=== PATIENT | female | born 1970 | race Caucasian/White ===

== ENCOUNTER 2020-01-29 11:47 | Outpatient (CLI) | payer SELFPAY ==
[2020-01-29 12:02] LABS: Hematocrit 43.6 % (35.0-49.0); Mean Corpuscular HGB Conc 32.1 g/dL (32.0-36.0); Mean Corpuscular Hemoglobin 27.9 pg (27.0-31.0); Mean Platelet Volume 10.4 fl (9.2-11.8); Platelet Count Result 143 K/mm3 (150-420); Red Blood Count 5.01 M/mm3 (4.20-5.40)
[2020-01-29 13:07] LABS: Alanine Aminotransferase 33 U/L (14-59); Albumin Level 3.4 g/dL (3.4-5.0); Alkaline Phosphatase 100 U/L (46-116); Anion Gap 17.1 mmol/L (7-16); Aspartate Amino Transferase 24 U/L (15-37); Bilirubin,Total 0.2 mg/dL (0.00-1.00); Blood Urea Nitrogen 12 mg/dL (7-18); Calcium 8.5 mg/dL (8.5-10.1); Carbon Dioxide 25 mmol/L (21-32); Chloride 106 mmol/L (98-108); Estimated Glomerular Filt Rate 58; Glucose 94 mg/dL (70-99); Osmolality Calculated 297 mOsm/kg (285-295); Potassium 4.1 mmol/L (3.5-5.1); Sodium 144 mmol/L (136-145); Total Protein 6.6 g/dL (6.4-8.2)
[2020-01-29 13:18] LABS: White Blood Count 47.4 K/mm3 (4.8-10.8)
[2020-01-29 13:19] LABS: Band Neutrophils Percent 1 % (0-6); Basophils Percent Manual 0 % (0-1); Eosinophils Percent Manual 0 % (1-6); Lymphocytes Absolute Manual 39.81 K/mm3 (1.1-4.5); Lymphocytes Percent Manual 84 % (18-44); Monocytes Absolute Manual 1.42 K/mm3 (0.1-0.90); Monocytes Percent Manual 3 % (3-9); Neutrophils Absolute Manual 6.16 K/mm3 (1.7-7.2); Neutrophils Percent Manual 12 % (46-73); Total Cells Counted 100
[2020-01-29 13:20] LABS: Atypical Lymphocytes Present; Platelet Estimate Adequate (Adequate)
== END 2020-01-29 11:48 | disposition home or self-care (01) ==
PROVIDERS: PCP Nurse Practitioner Family; Visit Provider Internal Medicine Hematology & Oncology
DX: Z79.899 Other long term (current) drug therapy (principal); C91.10 Chronic lymphocytic leukemia of B-cell type not having achieved remission
CPT/HCPCS: 36415; 80053; 85025

== ENCOUNTER 2020-06-14 20:45 | Emergency (ER) | payer MEDICAID, SELFPAY ==
[2020-06-14] VITALS (9 sets, daily range): BP systolic 161–219; BP diastolic 89–126; PULSE 83–130; RESP 20; TEMP 37.5–38.2; O2SAT 98
--- NOTE | ~2020-06-14 | XR_ITS ---
EXAMINATION: XR chest 2V DATE: 06/14/2020 21:55 INDICATION: Fever TECHNIQUE: PA and lateral views of the chest are obtained. COMPARISON: 10/15/2019 FINDINGS: The lungs are free of acute opacities. There is no pleural effusion or pneumothorax. The ca rdiomediastinal silhouette is normal. There is moderate thoracic spondylosis. IMPRESSION: 1. No acute cardiopulmonary abnormality. Reviewed, dictated and finalized at location A.
--- NOTE | ~2020-06-14 | CT_ITS ---
EXAMINATION: CT abdomen pelvis wo con DATE: 06/14/2020 21:55 INDICATION: Hematuria, history of CLL TECHNIQUE: Computed tomography (CT) of the abdomen and pelvis was performed without intravenous contr ast. The dose-length product (DLP) was 1474.14 mGy-cm. Automated exposure control and iterative recon struction technique were employed. COMPARISON: None FINDINGS: The lung bases are clear. The heart size is normal. The liver is diffusely low in attenuati on when compared with the spleen, consistent with hepatic steatosis. The enlarged spleen measures 18. 8 cm in craniocaudal dimension. The pancreas, gallbladder, and right adrenal gland are normal. There is a 1.4 cm adenoma of the left adrenal gland. The right kidney is unremarkable. There is a 1.[address] of the left kidney lower pole. No stones are identified in the kidneys, ureters, or bladder. There is no hydronephrosis or hydroureter. Enlarged pelvic and bilateral inguinal lymph nodes measure up t o 1.7 cm in short axis. The appendix is normal. There is no free intraperitoneal gas or evidence of b owel obstruction. There is moderate lumbar spondylosis. IMPRESSION: 1. No CT correlate for the patient's symptoms. 2. Splenomegaly and pelvic lymphadenopathy, likely related to history of CLL. Reviewed, dictated and finalized at location A.
[2020-06-14 21:03] LABS: Add Urine Microscopic? YES; Appearance Urine Sl Cloudy (Clear); Bilirubin Urine Negative (Negative); Blood Urine 3+ (Negative); Color Urine Yellow (Yellow); Glucose Urine UA Negative (Negative); Ketones Urine Negative (Negative); Leukocyte Esterase Ur Negative LEU/UL (Negative); Nitrate Urine Positive (Negative); Protein Urine 3+ (Negative); Specific Grav Ur >= 1.030 (1.010-1.020); pH Urine 5.5 (5.0-8.0)
[2020-06-14 21:10] LABS: Bacteria Urine 4+ /hpf; Mucus Urine Moderate /lpf; Squamous Epithelial Cell Urine Few /hpf (Few); WBC Urine 0-3 /hpf (0-3)
[2020-06-14] MEDS: ACETAMINOPHEN 500 MG TABLET 1000 MG PO (21:11)
[2020-06-14] MEDS: cloNIDine HCL 0.2 MG TABLET PO (21:11)
[2020-06-14 21:34] LABS: Hematocrit 43.6 % (35.0-49.0); Hemoglobin 13.7 g/dL (12.0-15.0); Mean Corpuscular HGB Conc 31.4 g/dL (32.0-36.0); Mean Corpuscular Hemoglobin 28.6 pg (27.0-31.0); Mean Platelet Volume 10.2 fl (9.2-11.8); Platelet Count Result 173 K/mm3 (150-420); Red Blood Count 4.79 M/mm3 (4.20-5.40); Red Cell Distribution Width 16.1 % (11.6-14.4)
[2020-06-14 21:49] LABS: Partial Thromboplastin Time 24.6 SEC (22.3-31.6); Prothrombin Time 10.7 Seconds (9.64-11.0)
[2020-06-14 21:50] LABS: Alanine Aminotransferase 27 U/L (14-59); Albumin Level 3.5 g/dL (3.4-5.0); Alkaline Phosphatase 123 U/L (46-116); Anion Gap 12 mmol/L (8-16); Aspartate Amino Transferase 19 U/L (15-37); Bilirubin,Total 0.4 mg/dL (0.00-1.00); Blood Urea Nitrogen 16 mg/dL (7-18); Calcium 8.6 mg/dL (8.5-10.1); Carbon Dioxide 25 mmol/L (21-32); Chloride 103 mmol/L (98-108); Estimated CRCL calculation 53 ml/min; Estimated Glomerular Filt Rate 36; Glucose 109 mg/dL (70-99); Lipase 160 U/L (73-393); Osmolality Calculated 292 mOsm/kg (285-295); Potassium 3.5 mmol/L (3.5-5.1); Sodium 140 mmol/L (136-145); Total Protein 7.5 g/dL (6.4-8.2)
[2020-06-14 21:51] LABS: White Blood Count 87.2 K/mm3 (4.8-10.8)
[2020-06-14 21:55] LABS: Lactic Acid Reflex 1.6 mmol/L (0.4-2.0)
[2020-06-14 21:59] LABS: Band Neutrophils Percent 1 % (0-6); Eosinophils Absolute Manual 1.74 K/mm3 (0.02-0.5); Eosinophils Percent Manual 2 % (1-6); Lymphocytes Absolute Manual 68.88 K/mm3 (1.1-4.5); Lymphocytes Percent Manual 79 % (18-44); Neutrophils Absolute Manual 10.46 K/mm3 (1.7-7.2); Neutrophils Percent Manual 11 % (46-73); Total Cells Counted 100
[2020-06-14 22:00] LABS: Monocytes Percent Manual 7 % (3-9); Platelet Estimate Adequate (Adequate); Smudge Cells FEW
[2020-06-14 22:01] LABS: Atypical Lymphocytes Present
[2020-06-14] MEDS: amLODIPine BESYLATE 5 MG TABLET 10 MG PO (22:16)
[2020-06-14] MEDS: lisinopriL 20 MG TABLET 40 MG PO (22:21)
[2020-06-14] MEDS: METOPROLOL SUCCINATE EXT REL 25 MG TABCR PO (22:21)
--- NOTE | 2020-06-14 22:21 | ED.ABDPAIN ---
HPI - Abdominal Pain General Chief Complaint: Urogenital-Female Stated Complaint: 49YO morbidly obese female w/ known h/o CLL 9Currently under wait & Watch) here c/o 1 day h/o suprapubic pain associated w/ incomplete sensation of emptying. Patient admits she has not taken her meds for Bp today comes into ed for eval concerned about a possible kidney infection Related Data Home Medications Medication Instructions Recorded Confirmed lisinopril 40 mg PO BID 10/15/19 06/14/20 metoprolol succinate 25 mg PO DAILY 10/15/19 06/14/20 Allergies Allergy/AdvReac Type Severity Reaction Status Date / Time No Known Allergies Allergy Verified 05/11/20 07:28 Review of Systems Review of Systems: All systems reviewed & are unremarkable except as noted in HPI and below Constitutional: Constitutional: Reports as per HPI and Reports fever(s) Eyes: Eyes: Reports no additional eye complaints ENT: Reports system reviewed and no additional complaints, except as documented, Denies dysphagia, Denies vertigo, Denies dizziness, Denies epistaxis, Denies nasal congestion and Denies sore throat Cardiovascular: Cardiovascular: Reports no additional cardiovascular complaints and Reports rapid heart rate Respiratory: Respiratory: Reports no additional respiratory complaints, Denies chest congestion, Denies cough, Denies dyspnea and Denies wheezing Gastrointestinal: Gastrointestinal: Reports abdominal pain Genitourinary: Genitourinary: Reports as per HPI, Reports hematuria and Reports dysuria Musculoskeletal: Musculoskeletal: Reports no additional musculoskeletal complaints Integumentary/Breasts: Skin/Breast: Reports system reviewed and no additional complaints, except as docu Neurologic: Reports system reviewed and no additional complaints, except as documented, Denies vertigo, Denies dizziness, Denies syncope and Denies focal weakness Psychiatric: Psychiatric: Reports no additional psychiatric complaints Endocrine: Endocrine: Reports no additional endocrine complaints [facility] Past Medical History Medical History CLL (chronic lymphocytic leukemia) DVT (deep venous thrombosis) Hypertension Nicotine dependence, cigarettes, uncomplicated Superficial granulomatous pyoderma Vasculitis Surgical History Surgical History History of adenoidectomy Hx of tonsillectomy Family History Family History Father COPD (chronic obstructive pulmonary disease) Social History Social History Smoking status: Current every day smoker Additional occupation/education comments: [employer] Exam Const: General: alert and diaphoretic Nutritional Appearance: obese Orientation/consciousness: patient oriented x3 HENMT: Head: normal to inspection Eyes: Conjunctivae: conjunctivae normal Pupils: Equal, round and reactive pupils present Neck: Neck: normal visual inspection Chest: Chest palpation & inspection: normal inspection of the chest Resp: Effort & Inspection: normal respiratory effort Auscultation: clear to auscultation bilaterally Cardio: Rate: regular rate and tachycardic Rhythm: regular rhythm GI: GI Palp: Yes Soft to palpation, No Tenderness to palpation present (GI), No Guarding due to palpation present (GI), No Rigid due to palpation and No Rebound tenderness present Auscultation: normal bowel sounds : General: Yes no CVA tenderness Back/Spine/Pelvis: Back: no CVA tenderness Skin: General skin exam: normal color Neuro: General: patient oriented x3, moves all extremities, no focal motor deficits and CN's II-XI intact bilaterally Extrem: General: normal to inspection Psych: Appearance: grossly normal Mental Status: mental status grossly normal Affect: normal affect Attitude: cooperative Thought cont
--- NOTE | 2020-06-14 22:31 | PC.NURSE ---
ALL BLOOD PRESSURE MEDICATIONS GIVEN VERIFIED BY ERP - BLOOD PRESSURE 169/98 - PT REPORTS ALWAYS HAVING AN ELEVATED WBC COUNT R/T HER LEUKEMIA - PT ASKING WHY SHE CANNOT HAVE ANTIBIOTICS FOR SYMPTOMS - ERP AT BEDSIDE INFORMS PATIENT WE ARE CALLING [facility] TO SPEAK WITH SOMEONE ABOUT TRANSFER
--- NOTE | 2020-06-14 23:29 | PC.NURSE ---
VORB FOR NS WAS A SLOW RATE D/T HIGH BLOOD PRESSURE - ONLY 300 ML INFUSED AT DISCHARGE - PT SIGNS AMA FORM SHE DOES NOT WANT TO BE TAKEN TO [facility] BY AMBULANCE. PT STATES THAT SHE WANTS HER DAUGHTER TO TAKE HER SO THAT SHE CAN HAVE HER OWN BELONGINGS.
== END 2020-06-14 23:34 | disposition left against medical advice (07) ==
PROVIDERS: Emergency Provider Family Medicine; PCP Family Medicine
DX: C91.10 Chronic lymphocytic leukemia of B-cell type not having achieved remission (principal); N30.01 Acute cystitis with hematuria; N17.9 Acute kidney failure, unspecified
CPT/HCPCS: 36415; 71046; 74176; 80053; 81001; 83605; 83690; 85025; 85610; 85730; 87040; 87077; 87086; 87088; 87186; 96361; 96365; 96375; 99284; A9270; J2060; J2543; J7030

== ENCOUNTER 2020-06-15 18:31 | Emergency (ER) | payer MEDICAID, SELFPAY ==
--- NOTE | ~2020-06-15 | XR_ITS ---
XR heel LT min 2V DATE: 06/15/2020 19:05 INDICATION: Heel pain TECHNIQUE: Axial and lateral views COMPARISON: None FINDINGS: There is prominent plantar and posterior calcaneal enthesopathy. No fracture or dislocation or bone destruction of the calcaneus. There is osteoarthritic mild spurring at the tibiotalar joint. IMPRESSION: Plantar and posterior calcaneal enthesopathy Reviewed, dictated and finalized at location A.
[2020-06-15 18:40] VITALS: BP 154/79; PULSE 61; RESP 16; TEMP 36.7; O2SAT 96
--- NOTE | 2020-06-15 18:49 | ED.GENADULT ---
HPI - General Adult General Chief complaint: Extremity Problem,Nontraumatic Stated complaint: L Heal Pain Source: patient Mode of arrival: ambulatory Limitations: no limitations History of Present Illness HPI narrative: Nicole is a 49F with a PMH of HTN, pyoderma gangrenosum, tobacco abuse, vasculitis, urosepsis, and CLL that presented to the ED with concerns of a UTI and left heel pain. Yesterday she had some urinary retention, a fever, fatige, nausea and felt flushed. This is how she has felt with her UTIs that progressed to sepsis in the past. She came to the ED and was found to have a wildly elevated WBC count and a UA consistent UTI. She received Zosyn in the ED and was suppose to be transferred to [place] but signed out AMA and never went. Today she continues to have fatigue, is feeling flushed, some nausea and some trouble emptying her bladder but no hematuria or dysuria. She denies any more fevers, SOB, CP, syncope or confusion. She switched shoes recently and how has left heel swelling and pain. It is worse with activity and better with rest. She is having to walk on the ball of her foot because her heel is so painful. Related Data Home Medications Medication Instructions Recorded Confirmed lisinopril 40 mg PO BID 10/15/19 06/15/20 metoprolol succinate 25 mg PO DAILY 10/15/19 06/15/20 Allergies Allergy/AdvReac Type Severity Reaction Status Date / Time No Known Allergies Allergy Verified 05/11/20 07:28 Review of Systems Constitutional: Constitutional: Denies chills, Reports fatigue, Denies fever(s) and Reports weakness Eyes: Eyes: Reports no additional eye complaints ENT: Reports system reviewed and no additional complaints, except as documented Cardiovascular: Cardiovascular: Reports no additional cardiovascular complaints Respiratory: Respiratory: Reports no additional respiratory complaints Gastrointestinal: Gastrointestinal: Denies diarrhea, Reports nausea and Denies vomiting Genitourinary: Genitourinary: Reports as per HPI Musculoskeletal: Musculoskeletal: Reports as per HPI Integumentary/Breasts: Skin/Breast: Reports system reviewed and no additional complaints, except as docu Neurologic: Reports system reviewed and no additional complaints, except as documented Psychiatric: Psychiatric: Reports no additional psychiatric complaints Endocrine: Endocrine: Reports no additional endocrine complaints Hematologic/Lymphatic: Hematologic/Lymphatic: Reports no additional hematologic/lymphatic complaints Allergic/Immunologic: Allergic/Immunologic: Reports no additional allergic/immunologic complaints [facility] Past Medical History Medical History CLL (chronic lymphocytic leukemia) DVT (deep venous thrombosis) Hypertension Nicotine dependence, cigarettes, uncomplicated Superficial granulomatous pyoderma Vasculitis Surgical History Surgical History History of adenoidectomy Hx of tonsillectomy Family History Family History Father COPD (chronic obstructive pulmonary disease) Social History Social History Smoking status: Current every day smoker Additional occupation/education comments: [employer] Exam Const: General: no acute distress and alert Orientation/consciousness: patient oriented x3 Limitations: No altered mental status HENMT: Head: normal to inspection Eyes: Conjunctivae: conjunctivae normal Pupils: Equal, round and reactive pupils present Neck: Neck: normal visual inspection Resp: Effort & Inspection: normal respiratory effort and not labored Auscultation: clear to auscultation bilaterally Cardio: Rate: regular rate Rhythm: regular rhythm Heart sounds: no murmurs GI: GI Palp: Yes Soft to palpation, No Tenderness to palpation present (GI
[2020-06-15 19:12] LABS: Hematocrit 42.6 % (35.0-49.0); Hemoglobin 13.4 g/dL (12.0-15.0); Mean Corpuscular HGB Conc 31.5 g/dL (32.0-36.0); Mean Corpuscular Hemoglobin 28.8 pg (27.0-31.0); Mean Corpuscular Volume 91.6 fL (78.0-102.0); Mean Platelet Volume 9.9 fl (9.2-11.8); Platelet Count Result 146 K/mm3 (150-420); Red Blood Count 4.65 M/mm3 (4.20-5.40); Red Cell Distribution Width 16.1 % (11.6-14.4)
[2020-06-15 19:29] LABS: Alanine Aminotransferase 22 U/L (14-59); Albumin Level 3.1 g/dL (3.4-5.0); Alkaline Phosphatase 108 U/L (46-116); Anion Gap 12 mmol/L (8-16); Aspartate Amino Transferase 16 U/L (15-37); Bilirubin,Total 0.5 mg/dL (0.00-1.00); Blood Urea Nitrogen 15 mg/dL (7-18); Calcium 8.7 mg/dL (8.5-10.1); Carbon Dioxide 24 mmol/L (21-32); Chloride 105 mmol/L (98-108); Estimated Glomerular Filt Rate 40; Glucose 99 mg/dL (70-99); Osmolality Calculated 292 mOsm/kg (285-295); Potassium 3.7 mmol/L (3.5-5.1); Sodium 141 mmol/L (136-145)
[2020-06-15 19:37] LABS: Add Urine Microscopic? YES; Appearance Urine Clear (Clear); Bilirubin Urine 1+ (Negative); Blood Urine 3+ (Negative); Color Urine Yellow (Yellow); Glucose Urine UA Negative (Negative); Ketones Urine Negative (Negative); Leukocyte Esterase Ur Negative (Negative); Nitrate Urine Negative (Negative); Protein Urine 3+ (Negative); Specific Grav Ur >= 1.030 (1.010-1.020); pH Urine 5.5 (5.0-8.0)
[2020-06-15 19:42] LABS: White Blood Count 53.9 K/mm3 (4.8-10.8)
[2020-06-15 19:43] LABS: Platelet Estimate Adequate (Adequate)
[2020-06-15 19:44] LABS: Band Neutrophils Percent 0 % (0-6); Basophils Percent Manual 0 % (0-1); Eosinophils Absolute Manual 0.53 K/mm3 (0.02-0.5); Eosinophils Percent Manual 1 % (1-6); Lymphocytes Absolute Manual 43.12 K/mm3 (1.1-4.5); Lymphocytes Percent Manual 80 % (18-44); Monocytes Absolute Manual 1.07 K/mm3 (0.1-0.90); Monocytes Percent Manual 2 % (3-9); Neutrophils Absolute Manual 9.16 K/mm3 (1.7-7.2); Neutrophils Percent Manual 17 % (46-73); Smudge Cells FEW; Total Cells Counted 100
[2020-06-15 19:48] LABS: WBC Urine 0-3 /hpf (0-3)
[2020-06-15 19:49] LABS: Bacteria Urine Trace /hpf; Squamous Epithelial Cell Urine Moderate /hpf (Few)
[2020-06-15] MEDS: cefTRIAXone 1 GM VIAL 2 GM IM (20:00)
[2020-06-15 20:17] VITALS: RESP 17
== END 2020-06-15 20:18 | disposition home or self-care (01) ==
PROVIDERS: Emergency Provider Family Medicine; PCP Family Medicine
DX: N39.0 Urinary tract infection, site not specified (principal); M77.52 Other enthesopathy of left foot and ankle; I10 Essential (primary) hypertension; C91.10 Chronic lymphocytic leukemia of B-cell type not having achieved remission; L88 Pyoderma gangrenosum; I77.6 Arteritis, unspecified; F17.200 Nicotine dependence, unspecified, uncomplicated; Z86.718 Personal history of other venous thrombosis and embolism
CPT/HCPCS: 36415; 73650; 80053; 81001; 85025; 96372; 99283; J0696

== ENCOUNTER 2020-09-24 09:01 | Outpatient (CLI) | payer OTHER, SELFPAY ==
[2020-09-24 09:36] LABS: SARS-CoV-2 Ag Negative (Negative)
[2020-09-25 20:00] LABS: SARS-CoV-2 RNA PCR Negative
== END 2020-09-24 09:02 | disposition home or self-care (01) ==
PROVIDERS: PCP Nurse Practitioner Family; Visit Provider Nurse Practitioner Family
DX: R48.1 Agnosia (principal); R43.0 Anosmia; Z20.828 Contact with and (suspected) exposure to other viral communicable diseases
CPT/HCPCS: 87426; 87635; C9803; U0003

== ENCOUNTER 2020-10-07 09:59 | Outpatient (CLI) | payer OTHER, SELFPAY ==
[2020-10-07 10:51] LABS: SARS-CoV-2 Ag Positive (Negative)
== END 2020-10-07 10:00 | disposition home or self-care (01) ==
PROVIDERS: PCP Family Medicine; Visit Provider Nurse Practitioner Family
DX: U07.1 COVID-19 (principal)
CPT/HCPCS: 87426

== ENCOUNTER 2020-10-18 19:07 | Emergency (ER) | payer OTHER, SELFPAY ==
--- NOTE | ~2020-10-18 | XR_ITS ---
EXAMINATION: XR chest 2V DATE: 10/18/2020 20:05 INDICATION: Cough and weakness. TECHNIQUE: Frontal and lateral views of the chest were obtained. COMPARISON: Chest 2 views 06/14/2020, CT abdomen and pelvis 06/14/2020 FINDINGS: There are mild airspace opacities in the lower lung zones. No pleural effusion or pneumotho rax. The heart size is normal. IMPRESSION: 1. Mild airspace opacities in the lower lung zones, consistent with atelectasis versus pneumonia. Reviewed, dictated and finalized at location A. S OR [employer]
[2020-10-18 19:10] VITALS: BP 133/92; PULSE 91; RESP 20; TEMP 36.8; O2SAT 92
--- NOTE | 2020-10-18 19:27 | ED.WEAKNESS ---
HPI - Weakness General Chief complaint: Anxiety Stated complaint: weakness,tingling lips Time Seen by Provider: 10/18/20 19:27 Source: patient Mode of arrival: ambulatory Limitations: no limitations History of Present Illness HPI Narrative: 50-year-old woman with CLL and CKD comes in today complaining of 3 days of weakness, shakiness, nausea, diarrhea, and fatigue. Patient states that she has had similar symptoms in the past with the UTI only she does not have dysuria, hematuria or urinary frequency. She denies shortness of breath, chest pain, vomiting, abdominal pain, blood in her stools, blood in her vomitus. She states she has a persistent cough is modestly productive but that has been improving since her diagnosis of COVID-19 on October 07. Complaint: generalized weakness Onset (ago): day(s) (3) Duration: constant Location: generalized Migration: none Severity: moderate Quality: tingling Relieving factors: none Exacerbating factors: none Associated symptoms: denies other symptoms Related Data Home Medications Medication Instructions Recorded Confirmed amlodipine 10 mg PO DAILY 10/18/20 10/18/20 Allergies Allergy/AdvReac Type Severity Reaction Status Date / Time ginseng AdvReac Unknown Verified 10/18/20 19:37 Review of Systems Constitutional: Constitutional: Denies chills, Reports fatigue, Denies fever(s) and Reports weakness Eyes: Eyes: Denies change in vision and Denies photophobia ENT: Denies dysphagia, Denies nasal congestion and Denies sore throat Cardiovascular: Cardiovascular: Denies chest pain and Denies radiating jaw, neck or arm pain Respiratory: Respiratory: Reports cough, Denies dyspnea and Denies wheezing Gastrointestinal: Gastrointestinal: Denies abdominal pain, Reports diarrhea, Reports nausea and Denies vomiting Genitourinary: Genitourinary: Denies hematuria, Denies nocturia and Denies dysuria Musculoskeletal: Musculoskeletal: Denies arthralgias and Denies joint swelling Integumentary/Breasts: Skin/Breast: Denies pruritus, Denies erythema and Denies rash Neurologic: Denies vertigo, Denies dizziness and Denies syncope Hematologic/Lymphatic: Hematologic/Lymphatic: Denies easy bleeding and Denies easy bruising Allergic/Immunologic: Allergic/Immunologic: Denies lip swelling and Denies throat swelling PMFSH Past Medical History Medical History CLL (chronic lymphocytic leukemia) DVT (deep venous thrombosis) History of arterial occlusion Hypertension Nicotine dependence, cigarettes, uncomplicated Obesity Pyoderma gangrenosa Superficial granulomatous pyoderma Vasculitis Surgical History Surgical History History of adenoidectomy Hx of tonsillectomy Family History Family History Father COPD (chronic obstructive pulmonary disease) Social History Social History Smoking status: Current every day smoker Additional occupation/education comments: [employer] Exam Const: General: alert Nutritional Appearance: obese Orientation/consciousness: patient oriented x3 Limitations: no limitations Other: mild acute distress. HENMT: Head: normal to inspection Ears: external ears normal, TM's normal bilaterally and EAC's normal General nose exam: Normal nares present Face and sinus: normal facial exam Mouth: Yes moist mucous membranes Throat: posterior oropharynx normal Eyes: Conjunctivae: conjunctivae normal Pupils: Equal, round and reactive pupils present EOM: EOMs intact bilaterally Resp: Effort & Inspection: normal respiratory effort and not labored Auscultation: clear to auscultation bilaterally, no rales, no rhonchi and no wheezes Cardio: Rate: regular rate Rhythm: regular rhythm Heart sounds: no murmurs GI: GI Palp: Yes Soft to pa
--- NOTE | 2020-10-18 19:36 | ECG_ITS ---
Measurements Intervals [place] Rate: 80 P: 34 DC: 169 QRS: 15 QRSD: 104 T: 115 QT: 366 QTc: 424 Interpretive Statements SINUS RHYTHM POSSIBLE LEFT ATRIAL ENLARGEMENT INCOMPLETE RIGHT BUNDLE BRANCH BLOCK DELAYED PRECORDIAL R/S TRANSITION ST-T WAVE ABNORMALITY IN HIGH LATERAL LEADS- CONSIDER ISCHEMIA BASELINE ARTIFACT- I, II, III, AVR, AVL, AVF, V1-V2 ABNORMAL ECG Electronically Signed On 10-19-2020 7:15:05 PAINTER by Santy Gomez D.O.
[2020-10-18 19:58] LABS: Hematocrit 45.1 % (35.0-49.0); Hemoglobin 14.5 g/dL (12.0-15.0); Mean Corpuscular HGB Conc 32.2 g/dL (32.0-36.0); Mean Corpuscular Volume 87.2 fL (78.0-102.0); Mean Platelet Volume 10.4 fl (9.2-11.8); Platelet Count Result 174 K/mm3 (150-420); Red Blood Count 5.17 M/mm3 (4.20-5.40); Red Cell Distribution Width 15.9 % (11.6-14.4)
[2020-10-18 20:05] LABS: Add Urine Microscopic? YES; Bilirubin Urine Negative (Negative); Blood Urine 1+ (Negative); Color Urine Yellow (Yellow); Glucose Urine UA Negative (Negative); Ketones Urine Negative (Negative); Leukocyte Esterase Ur Trace (Negative); Nitrate Urine Negative (Negative); Protein Urine 2+ (Negative); Specific Grav Ur >= 1.030 (1.010-1.020); Urobilinogen Urine 0.2 mg/dL (0.2-1.0)
[2020-10-18 20:15] LABS: Alanine Aminotransferase 49 U/L (14-59); Albumin Level 3.5 g/dL (3.4-5.0); Alkaline Phosphatase 104 U/L (46-116); Anion Gap 11 mmol/L (8-16); Aspartate Amino Transferase 26 U/L (15-37); Bilirubin,Total 0.4 mg/dL (0.00-1.00); Blood Urea Nitrogen 42 mg/dL (7-18); Calcium 8.7 mg/dL (8.5-10.1); Carbon Dioxide 26 mmol/L (21-32); Chloride 101 mmol/L (98-108); Estimated CRCL calculation 38 ml/min; Estimated Glomerular Filt Rate 26; Glucose 121 mg/dL (70-99); Osmolality Calculated 297 mOsm/kg (285-295); Potassium 3.7 mmol/L (3.5-5.1); Sodium 138 mmol/L (136-145); Total Protein 7.5 g/dL (6.4-8.2)
[2020-10-18 20:18] LABS: Lactic Acid Reflex 1.8 mmol/L (0.4-2.0)
[2020-10-18 20:19] LABS: Appearance Urine Cloudy (Clear); Squamous Epithelial Cell Urine Many /hpf (Few)
[2020-10-18 20:20] LABS: Bacteria Urine 4+ /hpf; Mucus Urine Moderate /lpf
[2020-10-18 20:23] LABS: White Blood Count 58.4 K/mm3 (4.8-10.8)
[2020-10-18 20:24] LABS: Band Neutrophils Percent 0 % (0-6); Eosinophils Absolute Manual 0.58 K/mm3 (0.02-0.5); Eosinophils Percent Manual 1 % (1-6); Lymphocytes Absolute Manual 44.96 K/mm3 (1.1-4.5); Lymphocytes Percent Manual 77 % (18-44); Neutrophils Absolute Manual 12.84 K/mm3 (1.7-7.2); Neutrophils Percent Manual 22 % (46-73)
[2020-10-18 20:25] LABS: Atypical Lymphocytes Present
[2020-10-18 20:27] LABS: Monocytes Percent Manual 0 % (3-9); Total Cells Counted 100
[2020-10-18 20:28] LABS: Platelet Estimate Adequate (Adequate)
[2020-10-18] MEDS: SODIUM CHLORIDE 0.9% IV 1,000 ML 999 ML IV CONT (20:36)
[2020-10-18 21:24] VITALS: BP 144/82; PULSE 68; RESP 20; TEMP 36.6; O2SAT 97
== END 2020-10-18 21:34 | disposition home or self-care (01) ==
PROVIDERS: Emergency Provider Emergency Medicine; PCP Family Medicine
DX: E86.0 Dehydration (principal); N30.00 Acute cystitis without hematuria; N17.9 Acute kidney failure, unspecified; F17.200 Nicotine dependence, unspecified, uncomplicated
CPT/HCPCS: 36415; 71046; 80053; 81001; 83605; 84484; 85025; 86140; 87077; 87086; 87088; 87186; 93005; 96365; 99284; J0696; J7030

== ENCOUNTER 2020-12-07 13:04 | Outpatient (CLI) | payer OTHER, SELFPAY ==
[2020-12-07 14:42] LABS: Cholesterol 196 mg/dL (0-200); HDL Direct 32 mg/dL (40-60); LDL Cholesterol Calculated 108 mg/dL (<130); Triglycerides 280 mg/dL (0-150)
== END 2020-12-07 13:05 | disposition home or self-care (01) ==
LOC: CHSLAB 13:06
PROVIDERS: PCP Family Medicine; Visit Provider Family Medicine
DX: E66.9 Obesity, unspecified (principal); I10 Essential (primary) hypertension
CPT/HCPCS: 36415; 80061

== ENCOUNTER 2020-12-22 16:47 | Outpatient (CLI) | payer OTHER, SELFPAY ==
[2020-12-22 17:17] LABS: Creatinine Urine 100.64 mg/dL (40-278); Total Protein Urine Random 230.1 mg/dL (0.0-11.9); Ur Ttl Prot Creatinine Ratio 2.29 mg/mg (0-0.20)
[2020-12-22 17:36] LABS: Albumin Level 3.5 g/dL (3.4-5.0); Anion Gap 8 mmol/L (8-16); Blood Urea Nitrogen 23 mg/dL (7-18); Calcium 8.7 mg/dL (8.5-10.1); Carbon Dioxide 29 mmol/L (21-32); Chloride 103 mmol/L (98-108); Estimated Glomerular Filt Rate 48; Glucose 89 mg/dL (70-99); Osmolality Calculated 292 mOsm/kg (285-295); Phosphorus 4.8 mg/dL (2.6-4.7); Potassium 3.9 mmol/L (3.5-5.1); Sodium 140 mmol/L (136-145)
[2020-12-22 17:40] LABS: MALB Creatinine Ratio 397.4 mg/g (0-30); Microalbumin Urine Random > 400.0 mg/L
== END 2020-12-22 16:48 | disposition home or self-care (01) ==
LOC: CHSLAB 16:48
PROVIDERS: PCP Family Medicine
DX: N18.30 Chronic kidney disease, stage 3 unspecified (principal)
CPT/HCPCS: 36415; 80069; 82043; 82570; 84156

== ENCOUNTER 2021-01-11 16:04 | Outpatient (CLI) | payer OTHER, SELFPAY ==
[2021-01-11 17:12] LABS: SARS-CoV-2 RNA PCR Negative (Negative)
== END 2021-01-11 16:05 | disposition home or self-care (01) ==
LOC: CHSLAB 16:06
PROVIDERS: PCP Family Medicine; Visit Provider Family Medicine
DX: R43.9 Unspecified disturbances of smell and taste (principal); Z20.822 Contact with and (suspected) exposure to COVID-19
CPT/HCPCS: C9803; U0003; U0005

== ENCOUNTER 2021-04-27 18:33 | Emergency (ER) | payer OTHER, SELFPAY ==
[2021-04-27 18:45] VITALS: BP 176/87; PULSE 81; RESP 18; TEMP 36.4; O2SAT 97
[2021-04-27 19:20] LABS: Add Urine Microscopic? YES; Appearance Urine Clear (Clear); Bilirubin Urine Negative (Negative); Blood Urine 3+ (Negative); Color Urine Light Yellow (Yellow); Glucose Urine UA Negative (Negative); Ketones Urine Negative (Negative); Leukocyte Esterase Ur Negative LEU/UL (Negative); Nitrate Urine Negative (Negative); Protein Urine 3+ (Negative); Specific Grav Ur 1.025 (1.010-1.020); Urobilinogen Urine 0.2 mg/dL (0.2-1.0)
[2021-04-27 19:25] LABS: Bacteria Urine 4+ /hpf; Budding Yeast Urine Present /hpf; Squamous Epithelial Cell Urine Few /hpf (Few)
--- NOTE | 2021-04-27 19:40 | ED.ABDPAIN ---
HPI - Abdominal Pain General Chief Complaint: Urogenital-Female Stated Complaint: UTI Time Seen by Provider: 04/27/21 18:47 Source: patient and RN notes reviewed Mode of arrival: ambulatory Limitations: no limitations History of Present Illness HPI narrative: Urinary frequency and chills. MD elicited complaint: abdominal pain Pertinent past history: past UTI Onset (ago): day(s) (1) Pain Consistency: constant Location: suprapubic Severity: mild Pain scale (0-10): 2 Quality: cramping Exacerbating factors: nothing Relieving factors: nothing Associated symptoms: denies other symptoms Related Data Patient : No Allergies Allergy/AdvReac Type Severity Reaction Status Date / Time ginseng AdvReac Unknown Verified 12/07/20 07:24 Tetracyclines AdvReac Other Verified 04/27/21 19:03 Review of Systems Review of Systems: All systems reviewed & are unremarkable except as noted in HPI and below Constitutional: Constitutional: Reports as per HPI and Reports no additional constitutional complaints Eyes: Eyes: Reports as per HPI and Reports no additional eye complaints ENT: Reports system reviewed and no additional complaints, except as documented and Reports as per HPI Cardiovascular: Cardiovascular: Reports as per HPI and Reports no additional cardiovascular complaints Respiratory: Respiratory: Reports as per HPI and Reports no additional respiratory complaints Gastrointestinal: Gastrointestinal: Reports as per HPI and Reports no additional gastrointestinal complaints Genitourinary: Genitourinary: Reports no additional female genitourinary complaints and Reports as per HPI Musculoskeletal: Musculoskeletal: Reports no additional musculoskeletal complaints and Reports as per HPI Integumentary/Breasts: Skin/Breast: Reports system reviewed and no additional complaints, except as docu and Reports as per HPI Neurologic: Reports system reviewed and no additional complaints, except as documented and Reports as per HPI Psychiatric: Psychiatric: Reports no additional psychiatric complaints and Reports as per HPI Endocrine: Endocrine: Reports no additional endocrine complaints and Reports as per HPI Hematologic/Lymphatic: Hematologic/Lymphatic: Reports no additional hematologic/lymphatic complaints and Reports as per HPI Allergic/Immunologic: Allergic/Immunologic: Reports no additional allergic/immunologic complaints and Reports as per HPI PMFSH Past Medical History Medical History CLL (chronic lymphocytic leukemia) DVT (deep venous thrombosis) History of arterial occlusion Hypertension Nicotine dependence, cigarettes, uncomplicated Obesity Pyoderma gangrenosa Superficial granulomatous pyoderma Vasculitis Surgical History Surgical History History of adenoidectomy Hx of tonsillectomy Family History Family History Father COPD (chronic obstructive pulmonary disease) Social History Social History Smoking status: Current every day smoker Additional occupation/education comments: [employer] Exam Const: General: no acute distress and alert Orientation/consciousness: patient oriented x3 Limitations: no limitations HENMT: Head: normal to inspection Ears: external ears normal and TM's normal bilaterally General nose exam: Normal external nose present and Normal nares present Mouth: Yes lip normal and Yes moist mucous membranes Teeth and gingiva: dentition normal Eyes: Conjunctivae: conjunctivae normal Pupils: Equal, round and reactive pupils present EOM: EOMs intact bilaterally Neck: Neck: normal visual inspection and no lymphadenopathy Chest: Chest palpation & inspection: normal inspection of the chest and abnormal inspection of the chest Resp: Effort & Inspection: normal respi
[2021-04-27 19:49] VITALS: BP 176/87; PULSE 84; RESP 20; TEMP 36.4; O2SAT 97
[2021-04-27] MEDS: cefTRIAXone 1 GM VIAL IM (19:49)
== END 2021-04-27 20:00 | disposition home or self-care (01) ==
PROVIDERS: Emergency Provider Emergency Medicine; PCP Family Medicine
DX: N30.00 Acute cystitis without hematuria (principal)
CPT/HCPCS: 81001; 96372; 99283; J0696

== ENCOUNTER 2021-06-22 16:56 | Outpatient (CLI) | payer OTHER, SELFPAY ==
[2021-06-22 17:15] LABS: Hematocrit 41.4 % (35.0-49.0); Mean Corpuscular HGB Conc 31.4 g/dL (32.0-36.0); Mean Corpuscular Hemoglobin 28.5 pg (27.0-31.0); Mean Corpuscular Volume 90.8 fL (78.0-102.0); Mean Platelet Volume 10.2 fl (9.2-11.8); Platelet Count Result 161 K/mm3 (150-420); Red Blood Count 4.56 M/mm3 (4.20-5.40); Red Cell Distribution Width 17.2 % (11.6-14.4)
[2021-06-22 17:22] LABS: White Blood Count 87.3 K/mm3 (4.8-10.8)
[2021-06-22 17:30] LABS: Creatinine Urine 109.64 mg/dL (40-278)
[2021-06-22 17:34] LABS: Albumin Level 3.5 g/dL (3.4-5.0); Anion Gap 12 mmol/L (8-16); Blood Urea Nitrogen 22 mg/dL (7-18); Calcium 8.6 mg/dL (8.5-10.1); Carbon Dioxide 27 mmol/L (21-32); Chloride 106 mmol/L (98-108); Estimated Glomerular Filt Rate 49; Glucose 83 mg/dL (70-99); Osmolality Calculated 302 mOsm/kg (285-295); Phosphorus 4.5 mg/dL (2.6-4.7); Potassium 4.2 mmol/L (3.5-5.1); Sodium 145 mmol/L (136-145)
[2021-06-22 17:36] LABS: Band Neutrophils Percent 1 % (0-6); Basophils Percent Manual 0 % (0-1); Eosinophils Absolute Manual 1.74 K/mm3 (0.02-0.5); Eosinophils Percent Manual 2 % (1-6); Lymphocytes Absolute Manual 72.45 K/mm3 (1.1-4.5); Lymphocytes Percent Manual 83 % (18-44); Monocytes Absolute Manual 2.61 K/mm3 (0.1-0.90); Monocytes Percent Manual 3 % (3-9); Neutrophils Absolute Manual 10.47 K/mm3 (1.7-7.2); Neutrophils Percent Manual 11 % (46-73); Platelet Estimate Adequate (Adequate); Total Cells Counted 100
[2021-06-22 17:46] LABS: MALB Creatinine Ratio 364.8 mg/g (0-30); Microalbumin Urine Random > 400.0 mg/L
[2021-06-25 13:25] LABS: Vitamin D 25 Hydroxy 18 ng/mL (30-100)
[2021-06-26 11:10] LABS: Parathyroid Intact 73 pg/mL (14-64)
== END 2021-06-22 16:57 | disposition home or self-care (01) ==
LOC: CHSLAB 16:59
PROVIDERS: PCP Family Medicine
DX: N18.30 Chronic kidney disease, stage 3 unspecified (principal)
CPT/HCPCS: 36415; 80069; 82043; 82306; 83970; 85025

== ENCOUNTER 2021-08-22 14:19 | Emergency (ER) | payer OTHER, SELFPAY ==
--- NOTE | 2021-08-22 15:12 | ED.FEMALEGU ---
HPI - Female Genitourinary General Chief complaint: Urogenital-Female Stated complaint: chills, possible fever, nausea Time Seen by Provider: 08/22/21 15:13 Source: patient Mode of arrival: ambulatory Limitations: no limitations History of Present Illness HPI Narrative: 51-year-old woman with a history of recurrent UTIs, CLL, chronic renal failure, and vasculitis comes to the ED complaining of chills, fever, nausea and lethargy for 3 days. She states that she has a history of UTIs and has had similar symptoms. She denies dysuria, hematuria, abdominal pain, vomiting, cough or cold symptoms, and syncope. Two prior urine cultures here are positive for E coli resistant to quinolones. MD elicited complaint: UTI Pertinent past history: recurrent UTIs Onset (ago): day(s) (3) Severity: moderate Consistency: constant Vaginal discharge: none Vaginal bleeding: none Exacerbating factors: none Relieving factors: none Associated symptoms: loss of appetite, shortness of breath, fever, chills and nausea Treatment prior to arrival: none Patient : No Related Data Allergies Allergy/AdvReac Type Severity Reaction Status Date / Time ginseng AdvReac Unknown Verified 08/22/21 15:20 Tetracyclines AdvReac Other Verified 08/22/21 15:20 Review of Systems Review of Systems: All systems reviewed & are unremarkable except as noted in HPI and below Constitutional: Constitutional: Reports chills and Reports fatigue Eyes: Eyes: Denies change in vision and Denies photophobia ENT: Reports nasal congestion and Reports sore throat Cardiovascular: Cardiovascular: Denies chest pain and Denies radiating jaw, neck or arm pain Respiratory: Respiratory: Denies cough and Reports dyspnea Gastrointestinal: Gastrointestinal: Denies abdominal pain, Reports nausea and Denies vomiting Genitourinary: Genitourinary: Denies hematuria, Denies nocturia, Denies dysuria and Denies flank pain Musculoskeletal: Musculoskeletal: Denies arthralgias and Denies joint swelling Integumentary/Breasts: Skin/Breast: Denies pruritus, Denies erythema and Denies rash Neurologic: Denies vertigo, Denies dizziness, Denies syncope and Denies focal weakness Hematologic/Lymphatic: Hematologic/Lymphatic: Denies easy bleeding and Denies easy bruising Allergic/Immunologic: Allergic/Immunologic: Denies lip swelling and Denies throat swelling PMF Past Medical History Medical History CLL (chronic lymphocytic leukemia) DVT (deep venous thrombosis) History of arterial occlusion Hypertension Nicotine dependence, cigarettes, uncomplicated Obesity Pyoderma gangrenosa Superficial granulomatous pyoderma Vasculitis Surgical History Surgical History History of adenoidectomy Hx of tonsillectomy Family History Family History Father COPD (chronic obstructive pulmonary disease) Social History Social History Smoking status: Current every day smoker Additional occupation/education comments: [employer] Exam Const: General: healthy appearing and alert Orientation/consciousness: patient oriented x3 Limitations: no limitations Other: moderate acute distress. Resp: Effort & Inspection: normal respiratory effort and not labored Auscultation: clear to auscultation bilaterally, no rales, no rhonchi and no wheezes Cardio: Rate: regular rate Rhythm: regular rhythm Heart sounds: no murmurs GI: GI Palp: Yes Soft to palpation, No Tenderness to palpation present (GI) and No Guarding due to palpation present (GI) Auscultation: normal bowel sounds Skin: General skin exam: normal color, no jaundice and no pallor Rashes: no rashes Neuro: General: patient oriented x3, moves all extremities, no focal motor deficits and CN's II-XI intact bilaterally Spee
[2021-08-22 15:14] VITALS: BP 135/78; PULSE 94; RESP 20; TEMP 37; O2SAT 92
[2021-08-22] MEDS: ONDANSETRON INJ 4 MG/2 ML VIAL IV PUSH (15:37)
[2021-08-22] MEDS: SODIUM CHLORIDE 0.9% IV 1,000 ML 999 ML IV CONT (15:37)
[2021-08-22 15:58] LABS: Hematocrit 41.6 % (35.0-49.0); Hemoglobin 12.7 g/dL (12.0-15.0); Mean Corpuscular HGB Conc 30.5 g/dL (32.0-36.0); Mean Corpuscular Hemoglobin 27.9 pg (27.0-31.0); Mean Corpuscular Volume 91.2 fL (78.0-102.0); Mean Platelet Volume 9.6 fl (9.2-11.8); Platelet Count Result 140 K/mm3 (150-420); Red Blood Count 4.56 M/mm3 (4.20-5.40); Red Cell Distribution Width 16.3 % (11.6-14.4)
[2021-08-22 16:01] LABS: Add Urine Microscopic? YES; Appearance Urine Clear (Clear); Bilirubin Urine Negative (Negative); Blood Urine 3+ (Negative); Color Urine Light Yellow (Yellow); Glucose Urine UA Negative (Negative); Ketones Urine Negative (Negative); Leukocyte Esterase Ur Negative (Negative); Nitrate Urine Positive (Negative); Protein Urine 3+ (Negative); Specific Grav Ur >= 1.030 (1.010-1.020); Urobilinogen Urine 0.2 mg/dL (0.2-1.0)
[2021-08-22 16:06] LABS: Bacteria Urine 4+ /hpf; Squamous Epithelial Cell Urine Rare /hpf (Few); WBC Urine 0-3 /hpf (0-3)
[2021-08-22 16:08] LABS: White Blood Count 69.4 K/mm3 (4.8-10.8)
[2021-08-22 16:13] LABS: Alanine Aminotransferase 12 U/L (14-59); Albumin Level 3.1 g/dL (3.4-5.0); Alkaline Phosphatase 112 U/L (46-116); Anion Gap 14 mmol/L (8-16); Aspartate Amino Transferase 12 U/L (15-37); Bilirubin,Total 0.4 mg/dL (0.00-1.00); Blood Urea Nitrogen 17 mg/dL (7-18); Calcium 8.4 mg/dL (8.5-10.1); Carbon Dioxide 22 mmol/L (21-32); Chloride 104 mmol/L (98-108); Estimated CRCL calculation 69 ml/min; Estimated Glomerular Filt Rate 53; Glucose 89 mg/dL (70-99); Osmolality Calculated 290 mOsm/kg (285-295); Potassium 3.8 mmol/L (3.5-5.1); Sodium 140 mmol/L (136-145); Total Protein 6.8 g/dL (6.4-8.2)
[2021-08-22 16:17] LABS: Lactic Acid Reflex 0.5 mmol/L (0.4-2.0)
[2021-08-22 16:41] LABS: Band Neutrophils Percent 0 % (0-6); Basophils Percent Manual 0 % (0-1); Eosinophils Absolute Manual 0.69 K/mm3 (0.02-0.5); Eosinophils Percent Manual 1 % (1-6); Lymphocytes Absolute Manual 53.43 K/mm3 (1.1-4.5); Lymphocytes Percent Manual 77 % (18-44); Monocytes Absolute Manual 4.16 K/mm3 (0.1-0.90); Monocytes Percent Manual 6 % (3-9); Neutrophils Percent Manual 16 % (46-73); Platelet Estimate Adequate (Adequate)
[2021-08-22 16:46] LABS: Influenza A QL RT-PCR Negative (Negative); Influenza B QL RT-PCR Negative (Negative); SARS-CoV-2 RNA PCR Negative (Negative)
[2021-08-22] MEDS: SODIUM CHLORIDE 0.9% IV 500 ML 999 ML IV CONT (17:25)
[2021-08-22 18:31] VITALS: BP 136/79; PULSE 84; RESP 20; TEMP 36.9; O2SAT 98
== END 2021-08-22 18:34 | disposition home or self-care (01) ==
PROVIDERS: Emergency Provider Emergency Medicine; PCP Family Medicine
DX: N30.00 Acute cystitis without hematuria (principal); Z20.822 Contact with and (suspected) exposure to COVID-19
CPT/HCPCS: 36415; 80053; 81001; 83605; 85025; 87040; 87077; 87086; 87088; 87186; 87502; 96361; 96365; 96375; 99283; 99284; C9803; J0696; J2405; J7030; J7040; U0003; U0005

== ENCOUNTER 2021-11-17 18:40 | Outpatient (CLI) | payer MEDICARE, OTHER, SELFPAY ==
[2021-11-17 18:53] LABS: Add Urine Microscopic? YES; Appearance Urine Clear (Clear); Bilirubin Urine Negative (Negative); Blood Urine 3+ (Negative); Color Urine Yellow (Yellow); Glucose Urine UA Negative (Negative); Ketones Urine Trace (Negative); Leukocyte Esterase Ur Negative (Negative); Nitrate Urine Negative (Negative); Protein Urine 2+ (Negative); Specific Grav Ur >= 1.030 (1.010-1.020); Urobilinogen Urine 0.2 mg/dL (0.2-1.0); pH Urine 5.5 (5.0-8.0)
[2021-11-17 19:01] LABS: Amorphous Sediment Urine Moderate; Bacteria Urine 1+ /hpf; Squamous Epithelial Cell Urine Few /hpf (Few)
== END 2021-11-17 18:41 | disposition home or self-care (01) ==
LOC: CHSLAB 18:42
PROVIDERS: PCP Family Medicine
DX: N39.0 Urinary tract infection, site not specified (principal); R35.1 Nocturia
CPT/HCPCS: 81001; 87086

== ENCOUNTER 2021-11-30 16:42 | Outpatient (CLI) | payer MEDICARE, MEDICAID, SELFPAY ==
[2021-11-30 16:56] LABS: Add Urine Microscopic? YES; Appearance Urine Clear (Clear); Bilirubin Urine Negative (Negative); Blood Urine 2+ (Negative); Color Urine Light Yellow (Yellow); Glucose Urine UA Negative (Negative); Ketones Urine Negative (Negative); Leukocyte Esterase Ur Negative (Negative); Nitrate Urine Negative (Negative); Protein Urine 2+ (Negative); Specific Grav Ur >= 1.030 (1.010-1.020); Urobilinogen Urine 0.2 mg/dL (0.2-1.0)
[2021-11-30 17:03] LABS: Bacteria Urine 2+ /hpf; RBC Urine 0-2 /hpf (0-2); Squamous Epithelial Cell Urine Few /hpf (Few)
== END 2021-11-30 16:43 | disposition home or self-care (01) ==
LOC: CHSLAB 16:45
PROVIDERS: PCP Family Medicine
DX: R31.29 Other microscopic hematuria (principal)
CPT/HCPCS: 81001; 87077; 87086; 87088; 87186

== ENCOUNTER 2021-12-20 14:37 | Outpatient (CLI) | payer MEDICARE, MEDICAID, SELFPAY ==
--- NOTE | ~2021-12-20 | CT_ITS ---
EXAMINATION: CT abdomen pelvis wo/w con DATE: 12/20/2021 15:55 INDICATION: Hematuria. Difficulty urinating. History kidney disease.. Leukemia. TECHNIQUE: Computed tomography (CT) of the abdomen and pelvis was performed without and subsequently with 100 CC Omnipaque intravenous contrast. Automated exposure control and iterative reconstruction t echnique were employed. Exam dose: 1835.18 mGy-cm total exam DLP. COMPARISON: 12/20/2021 retroperitoneal ultrasound examination 06/14/2020 CT abdomen pelvis noncontrast examination FINDINGS: Small right and moderate left pleural effusion. There is associated mild dependent bilatera l lower lobe atelectasis. There is mild discoid atelectasis or scarring at the middle lobe and mild a telectasis or scarring at the base of the lingula. Normal heart size. No pericardial or pleural effusion. The liver, gallbladder, bile ducts, pancreas and pancreatic duct are unremarkable. There is splenomeg avi, the spleen measuring up to 22 cm vertical dimension. Normal morphology of the adrenal glands. Lobularity of the renal outlines suggest bilateral chronic pyelonephritis. No renal mass lesion is ev ident Prominent extrarenal pelves and normal ureteral caliber suggests mild bilateral ureteropelvic disprop ortion. No urinary tract calculus or urinary tract obstruction is noted otherwise. Normal caliber of the abdominal aorta. There is periaortic and aortocaval and bilateral iliac and inguinal lymphadenopathy. Left periaortic lymph nodes measure up to 10.4 x 14.8 mm and 10 x 13.4 mm. Up to 2.3 x 3.4 cm left external iliac lymphadenopathy, 1.6 x 2.9 cm right external iliac lymphadenop athy. Up to 1.8 x 3 cm right and 2 x 2.8 cm left obturator lymphadenopathy. There is bilateral inguinal lymphadenopathy as well, measuring up to 1.4 x 2 cm on the left, 1.75 x 2 .7 cm and 1.4 x 2.3 cm on the right. Mild sigmoid colon diverticulosis; no CT evidence of diverticulitis. There is no evidence of obstruct ion or intraperitoneal free air. Small fat-containing umbilical hernia. Degenerative changes of the lower thoracic and lumbar spine Bilateral osteitis condensans ilii. IMPRESSION: Bilateral pleural effusions, small on the right, moderate on the left Prominent splenomegaly Periaortic, aortocaval, bilateral iliac, obturator and inguinal lymphadenopathy; history of leukemia Diverticulosis of the sigmoid colon; no evidence of diverticulitis Normal bilateral chronic pyelonephritis Probable mild bilateral ureteropelvic disproportion, associated pelviectasis Reviewed, dictated and finalized at [facility]. Reviewed, dictated and finalized at [facility]. IMPRESSION: Bilateral pleural effusions, small on the right, moderate on the l eft Prominent splenomegaly Periaortic, aortocaval, bilateral iliac, obturator and inguinal lymphadenopathy ; history of leukemia Diverticulosis of the sigmoid colon; no evidence of diverticulitis Normal bilateral chronic pyelonephritis Probable mild bilateral ureteropelvic disproportion, associated pelviectasis
--- NOTE | ~2021-12-20 | US_ITS ---
US retroperitoneal comp 12/20/2021 14:56 Procedure: Realtime transabdominal ultrasound of the kidneys and bladder. Indication: Chronic kidney disease Comparison: Ultrasound dated 01/23/2019 Findings: Renal echotexture is normal bilaterally without contour deforming mass or renal calculus. T here is mild bilateral hydronephrosis. The right kidney measures 12 cm and left kidney measures 10.4 cm. Spleen is enlarged measuring 19.6 cm. The bladder is not distended for evaluation. Impression: 1: Mild bilateral hydronephrosis. 2: Splenomegaly. Reviewed, dictated and finalized at location [facility]. Impression: 1: Mild bilateral hydronephrosis. 2: Splenomegaly.
[2021-12-20 15:17] LABS: Estimated Glomerular Filt Rate 49
== END 2021-12-20 14:38 | disposition home or self-care (01) ==
PROVIDERS: PCP Family Medicine
DX: R31.29 Other microscopic hematuria (principal); N39.0 Urinary tract infection, site not specified; N18.30 Chronic kidney disease, stage 3 unspecified
CPT/HCPCS: 74178; 76770; Q9967

== ENCOUNTER 2022-01-21 11:19 | Outpatient (CLI) | payer MEDICARE, MEDICAID, SELFPAY ==
--- NOTE | ~2022-01-21 | US_ITS ---
EXAMINATION: US venous doppler LE RT DATE: 01/21/2022 11:48 INDICATION: Right lower limb swelling. Other specified soft tissue disorders. TECHNIQUE: Grayscale ultrasound images without and with compression and Doppler ultrasound images of the right lower extremity veins were obtained. COMPARISON: None. FINDINGS: The visualized portions of right common femoral vein, profunda (deep) femoral vein, and greater saphe nous vein outflow are patent. There is thrombus in right femoral, popliteal, and posterior tibial, pe roneal, and gastrocnemius veins. There is a 4.0 x 1.6 cm right inguinal lymph node. IMPRESSION: 1. Right-sided deep vein thrombosis. 2. Right inguinal lymphadenopathy, consistent with chronic lymphocytic leukemia. Reviewed, dictated and finalized at location [facility]. IMPRESSION: 1. Right-sided deep vein thrombosis. 2. Right inguinal lymphadenopathy, consistent with chronic lymphocytic leukemia .
== END 2022-01-21 11:20 | disposition home or self-care (01) ==
LOC: CHSIMG 11:25
PROVIDERS: PCP Family Medicine; Visit Provider Nurse Practitioner Family
DX: M79.89 Other specified soft tissue disorders (principal)
CPT/HCPCS: 93971

== ENCOUNTER 2022-01-21 14:38 | Inpatient (IN) | payer MEDICARE, MEDICAID, SELFPAY ==
[2022-01-21] VITALS (16 sets, daily range): BP systolic 100–143; BP diastolic 59–79; PULSE 62–71; RESP 12–29; TEMP 35.9–36.6; O2SAT 93–98; BMI 38.7
--- NOTE | 2022-01-21 15:09 | ED.EXTPRO ---
HPI - Extremity Problem General Chief complaint: Extremity Problem,Nontraumatic Stated complaint: dvt in right leg Time Seen by Provider: 01/21/22 14:44 Source: patient Mode of arrival: ambulatory Limitations: no limitations History of Present Illness HPI Narrative: Patient is 51 years old white female referred to the emergency room by her family physician with a new diagnosis of right lower extremity deep vein thrombosis today. Patient had the venous Doppler at [facility] prior to arrival to our emergency room. Patient reports pain at the right lower extremity started 2 weeks ago after long hours of car ride. And gradually getting worse. Patient denies shortness of breath or chest pain. History of lymphocytic leukemia on watching and weight protocol. Splenomegaly. Stage III kidney disease. And a hypercoagulable status, currently on aspirin and Plavix. History of hypertension and hyperlipidemia. Related Data Home Medications Medication Instructions Recorded Confirmed cholecalciferol (vitamin D3) 1,250 1,250 mcg PO WEEKLY 08/25/21 mcg (50,000 unit) capsule Allergies Allergy/AdvReac Type Severity Reaction Status Date / Time ginseng AdvReac Unknown Verified 01/21/22 07:39 Tetracyclines AdvReac Other Verified 01/21/22 07:39 Review of Systems Review of Systems: CONSTITUTIONAL: Denies fever, chills, or sweats. EYES: Denies visual changes, redness, or discharge. ENT: Denies rhinorrhea, congestion, sore throat, or otalgia. CARDIOVASCULAR: Denies chest pain, palpitations, or edema. RESPIRATORY: Denies cough or dyspnea. GASTROINTESTINAL: Denies abdominal pain, nausea, vomiting, or diarrhea. GENITOURINARY: Denies dysuria or hematuria. SKIN: Denies rash or itching. MUSCULOSKELETAL: Denies back pain, joint pain, or myalgia. NEUROLOGIC: Denies headache, numbness, or weakness. PSYCHIATRIC: Denies anxiety or depression. [facility] Past Medical History Medical History CLL (chronic lymphocytic leukemia) DVT (deep venous thrombosis) History of arterial occlusion Hypertension Nicotine dependence, cigarettes, uncomplicated Obesity Pyoderma gangrenosa Superficial granulomatous pyoderma Vasculitis Surgical History Surgical History History of adenoidectomy Hx of tonsillectomy Family History Family History Father COPD (chronic obstructive pulmonary disease) Social History Social History Smoking status: Current every day smoker Alcohol intake: never Substance use: never Substance use type: does not use Additional occupation/education comments: [employer] Exam Narrative: General appearance: Well-developed, well-nourished Skin: Normal color Head: Normocephalic, nontraumatic Eyes: Clear conjunctiva ENT: Oropharynx normal, ears normal, nose normal Neck: Supple, nontender Chest and respiratory: Airway patent, no respiratory distress, no accessory muscle use Heart: Regular rate/rhythm Abdomen: Soft, nontender, no organomegaly, quiet bowel sounds Vascular: Normal peripheral pulses, normal capillary refill. Musculoskeletal: Right lower extremity showed diffuse swelling, tightness, tenderness below the knee. Neurologic: Alert and oriented ?3, [employer] is normal as tested, no gross motor deficit Course Course Emergency Course: Stable Consultations Consultation #1: Dr. Horowitz Date: 01/21/22 Time: 15:35 Vital Signs Vital signs: Vital Signs Pulse Rate 68 01/21/22 14:52 Respiratory Rate 18 01/21/22 14:52 Blood Press
[2022-01-21 15:36] LABS: Hematocrit 35.4 % (37.0-47.0); Mean Corpuscular HGB Conc 31.1 g/dl (32-36); Mean Corpuscular Hemoglobin 28.7 pg (26-34); Mean Corpuscular Volume 92.4 fl (80-100); Mean Platelet Volume 9.6 fl (7.4-10.4); Platelet Count Result 114 k/mm3 (150-375); Red Blood Count 3.83 M/mm3 (4.2-5.4); Red Cell Distribution Width 19.6 % (11.5-14.5); White Blood Count 49.6 K/mm3 (4.5-10.0)
[2022-01-21 15:45] LABS: Anion Gap 6 mmol/L (8-16); Blood Urea Nitrogen 23 mg/dL (7-17); Calcium 8.5 mg/dL (8.4-10.2); Carbon Dioxide 24 mmol/L (22-30); Chloride 110 mmol/L (98-107); Estimated CRCL calculation 68 ml/min; Estimated Glomerular Filt Rate 53; Glucose 98 mg/dL (65-110); INR 1.1; Potassium 4.1 mmol/L (3.4-5.0); Prothrombin Time 13.4 Seconds (11.1-14.7); Sodium 140 mmol/L (137-145)
[2022-01-21 15:46] LABS: Partial Thromboplastin Time 24.5 SECONDS (22.3-36.8)
[2022-01-21 15:57] LABS: Band Neutrophils Percent 1 % (0-6); Lymphocytes Absolute Manual 34.72 K/mm3 (1.1-4.5); Monocytes Absolute Manual 0.99 K/mm3 (0.1-0.90); Monocytes Percent Manual 2 % (3-9); Neutrophils Absolute Manual 13.88 K/mm3 (1.7-7.2); Neutrophils Percent Manual 27 % (46-73); Platelet Estimate Decreased (Adequate); Total Cells Counted 100
[2022-01-21 15:58] LABS: Anisocytosis 2+ (NORMAL); Hypochromasia 1+ (NORMAL)
--- NOTE | 2022-01-21 16:04 | PDONCCN ---
HPI - Date of Consult Date/Time: 01/21/22 16:04 Requesting Physician: Lacie Bruce MD Primary Care Provider: Ari Elmore, - Consult Narrative Reason for consult: Right lower extremity DVT Narrative: Nicole Hamilton is a 51 year old female with obesity and history of left lower extremity peripheral vascular disease with plaque formation and purplish toe discoloration in 2017 for which she received short-term heparin therapy and then was subsequently discharged home on aspirin and Plavix was subsequently added. She also has a history of right lower extremity pyoderma gangrenosum. She just came back from her 10 hour trip from [facility] 2 weeks ago and started having right lower extremity pain and swelling with some redness. She denies any chest pain and shortness of breath. Right lower extremity Doppler studies were performed that showed right-sided DVT involving common femoral vein common profound the femoral vein and greater saphenous vein. There was a thrombus in right femoral, popliteal and posterior tibial, peroneal and gastrocnemius vein. There was a 4 x 1.6 cm right inguinal lymphadenopathy. Patient also has the history of CLL diagnosed in 2018 and so far has not received any treatment. She has an oncologist at [facility]. Review of Systems - Review of Systems All systems reviewed & are unremarkable except as noted in HPI and [facility] Medical History: Medical History (Last Reviewed 01/21/22 @ 15:31 by Hanna Arvizu MD) CLL (chronic lymphocytic leukemia) DVT (deep venous thrombosis) History of arterial occlusion Hypertension Nicotine dependence, cigarettes, uncomplicated Obesity Pyoderma gangrenosa Superficial granulomatous pyoderma Vasculitis Surgical History: Surgical History (Last Reviewed 01/21/22 @ 15:31 by Hanna Arvizu MD) History of adenoidectomy Hx of tonsillectomy Family History: Family History (Last Reviewed 01/21/22 @ 15:31 by Hanna Arvizu MD) Father COPD (chronic obstructive pulmonary disease) - Social History Social History: Social History (Last Reviewed 01/21/22 @ 15:31 by Hanna Arvizu MD) Alcohol Use: Alcohol intake: never Substance Use: Substance use: never Substance use type: does not use Smoking Status: Smoking status: Current every day smoker Meds Home Medications Medication Instructions Recorded Confirmed Type atorvastatin 20 mg tablet 20 mg PO DAILY #90 tablet 12/08/20 08/22/21 Rx amlodipine 10 mg tablet See Rx Instructions .ROUTE 04/28/21 08/22/21 Rx .COMPLEX #90 tablet lisinopril 40 mg tablet See Rx Instructions .ROUTE 04/28/21 08/22/21 Rx .COMPLEX #90 tablet metoprolol tartrate 25 mg tablet See Rx Instructions .ROUTE 04/28/21 08/22/21 Rx .COMPLEX #60 tablet clopidogrel 75 mg tablet See Rx Instructions .ROUTE 05/13/21 08/22/21 Rx .COMPLEX #30 tablet ondansetron 4 mg PO Q6H PRN #10 tablet 08/22/21 Rx cholecalciferol (vitamin D3) 1,250 1,250 mcg PO WEEKLY 08/25/21 History mcg (50,000 unit) capsule allopurinol 100 mg tablet See Rx Instructions .ROUTE 08/30/21 Rx .COMPLEX #90 tablet Allergies Allergy/AdvReac Type Severity Reaction Status Date / Time ginseng AdvReac Unknown Verified 01/21/22 07:39 Tetracyclines AdvReac Other Verified 01/21/22 07:39 Results - Labs CBC & Chem 7: 01/21/22 15:29 01/21/22 15:29 Labs: Short CBC 01/21/22 Range/Units 15:29 WBC 49.6 H (4.5-10.0) K/mm3 Hgb 11.0 L (12.0-15.0) g/dL Hct 35.4 L (37.0-47.0) % Plt Count 114 L (150-375) k/mm3 BMP 01/21/22 15:29 Sodium 140 Potassium 4.1 Chloride 110 H Carbon Dioxide 24 BUN 23 H Creatinine 1.10 H Glucose 98 Calcium 8.5 Assessment and Plan - Additional Plan Provoked right lower extremity DVT. Patient is a 51-year-old obese female with history of right lower extremity pyoderma gangrenosum as well as history of left sided p
[2022-01-21] MEDS: HEPARIN SODIUM 5,000 UNITS/ML VIAL 6000 UNITS IV PUSH (16:12)
[2022-01-21] MEDS: HEPARIN SOD/D5W 100 UNITS/ML 25,000 UNITS/250 ML BAG 14 UNITS IV CONT (16:12)
--- NOTE | 2022-01-21 17:05 | ADMGEN ---
This patient, Nicole Hamilton, was admitted to Medical Room 251-. Patient/family oriented to hospital policies and general routines including ID bracelet, bed and alarms, visiting hours, pain management, procedures, bathroom and other care routines, personal items, smoking policy, room service/diet, and visiting hours. Information on how to activate the Rapid Response Team has been discussed. Patient/Family are encouraged to report perceived risks to care and to ask questions if they do not understand what they are told or what they should do.
--- NOTE | 2022-01-21 19:15 | PM.IMHP ---
H&P: HPI History of Present Illness Date/Time: 01/21/22 19:15 Chief Complaint: Right lower extremity swelling Narrative: This is a 51-year-old female with past medical history significant for CLL, gout, dyslipidemia, hypertension, tobacco dependence, obesity, pyoderma gangrenosum. Patient presented to the emergency room due to right lower extremity swelling and pain for several days now after long car trip from [place]. Patient denies any fevers any rigors any chills any cough, shortness of breath, chest pain, dizziness, lightheadedness ,syncope or near syncope ,no palpitations. Patient was found to have acute DVT. Patient has been admitted for further evaluation, management and treatment. Review of Systems Review of Systems: Right lower extremity swelling and pain upon bearing weight and touching Constitutional: Constitutional: Denies chills, Denies fatigue, Denies fever(s), Denies malaise, Denies night sweats and Denies weakness Eyes: Eyes: Denies change in vision ENT: Denies dysphagia, Denies vertigo, Denies dizziness, Denies nasal congestion, Denies nasal discharge, Denies nasal obstruction and Denies odynophagia Cardiovascular: Cardiovascular: Denies chest pain, Denies syncope, Denies pedal edema, Denies irregular heart rhythm, Denies leg ulcers, Reports leg edema, Denies lightheadedness, Denies radiating jaw, neck or arm pain, Denies palpitations, Denies dyspnea, Denies dyspnea on exertion and Denies orthopnea Respiratory: Respiratory: Denies cough, Denies excessive phlegm production, Denies dyspnea and Denies wheezing Gastrointestinal: Gastrointestinal: Denies abdominal pain, Denies dyspepsia, Denies heartburn, Denies diarrhea, Denies nausea and Denies vomiting Genitourinary: Genitourinary: Denies dysuria Musculoskeletal: Musculoskeletal: Denies arthralgias and Denies joint swelling Integumentary/Breasts: Skin/Breast: Reports swelling and Reports skin swelling Comments: Right lower extremity Neurologic: Denies dizziness, Denies focal weakness and Denies Sensory deficit (Neuro) Psychiatric: Psychiatric: Reports no additional psychiatric complaints and Reports as per HPI Endocrine: Endocrine: Denies cold intolerance, Denies heat intolerance, Denies polyphagia, Denies polydipsia and Denies palpitations Hematologic/Lymphatic: Comments: Thrombophlebitis Allergic/Immunologic: Allergic/Immunologic: Reports no additional allergic/immunologic complaints and Reports as per [facility] Past Medical History Medical History CLL (chronic lymphocytic leukemia) DVT (deep venous thrombosis) History of arterial occlusion Hypertension Nicotine dependence, cigarettes, uncomplicated Obesity Pyoderma gangrenosa Superficial granulomatous pyoderma Vasculitis Surgical History Surgical History History of adenoidectomy Hx of tonsillectomy Family History Family History Father COPD (chronic obstructive pulmonary disease) Social History Social History Smoking packs per day: 0.5 Smoking cigarettes per day: 10.0 Years smoked: 35 Smoking pack-years: 17.50 Smoking status: Current every day smoker Alcohol intake: never Substance use: never Substance use type: does not use Additional occupation/education comments: [employer] Spiritual care concerns: No Meds Home Medications and Allergies Home Medications Medication Instructions Recorded Confirmed Type atorvastatin 20 mg tablet 20 mg PO DAILY #90 tablet 12/08/20 01/21/22 Rx allopurinol 100 mg PO DAILY 01/21/22 01/21/22 History amlodipine 10 mg PO DAILY 01/21/22 01/21/22 History cholecalciferol (vitamin D3) 50 mcg PO DAILY 01/21/22 01/21/22 History [Vitamin D3] clopidogrel 75 mg PO DAILY 01/21/22 01/21/22 History lisinopril 40 mg PO DAILY 01/07
[2022-01-21 22:05] LABS: Partial Thromboplastin Time 55.7 SECONDS (22.3-36.8)
[2022-01-21] MEDS: HEPARIN SODIUM 5,000 UNITS/ML VIAL 3000 UNITS IV PUSH (22:19)
[2022-01-22 03:17] VITALS: BP 111/47; PULSE 65; RESP 17; TEMP 35.9; O2SAT 96
[2022-01-22 04:37] LABS: Hematocrit 35.4 % (37.0-47.0); Hemoglobin 10.9 g/dL (12.0-15.0); Mean Corpuscular HGB Conc 30.8 g/dl (32-36); Mean Corpuscular Hemoglobin 28.3 pg (26-34); Mean Corpuscular Volume 91.9 fl (80-100); Mean Platelet Volume 9.6 fl (7.4-10.4); Platelet Count Result 102 k/mm3 (150-375); Red Blood Count 3.85 M/mm3 (4.2-5.4); Red Cell Distribution Width 19.3 % (11.5-14.5)
[2022-01-22 04:49] LABS: Partial Thromboplastin Time 64.1 SECONDS (22.3-36.8)
[2022-01-22 04:50] LABS: White Blood Count 57.1 K/mm3 (4.5-10.0)
[2022-01-22] MEDS: HEPARIN SODIUM 5,000 UNITS/ML VIAL 3000 UNITS IV PUSH (04:59)
[2022-01-22 05:01] LABS: Eosinophils Absolute Manual 0.57 K/mm3 (0.02-0.5); Eosinophils Percent Manual 1 % (0-4); Lymphocytes Absolute Manual 46.82 K/mm3 (1.1-4.5); Lymphocytes Percent Manual 82 % (18-44); Monocytes Absolute Manual 1.14 K/mm3 (0.1-0.90); Monocytes Percent Manual 2 % (3-9); Neutrophils Percent Manual 15 % (46-73); Total Cells Counted 100
[2022-01-22 05:02] LABS: Platelet Estimate Decreased (Adequate); Smudge Cells PRESENT
[2022-01-22 05:13] LABS: Anisocytosis 2+ (NORMAL)
[2022-01-22] MEDS: HEPARIN SOD/D5W 100 UNITS/ML 25,000 UNITS/250 ML BAG 18 UNITS IV CONT (07:59)
[2022-01-22] MEDS: CHOLECALCIFEROL 1,000 UNITS TABLET 2000 UNITS PO (08:04)
[2022-01-22] MEDS: ATORVASTATIN 20 MG TABLET PO (08:05)
[2022-01-22] MEDS: METOPROLOL TARTRATE 25 MG TABLET PO (08:05)
[2022-01-22] MEDS: CLOPIDOGREL BISULFATE 75 MG TABLET PO (08:05)
[2022-01-22] MEDS: amLODIPine BESYLATE 5 MG TABLET 10 MG PO (08:05)
[2022-01-22] MEDS: lisinopriL 20 MG TABLET 40 MG PO (08:05)
[2022-01-22] MEDS: allopurinoL 100 MG TABLET PO (08:05)
[2022-01-22 09:23] VITALS: O2SAT 96
--- NOTE | 2022-01-22 10:08 | PM.DS ---
DS: Admitting Diagnosis Discharge Date 01/22/2022 Admitting Diagnosis DVT, right LE DS: Discharge Diagnosis Discharge Diagnosis (1) Deep vein thrombosis: Qualifiers: Affected thrombotic vein of extremity: femoral Chronicity: acute DVT location: lower extremity Laterality: right Qualified Code(s): I82.411 - Acute embolism and thrombosis of right femoral vein Code(s): I82.409 - Acute embolism and thrombosis of unspecified deep veins of unspecified lower extremity Status: Acute Assessment and Plan: Patient reports a 2 week history of right lower extremity and posterior knee pain following a [address] from [place]. She is taking aspirin and Plavix daily for the past week. She initially went to her primary care office who sent her to the emergency room. Lower extremity venous duplex of the right leg showed right-sided DVT involving the femoral, popliteal, posterior tibial, peroneal, and gastrocnemius vein. Upon admission, the right calf was erythematous, swollen, tender to palpation, and patient reports her toes were purple and discolored. She was started on IV heparin upon admission, and upon exam this morning the right calf was no longer swollen, without erythema, warmth, tenderness, and with normal capillary refill. Patient also endorses resolution of pain, and she is now able to ambulate. She denies chest pain, shortness a breath, new cough, abdominal pain, nausea, fevers, chills, dizziness, or vomiting. She is hemodynamically stable, and has a good appetite and oral intake. Hematology, Dr. Horowitz, was consulted and agreed with inpatient IV heparin therapy. He further advised patient be discharged with Eliquis 10 mg b.i.d. for 1 week and then 5 mg b.i.d. for an additional 3 weeks. He requests follow-up in his office in 4 weeks, repeat Doppler studies in 3 months, and hypercoagulable workup after completion of Eliquis therapy. This patient at her Eliquis prescription were coordinated with Beatrice from the Care coordination Team. Initiate Eliquis 10 mg twice daily for 1 week, and then continue with 5 mg twice daily for an additional 3 weeks. Follow up with Dr. Horowitz in 4 weeks. Repeat lower extremity venous Dopplers in 3 months. Discontinue aspirin upon discharge, continue clopidogrel (Plavix). (2) CLL (chronic lymphocytic leukemia): Code(s): C91.10 - Chronic lymphocytic leukemia of B-cell type not having achieved remission Status: Acute Assessment and Plan: Patient has chronic lymphocytic leukemia stage 0, diagnosed in May 2018, and she follows with Dr. PORTER at [facility]. She is not undergoing any active treatment at this time. Her leukocytes were 57.1 at this admission which is normal for her. No other evidence of infection (fevers, chills, nausea, vomiting, dizziness). Advised patient to follow-up in outpatient setting with her stapler machine. (3) Hypertension: Qualifiers: Hypertension type: unspecified Qualified Code(s): I10 - Essential (primary) hypertension Code(s): I10 - Essential (primary) hypertension Status: Acute Assessment and Plan: Patient is on amlodipine 10 mg daily, lisinopril 40 mg daily, metoprolol tartrate 25 mg daily. We have continued these medications during her stay. She has been normotensive. Continue taking your blood pressure medicines as prescribed upon discharge. 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 Her creatinine is 1.1 during this admission, which is baseline for her. She denies any urinary changes, abdominal pain. Continue to follow-up with your high lift operator after discharge. DS: Summary Hospital Course Reason for hospitalization: Right-sided DVT.
[2022-01-22 11:25] LABS: Partial Thromboplastin Time > 200.0 SECONDS (22.3-36.8)
== END 2022-01-22 12:25 | disposition home or self-care (01) | DRG 300 ==
LOC: ANHED 15:35 → ANH2MED 15:58
PROVIDERS: Internal Medicine; Admitting Provider Family Medicine; Emergency Provider Emergency Medicine; PCP Family Medicine; Visit Provider Internal Medicine
DX: I82.411 Acute embolism and thrombosis of right femoral vein (principal); C91.10 Chronic lymphocytic leukemia of B-cell type not having achieved remission; Z86.718 Personal history of other venous thrombosis and embolism; E66.9 Obesity, unspecified; Z79.899 Other long term (current) drug therapy; I73.9 Peripheral vascular disease, unspecified; F17.210 Nicotine dependence, cigarettes, uncomplicated; M10.9 Gout, unspecified; I82.431 Acute embolism and thrombosis of right popliteal vein; I82.441 Acute embolism and thrombosis of right tibial vein; I82.461 Acute embolism and thrombosis of right calf muscular vein; N18.30 Chronic kidney disease, stage 3 unspecified; I12.9 Hypertensive chronic kidney disease with stage 1 through stage 4 chronic kidney disease, or unspecified chronic kidney disease
CPT/HCPCS: 36415; 80048; 85025; 85610; 85730; 99285; A9270; J1644

== ENCOUNTER 2022-02-07 12:39 | Outpatient (CLI) | payer MEDICARE, MEDICAID, SELFPAY ==
--- NOTE | ~2022-02-07 | NM_ITS ---
EXAMINATION: TR ritchie renal scan DATE: 02/07/2022 14:15 INDICATION: Extrusion stress incontinence presenting with frequent urinary tract infections TECHNIQUE: 8.2 mCi Tc-99m MAG3 was administered IV. 40 mg furosemide was administered IV immediately afterward. The patient was scanned in the supine position. A posterior abdominal radionuclide angiog roopa was obtained. A subsequent time course of static images of the kidneys, ureters, and bladder was obtained. COMPARISON: None FINDINGS: The posterior abdominal radionuclide angiogram and sequential static images show normal size, positio n, and morphology of the kidneys. Peak renal parenchymal uptake was 5.5 min in left kidney and 5.5 mi n in right kidney (normal peak 3-5 minutes). The relative early renal uptake was 34% on the left and 66% on the right (<40% is abnormal). No abnormalities of the ureters or bladder are seen. T1/2 for clearance of activity from the left kidney and proximal collecting system was 10 minutes. T1/2 for clearance of activity from the right kidney and proximal collecting system was 16 minutes. Notes on interpretation: T1/2 <10 minutes is normal, 10-15 minutes is low grade obstruction of questi onable clinical significance, 15-20 minutes is partial obstruction that is likely clinically signific ant, >20 minutes is high grade obstruction. Note that false positives may be seen with supine positio merissa, dehydration, severely dilated nonobstructed kidney, atonic collecting system, poor renal functi on, and chronic furosemide use. IMPRESSION: 1. Asymmetric kidney function with left kidney comprising 34% and the right kidney 66% of total reji l function 2. Mildly delayed activity clearance from the right kidney consistent with partial obstruction that may be clinically significant. Reviewed, dictated and finalized at location A. IMPRESSION: 1. Asymmetric kidney function with left kidney comprising 34% and the right ki dney 66% of total renal function 2. Mildly delayed activity clearance from the right kidney consistent with par tial obstruction that may be clinically significant.
== END 2022-02-07 12:40 | disposition home or self-care (01) ==
LOC: CHSIMG 12:41
PROVIDERS: PCP Family Medicine
DX: N39.0 Urinary tract infection, site not specified (principal); N39.46 Mixed incontinence
CPT/HCPCS: 78708; A9562; J1940

== ENCOUNTER 2022-04-01 10:55 | Outpatient (CLI) | payer MEDICARE, MEDICAID, SELFPAY ==
--- NOTE | ~2022-04-01 | US_ITS ---
EXAMINATION: US retroperitoneal comp DATE: 04/01/2022 11:49 INDICATION: Stage III chronic kidney disease TECHNIQUE: Multiple ultrasound grayscale images of the kidneys were obtained. COMPARISON: 12/20/2021 FINDINGS: The right kidney measures 11.8 x 4.9 x 5.8 cm. The left kidney measures 10.5 x 3.5 x 3.8 cm. The kidn eys demonstrate normal echogenicity. Mild bilateral hydronephrosis which remains unchanged post voidi ng. There is no hydronephrosis in either kidney. No stones identified. The bladder is normal with 29 mm post void cochlea bladder volume. Right-sided ureteral jet but no left-sided ureteral jets visual ized on color Doppler. Splenomegaly measuring 21.1 cm in length. IMPRESSION: 1. Persistent mild bilateral hydronephrosis. 2. Splenomegaly. Reviewed, dictated and finalized at location B.
== END 2022-04-01 10:56 | disposition home or self-care (01) ==
LOC: CHSIMG 10:56
PROVIDERS: PCP Family Medicine
DX: N18.30 Chronic kidney disease, stage 3 unspecified (principal)
CPT/HCPCS: 76770

== ENCOUNTER 2022-04-25 13:46 | Outpatient (CLI) | payer MEDICARE, MEDICAID, SELFPAY ==
--- NOTE | ~2022-04-25 | CT_ITS ---
EXAMINATION: CT chest abdomen pelvis w con DATE: 04/25/2022 14:35 INDICATION: Chronic lymphocytic leukemia TECHNIQUE: Computed tomography (CT) of the chest, abdomen, and pelvis was performed with 100 CC Omnip aque 350 intravenous contrast. Automated exposure control and iterative reconstruction technique were employed. Exam dose: 1892.50 mGy-cm total exam DLP. COMPARISON: 12/20/2021 CT abdomen pelvis 10/18/2020 2 view chest FINDINGS: CHEST CT: There are several focal areas of mild infiltrate, atelectasis or scarring, in the posterior left apic al area, left upper lobe, superior lateral aspect of the superior segment of the right lower lobe and posterolateral middle lobe. Slight dependent atelectasis at the lower lobes. Small left pleural effusion. No right pleural effusi on. There is bilateral axillary lymphadenopathy, superior mediastinal, prevascular, aortopulmonary window , right paratracheal, precarinal, subcarinal and lesser bilateral hilar lymphadenopathy. Normal heart size. Thoracic aortic calcification. No thoracic aortic aneurysm or dissection. Normal heart size. No pericardial effusion. ABDOMEN/PELVIS CT: There is splenomegaly, spleen measuring up to 23 cm vertical dimension. No hepatic, splenic, pancreatic or adrenal space-occupying mass lesion is detected. No renal mass lesion. Lobular renal outlines may be due to persistent lobation versus chronic p yelonephritis. No urinary tract calculus or hydroureteronephrosis. The urinary bladder, uterus and adnexal areas are unremarkable. Normal caliber of the abdominal aorta. There is gastrohepatic and portal lymphadenopathy. There are shotty periaortic and aortocaval lymph nodes, the largest periaortic node measuring 11 x 14 .7 mm, the largest aortocaval node approximately 8.2 x 12 mm. There is more prominent bilateral iliac and inguinal lymphadenopathy. There is atherosclerotic calcification but normal caliber of the abdominal aorta. No bowel obstruction or intraperitoneal free air. Small fat-containing umbilical hernia. Diffuse idiopathic skeletal hyperostosis of the thoracic spine. Moderately severe degenerative disc disease and posterior spurring at L5-S1, moderate degenerative di sc disease and prominent posterior spurring at L4-5. Bilateral osteitis condensans ilii. Bilateral hip osteoarthritis. No suspicious osteolytic or osteosclerotic lesions IMPRESSION: Bilateral axillary lymphadenopathy, superior mediastinal, prevascular, aortopulmonary wi ndow, right paratracheal, precarinal, subcarinal and lesser bilateral hilar lymphadenopathy Prominent splenomegaly Gastrohepatic and portal lymphadenopathy Shotty periaortic and aortocaval lymph nodes; more prominent bilateral iliac and inguinal lymphadenop athy There is increased splenomegaly, gastrohepatic and portal lymphadenopathy and increased periaortic, a ortocaval and increased prominence of bilateral iliac and inguinal lymphadenopathy since 06/14/2020 Reviewed, dictated and finalized at [facility]. Reviewed, dictated and finalized at [facility]. IMPRESSION: Bilateral axillary lymphadenopathy, superior mediastinal, prevascu lar, aortopulmonary window, right paratracheal, precarinal, subcarinal and less er bilateral hilar lymphadenopathy Prominent splenomegaly Gastrohepatic and portal lymphadenopathy Shotty periaortic and aortocaval lymph nodes; more prominent bilateral iliac an d inguinal lymphadenopathy There is increased splenomegaly, gastrohepatic and portal lymphadenopathy and i ncreased periaortic, aortocaval and increased prominence of bilateral iliac and inguinal lymphadenopathy since 06/14/2020
== END 2022-04-25 13:47 | disposition home or self-care (01) ==
PROVIDERS: PCP Family Medicine; Visit Provider Family Medicine
DX: C91.10 Chronic lymphocytic leukemia of B-cell type not having achieved remission (principal)
CPT/HCPCS: 71260; 74177; Q9967

== ENCOUNTER 2022-05-30 16:38 | Outpatient (CLI) | payer MEDICARE, SELFPAY ==
[2022-05-30 16:55] LABS: Add Urine Microscopic? YES; Appearance Urine Clear (Clear); Bilirubin Urine Negative (Negative); Blood Urine 2+ (Negative); Color Urine Light Yellow (Yellow); Glucose Urine UA Negative (Negative); Ketones Urine Negative (Negative); Leukocyte Esterase Ur Negative (Negative); Nitrate Urine Negative (Negative); Protein Urine 1+ (Negative); Specific Grav Ur 1.025 (1.010-1.020); Urobilinogen Urine 0.2 mg/dL (0.2-1.0)
[2022-05-30 17:08] LABS: Bacteria Urine 2+ /hpf; Squamous Epithelial Cell Urine Moderate /hpf (Few); WBC Urine None seen /hpf (0-3)
== END 2022-05-30 16:39 | disposition home or self-care (01) ==
LOC: CHSLAB 16:43
PROVIDERS: PCP Family Medicine
DX: N39.0 Urinary tract infection, site not specified (principal); R31.29 Other microscopic hematuria
CPT/HCPCS: 81001; 87086

== ENCOUNTER 2022-09-19 14:20 | Outpatient (CLI) | payer MEDICARE, SELFPAY ==
[2022-09-19 15:26] LABS: Albumin Level 3.5 g/dL (3.4-5.0); Anion Gap 8 mmol/L (8-16); Blood Urea Nitrogen 17 mg/dL (7-18); Calcium 8.7 mg/dL (8.5-10.1); Carbon Dioxide 28 mmol/L (21-32); Chloride 106 mmol/L (98-108); Estimated Glomerular Filt Rate 49; Glucose 88 mg/dL (70-99); Osmolality Calculated 294 mOsm/kg (285-295); Phosphorus 4.2 mg/dL (2.6-4.7); Potassium 4.3 mmol/L (3.5-5.1); Sodium 142 mmol/L (136-145)
[2022-09-19 15:51] LABS: Creatinine Urine 433.47 mg/dL (40-278); MALB Creatinine Ratio 15.3 mg/g (0-30); Microalbumin Urine Random 66.4 mg/L
== END 2022-09-19 14:21 | disposition home or self-care (01) ==
LOC: CHSLAB 14:23
PROVIDERS: PCP Family Medicine
DX: N18.30 Chronic kidney disease, stage 3 unspecified (principal)
CPT/HCPCS: 36415; 80069; 82043

== ENCOUNTER 2022-12-13 12:22 | Emergency (ER) | payer MEDICARE, MEDICAID, SELFPAY ==
[2022-12-13 12:21] VITALS: BP 148/85; PULSE 82; RESP 18; TEMP 36.6; O2SAT 98
--- NOTE | 2022-12-13 12:44 | ED.FEMALEGU ---
HPI - Female Genitourinary General Chief complaint: Vaginal Bleeding Stated complaint: UTI Time Seen by Provider: 12/13/22 12:32 History of Present Illness HPI Narrative: This is a 52-year-old female with past medical history of CLL, vaginal bleeding followed by gynecology, DVT on Eliquis, who presents to the emergency department feeling off and with concerns of vaginal bleeding. Patient states she had abnormal vaginal bleeding since beginning chemotherapy infusions for CLL (her final was approximately 3 weeks ago). She states she was seen by her bid analyst 1 week ago; and endometrial biopsy was reported as normal and she was started on prednisone. Despite this, she continued to pass clots. 3 days ago she stopped taking her Eliquis and notes her vaginal bleeding has significantly improved. Overall she complains of malaise and general fatigue. She states this feels similar to previous episodes of UTI. She has no other complaints. Related Data Home Medications Medication Instructions Recorded Confirmed ondansetron 8 mg disintegrating 8 mg PO Q8H PRN Nausea 12/13/22 12/13/22 tablet prochlorperazine maleate 10 mg 10 mg PO Q6H PRN Nausea 12/13/22 12/13/22 tablet (Compazine) progesterone micronized 200 mg 200 mg PO QHS 12/13/22 12/13/22 capsule Allergies Allergy/AdvReac Type Severity Reaction Status Date / Time gentian jake Allergy Rash Verified 12/13/22 12:40 Tetracyclines AdvReac Other Verified 12/13/22 12:40 Review of Systems Review of Systems: CONSTITUTIONAL: Fatigue denies fever, chills, or sweats. EYES: Denies visual changes, redness, or discharge. ENT: Denies rhinorrhea, congestion, sore throat, or otalgia. CARDIOVASCULAR: Denies chest pain, palpitations, or edema. RESPIRATORY: Denies cough or dyspnea. GASTROINTESTINAL: Denies abdominal pain, nausea, vomiting, or diarrhea. GENITOURINARY: Vaginal bleeding denies dysuria or hematuria. SKIN: Denies rash or itching. MUSCULOSKELETAL: Denies back pain, joint pain, or myalgia. NEUROLOGIC: Denies headache, numbness, dizziness, or weakness. PSYCHIATRIC: Denies anxiety or depression. [facility] Past Medical History Medical History (Updated 12/13/22 @ 14:21 by Peewee Regalado MD) CLL (chronic lymphocytic leukemia) DVT (deep venous thrombosis) History of arterial occlusion History of endometrial biopsy Hypertension Nicotine dependence, cigarettes, uncomplicated Obesity Pyoderma gangrenosa Superficial granulomatous pyoderma Vasculitis Surgical History Surgical History History of adenoidectomy Hx of tonsillectomy Family History Family History Father COPD (chronic obstructive pulmonary disease) Social History Social History Smoking packs per day: 0.5 Smoking cigarettes per day: 10.0 Years smoked: 35 Smoking pack-years: 17.50 Smoking status: Current every day smoker Alcohol intake: never Substance use: never Substance use type: does not use Occupation/Education: occupation Additional occupation/education comments: [employer] Spiritual care concerns: No Exam Narrative: GENERAL: Well-developed, well-nourished, and in no acute distress. HEAD: Normocephalic, atraumatic. EYES: PERRLA and EOMI. Pale conjunctiva bilaterally ENT: Nares clear, no rhinorrhea or epistaxis. Mucous membranes moist. Oropharynx without tonsillar hypertrophy exudate or other lesions. NECK: Supple. No adenopathy or masses. No carotid bruits or JVD CHEST: Clear to auscultation. No respiratory distress. No wheezes rales or rhonchi HEART: Regular rate and rhythm. No murmur heard. Normal peripheral pulses. ABDOMEN: Soft, nontender, nondistended, normal active bowel sounds. EXTREMITIES: Normal range of motion. No edema. SKIN: Warm, dry, no rash. NEURO: No focal deficits. Alert and or
[2022-12-13 13:00] LABS: Basophils Absolute Auto 0.04 K/mm3 (0.00-0.10); Basophils Percent Auto 0.3 % (0.0-1.0); Eosinophils Percent Auto 0.8 % (1.0-6.0); Hematocrit 24.2 % (35.0-49.0); Hemoglobin 7.4 g/dL (12.0-15.0); Immature Granulocyte Absolute 0.07 K/mm3 (0.00-0.00); Immature Granulocyte Percent A 0.6 % (0.0-0.0); Lymphocytes Absolute Auto 1.83 K/mm3 (1.10-4.50); Lymphocytes Percent Auto 14.8 % (18.0-42.0); Mean Corpuscular HGB Conc 30.6 g/dL (32.0-36.0); Mean Corpuscular Hemoglobin 26.1 pg (27.0-31.0); Mean Corpuscular Volume 85.2 fL (78.0-102.0); Mean Platelet Volume 8.8 fl (9.2-11.8); Monocytes Percent Auto 6.5 % (2.0-11.0); Neutrophils Absolute Auto 9.5 K/mm3 (1.7-7.2); Nucleated Red Blood Cells Absolute Auto 0.02 K/mm3 (0.00-0.00); Nucleated Red Blood Cells Perc 0.2 % (0-0.0); Platelet Count Result 262 K/mm3 (150-420); Red Blood Count 2.84 M/mm3 (4.20-5.40); Red Cell Distribution Width 16.4 % (11.6-14.4); White Blood Count 12.3 K/mm3 (4.8-10.8)
[2022-12-13 13:18] LABS: Alanine Aminotransferase 22 U/L (14-59); Albumin Level 3.3 g/dL (3.4-5.0); Alkaline Phosphatase 99 U/L (46-116); Anion Gap 10 mmol/L (8-16); Aspartate Amino Transferase 15 U/L (15-37); Bilirubin,Total 0.3 mg/dL (0.00-1.00); Blood Urea Nitrogen 20 mg/dL (7-18); Calcium 7.4 mg/dL (8.5-10.1); Carbon Dioxide 26 mmol/L (21-32); Chloride 106 mmol/L (98-108); Estimated CRCL calculation 73 ml/min; Estimated Glomerular Filt Rate 53; Glucose 98 mg/dL (70-99); Osmolality Calculated 296 mOsm/kg (285-295); Sodium 142 mmol/L (136-145)
[2022-12-13 13:20] LABS: Appearance Urine Clear (Clear); Bilirubin Urine Negative (Negative); Blood Urine 3+ (Negative); Color Urine Light Yellow (Yellow); Glucose Urine UA Negative (Negative); Ketones Urine Negative (Negative); Leukocyte Esterase Ur Negative LEU/UL (Negative); Nitrate Urine Negative (Negative); Protein Urine 1+ (Negative); Specific Grav Ur 1.025 (1.010-1.020); Urobilinogen Urine 0.2 mg/dL (0.2-1.0); pH Urine 5.5 (5.0-8.0)
[2022-12-13 13:26] LABS: Add Urine Microscopic? YES; Bacteria Urine 1+ /hpf; Squamous Epithelial Cell Urine Few /hpf (Few); WBC Urine None seen /hpf (0-3)
[2022-12-13 14:14] VITALS: BP 112/63; PULSE 67; RESP 18; O2SAT 98
== END 2022-12-13 14:25 | disposition home or self-care (01) ==
PROVIDERS: Emergency Provider Preventive Medicine Aerospace Medicine; PCP Family Medicine
DX: N93.9 Abnormal uterine and vaginal bleeding, unspecified (principal); D64.9 Anemia, unspecified; C91.10 Chronic lymphocytic leukemia of B-cell type not having achieved remission; I10 Essential (primary) hypertension; F17.210 Nicotine dependence, cigarettes, uncomplicated; Z86.718 Personal history of other venous thrombosis and embolism
CPT/HCPCS: 36415; 80053; 81001; 85025; 99283

== ENCOUNTER 2022-12-16 18:36 | Observation (INO) | payer MEDICARE, MEDICAID, SELFPAY ==
--- NOTE | 2022-12-16 18:37 | ADMGEN ---
This patient, Nicole Hamilton, was admitted to Medical Room 249-01. Patient/family oriented to hospital policies and general routines including ID bracelet, bed and alarms, visiting hours, pain management, procedures, bathroom and other care routines, personal items, smoking policy, room service/diet, and visiting hours. Information on how to activate the Rapid Response Team has been discussed. Patient/Family are encouraged to report perceived risks to care and to ask questions if they do not understand what they are told or what they should do.
[2022-12-16 18:53] VITALS: BP 119/67; PULSE 94; RESP 16; TEMP 36.4; O2SAT 100
[2022-12-16 18:54] VITALS: BP 119/67; PULSE 94; RESP 16; TEMP 36.4; O2SAT 100
[2022-12-16] MEDS: ESTROGENS, CONJUGATED 25 MG/5 ML VIAL IV PUSH (20:03)
[2022-12-16] MEDS: APIXABAN 5 MG TABLET PO (20:15)
[2022-12-16 20:41] LABS: Basophils Percent Auto 0.3 % (0.2-1.2); Eosinophils Absolute Auto 0.1 K/mm3 (0-0.3); Eosinophils Percent Auto 0.7 % (0-4.4); Immature Granulocyte Absolute 0.03 K/mm3 (0.00-0.031); Immature Granulocyte Percent A 0.3 % (0-0.5); Lymphocytes Absolute Auto 1.53 K/mm3 (0.9-3.2); Lymphocytes Percent Auto 14.7 % (18.3-44.2); Mean Corpuscular HGB Conc 29.7 g/dl (32-36); Mean Corpuscular Hemoglobin 25.4 pg (26-34); Mean Corpuscular Volume 85.6 fl (80-100); Monocytes Absolute Auto 0.6 K/mm3 (0.1-0.6); Monocytes Percent Auto 5.9 % (2.6-8.5); Neutrophils Absolute Auto 8.1 K/mm3 (1.3-6.7); Neutrophils Percent Auto 78.1 % (45.5-73.1); Platelet Count Result 254 k/mm3 (150-375); Red Blood Count 2.36 M/mm3 (4.2-5.4); Red Cell Distribution Width 16.4 % (11.5-14.5); White Blood Count 10.4 K/mm3 (4.5-10.0)
[2022-12-16 20:47] LABS: Hematocrit 20.2 % (37.0-47.0)
[2022-12-16 21:13] LABS: Platelet Estimate Adequate (Adequate); Schistocytes None Seen (NORMAL)
[2022-12-16 21:14] LABS: Anisocytosis 2+ (NORMAL); Hypochromasia 1+ (NORMAL)
[2022-12-16 22:00] VITALS: BP 109/53; PULSE 85; RESP 17; TEMP 36.6; O2SAT 100
[2022-12-16 22:56] VITALS: BP 119/63; PULSE 83; RESP 18; TEMP 37.2; O2SAT 100
[2022-12-16 23:16] VITALS: BP 100/63; PULSE 82; RESP 18; TEMP 37; O2SAT 99
[2022-12-17] VITALS (13 sets, daily range): BP systolic 111–135; BP diastolic 51–75; PULSE 74–83; RESP 16–18; TEMP 36–37.6; O2SAT 99–100
--- NOTE | 2022-12-17 02:11 | PC.NURSE ---
After first unit of blood transfused i attempted to end transfusion in computer. The system would not let me end the blood instead it looked as if I had not verified the blood and it had not been transfused. Charge nurse Connie was my verifying witness when I started the blood at 2300. I had her look at the error in the computer. We rescanned the pt and blood and did the verification process again. The transfusion started at 2300 and ended at 0200.
[2022-12-17 05:35] LABS: Hematocrit 27.1 % (37.0-47.0); Hemoglobin 8.4 g/dL (12.0-15.0); Mean Corpuscular Hemoglobin 26.8 pg (26-34); Mean Corpuscular Volume 86.3 fl (80-100); Mean Platelet Volume 9.3 fl (7.4-10.4); Platelet Count Result 205 k/mm3 (150-375); Red Blood Count 3.14 M/mm3 (4.2-5.4); Red Cell Distribution Width 16.1 % (11.5-14.5); White Blood Count 10.7 K/mm3 (4.5-10.0)
[2022-12-17] MEDS: APIXABAN 5 MG TABLET PO (09:05)
[2022-12-17] MEDS: allopurinoL 100 MG TABLET PO (10:16)
[2022-12-17] MEDS: ATORVASTATIN 20 MG TABLET PO (10:16)
[2022-12-17] MEDS: ESTROGENS, CONJUGATED 25 MG/5 ML VIAL IV PUSH (10:16)
[2022-12-17] MEDS: lisinopriL 20 MG TABLET 40 MG PO (10:17)
[2022-12-17] MEDS: WATER, STERILE FOR INJECTION 10 ML VIAL XX (10:59)
[2022-12-17] MEDS: SODIUM CHLORIDE 0.9% IV 250 ML 30 ML IV CONT (11:31)
--- NOTE | 2022-12-17 11:43 | PM.IMHP ---
H&P: HPI History of Present Illness Date/Time: 12/17/22 11:43 Chief Complaint: Vaginal bleeding Narrative: this patient is a 52-year-old female with acute heavy vaginal bleeding that has made her severely anemic, symptomatically anemic. She has no pain, no fever, no chills. She denies any chest pain shortness of breath. She has a vague /semi vague history of DVT. She had DVT in the right femoral artery after an 8 [address] ride. There is no documented inherited thrombophilia. There has been no comprehensive evaluation of inherited thrombophilia. We met in the office yesterday. We returned to treat her regular dose progesterone. She continued to bleed heavily. She was on Eliquis was previously. We agreed to restart his Eliquis and treat with IV estrogen. And now we will send her home with progesterone and high dose progestins. After 12 hours and 2 doses of estrogen she has not stopped bleeding. Review of Systems Review of Systems: All systems reviewed & are unremarkable except as noted in HPI and below Constitutional: Constitutional: Denies chills, Denies fatigue, Denies fever(s) and Denies weakness Eyes: Eyes: Denies blurry vision, Denies change in vision, Denies loss of peripheral vision, Denies loss of vision, Denies other visual disturbances and Denies eye pain ENT: Denies vertigo, Denies dizziness, Denies hearing loss, Denies mouth pain, Denies nasal obstruction, Denies neck mass and Denies neck pain Cardiovascular: Cardiovascular: Denies chest pain, Denies diaphoresis, Denies syncope, Denies leg edema and Denies dyspnea Respiratory: Respiratory: Denies chest congestion, Denies cough, Denies hemoptysis, Denies dyspnea and Denies wheezing Gastrointestinal: Gastrointestinal: Denies abdominal pain, Denies constipation, Denies diarrhea, Denies nausea and Denies vomiting Genitourinary: Genitourinary: Denies hematuria, Denies change in libido, Denies nocturia, Denies genital lesions, Denies flank pain and Denies urinary urgency Musculoskeletal: Musculoskeletal: Denies abnormal gait, Denies back pain, Denies myalgias, Denies arthralgias, Denies joint swelling, Denies muscle weakness and Denies neck pain Integumentary/Breasts: Skin/Breast: Denies swelling, Denies breast pain, Denies breast mass, Denies dry skin, Denies nipple discharge, Denies unusual bruising and Denies jaundice Neurologic: Denies Neuro-related abnormal movements, Denies Abnormal speech present, Denies abnormal gait, Denies behavioral changes, Denies confusion, Denies vertigo, Denies dizziness, Denies syncope, Denies loss of vision, Denies memory loss, Denies convulsions and Denies weakness Psychiatric: Psychiatric: Denies abnormal sleep pattern, Denies behavioral changes, Denies change in libido, Denies confusion, Denies depression, Denies anhedonia and Denies memory loss Endocrine: Endocrine: Reports no additional endocrine complaints, Denies change in libido and Denies fatigue Hematologic/Lymphatic: Hematologic/Lymphatic: Reports no additional hematologic/lymphatic complaints Allergic/Immunologic: Allergic/Immunologic: Reports no additional allergic/immunologic complaints and Denies wheezing PMFSH Past Medical History Medical History (Updated 12/17/22 @ 11:47 by Migdalia Wilson MD) CLL (chronic lymphocytic leukemia) DVT (deep venous thrombosis) History of arterial occlusion History of endometrial biopsy Hypertension Nicotine dependence, cigarettes, uncomplicated Obesity Pyoderma gangrenosa Superficial granulomatous pyoderma Vasculitis Surgical History Surgical History History of adenoidectomy Hx of tonsillectomy Family History Family History (Updated 12/16/22 @ 18:39 by Paul Thoams RN) Father COPD (chronic obstructive pulmonary disease) Grandparent Colon cancer Sibling Pancreatic cancer Social History Social History Smo
[2022-12-17 12:25] LABS: Hemoglobin A1C 5.4 % (<5.7)
[2022-12-17] MEDS: TUBING, BLOOD PLUM PUMP TUBING 1 EACH XX (12:38)
--- NOTE | 2022-12-17 13:35 | PC.NURSE ---
In the TAR the 1146 vitals are incorrectly documented. Correct documentation is BP: 130/63 100% O2 RR 16 HR:77 97.9 F
[2022-12-17 15:20] LABS: Hematocrit 28.8 % (37.0-47.0); Hemoglobin 9.3 g/dL (12.0-15.0)
--- NOTE | 2023-01-13 13:43 | P.PNOB_ITS ---
OB - Triage/Final Diagnosis Visit Information Comments/Additional reasons for admission: I have assessed the risk for this patient, Nicole Hamilton, and determined that she would benefit from observation care. Evaluation Laboratory results: Laboratory Tests 12/16/22 12/16/22 12/17/22 18:10 19:10 05:22 WBC 10.4 H RBC 2.36 L Hgb 6.0 L* D Hct 20.2 L* MCV 85.6 MCH 25.4 L MCHC 29.7 L RDW 16.4 H Plt Count 254 D MPV 10.0 Immature Gran % (Auto) 0.3 Neut % (Auto) 78.1 H Lymph % (Auto) 14.7 L [place] % (Auto) 5.9 Eos % (Auto) 0.7 Baso % (Auto) 0.3 Lymph # (Auto) 1.53 [place] # (Auto) 0.6 Eos # (Auto) 0.1 Baso # (Auto) 0.0 Abs Immat Gran (auto) 0.03 Absolute Neuts (auto) 8.1 H Absolute Nucleated RBC 0.0 Nucleated RBC % 0.0 Platelet Estimate Adequate Hypochromasia 1+ Anisocytosis 2+ Schistocytes None seen Hemoglobin A1c 5.4 Blood Type A Positive Antibody Screen Negative Crossmatch See Detail 12/17/22 12/17/22 05:24 15:15 WBC 10.7 H RBC 3.14 L Hgb 8.4 L 9.3 L Hct 27.1 L 28.8 L MCV 86.3 MCH 26.8 D MCHC 31.0 L RDW 16.1 H Plt Count 205 MPV 9.3 Immature Gran % (Auto) Neut % (Auto) Lymph % (Auto) [place] % (Auto) Eos % (Auto) Baso % (Auto) Lymph # (Auto) [place] # (Auto) Eos # (Auto) Baso # (Auto) Abs Immat Gran (auto) Absolute Neuts (auto) Absolute Nucleated RBC Nucleated RBC % Platelet Estimate Hypochromasia Anisocytosis Schistocytes Hemoglobin A1c Blood Type Antibody Screen Crossmatch Final Diagnosis (1) DVT (deep venous thrombosis): Code(s): I82.409 - Acute embolism and thrombosis of unspecified deep veins of unspecified lower extremity Status: Acute
== END 2022-12-17 16:30 | disposition home or self-care (01) ==
PROVIDERS: Admitting Provider Obstetrics & Gynecology; PCP Family Medicine; Visit Provider Obstetrics & Gynecology
DX: I82.409 Acute embolism and thrombosis of unspecified deep veins of unspecified lower extremity (principal); N93.9 Abnormal uterine and vaginal bleeding, unspecified; D64.9 Anemia, unspecified; Z86.718 Personal history of other venous thrombosis and embolism; I10 Essential (primary) hypertension; E66.9 Obesity, unspecified; F17.210 Nicotine dependence, cigarettes, uncomplicated; Z79.01 Long term (current) use of anticoagulants; Z79.02 Long term (current) use of antithrombotics/antiplatelets; Z79.899 Other long term (current) drug therapy
CPT/HCPCS: 36415; 36430; 83036; 85014; 85018; 85025; 85027; 86850; 86900; 86901; 86923; 96374; 96375; A9270; G0378; G0379; J1410; J7050; P9016

== ENCOUNTER 2022-12-21 00:43 | Day surgery (SDC) | payer MEDICARE, MEDICAID, SELFPAY ==
[2022-12-20 09:56] VITALS: BMI 44.1
--- NOTE | 2022-12-20 10:00 | PC.NURSE ---
Report to the Outpatient Waiting Room, entrance under the green pavilion located off [facility], at time 1215 on date 12/20/22. Planned Procedure Time: 1415. Time changes happen often and if your time is changed the preop area will call you the afternoon before. - You and your visitor will be asked to self-screen and do not enter if you have any COVID symptoms. - Only one visitor is requested with a max of two and NO children visitors are allowed at this time. - The patient visitor may be requested to leave or wait in car when not with patient due to distancing restrictions. - A mask is optional within the hospital at this time. Patients may have clear liquids (water, carbonated beverages, clear teas, apple juice) until 3 hours prior to surgery with a maximum of 20 ounces. 1115 - No food from midnight until time of surgery - Infants may have breast milk until 4 hours before surgery, formula 6 hours prior to surgery. - Children will be allowed to drink immediately following surgery. If applicable, please bring a bottle or sippy cup to assist with drinking. Juice, water, soda, and popsicles are readily available. For infants on formula, please bring formula the day of surgery. Pacifiers are allowed. Take the following medications with a SIP of water the morning of surgery: allopurinol, atorvastatin, estradiol, metoprolol, norethindrone, progesterone, venclexta DO NOT STOP ANY OF YOUR OTHER PRESCRIPTION MEDICATIONS PRIOR TO SURGERY ?EXCEPT THE FOLLOWING Medications to discontinue per physician lisinopril, (instructed patient to check with Dr. Wilson about holding eliquis & plavix) Date to take last dose 12/20/22 Please no make-up, nail pitcairn islander, hairspray, perfume, deodorant, or body powder the day of surgery. No jewelry (including any body piercings) or valuables the day of surgery, leave them at home. Please take a shower or bath the night before, or the morning of, surgery with an antibacterial soap. Wear comfortable, loose fitting clothing. Children are encouraged to wear pajamas. - Jewelry must be removed prior to entering the operating room. Rings and piercings that are not removed may be cut off. - The hospital will not accept responsibility for valuables. - Please leave all valuables, including medications, at home the day of surgery. If you are going home after surgery, a licensed show horse driver must drive you home. - NO public transportation without another adult if you receive anesthesia. - We recommend that an adult stay with you for 24 hours following discharge. - We also recommend that you do not drive, make important decision, drink alcoholic beverages, or take any drugs that were not prescribed by your health care provider for at least 24 hours after your discharge time. For Pediatric surgeries, we recommend two adults accompany the child home. Follow any additional instructions given to you from your surgeon. If you or anyone in your household have experienced Covid symptoms in the past week, please notify your surgeon or the nurse liaison at the phone number below for possible testing. Telephone instructions given to Nicole Hamilton and asked if any additional questions and then verbalized understanding. Patient advised to call surgeon office or pre surgery nurse liaison [phone] if any additional questions.
[2022-12-21] MEDS: ACETAMINOPHEN 500 MG TABLET 1000 MG PO (13:12)
[2022-12-21] MEDS: LACTATED RINGERS 1,000 ML 30 ML IV CONT (13:13)
[2022-12-21 13:15] VITALS: BP 121/55; PULSE 66; RESP 16; TEMP 37.3; O2SAT 100
--- NOTE | 2022-12-21 13:48 | WPDANESEPPF ---
Anes - Initial Pre Proc Eval Procedure: Operation Date: 12/21/22 14:15 Proposed Procedures p Hysteroscopy with Keren Endometrial Ablation - Migdalia Wilson MD Date/Time: 12/21/22 13:48 Surgeon: Migdalia Wilson MD Pre Op Diagnosis: Menorrhagia Patient Data Age: 52 Gender: F Height: 1.68 m Weight: 125 kg Last Vital Signs Temp 37.3 C 12/21/22 13:15 Pulse 66 12/21/22 13:15 Resp 16 12/21/22 13:15 BP 121/55 L 12/21/22 13:15 Pulse Ox 100 12/21/22 13:15 O2 Del Method Room Air 12/21/22 13:15 Allergies Allergy/AdvReac Type Severity Reaction Status Date / Time gentian jake Allergy Rash Verified 12/21/22 13:23 Tetracyclines AdvReac Other Verified 12/21/22 13:23 Home Medications Medication Instructions Recorded Confirmed Type allopurinol 100 mg tablet 100 mg PO DAILY #90 tabs 08/25/22 12/20/22 Rx progesterone micronized 200 mg 200 mg PO TID 12/13/22 12/20/22 History capsule apixaban 5 mg (74 tabs) tablets in 5 mg PO BID 12/16/22 12/20/22 History a dose pack (Eliquis DVT-PE Treat 30D Start) atorvastatin 20 mg tablet 20 mg PO DAILY 12/16/22 12/20/22 History clopidogrel 75 mg tablet 75 mg PO DAILY 12/16/22 12/20/22 History lisinopril 40 mg tablet 40 mg PO DAILY 12/16/22 12/20/22 History metoprolol tartrate 25 mg tablet 25 mg PO DAILY 12/16/22 12/20/22 History venetoclax 100 mg tablet 400 mg PO QAM 12/16/22 12/20/22 History (Venclexta) estradiol 1 mg tablet 1 mg PO DAILY #7 tabs 12/17/22 12/21/22 Rx norethindrone acetate 5 mg tablet 5 mg PO BID #14 tabs 12/17/22 12/20/22 Rx Patient hx anesthesia problems: none Family hx anesthesia problems: none Results Review: All pre-operative results and documents have been reviewed as part of the pre-operative evaluation. [facility] Past Medical History Medical History CLL (chronic lymphocytic leukemia) DVT (deep venous thrombosis) History of arterial occlusion History of endometrial biopsy Hypertension Nicotine dependence, cigarettes, uncomplicated Obesity Pyoderma gangrenosa Superficial granulomatous pyoderma Vasculitis Surgical History Surgical History History of adenoidectomy Hx of tonsillectomy Family History Family History Father COPD (chronic obstructive pulmonary disease) Grandparent Colon cancer Sibling Pancreatic cancer Social History Social History Smoking packs per day: 0.5 Smoking cigarettes per day: 10.0 Years smoked: 30 Smoking pack-years: 15.00 Smoking status: Current every day smoker Tobacco type: cigarettes Alcohol intake: never Substance use: never Substance use type: does not use Lack of Transportation: No Lack of Food: Never True Current Housing: I Have Housing Concerned About Future Housing: No Difficulty Paying Gas/Electric Bills: No Difficulty Paying for Meds: No Currently Unemployed: No Education: Decline to Answer Difficulty w/ Childcare or Family Care: No Living arrangements: with family Occupation/Education: occupation Additional occupation/education comments: [employer] Spiritual care concerns: No Anes - Eval Final PreProcedure Day of Procedure 12/21/22 13:48 Patient weight: morbidly obese Heart: regular rate and rhythm Lungs: clear to auscultation Airway: Mallampati scale class III Neurological: alert and oriented Last oral intake: >/= 8 hours ASA classification: IV Emergent: no Anesthetic plan: proceed Anesthesia type and monitoring: general GIVS and standard monitoring Results Review: All pre-operative results and documents have been reviewed as part of the pre-operative evaluation. Informed Consent: The patient's anesthetic plan and its attendant risks and benefits were discussed with the patient/family/POA
--- NOTE | 2022-12-21 14:19 | PM.IMHP ---
H&P: HPI History of Present Illness Date/Time: 12/21/22 14:19 Chief Complaint: Vaginal bleeding Narrative: this patient is a 52-year-old female with profound vaginal bleeding, she had bled down to a hemoglobin of 7. Passing large clots and unresponsive to hormones, history of DVT, failed treatment of progesterone. We agreed to perform endometrial ablation hysteroscopy. She understands the risk. She understands that injuries may occur that result in hospitalization, more surgery, severe illness. She denies any nausea, vomiting, fever, chills. She denies any chest pain or shortness of breath. Review of Systems Review of Systems: All systems reviewed & are unremarkable except as noted in HPI and below Constitutional: Constitutional: Denies chills, Denies fatigue, Denies fever(s) and Denies weakness Eyes: Eyes: Denies blurry vision, Denies change in vision, Denies loss of peripheral vision, Denies loss of vision, Denies other visual disturbances and Denies eye pain ENT: Denies vertigo, Denies dizziness, Denies hearing loss, Denies mouth pain, Denies nasal obstruction, Denies neck mass and Denies neck pain Cardiovascular: Cardiovascular: Denies chest pain, Denies diaphoresis, Denies syncope, Denies leg edema and Denies dyspnea Respiratory: Respiratory: Denies chest congestion, Denies cough, Denies hemoptysis, Denies dyspnea and Denies wheezing Gastrointestinal: Gastrointestinal: Denies abdominal pain, Denies constipation, Denies diarrhea, Denies nausea and Denies vomiting Genitourinary: Genitourinary: Denies hematuria, Denies change in libido, Denies nocturia, Denies genital lesions, Denies flank pain and Denies urinary urgency Musculoskeletal: Musculoskeletal: Denies abnormal gait, Denies back pain, Denies myalgias, Denies arthralgias, Denies joint swelling, Denies muscle weakness and Denies neck pain Integumentary/Breasts: Skin/Breast: Denies swelling, Denies breast pain, Denies breast mass, Denies dry skin, Denies nipple discharge, Denies unusual bruising and Denies jaundice Neurologic: Denies Neuro-related abnormal movements, Denies Abnormal speech present, Denies abnormal gait, Denies behavioral changes, Denies confusion, Denies vertigo, Denies dizziness, Denies syncope, Denies loss of vision, Denies memory loss, Denies convulsions and Denies weakness Psychiatric: Psychiatric: Denies abnormal sleep pattern, Denies behavioral changes, Denies change in libido, Denies confusion, Denies depression, Denies anhedonia and Denies memory loss Endocrine: Endocrine: Reports no additional endocrine complaints, Denies change in libido and Denies fatigue Hematologic/Lymphatic: Hematologic/Lymphatic: Reports no additional hematologic/lymphatic complaints Allergic/Immunologic: Allergic/Immunologic: Reports no additional allergic/immunologic complaints and Denies wheezing PMFSH Past Medical History Medical History CLL (chronic lymphocytic leukemia) DVT (deep venous thrombosis) History of arterial occlusion History of endometrial biopsy Hypertension Nicotine dependence, cigarettes, uncomplicated Obesity Pyoderma gangrenosa Superficial granulomatous pyoderma Vasculitis Surgical History Surgical History History of adenoidectomy Hx of tonsillectomy Family History Family History Father COPD (chronic obstructive pulmonary disease) Grandparent Colon cancer Sibling Pancreatic cancer Social History Social History Smoking packs per day: 0.5 Smoking cigarettes per day: 10.0 Years smoked: 30 Smoking pack-years: 15.00 Smoking status: Current every day smoker Tobacco type: cigarettes Alcohol intake: never Substance use: never Substance use type: does not use Lack of Transportation: No Lack of Food: Never
--- NOTE | 2022-12-21 14:22 | WPDHPUPDATE1 ---
History and Physical Update Update Date/Time: 12/21/22 14:22 History and Physical has been reviewed, including an updated exam of the patient. There are NO changes in the patient's condition. Risks, benefits, and alternatives have been discussed and questions answered. Patient agrees to proceed with procedure.
[2022-12-21] MEDS: LIDOCAINE HCL 1% LOCAL INJ 20 ML VIAL 10 ML INFILTRATE (14:35)
[2022-12-21 15:08] VITALS: BP 106/46; PULSE 62; RESP 12; O2SAT 100
--- NOTE | 2022-12-21 15:11 | W.PM.PROC2 ---
Procedure Note - Detailed Date of Procedure 12/21/22 Pre-op Diagnosis Menorrhagia Post-op Diagnosis Same Procedure Performed Hysteroscopy D&C Surgeon Migdalia Wilson MD Anesthesia MAC Indications abnormal uterine bleeding Description of Procedure the patient was taken the operating room. She was prepped and draped in the dorsal lithotomy position after induction of mac anesthesia. A speculum was placed in the vagina. The cervix was grasped with a tenaculum. The cervix was dilated about 1 cm. The hysteroscope was inserted. The intrauterine cavity and endocervix were evaluated. Hysteroscope was withdrawn. A medium-size curette was used to curettage all the surfaces were within the endometrial cavity. the sample was collected on Telfa and sent to pathology. The hysteroscope was reinserted and the above findings were noted. Patient tolerated the procedure well. The speculum and tenaculum were removed. She was taken recovery room in stable condition. Sponge lap and needle counts were correct x2. Estimated Blood Loss 40 Drains No Packing No Pathology Yes Complications No immediate complications Condition Stable Disposition PACU
[2022-12-21 15:35] VITALS: BP 136/73; PULSE 71; RESP 20
[2022-12-21 16:00] VITALS: BP 136/73; PULSE 71; RESP 20
--- NOTE | 2022-12-21 22:22 | W.PM.PROC2 ---
Procedure Note - Detailed Date of Procedure 12/21/22 Pre-op Diagnosis Menorrhagia Post-op Diagnosis Same ( With vulvar lesions) Procedure Performed endometrial ablation with hysteroscopy d&c , excision of vulvar lesions. Surgeon Migdalia Wilson MD Anesthesia MAC Indications Severe menorrhagia Findings Normal vulva vagina and cervix. Normal endometrium. Description of Procedure The patient was taken to the operating room. She was prepped and draped in the dorsal lithotomy position after induction of mac anesthesia. A speculum was placed in the vagina. Cervix grasped with a tenaculum. The cervix was dilated to about 1 cm. The hysteroscope was inserted. The above findings were noted. Endometrial curettage was performed with a medium-size curette. All surfaces of the endometrium were affected by the curettage. The specimens were collected and sent to pathology. Measurements were taken of the uterus and cervix. The uterine length was then entered into the hand piece of the Keren device. The device was inserted into the intrauterine cavity. The array of the device was expanded. The balloon cuff was inflated. A good seal was achieved. The energy and safety cycles were initiated and completed. The array was collapsed and the instrument was withdrawn after deflating the balloon cuff. Hysteroscope was reinserted. Above findings were noted. The hysteroscope was removed. 3 simple excision and closures of the skin of the vulva were performed. Skin was injected with lidocaine. Elliptical incisions were made around 3 lesions. Total length of the 3 lesions was proximally 4 cm. There were 2 on the left vulva and perineal skin, there was 1 on the right side. The closures resample with interrupted 2 0 Vicryl sutures. They were hemostatic when finished. The patient tolerated the procedure well. The speculum and tenaculum were removed. She was taken to recovery in stable condition. Sponge lap and needle counts were correct x2. Estimated Blood Loss 40 Pathology Yes Complications No immediate complications Condition Stable Disposition Same day
== END 2022-12-21 16:02 | disposition home or self-care (01) ==
PROVIDERS: PCP Family Medicine; Visit Provider Obstetrics & Gynecology
PROC: 0U5B8ZZ Destruction of Endometrium, Via Natural or Artificial Opening Endoscopic (ICD-10-PCS; CPT 58563; principal; 2022-12-21 14:15)
DX: N92.0 Excessive and frequent menstruation with regular cycle (principal); D64.9 Anemia, unspecified; L82.1 Other seborrheic keratosis; N90.89 Other specified noninflammatory disorders of vulva and perineum; C91.10 Chronic lymphocytic leukemia of B-cell type not having achieved remission; I10 Essential (primary) hypertension; Z86.718 Personal history of other venous thrombosis and embolism; Z79.02 Long term (current) use of antithrombotics/antiplatelets; Z79.01 Long term (current) use of anticoagulants; F17.210 Nicotine dependence, cigarettes, uncomplicated; E66.01 Morbid (severe) obesity due to excess calories; Z68.41 Body mass index [BMI] 40.0-44.9, adult
CPT/HCPCS: 11424; 11200; 58563; 88305; A9270; J2250; J2704; J3010; J7120

== ENCOUNTER 2023-01-11 16:05 | Emergency (ER) | payer MEDICARE, MEDICAID, SELFPAY ==
--- NOTE | ~2023-01-11 | XR_ITS ---
EXAMINATION: XR foot LT min 3V DATE: 01/11/2023 16:43 INDICATION: Left foot pain TECHNIQUE: Dorsoplantar, lateral, and 2 oblique views of the left foot were obtained. COMPARISON: 06/15/2020 FINDINGS: Posterior and plantar calcaneal enthesophytes are again noted. Bone alignment is normal. Th ere is no fracture. The soft tissues are unremarkable. IMPRESSION: 1. No acute osseous abnormality. Reviewed, dictated and finalized at location B.
[2023-01-11 16:19] VITALS: BP 163/72; PULSE 77; RESP 18; TEMP 37; O2SAT 100
--- NOTE | 2023-01-11 16:19 | ED.LOWEXIN ---
HPI - Extremity Injury (Lower) General Chief Complaint: Extremity Problem,Nontraumatic Stated Complaint: left leg pain Time Seen by Provider: 01/11/23 16:05 Source: patient Mode of arrival: ambulatory Limitations: no limitations History of Present Illness HPI Narrative: 52-year-old female with a history of hypertension, CAD, Raynaud's, CKD stage 3, gout, vasculitis, CLL , Recurrent DVT on Eliquis , Menorrhagia status post uterine ablation 3 weeks ago with negative biopsies, presents to the ER with a 2 day history of -- left 1st metatarsophalangeal joint pain with swelling and erythema. No trauma. the patient has a history of recurrent DVTs. She was started on Eliquis which was discontinued a 3 weeks ago secondary to menorrhagia. Onset (ago): day(s) ( Started 2 days ago) Severity: severe Relieving factors: nothing Exacerbating factors: weight bearing and movement Other symptoms: none Related Data Home Medications Medication Instructions Recorded Confirmed progesterone micronized 200 mg 200 mg PO TID 12/13/22 01/11/23 capsule apixaban 5 mg (74 tabs) tablets in 5 mg PO BID 12/16/22 01/11/23 a dose pack (Eliquis DVT-PE Treat 30D Start) atorvastatin 20 mg tablet 20 mg PO DAILY 12/16/22 01/11/23 clopidogrel 75 mg tablet 75 mg PO DAILY 12/16/22 01/11/23 lisinopril 40 mg tablet 40 mg PO DAILY 12/16/22 01/11/23 metoprolol tartrate 25 mg tablet 25 mg PO DAILY 12/16/22 01/11/23 venetoclax 100 mg tablet 400 mg PO QAM 12/16/22 01/11/23 (Venclexta) Allergies Allergy/AdvReac Type Severity Reaction Status Date / Time gentian jake Allergy Rash Verified 01/11/23 18:23 Tetracyclines AdvReac Other Verified 01/11/23 18:23 Review of Systems Review of Systems: All systems reviewed & are unremarkable except as noted in HPI and below Constitutional: Constitutional: Reports as per HPI and Reports no additional constitutional complaints Eyes: Eyes: Reports as per HPI and Reports no additional eye complaints ENT: Reports system reviewed and no additional complaints, except as documented and Reports as per HPI Cardiovascular: Cardiovascular: Reports as per HPI and Reports no additional cardiovascular complaints Respiratory: Respiratory: Reports as per HPI and Reports no additional respiratory complaints Gastrointestinal: Gastrointestinal: Reports as per HPI and Reports no additional gastrointestinal complaints Genitourinary: Genitourinary: Reports no additional female genitourinary complaints and Reports as per HPI Musculoskeletal: Musculoskeletal: Reports no additional musculoskeletal complaints and Reports as per HPI Comments: left 1st metatarsophalangeal joint pain / swelling / erythema left foot swelling Integumentary/Breasts: Skin/Breast: Reports system reviewed and no additional complaints, except as docu and Reports as per HPI Comments: healed scar on right cough Neurologic: Reports system reviewed and no additional complaints, except as documented and Reports as per HPI Psychiatric: Psychiatric: Reports no additional psychiatric complaints and Reports as per HPI Endocrine: Endocrine: Reports no additional endocrine complaints and Reports as per HPI Hematologic/Lymphatic: Hematologic/Lymphatic: Reports no additional hematologic/lymphatic complaints and Reports as per HPI Allergic/Immunologic: Allergic/Immunologic: Reports no additional allergic/immunologic complaints and Reports as per HPI PMFSH Past Medical History Medical History CLL (chronic lymphocytic leukemia) DVT (deep venous thrombosis) History of arterial occlusion History of endometrial biopsy Hypertension Nicotine dependence, cigarettes, uncomplicated Obesity Pyoderma gangrenosa Superficial granulomatous pyoderma Vasculitis Surgical History Surgical History History of adenoidectomy Hx of tonsillectomy Family History
[2023-01-11 16:40] LABS: Basophils Absolute Auto 0.04 K/mm3 (0.00-0.10); Basophils Percent Auto 0.4 % (0.0-1.0); Eosinophils Absolute Auto 0.06 K/mm3 (0.02-0.50); Eosinophils Percent Auto 0.6 % (1.0-6.0); Hematocrit 32.8 % (35.0-49.0); Hemoglobin 10.1 g/dL (12.0-15.0); Immature Granulocyte Absolute 0.04 K/mm3 (0.00-0.00); Immature Granulocyte Percent A 0.4 % (0.0-0.0); Lymphocytes Absolute Auto 1.45 K/mm3 (1.10-4.50); Lymphocytes Percent Auto 14.6 % (18.0-42.0); Mean Corpuscular HGB Conc 30.8 g/dL (32.0-36.0); Mean Corpuscular Hemoglobin 25.5 pg (27.0-31.0); Mean Corpuscular Volume 82.8 fL (78.0-102.0); Mean Platelet Volume 9.7 fl (9.2-11.8); Monocytes Absolute Auto 0.74 K/mm3 (0.10-0.90); Monocytes Percent Auto 7.5 % (2.0-11.0); Neutrophils Absolute Auto 7.6 K/mm3 (1.7-7.2); Neutrophils Percent Auto 76.5 % (50.0-70.0); Platelet Count Result 207 K/mm3 (150-420); Red Blood Count 3.96 M/mm3 (4.20-5.40); Red Cell Distribution Width 16.3 % (11.6-14.4); White Blood Count 9.9 K/mm3 (4.8-10.8)
[2023-01-11 17:00] LABS: Alanine Aminotransferase 24 U/L (14-59); Albumin Level 3.3 g/dL (3.4-5.0); Alkaline Phosphatase 111 U/L (46-116); Anion Gap 9 mmol/L (8-16); Aspartate Amino Transferase 15 U/L (15-37); Bilirubin,Total 0.3 mg/dL (0.00-1.00); Blood Urea Nitrogen 25 mg/dL (7-18); Calcium 8.5 mg/dL (8.5-10.1); Carbon Dioxide 27 mmol/L (21-32); Chloride 105 mmol/L (98-108); Estimated CRCL calculation 61 ml/min; Estimated Glomerular Filt Rate 45; Glucose 90 mg/dL (70-99); Osmolality Calculated 296 mOsm/kg (285-295); Potassium 3.8 mmol/L (3.5-5.1); Sodium 141 mmol/L (136-145); Total Protein 7.2 g/dL (6.4-8.2); Uric Acid 6.5 mg/dL (2.6-6.0)
[2023-01-11 17:05] LABS: Lactic Acid Reflex 1.2 mmol/L (0.4-2.0)
[2023-01-11 17:10] LABS: D Dimer 0.55 mg/L (0.19-0.50); INR 0.9; Partial Thromboplastin Time 24.6 SEC (23.90-30.70); Prothrombin Time 9.9 Seconds (9.64-11.0)
[2023-01-11] MEDS: ENOXAPARIN 120 MG/0.8 ML SYRINGE SUB-Q (17:32)
[2023-01-11] MEDS: predniSONE 20 MG TABLET 40 MG PO (17:32)
[2023-01-11] MEDS: SODIUM CHLORIDE 0.9% IV 1,000 ML 999 ML IV CONT (17:33)
[2023-01-11 18:45] VITALS: BP 156/88; PULSE 72; RESP 18; TEMP 36.6; O2SAT 100
--- NOTE | 2023-01-11 18:52 | PC.NURSE ---
On 01/11/23, the student, [rosette altamirano ], provided care and completed [facility] documentation on this patient. I have reviewed the student's documentation and agree with the findings.
== END 2023-01-11 18:58 | disposition home or self-care (01) ==
PROVIDERS: Emergency Provider Internal Medicine Critical Care Medicine; PCP Family Medicine
DX: M10.9 Gout, unspecified (principal); C91.10 Chronic lymphocytic leukemia of B-cell type not having achieved remission; E88.3 Tumor lysis syndrome; D64.9 Anemia, unspecified; I12.9 Hypertensive chronic kidney disease with stage 1 through stage 4 chronic kidney disease, or unspecified chronic kidney disease; N18.30 Chronic kidney disease, stage 3 unspecified; I25.10 Atherosclerotic heart disease of native coronary artery without angina pectoris; F17.210 Nicotine dependence, cigarettes, uncomplicated; Z86.718 Personal history of other venous thrombosis and embolism; Z79.01 Long term (current) use of anticoagulants
CPT/HCPCS: 36415; 73630; 80053; 83605; 84550; 85025; 85380; 85610; 85730; 96360; 96372; 99283; J1650; J7030; J7512

== ENCOUNTER 2023-06-27 10:03 | Emergency (ER) | payer MEDICARE, MEDICAID, SELFPAY ==
[2023-06-27 10:14] VITALS: BP 168/115; PULSE 92; RESP 19; TEMP 36.8; O2SAT 100
--- NOTE | 2023-06-27 10:18 | ED.ABDPAIN ---
HPI - Abdominal Pain General Chief Complaint: Abdominal Pain Stated Complaint: unspecified Time Seen by Provider: 06/27/23 10:11 History of Present Illness HPI narrative: Pt presents with numerous concerns. Pt has been passing blood in urine and has urinary frequency. Pt has leukemia and had bone marrow biopsy yesterday to see if she's in remission. Pt has uterine bleeding and had CT of her abdomen last week showing and enlarged uterus which she is following up with her OB. Pt felt nauseated this morning so did not take her morning meds(including BP meds). Pt also feels warm. Related Data Home Medications Medication Instructions Recorded Confirmed progesterone micronized 200 mg 200 mg PO TID 12/13/22 06/27/23 capsule venetoclax 100 mg tablet 400 mg PO QAM 12/16/22 06/27/23 (Venclexta) Allergies Allergy/AdvReac Type Severity Reaction Status Date / Time gentian jake Allergy Rash Verified 06/27/23 10:27 Tetracyclines AdvReac Other Verified 06/27/23 10:27 Review of Systems Review of Systems: All systems reviewed & are unremarkable except as noted in HPI and below PMFSH Past Medical History Medical History CLL (chronic lymphocytic leukemia) DVT (deep venous thrombosis) History of arterial occlusion History of endometrial biopsy Hypertension Nicotine dependence, cigarettes, uncomplicated Obesity Pyoderma gangrenosa Superficial granulomatous pyoderma Vasculitis Surgical History Surgical History History of adenoidectomy Hx of tonsillectomy Family History Family History Father COPD (chronic obstructive pulmonary disease) Grandparent Colon cancer Sibling Pancreatic cancer Social History Social History Smoking packs per day: 0.5 Smoking cigarettes per day: 10.0 Years smoked: 30 Smoking pack-years: 15.00 Smoking status: Current every day smoker Tobacco type: cigarettes Alcohol intake: never Substance use: never Substance use type: does not use Lack of Transportation: No Lack of Food: Never True Current Housing: I Have Housing Concerned About Future Housing: No Difficulty Paying Gas/Electric Bills: No Difficulty Paying for Meds: No Currently Unemployed: No Education: Decline to Answer Difficulty w/ Childcare or Family Care: No Living arrangements: with family Occupation/Education: occupation Additional occupation/education comments: [employer] Spiritual care concerns: No Exam Const: General: no acute distress Nutritional Appearance: obese Orientation/consciousness: patient oriented x3 Limitations: no limitations Eyes: EOM: EOMs intact bilaterally Neck: Neck: normal visual inspection and no meningeal signs Chest: Chest palpation & inspection: normal inspection of the chest Resp: Effort & Inspection: normal respiratory effort Auscultation: clear to auscultation bilaterally Cardio: Rate: regular rate Rhythm: regular rhythm GI: GI Palp: Yes Soft to palpation and Yes Tenderness to palpation present (GI) (low abdomen) Auscultation: normal bowel sounds Skin: General skin exam: normal color Rashes: no rashes Wounds: no wounds Neuro: General: patient oriented x3, moves all extremities, no meningeal signs and no focal motor deficits Speech: normal speech Extrem: General: normal to inspection and no clubbing, cyanosis or edema Psych: Mental Status: mental status grossly normal Affect: normal affect Attitude: cooperative Course Vital Signs Vital signs: Vital Signs Temperature 98.3 F 06/27/23 10:14 Pulse Rate 92 06/27/23 10:14 Respiratory Rate 19 06/27/23 10:14 Blood Pressure 168/115 H 06/27/23 10:14 Pulse Oximetry 100 06/27/23 10:14 Oxygen Delivery Room Air 06/27/23 10:14 Bimal
[2023-06-27 10:35] LABS: Basophils Percent Auto 0.9 % (0.0-1.0); Eosinophils Absolute Auto 0.09 K/mm3 (0.02-0.50); Eosinophils Percent Auto 0.8 % (1.0-6.0); Hematocrit 38.3 % (35.0-49.0); Hemoglobin 11.3 g/dL (12.0-15.0); Immature Granulocyte Absolute 0.09 K/mm3 (0.00-0.00); Immature Granulocyte Percent A 0.8 % (0.0-0.0); Lymphocytes Absolute Auto 1.33 K/mm3 (1.10-4.50); Lymphocytes Percent Auto 11.7 % (18.0-42.0); Mean Corpuscular HGB Conc 29.5 g/dL (32.0-36.0); Mean Corpuscular Hemoglobin 23.3 pg (27.0-31.0); Mean Platelet Volume 10.4 fl (9.2-11.8); Monocytes Absolute Auto 0.86 K/mm3 (0.10-0.90); Monocytes Percent Auto 7.6 % (2.0-11.0); Neutrophils Absolute Auto 8.9 K/mm3 (1.7-7.2); Neutrophils Percent Auto 78.2 % (50.0-70.0); Platelet Count Result 452 K/mm3 (150-420); Red Blood Count 4.85 M/mm3 (4.20-5.40); Red Cell Distribution Width 17.6 % (11.6-14.4); White Blood Count 11.3 K/mm3 (4.8-10.8)
[2023-06-27 10:49] LABS: Alanine Aminotransferase 31 U/L (14-59); Albumin Level 2.2 g/dL (3.4-5.0); Alkaline Phosphatase 67 U/L (46-116); Anion Gap 15 mmol/L (8-16); Aspartate Amino Transferase 18 U/L (15-37); Bilirubin,Total 0.2 mg/dL (0.00-1.00); Blood Urea Nitrogen 13 mg/dL (7-18); Calcium 8.6 mg/dL (8.5-10.1); Carbon Dioxide 18 mmol/L (21-32); Chloride 105 mmol/L (98-108); Estimated CRCL calculation 56 ml/min; Estimated Glomerular Filt Rate 39; Glucose 133 mg/dL (70-99); Osmolality Calculated 288 mOsm/kg (285-295); Potassium 3.6 mmol/L (3.5-5.1); Sodium 138 mmol/L (136-145); Total Protein 6.8 g/dL (6.4-8.2)
[2023-06-27] MEDS: SODIUM CHLORIDE 0.9% IV 1,000 ML 999 ML IV CONT (10:54)
[2023-06-27] MEDS: KETOROLAC 30 MG/ML VIAL (*BKC) IV PUSH (10:55)
[2023-06-27] MEDS: ONDANSETRON INJ 4 MG/2 ML VIAL IV PUSH (10:55)
[2023-06-27 11:48] VITALS: BP 161/89; PULSE 66; RESP 19; O2SAT 98
[2023-06-27 12:12] LABS: Appearance Urine Slightly Cloudy (Clear); Bilirubin Urine 2+ (Negative); Blood Urine 3+ (Negative); Color Urine Yellow (Yellow); Glucose Urine UA Negative (Negative); Ketones Urine Trace (Negative); Leukocyte Esterase Ur Negative LEU/UL (Negative); Nitrate Urine Negative (Negative); Protein Urine 3+ (Negative); Specific Grav Ur >= 1.030 (1.010-1.020)
[2023-06-27 12:20] LABS: Add Urine Microscopic? YES; Squamous Epithelial Cell Urine Few /hpf (Few)
[2023-06-27 12:21] LABS: Bacteria Urine 1+ /hpf
[2023-06-27 13:08] VITALS: BP 194/98; PULSE 86; RESP 18; TEMP 36.3; O2SAT 98
== END 2023-06-27 13:11 | disposition home or self-care (01) ==
PROVIDERS: Emergency Provider Emergency Medicine; PCP Family Medicine
DX: N39.0 Urinary tract infection, site not specified (principal); C91.10 Chronic lymphocytic leukemia of B-cell type not having achieved remission; I10 Essential (primary) hypertension; F17.210 Nicotine dependence, cigarettes, uncomplicated; Z86.718 Personal history of other venous thrombosis and embolism
CPT/HCPCS: 36415; 80053; 81001; 85025; 87077; 87086; 87088; 96361; 96374; 96375; 99284; J1885; J2405; J7030

== ENCOUNTER 2023-07-03 15:44 | Inpatient (IN) | payer MEDICARE, MEDICAID, SELFPAY ==
[2023-06-29 14:48] VITALS: BMI 42.7
--- NOTE | 2023-06-29 14:55 | PC.NURSE ---
Report to the Outpatient Waiting Room, entrance under the green pavilion located off [facility], at time 1230_ on date _07/05/23_. Planned Procedure Time: _1430 _. Time changes happen often and if your time is changed the preop area will call you the afternoon before. - You and your visitor will be asked to self-screen and do not enter if you have any COVID symptoms. - A mask is optional within the hospital at this time. Patients may have clear liquids (water, carbonated beverages, clear teas, apple juice) until 3 hours prior to surgery with a maximum of 20 ounces. - No food from midnight until time of surgery - Infants may have breast milk until 4 hours before surgery, infant formula 6 hours prior to surgery. - Children will be allowed to drink immediately following surgery. If applicable, please bring a bottle or sippy cup to assist with drinking. Juice, water, soda, and popsicles are readily available. For infants on formula, please bring formula the day of surgery. Pacifiers are allowed. Take the following medications with a SIP of water the morning of surgery: __METOPROLOL DO NOT STOP ANY OF YOUR OTHER PRESCRIPTION MEDICATIONS PRIOR TO SURGERY ?EXCEPT THE FOLLOWING Medications to discontinue per physician __PT TO CHECK WITH DR MILLER ABOUT STOPPING PLAVIX Date to take last dose Please no make-up, nail kinyarwanda, hairspray, perfume, deodorant, or body powder the day of surgery. No jewelry (including any body piercings) or valuables the day of surgery, leave them at home. Please take a shower or bath the night before, or the morning of, surgery with an antibacterial soap. Wear comfortable, loose fitting clothing. Children are encouraged to wear pajamas. - Jewelry must be removed prior to entering the operating room. Rings and piercings that are not removed may be cut off. - The hospital will not accept responsibility for valuables. - Please leave all valuables, including medications, at home the day of surgery. If you are going home after surgery, a licensed [facility] driver must drive you home. - NO public transportation without another adult if you receive anesthesia. - We recommend that an adult stay with you for 24 hours following discharge. - We also recommend that you do not drive, make important decision, drink alcoholic beverages, or take any drugs that were not prescribed by your health care provider for at least 24 hours after your discharge time. For Pediatric surgeries, we recommend two adults accompany the child home. Follow any additional instructions given to you from your surgeon. If you or anyone in your household have experienced Covid symptoms in the past week, please notify your surgeon or the nurse liaison at the phone number below for possible testing. Telephone instructions given to _PATIENT__and asked if any additional questions and then verbalized understanding. Patient advised to call surgeon office or pre surgery nurse liaison [phone] if any additional questions.
[2023-07-03 12:50] VITALS: BP 155/66; PULSE 74; RESP 20; TEMP 37.1; O2SAT 99
[2023-07-03 12:54] VITALS: BP 155/66; PULSE 74; RESP 20; TEMP 37.1; O2SAT 99
[2023-07-03 13:01] VITALS: BMI 42.0
[2023-07-03 14:00] VITALS: BP 151/62; PULSE 69; RESP 16; TEMP 37.3; O2SAT 98
[2023-07-03] MEDS: fentaNYL CITRATE INJ (*CRX) 100 MCG/2 ML VIAL 50 MCG IV PUSH (15:54)
[2023-07-03 16:23] LABS: Basophils Percent Auto 0.5 % (0.2-1.2); Eosinophils Percent Auto 0.2 % (0-4.4); Hematocrit 30.2 % (37.0-47.0); Hemoglobin 8.9 g/dL (12.0-15.0); Immature Granulocyte Absolute 0.05 K/mm3 (0.00-0.031); Immature Granulocyte Percent A 0.6 % (0-0.5); Lymphocytes Absolute Auto 1.43 K/mm3 (0.9-3.2); Lymphocytes Percent Auto 16.3 % (18.3-44.2); Mean Corpuscular HGB Conc 29.5 g/dl (32-36); Mean Corpuscular Hemoglobin 22.9 pg (26-34); Mean Corpuscular Volume 77.6 fl (80-100); Mean Platelet Volume 10.2 fl (7.4-10.4); Monocytes Absolute Auto 1.3 K/mm3 (0.1-0.6); Monocytes Percent Auto 14.3 % (2.6-8.5); Neutrophils Percent Auto 68.1 % (45.5-73.1); Nucleated Red Blood Cells Perc 0.3 % (0.0-0.2); Platelet Count Result 282 k/mm3 (150-375); Red Blood Count 3.89 M/mm3 (4.2-5.4); Red Cell Distribution Width 17.7 % (11.5-14.5); White Blood Count 8.8 K/mm3 (4.5-10.0)
[2023-07-03 16:35] LABS: Alanine Aminotransferase 23 U/L (6-35); Albumin Level 3.4 g/dL (3.5-5.1); Alkaline Phosphatase 80 U/L (38-126); Anion Gap 12 mmol/L (8-16); Aspartate Amino Transferase 24 U/L (14-36); Bilirubin,Total 0.4 mg/dL (0.2-1.3); Blood Urea Nitrogen 13 mg/dL (7-17); Carbon Dioxide 19 mmol/L (22-30); Chloride 106 mmol/L (98-107); Estimated CRCL calculation 61 ml/min; Estimated Glomerular Filt Rate 43; Glucose 96 mg/dL (65-110); Potassium 3.5 mmol/L (3.4-5.0); Sodium 137 mmol/L (137-145)
[2023-07-03 16:41] LABS: Hypochromasia 1+ (NORMAL); Ovalocytes 1+ (NORMAL); Platelet Estimate Adequate (Adequate); Schistocytes None Seen (NORMAL)
[2023-07-03] MEDS: LACTATED RINGERS 1,000 ML 125 ML IV CONT (17:14)
[2023-07-03 20:12] VITALS: BP 178/78; PULSE 69; RESP 20; TEMP 36.6; O2SAT 100
[2023-07-04] VITALS (10 sets, daily range): BP systolic 148–170; BP diastolic 51–85; PULSE 60–84; RESP 18–20; TEMP 36.2–36.8; O2SAT 96–100
[2023-07-04] MEDS: fentaNYL CITRATE INJ (*CRX) 100 MCG/2 ML VIAL 50 MCG IV PUSH ×2 (01:03→11:53)
[2023-07-04] MEDS: ONDANSETRON INJ 4 MG/2 ML VIAL IV PUSH ×2 (01:03→17:27)
[2023-07-04] MEDS: LACTATED RINGERS 1,000 ML 125 ML IV CONT ×3 (01:09→23:27)
[2023-07-04] MEDS: allopurinoL 100 MG TABLET PO (08:12)
[2023-07-04] MEDS: METOPROLOL TARTRATE 25 MG TABLET PO (08:12)
[2023-07-04] MEDS: ATORVASTATIN 20 MG TABLET PO (08:12)
[2023-07-04] MEDS: lisinopriL 20 MG TABLET 40 MG PO (08:12)
--- NOTE | 2023-07-04 08:28 | PM.IMHP ---
H&P: HPI History of Present Illness Date/Time: 07/04/23 08:28 Chief Complaint: Vaginal Narrative: this patient is a 52-year-old female who presented the office with heavy vaginal bleeding and symptoms of anemia. She has fatigue, shortness of breath. She has persistent heavy vaginal bleeding. She also has some nausea and vomiting. She denies any chest pain or shortness of breath. She denies any fevers or chills. Patient is scheduled for endometrial ablation tomorrow. She has a long history of heavy vaginal bleeding. Review of Systems Review of Systems: All systems reviewed & are unremarkable except as noted in HPI and below Constitutional: Constitutional: Denies chills, Denies fatigue, Denies fever(s) and Denies weakness Eyes: Eyes: Denies blurry vision, Denies change in vision, Denies loss of peripheral vision, Denies loss of vision, Denies other visual disturbances and Denies eye pain ENT: Denies vertigo, Denies dizziness, Denies hearing loss, Denies mouth pain, Denies nasal obstruction, Denies neck mass and Denies neck pain Cardiovascular: Cardiovascular: Denies chest pain, Denies diaphoresis, Denies syncope, Denies leg edema and Denies dyspnea Respiratory: Respiratory: Denies chest congestion, Denies cough, Denies hemoptysis, Denies dyspnea and Denies wheezing Gastrointestinal: Gastrointestinal: Denies abdominal pain, Denies constipation, Denies diarrhea, Denies nausea and Denies vomiting Genitourinary: Genitourinary: Denies hematuria, Denies change in libido, Denies nocturia, Denies genital lesions, Denies flank pain and Denies urinary urgency Musculoskeletal: Musculoskeletal: Denies abnormal gait, Denies back pain, Denies myalgias, Denies arthralgias, Denies joint swelling, Denies muscle weakness and Denies neck pain Integumentary/Breasts: Skin/Breast: Denies swelling, Denies breast pain, Denies breast mass, Denies dry skin, Denies nipple discharge, Denies unusual bruising and Denies jaundice Neurologic: Denies Neuro-related abnormal movements, Denies Abnormal speech present, Denies abnormal gait, Denies behavioral changes, Denies confusion, Denies vertigo, Denies dizziness, Denies syncope, Denies loss of vision, Denies memory loss, Denies convulsions and Denies weakness Psychiatric: Psychiatric: Denies abnormal sleep pattern, Denies behavioral changes, Denies change in libido, Denies confusion, Denies depression, Denies anhedonia and Denies memory loss Endocrine: Endocrine: Reports no additional endocrine complaints, Denies change in libido and Denies fatigue Hematologic/Lymphatic: Hematologic/Lymphatic: Reports no additional hematologic/lymphatic complaints Allergic/Immunologic: Allergic/Immunologic: Reports no additional allergic/immunologic complaints and Denies wheezing PMFSH Past Medical History Medical History CLL (chronic lymphocytic leukemia) DVT (deep venous thrombosis) History of arterial occlusion History of endometrial biopsy Hypertension Nicotine dependence, cigarettes, uncomplicated Obesity Pyoderma gangrenosa Superficial granulomatous pyoderma Vasculitis Surgical History Surgical History History of adenoidectomy Hx of tonsillectomy Family History Family History Father COPD (chronic obstructive pulmonary disease) Grandparent Colon cancer Sibling Pancreatic cancer Social History Social History Smoking packs per day: 0.5 Smoking cigarettes per day: 10.0 Years smoked: 35 Smoking pack-years: 17.50 Smoking status: Current every day smoker Tobacco type: cigarettes Alcohol intake: former Substance use: never Substance use type: marijuana Other substance usage details: IN HER 20'S Lack of Transportation: No Lack of Food: Never True Current Housing: I
[2023-07-04] MEDS: ESTROGENS, CONJUGATED 25 MG/5 ML VIAL IM ×2 (09:26→15:25)
[2023-07-04] MEDS: fentaNYL CITRATE INJ (*CRX) 100 MCG/2 ML VIAL IV PUSH ×4 (13:42→23:27)
--- NOTE | 2023-07-04 14:57 | PM.IMCN ---
Assessment and Plan Assessment and plan (1) Menorrhagia: Code(s): N92.0 - Excessive and frequent menstruation with regular cycle Status: Acute (2) Symptomatic anemia: Code(s): D64.9 - Anemia, unspecified Status: Acute (3) DVT (deep venous thrombosis): Code(s): I82.409 - Acute embolism and thrombosis of unspecified deep veins of unspecified lower extremity Status: Acute (4) CKD (chronic kidney disease) stage 3, GFR 30-59 ml/min: Code(s): N18.30 - Chronic kidney disease, stage 3 unspecified Status: Acute (5) CLL (chronic lymphocytic leukemia): Code(s): C91.10 - Chronic lymphocytic leukemia of B-cell type not having achieved remission Status: Acute (6) PAD (peripheral artery disease): Code(s): I73.9 - Peripheral vascular disease, unspecified Status: Acute (7) History of arterial occlusion: Code(s): Z86.79 - Personal history of other diseases of the circulatory system Status: Acute (8) Hypertension: Qualifiers: Hypertension type: unspecified Qualified Code(s): I10 - Essential (primary) hypertension Code(s): I10 - Essential (primary) hypertension Status: Acute Plan # symptomatic anemia plan for transfusion 1 unit of PRBC today. # history of chronic lymphocytic leukemia follows with Oncology and in remission bone marrow biopsy done recently which was negative # acute on chronic blood-loss anemia due to menorrhagia # menorrhagia gynecology managing. Plan for endometrial ablation in a.m.. If not resolving plan for hysterectomy CT abdomen with enlarged uterus. # CKD stage 3 stable # hypertension resume home medication # hyperlipidemia on atorvastatin # gout on allopurinol # history of DVT in the past was on Eliquis now off since anemia and menorrhagia. Follow-up with Hematology-Oncology # history of peripheral vascular disease used to be on aspirin Plavix now off since anemia and menorrhagia. Follow up with his Hematology-Oncology HPI Data of Consult Consult date: 07/04/23 Requesting Physician: Migdalia Wilson MD Primary Care Provider: Ari Elmore DO Consult Narrative Narrative: Nicole Hamilton is a 52 year old female who presented with ongoing anemia and heavy vaginal bleeding. Associated shortness of breath and fatigue. Was seen in the office yesterday and was sent for admission for further workup. She is scheduled for endometrial ablation tomorrow. She does have history of endometrial ablation done few months ago. She has a history of chronic lymphocytic leukemia for which she had been treated and in remission. She follows up with oncologist regularly. 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 Ultrasound pelvis and CT abdomen has revealed large uterus. Her hemoglobin on admission was 8.9 is planned to get transfusion. She is also getting started on estrogen therapy and is planned to do endometrial ablation tomorrow. She is planned to discharge after the transfusion later today. Review of Systems Review of Systems: - CONSTITUTIONAL: Denies weight loss, fever and chills. - HEENT: Denies changes in vision and hearing - RESPIRATORY: Denies SOB and cough. - CV: Denies palpitations and CP. - GI: Denies abdominal pain, nausea, vomiting and diarrhea. - : Denies dysuria and urinary frequency. - MSK: Denies myalgia and joint pain. Complains of back pain - SKIN: Denies rash and pruritus. - NEUROLOGICAL: Denies headache and syncope. - PSYCHIATRIC: Denies recent changes in mood. Denies anxiety and depression. [facility] Past Medical History Medical History CLL (chronic lymphocytic leukemia) DVT (deep venous thrombosis) History of arterial occlusion History of endometrial biopsy Hypertension Nicotine dependence, cigarettes, uncomplicated Obesity Pyo
[2023-07-04 20:34] LABS: Hematocrit 28.8 % (37.0-47.0); Hemoglobin 8.7 g/dL (12.0-15.0)
[2023-07-05] VITALS (16 sets, daily range): BP systolic 117–171; BP diastolic 53–88; PULSE 64–77; RESP 12–20; TEMP 36.3–37.1; O2SAT 90–99
[2023-07-05] MEDS: fentaNYL CITRATE INJ (*CRX) 100 MCG/2 ML VIAL IV PUSH ×4 (02:18→23:10)
[2023-07-05] MEDS: allopurinoL 100 MG TABLET PO (08:24)
[2023-07-05] MEDS: lisinopriL 20 MG TABLET 40 MG PO (08:24)
[2023-07-05] MEDS: ATORVASTATIN 20 MG TABLET PO (08:24)
--- NOTE | 2023-07-05 10:31 | PN_ITS ---
This report was moved to the correct visit on 07/06/2023. Original report was signed by Chuck Perales II, MD on 07/05/23 1031. Anes - Initial Pre Proc Eval Procedure: Operation Date: 07/05/23 12:30 Proposed Procedures p Hysteroscopy with Keren Endometrial Ablation - Migdalia Wilson MD Date/Time: 07/05/23 10:30 Surgeon: Migdalia Wilson MD Pre Op Diagnosis: menorrhagia Patient Data Age: 52 Gender: F Height: 1.68 m Weight: 120 kg Allergies Allergy/AdvReac Type Severity Reaction Status Date / Time gentian jake Allergy Rash Verified 06/29/23 14:42 Tetracyclines AdvReac Other Verified 06/29/23 14:42 Home Medications Medication Instructions Recorded Confirmed Type allopurinol 100 mg tablet 100 mg PO DAILY #90 tabs 01/26/23 07/03/23 Rx atorvastatin 20 mg tablet 20 mg PO DAILY #90 tabs 01/26/23 07/03/23 Rx lisinopril 40 mg tablet 40 mg PO DAILY #90 tabs 03/24/23 07/03/23 Rx cefdinir 300 mg capsule 300 mg PO Q12H #10 caps 06/27/23 07/03/23 Rx leuprolide 3.75 mg intramuscular 3.75 mg IM MONTHLY 06/29/23 07/03/23 History syringe kit (Lupron Depot) metoprolol tartrate 25 mg tablet 25 mg PO DAILY 06/29/23 07/03/23 History norethindrone acetate 5 mg tablet 5 mg PO DAILY 06/29/23 07/03/23 History Patient hx anesthesia problems: none Family hx anesthesia problems: none Results Review: All pre-operative results and documents have been reviewed as part of the pre- operative evaluation. FORMERLY [facility] Past Medical History Medical History CLL (chronic lymphocytic leukemia) DVT (deep venous thrombosis) History of arterial occlusion History of endometrial biopsy Hypertension Nicotine dependence, cigarettes, uncomplicated Obesity Pyoderma gangrenosa Superficial granulomatous pyoderma Vasculitis Surgical History Surgical History History of adenoidectomy Hx of tonsillectomy Family History Family History Father COPD (chronic obstructive pulmonary disease) Grandparent Colon cancer Sibling Pancreatic cancer Social History Social History Smoking packs per day: 0.5 Smoking cigarettes per day: 10.0 Years smoked: 35 Smoking pack-years: 17.50 Smoking status: Current every day smoker Tobacco type: cigarettes Alcohol intake: former Substance use: never Substance use type: marijuana Other substance usage details: IN HER 20'S Lack of Transportation: No Lack of Food: Never True Current Housing: I Have Housing Concerned About Future Housing: No Difficulty Paying Gas/Electric Bills: No Difficulty Paying for Meds: No Currently Unemployed: No Education: Associate Degree Difficulty w/ Childcare or Family Care: No Living arrangements: with family Occupation/Education: occupation Additional occupation/education comments: [employer] Spiritual care concerns: No Anes - Eval Final PreProcedure Day of Procedure 07/05/23 10:30 Patient weight: morbidly obese Heart: regular rate and rhythm Lungs: clear to auscultation Airway: Mallampati scale class III Neurological: alert and oriented Last oral intake: >/= 8 hours ASA classification: IV Emergent: no Anesthetic plan: proceed Anesthesia type and monitoring: general GIVS and standard monitoring Results Review: All pre-operative results and documents have been reviewed as part of the pre- operative evaluation.
--- NOTE | 2023-07-05 11:32 | WPDHPUPDATE1 ---
History and Physical Update Update Date/Time: 07/05/23 11:32 52 year old female with severe menorrhagia. She had been admitted for anemia, nausea vomiting, pain. She remained in the hospital longer than expected and is here now. We will proceed with scheduled endometrial ablation with hysteroscopy there is an H and P regarding this in the chart. History and Physical has been reviewed, including an updated exam of the patient. There are NO changes in the patient's condition. Risks, benefits, and alternatives have been discussed and questions answered. Patient agrees to proceed with procedure.
--- NOTE | 2023-07-05 11:33 | PM.GYNPNOP ---
EMAIL MARKETER - A/P Postoperative Procedures: Procedures Operation Date: 07/05/23 12:30 <No data on this case meets the specified criteria> Time Spent With Patient Time: Total time spent is greater than 50% in coordination of care (as documented) at patient's floor/unit and/or counseling patient: Time with patient: less than 15 minutes EMAIL MARKETER- PN:Subj Post-Op Subjective Date/time seen: 07/05/23 11:33 updated paper H&P placed in the chart. 52-year-old with severe menorrhagia. Are going to proceed endometrial ablation that was schedule. She was admitted 2 days ago for anemia, nausea vomiting, and pain. She has been transfused 1 unit packed red blood cells. EMAIL MARKETER - PN: Obj Data Vital Signs Vital Signs: Vital Signs - 24 hr 07/04/23 11:34 07/04/23 11:49 07/04/23 12:49 Temperature 98.1 F 97.1 F L 98.2 F Pulse Rate 65 64 64 Respiratory Rate 20 18 18 Blood Pressure 158/68 H 151/72 H 148/65 H Pulse Oximetry 99 100 98 Oxygen Delivery 07/04/23 13:49 07/04/23 14:00 07/04/23 14:49 Temperature 98.1 F 98.1 F 97.1 F L Pulse Rate 60 60 73 Respiratory Rate 18 18 18 Blood Pressure 155/73 H 155/73 H 170/81 H Pulse Oximetry 97 97 97 Oxygen Delivery 07/04/23 15:49 07/04/23 20:18 07/05/23 04:01 Temperature 98.3 F 97.6 F 97.9 F Pulse Rate 73 75 72 Respiratory Rate 18 20 20 Blood Pressure 168/60 H 161/51 H 136/64 Pulse Oximetry 98 96 96 Oxygen Delivery 07/05/23 08:00 Temperature Pulse Rate 72 Respiratory Rate 20 Blood Pressure Pulse Oximetry 96 Oxygen Delivery Room Air Intake/Output Intake/Output: Intake & Output 07/02/23 07/03/23 07/04/23 07/05/23 23:59 23:59 23:59 23:59 Intake Total 350 4830 390 Balance 350 4830 390 Meds/Results Medications: Active Medications Generic Name Dose Route Start Last Admin Trade Name Freq PRN Reason Stop Dose Admin Allopurinol 100 mg 07/04/23 09:00 07/05/23 08:24 Allopurinol 100 Mg Tablet PO 100 mg DAILY ANA Administration Atorvastatin Calcium 20 mg 07/04/23 09:00 07/05/23 08:24 Atorvastatin 20 Mg Tablet PO 20 mg DAILY ANA Administration Fentanyl Citrate 100 mcg 07/04/23 13:32 07/05/23 11:00 Fentanyl Citrate Inj (*Crx) 100 Mcg/2 Ml Vial IV PUSH 100 mcg Q2HR PRN Administration Pain Rated 7-10 Lactated Ringer's 1,000 mls @ 125 mls/hr 07/03/23 15:40 07/04/23 23:27 Lr - Lactated Ringers Iv IV CONT 125 mls/hr .Q8H ANA Administration Lisinopril 40 mg 07/04/23 09:00 07/05/23 08:24 Lisinopril 20 Mg Tablet PO 40 mg DAILY ANA Administration Metoprolol Tartrate 25 mg 07/04/23 09:00 07/05/23 08:25 Metoprolol Tartrate 25 Mg Tablet PO Not Given DAILY ANA Ondansetron HCl 4 mg 07/04/23 00:50 07/04/23 17:27 Ondansetron Inj 4 Mg/2 Ml Vial IV PUSH 4 mg Q6H PRN Administration Nausea And Vomiting Labs 07/04/23 20:24 07/03/23 16:11 Labs: Laboratory Results - last 24 hr 07/04/23 07/04/23 08:40 20:24 Hgb 8.7 L Hct 28.8 L Blood Type A Positive Antibody Screen Negative Crossmatch See Detail
[2023-07-05] MEDS: LACTATED RINGERS 1,000 ML 30 ML IV CONT (11:45)
[2023-07-05] MEDS: LIDOCAINE HCL 1% LOCAL INJ 20 ML VIAL 10 ML INFILTRATE (12:27)
--- NOTE | 2023-07-05 13:03 | W.PM.PROC2 ---
Procedure Note - Detailed Date of Procedure 07/05/23 Pre-op Diagnosis Anemia/Abdominal Pain Post-op Diagnosis Same Procedure Performed endometrial ablation with hysteroscopy d&c Surgeon Migdalia Wilson MD Anesthesia MAC Indications Severe menorrhagia Findings Normal vulva vagina and cervix. Normal endometrium. Description of Procedure The patient was taken to the operating room. She was prepped and draped in the dorsal lithotomy position after induction of mac anesthesia. A speculum was placed in the vagina. Cervix grasped with a tenaculum. The cervix was dilated to about 1 cm. The hysteroscope was inserted. The above findings were noted. Endometrial curettage was performed with a medium-size curette. All surfaces of the endometrium were affected by the curettage. The specimens were collected and sent to pathology. Measurements were taken of the uterus and cervix. The uterine length was then entered into the hand piece of the Keren device. The device was inserted into the intrauterine cavity. The array of the device was expanded. The balloon cuff was inflated. A good seal was achieved. The energy and safety cycles were initiated and completed. The array was collapsed and the instrument was withdrawn after deflating the balloon cuff. Hysteroscope was reinserted. Above findings were noted. The hysteroscope was removed. The patient tolerated the procedure well. The speculum and tenaculum were removed. She was taken to recovery in stable condition. Sponge lap and needle counts were correct x2. Estimated Blood Loss -25.0 Pathology Yes Complications No immediate complications Condition Stable Disposition Same day
--- NOTE | 2023-07-05 13:11 | SUR.PHASEI ---
1310 - dr. merritt at bedside talking with pt
[2023-07-05] MEDS: fentaNYL CITRATE INJ (*CRX) 100 MCG/2 ML VIAL 25 MCG IV PUSH ×4 (14:00→14:14)
[2023-07-05 14:04] LABS: Basophils Absolute Auto 0.1 K/mm3 (0.0-0.1); Eosinophils Absolute Auto 0.1 K/mm3 (0-0.3); Eosinophils Percent Auto 0.9 % (0-4.4); Hematocrit 30.7 % (37.0-47.0); Hemoglobin 9.2 g/dL (12.0-15.0); Immature Granulocyte Absolute 0.08 K/mm3 (0.00-0.031); Immature Granulocyte Percent A 1.2 % (0-0.5); Lymphocytes Absolute Auto 1.26 K/mm3 (0.9-3.2); Lymphocytes Percent Auto 18.2 % (18.3-44.2); Mean Corpuscular Hemoglobin 23.5 pg (26-34); Mean Corpuscular Volume 78.3 fl (80-100); Mean Platelet Volume 9.9 fl (7.4-10.4); Monocytes Absolute Auto 0.8 K/mm3 (0.1-0.6); Monocytes Percent Auto 11.8 % (2.6-8.5); Neutrophils Absolute Auto 4.6 K/mm3 (1.3-6.7); Neutrophils Percent Auto 66.9 % (45.5-73.1); Nucleated Red Blood Cells Perc 0.6 % (0.0-0.2); Platelet Count Result 281 k/mm3 (150-375); Red Blood Count 3.92 M/mm3 (4.2-5.4); Red Cell Distribution Width 17.7 % (11.5-14.5); White Blood Count 6.9 K/mm3 (4.5-10.0)
--- NOTE | 2023-07-05 14:18 | SUR.PHASEI ---
1415 - H&H 9.2-30.7. Dr. Wilson aware. discontinued previous blood transfusion order
--- NOTE | 2023-07-05 14:58 | PC.NURSE ---
report received from PACU - pt does not need additional PRBC transfusion H&H stable at 9.2/30.7.
[2023-07-05 15:39] LABS: Anion Gap 6 mmol/L (8-16); Blood Urea Nitrogen 8 mg/dL (7-17); Calcium 7.8 mg/dL (8.4-10.2); Carbon Dioxide 28 mmol/L (22-30); Chloride 103 mmol/L (98-107); Estimated CRCL calculation 71 ml/min; Estimated Glomerular Filt Rate 53; Glucose 91 mg/dL (65-110); Potassium 2.9 mmol/L (3.4-5.0); Sodium 137 mmol/L (137-145)
[2023-07-05 15:42] LABS: INR 1.1; Prothrombin Time 14.7 Seconds (11.1-14.7)
[2023-07-05 15:43] LABS: Partial Thromboplastin Time 30.6 SECONDS (22.3-36.8)
--- NOTE | 2023-07-05 16:24 | PN_ITS ---
This report was moved to the correct visit on 07/06/2023. Original report was signed by Israel Pina on 07/05/23 1849. Progress Note: A&P Assessment and Plan (1) Menorrhagia: Code(s): N92.0 - Excessive and frequent menstruation with regular cycle Status: Acute (2) Anemia: Code(s): D64.9 - Anemia, unspecified Status: Acute (3) DVT (deep venous thrombosis): Code(s): I82.409 - Acute embolism and thrombosis of unspecified deep veins of unspecified lower extremity Status: Acute (4) CLL (chronic lymphocytic leukemia): Code(s): C91.10 - Chronic lymphocytic leukemia of B-cell type not having achieved remission Status: Acute (5) PAD (peripheral artery disease): Code(s): I73.9 - Peripheral vascular disease, unspecified Status: Acute (6) Hypertension: Qualifiers: Hypertension type: unspecified Qualified Code(s): I10 - Essential (primary) hypertension Code(s): I10 - Essential (primary) hypertension Status: Acute (7) CLL (chronic lymphocytic leukemia): Code(s): C91.10 - Chronic lymphocytic leukemia of B-cell type not having achieved remission Status: Acute Plan # symptomatic anemia plan for transfusion 1 unit of PRBC Hemoglobin is 9.2 July 05 # history of chronic lymphocytic leukemia follows with Oncology and in remission bone marrow biopsy done recently which was negative # acute on chronic blood-loss anemia due to menorrhagia # menorrhagia gynecology managing.? Patient underwent endometrial ablation today. If not resolving plan for hysterectomy CT abdomen with enlarged uterus.? # CKD stage 3 stable # hypertension resume home medication. Uncontrolled hypertension, optimize pain management. Monitor blood pressure closely # hyperlipidemia on atorvastatin # gout on allopurinol # history of DVT in the past was on Eliquis now off since anemia and menorrhagia.? Follow-up with Hematology-Oncology # history of peripheral vascular disease used to be on aspirin Plavix now off since anemia and menorrhagia.? Follow up with his Hematology-Oncology Subjective Date/time seen: 07/05/23 16:19 Interval history: I saw and examined patient today. Patient underwent endometrial ablation under general anesthesia. Patient denies chest pain, shortness of breath. Abdomen pain, nausea vomiting Exam Narrative: GENERAL: Pleasant, in no acute distress. Well-nourished. - EYES: EOMI. Anicteric. - HENT: Moist mucous membranes. - LUNGS: Clear to auscultation bilateral ly, no wheezing, rhonchi, or rales. - CARDIOVASCULAR: Regular rate and rhyth m. No murmur. No JVD. - ABDOMEN: Soft, non-tender and non-dist ended. No palpable masses. - EXTREMITIES: No edema. Peripheral puls es 2+. Non-tender. - NEUROLOGIC: No focal neurological defi cits. CN II-XII grossly intact. - PSYCHIATRIC: Awake, Alert and oriented x 3. Appropriate mood and affect. - SKIN: No rashes or lesions. Warm. - LYMPH: No cervical lymphadenopathy. Objective Data Meds/Results Medications: Active Medications Generic Name Dose Route Start Last Admin Trade Name Freq PRN Reason Stop Dose Admin Fentanyl Citrate 25 mcg 07/05/23 10:29 Fentanyl Citrate Inj (*Crx) 100 Mcg/2 Ml Vial IV PUSH Q2M PRN Pain L
[2023-07-05] MEDS: POTASSIUM CHLORIDE INJ 40 MEQ in SODIUM CHLORIDE 0.9% IV 500 ML 130 MEQ IVPB (23:05)
[2023-07-06] MEDS: fentaNYL CITRATE INJ (*CRX) 100 MCG/2 ML VIAL IV PUSH ×2 (03:30→08:17)
[2023-07-06 06:00] VITALS: BP 151/86; PULSE 85; RESP 18; TEMP 36.7; O2SAT 97
--- NOTE | 2023-07-06 07:51 | PM.GYNPNOP ---
CLINICAL TRIALS MANAGER - A/P Assessment and plan (1) Menorrhagia: Code(s): N92.0 - Excessive and frequent menstruation with regular cycle Status: Acute (2) Anemia: Code(s): D64.9 - Anemia, unspecified Status: Acute Plan Patient continues to bleed, casing soaker bleeding, has back pain and left-sided lower abdominal pain, crampy, likely uterine, nausea associated with the pain, patient desires discharge, she is stable, we agreed to move forward with hysterectomy. She has significant pain and she will need pain medication for outpatient Postoperative Procedures: Procedures Operation Date: 07/05/23 12:30 Actual Procedure Side Surgeon p Hysteroscopy with Keren Endometrial Ablation Not Applicable Migdalia Wilson MD Time Spent With Patient Time: Total time spent is greater than 50% in coordination of care (as documented) at patient's floor/unit and/or counseling patient: Time with patient: 15 - 25 minutes CLINICAL TRIALS MANAGER- PN:Subj Post-Op Subjective Date/time seen: 07/06/23 07:51 Patient continues to bleed, casing soaker bleeding, has back pain and left-sided lower abdominal pain, crampy, likely uterine, nausea associated with the pain, patient desires discharge, she is stable, we agreed to move forward with hysterectomy. She has significant pain and she will need pain medication for outpatient. Exam Const: General: cooperative, healthy appearing, comfortable and no acute distress Orientation/consciousness: oriented to person, oriented to place and oriented to time HENMT: Head: normal to inspection Ears: external ears normal Face/Nose/Sinus: Normal external nose present and normal facial exam Face and sinus: normal facial exam Eyes: General: appearance normal, both eyes and all related structures Neck: Neck: normal visual inspection, trachea midline and supple Resp: Auscultation: clear to auscultation bilaterally, no crackles, no rales, no rhonchi and no wheezes Cardio: Rate: regular rate Rhythm: regular rhythm Heart sounds: no click, no murmurs and no rubs GI: GI Palp: No abdominal tenderness, No Soft to palpation, No Tenderness to palpation present (GI) and No Palpable mass present Auscultation: normal bowel sounds Skin: General skin exam: normal color and no rashes or lesions noted Neuro: General: oriented to person, oriented to place and oriented to time Extrem: General: normal to inspection, no joint enlargement, no clubbing, cyanosis or edema, no pedal edema and no calf tenderness Psych: Appearance: grossly normal Mental Status: mental status grossly normal Speech and movement: Normal speech and movement present CLINICAL TRIALS MANAGER - PN: Obj Data Vital Signs Vital Signs: Vital Signs - 24 hr 07/05/23 08:00 07/05/23 12:00 07/05/23 12:56 Temperature 98.8 F 98.2 F Pulse Rate 72 70 71 Respiratory Rate 20 20 20 Blood Pressure 132/74 117/71 Pulse Oximetry 96 95 99 Oxygen Delivery Room Air Room Air Room Air 07/05/23 13:10 07/05/23 13:25 07/05/23 13:40 Temperature Pulse Rate 69 68 67 Respiratory Rate 20 20 20 Blood Pressure 137/74 154/88 H 167/78 H Pulse Oximetry 94 94 94 Oxygen Delivery Room Air Room Air Room Air 07/05/23 13:55 07/05/23 14:10 07/05/23 14:25 Temperature Pulse Rate 68 69 64 Respiratory Rate 14 20 12 Blood Pressure 164/80 H 160/80 H 165/79 H Pulse Oximetry 90 92 94 Oxygen Delivery Room Air Room Air Room Air 07/05/23 14:40 07/05/23 15:09 07/05/23 15:25 Temperature 98.4 F 98.1 F Pulse Rate 70 64 74 Respiratory Rate 12 16 18 Blood Pressure 171/81 H 155/79 H 159/76 H Pulse Oximetry 96 97 95 Oxygen Delivery Room Air 07/05/23 15:55 07/05/23 17:04 07/05/23 20:00 Temperature 98.3 F 97.3 F L Pulse Rate 76 76 Respiratory Rate 18 14 Blood Pressure 150/82 H 148/84 H Pulse Oximetry 97 94 Oxygen Delivery Room Air 07/05/23 23:13 07/06/23 06:00 Temperature 98.1 F 98.1 F Pulse Rate 77 85 Respiratory Rate 16 18 Blood Pressure 122/53 L 151/86 H Pulse Oximetry 93 97 Oxygen Deliv
--- NOTE | 2023-07-06 08:01 | PM.DS ---
DS: Admitting Diagnosis Discharge Date July 06 2023 Admitting Diagnosis vaginal bleeding, anemia DS: Discharge Diagnosis Discharge Diagnosis (1) Menorrhagia: Code(s): N92.0 - Excessive and frequent menstruation with regular cycle Status: Acute (2) Anemia: Code(s): D64.9 - Anemia, unspecified Status: Acute DS: Summary Hospital Course Hospital Course: 52-year-old female who was admitted for vaginal bleeding and anemia. She was admitted for transfusion, she stayed additional days and had endometrial ablation that was scheduled prior to the admission. She continues to have some bleeding and the ablation. She has some pain. She has been stable throughout her stay but has had nausea associated with the pain. She has been seen by the medicine team. They have addressed and monitor some of her medical issues Time Spent with Patient Time attestation: Total time spent providing and/or coordinating discharge services: DS: Data Data Completed and Pending Pending studies at discharge: Pending at discharge 07/05/23 11:59 Surgical [PTH] Routine Labs on day of discharge: Labs from last 24 hours 07/05/23 07/05/23 07/04/23 15:08 13:57 08:40 WBC 6.9 RBC 3.92 L Hgb 9.2 L Hct 30.7 L MCV 78.3 L MCH 23.5 L MCHC 30.0 L RDW 17.7 H Plt Count 281 MPV 9.9 Immature Gran % (Auto) 1.2 H Neut % (Auto) 66.9 Lymph % (Auto) 18.2 L [place] % (Auto) 11.8 H Eos % (Auto) 0.9 Baso % (Auto) 1.0 Lymph # (Auto) 1.26 [place] # (Auto) 0.8 H Eos # (Auto) 0.1 Baso # (Auto) 0.1 Abs Immat Gran (auto) 0.08 H Absolute Neuts (auto) 4.6 Absolute Nucleated RBC 0.0 Nucleated RBC % 0.6 H PT 14.7 INR 1.1 APTT 30.6 Sodium 137 Potassium 2.9 L Chloride 103 Carbon Dioxide 28 Anion Gap 6 L BUN 8 D Creatinine 1.10 H Estim Creat Clear Calc 71 Estimated GFR 53 L Glucose 91 Calcium 7.8 L Blood Type A Positive Antibody Screen Negative Crossmatch See Detail Discharge Plan Discharge Consulting providers: Mor Doe Discharging Clinician: Migdalia Wilson Patient Disposition: Home, Self-Care Activity: pelvic rest Diet: regular Patient Instructions: Antibiotic Form, How to Stop Smoking (DC), Cigarette Smoking and Your Health (GEN) Stand Alone Forms: General Discharge Information Follow-up/Referrals: Migdalia Wilson MD [Physician] - Discharge Medications: New hydrocodone-acetaminophen 5-325 mg tablet 1 tablet PO Q4H PRN (Reason: pain) Qty: 25 0RF Continued cefdinir 300 mg capsule 300 mg PO Q12H Qty: 10 0RF metoprolol tartrate 25 mg Tablet 25 mg PO DAILY Lupron Depot 3.75 mg syringe kit 3.75 mg IM MONTHLY norethindrone acetate 5 mg tablet 5 mg PO DAILY atorvastatin 20 mg tablet 20 mg PO DAILY Qty: 90 1RF allopurinol 100 mg tablet 100 mg PO DAILY Qty: 90 1RF lisinopril 40 mg tablet 40 mg PO DAILY Qty: 90 2RF Date of admission: 07/05/23 12:06 Primary Care Provider: Ari Elmore Admitting Provider: Migdalia Wilson Attending physician on admission: Migdalia Wilson Condition: Stable
--- NOTE | 2023-07-06 08:01 | PM.IMPN ---
Progress Note: A&P Assessment and Plan (1) Menorrhagia: Code(s): N92.0 - Excessive and frequent menstruation with regular cycle Status: Acute (2) Symptomatic anemia: Code(s): D64.9 - Anemia, unspecified Status: Acute (3) DVT (deep venous thrombosis): Code(s): I82.409 - Acute embolism and thrombosis of unspecified deep veins of unspecified lower extremity Status: Acute (4) CKD (chronic kidney disease) stage 3, GFR 30-59 ml/min: Code(s): N18.30 - Chronic kidney disease, stage 3 unspecified Status: Acute (5) CLL (chronic lymphocytic leukemia): Code(s): C91.10 - Chronic lymphocytic leukemia of B-cell type not having achieved remission Status: Acute (6) PAD (peripheral artery disease): Code(s): I73.9 - Peripheral vascular disease, unspecified Status: Acute (7) History of arterial occlusion: Code(s): Z86.79 - Personal history of other diseases of the circulatory system Status: Acute (8) Hypertension: Qualifiers: Hypertension type: unspecified Qualified Code(s): I10 - Essential (primary) hypertension Code(s): I10 - Essential (primary) hypertension Status: Acute Plan # symptomatic anemia plan for transfusion 1 unit of PRBC today. # history of chronic lymphocytic leukemia follows with Oncology and in remission bone marrow biopsy done recently which was negative # acute on chronic blood-loss anemia due to menorrhagia Follow iron marginally low, saturations normal ferritin level within normal limits. Hemoglobin is trending up, hemoglobin 10.4 today # menorrhagia gynecology managing. Status post endometrial ablation d1 . If not resolving plan for hysterectomy CT abdomen with enlarged uterus. # CKD stage 3 stable Hypokalemia, improving, 2.9 yesterday, 3.3 today. Provide potassium chloride 40 mg once p.o. # hypertension resume home medication # hyperlipidemia on atorvastatin # gout on allopurinol # history of DVT in the past was on Eliquis now off since anemia and menorrhagia. Follow-up with Hematology-Oncology # history of peripheral vascular disease used to be on aspirin Plavix now off since anemia and menorrhagia. Follow up with his Hematology-Oncology Patient is afebrile, hemodynamically stable. Patient is okay for discharge Subjective Date/time seen: 07/06/23 08:01 Interval history: I saw and examined patient today, patient is feeling better, still has some abdominal pain. Denies nausea vomiting diarrhea chest pain, palpitation, focal weakness Exam Narrative: GENERAL: The patient is well developed, not in acute distress HEENT: Nonicteric sclerae, PERRLA, EOMI. Oropharynx clear. Moist mucous membranes. Conjunctivae appear well perfused. CHEST: Chest wall is nontender. HEART: Regular rate and rhythm without murmur, rubs, or gallops LUNGS: Clear to auscultation bilaterally. no respiratory distress ABDOMEN: Soft, positive bowel sounds, non-tender, no organomegaly. SKIN: No rash, no excessive bruising, petechiae, or purpura. NEUROLOGIC: Cranial nerves II-XII intact, alert and oriented x 3, no gross motor deficits EXTREMITIES: no edema, cyanosis or clubbing Objective Data Vital Signs Vital Signs: Vital Signs - 24 hr 07/05/23 12:00 07/05/23 12:56 07/05/23 13:10 Temperature 98.8 F 98.2 F Pulse Rate 70 71 69 Respiratory Rate 20 20 20 Blood Pressure 132/74 117/71 137/74 Pulse Oximetry 95 99 94 Oxygen Delivery Room Air Room Air Room Air 07/05/23 13:25 07/05/23 13:40 07/05/23 13:55 Temperature Pulse Rate 68 67 68 Respiratory Rate 20 20 14 Blood Pressure 154/88 H 167/78 H 164/80 H Pulse Oximetry 94 94 90 Oxygen Delivery Room Air Room Air Room Air 07/05/23 14:10 07/05/23 14:25 07/05/23 14:40 Temperature Pulse Rate 69 64 70 Respiratory Rate 20 12 12 Blood Pressure 160/80 H 165/79 H 171/81 H Pulse Oximetry 92 94 96 Oxygen Delivery Room Air Room Air Room Air 07/05/23 15:09
[2023-07-06 08:06] LABS: Hematocrit 34.8 % (37.0-47.0); Hemoglobin 10.4 g/dL (12.0-15.0); Mean Corpuscular HGB Conc 29.9 g/dl (32-36); Mean Corpuscular Hemoglobin 23.3 pg (26-34); Mean Platelet Volume 10.4 fl (7.4-10.4); Platelet Count Result 385 k/mm3 (150-375); Red Blood Count 4.46 M/mm3 (4.2-5.4); Red Cell Distribution Width 18.1 % (11.5-14.5); White Blood Count 11.9 K/mm3 (4.5-10.0)
[2023-07-06] MEDS: lisinopriL 20 MG TABLET 40 MG PO (08:15)
[2023-07-06 08:16] VITALS: PULSE 88
[2023-07-06] MEDS: ATORVASTATIN 20 MG TABLET PO (08:16)
[2023-07-06] MEDS: METOPROLOL TARTRATE 25 MG TABLET PO (08:16)
[2023-07-06] MEDS: allopurinoL 100 MG TABLET PO (08:16)
[2023-07-06 08:17] VITALS: RESP 18; O2SAT 97
[2023-07-06 08:17] LABS: Anion Gap 7 mmol/L (8-16); Blood Urea Nitrogen 8 mg/dL (7-17); Calcium 7.7 mg/dL (8.4-10.2); Carbon Dioxide 26 mmol/L (22-30); Chloride 102 mmol/L (98-107); Estimated CRCL calculation 65 ml/min; Estimated Glomerular Filt Rate 48; Glucose 104 mg/dL (65-110); Magnesium 1.6 mg/dL (1.6-2.3); Phosphorus 3.1 mg/dL (2.5-4.5); Potassium 3.3 mmol/L (3.4-5.0); Sodium 135 mmol/L (137-145)
[2023-07-06 09:28] LABS: Iron 35 ug/dL (37-170)
[2023-07-06 09:53] LABS: Percent Iron Saturation 12 % (20-50)
--- NOTE | 2023-07-06 10:05 | WPDANESPN ---
Anes - Prog Note Post-Op Date/Time: 07/06/23 10:05 Cardiovascular status: normal Respiratory status: normal Airway patency: baseline Mental status: baseline Post-Op hydration status: normal Vital Signs: Last Vital Signs Temp 36.7 C 07/06/23 06:00 Pulse 88 07/06/23 08:16 Resp 18 07/06/23 08:17 BP 151/86 H 07/06/23 06:00 Pulse Ox 97 07/06/23 08:17 O2 Del Method Room Air 07/06/23 08:17 Pain Score (VAS): Patient asleep, no nonverbal signs of pain present at this time. I/O: Intake & Output 07/05/23 07/06/23 07/06/23 23:59 07:59 15:59 Intake Total 770 1000 Output Total 800 Balance 770 200 Laboratory Tests 07/06/23 07:46 07/06/23 07:46 07/04/23 07/05/23 07/05/23 08:40 13:57 15:08 WBC 6.9 RBC 3.92 L Hgb 9.2 L Hct 30.7 L MCV 78.3 L MCH 23.5 L MCHC 30.0 L RDW 17.7 H Plt Count 281 MPV 9.9 Immature Gran % (Auto) 1.2 H Neut % (Auto) 66.9 Lymph % (Auto) 18.2 L Beauregard % (Auto) 11.8 H Eos % (Auto) 0.9 Baso % (Auto) 1.0 Lymph # (Auto) 1.26 Beauregard # (Auto) 0.8 H Eos # (Auto) 0.1 Baso # (Auto) 0.1 Abs Immat Gran (auto) 0.08 H Absolute Neuts (auto) 4.6 Absolute Nucleated RBC 0.0 Nucleated RBC % 0.6 H PT 14.7 INR 1.1 APTT 30.6 Sodium 137 Potassium 2.9 L Chloride 103 Carbon Dioxide 28 Anion Gap 6 L BUN 8 D Creatinine 1.10 H Estim Creat Clear Calc 71 Estimated GFR 53 L Glucose 91 Calcium 7.8 L Phosphorus Magnesium Iron TIBC % Saturation Ferritin Blood Type A Positive Antibody Screen Negative Crossmatch See Detail 07/06/23 07:46 WBC 11.9 H RBC 4.46 Hgb 10.4 L Hct 34.8 L MCV 78.0 L MCH 23.3 L MCHC 29.9 L RDW 18.1 H Plt Count 385 H MPV 10.4 Immature Gran % (Auto) Neut % (Auto) Lymph % (Auto) Beauregard % (Auto) Eos % (Auto) Baso % (Auto) Lymph # (Auto) Beauregard # (Auto) Eos # (Auto) Baso # (Auto) Abs Immat Gran (auto) Absolute Neuts (auto) Absolute Nucleated RBC Nucleated RBC % PT INR APTT Sodium 135 L Potassium 3.3 L Chloride 102 Carbon Dioxide 26 Anion Gap 7 L BUN 8 Creatinine 1.20 H Estim Creat Clear Calc 65 Estimated GFR 48 L Glucose 104 Calcium 7.7 L Phosphorus 3.1 Magnesium 1.6 Iron 35 L TIBC 296 % Saturation 12 L Ferritin 77.30 Blood Type Antibody Screen Crossmatch Post-procedural complaints: none Patient Feedback: Patient satisfied with anesthetic care.
[2023-07-06] MEDS: HYDROcodone/acetaminophen (*CRX) 5-325 MG TABLET 1 TAB PO (11:16)
== END 2023-07-06 12:35 | disposition home or self-care (01) | DRG 742 ==
PROVIDERS: Anesthesiology; Hospitalist; Internal Medicine; Admitting Provider Obstetrics & Gynecology; PCP Family Medicine; Visit Provider Obstetrics & Gynecology
PROC: 0U5B8ZZ Destruction of Endometrium, Via Natural or Artificial Opening Endoscopic (ICD-10-PCS; CPT 58563; principal; 2023-07-05 12:30)
DX: N92.0 Excessive and frequent menstruation with regular cycle (principal); C91.11 Chronic lymphocytic leukemia of B-cell type in remission; D62 Acute posthemorrhagic anemia; Z68.41 Body mass index [BMI] 40.0-44.9, adult; I12.9 Hypertensive chronic kidney disease with stage 1 through stage 4 chronic kidney disease, or unspecified chronic kidney disease; N18.30 Chronic kidney disease, stage 3 unspecified; E78.5 Hyperlipidemia, unspecified; M10.9 Gout, unspecified; I73.9 Peripheral vascular disease, unspecified; F17.210 Nicotine dependence, cigarettes, uncomplicated; E66.01 Morbid (severe) obesity due to excess calories; Z86.718 Personal history of other venous thrombosis and embolism
CPT/HCPCS: 36415; 36430; 80048; 80053; 82728; 83540; 83550; 83735; 84100; 85014; 85018; 85025; 85027; 85610; 85730; 86850; 86900; 86901; 86923; 96372; 96374; 96375; 96376; A9270; G0378; G0379; J1410; J2250; J2405; J2704; J3010; J3480; J7040; J7050; J7120; P9016

== ENCOUNTER 2023-07-18 07:25 | Emergency (ER) | payer MEDICARE, MEDICAID, SELFPAY ==
[2023-07-18 07:25] VITALS: BP 168/112; PULSE 116; PULSE 118; RESP 17; RESP 18; TEMP 37; O2SAT 98; O2SAT 99
--- NOTE | 2023-07-18 07:34 | ED.URI ---
HPI - URI/Sore Throat General Chief Complaint: Upper Respiratory Infection Stated Complaint: covid symptoms Time Seen by Provider: 07/18/23 07:34 Source: patient and RN notes reviewed Mode of arrival: ambulatory Limitations: no limitations History of Present Illness HPI Narrative: patient states that ever since her bone marrow biopsy 3 weeks ago she has been having dry heaves and nausea. She was seen here 2 days after her biopsy and diagnosed with the UTI at that time she was treated with cefdinir. She says she feels like when she gets sepsis. She says she has no symptom UTIs that cause her to have the dry heaves. She is also having some left flank pain. She denies any cough. She has been having hot and cold chills. She is having regular bowel movements. No really having any abdominal pain. MD elicited complaint: other (dry heaves, nausea) Onset (ago): week(s) (3) Consistency: intermittent Severity: moderate Able to tolerate fluids by mouth: Yes Exacerbating factors: other (eating) Relieving factors: nothing Context: recent hospitalization Associated symptoms: chills, nausea and vomiting Treatments prior to arrival: none Related Data Home Medications Medication Instructions Recorded Confirmed leuprolide 3.75 mg intramuscular 3.75 mg IM MONTHLY 06/29/23 06/29/23 syringe kit (Lupron Depot) norethindrone acetate 5 mg tablet 5 mg PO DAILY 06/29/23 06/29/23 metoprolol tartrate 25 mg tablet 25 mg PO DAILY 07/11/23 07/18/23 Allergies Allergy/AdvReac Type Severity Reaction Status Date / Time gentian jake Allergy Rash Verified 07/18/23 07:33 Tetracyclines AdvReac Other Verified 07/18/23 07:33 Review of Systems Review of Systems: All systems reviewed & are unremarkable except as noted in HPI and below PMFSH Past Medical History Medical History CLL (chronic lymphocytic leukemia) DVT (deep venous thrombosis) History of arterial occlusion History of endometrial biopsy Hypertension Nicotine dependence, cigarettes, uncomplicated Obesity Pyoderma gangrenosa Superficial granulomatous pyoderma Vasculitis Surgical History Surgical History History of adenoidectomy Hx of tonsillectomy Family History Family History Father COPD (chronic obstructive pulmonary disease) Grandparent Colon cancer Sibling Pancreatic cancer Social History Social History Smoking packs per day: 0.5 Smoking cigarettes per day: 10.0 Years smoked: 35 Smoking pack-years: 17.50 Smoking status: Current every day smoker Tobacco type: cigarettes Alcohol intake: former Substance use: never Substance use type: marijuana Other substance usage details: IN HER 20'S Lack of Transportation: No Lack of Food: Never True Current Housing: I Have Housing Concerned About Future Housing: No Difficulty Paying Gas/Electric Bills: No Difficulty Paying for Meds: No Currently Unemployed: No Education: Associate Degree Difficulty w/ Childcare or Family Care: No Living arrangements: with family Occupation/Education: occupation Additional occupation/education comments: [employer] Spiritual care concerns: No Exam Const: General: healthy appearing, no acute distress and alert Nutritional Appearance: well nourished and obese morbidly obese Orientation/consciousness: patient oriented x3 Limitations: no limitations HENMT: Head: normal to inspection Ears: external ears normal Face/Nose/Sinus: Normal external nose present Face and sinus: normal facial exam Mouth: Yes moist mucous membranes Eyes: Conjunctivae: conjunctivae normal Pupils: Equal, round and reactive pupils present EOM: EOMs intact bilaterally Neck: Neck: normal visual inspection Resp: Effort & Inspection: normal respiratory ef
[2023-07-18 07:43] VITALS: BP 168/112; PULSE 100; RESP 18; O2SAT 99
[2023-07-18 07:51] VITALS: BP 158/95; PULSE 95; RESP 16; O2SAT 99
[2023-07-18 08:05] LABS: Basophils Percent Auto 0.5 % (0.0-1.0); Eosinophils Absolute Auto 0.03 K/mm3 (0.02-0.50); Eosinophils Percent Auto 0.2 % (1.0-6.0); Hematocrit 35.6 % (35.0-49.0); Hemoglobin 10.4 g/dL (12.0-15.0); Immature Granulocyte Percent A 0.5 % (0.0-0.0); Lymphocytes Percent Auto 6.7 % (18.0-42.0); Mean Corpuscular HGB Conc 29.2 g/dL (32.0-36.0); Mean Corpuscular Hemoglobin 23.3 pg (27.0-31.0); Mean Corpuscular Volume 79.8 fL (78.0-102.0); Mean Platelet Volume 9.9 fl (9.2-11.8); Monocytes Absolute Auto 0.83 K/mm3 (0.10-0.90); Monocytes Percent Auto 4.3 % (2.0-11.0); Neutrophils Percent Auto 87.8 % (50.0-70.0); Platelet Count Result 380 K/mm3 (150-420); Red Blood Count 4.46 M/mm3 (4.20-5.40); Red Cell Distribution Width 19.3 % (11.6-14.4); White Blood Count 19.3 K/mm3 (4.8-10.8)
[2023-07-18 08:20] LABS: Alanine Aminotransferase 327 U/L (14-59); Albumin Level 2.3 g/dL (3.4-5.0); Alkaline Phosphatase 112 U/L (46-116); Anion Gap 15 mmol/L (8-16); Aspartate Amino Transferase 115 U/L (15-37); Bilirubin,Total 0.4 mg/dL (0.00-1.00); Blood Urea Nitrogen 11 mg/dL (7-18); Carbon Dioxide 22 mmol/L (21-32); Chloride 100 mmol/L (98-108); Estimated CRCL calculation 59 ml/min; Estimated Glomerular Filt Rate 45; Glucose 141 mg/dL (70-99); Magnesium 1.9 mg/dL (1.8-2.4); Osmolality Calculated 285 mOsm/kg (285-295); Potassium 3.3 mmol/L (3.5-5.1); Sodium 137 mmol/L (136-145); Total Protein 7.1 g/dL (6.4-8.2)
[2023-07-18 08:22] LABS: CRP 16.6 mg/dL (0.0-0.9)
[2023-07-18 08:23] VITALS: BP 141/84; PULSE 89; RESP 16; O2SAT 99
[2023-07-18 08:27] LABS: Lactic Acid Reflex 1.2 mmol/L (0.4-2.0)
[2023-07-18 08:31] LABS: Appearance Urine Slightly Cloudy (Clear); Bilirubin Urine 2+ (Negative); Blood Urine 3+ (Negative); Color Urine Yellow (Yellow); Glucose Urine UA Negative (Negative); Ketones Urine Negative (Negative); Leukocyte Esterase Ur Trace LEU/UL (Negative); Nitrate Urine Negative (Negative); Protein Urine 3+ (Negative); Specific Grav Ur 1.025 (1.010-1.020); Urobilinogen Urine 0.2 mg/dL (0.2-1.0)
[2023-07-18 08:32] LABS: Influenza A QL RT-PCR Negative (Negative); Influenza B QL RT-PCR Negative (Negative); SARS-CoV-2 RNA PCR Negative (Negative)
[2023-07-18 08:38] LABS: Add Urine Microscopic? YES; Squamous Epithelial Cell Urine Moderate /hpf (Few); WBC Urine 16-20 /hpf (0-3)
[2023-07-18 08:39] LABS: Bacteria Urine 3+ /hpf
[2023-07-18 09:06] VITALS: BP 141/84; PULSE 87; RESP 16; TEMP 37.1; O2SAT 99
--- NOTE | 2023-07-20 13:38 | PC.NURSE ---
final urine culture reviewed. mixed genital mikayla isolated. these superficial bacteria are not indicative of a UTI. no change in plan of care.
== END 2023-07-18 09:06 | disposition home or self-care (01) ==
PROVIDERS: Emergency Provider Emergency Medicine; PCP Family Medicine
DX: N39.0 Urinary tract infection, site not specified (principal); C91.10 Chronic lymphocytic leukemia of B-cell type not having achieved remission; I10 Essential (primary) hypertension; E66.9 Obesity, unspecified; Z68.39 Body mass index [BMI] 39.0-39.9, adult; F17.210 Nicotine dependence, cigarettes, uncomplicated; F12.90 Cannabis use, unspecified, uncomplicated; Z79.818 Long term (current) use of other agents affecting estrogen receptors and estrogen levels; Z20.822 Contact with and (suspected) exposure to COVID-19
CPT/HCPCS: 36415; 80053; 81001; 83605; 83735; 85025; 86140; 87086; 87088; 87636; 99283

== ENCOUNTER 2023-07-25 13:29 | Outpatient (CLI) | payer MEDICARE, MEDICAID, SELFPAY ==
[2023-07-25 13:43] LABS: Basophils Absolute Auto 0.13 K/mm3 (0.00-0.10); Basophils Percent Auto 0.7 % (0.0-1.0); Eosinophils Absolute Auto 0.06 K/mm3 (0.02-0.50); Eosinophils Percent Auto 0.3 % (1.0-6.0); Hematocrit 35.9 % (35.0-49.0); Hemoglobin 10.5 g/dL (12.0-15.0); Immature Granulocyte Absolute 0.08 K/mm3 (0.00-0.00); Immature Granulocyte Percent A 0.4 % (0.0-0.0); Immature Platelet Fraction Pct 2.7 % (1.0-7.0); Lymphocytes Absolute Auto 1.76 K/mm3 (1.10-4.50); Lymphocytes Percent Auto 9.9 % (18.0-42.0); Mean Corpuscular HGB Conc 29.2 g/dL (32.0-36.0); Mean Corpuscular Hemoglobin 22.9 pg (27.0-31.0); Mean Corpuscular Volume 78.4 fL (78.0-102.0); Mean Platelet Volume 9.2 fl (9.2-11.8); Monocytes Absolute Auto 1.01 K/mm3 (0.10-0.90); Monocytes Percent Auto 5.7 % (2.0-11.0); Neutrophils Absolute Auto 14.8 K/mm3 (1.7-7.2); Platelet Count Result 664 K/mm3 (150-420); Red Blood Count 4.58 M/mm3 (4.20-5.40); Red Cell Distribution Width 18.9 % (11.6-14.4); White Blood Count 17.8 K/mm3 (4.8-10.8)
[2023-07-25 13:49] LABS: Appearance Urine Clear (Clear); Bilirubin Urine 1+ (Negative); Blood Urine 2+ (Negative); Color Urine Yellow (Yellow); Glucose Urine UA Negative (Negative); Ketones Urine Negative (Negative); Leukocyte Esterase Ur Negative (Negative); Nitrate Urine Negative (Negative); Protein Urine 3+ (Negative); Urobilinogen Urine 0.2 mg/dL (0.2-1.0)
[2023-07-25 13:55] LABS: Add Urine Microscopic? YES
[2023-07-25 13:56] LABS: Bacteria Urine 1+ /hpf; Squamous Epithelial Cell Urine Few /hpf (Few)
[2023-07-25 14:19] LABS: Alanine Aminotransferase 783 U/L (14-59); Albumin Level 2.6 g/dL (3.4-5.0); Alkaline Phosphatase 107 U/L (46-116); Anion Gap 15 mmol/L (8-16); Aspartate Amino Transferase 341 U/L (15-37); Bilirubin,Total 0.4 mg/dL (0.00-1.00); Blood Urea Nitrogen 13 mg/dL (7-18); Calcium 9.1 mg/dL (8.5-10.1); Carbon Dioxide 24 mmol/L (21-32); Chloride 97 mmol/L (98-108); Estimated Glomerular Filt Rate 50; Glucose 131 mg/dL (70-99); Osmolality Calculated 284 mOsm/kg (285-295); Sodium 136 mmol/L (136-145); Total Protein 6.6 g/dL (6.4-8.2)
[2023-07-28 12:45] LABS: Hepatitis A Antibody IgM Nonreactive; Hepatitis B Core Antibody Nonreactive (Nonreactive); Hepatitis B Surface Antigen Nonreactive (Nonreactive); Hepatitis C Virus Antibody Nonreactive
== END 2023-07-25 13:30 | disposition home or self-care (01) ==
LOC: CHSLAB 13:30
PROVIDERS: PCP Family Medicine; Visit Provider Family Medicine
DX: D64.9 Anemia, unspecified (principal); N39.0 Urinary tract infection, site not specified; K21.9 Gastro-esophageal reflux disease without esophagitis; R74.01 Elevation of levels of liver transaminase levels; R82.90 Unspecified abnormal findings in urine
CPT/HCPCS: 36415; 80053; 80074; 81001; 85025; 85055; 87086

== ENCOUNTER 2023-07-27 16:24 | Observation (INO) | payer MEDICARE, MEDICAID, SELFPAY ==
--- NOTE | ~2023-07-27 | CT_ITS ---
EXAMINATION: CT abdomen pelvis w con DATE: 07/27/2023 17:57 INDICATION: Epigastric pain TECHNIQUE: Computed tomography (CT) of the abdomen and pelvis was performed with 100 mL Omnipaque-350 intravenous contrast. Automated exposure control and iterative reconstruction technique were employe d. The dose-length product was 1480.35 mGy-cm. COMPARISON: 04/25/2022 FINDINGS: Mild discoid atelectasis in the right middle lobe. Small region of scarring at the posterior sulcus o f the left lower lobe. Heart size is normal. Atherosclerotic coronary artery calcific a. No pericardi al or pleural effusion. Small sliding-type hiatal hernia. Liver and pancreas are normal. Multiple balaji cified gallstones in the otherwise normal-appearing gallbladder. Splenomegaly measuring 13.8 cm crani ocaudal length but significantly decreased since the prior study at which time the length measured 23 .6 cm consistent with response to treatment of reported prior leukemia. There were large geographic r egions of the spleen which demonstrate minimal if any enhancement, coronal of this is related to the region of treated leukemia, phase of contrast or potentially splenic infarct. No significant interval change since 06/14/2020 and bilateral adrenal adenomas which demonstrated characteristic low-attenuati on on the earlier noncontrast CT . Or retained lobulations at the bilateral kidneys. 1.5 cm exc ept cyst at the lower pole of the left kidney. Bowels including the appendix are normal. There is mas slike enlargement with heterogeneous enhancement of the fundus of the uterus which appears to exert m ass effect upon the endometrial canal suggesting the presence of a poorly defined uterine fibroid. Th e compressed bladder is unremarkable. No free intraperitoneal gas or fluid. No pathologically enlarge d abdominal or pelvic lymphadenopathy. Moderate thoracic and lumbar spondylosis. Chronic mild likely physiologic anterior wedging at T11-L1. IMPRESSION: 1. Large geographic regions of minimal if any enhancement in the spleen. It is unclear this is due to splenic infarct, phase of contrast or response to treatment of reported prior leukemia with signific ant decrease in size of the patient markedly enlarged, now mildly enlarged spleen. 2. Cholelithiasis. 3. Small sliding-type hiatal hernia. 4. Significant interval enlargement of the fundus of the uterus suggesting a possible occult uterine fibroid. Recommend follow-up pelvic ultrasound for further evaluation. Reviewed, dictated and finalized at location A. IMPRESSION: 1. Large geographic regions of minimal if any enhancement in the spleen. It is unclear this is due to splenic infarct, phase of contrast or response to treatm ent of reported prior leukemia with significant decrease in size of the patient markedly enlarged, now mildly enlarged spleen. 2. Cholelithiasis. 3. Small sliding-type hiatal hernia. 4. Significant interval enlargement of the fundus of the uterus suggesting a po ssible occult uterine fibroid. Recommend follow-up pelvic ultrasound for furthe r evaluation.
--- NOTE | ~2023-07-27 | XR_ITS ---
EXAMINATION: XR chest 1V portable 07/28/2023 08:14 INDICATION: Leukocytosis PROCEDURE: AP portable chest COMPARISON: Comparison to multiple prior studies sequentially, with oldest reviewed study dated 05/21. FINDINGS: The lungs are clear. The cardiomediastinal silhouette is within normal limits. There are no pleural effusions. There is no pneumothorax suspected. IMPRESSION: 1: NO ACUTE CARDIOPULMONARY DISEASE. Reviewed, dictated and finalized at location A.
[2023-07-27 16:34] VITALS: BP 163/113; PULSE 95; RESP 20; TEMP 36.1; O2SAT 100
--- NOTE | 2023-07-27 16:46 | ECG_ITS ---
Measurements Intervals [place] Rate: 88 P: 55 MT: 165 QRS: 68 QRSD: 84 T: 15 QT: 352 QTc: 426 Interpretive Statements SINUS RHYTHM NONSPECIFIC ST SEGMENT ABNORMALITY BORDERLINE ECG COMPARED TO ECG 10/18/2020 19:49:57 NO SIGNIFICANT CHANGES Electronically Signed On 07-29-2023 8:54:53 CDT by Mor Bryant M.D.
[2023-07-27 17:09] LABS: Basophils Absolute Auto 0.11 K/mm3 (0.00-0.10); Basophils Percent Auto 0.6 % (0.0-1.0); Eosinophils Absolute Auto 0.02 K/mm3 (0.02-0.50); Eosinophils Percent Auto 0.1 % (1.0-6.0); Hematocrit 35.7 % (35.0-49.0); Hemoglobin 10.7 g/dL (12.0-15.0); Immature Granulocyte Absolute 0.09 K/mm3 (0.00-0.00); Immature Granulocyte Percent A 0.5 % (0.0-0.0); Lymphocytes Absolute Auto 1.74 K/mm3 (1.10-4.50); Lymphocytes Percent Auto 9.9 % (18.0-42.0); Mean Corpuscular Hemoglobin 23.3 pg (27.0-31.0); Mean Corpuscular Volume 77.8 fL (78.0-102.0); Mean Platelet Volume 9.6 fl (9.2-11.8); Monocytes Absolute Auto 0.94 K/mm3 (0.10-0.90); Monocytes Percent Auto 5.4 % (2.0-11.0); Neutrophils Absolute Auto 14.6 K/mm3 (1.7-7.2); Neutrophils Percent Auto 83.5 % (50.0-70.0); Platelet Count Result 707 K/mm3 (150-420); Red Blood Count 4.59 M/mm3 (4.20-5.40); White Blood Count 17.5 K/mm3 (4.8-10.8)
[2023-07-27] MEDS: SODIUM CHLORIDE 0.9% IV 1,000 ML 999 ML IV CONT (17:22)
[2023-07-27] MEDS: PANTOPRAZOLE SODIUM IV 40 MG VIAL IV PUSH (17:23)
[2023-07-27] MEDS: ONDANSETRON INJ 4 MG/2 ML VIAL IV PUSH (17:23)
[2023-07-27 17:30] LABS: Partial Thromboplastin Time 25.2 SEC (23.90-30.70); Prothrombin Time 10.6 Seconds (9.50-12.10)
[2023-07-27 17:32] LABS: Appearance Urine Clear (Clear); Bilirubin Urine 2+ (Negative); Blood Urine 3+ (Negative); Glucose Urine UA Negative (Negative); Ketones Urine 1+ (Negative); Leukocyte Esterase Ur Trace LEU/UL (Negative); Nitrate Urine Negative (Negative); Protein Urine 3+ (Negative); pH Urine 7.5 (5.0-8.0)
[2023-07-27 17:34] LABS: Pregnancy On Board Control Positive; Urine Pregnancy Test Negative
--- NOTE | 2023-07-27 17:35 | PC.NURSE ---
On 07/27/23, the student, [JOSE CLEMENTS ], provided care and completed [facility] documentation on this patient. I have reviewed the student's documentation and agree with the findings.
[2023-07-27 17:36] LABS: Alanine Aminotransferase 394 U/L (14-59); Albumin Level 2.5 g/dL (3.4-5.0); Alkaline Phosphatase 119 U/L (46-116); Anion Gap 20 mmol/L (8-16); Aspartate Amino Transferase 153 U/L (15-37); Bilirubin,Total 0.5 mg/dL (0.00-1.00); Blood Urea Nitrogen 15 mg/dL (7-18); Calcium 9.3 mg/dL (8.5-10.1); Carbon Dioxide 20 mmol/L (21-32); Chloride 101 mmol/L (98-108); Estimated CRCL calculation 50 ml/min; Estimated Glomerular Filt Rate 36; Glucose 142 mg/dL (70-99); Lipase 52 U/L (16-77); Osmolality Calculated 294 mOsm/kg (285-295); Potassium 3.7 mmol/L (3.5-5.1); Sodium 141 mmol/L (136-145); Total Protein 7.6 g/dL (6.4-8.2); Troponin I 24.1 ng/L (0.00-60.4)
[2023-07-27 17:54] LABS: Add Urine Microscopic? YES; Bacteria Urine 2+ /hpf; Color Urine Dark Yellow (Yellow); RBC Urine 21-50 /hpf (0-2); Squamous Epithelial Cell Urine Moderate /hpf (Few); Triple Phosphate Crystal Urine Present /hpf
[2023-07-27 18:27] VITALS: PULSE 93
[2023-07-27] MEDS: METOPROLOL TARTRATE INJ 5 MG/5 ML VIAL IV PUSH (18:27)
--- NOTE | 2023-07-27 18:58 | ED.NAVMDI ---
HPI - Nausea/Vomiting/Diarrhea General Chief complaint: Nausea/Vomiting/Diarrhea Stated complaint: vomiting; dizziness Time Seen by Provider: 07/27/23 16:30 Source: patient Mode of arrival: ambulatory Limitations: no limitations History of Present Illness HPI Narrative: this is 52-year-old female with history of hypertension presents with some abdominal pain with nausea vomiting no diarrhea constipation no fever chills the patient has been having abdominal discomfort for the last 2 to 3 days has seen her primary care physician. Currently there is no fever chills no chest pain no shortness of breath patient denies dysuria or hematuria. Patient also has a history of CLL. MD elicited complaint: nausea, vomiting and abdominal pain Pertinent past history: anorexia Onset (ago): day(s) Description of vomiting: watery Associated nausea: Yes Associated abdominal pain: Yes Location of pain: diffuse Pain consistency: constant Severity: moderate Pain scale (0-10): 8 Quality: aching Related Data Home Medications Medication Instructions Recorded Confirmed leuprolide 3.75 mg intramuscular 3.75 mg IM MONTHLY 06/29/23 07/27/23 syringe kit (Lupron Depot) norethindrone acetate 5 mg tablet 5 mg PO DAILY 06/29/23 07/27/23 metoprolol tartrate 25 mg tablet 25 mg PO DAILY 07/11/23 07/27/23 Allergies Allergy/AdvReac Type Severity Reaction Status Date / Time gentian jake Allergy Rash Verified 07/27/23 18:41 Tetracyclines AdvReac Other Verified 07/27/23 18:41 Review of Systems Review of Systems: All systems reviewed & are unremarkable except as noted in HPI and below PMFSH Past Medical History Medical History CLL (chronic lymphocytic leukemia) DVT (deep venous thrombosis) History of arterial occlusion History of endometrial biopsy Hypertension Nicotine dependence, cigarettes, uncomplicated Obesity Pyoderma gangrenosa Superficial granulomatous pyoderma Vasculitis Surgical History Surgical History History of adenoidectomy Hx of tonsillectomy Family History Family History Father COPD (chronic obstructive pulmonary disease) Grandparent Colon cancer Sibling Pancreatic cancer Social History Social History Smoking packs per day: 0.5 Smoking cigarettes per day: 10.0 Years smoked: 35 Smoking pack-years: 17.50 Smoking status: Current every day smoker Tobacco type: cigarettes Alcohol intake: former Substance use: never Substance use type: marijuana Other substance usage details: IN HER 20'S Lack of Transportation: No Lack of Food: Never True Current Housing: I Have Housing Concerned About Future Housing: No Difficulty Paying Gas/Electric Bills: No Difficulty Paying for Meds: No Currently Unemployed: No Education: Associate Degree Difficulty w/ Childcare or Family Care: No Living arrangements: with family Occupation/Education: occupation Additional occupation/education comments: [employer] Spiritual care concerns: No Exam Const: General: no acute distress Nutritional Appearance: obese Orientation/consciousness: patient oriented x3 Limitations: no limitations HENMT: Head: normal to inspection Neck: Neck: normal visual inspection, no lymphadenopathy and no meningeal signs Chest: Chest palpation & inspection: normal inspection of the chest Resp: Effort & Inspection: normal respiratory effort Auscultation: clear to auscultation bilaterally Cardio: Rate: regular rate Rhythm: regular rhythm GI: GI Palp: Yes Soft to palpation and Yes Tenderness to palpation present (GI) Auscultation: normal bowel sounds : General: Yes bladder normal to palpation Back/Spine/Pelvis: Back: no CVA tenderness Skin: General skin exam: normal color Rashe
[2023-07-27 19:16] VITALS: BP 180/100; PULSE 80; RESP 20; O2SAT 97
[2023-07-27 19:24] VITALS: PULSE 83; RESP 16; O2SAT 97
[2023-07-27 19:43] LABS: Reflex Lactic Acid Yes or No Add Lactic
[2023-07-27] MEDS: ENALAPRILAT 2.5 MG/2 ML VIAL 1.25 MG IV PUSH (19:49)
[2023-07-27 20:10] VITALS: BP 171/84
--- NOTE | 2023-07-27 21:05 | ADMGEN ---
This patient, Nicole Hamilton, was admitted to 2nd Floor Room 203-1. Patient/family oriented to hospital policies and general routines including ID bracelet, bed and alarms, visiting hours, pain management, procedures, bathroom and other care routines, personal items, smoking policy, room service/diet, and visiting hours. Information on how to activate the Rapid Response Team has been discussed. Patient/Family are encouraged to report perceived risks to care and to ask questions if they do not understand what they are told or what they should do.
[2023-07-27 21:14] VITALS: BMI 38.1
[2023-07-27] MEDS: DEXTROSE 5%/0.9% SOD CHL 1,000 ML 100 ML IV CONT (21:45)
[2023-07-28] VITALS: BP 190/68; PULSE 83; RESP 16; TEMP 36.1; O2SAT 97
[2023-07-28] MEDS: ONDANSETRON INJ 4 MG/2 ML VIAL IV PUSH ×2 (00:09→06:49)
[2023-07-28 05:39] LABS: Basophils Absolute Auto 0.11 K/mm3 (0.00-0.10); Basophils Percent Auto 0.7 % (0.0-1.0); Eosinophils Absolute Auto 0.14 K/mm3 (0.02-0.50); Eosinophils Percent Auto 0.8 % (1.0-6.0); Hemoglobin 9.1 g/dL (12.0-15.0); Immature Granulocyte Absolute 0.11 K/mm3 (0.00-0.00); Immature Granulocyte Percent A 0.7 % (0.0-0.0); Immature Platelet Fraction Pct 2.7 % (1.0-7.0); Lymphocytes Percent Auto 9.5 % (18.0-42.0); Mean Corpuscular HGB Conc 29.4 g/dL (32.0-36.0); Mean Corpuscular Volume 78.3 fL (78.0-102.0); Mean Platelet Volume 10.1 fl (9.2-11.8); Monocytes Absolute Auto 1.23 K/mm3 (0.10-0.90); Monocytes Percent Auto 7.3 % (2.0-11.0); Neutrophils Absolute Auto 13.7 K/mm3 (1.7-7.2); Platelet Count Result 581 K/mm3 (150-420); Red Blood Count 3.96 M/mm3 (4.20-5.40); Red Cell Distribution Width 18.7 % (11.6-14.4); White Blood Count 16.9 K/mm3 (4.8-10.8)
[2023-07-28 05:53] LABS: Alanine Aminotransferase 315 U/L (14-59); Alkaline Phosphatase 89 U/L (46-116); Anion Gap 11 mmol/L (8-16); Aspartate Amino Transferase 143 U/L (15-37); Bilirubin,Total 0.2 mg/dL (0.00-1.00); Blood Urea Nitrogen 11 mg/dL (7-18); Calcium 8.3 mg/dL (8.5-10.1); Carbon Dioxide 27 mmol/L (21-32); Chloride 105 mmol/L (98-108); Estimated CRCL calculation 65 ml/min; Estimated Glomerular Filt Rate 50; Glucose 118 mg/dL (70-99); Osmolality Calculated 296 mOsm/kg (285-295); Potassium 3.2 mmol/L (3.5-5.1); Sodium 143 mmol/L (136-145); Total Protein 6.1 g/dL (6.4-8.2)
[2023-07-28 05:57] LABS: Lactic Acid 0.7 mmol/L (0.4-2.0)
--- NOTE | 2023-07-28 07:14 | PM.IMHP ---
H&P: HPI History of Present Illness Date/Time: 07/28/23 07:14 Chief Complaint: Abdominal pain, nausea, vomiting PMFSH Past Medical History Medical History CLL (chronic lymphocytic leukemia) DVT (deep venous thrombosis) History of arterial occlusion History of endometrial biopsy Hypertension Nicotine dependence, cigarettes, uncomplicated Obesity Pyoderma gangrenosa Superficial granulomatous pyoderma Vasculitis Surgical History Surgical History History of adenoidectomy Hx of tonsillectomy Family History Family History Father COPD (chronic obstructive pulmonary disease) Grandparent Colon cancer Sibling Pancreatic cancer Social History Social History Smoking packs per day: 0.5 Smoking cigarettes per day: 10.0 Years smoked: 30 Smoking pack-years: 15.00 Smoking status: Current every day smoker Tobacco type: cigarettes Second hand tobacco smoke exposure: Yes Alcohol intake: former Substance use: former Substance use type: marijuana Other substance usage details: IN HER 20'S Lack of Transportation: No Lack of Food: Never True Current Housing: I Do Not Have Housing Concerned About Future Housing: No Difficulty Paying Gas/Electric Bills: YES Difficulty Paying for Meds: No Currently Unemployed: No Education: Associate Degree Difficulty w/ Childcare or Family Care: No Living arrangements: with family Occupation/Education: occupation Additional occupation/education comments: [employer] Spiritual care concerns: No Meds Home Medications and Allergies Home Medications Medication Instructions Recorded Confirmed Type lisinopril 40 mg tablet 40 mg PO DAILY #90 tabs 03/24/23 07/27/23 Rx leuprolide 3.75 mg intramuscular 3.75 mg IM MONTHLY 06/29/23 07/27/23 History syringe kit (Lupron Depot) norethindrone acetate 5 mg tablet 5 mg PO DAILY 06/29/23 07/27/23 History allopurinol 100 mg tablet 100 mg PO DAILY #90 tabs 07/11/23 07/27/23 Rx atorvastatin 20 mg tablet 20 mg PO DAILY #90 tabs 07/11/23 07/27/23 Rx metoprolol tartrate 25 mg tablet 25 mg PO DAILY 07/11/23 07/27/23 History alprazolam 0.5 mg tablet 0.5 mg PO QHS PRN Anxiety or 07/25/23 07/27/23 Rx insomnia #20 tabs pantoprazole 40 mg tablet,delayed 40 mg PO QAM 6 weeks #42 tabs 07/25/23 07/27/23 Rx release sucralfate 1 gram tablet (Carafate) 1 g PO TID #90 tabs 07/25/23 07/27/23 Rx Allergies Allergy/AdvReac Type Severity Reaction Status Date / Time gentian jake Allergy Rash Verified 07/27/23 18:41 Tetracyclines AdvReac Other Verified 07/27/23 18:41 Vital Signs Vital Signs - 24 hr 07/27/23 16:34 07/27/23 18:27 07/27/23 19:16 Temperature 97.0 F L Pulse Rate 95 93 80 Respiratory Rate 20 20 Blood Pressure 163/113 H 180/100 H Pulse Oximetry 100 97 Oxygen Delivery Room Air Room Air 07/27/23 20:10 07/27/23 19:24 07/28/23 00:00 Temperature 97.0 F L Pulse Rate 83 83 Respiratory Rate 16 16 Blood Pressure 171/84 H 190/68 H Pulse Oximetry 97 97 Oxygen Delivery Room Air Room Air H&P: Results Labs Labs: Short CBC 07/27/23 07/28/23 Range/Units 17:05 05:07 WBC 17.5 H 16.9 H (4.8-10.8) K/mm3 Hgb 10.7 L 9.1 L (12.0-15.0) g/dL Hct 35.7 31.0 L (35.0-49.0) % Plt Count 707 H 581 H (150-420) K/mm3 BMP 07/27/23 07/28/23 17:05 05:07 Sodium 141 143 Potassium 3.7 3.2 L Chloride 101 105 Carbon Dioxide 20 L 27 BUN 15 11 Creatinine 1.52 H 1.14 H Glucose 142 H 118 H Calcium 9.3 8.3 L Cardiac Enzymes 07/27/23 Range/Units 17:05 Troponin I 24.1 (0.00-60.4) ng/L Liver Function 07/27/23 07/28/23 Range/Units 17:05 05:07 Total Bilirubin 0.5 0.2 (0.00-1.00) mg/dL AST 153 H 143 H (
[2023-07-28 07:25] VITALS: BP 194/72; PULSE 69; RESP 16; TEMP 35.5; O2SAT 96
[2023-07-28] MEDS: MORPHINE SULFATE (*CRX) 2 MG/ML INJ IV PUSH (07:45)
[2023-07-28] MEDS: DEXTROSE 5%/0.9% SOD CHL 1,000 ML 100 ML IV CONT (07:51)
[2023-07-28] MEDS: SUCRALFATE 1 GM TABLET PO (07:52)
--- NOTE | 2023-07-28 08:14 | PM.TDS ---
Transfer Discharge Sum: Prov Provider Date of admission: 07/27/23 19:23 Primary care physician: Ari Elmore DO Admitting clinician: Parag Jones MD Receiving physician/facility: Dr Ba Morris DS: Admitting Diagnosis Discharge Date 07/28 Admitting Diagnosis abdominal pain DS: Discharge Diagnosis Discharge Diagnosis (1) Abdominal pain: Code(s): R10.9 - Unspecified abdominal pain Status: Acute Assessment and Plan: Patient reports intermittent, severe mid-epigastric abdominal pain that radiates to upper left and right quadrants and through to her back, accompanied by nausea and vomiting. Pain has been going on for the last 3 weeks but has worsened this last week She was seen in the ED at [facility] on 07/18 and dx with UTI. She was sent home with a rx for Augmentin. Represents to ED at [facility] on 07/27 with a continued abdominal pain leukocytosis of 17, anemia hgb 10.4, CR 1.5, transaminitis U/a was concerning for infection but the sample had moderate squamous cells Concerns for possible splenic abscess vs cholecystics however t bili not elevated CT abdomen shows, IMPRESSION: 1. Large geographic regions of minimal if any enhancement in the spleen. It is unclear this is due to splenic infarct, phase of contrast or response to treatment of reported prior leukemia with significant decrease in size of the patient markedly enlarged, now mildly enlarged spleen. 2. Cholelithiasis. 3. Small sliding-type hiatal hernia. 4. Significant interval enlargement of the fundus of the uterus suggesting a possible occult uterine fibroid. Recommend follow-up pelvic ultrasound for further evaluation (2) Transaminitis: Code(s): R74.01 - Elevation of levels of liver transaminase levels Status: Acute (3) UTI (urinary tract infection): Qualifiers: Hematuria presence: without hematuria Urinary tract infection type: acute cystitis Qualified Code(s): N30.00 - Acute cystitis without hematuria Code(s): N39.0 - Urinary tract infection, site not specified Status: Acute (4) Hypertension: Qualifiers: Hypertension type: unspecified Qualified Code(s): I10 - Essential (primary) hypertension Code(s): I10 - Essential (primary) hypertension Status: Acute (5) Nausea & vomiting: Qualifiers: Vomiting type: unspecified Qualified Code(s): R11.2 - Nausea with vomiting, unspecified Code(s): R11.2 - Nausea with vomiting, unspecified Status: Acute (6) CKD (chronic kidney disease) stage 3, GFR 30-59 ml/min: Code(s): N18.30 - Chronic kidney disease, stage 3 unspecified Status: Acute (7) CLL (chronic lymphocytic leukemia): Code(s): C91.10 - Chronic lymphocytic leukemia of B-cell type not having achieved remission Status: Acute Plan Transfer to [facility] for closer observation and plan to consult heme/oncology given recent CLL and concerns for splenic infarct vs abscess. May need GI consult as well and likely will need MRCP. Transfer Discharge Sum: Med Medications Active and Home Medications: Home Medications lisinopril 40 mg tablet 40 mg PO DAILY #90 tabs 03/24/23 [Rx Confirmed 07/27/23] leuprolide 3.75 mg intramuscular syringe kit (Lupron Depot) 3.75 mg IM MONTHLY 06/29/23 [History Confirmed 07/27/23] norethindrone acetate 5 mg tablet 5 mg PO DAILY 06/29/23 [History Confirmed 07/27/23] allopurinol 100 mg tablet 100 mg PO DAILY #90 tabs 07/11/23 [Rx Confirmed 07/27/23] atorvastatin 20 mg tablet 20 mg PO DAILY #90 tabs 07/11/23 [Rx Confirmed 07/27/23] metoprolol tartrate 25 mg tablet 25 mg PO DAILY 07/11/23 [History Confirmed 07/27/23] alprazolam 0.5 mg tablet 0.5 mg PO QHS PRN Anxiety or insomnia #20 tabs 07/25/23 [Rx Confirmed 07/27/23] pantoprazole 40 mg tablet,delayed release 40 mg PO QAM 6 weeks #42 tabs 07/25/23 [Rx Confirmed 07/27/23] sucralfate 1 gram tablet (Carafate) 1 g PO TID #90 tabs
[2023-07-28 08:51] LABS: Acetaminophen < 2 ug/mL (10-30)
--- NOTE | 2023-07-28 08:51 | PC.NURSE ---
room assignment obtained from supervisor tank house at [facility], to go to 306-2, number for report obtained
[2023-07-28 09:00] LABS: Magnesium 1.8 mg/dL (1.8-2.4)
[2023-07-28] MEDS: KCL 20 MEQ/SW 100 ML 100 ML 50 MEQ IVPB (09:06)
[2023-07-28 09:11] VITALS: PULSE 69
[2023-07-28] MEDS: METOPROLOL TARTRATE 25 MG TABLET PO (09:11)
[2023-07-28] MEDS: allopurinoL 100 MG TABLET PO (09:11)
[2023-07-28] MEDS: lisinopriL 20 MG TABLET 40 MG PO (09:11)
[2023-07-28] MEDS: PANTOPRAZOLE SODIUM IV 40 MG VIAL IV PUSH (09:11)
[2023-07-28] MEDS: ENOXAPARIN 30 MG/0.3 ML SYRINGE SUB-Q (09:13)
[2023-07-28] MEDS: CEFEPIME 1 GM/NS 50 ML 1 GM/50 ML BAG IVPB (09:41)
[2023-07-28] MEDS: metroNIDAZOLE 500 MG/ISO 100ML 500 MG/100 ML BAG 100 MG IVPB (09:41)
--- NOTE | 2023-07-28 09:55 | PC.NURSE ---
Report called to [facility]. Patient going to room 306-2. # [phone]
--- NOTE | 2023-07-28 10:30 | PC.NURSE ---
Patient transferred with D5 NS running at 100ml/hr, Potassium 20 Meq running at time of discharge as well. Both fluids are primary lines the potassium is piggybacks to D5 NS solution line.
--- NOTE | 2023-07-28 10:30 | PC.NURSE ---
EMS here to transport patient. IV sites left in placed, patient transferring to high level of care. D5NS with 20 MEQ of KCL cont. to infuse. Order provided to EMS for transport. Report given to EMS, all patient belongings sent with patient. Patient transferred to stretcher with sba assist. Left floor via stretcher accompanied by EMS.
== END 2023-07-28 10:30 | disposition short-term general hospital (02) ==
LOC: CHSED 19:16 → CHS2ND 19:26
PROVIDERS: Nurse Practitioner Acute Care; Admitting Provider Internal Medicine; Emergency Provider Emergency Medicine; PCP Family Medicine; Visit Provider Internal Medicine
DX: R10.10 Upper abdominal pain, unspecified (principal); N39.0 Urinary tract infection, site not specified; I10 Essential (primary) hypertension; L88 Pyoderma gangrenosum; D25.9 Leiomyoma of uterus, unspecified; R74.01 Elevation of levels of liver transaminase levels; F17.210 Nicotine dependence, cigarettes, uncomplicated; Z86.718 Personal history of other venous thrombosis and embolism; C91.11 Chronic lymphocytic leukemia of B-cell type in remission; Z79.899 Other long term (current) drug therapy
CPT/HCPCS: 36415; 71045; 74177; 80053; 80307; 81001; 81025; 83605; 83690; 83735; 84484; 85025; 85055; 85610; 85730; 87040; 87086; 87088; 93005; 96361; 96365; 96367; 96372; 96375; 96376; 99285; A9270; C9113; G0378; J0692; J0696; J1650; J1836; J2270; J2405; J3480; J7030; J7042; Q9967

== ENCOUNTER 2023-07-28 15:17 | Observation (INO) | payer MEDICARE, MEDICAID, SELFPAY ==
--- NOTE | ~2023-07-28 | US_ITS ---
EXAMINATION: US pelvic complete DATE: 07/29/2023 11:11 INDICATION: Uterine mass Comparison:CT dated 07/27/2023 TECHNIQUE: Multiple transabdominal and endovaginal sonographic images of the pelvis performed. FINDINGS: The uterus measures 10.9 x 7.1 x 9.5 cm. Uterus is diffusely heterogeneous with multiple pr obable uterine fibroids, largest discrete mass measuring 2.9 cm.. The endometrial complex measures 3 mm. The right ovary is not visualized. Left ovary measures 2.7 x 1.8 x 1.9 cm with normal flow. No discre te ovarian mass or adnexal mass. There is no free fluid in the pelvis. There are no abnormal masses seen on either side. IMPRESSION: 1. Enlarged fibroid uterus, largest discrete fibroid measuring 2.9 cm. Reviewed, dictated and finalized at location A.
--- NOTE | 2023-07-28 11:10 | PC.NURSE ---
This patient, Nicole Hamilton, was admitted to [facility] S[facility] Room 306-02. Patient/family oriented to hospital policies and general routines including ID bracelet, bed and alarms, visiting hours, pain management, procedures, bathroom and other care routines, personal items, smoking policy, room service/diet, and visiting hours. Information on how to activate the Rapid Response Team has been discussed. Patient/Family are encouraged to report perceived risks to care and to ask questions if they do not understand what they are told or what they should do.
[2023-07-28 11:52] VITALS: BP 173/70; PULSE 55; RESP 16; TEMP 36.4; O2SAT 99
[2023-07-28 13:31] VITALS: BMI 38.7
[2023-07-28] MEDS: DEXTROSE 5%/0.9% SOD CHL 1,000 ML 100 ML IV CONT (14:09)
[2023-07-28] MEDS: CEFEPIME 2 GM/NS 50 ML 2 GM/50 ML BAG IVPB ×2 (14:09→20:27)
--- NOTE | 2023-07-28 14:10 | PM.IMHP ---
H&P: HPI History of Present Illness Date/Time: 07/28/23 14:10 Chief Complaint: abdominal pain, nausea, vomiting Narrative: Nicole Hamilton is a 52 year old female with a PMH of CKD stage III, HTN, cystitis, uterine ablation x 2, and CLL. She was diagnosed with CLL in 2018 and follows with oncology at [facility]. She completed chemotherapy treatments in April of this year with gazyva and venclexta. She recently had a bone marrow biopsy on 06/26 which showed that she is in remission. Since her bone marrow biopsy she has been having difficulty with oral intake. She reports feeling generally unwell, having nausea and vomiting where she is unable to keep anything down and has lost approximately 30 pounds in the last 3-4 weeks. She also reports epigastric abdominal pain that radiates through the left and right quadrants and through to her back. She has not had a fever but reports flushing and sweating. She says that food doesn't taste good and when she does eat or drink she vomits the contents. She is able to keep water down. She denies diarrhea or constipation. She was seen in [place] ED on 07/18 with similar complaints and was discharge home with a diagnosis of? UTI and started on Augmentin. She presented again to [place] ED on 07/27 with abdominal pain, nausea, and vomiting. In the ED she had a leukocytosis of 17.8, hemoglobin 10.7, platelets 707, Cr 1.52, lactic 3.0, and transaminitis. She received 1 L of IVF bolus for her lactic. No blood cultures drawn. Repeat lactic was normal. Her U/A was concerning for infection so she was given a dose of Rocephin and IV fluids. Her CT abdomen and pelvis with contrast showed the following, IMPRESSION: 1. Large geographic regions of minimal if any enhancement in the spleen. It is unclear this is due to splenic infarct, phase of contrast or response to treatment of reported prior leukemia with significant decrease in size of the patient markedly enlarged, now mildly enlarged spleen. 2. Cholelithiasis. 3. Small sliding-type hiatal hernia. 4. Significant interval enlargement of the fundus of the uterus suggesting a possible occult uterine fibroid. Recommend follow-up pelvic ultrasound for further evaluation. She was admitted to [facility]-surg floor for further monitoring, IV hydration, IV antibiotics, and further work up of abdominal pain. Given her CLL history and unclear infectious etiology I plan to transfer to [facility] for further assistance with consulting services as well as need for MRI imaging. She has been accepted by Dr Cosme and the patient is agreeable to transfer. Review of Systems Review of Systems: All systems reviewed & are unremarkable except as noted in HPI and below PMFSH Past Medical History Medical History CLL (chronic lymphocytic leukemia) DVT (deep venous thrombosis) History of arterial occlusion History of endometrial biopsy Hypertension Nicotine dependence, cigarettes, uncomplicated Obesity Pyoderma gangrenosa Superficial granulomatous pyoderma Vasculitis Surgical History Surgical History History of adenoidectomy Hx of tonsillectomy Family History Family History Father CHF (congestive heart failure) Grandparent Colon cancer Sibling Pancreatic cancer Sibling Pancreatic cancer Social History Social History Smoking packs per day: 0.5 Smoking cigarettes per day: 10.0 Years smoked: 30 Smoking pack-years: 15.00 Smoking status: Current every day smoker Tobacco type: cigarettes Second hand tobacco smoke exposure: Yes Alcohol intake: former Substance use: never Substance use type: marijuana Other substance usage details: IN HER 20'S Lack of Transportation: No Lack of Food: Never True Current Housing: I Have Housing Concerned Abou
[2023-07-28] MEDS: metroNIDAZOLE 500 MG/ISO 100ML 500 MG/100 ML BAG 100 MG IVPB ×2 (15:04→21:20)
[2023-07-28 16:00] VITALS: BP 156/70; PULSE 98; RESP 16; TEMP 37.5; O2SAT 99
[2023-07-28] MEDS: VANCOMYCIN 1,250 MG/NS 250 ML 1,250 MG/250 ML BAG 166.67 MG IVPB ×2 (16:08→17:40)
[2023-07-28] MEDS: MORPHINE SULFATE (*CRX) 4 MG/ML INJ IV PUSH (16:35)
[2023-07-28] MEDS: SUCRALFATE 1 GM TABLET PO (16:35)
--- NOTE | 2023-07-28 16:54 | PDONCCN ---
HPI - Date of Consult Date/Time: 07/28/23 16:54 Requesting Physician: Hans Cosme MD Primary Care Provider: Ari Elmore, - Consult Narrative Reason for consult: CLL with possible splenic infarction Narrative: Nicole Hamilton is a 52 year old female with history of CLL diagnosed in 2018. She has been followed by oncologist at [facility]. Patient completed treatment with gets I have I in October of 2022 and venetoclax in April 2023. She had bone marrow biopsy done on June 26 that showed remission. Patient also has a history of chronic kidney stage 3 disease hypertension cystitis and you tried ablation done about 3 weeks ago for heavy menstrual bleeding. Patient was on Eliquis until April for history of right lower extremity DVT diagnosed 2 years ago and previous history of left lower extremity DVT diagnosed in 2016. Eliquis was discontinued due to heavy menstrual bleeding. She denies any further menstrual bleeding after the uterine ablation. She came into the hospital with abdominal discomfort nausea and vomiting and almost 30 lb weight loss for recently. Imaging studies was performed that showed large geographic region of minimal enhancement in the spleen unclear this could be due to splenic infarction or reported affects of leukemia treatment with mildly enlarged spleen. There was significant interval enlargement of fundus of the uterus suggesting possible occult uterine fibroid. Other labs showed WBC count of 16.9 with hemoglobin of 9.1 and platelets were of 581,000. Review of Systems - Review of Systems All systems reviewed & are unremarkable except as noted in HPI and [facility] Medical History: Medical History (Last Reviewed 07/28/23 @ 14:11 by Che Navarro APRN) CLL (chronic lymphocytic leukemia) DVT (deep venous thrombosis) History of arterial occlusion History of endometrial biopsy Hypertension Nicotine dependence, cigarettes, uncomplicated Obesity Pyoderma gangrenosa Superficial granulomatous pyoderma Vasculitis Surgical History: Surgical History (Last Reviewed 07/28/23 @ 14:12 by Che Navarro APRN) History of adenoidectomy Hx of tonsillectomy Family History: Family History (Last Reviewed 07/28/23 @ 14:12 by Che Navarro APRN) Father CHF (congestive heart failure) Grandparent Colon cancer Sibling Pancreatic cancer Sibling Pancreatic cancer - Social History Social History: Social History (Last Reviewed 07/28/23 @ 14:12 by Che Navarro APRN) Alcohol Use: Alcohol intake: former Substance Use: Substance use: never Substance use type: marijuana Other substance usage details: IN HER 20'S Others: Spiritual care concerns: No Living Arrangements: Living arrangements: with family Oppucation/Education: Occupation/Education: occupation Smoking Status: Smoking status: Current every day smoker Tobacco type: cigarettes Second hand tobacco smoke exposure: Yes Smoking Pack-years: Smoking packs per day: 0.5 Smoking cigarettes per day: 10.0 Years smoked: 30 Smoking pack-years: 15.00 Social Determinants of Health: Has the Lack of Transportation Kept You From Medical Appointments or From Getting Medications?: No Within the Past 12 Months, Were You Worried Whether Your Food Would Run Out Before You Got Money to Buy More?: Never True What is Your Housing Situation Today?: I Have Housing Are You Worried That in the Next 2 Months, You May Not Have Your Own Housing to Live In?: No Do You Have Trouble Paying Your Heating Or Electricity Bill?: No Do You Have Trouble Paying For Medicines?: No Are You Currently Unemployed and Looking for Work?: No Highest Level of Education Completed: Associate Degree Do You Have Trouble With Childcare or the Care of a Family Member?: No Exam - Vital Signs Vital Signs - 24 hr 07/28/23 11:15 07/28/23 11:52 07/10
[2023-07-28 20:00] VITALS: BP 125/58; PULSE 74; RESP 17; TEMP 36.5; O2SAT 100
[2023-07-28] MEDS: APIXABAN 5 MG TABLET PO (20:27)
[2023-07-29] VITALS (7 sets, daily range): BP systolic 134–162; BP diastolic 71–85; PULSE 54–64; RESP 12–20; TEMP 36.4–38.2; O2SAT 97–100
[2023-07-29] MEDS: CEFEPIME 2 GM/NS 50 ML 2 GM/50 ML BAG IVPB ×3 (05:06→21:00)
[2023-07-29] MEDS: DEXTROSE 5%/0.9% SOD CHL 1,000 ML 100 ML IV CONT ×2 (05:06→12:17)
[2023-07-29] MEDS: metroNIDAZOLE 500 MG/ISO 100ML 500 MG/100 ML BAG 100 MG IVPB ×3 (05:48→21:44)
[2023-07-29 06:51] LABS: Basophils Absolute Auto 0.1 K/mm3 (0.0-0.1); Eosinophils Absolute Auto 0.3 K/mm3 (0-0.3); Eosinophils Percent Auto 2.5 % (0-4.4); Hematocrit 30.1 % (37.0-47.0); Hemoglobin 8.5 g/dL (12.0-15.0); Immature Granulocyte Absolute 0.05 K/mm3 (0.00-0.031); Immature Granulocyte Percent A 0.4 % (0-0.5); Lymphocytes Percent Auto 9.1 % (18.3-44.2); Mean Corpuscular HGB Conc 28.2 g/dl (32-36); Mean Corpuscular Hemoglobin 22.7 pg (26-34); Mean Corpuscular Volume 80.3 fl (80-100); Mean Platelet Volume 9.1 fl (7.4-10.4); Monocytes Absolute Auto 0.9 K/mm3 (0.1-0.6); Monocytes Percent Auto 7.3 % (2.6-8.5); Neutrophils Absolute Auto 9.7 K/mm3 (1.3-6.7); Neutrophils Percent Auto 79.7 % (45.5-73.1); Platelet Count Result 508 k/mm3 (150-375); Red Blood Count 3.75 M/mm3 (4.2-5.4); Red Cell Distribution Width 18.9 % (11.5-14.5); White Blood Count 12.1 K/mm3 (4.5-10.0)
[2023-07-29 07:02] LABS: Alanine Aminotransferase 288 U/L (6-35); Albumin Level 2.9 g/dL (3.5-5.1); Alkaline Phosphatase 77 U/L (38-126); Anion Gap 1 mmol/L (8-16); Aspartate Amino Transferase 169 U/L (14-36); Bilirubin,Total 0.4 mg/dL (0.2-1.3); Blood Urea Nitrogen 10 mg/dL (7-17); Carbon Dioxide 25 mmol/L (22-30); Chloride 110 mmol/L (98-107); Estimated CRCL calculation 68 ml/min; Estimated Glomerular Filt Rate 53; Glucose 89 mg/dL (65-110); Magnesium 1.6 mg/dL (1.6-2.3); Potassium 3.4 mmol/L (3.4-5.0); Sodium 136 mmol/L (137-145)
[2023-07-29 07:03] LABS: Iron 18 ug/dL (37-170)
[2023-07-29 07:12] LABS: Percent Iron Saturation 6 % (20-50)
[2023-07-29 08:06] LABS: Folic Acid 6.9 ng/mL (2.76->20)
--- NOTE | 2023-07-29 08:45 | P.PNIM_ITS ---
Progress Note: A&P Assessment and Plan (1) Splenic infarct: Code(s): D73.5 - Infarction of spleen Status: Acute Assessment and Plan: Heme-Onc following for concerns of splenic infarct versus abscess * Platelets [id number] * Recommend starting on Eliquis 5 mg b.i.d. * Will monitor for bleeding as patient has a history of uterine bleeding requiring 2 ablations * She had previously been on Eliquis for bilateral lower extremity DVT's (2) Abdominal pain: Code(s): R10.9 - Unspecified abdominal pain Status: Acute Assessment and Plan: Patient reports intermittent, severe mid-epigastric abdominal pain that radiates to upper left and right quadrants and through to her back, accompanied by nausea and vomiting. * Pain has been going on for the last 3 weeks but has worsened this last week * She was seen in the ED at [place] on 07/18 and dx with UTI. She was sent home with a rx for Augmentin. * Represents to ED at [place] on 07/27 with a continued abdominal pain * leukocytosis of 17, anemia hgb 10.4, CR 1.5, transaminitis * IV cefepime, flagyl, and vancomycin for unknown infectious etiology. Added vanco given recent hospitalization in June and recent abx with cefdinir and Augmentin. * U/a was concerning for infection but the sample had moderate squamous cells * Concerns for possible splenic abscess/infarct vs cholecystics however t bili not elevated?verses UTI * Awaiting MRSA swab to deescalate vanco * Blood in urine cultures pending * Tylenol level is normal * Hepatic panel pending * Morphine for pain * Zofran for nausea * CT abdomen shows, IMPRESSION: 1. Large geographic regions of minimal if any enhancement in the spleen. It is unclear this is due to splenic infarct, phase of contrast or response to treatment of reported prior leukemia with significant decrease in size of the patient markedly enlarged, now mildly enlarged spleen. 2. Cholelithiasis. 3. Small sliding-type hiatal hernia. 4. Significant interval enlargement of the fundus of the uterus suggesting a possible occult uterine fibroid. Recommend follow-up pelvic ultrasound for further evaluation (3) Transaminitis: Code(s): R74.01 - Elevation of levels of liver transaminase levels Status: Acute Assessment and Plan: AST 153-->143 ALT 394-->315 T bili normal 0.2 07/28 liver enzymes are starting to decrease (4) UTI (urinary tract infection): Qualifiers: Hematuria presence: without hematuria Urinary tract infection type: ac [place] cystitis Qualified Code(s): N30.00 - Acute cystitis without hematuria Code(s): N39.0 - Urinary tract infection, site not specified Status: Acute Assessment and Plan: Seen in [place] ED on 07/18 with UTI and was d/c home with Augmentin * U/A on admission to ED 07/27 was concerning for infection but also had moderate squamous cells. * She was given a dose of Rocephin. Then antibiotic spectrum was broadened due to concerns for splenic abscess * Urine cultures and blood cultures pending (5) Hypertension: Qualifiers: Hypertension type: unspecified Qualified Code(s): I10 - Essential (primary) hypertension Code(s): I10 - Essential (primary) hypertension Status: Acute Assessment and Plan: HTN this admission. SBP are ranging 150-190/70-100 * continue lisinopril and metoprolol * prn hydralazine for SBP > 180 mm hg * Blood pressures are improved SBP ranging 120-160 on 07/29 (6) Nausea & vomiting: Qualifiers: Vomiting type: unspecified Qualified Code(s): R11.2 - Nausea with
--- NOTE | 2023-07-29 08:45 | PM.IMPN ---
Progress Note: A&P Assessment and Plan (1) Splenic infarct: Code(s): D73.5 - Infarction of spleen Status: Acute Assessment and Plan: Heme-Onc following for concerns of splenic infarct versus abscess Platelets [id number] Recommend starting on Eliquis 5 mg b.i.d. Will monitor for bleeding as patient has a history of uterine bleeding requiring 2 ablations She had previously been on Eliquis for bilateral lower extremity DVT's (2) Abdominal pain: Code(s): R10.9 - Unspecified abdominal pain Status: Acute Assessment and Plan: Patient reports intermittent, severe mid-epigastric abdominal pain that radiates to upper left and right quadrants and through to her back, accompanied by nausea and vomiting. Pain has been going on for the last 3 weeks but has worsened this last week She was seen in the ED at [place] on 07/18 and dx with UTI. She was sent home with a rx for Augmentin. Represents to ED at [facility] on 07/27 with a continued abdominal pain leukocytosis of 17, anemia hgb 10.4, CR 1.5, transaminitis IV cefepime, flagyl, and vancomycin for unknown infectious etiology. Added vanco given recent hospitalization in June and recent abx with cefdinir and Augmentin. U/a was concerning for infection but the sample had moderate squamous cells Concerns for possible splenic abscess/infarct vs cholecystics however t bili not elevated?verses UTI Awaiting MRSA swab to deescalate vanco Blood in urine cultures pending Tylenol level is normal Hepatic panel pending Morphine for pain Zofran for nausea CT abdomen shows, IMPRESSION: 1. Large geographic regions of minimal if any enhancement in the spleen. It is unclear this is due to splenic infarct, phase of contrast or response to treatment of reported prior leukemia with significant decrease in size of the patient markedly enlarged, now mildly enlarged spleen. 2. Cholelithiasis. 3. Small sliding-type hiatal hernia. 4. Significant interval enlargement of the fundus of the uterus suggesting a possible occult uterine fibroid. Recommend follow-up pelvic ultrasound for further evaluation (3) Transaminitis: Code(s): R74.01 - Elevation of levels of liver transaminase levels Status: Acute Assessment and Plan: AST 153-->143 ALT 394-->315 T bili normal 0.2 07/28 liver enzymes are starting to decrease (4) UTI (urinary tract infection): Qualifiers: Hematuria presence: without hematuria Urinary tract infection type: acute cystitis Qualified Code(s): N30.00 - Acute cystitis without hematuria Code(s): N39.0 - Urinary tract infection, site not specified Status: Acute Assessment and Plan: Seen in [place] [facility] ED on 07/18 with UTI and was d/c home with Augmentin U/A on admission to ED 07/27 was concerning for infection but also had moderate squamous cells. She was given a dose of Rocephin. Then antibiotic spectrum was broadened due to concerns for splenic abscess Urine cultures and blood cultures pending (5) Hypertension: Qualifiers: Hypertension type: unspecified Qualified Code(s): I10 - Essential (primary) hypertension Code(s): I10 - Essential (primary) hypertension Status: Acute Assessment and Plan: HTN this admission. SBP are ranging 150-190/70-100 continue lisinopril and metoprolol prn hydralazine for SBP > 180 mm hg Blood pressures are improved SBP ranging 120-160 on 07/29 (6) Nausea & vomiting: Qualifiers: Vomiting type: unspecified Qualified Code(s): R11.2 - Nausea with vomiting, unspecified Code(s): R11.2 - Nausea with vomiting, unspecified Status: Acute Assessment and Plan: This has been persistent over the last 3 weeks per patient. she is unable to keep food down. She is able to drink water though. Zofran for nausea as needed She reports 30 lb weight loss in the last 3-4 weeks. Consult with dietitian Currently on D
[2023-07-29] MEDS: APIXABAN 5 MG TABLET PO ×2 (09:02→20:54)
[2023-07-29] MEDS: PANTOPRAZOLE 40 MG TABLET PO (09:02)
[2023-07-29] MEDS: METOPROLOL TARTRATE 25 MG TABLET PO (09:02)
[2023-07-29] MEDS: SUCRALFATE 1 GM TABLET PO ×3 (09:02→17:35)
[2023-07-29] MEDS: allopurinoL 100 MG TABLET PO (09:03)
[2023-07-29] MEDS: lisinopriL 20 MG TABLET 40 MG PO (09:03)
[2023-07-29] MEDS: ACETAMINOPHEN 325 MG TABLET 650 MG PO (15:42)
[2023-07-29] MEDS: MORPHINE SULFATE (*CRX) 4 MG/ML INJ IV PUSH (23:35)
[2023-07-30] VITALS: BP 149/79; PULSE 60; RESP 16; TEMP 37.1; O2SAT 98
[2023-07-30 04:00] VITALS: BP 153/78; PULSE 53; RESP 16; TEMP 36.9; O2SAT 99
[2023-07-30 06:08] LABS: Basophils Absolute Auto 0.2 K/mm3 (0.0-0.1); Basophils Percent Auto 1.3 % (0.2-1.2); Eosinophils Absolute Auto 0.5 K/mm3 (0-0.3); Eosinophils Percent Auto 3.9 % (0-4.4); Hematocrit 28.9 % (37.0-47.0); Hemoglobin 8.2 g/dL (12.0-15.0); Immature Granulocyte Absolute 0.05 K/mm3 (0.00-0.031); Immature Granulocyte Percent A 0.4 % (0-0.5); Mean Corpuscular HGB Conc 28.4 g/dl (32-36); Mean Corpuscular Hemoglobin 22.5 pg (26-34); Mean Corpuscular Volume 79.4 fl (80-100); Mean Platelet Volume 9.7 fl (7.4-10.4); Monocytes Absolute Auto 0.7 K/mm3 (0.1-0.6); Monocytes Percent Auto 6.2 % (2.6-8.5); Neutrophils Absolute Auto 8.4 K/mm3 (1.3-6.7); Neutrophils Percent Auto 71.2 % (45.5-73.1); Platelet Count Result 511 k/mm3 (150-375); Red Blood Count 3.64 M/mm3 (4.2-5.4); Red Cell Distribution Width 18.8 % (11.5-14.5); White Blood Count 11.8 K/mm3 (4.5-10.0)
[2023-07-30 06:27] LABS: Alanine Aminotransferase 190 U/L (6-35); Albumin Level 2.8 g/dL (3.5-5.1); Alkaline Phosphatase 77 U/L (38-126); Anion Gap 7 mmol/L (8-16); Aspartate Amino Transferase 91 U/L (14-36); Bilirubin,Total 0.3 mg/dL (0.2-1.3); Blood Urea Nitrogen 12 mg/dL (7-17); Calcium 7.9 mg/dL (8.4-10.2); Carbon Dioxide 22 mmol/L (22-30); Chloride 109 mmol/L (98-107); Estimated CRCL calculation 62 ml/min; Estimated Glomerular Filt Rate 48; Glucose 136 mg/dL (65-110); Potassium 3.2 mmol/L (3.4-5.0); Sodium 138 mmol/L (137-145)
[2023-07-30] MEDS: CEFEPIME 2 GM/NS 50 ML 2 GM/50 ML BAG IVPB (06:28)
[2023-07-30 06:34] LABS: Platelet Estimate Increased (Adequate)
[2023-07-30 06:35] LABS: Anisocytosis 1+ (NORMAL); Hypochromasia 1+ (NORMAL)
[2023-07-30 06:36] LABS: Schistocytes None Seen (NORMAL)
[2023-07-30] MEDS: metroNIDAZOLE 500 MG/ISO 100ML 500 MG/100 ML BAG 100 MG IVPB (07:04)
[2023-07-30 07:52] VITALS: BP 172/72; PULSE 54; RESP 18; TEMP 37.1; O2SAT 98
[2023-07-30 08:00] VITALS: PULSE 54; RESP 18; O2SAT 98
[2023-07-30 08:06] LABS: CRP 4.5 mg/dL (<1.0)
[2023-07-30] MEDS: SUCRALFATE 1 GM TABLET PO (08:10)
[2023-07-30] MEDS: PANTOPRAZOLE 40 MG TABLET PO (08:11)
[2023-07-30] MEDS: METOPROLOL TARTRATE 25 MG TABLET PO (08:11)
[2023-07-30] MEDS: lisinopriL 20 MG TABLET 40 MG PO (08:11)
[2023-07-30] MEDS: allopurinoL 100 MG TABLET PO (08:11)
[2023-07-30] MEDS: APIXABAN 5 MG TABLET PO (08:11)
--- NOTE | 2023-07-30 10:20 | P.DS_ITS ---
DS: Admitting Diagnosis Discharge Date 07-30 Admitting Diagnosis Nausea, vomiting, abdominal pain DS: Discharge Diagnosis Discharge Diagnosis (1) Splenic infarct: Code(s): D73.5 - Infarction of spleen Status: Acute Assessment and Plan: Heme-Onc following for concerns of splenic infarct versus abscess * Platelets [id number] * Recommend starting on Eliquis 5 mg b.i.d. * Will monitor for bleeding as patient has a history of uterine bleeding requiring 2 ablations * She had previously been on Eliquis for bilateral lower extremity DVT's (2) Abdominal pain: Code(s): R10.9 - Unspecified abdominal pain Status: Acute Assessment and Plan: Patient reports intermittent, severe mid-epigastric abdominal pain that radiates to upper left and right quadrants and through to her back, accompanied by nausea and vomiting. * Pain has been going on for the last 3 weeks but has worsened this last week * She was seen in the ED at [place] on 07/18 and dx with UTI. She was sent home with a rx for Augmentin. * Represents to ED at [place] on 07/27 with a continued abdominal pain * leukocytosis of 17, anemia hgb 10.4, CR 1.5, transaminitis * IV cefepime, flagyl, and vancomycin for unknown infectious etiology. Added vanco given recent hospitalization in June and recent abx with cefdinir and Augmentin. * U/a was concerning for infection but the sample had moderate squamous cells * Concerns for possible splenic abscess/infarct vs cholecystics however t bili not elevated?verses UTI * Awaiting MRSA swab to deescalate vanco * Blood in urine cultures pending * Tylenol level is normal * Hepatic panel pending * Morphine for pain * Zofran for nausea * CT abdomen shows, IMPRESSION: 1. Large geographic regions of minimal if any enhancement in the spleen. It is unclear this is due to splenic infarct, phase of contrast or response to treatment of reported prior leukemia with significant decrease in size of the patient markedly enlarged, now mildly enlarged spleen. 2. Cholelithiasis. 3. Small sliding-type hiatal hernia. 4. Significant interval enlargement of the fundus of the uterus suggesting a possible occult uterine fibroid. Recommend follow-up pelvic ultrasound for furth er evaluation (3) Transaminitis: Code(s): R74.01 - Elevation of levels of liver transaminase levels Status: Acute Assessment and Plan: AST 153-->143 ALT 394-->315 T bili normal 0.2 07/28 liver enzymes are starting to decrease (4) UTI (urinary tract infection): Qualifiers: Hematuria presence: without hematuria Urinary tract infection type: acute cystitis Qualified Code(s): N30.00 - Acute cystitis without hematuria Code(s): N39.0 - Urinary tract infection, site not specified Status: Acute Assessment and Plan: Seen in [place] ED on 07/18 with UTI and was d/c home with Augmentin * U/A on admission to ED 07/27 was concerning for infection but also had moderate squamous cells. * She was given a dose of Rocephin. Then antibiotic spectrum was broadened due to concerns for splenic abscess * Urine cultures and blood cultures pending (5) Hypertension: Qualifiers: Hypertension type: unspecified Qualified Code(s): I10 - Essential (primary) hypertension Code(s): I10 - Essential (primary) hypertension Status: Acute Assessment and Plan: HTN this admission. SBP are ranging 150-190/70-100 * continue lisinopril and metoprolol * prn hydralazine for SBP > 180 mm hg * Blood pressures are improved SBP ranging 120-160 on 07/10
--- NOTE | 2023-07-30 10:20 | PM.DS ---
DS: Admitting Diagnosis Discharge Date 07-30 Admitting Diagnosis Nausea, vomiting, abdominal pain DS: Discharge Diagnosis Discharge Diagnosis (1) Splenic infarct: Code(s): D73.5 - Infarction of spleen Status: Acute Assessment and Plan: Heme-Onc following for concerns of splenic infarct versus abscess Platelets [id number] Recommend starting on Eliquis 5 mg b.i.d. Will monitor for bleeding as patient has a history of uterine bleeding requiring 2 ablations She had previously been on Eliquis for bilateral lower extremity DVT's (2) Abdominal pain: Code(s): R10.9 - Unspecified abdominal pain Status: Acute Assessment and Plan: Patient reports intermittent, severe mid-epigastric abdominal pain that radiates to upper left and right quadrants and through to her back, accompanied by nausea and vomiting. Pain has been going on for the last 3 weeks but has worsened this last week She was seen in the ED at [place] on 07/18 and dx with UTI. She was sent home with a rx for Augmentin. Represents to ED at [place] on 07/27 with a continued abdominal pain leukocytosis of 17, anemia hgb 10.4, CR 1.5, transaminitis IV cefepime, flagyl, and vancomycin for unknown infectious etiology. Added vanco given recent hospitalization in June and recent abx with cefdinir and Augmentin. U/a was concerning for infection but the sample had moderate squamous cells Concerns for possible splenic abscess/infarct vs cholecystics however t bili not elevated?verses UTI Awaiting MRSA swab to deescalate vanco Blood in urine cultures pending Tylenol level is normal Hepatic panel pending Morphine for pain Zofran for nausea CT abdomen shows, IMPRESSION: 1. Large geographic regions of minimal if any enhancement in the spleen. It is unclear this is due to splenic infarct, phase of contrast or response to treatment of reported prior leukemia with significant decrease in size of the patient markedly enlarged, now mildly enlarged spleen. 2. Cholelithiasis. 3. Small sliding-type hiatal hernia. 4. Significant interval enlargement of the fundus of the uterus suggesting a possible occult uterine fibroid. Recommend follow-up pelvic ultrasound for further evaluation (3) Transaminitis: Code(s): R74.01 - Elevation of levels of liver transaminase levels Status: Acute Assessment and Plan: AST 153-->143 ALT 394-->315 T bili normal 0.2 07/28 liver enzymes are starting to decrease (4) UTI (urinary tract infection): Qualifiers: Hematuria presence: without hematuria Urinary tract infection type: acute cystitis Qualified Code(s): N30.00 - Acute cystitis without hematuria Code(s): N39.0 - Urinary tract infection, site not specified Status: Acute Assessment and Plan: Seen in [place] ED on 07/18 with UTI and was d/c home with Augmentin U/A on admission to ED 07/27 was concerning for infection but also had moderate squamous cells. She was given a dose of Rocephin. Then antibiotic spectrum was broadened due to concerns for splenic abscess Urine cultures and blood cultures pending (5) Hypertension: Qualifiers: Hypertension type: unspecified Qualified Code(s): I10 - Essential (primary) hypertension Code(s): I10 - Essential (primary) hypertension Status: Acute Assessment and Plan: HTN this admission. SBP are ranging 150-190/70-100 continue lisinopril and metoprolol prn hydralazine for SBP > 180 mm hg Blood pressures are improved SBP ranging 120-160 on 07/29 (6) Nausea & vomiting: Qualifiers: Vomiting type: unspecified Qualified Code(s): R11.2 - Nausea with vomiting, unspecified Code(s): R11.2 - Nausea with vomiting, unspecified Status: Acute Assessment and Plan: This has been persistent over the last 3 weeks per patient. she is unable to keep food down. She is able to drink water though. Zofran for nausea
[2023-07-30 11:43] VITALS: BP 154/71; PULSE 61; RESP 18; TEMP 36.3; O2SAT 98
== END 2023-07-30 11:55 | disposition home or self-care (01) ==
PROVIDERS: Nurse Practitioner Acute Care; Admitting Provider Internal Medicine; PCP Family Medicine; Visit Provider Internal Medicine
DX: D73.5 Infarction of spleen (principal); D25.9 Leiomyoma of uterus, unspecified; K80.20 Calculus of gallbladder without cholecystitis without obstruction; C91.11 Chronic lymphocytic leukemia of B-cell type in remission; K44.9 Diaphragmatic hernia without obstruction or gangrene; N30.00 Acute cystitis without hematuria; N92.0 Excessive and frequent menstruation with regular cycle; N85.2 Hypertrophy of uterus; R63.4 Abnormal weight loss; Z68.38 Body mass index [BMI] 38.0-38.9, adult; R74.01 Elevation of levels of liver transaminase levels; I12.9 Hypertensive chronic kidney disease with stage 1 through stage 4 chronic kidney disease, or unspecified chronic kidney disease; D63.1 Anemia in chronic kidney disease; N18.30 Chronic kidney disease, stage 3 unspecified; F41.9 Anxiety disorder, unspecified; F17.210 Nicotine dependence, cigarettes, uncomplicated; Z98.890 Other specified postprocedural states; F12.90 Cannabis use, unspecified, uncomplicated; Z79.01 Long term (current) use of anticoagulants; Z86.718 Personal history of other venous thrombosis and embolism; Z92.21 Personal history of antineoplastic chemotherapy; Z80.0 Family history of malignant neoplasm of digestive organs
CPT/HCPCS: 36415; 76856; 80053; 80202; 82607; 82746; 83540; 83550; 83735; 85025; 86140; 87081; 96365; 96366; 96367; 96375; 96376; A9270; G0378; G0379; J0692; J1756; J1836; J2270; J3370; J7042

== ENCOUNTER 2023-08-01 11:43 | Emergency (ER) | payer MEDICARE, MEDICAID, SELFPAY ==
--- NOTE | ~2023-08-01 | CT_ITS ---
EXAMINATION: CT abdomen pelvis w con DATE: 08/01/2023 13:41 INDICATION: Epigastric pain. TECHNIQUE: Computed tomography (CT) of the abdomen and pelvis was performed with 100 cc Omnipaque 350 intravenous contrast. The dose-length product was 1551.42 mGy-cm. Automated exposure control and ite rative reconstruction technique were employed. COMPARISON: CT dated 07/27/2023. FINDINGS: Lung bases are unremarkable. Heart size normal. No significant pleural or pericardial effus ion. Gallstones. Stable geographic areas of hypoperfusion of the spleen which is enlarged. Bilateral renal atrophy. Left renal cysts. The pancreas, adrenal glands and right kidney are unremarkable. Nono bstructive bowel gas pattern. Colonic diverticulosis without evidence for diverticulitis. Nonobstruct jaime bowel pattern. Enlarged fibroid uterus. No significant vascular abnormality. No lymphadenopathy. No evidence for diverticulitis. IMPRESSION: 1. Stable geographic hypoperfusion of the spleen which is enlarged. Differential diagnosis includes s plenic infarctions versus treatment response of known leukemia. 2: Cholelithiasis. Reviewed, dictated and finalized at location L. IMPRESSION: 1. Stable geographic hypoperfusion of the spleen which is enlarged. Differentia l diagnosis includes splenic infarctions versus treatment response of known chuyita kemia. 2: Cholelithiasis.
[2023-08-01 11:44] VITALS: BP 117/63; PULSE 70; RESP 20; TEMP 36.3; O2SAT 100
[2023-08-01 12:03] LABS: Basophils Absolute Auto 0.2 K/mm3 (0.0-0.1); Basophils Percent Auto 0.8 % (0.2-1.2); Eosinophils Absolute Auto 0.2 K/mm3 (0-0.3); Eosinophils Percent Auto 0.9 % (0-4.4); Hematocrit 35.1 % (37.0-47.0); Hemoglobin 9.9 g/dL (12.0-15.0); Immature Granulocyte Absolute 0.09 K/mm3 (0.00-0.031); Immature Granulocyte Percent A 0.5 % (0-0.5); Lymphocytes Absolute Auto 2.09 K/mm3 (0.9-3.2); Lymphocytes Percent Auto 11.6 % (18.3-44.2); Mean Corpuscular HGB Conc 28.2 g/dl (32-36); Mean Corpuscular Hemoglobin 22.6 pg (26-34); Mean Corpuscular Volume 80.1 fl (80-100); Mean Platelet Volume 9.7 fl (7.4-10.4); Monocytes Absolute Auto 0.9 K/mm3 (0.1-0.6); Monocytes Percent Auto 4.7 % (2.6-8.5); Neutrophils Absolute Auto 14.6 K/mm3 (1.3-6.7); Neutrophils Percent Auto 81.5 % (45.5-73.1); Platelet Count Result 642 k/mm3 (150-375); Red Blood Count 4.38 M/mm3 (4.2-5.4); Red Cell Distribution Width 20.1 % (11.5-14.5)
[2023-08-01 12:14] LABS: Alanine Aminotransferase 141 U/L (6-35); Albumin Level 3.6 g/dL (3.5-5.1); Alkaline Phosphatase 82 U/L (38-126); Anion Gap 5 mmol/L (8-16); Aspartate Amino Transferase 81 U/L (14-36); Bilirubin,Total 0.4 mg/dL (0.2-1.3); Blood Urea Nitrogen 13 mg/dL (7-17); Calcium 8.7 mg/dL (8.4-10.2); Carbon Dioxide 24 mmol/L (22-30); Chloride 110 mmol/L (98-107); Estimated CRCL calculation 75 ml/min; Estimated Glomerular Filt Rate 59; Glucose 130 mg/dL (65-110); Lipase 138 U/L (23-300); Platelet Estimate Increased (Adequate); Potassium 3.3 mmol/L (3.4-5.0); Sodium 139 mmol/L (137-145)
[2023-08-01 12:15] LABS: Hypochromasia 1+ (NORMAL); Ovalocytes 1+ (NORMAL); Schistocytes None Seen (NORMAL)
--- NOTE | 2023-08-01 13:07 | ED.ABDPAIN ---
HPI - Abdominal Pain General Chief Complaint: Abdominal Pain <Vandana Plaza PA-C - Last Filed: 08/01/23 18:17> Stated Complaint: abdominal and back pain <Vandana Plaza PA-C - Last Filed: 08/01/23 18:17> Time Seen by Provider: 08/01/23 13:43 <Vandana Plaza PA-C - Last Filed: 08/01/23 18:17> Source: patient <Vandana Plaza PA-C - Last Filed: 08/01/23 18:17> Mode of arrival: ambulatory <ALIN Goldman Last Filed: 08/01/23 18:17> Limitations: no limitations <Vandana Plaza PA-C - Last Filed: 08/01/23 18:17> History of Present Illness HPI narrative: This is a 52-year-old female that presents to the emergency department for epigastric pain. Ongoing since last night. Report recently being hospitalized for splenic infarct. Started on Eliquis for this. Today she started to have worsening epigastric pain and nausea which prompted her to be seen again. Denies fevers, vomiting, diarrhea, or dysuria. <Vandana Plaza PA-C - Last Filed: 08/01/23 18:17> This is a 52-year-old female that presents to the emergency department for epigastric pain. Ongoing since last night. Report recently being hospitalized for splenic infarct. Started on Eliquis for this. Today she started to have worsening epigastric pain and nausea which prompted her to be seen again. Denies fevers, diarrhea, or dysuria. States she has been taking her ciprofloxacin as prescribed. States that she was diagnosed with pyelonephritis while she was hospitalized. States that she had an episode of emesis a short while ago now her nausea does feel improved. <Zulay Holguin MD - Last Filed: 08/03/23 15:38> Related Data Home Medications: Home Medications Medication Instructions Recorded Confirmed norethindrone acetate 5 mg tablet 5 mg PO BID 06/29/23 07/28/23 metoprolol tartrate 25 mg tablet 25 mg PO DAILY 07/11/23 07/28/23 <Vandana Plaza PA-C - Last Filed: 08/01/23 18:17> Allergies/Adverse Reactions: Allergies Allergy/AdvReac Type Severity Reaction Status Date / Time gentian jake Allergy Rash Verified 07/28/23 12:06 Tetracyclines AdvReac Other Verified 07/28/23 12:06 <Vandana Plaza PA-C - Last Filed: 08/01/23 18:17> Review of Systems Review of Systems: CONSTITUTIONAL: Denies fever GASTROINTESTINAL: Reports abdominal pain, nausea. Denies vomiting, or diarrhea. GENITOURINARY: Denies dysuria or hematuria. <Vandana Plaza PA-C - Last Filed: 08/01/23 18:17> All systems reviewed & are unremarkable except as noted in HPI and below <Vandana Plaza PA-C - Last Filed: 08/01/23 18:17> [facility] Past Medical History Medical History: Medical History CLL (chronic lymphocytic leukemia) DVT (deep venous thrombosis) History of arterial occlusion History of endometrial biopsy Hypertension Nicotine dependence, cigarettes, uncomplicated Obesity Pyoderma gangrenosa Superficial granulomatous pyoderma Vasculitis <Vandana Plaza PA-C - Last Filed: 08/01/23 18:17> Surgical History Surgical History: Surgical History History of adenoidectomy Hx of tonsillectomy <Vandana Plaza PA-C - Last Filed: 08/01/23 18:17> Family History Family History: Family History Father CHF (congestive heart failure) Grandparent Colon cancer Sibling Pancreatic cancer Sibling Pancreatic cancer <ALIN Goldman Last Filed: 08/01/23 18:17> Social History Social History: Social History Smoking packs per day: 0.5 Smoking cigarettes per day: 10.0 Years smoked: 30 Smoking pack-years: 15.00 Smoking status: Current every day smoker Tobacco type: cigarettes Second hand tobacco smoke exposure: Yes Alcohol intake: former
[2023-08-01 13:31] LABS: Appearance Urine Cloudy (Clear); Bacteria Urine None Seen /hpf; Bilirubin Urine Negative (Negative); Blood Urine 3+ (Negative); Color Urine Dark Yellow (Yellow); Glucose Urine UA Negative (Negative); Granular Casts Urine Present /lpf; Hyaline Casts Urine Present /lpf; Ketones Urine Negative (Negative); Leukocyte Esterase Ur 1+ LEU/UL (Negative); Nitrate Urine Negative (Negative); Protein Urine 4+ mg/dL (Negative); RBC Urine >100 /hpf (0-2); Specific Grav Ur 1.025 (1.001-1.035); Squamous Epithelial Cell Urine Few /hpf (Few); WBC Urine >100 /hpf
[2023-08-01 13:37] LABS: Add Urine Microscopic? YES
[2023-08-01] MEDS: ONDANSETRON INJ 4 MG/2 ML VIAL IV PUSH (14:35)
[2023-08-01] MEDS: FAMOTIDINE 20 MG/2 ML VIAL IV PUSH (14:35)
[2023-08-01] MEDS: SODIUM CHLORIDE 0.9% IV 1,000 ML 999 ML IV CONT (14:35)
[2023-08-01] MEDS: HYDROmorphone HCL INJ (*CRX) 1 MG/ML SYR IV PUSH (14:35)
[2023-08-01] MEDS: cefTRIAXone 2 GM/NS 100 ML 2 GM/100 ML BAG IVPB (14:35)
[2023-08-01 14:47] VITALS: BP 190/79; PULSE 53; RESP 12; O2SAT 98
[2023-08-01 15:02] VITALS: BP 210/79; PULSE 50; RESP 17; O2SAT 98
[2023-08-01 15:32] VITALS: BP 197/92; PULSE 57; RESP 20; O2SAT 98
[2023-08-01 16:02] VITALS: BP 187/81; PULSE 51; RESP 18; O2SAT 98
[2023-08-01 17:38] VITALS: BP 144/88; PULSE 80; RESP 16; O2SAT 98
== END 2023-08-01 17:39 | disposition home or self-care (01) ==
PROVIDERS: Emergency Medicine; Emergency Provider Emergency Medicine; PCP Family Medicine
DX: N30.00 Acute cystitis without hematuria (principal); R11.2 Nausea with vomiting, unspecified; R10.13 Epigastric pain; F17.210 Nicotine dependence, cigarettes, uncomplicated; I10 Essential (primary) hypertension
CPT/HCPCS: 36415; 74177; 80053; 81001; 81025; 83690; 85025; 87086; 96365; 96375; 99284; J0696; J1170; J2405; J7030; Q9967

== ENCOUNTER 2023-08-07 13:20 | Emergency (ER) | payer MEDICARE, MEDICAID, SELFPAY ==
[2023-08-07] VITALS (11 sets, daily range): BP systolic 158–184; BP diastolic 77–101; PULSE 53–88; RESP 13–19; TEMP 36.6–36.9; O2SAT 94–98
--- NOTE | ~2023-08-07 | US_ITS ---
EXAMINATION: US arterial duplex LE RT DATE: 08/07/2023 14:40 INDICATION: Acute right lower limb ischemia with sudden onset right leg pain and discoloration TECHNIQUE: Multiple grayscale and Doppler ultrasound images of the arteries of the right lower limb w ere obtained. COMPARISON: None FINDINGS: There is complete thrombosis of the right common femoral and superficial femoral arteries. The right profunda femoral artery is patent with monophasic waveform with brisk systolic upstroke and peak syst olic velocity 52 cm/s. Right popliteal, posterior tibial arteries and anterior tibial arteries are pa tent with biphasic borderline parvus et tardus waveform with mildly delayed systolic upstroke and pea k systolic velocity of 13 cm/s, 15 cm/s and 22 cm/s respectively. The right peroneal artery and more distal dorsalis pedis artery are both occluded. IMPRESSION: 1. Occlusion of the right common femoral and superficial femoral arteries as well as more distally at the right peroneal and dorsalis pedis arteries. 2. Monophasic waveforms with borderline delayed upstrokes at the right popliteal, posterior tibial an d anterior tibial arteries. Reviewed, dictated and finalized at location A. IMPRESSION: 1. Occlusion of the right common femoral and superficial femoral arteries as we ll as more distally at the right peroneal and dorsalis pedis arteries. 2. Monophasic waveforms with borderline delayed upstrokes at the right poplitea l, posterior tibial and anterior tibial arteries.
--- NOTE | ~2023-08-07 | US_ITS ---
EXAMINATION: US venous doppler LE RT DATE: 08/07/2023 14:40 INDICATION: Right lower limb pain and discoloration. Prior deep venous thrombosis. TECHNIQUE: Grayscale ultrasound images without and with compression and Doppler ultrasound images of the right lower extremity veins were obtained. COMPARISON: 01/21/2022 FINDINGS: Noncompressible nonocclusive deep venous thrombosis again seen in one of the paired right popliteal v eins, in one of the paired right posterior tibial veins and in the gastrocnemius vein. The visualized portions of right common femoral vein, profunda (deep) femoral vein, femoral vein, the second poplit eal vein, peroneal veins and greater saphenous vein outflow are patent. IMPRESSION: 1. Deep venous thrombosis at and below the right knee in the gastrocnemius vein and one of the paire d popliteal and posterior tibial veins. These vessels were also thrombosed on the prior study without other intervening imaging to demonstrate interval resolution and it remains unclear whether this rep resents persistent chronic thrombus or recurrent thrombus. Reviewed, dictated and finalized at location A. IMPRESSION: 1. Deep venous thrombosis at and below the right knee in the gastrocnemius vei n and one of the paired popliteal and posterior tibial veins. These vessels wer e also thrombosed on the prior study without other intervening imaging to demon strate interval resolution and it remains unclear whether this represents persi stent chronic thrombus or recurrent thrombus.
--- NOTE | 2023-08-07 13:54 | ED.GENADULT ---
HPI - General Adult General Chief complaint: Extremity Injury, Lower Stated complaint: right leg pain Time Seen by Provider: 08/07/23 13:36 History of Present Illness HPI narrative: 52yo woman with history of CLL and of DVT, presents with new onset numbness, coldness, and purple discoloration to the right foot, with pain to the right medial thigh, this morning after leaving her oncology appointment. Tried to elevate the extremity and it made the pain worse. She had to stop her Apixaban and Clopigodrel 2 months ago due to heavy vaginal bleeding. She is planning a hysterectomy so she can resume the blood thinners. Related Data Home Medications Medication Instructions Recorded Confirmed norethindrone acetate 5 mg tablet 5 mg PO BID 06/29/23 08/07/23 metoprolol tartrate 25 mg tablet 25 mg PO DAILY 07/11/23 08/07/23 Allergies Allergy/AdvReac Type Severity Reaction Status Date / Time gentian jake Allergy Rash Verified 08/07/23 13:31 Tetracyclines AdvReac Other Verified 08/07/23 13:31 Review of Systems Review of Systems: All systems reviewed & are unremarkable except as noted in HPI and below Constitutional: Constitutional: Denies chills and Denies fever(s) Eyes: Eyes: Denies change in vision ENT: Denies dysphagia Cardiovascular: Cardiovascular: Denies chest pain Respiratory: Respiratory: Denies dyspnea Gastrointestinal: Gastrointestinal: Denies abdominal pain PMFSH Past Medical History Medical History CLL (chronic lymphocytic leukemia) DVT (deep venous thrombosis) History of arterial occlusion History of endometrial biopsy Hypertension Nicotine dependence, cigarettes, uncomplicated Obesity Pyoderma gangrenosa Superficial granulomatous pyoderma Vasculitis Surgical History Surgical History History of adenoidectomy Hx of tonsillectomy Family History Family History Father CHF (congestive heart failure) Grandparent Colon cancer Sibling Pancreatic cancer Sibling Pancreatic cancer Social History Social History Smoking packs per day: 0.5 Smoking cigarettes per day: 10.0 Years smoked: 30 Smoking pack-years: 15.00 Smoking status: Current every day smoker Tobacco type: cigarettes Second hand tobacco smoke exposure: Yes Alcohol intake: former Substance use: never Substance use type: marijuana Other substance usage details: IN HER 20'S Lack of Transportation: No Lack of Food: Never True Current Housing: I Have Housing Concerned About Future Housing: No Difficulty Paying Gas/Electric Bills: No Difficulty Paying for Meds: No Currently Unemployed: No Education: Associate Degree Difficulty w/ Childcare or Family Care: No Living arrangements: with family Occupation/Education: occupation Additional occupation/education comments: Replaced By [employer] Spiritual care concerns: No Exam Const: General: healthy appearing and alert Nutritional Appearance: well nourished Eyes: Conjunctivae: conjunctivae normal Resp: Effort & Inspection: normal respiratory effort Auscultation: clear to auscultation bilaterally Cardio: Rate: regular rate Rhythm: regular rhythm Heart sounds: no murmurs GI: Inspection: non-distended Skin: Other: see extremity Neuro: General: patient oriented x3, moves all extremities and no focal motor deficits Speech: normal speech Extrem: Other: right leg and foot are cold to touch while the left is only cool. right toes are purple color. cap refill on the right foot is 7 seconds compared to 3 seconds on left foot. Popliteal, DP, and PT pulses cannot be palpated on either extremity. Course Course Emergency Course: US positive for arterial and venous occlusions. Heparin bolus and gtt sta
[2023-08-07 14:04] LABS: Basophils Absolute Auto 0.12 K/mm3 (0.00-0.10); Basophils Percent Auto 0.8 % (0.0-1.0); Eosinophils Absolute Auto 0.12 K/mm3 (0.02-0.50); Eosinophils Percent Auto 0.8 % (1.0-6.0); Hematocrit 35.7 % (35.0-49.0); Hemoglobin 10.5 g/dL (12.0-15.0); Immature Granulocyte Absolute 0.06 K/mm3 (0.00-0.00); Immature Granulocyte Percent A 0.4 % (0.0-0.0); Lymphocytes Absolute Auto 1.98 K/mm3 (1.10-4.50); Mean Corpuscular HGB Conc 29.4 g/dL (32.0-36.0); Mean Corpuscular Hemoglobin 23.7 pg (27.0-31.0); Mean Corpuscular Volume 80.6 fL (78.0-102.0); Mean Platelet Volume 9.7 fl (9.2-11.8); Monocytes Absolute Auto 0.86 K/mm3 (0.10-0.90); Monocytes Percent Auto 5.6 % (2.0-11.0); Neutrophils Absolute Auto 12.1 K/mm3 (1.7-7.2); Neutrophils Percent Auto 79.4 % (50.0-70.0); Platelet Count Result 441 K/mm3 (150-420); Red Blood Count 4.43 M/mm3 (4.20-5.40); Red Cell Distribution Width 21.4 % (11.6-14.4); White Blood Count 15.3 K/mm3 (4.8-10.8)
[2023-08-07 14:21] LABS: INR 0.9; Prothrombin Time 9.9 Seconds (9.50-12.10)
[2023-08-07 14:23] LABS: Partial Thromboplastin Time 23.6 SEC (23.90-30.70)
[2023-08-07 14:26] LABS: Alanine Aminotransferase 325 U/L (14-59); Albumin Level 2.4 g/dL (3.4-5.0); Alkaline Phosphatase 92 U/L (46-116); Anion Gap 12 mmol/L (8-16); Aspartate Amino Transferase 166 U/L (15-37); Bilirubin,Total 0.2 mg/dL (0.00-1.00); Blood Urea Nitrogen 13 mg/dL (7-18); Calcium 8.6 mg/dL (8.5-10.1); Carbon Dioxide 27 mmol/L (21-32); Chloride 103 mmol/L (98-108); Estimated CRCL calculation 68 ml/min; Estimated Glomerular Filt Rate 53; Glucose 118 mg/dL (70-99); Osmolality Calculated 295 mOsm/kg (285-295); Potassium 3.4 mmol/L (3.5-5.1); Sodium 142 mmol/L (136-145); Total Protein 6.5 g/dL (6.4-8.2)
[2023-08-07] MEDS: HEPARIN SOD/D5W 100 UNITS/ML 25,000 UNITS/250 ML BAG 14 UNITS IV CONT (15:32)
[2023-08-07] MEDS: HEPARIN SODIUM 5,000 UNITS/ML VIAL 6500 UNITS IV PUSH (15:37)
== END 2023-08-07 16:20 | disposition short-term general hospital (02) ==
PROVIDERS: Emergency Provider Emergency Medicine; PCP Family Medicine
DX: I99.8 Other disorder of circulatory system (principal); I77.1 Stricture of artery; F17.210 Nicotine dependence, cigarettes, uncomplicated; Z86.718 Personal history of other venous thrombosis and embolism; Z85.6 Personal history of leukemia; Z79.899 Other long term (current) drug therapy; Z79.01 Long term (current) use of anticoagulants
CPT/HCPCS: 36415; 80053; 85025; 85610; 85730; 93926; 93971; 96365; 99285; J1644

== ENCOUNTER 2023-09-28 17:37 | Emergency (ER) | payer MEDICARE, SELFPAY ==
--- NOTE | ~2023-09-28 | CT_ITS ---
EXAMINATION: CT abdomen pelvis w con DATE: 09/28/2023 21:08 INDICATION: ALL OVER abdominal pain TECHNIQUE: Computed tomography (CT) of the abdomen and pelvis was performed with 100 mL Omnipaque-350 intravenous contrast. Automated exposure control and iterative reconstruction technique were employe d. The dose-length product was 1399.35 mGy-cm. COMPARISON: 08/01/2023; pelvic ultrasound 07/29/2023. FINDINGS: Lower thorax: Unremarkable Liver: No intrahepatic duct dilation. Subcentimeter left lobe hypodensity, too small to characterize but likely represents a cyst or hemangioma. Biliary/Gallbladder: Gallbladder is distended. Multiple dependent gallstones. No wall thickening or p ericholecystic fluid. No inflammatory change. Increased extrahepatic duct dilation, the common bile d uct measures up to 11 mm in the pancreatic head. No obstructing stone or mass detected. Pancreas: No mass or duct dilation. Spleen: Resolving splenic infarcts. Adrenals: Right adrenal adenoma. Kidneys: Bilateral cortical thinning and scarring. Exophytic left lower pole cyst. GI tract: No small or large bowel dilation. Normal appendix. Diverticulosis without diverticulitis. Mesentery/Peritoneum: No ascites, mass, or free air. Retroperitoneum: No mass. Pelvis: Enlarged uterus, fibroids noted in the prior ultrasound. Tampons in place. Soft Tissues: Soft tissues and body wall unremarkable. Bones: No acute osseous finding. IMPRESSION: Gallbladder hydrops with cholelithiasis and dilation of the extrahepatic ducts. No obstructing stone or mass detected. No significant gallbladder inflammatory change. Correlate with biliary labs and con surfboard maker MRCP or ERCP. Tampons are noted in a patient that is reportedly postmenopausal according to the prior pelvic ultras ound. If there is postmenopausal vaginal bleeding, consider gynecology referral. Reviewed, dictated and finalized at location [facility] [employer] IMPRESSION: Gallbladder hydrops with cholelithiasis and dilation of the extrahepatic ducts. No obstructing stone or mass detected. No significant gallbladder inflammatory change. Correlate with biliary labs and consider MRCP or ERCP. Tampons are noted in a patient that is reportedly postmenopausal according to t he prior pelvic ultrasound. If there is postmenopausal vaginal bleeding, consid er gynecology referral.
--- NOTE | 2023-09-28 17:44 | ECG_ITS ---
Measurements Intervals [place] Rate: 66 P: 42 FL: 172 QRS: 45 QRSD: 95 T: 13 QT: 407 QTc: 429 Interpretive Statements SINUS RHYTHM NORMAL ELECTROCARDIOGRAM COMPARED TO ECG 07/27/2023 17:10:[address] SEGMENT ABNORMALITY IS RESOLVED Electronically Signed On 09-28-2023 18:20:12 CANDY ROLLER by Mor Bryant M.D.
[2023-09-28 17:45] VITALS: BP 143/91; PULSE 73; RESP 20; TEMP 37; O2SAT 100
[2023-09-28 18:29] LABS: Basophils Absolute Auto 0.09 K/mm3 (0.00-0.10); Basophils Percent Auto 0.5 % (0.0-1.0); Eosinophils Absolute Auto 0.03 K/mm3 (0.02-0.50); Eosinophils Percent Auto 0.2 % (1.0-6.0); Hematocrit 36.4 % (35.0-49.0); Hemoglobin 10.8 g/dL (12.0-15.0); Immature Granulocyte Absolute 0.06 K/mm3 (0.00-0.00); Immature Granulocyte Percent A 0.4 % (0.0-0.0); Lymphocytes Absolute Auto 0.71 K/mm3 (1.10-4.50); Lymphocytes Percent Auto 4.1 % (18.0-42.0); Mean Corpuscular HGB Conc 29.7 g/dL (32.0-36.0); Mean Corpuscular Hemoglobin 23.2 pg (27.0-31.0); Mean Corpuscular Volume 78.1 fL (78.0-102.0); Mean Platelet Volume 10.3 fl (9.2-11.8); Monocytes Absolute Auto 0.91 K/mm3 (0.10-0.90); Monocytes Percent Auto 5.3 % (2.0-11.0); Neutrophils Absolute Auto 15.3 K/mm3 (1.7-7.2); Neutrophils Percent Auto 89.5 % (50.0-70.0); Platelet Count Result 408 K/mm3 (150-420); Red Blood Count 4.66 M/mm3 (4.20-5.40); Red Cell Distribution Width 18.7 % (11.6-14.4); White Blood Count 17.1 K/mm3 (4.8-10.8)
[2023-09-28] MEDS: ONDANSETRON INJ 4 MG/2 ML VIAL IV PUSH (18:29)
[2023-09-28] MEDS: KETOROLAC 30 MG/ML VIAL (*BKC) IV PUSH (18:29)
[2023-09-28] MEDS: SODIUM CHLORIDE 0.9% IV 500 ML 999 ML IV CONT (18:29)
[2023-09-28 18:48] LABS: Alanine Aminotransferase 19 U/L (14-59); Albumin Level 2.9 g/dL (3.4-5.0); Alkaline Phosphatase 87 U/L (46-116); Anion Gap 13 mmol/L (8-16); Aspartate Amino Transferase 25 U/L (15-37); Bilirubin,Total 0.5 mg/dL (0.00-1.00); Blood Urea Nitrogen 12 mg/dL (7-18); Carbon Dioxide 24 mmol/L (21-32); Chloride 100 mmol/L (98-108); Estimated Glomerular Filt Rate 41; Glucose 123 mg/dL (70-99); Lipase 36 U/L (16-77); Osmolality Calculated 284 mOsm/kg (285-295); Potassium 4.1 mmol/L (3.5-5.1); Sodium 137 mmol/L (136-145); Total Protein 7.1 g/dL (6.4-8.2)
[2023-09-28 18:53] LABS: Lactic Acid Reflex 1.6 mmol/L (0.4-2.0)
[2023-09-28] MEDS: MORPHINE SULFATE (*CRX) 4 MG/ML INJ IV PUSH (19:19)
--- NOTE | 2023-09-28 19:29 | PC.NURSE ---
1900 report to franky franco. all questions ordered.
--- NOTE | 2023-09-28 19:37 | ED.ABDPAIN ---
HPI - Abdominal Pain General Chief Complaint: Abdominal Pain <Mor Blancas MD - Last Filed: 09/28/23 21:29> Stated Complaint: abdominal pain <Mor Blancas MD - Last Filed: 09/28/23 21:29> Time Seen by Provider: 09/28/23 17:39 <Mor Blancas MD - Last Filed: 09/28/23 21:29> Source: patient <Mor Blancas MD - Last Filed: 09/28/23 21:29> Mode of arrival: ambulatory <Mor Blancas MD - Last Filed: 09/28/23 21:29> Limitations: no limitations <Mor Blancas MD - Last Filed: 09/28/23 21:29> History of Present Illness HPI narrative: this is 53-year-old female with a history of gallstones and is scheduled to have a cholecystectomy in early October presents with severe abdominal pain she rates about a 10/10 and has some nausea with some with no chest pain no shortness of breath no fever chills no diarrhea constipation. <Mor Blancas MD - Last Filed: 09/28/23 21:29> MD elicited complaint: abdominal pain <Mor Blancas MD - Last Filed: 09/28/23 21:29> Pertinent past history: other <Mor Blancas MD - Last Filed: 09/28/23 21:29> Onset (ago): week(s) <Mor Blancas MD - Last Filed: 09/28/23 21:29> Pain Consistency: constant <Mor Blancas MD - Last Filed: 09/28/23 21:29> Location: RUQ <Mor Blancas MD - Last Filed: 09/28/23 21:29> Severity: severe <Mor Blancas MD - Last Filed: 09/28/23 21:29> Pain scale (0-10): 10 <Mor Blancas MD - Last Filed: 09/28/23 21:29> Quality: aching <Mor Blancas MD - Last Filed: 09/28/23 21:29> Related Data Home Medications: Home Medications Medication Instructions Recorded Confirmed norethindrone acetate 5 mg tablet 5 mg PO BID 06/29/23 09/28/23 <Mor Blancas MD - Last Filed: 09/28/23 21:29> Allergies/Adverse Reactions: Allergies Allergy/AdvReac Type Severity Reaction Status Date / Time gentian jake Allergy Rash Verified 09/28/23 20:41 Tetracyclines AdvReac Other Verified 09/28/23 20:41 <Mor Blancas MD - Last Filed: 09/28/23 21:29> Review of Systems Review of Systems: All systems reviewed & are unremarkable except as noted in HPI and below <Mor Blancas MD - Last Filed: 09/28/23 21:29> PMFSH Past Medical History Medical History: Medical History CLL (chronic lymphocytic leukemia) DVT (deep venous thrombosis) History of arterial occlusion History of blood transfusion History of endometrial biopsy Hx of blood clots Hypertension Nicotine dependence, cigarettes, uncomplicated Obesity Pyoderma gangrenosa Superficial granulomatous pyoderma Vasculitis <Mor Blancas MD - Last Filed: 09/28/23 21:29> Surgical History Surgical History: Surgical History History of adenoidectomy Hx of tonsillectomy <Mor Blancas MD - Last Filed: 09/28/23 21:29> Family History Family History: Family History Father CHF (congestive heart failure) Grandparent Colon cancer Sibling Pancreatic cancer Sibling Pancreatic cancer Other Cerebrovascular accident Heart disease Hypertension Kidney disease <Mor Blancas MD - Last Filed: 09/28/23 21:29> Social History Social History: Social History Smoking packs per day: 0.5 Smoking cigarettes per day: 10.0 Years smoked: 30 Smoking pack-years: 15.00 Smoking status: Current every day smoker Tobacco type: cigarettes Second hand tobacco smoke exposure: Yes Alcohol intake: former Substance use: never Substance use type: marijuana Other substance usage details: IN HER 20'S Lack of Transportation: No Lack of Food: Never True Current Housing: I Have Housing Conc
[2023-09-28 19:57] LABS: Appearance Urine Clear (Clear); Bilirubin Urine 2+ (Negative); Blood Urine 1+ (Negative); Color Urine Yellow (Yellow); Glucose Urine UA Negative (Negative); Ketones Urine 1+ (Negative); Leukocyte Esterase Ur Negative LEU/UL (Negative); Nitrate Urine Negative (Negative); Protein Urine 3+ (Negative); Specific Grav Ur >= 1.030 (1.010-1.020); Urobilinogen Urine 0.2 mg/dL (0.2-1.0)
[2023-09-28] MEDS: PIPERACILLN/TAZ 3.375GM/NS50ML 3.375 GM/50 ML BAG IVPB (19:58)
[2023-09-28 20:03] LABS: Add Urine Microscopic? YES; Bacteria Urine 2+ /hpf; Mucus Urine Rare /lpf; Squamous Epithelial Cell Urine Rare /hpf (Few); WBC Urine 0-3 /hpf (0-3)
[2023-09-28 20:43] LABS: Pregnancy On Board Control Positive; Urine Pregnancy Test Negative
[2023-09-28 21:44] VITALS: BP 182/84; PULSE 72; RESP 16; TEMP 36.8; O2SAT 97
[2023-09-28] MEDS: HYDROmorphone HCL INJ (*CRX) 2 MG/ML VIAL 0.5 MG IV PUSH (22:28)
[2023-09-28 23:02] VITALS: BP 165/90; PULSE 70; RESP 17; O2SAT 96
[2023-09-28 23:15] VITALS: O2SAT 96
[2023-09-28 23:30] VITALS: O2SAT 96
[2023-09-28 23:45] VITALS: O2SAT 95
[2023-09-29] VITALS (30 sets, daily range): BP systolic 149–181; BP diastolic 92–112; PULSE 103–105; RESP 16; O2SAT 93–100
[2023-09-29] MEDS: HYDROmorphone HCL INJ (*CRX) 2 MG/ML VIAL 0.5 MG IV PUSH ×3 (02:18→09:42)
[2023-09-29] MEDS: ONDANSETRON INJ 4 MG/2 ML VIAL IV PUSH (03:15)
--- NOTE | 2023-09-29 08:28 | PC.NURSE ---
Per Arturo, potential room openings around 12:00 today. Pt updated about transfer status. Pt ambulated to restroom independently.
--- NOTE | 2023-09-29 09:49 | PC.NURSE ---
Pt requesting pain medication. ERP aware and states ok to give next dose a little early. Pt also given ice chips with ERP permission.
[2023-09-29] MEDS: fentaNYL CITRATE INJ (*CRX) 100 MCG/2 ML VIAL 50 MCG IV PUSH (11:49)
== END 2023-09-29 12:07 | disposition short-term general hospital (02) ==
PROVIDERS: Emergency Medicine; Emergency Provider Emergency Medicine; PCP Family Medicine
DX: K81.9 Cholecystitis, unspecified (principal); I10 Essential (primary) hypertension; F17.210 Nicotine dependence, cigarettes, uncomplicated; Z85.6 Personal history of leukemia
CPT/HCPCS: 36415; 74177; 80053; 81001; 81025; 83605; 83690; 85025; 93005; 96361; 96365; 96375; 96376; 99285; J1170; J1885; J2270; J2405; J2543; J3010; J7040; Q9967

== ENCOUNTER 2023-09-29 13:01 | Inpatient (IN) | payer MEDICARE, SELFPAY ==
--- NOTE | ~2023-09-29 | NM_ITS ---
EXAMINATION: NM hepatobiliary wo pharm DATE: 09/30/2023 15:06 EXTRACT WRINGER INDICATION: Cholecystitis. COMPARISON: None. TECHNIQUE: 5.3 mCi Tc-99m mebrofenin (Choletec) was administered intravenously. Scintigraphic images of the abdomen were obtained for one hour. FINDINGS: There is normal clearance of radiotracer from the blood pool. There is homogeneous tracer u ptake by the liver. Activity progresses to the gallbladder and bowel. IMPRESSION: 1. Unremarkable hepatobiliary scan. Ejection fraction not performed. Reviewed, dictated and finalized at location A. ACT WRINGER
--- NOTE | 2023-09-29 12:55 | ADMGEN ---
This patient, Nicole Hamilton, was admitted to [facility] Surg Room 323-01. Patient/family oriented to hospital policies and general routines including ID bracelet, bed and alarms, visiting hours, pain management, procedures, bathroom and other care routines, personal items, smoking policy, room service/diet, and visiting hours. Information on how to activate the Rapid Response Team has been discussed. Patient/Family are encouraged to report perceived risks to care and to ask questions if they do not understand what they are told or what they should do.
[2023-09-29] MEDS: LACTATED RINGERS 1,000 ML 100 ML IV CONT ×2 (13:59→23:55)
[2023-09-29] MEDS: MORPHINE SULFATE (*CRX) 2 MG/ML INJ IV PUSH (14:07)
--- NOTE | 2023-09-29 14:22 | PM.IMHP ---
H&P: HPI History of Present Illness Date/Time: 09/29/23 14:22 Chief Complaint: Abdominal Pain, N/V Narrative: 53 y/o F presents here with N/V, reduced p.o. intake/poor appetite, and weight loss with past medical history of a adenomyosis with excessive bleeding requiring transfusions, CLL, DVT (RLE), HTN, and smoker. Patient presents here from [place] ED with persistent/worsening nausea vomiting and upper abdominal pain. States that she has had these symptoms intermittently for months and was originally evaluated for a cholecystectomy in August. However surgery was postponed due to patient currently undergoing treatment for a DVT of the right lower extremity and severe PAD. Per patient report she was treated and released by [facility] (MD Pierre) this week. States there was talk of coordinating with [facility] surgical team to have cholecystectomy and hysterectomy on the same day. Currently has adenomyosis with excessive bleeding requiring transfusions with plan to treat surgically. No specific planned date at this time. However, patient reports the abdominal pain and nausea/vomiting became too intense, thus sought care because she could not tolerate the symptoms until these surgeries were scheduled. Reports unintentional weight loss - 56 lbs since July due to reduced appetite and poor p.o. intake. States she is currently able to tolerate water primarily. Also experiencing increased constipation with last bowel movement 4 days ago. ED workup revealed elevated white count at 17.1, stable anemia with hgb of 10.8, bump in creatinine at 1.36 (previously 1.1), and imaging showed gallbladder hydrops with cholelithiasis and dilation of the extrahepatic ducts without obstructing stone or mass detected. Currently experiencing right upper quadrant pain described as sharp/agonizing and 10/10 with some radiation to her back and epigastric region. No current active vomiting. Continuing to endorse fatigue. No associated chills, body aches, changes in stool color, or diarrhea. Review of Systems Review of Systems: All systems reviewed & are unremarkable except as noted in HPI and below PMFSH Past Medical History Medical History Adenomyosis of the uterus CLL (chronic lymphocytic leukemia) DVT (deep venous thrombosis) RLE - resolved as on 09/29/23 JOANN (generalized anxiety disorder) GERD (gastroesophageal reflux disease) History of arterial occlusion History of blood transfusion Hypertension Nicotine dependence, cigarettes, uncomplicated Obesity Pyoderma gangrenosa Raynauds syndrome (06/05/18) Superficial granulomatous pyoderma Vasculitis Surgical History Surgical History History of adenoidectomy Hx of tonsillectomy Family History Family History Father CHF (congestive heart failure) Grandparent Colon cancer Sibling Pancreatic cancer Sibling Pancreatic cancer Other Cerebrovascular accident Heart disease Hypertension Kidney disease Social History Social History Smoking packs per day: 0.5 Smoking cigarettes per day: 10.0 Years smoked: 30 Smoking pack-years: 15.00 Smoking status: Current every day smoker Tobacco type: cigarettes Second hand tobacco smoke exposure: Yes Alcohol intake: never Substance use: never Substance use type: does not use Other substance usage details: IN HER 20'S Do You Feel Safe in your Home?: No Lack of Transportation: No Lack of Food: Never True Current Housing: I Have Housing Concerned About Future Housing: No Difficulty Paying Gas/Electric Bills: No Difficulty Paying for Meds: No Currently Unemployed: No Education: Don't Know Difficulty w/ Childcare or Family Care: No Living arrangements: with family Occupation/Education: o
[2023-09-29 15:00] VITALS: BP 183/103; PULSE 114; RESP 19; TEMP 37.1; O2SAT 96
[2023-09-29 15:30] VITALS: BMI 34.7
[2023-09-29] MEDS: PIPERACILLN/TAZ 3.375GM/NS50ML 3.375 GM/50 ML BAG IVPB ×2 (15:35→21:21)
[2023-09-29] MEDS: HYDROmorphone HCL INJ (*CRX) 1 MG/ML SYR IV PUSH ×2 (15:36→20:47)
--- NOTE | 2023-09-29 16:12 | ECG_ITS ---
Measurements Intervals [place] Rate: 93 P: 23 NV: 152 QRS: -16 QRSD: 99 T: 46 QT: 356 QTc: 443 Interpretive Statements SINUS RHYTHM NONSPECIFIC ST-T CHANGES IN THE HIGH LATERAL LEADS COMPARED TO ECG 09/28/2023 17:51:[address] T-WAVE CHANGES ARE NEW Electronically Signed On 09-30-2023 8:54:18 MECHANICAL TECHNICIAN by Rosaura Hernandez M.D.
[2023-09-29 16:29] LABS: Basophils Absolute Auto 0.1 K/mm3 (0.0-0.1); Basophils Percent Auto 0.2 % (0.2-1.2); Hemoglobin 10.6 g/dL (12.0-15.0); Immature Granulocyte Absolute 1.47 K/mm3 (0.00-0.031); Immature Granulocyte Percent A 3.4 % (0-0.5); Lymphocytes Absolute Auto 0.93 K/mm3 (0.9-3.2); Lymphocytes Percent Auto 2.2 % (18.3-44.2); Mean Corpuscular HGB Conc 29.4 g/dl (32-36); Mean Corpuscular Hemoglobin 23.6 pg (26-34); Mean Corpuscular Volume 80.2 fl (80-100); Mean Platelet Volume 10.9 fl (7.4-10.4); Monocytes Absolute Auto 2.3 K/mm3 (0.1-0.6); Monocytes Percent Auto 5.5 % (2.6-8.5); Neutrophils Absolute Auto 37.9 K/mm3 (1.3-6.7); Neutrophils Percent Auto 88.7 % (45.5-73.1); Nucleated Red Blood Cells Absolute Auto 0.1 K/mm3 (0.0-0.012); Nucleated Red Blood Cells Perc 0.1 % (0.0-0.2); Platelet Count Result 430 k/mm3 (150-375); Red Blood Count 4.49 M/mm3 (4.2-5.4); Red Cell Distribution Width 19.3 % (11.5-14.5); White Blood Count 42.7 K/mm3 (4.5-10.0)
[2023-09-29 16:39] LABS: Alanine Aminotransferase 48 U/L (6-35); Albumin Level 3.6 g/dL (3.5-5.1); Alkaline Phosphatase 105 U/L (38-126); Anion Gap 10 mmol/L (8-16); Aspartate Amino Transferase 95 U/L (14-36); Bilirubin,Total 0.7 mg/dL (0.2-1.3); Blood Urea Nitrogen 11 mg/dL (7-17); Calcium 8.9 mg/dL (8.4-10.2); Carbon Dioxide 20 mmol/L (22-30); Chloride 106 mmol/L (98-107); Estimated CRCL calculation 63 ml/min; Estimated Glomerular Filt Rate 52; Glucose 127 mg/dL (65-110); Lipase 57 U/L (23-300); Potassium 3.5 mmol/L (3.4-5.0); Sodium 136 mmol/L (137-145)
[2023-09-29 16:51] LABS: Troponin I < 0.012 ng/mL (0.000-0.034)
[2023-09-29] MEDS: lisinopriL 20 MG TABLET 40 MG PO (17:23)
[2023-09-29 17:24] VITALS: PULSE 115
[2023-09-29] MEDS: METOPROLOL SUCCINATE EXT REL 50 MG TABCR PO (17:24)
--- NOTE | 2023-09-29 17:48 | WPDCN ---
Assessment and Plan Assessment and plan (1) Symptomatic cholelithiasis: Code(s): K80.20 - Calculus of gallbladder without cholecystitis without obstruction Status: Acute Assessment and Plan: Patient is having at least symptomatic cholelithiasis if not possible acute cholecystitis and a CT scan is lagging behind clinical picture. We will give her some Dilaudid instead of morphine for pain. She has been started on Zosyn for IV antibiotics. To keep her NPO tonight. We will get a HIDA scan tomorrow to see if she has a patent cystic duct. White blood cell count did elevate the 42,000 but she has had chronic elevation of her white blood cell count due to her CLL. Willl repeat white blood count the morning. Depending on her clinical course in laboratory findings it may be indicated to proceed with an urgent cholecystectomy during this admission. (2) Antiplatelet or antithrombotic long-term use: Code(s): Z79.02 - detention (current) use of antithrombotics/antiplatelets Status: Acute Assessment and Plan: she is normally on Plavix and Eliquis for her peripheral vascular disease. However she has not taken over the past 2 days due to her pain and nausea. By her history she is cleared to proceed with cholecystectomy and hysterectomy and she can hold her antiplatelet and anticoagulation medications for the procedure (3) Adenomyosis of the uterus: Code(s): N80.03 - Adenomyosis of the uterus Status: Acute Assessment and Plan: She has been having abnormal uterine bleeding. If she to proceed with a laparoscopic cholecystectomy then she may end up having to have her hysterectomy performed during a 2nd surgery with her ticket chopper assembler. HPI Data of Consult Date/Time: 09/29/23 17:48 Requesting Physician: Michelle Luna MD Primary Care Provider: Ari Elmore DO Consult Narrative Reason for consult: Severe right upper quadrant abdominal pain associated with nausea. Narrative: Nicole Hamilton is a 53 year old female Who was transferred from [facility] this morning after going to the emergency room there last evening complaining of severe right upper quadrant abdominal pain which radiated into her upper back. She has been having gallbladder problems since at least July and she was seen by Dr. Austin in our outpatient surgery office. At that time her symptoms were consistent with symptomatic cholelithiasis and biliary colic however the patient had acute vascular problems and she was sent to [facility] and started on heparin drip. She was managed by the [facility] vascular surgery and eventually discharged from the hospital. Most recently she has received clearance to proceed with gallbladder surgery and a hysterectomy if needed. She was told she can stop her antiplatelet therapy long enough to have her surgeries performed. There were no interventions to revascularize anything by the vascular surgeons. The patient states that the written surgical clearance is were obtained by Dr. Pratik Wilson who is her train control technician. The plan was to coordinate gallbladder surgery as well as a hysterectomy. We had not been contacted by Dr. Wang office yet to try to coordinate a elective outpatient surgery. Her workup a [facility] include blood work showed normal liver enzymes and normal lipase. CT scan showed a dilated gallbladder with no gallbladder wall thickening or pericholecystic fluid. Gallstones were noted in the gallbladder. There was obvious common bile duct stone although the common bile duct was mildly dilated. 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 When I interviewed her she stated she has lost about 50lb since July which is been over the course about 2 months. She states that she ca
[2023-09-29] MEDS: ONDANSETRON INJ 4 MG/2 ML VIAL IV PUSH (20:47)
[2023-09-29] MEDS: SENNA/DOCUSATE SODIUM TABLET 1 TAB PO (20:47)
[2023-09-29 21:52] VITALS: BP 157/85; PULSE 92; RESP 19; TEMP 36.2; O2SAT 96
[2023-09-30] MEDS: HYDROmorphone HCL INJ (*CRX) 1 MG/ML SYR IV PUSH ×6 (01:38→23:39)
[2023-09-30] MEDS: PIPERACILLN/TAZ 3.375GM/NS50ML 3.375 GM/50 ML BAG IVPB ×4 (03:02→21:00)
[2023-09-30 06:00] VITALS: BP 162/71; PULSE 71; RESP 19; TEMP 36.2; O2SAT 94
[2023-09-30 06:38] LABS: Basophils Absolute Auto 0.1 K/mm3 (0.0-0.1); Basophils Percent Auto 0.3 % (0.2-1.2); Eosinophils Absolute Auto 0.1 K/mm3 (0-0.3); Eosinophils Percent Auto 0.2 % (0-4.4); Hematocrit 31.7 % (37.0-47.0); Hemoglobin 9.8 g/dL (12.0-15.0); Immature Granulocyte Percent A 1.7 % (0-0.5); Lymphocytes Absolute Auto 1.05 K/mm3 (0.9-3.2); Lymphocytes Percent Auto 2.9 % (18.3-44.2); Mean Corpuscular HGB Conc 30.9 g/dl (32-36); Mean Corpuscular Hemoglobin 23.5 pg (26-34); Mean Platelet Volume 10.4 fl (7.4-10.4); Monocytes Absolute Auto 1.5 K/mm3 (0.1-0.6); Monocytes Percent Auto 4.2 % (2.6-8.5); Neutrophils Absolute Auto 32.5 K/mm3 (1.3-6.7); Neutrophils Percent Auto 90.7 % (45.5-73.1); Platelet Count Result 369 k/mm3 (150-375); Red Blood Count 4.17 M/mm3 (4.2-5.4); Red Cell Distribution Width 18.4 % (11.5-14.5); White Blood Count 35.8 K/mm3 (4.5-10.0)
[2023-09-30 06:52] LABS: INR 1.2; Prothrombin Time 15.5 Seconds (11.1-14.7)
[2023-09-30 07:39] LABS: Alanine Aminotransferase 88 U/L (6-35); Albumin Level 3.1 g/dL (3.5-5.1); Alkaline Phosphatase 120 U/L (38-126); Anion Gap 9 mmol/L (8-16); Aspartate Amino Transferase 161 U/L (14-36); Bilirubin,Total 0.6 mg/dL (0.2-1.3); Blood Urea Nitrogen 12 mg/dL (7-17); Calcium 8.5 mg/dL (8.4-10.2); Carbon Dioxide 24 mmol/L (22-30); Chloride 104 mmol/L (98-107); Estimated CRCL calculation 69 ml/min; Estimated Glomerular Filt Rate 58; Glucose 115 mg/dL (65-110); Lipase 42 U/L (23-300); Potassium 3.2 mmol/L (3.4-5.0); Sodium 137 mmol/L (137-145)
--- NOTE | 2023-09-30 09:13 | WPDCN ---
HPI Data of Consult Date/Time: 09/30/23 09:13 Requesting Physician: Michelle Luna MD Primary Care Provider: Ari Elmore, Consult Narrative Narrative: I was asked to see the patient for consultation regarding possible hysterectomy should the need for cholecystectomy arise during this hospitalization. At the time of rounding, the patient had just left for a HIDA scan and was not on the floor. The chart was reviewed and unless the hysterectomy would become emergent, I would not plan to do the hysterectomy during this hospitalization. I would prefer for the patient to refer back to her frame maker after stabilizing due to her very complex medical history. Will attempt to see the patient tomorrow during rounds unless called to see her emergently for vaginal bleeding. [facility] Past Medical History Medical History Adenomyosis of the uterus CLL (chronic lymphocytic leukemia) DVT (deep venous thrombosis) RLE - resolved as on 09/29/23 JOANN (generalized anxiety disorder) GERD (gastroesophageal reflux disease) History of arterial occlusion History of blood transfusion Hypertension Nicotine dependence, cigarettes, uncomplicated Obesity Pyoderma gangrenosa Raynauds syndrome (06/05/18) Superficial granulomatous pyoderma Vasculitis Surgical History Surgical History History of adenoidectomy Hx of tonsillectomy Family History Family History Father CHF (congestive heart failure) Grandparent Colon cancer Sibling Pancreatic cancer Sibling Pancreatic cancer Other Cerebrovascular accident Heart disease Hypertension Kidney disease Social History Social History Smoking packs per day: 0.5 Smoking cigarettes per day: 10.0 Years smoked: 30 Smoking pack-years: 15.00 Smoking status: Current every day smoker Tobacco type: cigarettes Second hand tobacco smoke exposure: Yes Alcohol intake: never Substance use: never Substance use type: does not use Other substance usage details: IN HER 20'S Do You Feel Safe in your Home?: No Lack of Transportation: No Lack of Food: Never True Current Housing: I Have Housing Concerned About Future Housing: No Difficulty Paying Gas/Electric Bills: No Difficulty Paying for Meds: No Currently Unemployed: No Education: Don't Know Difficulty w/ Childcare or Family Care: No Living arrangements: with family Occupation/Education: occupation Additional occupation/education comments: [employer] Spiritual care concerns: No Meds Home Medications and Allergies Home Medications Medication Instructions Recorded Confirmed Type lisinopril 40 mg tablet 40 mg PO DAILY #90 tabs 03/24/23 09/29/23 Rx norethindrone acetate 5 mg tablet 5 mg PO BID 06/29/23 09/29/23 History atorvastatin 20 mg tablet 20 mg PO DAILY #90 tabs 07/11/23 09/29/23 Rx ondansetron 4 mg disintegrating 4 mg PO Q8H PRN nausea and 08/01/23 09/29/23 Rx tablet vomiting 5 days #20 tabs clopidogrel 75 mg tablet See Rx Instructions .Route 08/23/23 09/29/23 Rx .COMPLEX #90 tabs allopurinol 100 mg tablet 100 mg PO BID #180 tabs 09/13/23 09/29/23 Rx metoprolol succinate 50 mg 50 mg PO DAILY #90 tabs 09/13/23 09/29/23 Rx tablet,extended release 24 hr apixaban 5 mg tablet (Eliquis) 5 mg PO BID 09/29/23 09/29/23 History Allergies Allergy/AdvReac Type Severity Reaction Status Date / Time gentian jake Allergy Rash Verified 09/29/23 12:56 Tetracyclines AdvReac Other Verified 09/29/23 12:56 Vital Signs Vital Signs - 24 hr 09/29/23 17:24 09/29/23 15:00 09/29/23 19:50 Temperature 98.7 F Pulse Rate 115 H 114 H Respiratory Rate 19 Blood Pressure 183/103 H Pulse Oximetry 96 Oxygen Delivery Room Air 09/29/23 21:52 09/30/23 06:00 Temp
[2023-09-30] MEDS: PANTOPRAZOLE SODIUM IV 40 MG VIAL IV PUSH (10:37)
[2023-09-30 10:52] VITALS: PULSE 66
[2023-09-30] MEDS: lisinopriL 20 MG TABLET 40 MG PO (10:52)
[2023-09-30] MEDS: METOPROLOL SUCCINATE EXT REL 50 MG TABCR PO (10:52)
[2023-09-30 11:34] VITALS: BMI 34.7
--- NOTE | 2023-09-30 11:52 | WPDPN ---
Progress Note: A&P Assessment and Plan (1) Symptomatic cholelithiasis: Code(s): K80.20 - Calculus of gallbladder without cholecystitis without obstruction Status: Acute Assessment and Plan: Patient still having right abdominal pain. Her HIDA scan has been done but official reading is not available yet. No fever. She has CLL and her white blood cell count is elevated but has decreasing 44,000 down to 37,000 today. Continue on IV antibiotics. She can have some clear liquids today but will likely proceed with a laparoscopic cholecystectomy possible open cholecystectomy tomorrow. We will wait for the HIDA scan results and make a decision later today. Subjective Date/time seen: 09/30/23 11:52 Interval history: Patient just got back from HIDA scan. Quite a bit of pain from ambulating Radiology to get the HIDA scan performed. She had the HIDA scan done without of provocative injection of CCK or drinking Ensure. Images are available but the formal radiology reading is not available yet. She is not having any nausea right now I just got some IV pain medications. Clear liquids have been ordered for her but she has not tried yet. White blood cell count is down to 34,000 today. She does have CLL. Remains afebrile. She has gotten better pain control with Dilaudid instead of morphine and was able to sleep this morning. Exam GI: Other: Abdomen is mildly obese and soft. Nondistended. Patient has moderate to severe tenderness with palpation the right upper quadrant. Gallbladder is not palpable. No diffuse peritoneal signs. Objective Data Vital Signs Vital Signs: Vital Signs - 24 hr 09/29/23 17:24 09/29/23 15:00 09/29/23 19:50 Temperature 37.1 C Pulse Rate 115 H 114 H Respiratory Rate 19 Blood Pressure 183/103 H Pulse Oximetry 96 Oxygen Delivery Room Air 09/29/23 21:52 09/30/23 06:00 09/30/23 10:52 Temperature 36.2 C L 36.2 C L Pulse Rate 92 71 66 Respiratory Rate 19 19 Blood Pressure 157/85 H 162/71 H Pulse Oximetry 96 94 Oxygen Delivery Intake/Output Intake/Output: Intake & Output 09/27/23 09/28/23 09/29/23 09/30/23 23:59 23:59 23:59 23:59 Intake Total 1600 450 Output Total 0 Balance 1600 450 Meds/Results Medications: Active Medications Generic Name Dose Route Start Last Admin Trade Name Cristin PRN Reason Stop Dose Admin Acetaminophen 650 mg 09/29/23 13:02 Acetaminophen 325 Mg Tablet PO Q4H PRN Mild Pain (1-3) or Fever Hydrocodone Bitart/Acetaminophen 1 tab 09/29/23 13:02 Hydrocodone/Acetaminophen (*Crx) 5-325 Mg Tablet PO Q4H PRN Moderate Pain (4-6) Hydromorphone HCl 1 mg 09/29/23 15:23 09/30/23 10:35 Hydromorphone Hcl Inj (*Crx) 1 Mg/Ml Syr IV PUSH 1 mg Q3H PRN Administration Pain Rated 7-10 Lactated Ringer's 1,000 mls @ 100 mls/hr 09/29/23 13:05 09/29/23 23:55 Lr - Lactated Ringers Iv IV CONT 100 mls/hr .Q10H ANA Administration Piperacillin/Tazobactam/Dextrose 3.375 gm in 50 mls @ 100 mls/hr 09/29/23 16:00 09/30/23 10:52 Zosyn 3.375 Gm/Ns 50 Ml IVPB 100 mls/hr Q6H ANA Administration Lisinopril 40 mg 09/29/23 16:16 09/30/23 10:52 Lisinopril 20 Mg Tablet PO 40 mg DAILY ANA Administration Metoprolol Succinate 50 mg 09/29/23 16:20 09/30/23 10:52 Metoprolol Succinate Ext Rel 50 Mg Tabcr PO 50 mg DAILY ANA Administration Miscellaneous Information 0 each 09/29/23 00:01 Norethindrone Is Non-Formulary. Use Pt Own Supply? XX 10/29/23 00:00 CLARIFY ANA Morphine Sulfate 2 mg 09/29/23 13:02 09/29/23 14:07 Morphine Sulfate (*Crx) 2 Mg/Ml Inj IV PUSH 2 mg Q4H PRN Administration Pain Rated 7-10 Non-Formulary Medication 5 mg 09/29/23 17:00 Norethindrone Acetate PO 10/29/23 16:59 BID ANA Ondansetron HCl 4 mg 09/29/23 15:24 09/29/23 20:47 Ondansetron Inj 4 Mg/2 Ml Vial IV PUSH 4 mg Q4HR PRN Administration Nause
[2023-09-30 14:00] VITALS: BP 171/89; PULSE 66; RESP 18; TEMP 36.4; O2SAT 97
--- NOTE | 2023-09-30 14:58 | PM.IMPN ---
Progress Note: A&P Assessment and Plan (1) Acute cholecystitis: Code(s): K81.0 - Acute cholecystitis Status: Inactive Assessment and Plan: CT Abd/Pelvis:Gallbladder hydrops with cholelithiasis and dilation of the extrahepatic ducts. No obstructing stone or mass detected. No significant gallbladder inflammatory change. Correlate with biliary labs and consider MRCP or ERCP. Tampons are noted in a patient that is reportedly postmenopausal according to the prior pelvic ultrasound. General surgery following - HIDA this am, pending report. Plan for surgical intervention tomorrow pending HIDA results. Continue antiemetics, IV fluids, and pain management. PPI. Continue to monitor renal function, LFTs, lipase daily. Requesting records from [facility] for confirmation of clearance. Hold Eliquis and Plavix. (2) Adenomyosis of the uterus: Code(s): N80.03 - Adenomyosis of the uterus Status: Acute Assessment and Plan: Land Manager consulted - plan for surgical intervention with her primary sanitary napkin machine tender unless bleeding becomes uncontrolled while here. Continue norethindrone acetate - 5?mg?PO?BID. (3) Hypertension: Qualifiers: Hypertension type: unspecified Qualified Code(s): I10 - Essential (primary) hypertension Code(s): I10 - Essential (primary) hypertension Status: Acute Assessment and Plan: Reportedly has not taken blood pressure medications for the past 2 days. BP medications restarted EKG ordered - new ST wave changes troponin negative x1 Plan Home Meds/Chronic Conditions - Gout: hold allopurinol - DVT: holding Plavix and Eliquis, obtaining records from [facility] Diet: NPO GI Prophylaxis: Pantoprazole DVT Prophylaxis: Holding Plavix and Eliquis, unclear if DVT has resolved so will hold SCDs Lines: pIV Code Status: Full Code Subjective Date/time seen: 09/30/23 14:58 Interval history: Patient appears quite uncomfortable this morning. She is feeling pressure and pain in her mid epigastric and right upper quadrant. She had a HIDA scan shortly after my exam, report still unavailable. General surgery following. Will plan for surgery tomorrow, pending HIDA results. Pain control and prn antiemetics available. Will keep NPO. Tribal Delegate consulted but will not intervene during this hospitalization unless bleeding becomes uncontrolled. Will continue zosyn empiric for now. Continue to closely monitor labs and clinical presentation. Review of Systems Review of Systems: All systems reviewed & are unremarkable except as noted in HPI and below Exam Const: General: uncomfortable HENMT: Face/Nose/Sinus: Normal nares present Mouth: Yes dry mucous membranes Eyes: General: appearance normal, both eyes and all related structures Pupils: Equal, round and reactive pupils present EOM: EOMs intact bilaterally Resp: Effort & Inspection: normal respiratory effort Auscultation: clear to auscultation bilaterally Cardio: Rhythm: regular rhythm Other: S1-S2 present without murmur, rub, ectopy GI: Other: Hypoactive bowel sounds throughout, tenderness to right upper quadrant primarily with extension to epigastric region with guarding. Nondistended, non-firm. Skin: General skin exam: normal color and no rashes or lesions noted Wounds: no wounds Neuro: Cranial nerves: Yes Equal, round and reactive pupils present Speech: normal speech Sensory Exam: normal sensation Other: A/Ox4 Extrem: General: normal to inspection Psych: Mental Status: mental status grossly normal Other: Good insight and judgment. Objective Data Vital Signs Vital Signs: Vital Signs - 24 hr 09/29/23 17:24 09/29/23 15:00 09/29/23 19:50 Temperature 98.7 F Pulse Rate 115 H 114 H Respiratory Rate 19 Blood Pressure 183/103 H Pulse Oximetry 96 Oxygen Delivery Room Air 09/29/23 21:52 09/30/23 06:00 09/30/23 10:52 Temperature 97.2 F L 97.1 F L Pulse
[2023-09-30] MEDS: POTASSIUM CHLORIDE 20 MEQ PACKET (FOR LIQUID) 40 MEQ PO (17:15)
[2023-09-30 20:10] VITALS: PULSE 66; RESP 18; O2SAT 97
[2023-09-30] MEDS: SENNA/DOCUSATE SODIUM TABLET 1 TAB PO (20:24)
[2023-09-30] MEDS: LACTATED RINGERS 1,000 ML 100 ML IV CONT (20:24)
[2023-09-30 21:32] VITALS: BP 152/78; PULSE 71; RESP 21; TEMP 36.1; O2SAT 95
[2023-10-01] VITALS (12 sets, daily range): BP systolic 118–152; BP diastolic 69–83; PULSE 61–72; RESP 12–21; TEMP 29.4–37.9; O2SAT 92–100
[2023-10-01] MEDS: PIPERACILLN/TAZ 3.375GM/NS50ML 3.375 GM/50 ML BAG IVPB ×3 (03:31→21:00)
[2023-10-01] MEDS: HYDROmorphone HCL INJ (*CRX) 1 MG/ML SYR IV PUSH ×4 (03:32→20:23)
[2023-10-01 06:19] LABS: Basophils Absolute Auto 0.1 K/mm3 (0.0-0.1); Basophils Percent Auto 0.2 % (0.2-1.2); Eosinophils Percent Auto 0.1 % (0-4.4); Hematocrit 28.8 % (37.0-47.0); Hemoglobin 8.8 g/dL (12.0-15.0); Immature Granulocyte Absolute 0.33 K/mm3 (0.00-0.031); Immature Granulocyte Percent A 1.2 % (0-0.5); Lymphocytes Percent Auto 4.1 % (18.3-44.2); Mean Corpuscular HGB Conc 30.6 g/dl (32-36); Mean Corpuscular Hemoglobin 23.5 pg (26-34); Mean Platelet Volume 10.8 fl (7.4-10.4); Monocytes Absolute Auto 1.1 K/mm3 (0.1-0.6); Monocytes Percent Auto 3.9 % (2.6-8.5); Neutrophils Absolute Auto 24.1 K/mm3 (1.3-6.7); Neutrophils Percent Auto 90.5 % (45.5-73.1); Platelet Count Result 359 k/mm3 (150-375); Red Blood Count 3.74 M/mm3 (4.2-5.4); Red Cell Distribution Width 18.4 % (11.5-14.5); White Blood Count 26.7 K/mm3 (4.5-10.0)
[2023-10-01] MEDS: LACTATED RINGERS 1,000 ML 100 ML IV CONT (06:21)
[2023-10-01 06:53] LABS: Alanine Aminotransferase 68 U/L (6-35); Albumin Level 2.8 g/dL (3.5-5.1); Alkaline Phosphatase 120 U/L (38-126); Anion Gap 4 mmol/L (8-16); Aspartate Amino Transferase 116 U/L (14-36); Bilirubin,Total 0.6 mg/dL (0.2-1.3); Blood Urea Nitrogen 12 mg/dL (7-17); Calcium 8.2 mg/dL (8.4-10.2); Carbon Dioxide 27 mmol/L (22-30); Chloride 103 mmol/L (98-107); Estimated CRCL calculation 69 ml/min; Estimated Glomerular Filt Rate 58; Glucose 102 mg/dL (65-110); Lipase 28 U/L (23-300); Sodium 134 mmol/L (137-145)
--- NOTE | 2023-10-01 07:38 | WPDANESEPPF ---
Anes - Initial Pre Proc Eval Procedure: Operation Date: 10/01/23 07:30 Proposed Procedures p Laparoscopic Cholecystectomy - Pratik Ruby MD Date/Time: 10/01/23 07:38 Surgeon: Michelle Luna MD Pre Op Diagnosis: Acute Cholecystitis Patient Data Age: 53 Gender: F Height: 1.68 m Weight: 97.5 kg Last Vital Signs Temp 36.1 C L 09/30/23 21:32 Pulse 71 09/30/23 21:32 Resp 21 H 09/30/23 21:32 BP 152/78 H 09/30/23 21:32 Pulse Ox 95 09/30/23 21:32 O2 Del Method Room Air 09/30/23 20:10 Allergies Allergy/AdvReac Type Severity Reaction Status Date / Time gentian jake Allergy Rash Verified 09/29/23 12:56 Tetracyclines AdvReac Other Verified 09/29/23 12:56 Home Medications Medication Instructions Recorded Confirmed Type lisinopril 40 mg tablet 40 mg PO DAILY #90 tabs 03/24/23 09/29/23 Rx norethindrone acetate 5 mg tablet 5 mg PO BID 06/29/23 09/29/23 History atorvastatin 20 mg tablet 20 mg PO DAILY #90 tabs 07/11/23 09/29/23 Rx ondansetron 4 mg disintegrating 4 mg PO Q8H PRN nausea and 08/01/23 09/29/23 Rx tablet vomiting 5 days #20 tabs clopidogrel 75 mg tablet See Rx Instructions .Route 08/23/23 09/29/23 Rx .COMPLEX #90 tabs allopurinol 100 mg tablet 100 mg PO BID #180 tabs 09/13/23 09/29/23 Rx metoprolol succinate 50 mg 50 mg PO DAILY #90 tabs 09/13/23 09/29/23 Rx tablet,extended release 24 hr apixaban 5 mg tablet (Eliquis) 5 mg PO BID 09/29/23 09/29/23 History Laboratory Tests 09/30/23 10/01/23 06:26 05:53 WBC 35.8 H K/mm3 Pending (4.5-10.0) RBC 4.17 L M/mm3 Pending (4.2-5.4) Hgb 9.8 L g/dL Pending (12.0-15.0) Hct 31.7 L % Pending (37.0-47.0) MCV 76.0 L D fl Pending (80-100) MCH 23.5 L pg Pending (26-34) MCHC 30.9 L g/dl Pending (32-36) RDW 18.4 H % Pending (11.5-14.5) Plt Count 369 k/mm3 Pending (150-375) MPV 10.4 fl Pending (7.4-10.4) Immature Gran % (Auto) 1.7 H % Pending (0-0.5) Neut % (Auto) 90.7 H % Pending (45.5-73.1) Lymph % (Auto) 2.9 L % Pending (18.3-44.2) Meeker % (Auto) 4.2 % Pending (2.6-8.5) Eos % (Auto) 0.2 % Pending (0-4.4) Baso % (Auto) 0.3 % Pending (0.2-1.2) Lymph # (Auto) 1.05 K/mm3 Pending (0.9-3.2) Meeker # (Auto) 1.5 H K/mm3 Pending (0.1-0.6) Eos # (Auto) 0.1 K/mm3 Pending (0-0.3) Baso # (Auto) 0.1 K/mm3 Pending (0.0-0.1) Abs Immat Gran (auto) 0.60 H K/mm3 Pending (0.00-0.031) Absolute Neuts (auto) 32.5 H K/mm3 Pending (1.3-6.7) Absolute Nucleated RBC 0.0 K/mm3 Pending (0.0-0.012) Nucleated RBC % 0.0 % Pending (0.0-0.2) Sodium 137 mmol/L 134 L mmol/L (137-145) (137-145) Potassium 3.2 L mmol/L 3.0 L mmol/L (3.4-5.0) (3.4-5.0) Chloride 104 mmol/L 103 mmol/L (98-107) (98-107) Carbon Dioxide 24 mmol/L 27 mmol/L (22-30) (22-30) Anion Gap 9 mmol/L 4 L mmol/L (8-16) (8-16) BUN 12 mg/dL 12 mg/dL (7-17) (7-17) Creatinine 1.00 mg/dL 1.00 mg/dL (0.7-1.0) (0.7-1.0) Estim Creat Clear Calc 69 ml/min 69 ml/min Estimated GFR 58 L 58 L (59 - ) (59 - ) Glucose 115 H mg/dL 102 mg/dL (65-110) (65-110) Lactic Acid 1.0 mmol/L (0.7-2.0) Calcium 8.5 mg/dL 8.2 L mg/dL (8.4-10.2) (8.4-10.2) Total Bilirubin 0.6 mg/dL 0.6 mg/dL (0.2-1.3) (0.2-1.3) Direct Bilirubin 0.0 mg/dL (0-0.3) AST 161 H U/L 116 H U/L (14-36) (14-36) ALT 88 H U/L 68 H U/L (6-35) (6-35) Alkaline Phosphatase 120 U/L 120 U/L (38-126) (38-126) Total Protein 6.0 L g/dL 6.0 L g/dL (6.3-8.2) (6.3-8.2) Albumin 3.1 L g/dL 2.8 L g/dL (3.5-5.1) (3.5-5.1) Lipase 42 U/L 28 U/L (23-300) (23-300) Blood Type A Positive Antibody Screen Negative Patient hx anesthesia problems: none Family hx anesthesia problems: none
--- NOTE | 2023-10-01 07:39 | WPDHPUPDATE1 ---
History and Physical Update Update Date/Time: 10/01/23 07:39 History and Physical has been reviewed, including an updated exam of the patient. There are NO changes in the patient's condition. Risks, benefits, and alternatives have been discussed and questions answered. Patient agrees to proceed with procedure.
--- NOTE | 2023-10-01 07:40 | WPDPN ---
Progress Note: A&P Assessment and Plan (1) Symptomatic cholelithiasis: Code(s): K80.20 - Calculus of gallbladder without cholecystitis without obstruction Status: Acute Assessment and Plan: Patient has no evidence of acute cholecystitis by imaging. She does have intractable right upper quadrant abdominal pain and poor p.o. intake due to this pain. HIDA scan was normal for uptake of the gallbladder. We will go and proceed with urgent laparoscopic cholecystectomy possible open cholecystectomy today. Risks, benefits, indications, and expected outcomes were discussed with the patient and/or family members. Specific risks to include bleeding and possible need for blood transfusion, infection, bile leak, injury to other organs, common bile duct injury, and conversion to open cholecystectomy has been discussed. I have answered all their questions and they agreed to proceed with surgery as outlined above. Subjective Date/time seen: 10/01/23 07:40 Interval history: Patient to have chronic abdominal pain. The tolerate a small amount of clear liquids yesterday. HIDA scan today showed filling of the gallbladder with preop tracer. Cystic duct was not occluded. Small bowel filled with tracer so there was no obstructing the common bile duct. Exam GI: Other: Soft nondistended. Gallbladder not palpable. Moderate tenderness right upper quadrant. Objective Data Vital Signs Vital Signs: Vital Signs - 24 hr 09/30/23 10:52 09/30/23 08:05 09/30/23 14:00 Temperature 36.4 C Pulse Rate 66 66 Respiratory Rate 18 Blood Pressure 171/89 H Pulse Oximetry 97 Oxygen Delivery Room Air 09/30/23 20:10 09/30/23 21:32 Temperature 36.1 C L Pulse Rate 66 71 Respiratory Rate 18 21 H Blood Pressure 152/78 H Pulse Oximetry 97 95 Oxygen Delivery Room Air Intake/Output Intake/Output: Intake & Output 09/28/23 09/29/23 09/30/23 10/01/23 23:59 23:59 23:59 23:59 Intake Total 1600 1720 1350 Output Total 0 Balance 1600 1720 1350 Meds/Results Medications: Active Medications Generic Name Dose Route Start Last Admin Trade Name Freq PRN Reason Stop Dose Admin Acetaminophen 650 mg 09/29/23 13:02 Acetaminophen 325 Mg Tablet PO Q4H PRN Mild Pain (1-3) or Fever Hydrocodone Bitart/Acetaminophen 1 tab 09/29/23 13:02 Hydrocodone/Acetaminophen (*Crx) 5-325 Mg Tablet PO Q4H PRN Moderate Pain (4-6) Hydromorphone HCl 1 mg 09/29/23 15:23 10/01/23 06:32 Hydromorphone Hcl Inj (*Crx) 1 Mg/Ml Syr IV PUSH 1 mg Q3H PRN Administration Pain Rated 7-10 Lactated Ringer's 1,000 mls @ 100 mls/hr 09/29/23 13:05 10/01/23 06:21 Lr - Lactated Ringers Iv IV CONT 100 mls/hr .Q10H ANA Administration Piperacillin/Tazobactam/Dextrose 3.375 gm in 50 mls @ 100 mls/hr 09/29/23 16:00 10/01/23 03:31 Zosyn 3.375 Gm/Ns 50 Ml IVPB 100 mls/hr Q6H ANA Administration Lisinopril 40 mg 09/29/23 16:16 09/30/23 10:52 Lisinopril 20 Mg Tablet PO 40 mg DAILY ANA Administration Metoprolol Succinate 50 mg 09/29/23 16:20 09/30/23 10:52 Metoprolol Succinate Ext Rel 50 Mg Tabcr PO 50 mg DAILY ANA Administration Miscellaneous Information 0 each 09/29/23 00:01 10/01/23 07:04 Norethindrone Is Non-Formulary. Use Pt Own Supply? XX 10/29/23 00:00 Not Given CLARIFY ANA Morphine Sulfate 2 mg 09/29/23 13:02 09/29/23 14:07 Morphine Sulfate (*Crx) 2 Mg/Ml Inj IV PUSH 2 mg Q4H PRN Administration Pain Rated 7-10 Ondansetron HCl 4 mg 09/29/23 15:24 09/29/23 20:47 Ondansetron Inj 4 Mg/2 Ml Vial IV PUSH 4 mg Q4HR PRN Administration Nausea And Vomiting Pantoprazole Sodium 40 mg 09/30/23 09:00 09/30/23 10:37 Pantoprazole Sodium Iv 40 Mg Vial IV PUSH 40 mg QAM ANA Administration Polyethylene Glycol 17 gm 09/30/23 09:00 09/30/23 16:56 Polyethylene Glycol 3350 17 Gm Powd.Pack PO Not Given QAM ANA Psy
[2023-10-01] MEDS: LACTATED RINGERS 1,000 ML 30 ML IV CONT ×2 (07:45→09:57)
--- NOTE | 2023-10-01 10:07 | W.PM.PROC2 ---
Procedure Note - Detailed Date of Procedure 10/01/23 Pre-op Diagnosis Acute Cholecystitis Post-op Diagnosis Other (Gangrenous cholecystitis secondary to cholelithiasis) Procedure Performed Laparoscopic cholecystectomy. Surgeon Pratik Ruby MD Rn Gyn ANAY Flynn Anesthesia General Indications Patient is a 53 year white female who was transferred [facility] after she presents and there was severe right upper quadrant abdominal pain that radiated to her back. CT scan at [facility] revealed only a dilated gallbladder with no gallbladder wall thickening and no pericholecystic inflammatory changes or fluid. Multiple gallstones were seen. After transfer her [facility] white blood count elevated to over 30,000. Remain afebrile. HIDA scan was performed actually showing normal uptake into the gallbladder suggestive of patent cystic duct. Given her intractable right for abdominal pain slight elevation in liver enzymes today she is being brought to the operating room for a urgent laparoscopic cholecystectomy. Findings Gallbladder was actually gangrenous but without perforation. There were some fibropurulent adhesions of the omentum to the gallbladder wall which were easily stripped down bluntly. Multiple gallstones were noted within the gallbladder. The degree of inflammation and gangrene the gallbladder was definitely worse and imaging suggested. Description of Procedure After informed consent was obtained patient brought to the operating room she was placed supine position and general endotracheal anesthesia was administered. The abdomen is then prepped and draped in usual sterile fashion. A time-out was then performed correctly identifying the patient as well as procedure to be performed. She was already on scheduled IV antibiotics. Enter the abdomen left upper quadrant utilizing a 5mm Optiview port. Once inside and insufflated to adequate pneumoperitoneum a 20mmHg of CO2. The omentum was draped over the gallbladder and I then placed additional laparoscopic trocar ports to include a 10mm epigastric trocar port and 2 right lateral subcostal 5mm trocar ports and a 5mm periumbilical trocar port. I then was able to bluntly remove the omentum off of the gallbladder. Were some adhesions of the omentum to the edge of the lateral portion the right lobe of liver which were divided utilizing electrocautery. This then allowed me to see the gallbladder and it was completely gangrenous with 3 discoloration of the whole wall the gallbladder. The gallbladder was not perforated however. Due to the distention of the gallbladder I then proceeded to decompress the gallbladder with laparoscopic decompressing needle. I then was able to hold the gallbladder at the dome and elevated the gallbladder over the right half fluid for the right shoulder. Second grasper was then used to hold the gallbladder in the at the infundibulum. I then stripped on the visceral peritoneum around the infundibulum gallbladder to identify what appeared to be the cystic duct. Cystic duct was then dissected out circumferentially. I then dissected medial to the cystic duct and really did not find a cystic artery as it likely had thrombosed causing the gangrenous gallbladder. Once I felt that I had the critical view I then placed 2 clips proximally cystic duct and 2 clips distally high on infundibular gallbladder. The cystic duct was then divided Endo Edward. I then very carefully dissected the gallbladder off the liver bed. In the upper 1/3 of the posterior wall the gallbladder it was completely necrotic and prety much fell apart upon retraction of the gallbladder and some gallstones fell out of the gallbladder which were quickly retrieved with the the stone grasper. One acutely resected the gallbladder off the liver the posterior wall the upper 1/3 of the gallbladder was left in place. The patient was on Plavix and I did not want to cause any further bleeding fro
[2023-10-01] MEDS: METOPROLOL SUCCINATE EXT REL 50 MG TABCR PO (11:21)
[2023-10-01] MEDS: PANTOPRAZOLE SODIUM IV 40 MG VIAL IV PUSH (11:22)
[2023-10-01] MEDS: polyethylene glycoL 3350 17 GM POWD.PACK PO (11:23)
[2023-10-01] MEDS: lisinopriL 20 MG TABLET 40 MG PO (11:23)
[2023-10-01] MEDS: PSYLLIUM POWDER PACKET 1 PACKET PO (11:23)
[2023-10-01] MEDS: POTASSIUM CHLORIDE INJ 40 MEQ in SODIUM CHLORIDE 0.9% IV 500 ML 130 MEQ IVPB (11:28)
--- NOTE | 2023-10-01 15:01 | PC.NURSE ---
Dr Ruby and hospitalist Vibha Lucero both entered orders for PO potassium and IV potassium. I confirmed with hospitalist to only administer one dose of each today. The duplicate dose will be non-admined.
--- NOTE | 2023-10-01 15:01 | PM.IMPN ---
Progress Note: A&P Assessment and Plan (1) Acute cholecystitis: Code(s): K81.0 - Acute cholecystitis Status: Inactive Assessment and Plan: CT Abd/Pelvis:Gallbladder hydrops with cholelithiasis and dilation of the extrahepatic ducts. No obstructing stone or mass detected. No significant gallbladder inflammatory change. Correlate with biliary labs and consider MRCP or ERCP. Tampons are noted in a patient that is reportedly postmenopausal according to the prior pelvic ultrasound. General surgery following - HIDA unremarkable. Urgent lap dhara this morning, with necrotic aspects of gallbladder. Will continue Zosyn. tolerating clear liquids Continue antiemetics, IV fluids, and pain management. PPI. Continue to monitor renal function, LFTs, lipase daily. Requesting records from [facility] for confirmation of clearance. resume anticoagulation when appropriate (2) Adenomyosis of the uterus: Code(s): N80.03 - Adenomyosis of the uterus Status: Acute Assessment and Plan: Evaluation Manager consulted - plan for surgical intervention with her primary director of education unless bleeding becomes uncontrolled while here. Continue norethindrone acetate - 5?mg?PO?BID. (3) Hypertension: Qualifiers: Hypertension type: unspecified Qualified Code(s): I10 - Essential (primary) hypertension Code(s): I10 - Essential (primary) hypertension Status: Acute Assessment and Plan: Reportedly has not taken blood pressure medications for the past 2 days. BP medications restarted EKG ordered - new ST wave changes troponin negative x1 Plan Home Meds/Chronic Conditions - Gout: hold allopurinol - DVT: Eliquis, obtaining records from [facility] Diet: clears GI Prophylaxis: Pantoprazole DVT Prophylaxis: Eliquis, unclear if DVT has resolved so will hold SCDs Lines: pIV Code Status: Full Code Subjective Date/time seen: 10/01/23 15:01 Interval history: Patientis status post lap dhara this morning. She is still in discomfort but her pain is improved from admission. HIDA scan was unremarkable but upon surgical intervention, it was found part of her gallbladder was gangrenous with stones. General surgery following. Pain control and prn antiemetics available. Tolerating clear liquids now. Quality Manager consulted but will not intervene during this hospitalization unless bleeding becomes uncontrolled. Will continue zosyn empiric for now. She is receiving potassium repletion and will recheck this evening after infusion. Review of Systems Review of Systems: All systems reviewed & are unremarkable except as noted in HPI and below Exam Const: General: no acute distress and uncomfortable HENMT: Face/Nose/Sinus: Normal nares present Eyes: General: appearance normal, both eyes and all related structures Pupils: Equal, round and reactive pupils present EOM: EOMs intact bilaterally Resp: Effort & Inspection: normal respiratory effort Auscultation: clear to auscultation bilaterally Cardio: Rate: regular rate Rhythm: regular rhythm Other: S1-S2 present without murmur, rub, ectopy GI: GI Palp: Yes Soft to palpation and Yes Tenderness to palpation present (GI) Auscultation: normal bowel sounds Skin: General skin exam: normal color and no rashes or lesions noted Other: William drain in place in RUQ, draining serosanguineous fluid. Dressing clean, dry and intact. Neuro: Cranial nerves: Yes Equal, round and reactive pupils present Speech: normal speech Sensory Exam: normal sensation Other: A/Ox4 Extrem: General: normal to inspection Psych: Mental Status: mental status grossly normal Other: Good insight and judgment. Objective Data Vital Signs Vital Signs: Vital Signs - 24 hr 09/30/23 20:10 09/30/23 21:32 10/01/23 06:00 Temperature 97 F L 96.8 F L Pulse Rate 66 71 66 Respiratory Rate 18 21 H 21 H Blood Pressure 152/78 H 133/74 Pulse Oximetry 97 95 92 Oxygen D
[2023-10-01] MEDS: allopurinoL 100 MG TABLET PO (16:29)
[2023-10-01] MEDS: APIXABAN 5 MG TABLET PO (16:29)
[2023-10-01 17:22] LABS: Potassium 3.8 mmol/L (3.4-5.0)
[2023-10-01] MEDS: oxyCODONE HCL (*CRX) 5 MG TAB IR PO ×2 (19:32→23:48)
[2023-10-01] MEDS: SENNA/DOCUSATE SODIUM TABLET 1 TAB PO (19:34)
[2023-10-02] MEDS: LACTATED RINGERS 1,000 ML 100 ML IV CONT (02:06)
[2023-10-02] MEDS: PIPERACILLN/TAZ 3.375GM/NS50ML 3.375 GM/50 ML BAG IVPB ×4 (04:27→21:04)
[2023-10-02] MEDS: oxyCODONE HCL (*CRX) 5 MG TAB IR PO ×4 (04:36→19:53)
--- NOTE | 2023-10-02 04:45 | PC.NURSE ---
100 ml out of BRIDGET drain this shift, 30 ml at shift change and 70 ml now
[2023-10-02 06:00] VITALS: BP 181/97; PULSE 58; RESP 20; TEMP 36; O2SAT 96
[2023-10-02 06:40] LABS: Basophils Percent Auto 0.1 % (0.2-1.2); Hematocrit 30.1 % (37.0-47.0); Hemoglobin 8.6 g/dL (12.0-15.0); Immature Granulocyte Absolute 0.16 K/mm3 (0.00-0.031); Immature Granulocyte Percent A 0.8 % (0-0.5); Lymphocytes Absolute Auto 0.66 K/mm3 (0.9-3.2); Lymphocytes Percent Auto 3.4 % (18.3-44.2); Mean Corpuscular HGB Conc 28.6 g/dl (32-36); Mean Corpuscular Hemoglobin 22.8 pg (26-34); Mean Corpuscular Volume 79.8 fl (80-100); Monocytes Absolute Auto 0.7 K/mm3 (0.1-0.6); Monocytes Percent Auto 3.6 % (2.6-8.5); Neutrophils Absolute Auto 18.1 K/mm3 (1.3-6.7); Neutrophils Percent Auto 92.1 % (45.5-73.1); Platelet Count Result 365 k/mm3 (150-375); Red Blood Count 3.77 M/mm3 (4.2-5.4); Red Cell Distribution Width 18.3 % (11.5-14.5); White Blood Count 19.6 K/mm3 (4.5-10.0)
[2023-10-02 06:58] LABS: Alanine Aminotransferase 84 U/L (6-35); Albumin Level 2.8 g/dL (3.5-5.1); Alkaline Phosphatase 104 U/L (38-126); Anion Gap 8 mmol/L (8-16); Aspartate Amino Transferase 135 U/L (14-36); Bilirubin,Total 0.4 mg/dL (0.2-1.3); Blood Urea Nitrogen 13 mg/dL (7-17); Calcium 8.1 mg/dL (8.4-10.2); Carbon Dioxide 22 mmol/L (22-30); Chloride 107 mmol/L (98-107); Estimated CRCL calculation 63 ml/min; Estimated Glomerular Filt Rate 52; Glucose 156 mg/dL (65-110); Potassium 3.4 mmol/L (3.4-5.0); Sodium 137 mmol/L (137-145)
[2023-10-02 08:00] VITALS: BP 144/86
[2023-10-02 08:46] LABS: Anisocytosis 1+ (NORMAL); Hypochromasia 1+ (NORMAL); Platelet Estimate Adequate (Adequate); Schistocytes None Seen (NORMAL); Target Cells 1+ (NORMAL)
[2023-10-02] MEDS: allopurinoL 100 MG TABLET PO ×2 (10:19→18:20)
[2023-10-02] MEDS: PANTOPRAZOLE SODIUM IV 40 MG VIAL IV PUSH (10:20)
[2023-10-02] MEDS: lisinopriL 20 MG TABLET 40 MG PO (10:20)
[2023-10-02] MEDS: ATORVASTATIN 20 MG TABLET PO (10:21)
[2023-10-02] MEDS: APIXABAN 5 MG TABLET PO ×2 (10:21→18:20)
[2023-10-02] MEDS: CLOPIDOGREL BISULFATE 75 MG TABLET BY MOUTH (10:21)
[2023-10-02 10:22] VITALS: PULSE 68
[2023-10-02] MEDS: METOPROLOL SUCCINATE EXT REL 50 MG TABCR PO (10:22)
[2023-10-02] MEDS: polyethylene glycoL 3350 17 GM POWD.PACK PO (10:23)
--- NOTE | 2023-10-02 11:01 | WPDPN ---
Progress Note: A&P Assessment and Plan (1) Gangrenous cholecystitis: Code(s): K81.0 - Acute cholecystitis Status: Acute Assessment and Plan: Postop day 1 status post laparoscopic cholecystectomy for gangrenous acute cholecystitis due to gallstones. She is much improved today. Severe right upper quadrant abdominal pain is improved. She is able tolerate liquids and advance to full liquid diet already. Will go ahead and advance her to a a regular diet today. Potassium is just a little bit lower go ahead and give her 40mg p.o. potassium today. Hep-Lock IV fluids she seems to be drinking very well. [place] [id number] [place] [id number] today. She will need to continue IV antibiotics for right now. We will trend her white blood cell count if it continues to decrease then can likely switch over to oral antibiotics in next 24 to 48 hours hopefully home after that on some oral antibiotics. Plan will be to remove the BRIDGET drain prior to going home as long as there is no bile coming out. Continue supportive management. All of her blood thinners have been restarted today. Subjective Date/time seen: 10/02/23 11:01 Interval history: Patient feels better today. He is postop day 1 after laparoscopic cholecystectomy for a gangrenous cholecystitis secondary to gallstones. She has been able to clear liquids and advanced to a full liquid diet without difficulty. No nausea or vomiting. He only has pain when she gets to the bathroom. White blood cell count is down to 19,000 today. Enzymes are all decreasing. No bile in her BRIDGET drain today. Exam GI: Other: Abdomen is soft and nondistended. Mild tenderness just at the port site incisions. BRIDGET drain serosanguineous output minimal. No bile in the BRIDGET drain. Objective Data Vital Signs Vital Signs: Vital Signs - 24 hr 10/01/23 11:16 10/01/23 11:21 10/01/23 11:56 Temperature 29.4 C L 37.1 C Pulse Rate 62 61 61 Respiratory Rate 16 16 Blood Pressure 147/79 H 144/83 H Pulse Oximetry 92 92 Oxygen Delivery 10/01/23 16:34 10/01/23 15:00 10/01/23 20:00 Temperature 35.7 C L 34.8 C L Pulse Rate 64 63 64 Respiratory Rate 16 16 16 Blood Pressure 152/83 H 146/81 H Pulse Oximetry 92 92 92 Oxygen Delivery Room Air 10/01/23 22:00 10/02/23 06:00 10/02/23 08:00 Temperature 36.0 C L 36.0 C L Pulse Rate 63 58 L Respiratory Rate 19 20 Blood Pressure 151/81 H 181/97 H 144/86 H Pulse Oximetry 96 96 Oxygen Delivery 10/02/23 10:22 Temperature Pulse Rate 68 Respiratory Rate Blood Pressure Pulse Oximetry Oxygen Delivery Intake/Output Intake/Output: Intake & Output 09/29/23 09/30/23 10/01/23 10/02/23 23:59 23:59 23:59 23:59 Intake Total 1600 1720 3585 1890 Output Total 0 10 100 Balance 1600 1720 3575 1790 Meds/Results Medications: Active Medications Generic Name Dose Route Start Last Admin Trade Name Freq PRN Reason Stop Dose Admin Acetaminophen 650 mg 09/29/23 13:02 Acetaminophen 325 Mg Tablet PO Q4H PRN Mild Pain (1-3) or Fever Hydrocodone Bitart/Acetaminophen 1 tab 09/29/23 13:02 Hydrocodone/Acetaminophen (*Crx) 5-325 Mg Tablet PO Q4H PRN Moderate Pain (4-6) Allopurinol 100 mg 10/01/23 17:00 10/02/23 10:19 Allopurinol 100 Mg Tablet PO 100 mg BID ANA Administration Apixaban 5 mg 10/01/23 17:00 10/02/23 10:21 Apixaban 5 Mg Tablet PO 5 mg BID ANA Administration Atorvastatin Calcium 20 mg 10/02/23 09:00 10/02/23 10:21 Atorvastatin 20 Mg Tablet PO 20 mg DAILY ANA Administration Clopidogrel Bisulfate 75 mg 10/02/23 09:00 10/02/23 10:21 Clopidogrel Bisulfate 75 Mg Tablet BY MOUTH 75 mg DAILY ANA Administration Hydromorphone HCl 1 mg 09/29/23 15:23 10/01/23 20:23 Hydromorphone Hcl Inj (*Crx) 1 Mg/Ml Syr IV PUSH 1 mg Q3H PRN Administration Pain Rated 7-10 Piperacillin/Tazobactam/Dextrose 3.375 gm in 50 mls @ 100 mls/hr
--- NOTE | 2023-10-02 12:04 | PM.IMPN ---
Progress Note: A&P Assessment and Plan (1) Acute cholecystitis: Code(s): K81.0 - Acute cholecystitis Status: Inactive Assessment and Plan: CT Abd/Pelvis:Gallbladder hydrops with cholelithiasis and dilation of the extrahepatic ducts. No obstructing stone or mass detected. No significant gallbladder inflammatory change. Correlate with biliary labs and consider MRCP or ERCP. Tampons are noted in a patient that is reportedly postmenopausal according to the prior pelvic ultrasound. General surgery following - HIDA unremarkable. Urgent lap dhara 10/01, with necrotic aspects of gallbladder. Will continue Zosyn and plan to transition to PO in next 1-2 days. tolerating full liquids, ready to advance to regular diet. Continue antiemetics and pain management PRN. PPI. Continue to monitor renal function, LFTs, lipase daily. Requesting records from [facility] for confirmation of clearance. home anticoagulation resumed (2) Adenomyosis of the uterus: Code(s): N80.03 - Adenomyosis of the uterus Status: Acute Assessment and Plan: Jewel Grinder consulted - plan for surgical intervention with her primary boss dyer unless bleeding becomes uncontrolled while here. Continue norethindrone acetate - 5?mg?PO?BID. (3) Hypertension: Qualifiers: Hypertension type: unspecified Qualified Code(s): I10 - Essential (primary) hypertension Code(s): I10 - Essential (primary) hypertension Status: Acute Assessment and Plan: Reportedly has not taken blood pressure medications for the past 2 days. BP medications restarted EKG ordered - new ST wave changes troponin negative x1 Plan Home Meds/Chronic Conditions - Gout: hold allopurinol - DVT: Jenniequmaría, obtaining records from [facility] Diet: regular GI Prophylaxis: Pantoprazole DVT Prophylaxis: Eliquis, unclear if DVT has resolved so will hold SCDs Lines: pIV Code Status: Full Code Subjective Date/time seen: 10/02/23 12:04 Interval history: Patient is status post lap dhara day 1. She is still in discomfort but her pain is improved from admission. General surgery following. Pain control and prn antiemetics available. Tolerating full liquids, and feels ready to advance. Enrichment Teacher consulted but will not intervene during this hospitalization unless bleeding becomes uncontrolled. Will continue Zosyn empirically for now. WBC trending down, will continue to monitor. Potassium has improved. Plan to continue IV AB and transition to PO within the next few days. Review of Systems Review of Systems: All systems reviewed & are unremarkable except as noted in HPI and below Exam Const: General: no acute distress and uncomfortable HENMT: Face/Nose/Sinus: Normal nares present Eyes: General: appearance normal, both eyes and all related structures Pupils: Equal, round and reactive pupils present EOM: EOMs intact bilaterally Resp: Effort & Inspection: normal respiratory effort Auscultation: clear to auscultation bilaterally Cardio: Rate: regular rate Rhythm: regular rhythm Other: S1-S2 present without murmur, rub, ectopy GI: GI Palp: Yes Soft to palpation and Yes Tenderness to palpation present (GI) Auscultation: abnormal bowel sounds Other: Hypoactive bowel sounds throughout. RUQ tenderness without guarding or refractory pain. Skin: General skin exam: normal color and no rashes or lesions noted Other: William drain in place in RUQ, draining serosanguineous fluid. Dressing clean, dry and intact. Neuro: Cranial nerves: Yes Equal, round and reactive pupils present Speech: normal speech Sensory Exam: normal sensation Other: A/Ox4 Extrem: General: normal to inspection Psych: Mental Status: mental status grossly normal Other: Good insight and judgment. Objective Data Vital Signs Vital Signs: Vital Signs - 24 hr 10/01/23 16:34 10/01/23 15:00 10/01/23 20:00 Temperature 96.2 F L 94.6 F L Pul
[2023-10-02 12:07] LABS: Alanine Aminotransferase 92 U/L (6-35); Alkaline Phosphatase 102 U/L (38-126); Anion Gap 8 mmol/L (8-16); Aspartate Amino Transferase 115 U/L (14-36); Bilirubin,Total 0.4 mg/dL (0.2-1.3); Blood Urea Nitrogen 14 mg/dL (7-17); Calcium 8.5 mg/dL (8.4-10.2); Carbon Dioxide 23 mmol/L (22-30); Chloride 106 mmol/L (98-107); Estimated CRCL calculation 69 ml/min; Estimated Glomerular Filt Rate 58; Glucose 111 mg/dL (65-110); Potassium 3.4 mmol/L (3.4-5.0); Sodium 137 mmol/L (137-145)
[2023-10-02 14:00] VITALS: BP 186/91; PULSE 55; RESP 16; TEMP 36.2; O2SAT 96
[2023-10-02 17:33] VITALS: BP 170/90
[2023-10-02] MEDS: POTASSIUM CHLORIDE 20 MEQ ER TABLET 40 MEQ PO (18:19)
[2023-10-02] MEDS: amLODIPine BESYLATE 2.5 MG TABLET PO (18:21)
[2023-10-02] MEDS: SENNA/DOCUSATE SODIUM TABLET 1 TAB PO (19:54)
[2023-10-02 20:44] VITALS: BP 161/92; PULSE 54; RESP 17; TEMP 36.6; O2SAT 95
[2023-10-02] MEDS: HYDROmorphone HCL INJ (*CRX) 1 MG/ML SYR IV PUSH (22:44)
[2023-10-03] MEDS: oxyCODONE HCL (*CRX) 5 MG TAB IR PO ×5 (00:04→20:57)
[2023-10-03] MEDS: PIPERACILLN/TAZ 3.375GM/NS50ML 3.375 GM/50 ML BAG IVPB ×4 (04:04→20:59)
[2023-10-03 06:00] VITALS: BP 162/68; PULSE 69; RESP 18; TEMP 36.2; O2SAT 96
[2023-10-03] MEDS: CLOPIDOGREL BISULFATE 75 MG TABLET BY MOUTH (08:25)
[2023-10-03] MEDS: APIXABAN 5 MG TABLET PO ×2 (08:25→17:21)
[2023-10-03] MEDS: PANTOPRAZOLE 40 MG TABLET PO (08:25)
[2023-10-03] MEDS: allopurinoL 100 MG TABLET PO ×2 (08:25→17:21)
[2023-10-03] MEDS: lisinopriL 20 MG TABLET 40 MG PO (08:25)
[2023-10-03] MEDS: ATORVASTATIN 20 MG TABLET PO (08:25)
[2023-10-03] MEDS: HYDROmorphone HCL INJ (*CRX) 1 MG/ML SYR IV PUSH (08:32)
[2023-10-03 09:35] LABS: Basophils Percent Auto 0.2 % (0.2-1.2); Eosinophils Absolute Auto 0.1 K/mm3 (0-0.3); Eosinophils Percent Auto 0.7 % (0-4.4); Hematocrit 32.2 % (37.0-47.0); Hemoglobin 9.4 g/dL (12.0-15.0); Immature Granulocyte Absolute 0.07 K/mm3 (0.00-0.031); Immature Granulocyte Percent A 0.5 % (0-0.5); Lymphocytes Absolute Auto 1.79 K/mm3 (0.9-3.2); Lymphocytes Percent Auto 11.9 % (18.3-44.2); Mean Corpuscular HGB Conc 29.2 g/dl (32-36); Mean Corpuscular Hemoglobin 23.2 pg (26-34); Mean Corpuscular Volume 79.3 fl (80-100); Mean Platelet Volume 10.5 fl (7.4-10.4); Monocytes Absolute Auto 1.4 K/mm3 (0.1-0.6); Monocytes Percent Auto 9.3 % (2.6-8.5); Neutrophils Absolute Auto 11.7 K/mm3 (1.3-6.7); Neutrophils Percent Auto 77.4 % (45.5-73.1); Platelet Count Result 423 k/mm3 (150-375); Red Blood Count 4.06 M/mm3 (4.2-5.4); Red Cell Distribution Width 18.4 % (11.5-14.5); White Blood Count 15.1 K/mm3 (4.5-10.0)
[2023-10-03 09:51] LABS: Alanine Aminotransferase 91 U/L (6-35); Albumin Level 2.9 g/dL (3.5-5.1); Alkaline Phosphatase 103 U/L (38-126); Anion Gap 7 mmol/L (8-16); Aspartate Amino Transferase 119 U/L (14-36); Bilirubin,Total 0.3 mg/dL (0.2-1.3); Blood Urea Nitrogen 14 mg/dL (7-17); Calcium 8.2 mg/dL (8.4-10.2); Carbon Dioxide 25 mmol/L (22-30); Chloride 107 mmol/L (98-107); Estimated CRCL calculation 63 ml/min; Estimated Glomerular Filt Rate 52; Glucose 85 mg/dL (65-110); Lipase 150 U/L (23-300); Potassium 3.4 mmol/L (3.4-5.0); Sodium 139 mmol/L (137-145)
[2023-10-03 10:43] LABS: Hypochromasia 2+ (NORMAL); Schistocytes None Seen (NORMAL); Target Cells 1+ (NORMAL)
--- NOTE | 2023-10-03 10:53 | PCNFU ---
Nutrition Follow-Up Complete: Unintended weight loss as related to acute dhara as evidenced by weight loss of 26 ibs in 2 months or 11%, significant. Goal:Meet estimated nutritional needs. Pt is meeting goal. continue with same goal. Pt current nutrition is Regular, ensure compact BID in place. Nutrition recommendation: continue with current plan of care. Last recorded weight is 97.5 kg. Bowel Motility: +BM 09/30 Labs Reviewed: Hgb:9.4, HCT:32.2, alb:2.9, GFR:52, Cr:1.1 Meds Noted:eliquis Skin: no skin issues noted Additional Notes: Pt diet advanced to regular, intake good at 50-100% of meals. Pt drinking Ensure compact as well. Encourage good po intake. Will monitor weight, labs, skin, diet orders,meds every 7 days.
--- NOTE | 2023-10-03 10:57 | WPDPN ---
Progress Note: A&P Assessment and Plan (1) Gangrenous cholecystitis: Code(s): K81.0 - Acute cholecystitis Status: Acute Assessment and Plan: Doing well now after laparoscopic cholecystectomy for gangrenous cholecystitis. Her white blood cell count has steadily decreased from 30,000 down to 15,000. We will continue with IV antibiotics today. Plan on switching over to oral antibiotics for least 10 days after discharge. Continue low-fat diet. She did get a dose of IV narcotic pain medicine today. I have asked her to try and use oxycodone or hydrocodone for pain medications rather than IV pain medications see we can discharge tomorrow. (2) Antiplatelet or antithrombotic long-term use: Code(s): Z79.02 - manager terminal (current) use of antithrombotics/antiplatelets Status: Acute Assessment and Plan: Plavix and Eliquis have been restarted. Subjective Date/time seen: 10/03/23 10:57 Interval history: Patient continues to do better every day. Tolerating a low-fat diet and states she is eating better than she has in several weeks. She does have pain right upper quadrant around her incisions and her drain site. The drain still has no bile within it. She did get some doses of IV narcotic pain medication today. White blood cell count is down to 15,000. No fever. Exam GI: Other: Abdomen is soft and nondistended. BRIDGET drain is in place with only minimal serous drainage. No bile drainage. Laparoscopic incisions are healing well without redness or drainage. Objective Data Vital Signs Vital Signs: Vital Signs - 24 hr 10/02/23 14:00 10/02/23 17:33 10/02/23 20:44 Temperature 36.2 C L 36.6 C Pulse Rate 55 L 54 L Respiratory Rate 16 17 Blood Pressure 186/91 H 170/90 H 161/92 H Pulse Oximetry 96 95 10/03/23 06:00 10/03/23 10:46 Temperature 36.2 C L Pulse Rate 69 48 L Respiratory Rate 18 Blood Pressure 162/68 H Pulse Oximetry 96 Intake/Output Intake/Output: Intake & Output 09/30/23 10/01/23 10/02/23 10/03/23 23:59 23:59 23:59 23:59 Intake Total 1720 3585 3070 50 Output Total 0 10 165 0 Balance 1720 3575 2905 50 Meds/Results Medications: Active Medications Generic Name Dose Route Start Last Admin Trade Name Freq PRN Reason Stop Dose Admin Acetaminophen 650 mg 09/29/23 13:02 Acetaminophen 325 Mg Tablet PO Q4H PRN Mild Pain (1-3) or Fever Hydrocodone Bitart/Acetaminophen 1 tab 09/29/23 13:02 Hydrocodone/Acetaminophen (*Crx) 5-325 Mg Tablet PO Q4H PRN Moderate Pain (4-6) Allopurinol 100 mg 10/01/23 17:00 10/03/23 08:25 Allopurinol 100 Mg Tablet PO 100 mg BID ANA Administration Apixaban 5 mg 10/01/23 17:00 10/03/23 08:25 Apixaban 5 Mg Tablet PO 5 mg BID ANA Administration Atorvastatin Calcium 20 mg 10/02/23 09:00 10/03/23 08:25 Atorvastatin 20 Mg Tablet PO 20 mg DAILY ANA Administration Clopidogrel Bisulfate 75 mg 10/02/23 09:00 10/03/23 08:25 Clopidogrel Bisulfate 75 Mg Tablet BY MOUTH 75 mg DAILY ANA Administration Hydromorphone HCl 1 mg 09/29/23 15:23 10/03/23 08:32 Hydromorphone Hcl Inj (*Crx) 1 Mg/Ml Syr IV PUSH 1 mg Q3H PRN Administration Pain Rated 7-10 Piperacillin/Tazobactam/Dextrose 3.375 gm in 50 mls @ 100 mls/hr 09/29/23 16:00 10/03/23 10:43 Zosyn 3.375 Gm/Ns 50 Ml IVPB 100 mls/hr Q6H ANA Administration Lisinopril 40 mg 09/29/23 16:16 10/03/23 08:25 Lisinopril 20 Mg Tablet PO 40 mg DAILY [facility] Administration Metoprolol Succinate 50 mg 09/29/23 16:20 10/03/23 10:46 Metoprolol Succinate Ext Rel 50 Mg Tabcr PO Not Given DAILY [facility] Ondansetron HCl 4 mg 09/29/23 15:24 09/29/23 20:47 Ondansetron Inj 4 Mg/2 Ml Vial IV PUSH 4 mg Q4HR PRN Administration Nausea And Vomiting Oxycodone HCl 5 mg 10/01/23 10:00 10/03/23 04:05 Oxycodone Hcl (*Crx) 5 Mg Tab Ir PO 5 mg Q4H PRN Administration Pain Rated 7-1
[2023-10-03 14:00] VITALS: BP 185/86; PULSE 53; RESP 16; TEMP 36.5; O2SAT 98
--- NOTE | 2023-10-03 15:03 | PM.IMPN ---
Progress Note: A&P Assessment and Plan (1) Acute cholecystitis: Code(s): K81.0 - Acute cholecystitis Status: Inactive Assessment and Plan: CT Abd/Pelvis:Gallbladder hydrops with cholelithiasis and dilation of the extrahepatic ducts. No obstructing stone or mass detected. No significant gallbladder inflammatory change. Correlate with biliary labs and consider MRCP or ERCP. Tampons are noted in a patient that is reportedly postmenopausal according to the prior pelvic ultrasound. General surgery following - HIDA unremarkable. Urgent lap dhara 10/01, with necrotic aspects of gallbladder. Will continue Zosyn and plan to transition to PO in next 1-2 days. Decreased activity tolerated. Tolerating liquids. (2) Adenomyosis of the uterus: Code(s): N80.03 - Adenomyosis of the uterus Status: Acute Assessment and Plan: Youth Worker consulted - plan for surgical intervention with her primary greenhouse instructor unless bleeding becomes uncontrolled while here. Continue norethindrone acetate - 5?mg?PO?BID. (3) Hypertension: Qualifiers: Hypertension type: unspecified Qualified Code(s): I10 - Essential (primary) hypertension Code(s): I10 - Essential (primary) hypertension Status: Acute Assessment and Plan: Stable on current medication, will continue current treatment. Plan Plan is to continue current treatment, increase activity as tolerated. Tolerating po liquids. Code Status: Full Code Subjective Date/time seen: 10/03/23 15:03 Interval history: Patient is feeling slightly better today. Pain under control. No shortness of breath or chest pain. No nausea or vomiting. Review of Systems Review of Systems: All systems reviewed & are unremarkable except as noted in HPI and below Exam Const: General: no acute distress and uncomfortable HENMT: Face/Nose/Sinus: Normal nares present Mouth: Yes dry mucous membranes Eyes: General: appearance normal, both eyes and all related structures Sclera: sclerae normal Pupils: Equal, round and reactive pupils present EOM: EOMs intact bilaterally Resp: Effort & Inspection: normal respiratory effort Auscultation: clear to auscultation bilaterally Cardio: Rate: regular rate and tachycardic Rhythm: regular rhythm Other: S1-S2 present without murmur, rub, ectopy GI: Auscultation: normal bowel sounds and abnormal bowel sounds Other: Hypoactive bowel sounds throughout. RUQ tenderness without guarding or refractory pain. Drain working Skin: General skin exam: normal color and no rashes or lesions noted Wounds: no wounds Other: William drain in place in RUQ, draining serosanguineous fluid. Dressing clean, dry and intact. Neuro: Cranial nerves: Yes Equal, round and reactive pupils present Speech: normal speech Motor exam (neuro): 5/5 motor strength present throughout Sensory Exam: normal sensation Other: A/Ox4 Extrem: General: normal to inspection Psych: Mental Status: mental status grossly normal Affect: Sad affect present Other: Good insight and judgment. Objective Data Vital Signs Vital Signs: Vital Signs - 24 hr 10/02/23 17:33 10/02/23 20:44 10/03/23 06:00 Temperature 36.6 C 36.2 C L Pulse Rate 54 L 69 Respiratory Rate 17 18 Blood Pressure 170/90 H 161/92 H 162/68 H Pulse Oximetry 95 96 Oxygen Delivery 10/03/23 10:46 10/03/23 08:25 Temperature Pulse Rate 48 L Respiratory Rate Blood Pressure Pulse Oximetry Oxygen Delivery Room Air Intake/Output Intake/Output: Intake & Output 09/30/23 10/01/23 10/02/23 10/03/23 23:59 23:59 23:59 23:59 Intake Total 1720 3585 3070 170 Output Total 0 10 165 30 Balance 1720 3575 2905 140 Meds/Results Medications: Active Medications Generic Name Dose Route Start Last Admin Trade Name Freq PRN Reason Stop Dose Admin Acetaminophen 650 mg 09/29/23 13:02 Acetaminophen 325 Mg Tablet PO Q4H PRN
[2023-10-03 15:24] VITALS: PULSE 53
[2023-10-03] MEDS: METOPROLOL SUCCINATE EXT REL 50 MG TABCR PO (15:24)
[2023-10-03 20:00] VITALS: PULSE 53; RESP 16; O2SAT 98
[2023-10-03 20:52] VITALS: BP 186/85; PULSE 55; RESP 18; TEMP 36.5; O2SAT 96
[2023-10-03] MEDS: SENNA/DOCUSATE SODIUM TABLET 1 TAB PO (20:57)
[2023-10-04] VITALS (8 sets, daily range): BP systolic 167–205; BP diastolic 88–118; PULSE 56–60; RESP 16–18; TEMP 36.5–36.6; O2SAT 97–98
[2023-10-04] MEDS: oxyCODONE HCL (*CRX) 5 MG TAB IR PO ×3 (01:38→09:13)
[2023-10-04] MEDS: PIPERACILLN/TAZ 3.375GM/NS50ML 3.375 GM/50 ML BAG IVPB ×2 (04:34→09:19)
[2023-10-04] MEDS: lisinopriL 20 MG TABLET 40 MG PO (06:20)
[2023-10-04] MEDS: METOPROLOL SUCCINATE EXT REL 50 MG TABCR PO (06:20)
--- NOTE | 2023-10-04 06:28 | PC.NURSE ---
called dr marques and notified of HT. orders to give pain med early. recheck bp and give morning bp meds early if still elevated.
[2023-10-04 06:33] LABS: Basophils Absolute Auto 0.1 K/mm3 (0.0-0.1); Basophils Percent Auto 0.4 % (0.2-1.2); Eosinophils Absolute Auto 0.2 K/mm3 (0-0.3); Eosinophils Percent Auto 1.4 % (0-4.4); Hematocrit 31.4 % (37.0-47.0); Hemoglobin 9.2 g/dL (12.0-15.0); Immature Granulocyte Absolute 0.07 K/mm3 (0.00-0.031); Immature Granulocyte Percent A 0.6 % (0-0.5); Lymphocytes Percent Auto 16.7 % (18.3-44.2); Mean Corpuscular HGB Conc 29.3 g/dl (32-36); Mean Corpuscular Hemoglobin 22.9 pg (26-34); Mean Corpuscular Volume 78.3 fl (80-100); Mean Platelet Volume 10.3 fl (7.4-10.4); Monocytes Absolute Auto 1.1 K/mm3 (0.1-0.6); Monocytes Percent Auto 9.9 % (2.6-8.5); Neutrophils Absolute Auto 8.1 K/mm3 (1.3-6.7); Platelet Count Result 422 k/mm3 (150-375); Red Blood Count 4.01 M/mm3 (4.2-5.4); Red Cell Distribution Width 18.2 % (11.5-14.5); White Blood Count 11.4 K/mm3 (4.5-10.0)
[2023-10-04] MEDS: hydrALAZINE HCL 20 MG/ML VIAL 10 MG IV PUSH ×2 (07:40→11:14)
[2023-10-04 08:15] LABS: Anisocytosis 1+ (NORMAL); Hypochromasia 1+ (NORMAL); Platelet Estimate Increased (Adequate)
[2023-10-04 08:16] LABS: Microcytosis 1+ (NORMAL); Ovalocytes 1+ (NORMAL); Schistocytes None Seen (NORMAL); Target Cells 1+ (NORMAL)
[2023-10-04] MEDS: amLODIPine BESYLATE 5 MG TABLET 10 MG PO (09:16)
[2023-10-04] MEDS: allopurinoL 100 MG TABLET PO (09:17)
[2023-10-04] MEDS: APIXABAN 5 MG TABLET PO (09:17)
[2023-10-04] MEDS: CLOPIDOGREL BISULFATE 75 MG TABLET BY MOUTH (09:17)
[2023-10-04] MEDS: ATORVASTATIN 20 MG TABLET PO (09:17)
[2023-10-04] MEDS: PANTOPRAZOLE 40 MG TABLET PO (09:17)
--- NOTE | 2023-10-04 09:43 | PM.PNGS ---
Progress Note: A&P Assessment and Plan (1) Gangrenous cholecystitis: Code(s): K81.0 - Acute cholecystitis Status: Acute Assessment and Plan: Postop day 3 following laparoscopic cholecystectomy for gangrenous cholecystitis. White blood cell count continues to trend down to 11,400 today. BRIDGET drain removed yesterday. She is tolerating a low-fat diet. Pain is well controlled on oral analgesics. Okay from our standpoint to discharge the patient on oral antibiotics when medically stable. Follow-up with Dr. Ruby in 2 weeks. Continue low-fat diet. (2) Antiplatelet or antithrombotic long-term use: Code(s): Z79.02 - senior living (current) use of antithrombotics/antiplatelets Status: Acute Assessment and Plan: Plavix and Eliquis have been restarted. Plan I have discussed the patient's case and plan of care with Dr. Haque. Subjective Subjective Date/Time Seen: 10/04/23 09:43 Post Op day: 3 (Laparoscopic cholecystectomy) Patient reports: no new complaints, feels better, tolerating a regular diet (Low-fat), voiding w/o difficulty, flatus, bowel movement and afebrile Interval history: This is a 53-year-old female who presented with suspected symptomatic cholelithiasis and possible acute cholecystitis. She was taken to the OR on 10/01/2023 and found to have gangrenous cholecystitis and underwent laparoscopic cholecystectomy. Chart reviewed. She has been on IV antibiotics and steadily improving. She is tolerating a low-fat diet. She is ambulating without any difficulties. She has transitioned to oral analgesics with pain well controlled. Her white blood cell count continues to trend down to 11,000 this morning. Her BP is high today even following her home medications. This is being managed by the Hospitalist. BRIDGET drain was removed yesterday. Review of Systems Review of Systems: All systems reviewed & are unremarkable except as noted in HPI and below Exam Const: General: comfortable and no acute distress GI: Inspection: non-distended, incision (incisions dry and intact, gauze dressing dry and intact over BRIDGET drain site) and other (No erythema at incisions) GI Palp: Yes Soft to palpation, Yes Tenderness to palpation present (GI) (in the RUQ, reportedly unchanged), No Guarding due to palpation present (GI) and No Hernia present Auscultation: normal bowel sounds Neuro: General: moves all extremities and no focal motor deficits Extrem: General: no calf tenderness and no edema Psych: Mental Status: mental status grossly normal Insight: Good insight present (Psych) Objective Data Vital Signs Vital Signs: Vital Signs - 24 hr 10/03/23 15:24 10/03/23 14:00 10/03/23 20:00 Temperature 97.7 F Pulse Rate 53 L 53 L 53 L Respiratory Rate 16 16 Blood Pressure 185/86 H Pulse Oximetry 98 98 Oxygen Delivery Room Air 10/03/23 20:52 10/04/23 04:25 10/04/23 04:27 Temperature 97.7 F 97.8 F Pulse Rate 55 L 56 L Respiratory Rate 18 16 Blood Pressure 186/85 H 194/118 H 196/112 H Pulse Oximetry 96 97 Oxygen Delivery Intake/Output Intake/Output: Intake & Output 10/01/23 10/02/23 10/03/23 10/04/23 23:59 23:59 23:59 23:59 Intake Total 3585 3070 800 540 Output Total 10 165 30 Balance 3575 2905 770 540 Meds/Results Medications: Active Medications Generic Name Dose Route Start Last Admin Trade Name Freq PRN Reason Stop Dose Admin Acetaminophen 650 mg 09/29/23 13:02 Acetaminophen 325 Mg Tablet PO Q4H PRN Mild Pain (1-3) or Fever Hydrocodone Bitart/Acetaminophen 1 tab 09/29/23 13:02 Hydrocodone/Acetaminophen (*Crx) 5-325 Mg Tablet PO Q4H PRN Moderate Pain (4-6) Allopurinol 100 mg 10/01/23 17:00 10/04/23 09:17 Allopurinol 100 Mg Tablet PO 100 mg BID AAN Administration Amlodipine Besylate 5 mg 10/04/23 17:00 Amlodipine Besylate 5 Mg Tablet PO BID ANA Apixaban 5 mg 10/01/23 17:00 10/04/23 09:17 Apixaban 5 Mg
--- NOTE | 2023-10-04 11:50 | PM.DS ---
DS: Admitting Diagnosis Discharge Date 10/04/2023 Admitting Diagnosis Acute cholecystitis DS: Discharge Diagnosis Discharge Diagnosis (1) Acute cholecystitis: Code(s): K81.0 - Acute cholecystitis Status: Inactive Assessment and Plan: CT Abd/Pelvis:Gallbladder hydrops with cholelithiasis and dilation of the extrahepatic ducts. No obstructing stone or mass detected. No significant gallbladder inflammatory change. Correlate with biliary labs and consider MRCP or ERCP. Tampons are noted in a patient that is reportedly postmenopausal according to the prior pelvic ultrasound. General surgery following - HIDA unremarkable. Urgent lap dhara 10/01, with necrotic aspects of gallbladder. Will continue Zosyn and plan to transition to PO in next 1-2 days. Decreased activity tolerated. Tolerating liquids. (2) Adenomyosis of the uterus: Code(s): N80.03 - Adenomyosis of the uterus Status: Acute Assessment and Plan: Bellperson consulted - plan for surgical intervention with her primary cardiovascular physician assistant unless bleeding becomes uncontrolled while here. Continue norethindrone acetate - 5?mg?PO?BID. (3) Hypertension: Qualifiers: Hypertension type: unspecified Qualified Code(s): I10 - Essential (primary) hypertension Code(s): I10 - Essential (primary) hypertension Status: Acute Assessment and Plan: Stable on current medication, will continue current treatment. (4) S/P laparoscopic cholecystectomy: Code(s): Z90.49 - Acquired absence of other specified parts of digestive tract Status: Acute Plan Plan is to continue current treatment, increase activity as tolerated. Tolerating po liquids. Code Status: Full Code DS: Summary Hospital Course Reason for hospitalization: Acute cholecystitis Hospital Course: 53 years old female was admitted with complaint of having abdominal pain. Patient was found acute cholecystitis. Surgery was consulted to perform laparoscopic cholecystectomy. Patient did not have any complication during the stay in the hospital. Today patient is feeling better and was discharged home stable condition. Patient blood pressure is slightly high. Patient was started on amlodipine. Patient will come back as an outpatient for blood pressure check next week. Time Spent with Patient Time attestation: Total time spent providing and/or coordinating discharge services: Exam Const: General: no acute distress and uncomfortable HENMT: Face/Nose/Sinus: Normal nares present Mouth: Yes dry mucous membranes Eyes: General: appearance normal, both eyes and all related structures Sclera: sclerae normal Pupils: Equal, round and reactive pupils present EOM: EOMs intact bilaterally Resp: Effort & Inspection: normal respiratory effort Auscultation: clear to auscultation bilaterally Cardio: Rate: regular rate and tachycardic Rhythm: regular rhythm Other: S1-S2 present without murmur, rub, ectopy GI: Auscultation: normal bowel sounds and abnormal bowel sounds Other: Hypoactive bowel sounds throughout. RUQ tenderness without guarding or refractory pain. Drain working Skin: General skin exam: normal color and no rashes or lesions noted Wounds: no wounds Other: William drain in place in RUQ, draining serosanguineous fluid. Dressing clean, dry and intact. Neuro: Cranial nerves: Yes Equal, round and reactive pupils present Speech: normal speech Motor exam (neuro): 5/5 motor strength present throughout Sensory Exam: normal sensation Other: A/Ox4 Extrem: General: normal to inspection Psych: Mental Status: mental status grossly normal Affect: Sad affect present Other: Good insight and judgment. DS: Data Data Completed and Pending Completed studies during hospitalization: Pending at discharge 10/01/23 08:13 Surgical [PTH] Routine Labs on day of discharge: Labs from last 24 hours 10/04/23 06:11 WBC 1
[2023-10-04] MEDS: HYDROcodone/acetaminophen (*CRX) 5-325 MG TABLET 1 TAB PO (14:20)
--- NOTE | 2023-10-04 14:45 | PC.NURSE ---
Pt BP's elevated overnight and continued through start of shift. Multiple calls made to ED with follow up vitals. All MDs/lever miller aware of BP issues. Asked MD if he wanted to send PRN hydralazine with parameters home as pt seems very compliant and knowledgeable. MD only willing to send with amlodipine added. Pt advised to take BP at least twice a day at home, keep a log to take to her primary cared, and educated on stroke symptoms. Advised pt to call 911 if any stroke symptoms developed and to call her MD is pressure remains elevated. Discharge instructions discussed thoroughly.
== END 2023-10-04 14:20 | disposition home or self-care (01) | DRG 418 ==
PROVIDERS: Nurse Practitioner; Student in an Organized Health Care Education/Training Program; Surgery; Admitting Provider General Practice; PCP Family Medicine; Visit Provider Internal Medicine
PROC: 0FT44ZZ Resection of Gallbladder, Percutaneous Endoscopic Approach (ICD-10-PCS; CPT 47562; principal; 2023-10-01 07:30)
DX: K80.00 Calculus of gallbladder with acute cholecystitis without obstruction (principal); K82.1 Hydrops of gallbladder; C91.10 Chronic lymphocytic leukemia of B-cell type not having achieved remission; K82.A1 Gangrene of gallbladder in cholecystitis; I73.9 Peripheral vascular disease, unspecified; N80.03 Adenomyosis of the uterus; I10 Essential (primary) hypertension; E66.9 Obesity, unspecified; Z68.34 Body mass index [BMI] 34.0-34.9, adult; I73.00 Raynaud's syndrome without gangrene; K21.9 Gastro-esophageal reflux disease without esophagitis; M10.9 Gout, unspecified; F17.210 Nicotine dependence, cigarettes, uncomplicated; Z86.718 Personal history of other venous thrombosis and embolism; Z79.01 Long term (current) use of anticoagulants; Z79.02 Long term (current) use of antithrombotics/antiplatelets
CPT/HCPCS: 36415; 78226; 80048; 80053; 80076; 83605; 83690; 84132; 84484; 85025; 85610; 86850; 86900; 86901; 88304; 93005; A9270; A9537; C1713; C9113; G0378; J0360; J1100; J1170; J2250; J2270; J2405; J2543; J2704; J3010; J3480; J7040; J7120

== ENCOUNTER 2024-01-23 11:26 | Outpatient (CLI) | payer MEDICARE, SELFPAY ==
[2024-01-23 12:00] LABS: Alanine Aminotransferase 17 U/L (6-35); Albumin Level 4.1 g/dL (3.5-5.1); Alkaline Phosphatase 88 U/L (38-126); Anion Gap 6 mmol/L (4-12); Aspartate Amino Transferase 21 U/L (14-36); Bilirubin,Total 0.4 mg/dL (0.2-1.3); Blood Urea Nitrogen 16 mg/dL (7-17); Carbon Dioxide 26 mmol/L (22-30); Chloride 107 mmol/L (98-107); Estimated Glomerular Filt Rate 52; Glucose 104 mg/dL (65-110); Potassium 3.7 mmol/L (3.4-5.0); Sodium 139 mmol/L (137-145)
[2024-01-23 12:03] LABS: Prothrombin Time 13.3 Seconds (11.1-14.7)
[2024-01-23 12:04] LABS: Partial Thromboplastin Time 29.7 Seconds (22.3-36.8)
== END 2024-01-23 11:27 | disposition home or self-care (01) ==
LOC: ANHSURGERY 11:30
PROVIDERS: Anesthesiology; PCP Family Medicine; Visit Provider Obstetrics & Gynecology
DX: N92.0 Excessive and frequent menstruation with regular cycle (principal); N18.30 Chronic kidney disease, stage 3 unspecified; Z01.818 Encounter for other preprocedural examination
CPT/HCPCS: 36415; 80053; 85610; 85730; 86850; 86900; 86901

== ENCOUNTER 2024-01-24 00:12 | Day surgery (SDC) | payer MEDICARE, SELFPAY ==
[2024-01-22 09:10] VITALS: BMI 36.6
--- NOTE | 2024-01-22 09:17 | PC.NURSE ---
Report to the Outpatient Waiting Room, entrance under the green pavilion located off [facility], at time 6:00 on date 01/24/24. Planned Procedure Time: 7:30. Time changes happen often and if your time is changed the preop area will call you the afternoon before. - You and your visitor will be asked to self-screen and do not enter if you have any COVID symptoms. - A mask is optional within the hospital at this time. Patients may have clear liquids (water, carbonated beverages, clear teas, apple juice) until 3 hours prior to surgery with a maximum of 20 ounces. - No food from midnight until time of surgery Take the following medications with a SIP of water the morning of surgery: AMLODIPINE, METOPROLOL DO NOT STOP ANY OF YOUR OTHER PRESCRIPTION MEDICATIONS PRIOR TO SURGERY ?EXCEPT THE FOLLOWING Medications to discontinue per physician: PLAVIX, ELIQUIS Date to take last dose: HAS ALREADY STOPPED Please no make-up, nail german, hairspray, perfume, deodorant, or body powder the day of surgery. No jewelry (including any body piercings) or valuables the day of surgery, leave them at home. Please take a shower or bath the night before, or the morning of, surgery with an antibacterial soap. Wear comfortable, loose fitting clothing. - Jewelry must be removed prior to entering the operating room. Rings and piercings that are not removed may be cut off. - The hospital will not accept responsibility for valuables. - Please leave all valuables, including medications, at home the day of surgery. If you are going home after surgery, a licensed charter driver must drive you home. - NO public transportation without another adult if you receive anesthesia. - We recommend that an adult stay with you for 24 hours following discharge. - We also recommend that you do not drive, make important decision, drink alcoholic beverages, or take any drugs that were not prescribed by your health care provider for at least 24 hours after your discharge time. Follow any additional instructions given to you from your surgeon. If you or anyone in your household have experienced Covid symptoms in the past week, please notify your surgeon or the nurse liaison at the phone number below for possible testing. Telephone instructions given to PT Marco GIL and asked if any additional questions and then verbalized understanding. Patient advised to call surgeon office or pre surgery nurse liaison [phone] if any additional questions.
[2024-01-24] VITALS (9 sets, daily range): BP systolic 131–178; BP diastolic 66–85; PULSE 48–59; RESP 14–18; TEMP 36.1–36.8; O2SAT 94–100
[2024-01-24] MEDS: ACETAMINOPHEN 500 MG TABLET 1000 MG PO (06:42)
--- NOTE | 2024-01-24 06:43 | WPDANESEPPF ---
Anes - Initial Pre Proc Eval Procedure: Operation Date: 01/24/24 07:30 Proposed Procedures p Total Laparoscopic Hysterectomy with Bilateral Salpingo-oophorectomy - Migdalia Wilson MD Date/Time: 01/24/24 06:43 Surgeon: Migdalia Wilson MD Pre Op Diagnosis: Menorrhagia Patient Data Age: 53 Gender: F Height: 1.65 m Weight: 99.8 kg Allergies Allergy/AdvReac Type Severity Reaction Status Date / Time gentian jake Allergy Rash Verified 01/22/24 09:09 Tetracyclines AdvReac Other Verified 01/22/24 09:09 Home Medications Medication Instructions Recorded Confirmed Type lisinopril 40 mg tablet 40 mg PO DAILY #90 tabs 03/24/23 01/22/24 Rx ondansetron 4 mg disintegrating 4 mg PO Q8H PRN nausea and 08/01/23 01/22/24 Rx tablet vomiting 5 days #20 tabs clopidogrel 75 mg tablet See Rx Instructions .Route 08/23/23 01/22/24 Rx .COMPLEX #90 tabs allopurinol 100 mg tablet 100 mg PO BID #180 tabs 09/13/23 01/22/24 Rx apixaban 5 mg tablet (Eliquis) 5 mg PO BID 09/29/23 01/22/24 History acetaminophen 325 mg tablet 650 mg PO Q4H PRN Mild Pain (1-3) 10/04/23 01/22/24 Rx Or Fever 7 days #30 tabs amlodipine 5 mg tablet (Norvasc) 5 mg PO BID 30 days #60 tabs 10/04/23 01/22/24 Rx metoprolol succinate 50 mg 25 mg PO DAILY #90 tabs 10/05/23 01/22/24 Rx tablet,extended release 24 hr atorvastatin 20 mg tablet See Rx Instructions .Route 01/02/24 01/22/24 Rx .COMPLEX #90 tabs Patient hx anesthesia problems: none Family hx anesthesia problems: none Results Review: All pre-operative results and documents have been reviewed as part of the pre-operative evaluation. [facility] Past Medical History Medical History (Updated 10/18/23 @ 14:48 by Cecily Felder) Adenomyosis of the uterus CLL (chronic lymphocytic leukemia) DVT (deep venous thrombosis) RLE - resolved as on 09/29/23 JOANN (generalized anxiety disorder) GERD (gastroesophageal reflux disease) History of arterial occlusion History of blood transfusion Hypertension Nicotine dependence, cigarettes, uncomplicated Obesity Pyoderma gangrenosa Raynauds syndrome (06/05/18) Superficial granulomatous pyoderma Vasculitis Surgical History Surgical History (Updated 10/18/23 @ 13:51 by Trang Gutierrez MA) History of adenoidectomy History of laparoscopic cholecystectomy 10/01/23 SAW Hx of tonsillectomy Family History Family History Father CHF (congestive heart failure) Grandparent Colon cancer Sibling Pancreatic cancer Sibling Pancreatic cancer Other Cerebrovascular accident Heart disease Hypertension Kidney disease Social History Social History Smoking packs per day: 0.5 Smoking cigarettes per day: 10.0 Years smoked: 38 Smoking pack-years: 19.00 Smoking status: Current every day smoker Tobacco type: cigarettes Second hand tobacco smoke exposure: Yes Alcohol intake: never Substance use: never Substance use type: does not use Other substance usage details: IN HER 20'S Do You Feel Safe in your Home?: No Lack of Transportation: No Lack of Food: Never True Current Housing: I Have Housing Concerned About Future Housing: No Difficulty Paying Gas/Electric Bills: No Difficulty Paying for Meds: No Currently Unemployed: No Education: Don't Know Difficulty w/ Childcare or Family Care: No Living arrangements: with family Additional living arrangements comments: DAUGHTER Occupation/Education: occupation Additional occupation/education comments: [employer] Spiritual care concerns: No Anes - Eval Final PreProcedure Day of Procedure 01/24/24 06:43 Patient weight: obese Heart: regular rate and rhythm Lungs: clear to auscultation Airway: Mallampati scale and special considerations (Lower perm retainer. ) Neurological: alert and oriented Last oral intake: >/= 8 hours
[2024-01-24] MEDS: KETOROLAC 15 MG/ML VIAL (*BKC) IV PUSH (06:53)
--- NOTE | 2024-01-24 07:16 | WPDHPUPDATE1 ---
History and Physical Update Update Date/Time: 01/24/24 07:16 History and Physical has been reviewed, including an updated exam of the patient. There are NO changes in the patient's condition. Risks, benefits, and alternatives have been discussed and questions answered. Patient agrees to proceed with procedure.
[2024-01-24 07:23] LABS: Alanine Aminotransferase 15 U/L (6-35); Albumin Level 4.2 g/dL (3.5-5.1); Alkaline Phosphatase 93 U/L (38-126); Anion Gap 8 mmol/L (4-12); Aspartate Amino Transferase 21 U/L (14-36); Bilirubin,Total 0.6 mg/dL (0.2-1.3); Blood Urea Nitrogen 19 mg/dL (7-17); Calcium 9.1 mg/dL (8.4-10.2); Carbon Dioxide 24 mmol/L (22-30); Chloride 109 mmol/L (98-107); Estimated CRCL calculation 63 ml/min; Estimated Glomerular Filt Rate 52; Glucose 120 mg/dL (65-110); Potassium 3.4 mmol/L (3.4-5.0); Sodium 141 mmol/L (137-145)
[2024-01-24 07:23] LABS: INR 0.9
[2024-01-24 07:24] LABS: Partial Thromboplastin Time 29.8 Seconds (22.3-36.8)
[2024-01-24] MEDS: ceFAZolin 2 GM/D5W 50 ML 2 GM/50 ML BAG IVPB (07:34)
[2024-01-24] MEDS: ceFAZolin SODIUM 1 GM VIAL (08:08)
[2024-01-24] MEDS: METHYLENE BLUE 0.5% INJ 10 ML AMPULE XX (09:00)
[2024-01-24] MEDS: LACTATED RINGERS 1,000 ML 30 ML IV CONT ×2 (09:31)
[2024-01-24 09:39] LABS: Glucose Point of Care 109 mg/dl (65-105)
[2024-01-24] MEDS: fentaNYL CITRATE INJ (*CRX) 100 MCG/2 ML VIAL 25 MCG IV PUSH ×4 (09:40→10:16)
--- NOTE | 2024-01-24 09:44 | W.PM.PROC2 ---
Procedure Note - Detailed Date of Procedure 01/24/24 Pre-op Diagnosis Menorrhagia Post-op Diagnosis Same Procedure Performed Total laparoscopic hysterectomy and bilateral salpingo-oophorectomy. Surgeon Migdalia Wilson MD Anesthesia General Findings Enlarged fibroid uterus, normal-appearing tubes and ovaries, normal-appearing vulva, vagina, cervix. Description of Procedure This patient was taken to the operating room. She was prepped and draped in the dorsal lithotomy position after induction of general anesthesia. The uterine manipulator and Liliya cup were placed. This was done with a speculum and tenaculum. The speculum was placed. The cervix was grasped with a tenaculum. The stay sutures were placed at 3 and 9:00 a.m.. The stay sutures of 0 Vicryl were brought through the appropriately sized Liliya cup. The tip of the ALIN manipulator was placed in the intrauterine cavity. The cup was slid into place around the cervix and into the fornices. It was locked into place. The sutures were then wrapped around the handle and tied under tension. A 5 mm skin incision was made in the left upper quadrant the abdomen. A 5 mm trocar was inserted into the intrauterine cavity under direct visualization of the scope. Pneumoperitoneum was achieved. A left lower quadrant 11 mm incision was made with scalpel. An 11 mm trocar was inserted into the anterior abdominal cavity under direct visualization the scope. A 5 mm infraumbilical incision was made with a scalpel and a 5 mm trocar was inserted the intra-abdominal cavity under direct visualization of the scope. Bilateral ureteral lysis was performed. This was done from the pelvic brim down to the uterine artery. This was done with careful dissection using sharp and blunt dissection. The infundibulopelvic ligaments were isolated after identification of the ureters bilaterally. These infundibulopelvic ligaments were cauterized and transected with LigaSure cautery. The para ovarian tissue was cauterized and transected with LigaSure cautery bilaterally. Moving around the ovary into the broad ligament the tissue was cauterized transected with LigaSure cautery. The round ligaments were cauterized transected with LigaSure cautery this was all done in a bilateral fashion. In a stepwise fashion along the lateral aspects of the uterus the round ligament and broad ligaments were cauterized transected down to the level of the uterine arteries. A bladder flap was created in the bladder was moved distally to the end of the cervix and over the Liliya cup. The bilateral uterine arteries were cauterized and transected. Colpotomy was then performed. In a circumferential fashion the vagina was transected using unipolar cautery. The incision was made down on the Liliya cup. The uterus, cervix, fallopian tubes and ovaries were taken out through the vagina. A pneumo occluder was placed in the vagina. The vaginal cuff was closed with a 0 V lock suture in a running fashion. The pelvis was irrigated with copious amounts antibiotic irrigation. The ureters were again examined and found to be intact and flowing freely under the uterine arteries into the bladder. Cystoscopy was performed. The cystoscope was inserted in the ureteral orifices were examined. methylene blue had been previously given was seen to egress from both ureteral orifices. The bladder was intact . The cystoscope was withdrawn. The vagina was irrigated with Betadine solution after removal of the Pneumo occluder. The patient was taken to recovery room. She was stable condition. Sponge lap and needle counts were correct x2. Drains Yes Packing No Pathology Yes Complications No immediate complications Condition Stable Disposition Floor
[2024-01-24] MEDS: DEXTROSE 5%/0.45% SOD CHL 1,000 ML 125 ML IV CONT ×2 (10:53→19:33)
[2024-01-24] MEDS: HYDROcodone/acetaminophen (*CRX) 10-325 MG TABLET 1 TAB PO ×2 (10:57→20:56)
[2024-01-24] MEDS: SIMETHICONE 80 MG TAB.CHEW PO ×2 (13:29→17:47)
[2024-01-24] MEDS: IBUPROFEN 600 MG TABLET PO (13:29)
[2024-01-24] MEDS: CLOPIDOGREL BISULFATE 75 MG TABLET BY MOUTH (17:47)
[2024-01-24] MEDS: APIXABAN 5 MG TABLET PO (17:47)
[2024-01-24] MEDS: KETOROLAC 30 MG/ML VIAL (*BKC) IV PUSH (20:56)
[2024-01-24] MEDS: amLODIPine BESYLATE 5 MG TABLET PO (20:57)
[2024-01-24] MEDS: allopurinoL 100 MG TABLET PO (20:57)
[2024-01-25 00:56] VITALS: BP 115/52; PULSE 49; RESP 16; TEMP 36.6; O2SAT 95
[2024-01-25 04:38] VITALS: BP 98/47; PULSE 47; RESP 18; TEMP 36.7; O2SAT 95
[2024-01-25 08:25] VITALS: BP 141/74; PULSE 49; RESP 16; TEMP 37.2; O2SAT 98
--- NOTE | 2024-01-25 08:28 | PM.GYNPNOP ---
CRIB ATTENDANT - A/P Postoperative Procedures: Procedures Operation Date: 01/24/24 07:30 Actual Procedure Side Surgeon p Total Laparoscopic Hysterectomy with Bilateral Salpingo-oophorectomy Bilateral Migdalia Wilson MD Postoperative day: 1 Postoperative status: doing well Postoperative plan: see orders Time Spent With Patient Time: Total time spent is greater than 50% in coordination of care (as documented) at patient's floor/unit and/or counseling patient: Time with patient: less than 15 minutes CRIB ATTENDANT- PN:Subj Post-Op Subjective Date/time seen: 01/25/24 08:28 Subjective: patient reports feeling better, patient has no complaints and pain is well controlled Exam Const: General: healthy appearing, comfortable and no acute distress Resp: Auscultation: clear to auscultation bilaterally, no rales, no rhonchi and no wheezes Cardio: Rate: regular rate Heart sounds: no click, no murmurs and no rubs GI: Inspection: non-distended Auscultation: normal bowel sounds Extrem: General: normal to inspection, no pedal edema and no calf tenderness CRIB ATTENDANT - PN: Obj Data Vital Signs Vital Signs: Vital Signs - 24 hr 01/24/24 09:31 01/24/24 09:41 01/24/24 09:45 Temperature 97.0 F L Pulse Rate 55 L 57 L Respiratory Rate 17 17 Blood Pressure 156/76 H 150/74 H Pulse Oximetry 100 98 94 Oxygen Delivery Simple Face Mask Room Air Room Air Oxygen Flow Rate 8 01/24/24 10:00 01/24/24 10:12 01/24/24 10:40 Temperature 97.9 F Pulse Rate 58 L 57 L 59 L Respiratory Rate 16 14 16 Blood Pressure 152/78 H 164/81 H 155/85 H Pulse Oximetry 94 95 94 Oxygen Delivery Room Air Room Air Oxygen Flow Rate 01/24/24 10:40 01/24/24 16:34 01/24/24 16:34 Temperature 98.3 F Pulse Rate 50 L Respiratory Rate 18 Blood Pressure 131/66 Pulse Oximetry 97 Oxygen Delivery Room Air Room Air Oxygen Flow Rate 01/24/24 18:15 01/25/24 00:56 01/25/24 04:38 Temperature 98.2 F 97.9 F 98.0 F Pulse Rate 48 L 49 L 47 L Respiratory Rate 18 16 18 Blood Pressure 178/70 H 115/52 L 98/47 L Pulse Oximetry 96 95 95 Oxygen Delivery Oxygen Flow Rate Intake/Output Intake/Output: Intake & Output 01/22/24 01/23/24 01/24/24 01/25/24 23:59 23:59 23:59 23:59 Intake Total 1350 Output Total 390 950 Balance 960 -950 Meds/Results Medications: Active Medications Generic Name Dose Route Start Last Admin Trade Name Freq PRN Reason Stop Dose Admin Acetaminophen 650 mg 01/24/24 10:17 Acetaminophen 325 Mg Tablet PO Q4H PRN Mild Pain (1-3) Or Fever Hydrocodone Bitart/Acetaminophen 1 tab 01/24/24 10:17 Hydrocodone/Acetaminophen (*Crx) 5-325 Mg Tablet PO Q3H PRN Pain Rated 5 or Less Hydrocodone Bitart/Acetaminophen 1 tab 01/24/24 10:17 01/24/24 20:56 Hydrocodone/Acetaminophen (*Crx) 10-325 Mg Tablet PO 1 tab Q3H PRN Administration Pain Rated 6 or Greater Allopurinol 100 mg 01/24/24 21:00 01/24/24 20:57 Allopurinol 100 Mg Tablet PO 100 mg Q12HR ANA Administration Amlodipine Besylate 5 mg 01/24/24 21:00 01/24/24 20:57 Amlodipine Besylate 5 Mg Tablet PO 5 mg Q12HR ANA Administration Apixaban 5 mg 01/24/24 17:00 01/24/24 17:47 Apixaban 5 Mg Tablet PO 5 mg BID ANA Administration Atorvastatin Calcium 20 mg 01/25/24 09:00 Atorvastatin 20 Mg Tablet BY MOUTH QAM ANA Clopidogrel Bisulfate 75 mg 01/24/24 17:00 01/24/24 17:47 Clopidogrel Bisulfate 75 Mg Tablet BY MOUTH 75 mg QAM ANA Administration Dextrose/Sodium Chloride 1,000 mls @ 125 mls/hr 01/24/24 10:17 01/25/24 04:41 Dextrose 5% Sodium Chloride 0.45% IV CONT Not Given .Q8H ANA Ibuprofen 600 mg 01/24/24 10:17 01/24/24 13:29 Ibuprofen 600 Mg Tablet PO 600 mg Q6H PRN Administration Cramping Ketorolac Tromethamine 30 mg 01/24/24 10:17 01/24/24 20:56 Ketorolac 30 Mg/Ml Vial (*Bkc) IV PUSH 01/29/24 10:16 30 mg Q6H PRN Administration
--- NOTE | 2024-01-25 08:40 | WPDANESPN ---
Anes - Prog Note Post-Op Date/Time: 01/25/24 08:40 Cardiovascular status: normal Respiratory status: normal Airway patency: baseline Mental status: baseline Post-Op hydration status: normal Vital Signs: Last Vital Signs Temp 36.7 C 01/25/24 04:38 Pulse 47 L 01/25/24 04:38 Resp 18 01/25/24 04:38 BP 98/47 L 01/25/24 04:38 Pulse Ox 95 01/25/24 04:38 O2 Del Method Room Air 01/24/24 16:34 O2 Flow Rate 8 01/24/24 09:31 Pain Score (VAS): 3/10 I/O: Intake & Output 01/24/24 01/25/24 01/25/24 23:59 07:59 15:59 Intake Total 1100 Output Total 350 950 Balance 750 -950 Laboratory Tests 01/24/24 06:46 01/24/24 09:36 POC Capillary Glucose 109 H Post-procedural complaints: none Patient Feedback: Patient satisfied with anesthetic care.
== END 2024-01-25 09:48 | disposition home or self-care (01) ==
LOC: ANHSURGERY 06:05 → ANHOB2 10:20
PROVIDERS: Anesthesiology; PCP Family Medicine; Visit Provider Obstetrics & Gynecology
PROC: 0UT9FZZ Resection of Uterus, Via Natural or Artificial Opening With Percutaneous Endoscopic Assistance (ICD-10-PCS; CPT 58572; principal; 2024-01-24 07:30)
DX: N92.0 Excessive and frequent menstruation with regular cycle (principal); D39.10 Neoplasm of uncertain behavior of unspecified ovary; N80.03 Adenomyosis of the uterus; D25.1 Intramural leiomyoma of uterus; N80.00 Endometriosis of the uterus, unspecified; N80.103 Endometriosis of bilateral ovaries, unspecified depth; I10 Essential (primary) hypertension; E78.00 Pure hypercholesterolemia, unspecified; D64.9 Anemia, unspecified; F41.9 Anxiety disorder, unspecified; K21.9 Gastro-esophageal reflux disease without esophagitis; L88 Pyoderma gangrenosum; I73.00 Raynaud's syndrome without gangrene; F17.210 Nicotine dependence, cigarettes, uncomplicated; E66.9 Obesity, unspecified; Z68.35 Body mass index [BMI] 35.0-35.9, adult; Z79.02 Long term (current) use of antithrombotics/antiplatelets; Z79.01 Long term (current) use of anticoagulants; Z98.890 Other specified postprocedural states; Z85.6 Personal history of leukemia; Z86.718 Personal history of other venous thrombosis and embolism; Z80.0 Family history of malignant neoplasm of digestive organs; Z82.49 Family history of ischemic heart disease and other diseases of the circulatory system
CPT/HCPCS: 58572; 36415; 80053; 82948; 85610; 85730; 86850; 86900; 86901; 88307; 88342; 99199; A9270; J0690; J1100; J1170; J1885; J2250; J2405; J2704; J3010; J7030; J7120; Q9968

== ENCOUNTER 2024-05-21 16:41 | Emergency (ER) | payer MEDICARE, SELFPAY ==
[2024-05-21 16:41] VITALS: BP 181/95; PULSE 72; RESP 16; TEMP 36.3; O2SAT 98
--- NOTE | 2024-05-21 17:15 | ED.FEMALEGU ---
HPI - Female Genitourinary General Chief complaint: Urogenital-Female Stated complaint: possible UTI Time Seen by Provider: 05/21/24 16:48 History of Present Illness HPI Narrative: Pt presents with urinary frequency and smal voids today. Pt has a history of UTI's and getting septic from them so wanted to get evaluated early. Pt has some low abdominal and low back discomfort but no flank pain. Pt denies fever or vomiting. Pt has chronic kidney issues as well with a GFR that is monitored and steady. Related Data Home Medications Medication Instructions Recorded Confirmed apixaban 5 mg tablet (Eliquis) 5 mg PO BID 09/29/23 05/21/24 norethindrone acetate 5 mg tablet 5 mg PO BID 05/21/24 05/21/24 Allergies Allergy/AdvReac Type Severity Reaction Status Date / Time gentian jake Allergy Rash Verified 05/21/24 16:46 Tetracyclines AdvReac Other Verified 05/21/24 16:46 Review of Systems Review of Systems: All systems reviewed & are unremarkable except as noted in HPI and below PMFSH Past Medical History Medical History (Updated 05/21/24 @ 18:27 by Rohan Stokes III, DO) Adenomyosis of the uterus Cholelithiasis CLL (chronic lymphocytic leukemia) DVT (deep venous thrombosis) RLE - resolved as on 09/29/23 Dysuria JOANN (generalized anxiety disorder) GERD (gastroesophageal reflux disease) Gout History of arterial occlusion History of blood transfusion Hypertension Nicotine dependence, cigarettes, uncomplicated Obesity Post-op pain Pyoderma gangrenosa Raynauds syndrome (06/05/18) Superficial granulomatous pyoderma UTI (urinary tract infection) UTI (urinary tract infection) Vaginal bleeding Vasculitis Surgical History Surgical History (Updated 05/02/24 @ 12:24 by Neisha Newton MA) History of adenoidectomy History of laparoscopic cholecystectomy 10/01/23 SAW Hx of tonsillectomy S/P laparoscopic cholecystectomy Family History Family History Father CHF (congestive heart failure) Grandparent Colon cancer Sibling Pancreatic cancer Sibling Pancreatic cancer Other Cerebrovascular accident Heart disease Hypertension Kidney disease Social History Social History Smoking packs per day: 0.5 Smoking cigarettes per day: 10.0 Years smoked: 38 Smoking pack-years: 19.00 Smoking status: Current every day smoker Tobacco type: cigarettes Second hand tobacco smoke exposure: Yes Alcohol intake: never Substance use: never Substance use type: does not use Other substance usage details: IN HER 20'S Do You Feel Safe in your Home?: Yes Lack of Transportation: No Lack of Food: Never True Current Housing: I Have Housing Concerned About Future Housing: No Difficulty Paying Gas/Electric Bills: No Difficulty Paying for Meds: No Currently Unemployed: No Education: Associate Degree Difficulty w/ Childcare or Family Care: No Living arrangements: with family Additional living arrangements comments: DAUGHTER Occupation/Education: occupation Additional occupation/education comments: [employer] Spiritual care concerns: No Exam Const: General: healthy appearing and no acute distress Nutritional Appearance: well nourished Orientation/consciousness: patient oriented x3 Limitations: no limitations Resp: Effort & Inspection: normal respiratory effort Auscultation: clear to auscultation bilaterally Cardio: Rate: regular rate Rhythm: regular rhythm GI: GI Palp: Yes Soft to palpation and Yes Tenderness to palpation present (GI) (suprapubic mild) Auscultation: normal bowel sounds : General: Yes Bladder palpation abnormal tender and Yes no CVA tenderness Back/Spine/Pelvis: Back: no CVA tenderness Skin: General skin exam: normal color Rashes: no rashes Wounds: no wounds Neuro: General: patient oriented x3, moves all extr
[2024-05-21 17:47] LABS: Basophils Absolute Auto 0.09 K/mm3 (0.00-0.10); Basophils Percent Auto 0.7 % (0.0-1.0); Eosinophils Absolute Auto 0.16 K/mm3 (0.02-0.50); Eosinophils Percent Auto 1.3 % (1.0-6.0); Hemoglobin 11.8 g/dL (12.0-15.0); Immature Granulocyte Absolute 0.04 K/mm3 (0.00-0.00); Immature Granulocyte Percent A 0.3 % (0.0-0.0); Lymphocytes Absolute Auto 4.15 K/mm3 (1.10-4.50); Lymphocytes Percent Auto 33.3 % (18.0-42.0); Mean Corpuscular HGB Conc 30.3 g/dL (32-36); Mean Corpuscular Hemoglobin 23.8 pg (27.0-31.0); Mean Corpuscular Volume 78.6 fL (78.0-102.0); Monocytes Absolute Auto 0.84 K/mm3 (0.10-0.90); Monocytes Percent Auto 6.7 % (2.0-11.0); Neutrophils Absolute Auto 7.18 K/mm3 (1.70-7.20); Neutrophils Percent Auto 57.7 % (50.0-70.0); Platelet Count Result 376 K/mm3 (150-420); Red Blood Count 4.96 M/mm3 (4.20-5.40); Red Cell Distribution Width 21.2 % (11.6-14.4); White Blood Count 12.5 K/mm3 (4.8-10.8)
[2024-05-21 18:00] VITALS: BP 147/83; PULSE 60; RESP 16; O2SAT 97
[2024-05-21 18:06] LABS: Add Urine Microscopic? YES; Appearance Urine Clear (Clear); Bilirubin Urine Negative (Negative); Blood Urine 1+ (Negative); Color Urine Light Yellow (Yellow); Glucose Urine UA Negative (Negative); Ketones Urine Negative (Negative); Leukocyte Esterase Ur Trace LEU/UL (Negative); Nitrate Urine Negative (Negative); Protein Urine 3+ (Negative); Specific Grav Ur 1.025 (1.010-1.020); Urobilinogen Urine 0.2 mg/dL (0.2-1.0); pH Urine 7.5 (5.0-8.0)
[2024-05-21 18:08] LABS: Lactic Acid Reflex 1.2 mmol/L (0.4-2.0)
[2024-05-21 18:14] LABS: Alanine Aminotransferase 16 U/L (14-59); Albumin Level 3.1 g/dL (3.4-5.0); Alkaline Phosphatase 101 U/L (46-116); Anion Gap 10 mmol/L (4-12); Aspartate Amino Transferase 14 U/L (15-37); Bilirubin,Total 0.2 mg/dL (0.00-1.00); Blood Urea Nitrogen 29 mg/dL (7-18); Calcium 9.1 mg/dL (8.5-10.1); Carbon Dioxide 24 mmol/L (21-32); Chloride 105 mmol/L (98-108); Estimated CRCL calculation 49 ml/min; Estimated Glomerular Filt Rate 38; Glucose 94 mg/dL (70-99); Osmolality Calculated 293 mOsm/kg (285-295); Potassium 3.5 mmol/L (3.5-5.1); Sodium 139 mmol/L (136-145); Total Protein 7.2 g/dL (6.4-8.2)
[2024-05-21 18:18] LABS: RBC Urine None seen /hpf (0-2); Squamous Epithelial Cell Urine Few /hpf (Few)
[2024-05-21 18:19] LABS: Bacteria Urine Trace /hpf
[2024-05-21 18:32] VITALS: BP 150/83; PULSE 57; RESP 17; TEMP 36.3; O2SAT 97
--- NOTE | 2024-05-24 12:39 | PC.NURSE ---
FINAL URINE CULTURE RESULTS: NO GROWTH
--- NOTE | 2024-05-28 12:21 | PC.NURSE ---
final blood culture results x2: no growth after 5 days.
--- NOTE | 2024-06-02 18:12 | PC.NURSE ---
final blood cultures x2 reviewed. no growth after 5 days. no change in plan of care.
== END 2024-05-21 18:32 | disposition home or self-care (01) ==
PROVIDERS: Emergency Provider Emergency Medicine; PCP Emergency Medicine
DX: N39.0 Urinary tract infection, site not specified (principal); N28.9 Disorder of kidney and ureter, unspecified; I10 Essential (primary) hypertension; Z85.6 Personal history of leukemia; Z86.718 Personal history of other venous thrombosis and embolism; F17.210 Nicotine dependence, cigarettes, uncomplicated
CPT/HCPCS: 36415; 80053; 81001; 83605; 85025; 87040; 87086; 99283

== ENCOUNTER 2024-08-06 13:14 | Outpatient (NON) | payer MEDICARE, SELFPAY ==
[2024-08-06 14:20] LABS: Basophils Absolute Auto 0.1 K/mm3 (0.0-0.1); Basophils Percent Auto 0.6 % (0.2-1.2); Eosinophils Absolute Auto 0.2 K/mm3 (0-0.3); Eosinophils Percent Auto 1.5 % (0-4.4); Hematocrit 29.7 % (37.0-47.0); Hemoglobin 8.9 g/dL (12.0-15.0); Immature Granulocyte Absolute 0.06 K/mm3 (0.00-0.031); Immature Granulocyte Percent A 0.4 % (0-0.5); Lymphocytes Percent Auto 23.1 % (18.3-44.2); Mean Corpuscular Hemoglobin 25.6 pg (26-34); Mean Corpuscular Volume 85.6 fl (80-100); Mean Platelet Volume 10.3 fl (7.4-10.4); Monocytes Absolute Auto 0.9 K/mm3 (0.1-0.6); Monocytes Percent Auto 5.8 % (2.6-8.5); Neutrophils Absolute Auto 10.7 K/mm3 (1.3-6.7); Neutrophils Percent Auto 68.6 % (45.5-73.1); Platelet Count Result 494 k/mm3 (150-375); Red Blood Count 3.47 M/mm3 (4.2-5.4); Red Cell Distribution Width 18.2 % (11.5-14.5); White Blood Count 15.6 K/mm3 (4.5-10.0)
[2024-08-06 14:33] LABS: Alanine Aminotransferase 13 U/L (6-35); Albumin Level 3.9 g/dL (3.5-5.1); Alkaline Phosphatase 94 U/L (38-126); Anion Gap 9 mmol/L (4-12); Aspartate Amino Transferase 20 U/L (14-36); Bilirubin,Total 0.2 mg/dL (0.2-1.3); Blood Urea Nitrogen 19 mg/dL (7-17); Calcium 8.8 mg/dL (8.4-10.2); Carbon Dioxide 34 mmol/L (22-30); Chloride 97 mmol/L (98-107); Estimated Glomerular Filt Rate 43; Glucose 66 mg/dL (65-110); Potassium 3.8 mmol/L (3.4-5.0); Sodium 140 mmol/L (137-145)
== END 2024-08-06 13:15 | disposition home or self-care (01) ==
PROVIDERS: PCP Emergency Medicine; Visit Provider Emergency Medicine
DX: S71.101D Unspecified open wound, right thigh, subsequent encounter (principal); S81.801D Unspecified open wound, right lower leg, subsequent encounter; I73.9 Peripheral vascular disease, unspecified; I12.9 Hypertensive chronic kidney disease with stage 1 through stage 4 chronic kidney disease, or unspecified chronic kidney disease; N18.9 Chronic kidney disease, unspecified; X58.XXXD Exposure to other specified factors, subsequent encounter
CPT/HCPCS: 80053; 85025

== ENCOUNTER 2024-09-12 17:53 | Emergency (ER) | payer MEDICARE, SELFPAY ==
[2024-09-12 17:57] VITALS: BP 165/104; PULSE 118; RESP 18; TEMP 36.4; O2SAT 99
--- NOTE | 2024-09-12 18:28 | ED_ITS ---
HPI - Skin/Abscess/Foreign Bdy General Chief complaint: Skin/Abscess/Foreign Body Stated complaint: face swelling, fever Source: patient Mode of arrival: ambulatory Limitations: no limitations History of Present Illness HPI narrative: this is a 54-year-old female with a crusty external ear canals that presents with some redness and warmth and tenderness bilateral facial area that is warm to touch and has felt chilly and with low-grade fevers. Was seen at wound care and recommend the patient be seen in the emergency department. Otherwise no chest pain no shortness of breath no abdominal pain no nausea vomiting. complaint: rash and abscess/boil Onset (ago): day(s) Location: face Severity: mild Related Data Home Medications Medication Instructions Recorded Confirmed apixaban 5 mg tablet (Eliquis) 5 mg PO BID 09/29/23 08/20/24 aspirin 81 mg tablet,delayed 81 mg PO DAILY 08/20/24 08/20/24 release doxycycline monohydrate 100 mg 100 mg PO BID 08/20/24 08/20/24 tablet Allergies Allergy/AdvReac Type Severity Reaction Status Date / Time gentian jake Allergy Rash Verified 08/20/24 15:47 Review of Systems Review of Systems: All systems reviewed & are unremarkable except as noted in HPI and below PMFSH Past Medical History Medical History Adenomyosis of the uterus Cholelithiasis CLL (chronic lymphocytic leukemia) DVT (deep venous thrombosis) RLE - resolved as on 09/29/23 Dysuria JOANN (generalized anxiety disorder) GERD (gastroesophageal reflux disease) Gout History of arterial occlusion History of blood transfusion Hypertension Nicotine dependence, cigarettes, uncomplicated Obesity Post-op pain Pyoderma gangrenosa Raynauds syndrome (06/05/18) Superficial granulomatous pyoderma UTI (urinary tract infection) UTI (urinary tract infection) Vaginal bleeding Vasculitis Surgical History Surgical History History of adenoidectomy History of laparoscopic cholecystectomy 10/01/23 SAW Hx of tonsillectomy S/P laparoscopic cholecystectomy Family History Family History Father CHF (congestive heart failure) Grandparent Colon cancer Sibling Pancreatic cancer Sibling Pancreatic cancer Other Cerebrovascular accident Heart disease Hypertension Kidney disease Social History Social History Smoking packs per day: 0.5 Smoking cigarettes per day: 10.0 Years smoked: 38 Smoking pack-years: 19.00 Smoking status: Current every day smoker Tobacco type: cigarettes Second hand tobacco smoke exposure: Yes Alcohol intake: never Substance use: never Substance use type: does not use Other substance usage details: IN HER 20'S Do You Feel Safe in your Home?: Yes Lack of Transportation: No Lack of Food: Never True Current Housing: I Have Housing Concerned About Future Housing: No Difficulty Paying Gas/Electric Bills: No Difficulty Paying for Meds: No Currently Unemployed: No Education: Associate Degree Difficulty w/ Childcare or Family Care: No Living arrangements: with family Additional living arrangements comments: DAUGHTER Occupation/Education: occupation Additional occupation/education comments: [employer] Spiritual care concerns: No Exam Const: General: healthy appearing and no acute distress Nutritional Appearance: well nourished Orientation/consciousness: patient oriented x3 Limitations: no limitations HENMT: Head: normal to inspection Eyes: Conjunctivae: conjunctivae normal Pupils: Equal, round and reactive pupils present Neck: Neck: normal visual inspection, no lymphadenopathy and no meningeal signs Chest: Chest palpation & inspection: normal inspection of the chest Resp: Effort & Inspection: normal respiratory effort Auscultation: clear to auscultation bilaterally Cardio: Rate: regular rate Rhythm: regular rhythm GI: GI Palp: Yes Soft to palpation Auscultation: normal bowel sounds Skin: Wounds: wounds noted Other: Bilateral erythema warmth and tenderness bilateral facial cheeks with no extension into the eyes are conjunctiva. Course Course Emergency Course: Patient received a L of IV fluids and a dose of 1g IV ceftriaxone. Patient advised to take antibiotics as prescribed and follow with her primary within the next 4 to 5 days. Vital Signs Vital signs: Vital Signs Temperature 36.4 C L 09/12/24 17:57 Pulse Rate 118 H 09/12/24 17:57 Respiratory Rate 18 09/12/24 17:57 Blood Pressure 165/104 H 09/12/24 17:57 Pulse Oximetry 99 09/12/24 17:57 Oxygen Delivery Room Air 09/12/24 17:57 Temperature 36.4 C L 09/12/24 17:57 Pulse Rate 118 H 09/12/24 17:57 Respiratory Rate 18 12/05/24 17:57 Blood Pressure 165/104 H 09/12/24 17:57 Pulse Oximetry 99 09/12/24 17:57 Oxygen Delivery Room Air 09/12/24 17:57 Critical Care Time Critical Care Time Critical Care Time: No Discharge Plan Discharge Clinical Impression: Cellulitis and abscess of face Patient Disposition: Home, Self-Care Condition: Stable Instructions: Antibiotic Form, Cellulitis (ED) Additional Instructions: advised patient to take medication as prescribed and to follow up with primary within the next 4 to 5 days for further evaluation and treatment. Prescriptions: New amoxicillin-pot clavulanate [Augmentin] 500-125 mg tablet 1 tablet PO TID Qty: 30 0RF No Action temazepam 15 mg capsule 15 mg PO QHS PRN (Reason: sleep) Qty: 30 2RF atorvastatin 20 mg tablet See Rx Instructions .ROUTE .COMPLEX Qty: 90 2RF Hold Instructions: Resume on 08/01/23. Dose Instruction: TAKE ONE TABLET (20mg) BY MOUTH DAILY Rx Instructions: TAKE ONE TABLET (20mg) BY MOUTH DAILY fluticasone propionate [Flonase Allergy Relief] 50 mcg/actuation spray,suspension 1 spray intranasal BID Qty: 48 2RF Rx Instructions: administer into each nostril aspirin 81 mg tablet,delayed release (DR/EC) 81 mg PO DAILY doxycycline monohydrate 100 mg tablet 100 mg PO BID alprazolam [Xanax] 0.5 mg tablet 0.5 mg PO BID PRN (Reason: anxiety) Qty: 30 0RF metoprolol succinate 50 mg tablet extended release 24 hr 50 mg PO DAILY Qty: 90 2RF Eliquis 5 mg tablet 5 mg PO BID ondansetron 4 mg tablet,disintegrating See Rx Instructions .ROUTE .COMPLEX Qty: 20 0RF Dose Instruction: DISSOLVE ONE TABLET ON THE TONGUE EVERY EIGHT HOURS NEEDED FOR NAUSEA AND VOMITING FOR FIVE DAYS Rx Instructions: DISSOLVE ONE TABLET ON THE TONGUE EVERY EIGHT HOURS NEEDED FOR NAUSEA AND VOMITING FOR FIVE DAYS varenicline [Chantix Starting Month Box] 0.5 mg (11)- 1 mg (42) tablets,dose pack See Rx Instructions PO PER PKG DIR Qty: 53 0RF Rx Instructions: PO PER PKG DIR allopurinol 100 mg tablet See Rx Instructions .ROUTE .COMPLEX Qty: 180 11RF Dose Instruction: TAKE ONE TABLET (100 MG) BY MOUTH TWICE DAILY Rx Instructions: TAKE ONE TABLET (100 MG) BY MOUTH TWICE DAILY Follow-up/Referrals: UNKNOWN,DOCTOR [Primary Care Provider] -
[2024-09-12] MEDS: SODIUM CHLORIDE 0.9% IV 1,000 ML 999 ML IV CONT (18:36)
--- NOTE | 2024-09-12 18:54 | PC.NURSE ---
ASSUMED CARE. REPORT RECEIVED FROM MUNA LDAD
--- NOTE | 2024-09-12 18:55 | PC.NURSE ---
Report given to WILBERTO Kline
[2024-09-12 19:51] VITALS: BP 169/89; PULSE 87; RESP 18; O2SAT 98
== END 2024-09-12 19:51 | disposition home or self-care (01) ==
LOC: CHSED 18:33
PROVIDERS: Emergency Provider Emergency Medicine; PCP Emergency Medicine
DX: L03.211 Cellulitis of face (principal); L02.01 Cutaneous abscess of face; I10 Essential (primary) hypertension; F41.1 Generalized anxiety disorder; M10.9 Gout, unspecified; C91.10 Chronic lymphocytic leukemia of B-cell type not having achieved remission; Z79.01 Long term (current) use of anticoagulants; Z79.82 Long term (current) use of aspirin; F17.210 Nicotine dependence, cigarettes, uncomplicated
CPT/HCPCS: 96361; 96365; 99284; J0696; J7030

== ENCOUNTER 2024-12-12 15:47 | Emergency (ER) | payer MEDICARE, SELFPAY ==
[2024-12-12 15:49] VITALS: BP 202/121; PULSE 85; RESP 18; TEMP 36.9; O2SAT 100
--- NOTE | 2024-12-12 16:00 | PC.NURSE ---
ERP is aware of initial blood pressure, States we are not addressing here, patient will go home and take medications as prescribed.
--- NOTE | 2024-12-12 16:00 | ED.EXTPRO ---
HPI - Extremity Problem General Chief complaint: Extremity Problem,Nontraumatic Stated complaint: numbness, swelling in left leg Time Seen by Provider: 12/12/24 15:51 Source: patient Mode of arrival: ambulatory Limitations: no limitations History of Present Illness HPI Narrative: this is a 54-year-old female with history of peripheral vascular disease recently saw for a vascular surgeon at [facility] and the patient presents to the emergency department after she called her vascular surgeon and was concerned that she had a knot in near the incision site of her right thigh area but calf is nontender there is no significant swelling no erythema no calf tenderness with palpation negative Susi sign. There is no shortness of breath no fever chills. Complaint: extremity swelling Onset (ago): day(s) Pain Consistency: intermittent Location: right Related Data Home Medications ?Medication ?Instructions ?Recorded ?Confirmed ?Last Taken ?Type apixaban 5 mg tablet (Eliquis) 5 mg PO BID 09/29/23 11/29/24 12/25/23 History aspirin 81 mg tablet,delayed 81 mg PO DAILY 08/20/24 11/29/24 Unknown History release amlodipine 10 mg tablet (Norvasc) 10 mg PO DAILY 11/29/24 11/29/24 Unknown History lisinopril 10 mg tablet 10 mg PO DAILY 11/29/24 Unknown History silver sulfadiazine 1 % topical 1 applic topical BID 11/29/24 Unknown History cream (Silvadene) Allergies Allergy/AdvReac Type Severity Reaction Status Date / Time gentian jake Allergy Rash Verified 12/12/24 15:49 Review of Systems Review of Systems: All systems reviewed & are unremarkable except as noted in HPI and below PMFSH Past Medical History Medical History Cholelithiasis Adenomyosis of the uterus History of blood transfusion UTI (urinary tract infection) JOANN (generalized anxiety disorder) GERD (gastroesophageal reflux disease) Dysuria Post-op pain Vaginal bleeding Raynauds syndrome (06/05/18) UTI (urinary tract infection) Gout Pyoderma gangrenosa History of arterial occlusion Obesity Nicotine dependence, cigarettes, uncomplicated Superficial granulomatous pyoderma DVT (deep venous thrombosis) RLE - resolved as on 09/29/23 Hypertension Vasculitis CLL (chronic lymphocytic leukemia) Surgical History Surgical History H/O angioplasty History of laparoscopic cholecystectomy 10/01/23 SAW S/P laparoscopic cholecystectomy History of adenoidectomy Hx of tonsillectomy Family History Family History Father CHF (congestive heart failure) Grandparent Colon cancer Sibling Pancreatic cancer Sibling Pancreatic cancer Other Cerebrovascular accident Heart disease Hypertension Kidney disease Social History Social History Smoking packs per day: 0.5 Smoking cigarettes per day: 10.0 Years smoked: 38 Smoking pack-years: 19.00 Smoking status: Current every day smoker Tobacco type: cigarettes Second hand tobacco smoke exposure: Yes Alcohol intake: never Substance use: never Substance use type: does not use Other substance usage details: IN HER 20'S Do You Feel Safe in your Home?: Yes Lack of Transportation: No Lack of Food: Never True Current Housing: I Have Housing Concerned About Future Housing: No Difficulty Paying Gas/Electric Bills: No Difficulty Paying for Meds: No Currently Unemployed: No Education: Associate Degree Difficulty w/ Childcare or Family Care: No Living arrangements: with family Additional living arrangements comments: DAUGHTER Occupation/Education: occupation Additional occupation/education comments: [employer] Spiritual care concerns: No Exam Const: General: healthy appearing and no acute distress Nutritional Appearance: well nourished Orientation/consciousness: patient oriented x3 Limitations: no limitations Neck: Neck: normal visual inspection, no lymphadenopathy and no meningeal signs Chest: Chest palpation & inspection: normal inspection of the chest Resp: Effort & Inspection: normal respiratory effort Auscultation: clear to auscultation bilaterally Cardio: Rate: regular rate Rhythm: regular rhythm GI: GI Palp: Yes Soft to palpation Auscultation: normal bowel sounds Back/Spine/Pelvis: Back: no CVA tenderness Skin: Wounds: wounds noted Neuro: General: patient oriented x3 and moves all extremities Extrem: Other: Negative Homans sign on the right with no erythema no calf tenderness with palpation. Course Course Emergency Course: Patient concerned with some knot that is at the incision site of her right lower thigh but it is superficial and reassured patient that she does not have any significant swelling in the right lower extremity with no calf tenderness negative Homans sign and currently on Eliquis. Will order an outpatient CT with contrast of her right lower extremity along with venous Doppler ultrasound of the right lower extremity. Blood pressure elevated but patient did not take her medication yet and advised discharge and when she gets home to take her medicine. Vital Signs Vital signs: Vital Signs Temperature 36.9 C 12/12/24 15:49 Pulse Rate 85 12/12/24 15:49 Respiratory Rate 18 12/12/24 15:49 Blood Pressure 202/121 H 12/12/24 15:49 Pulse Oximetry 100 12/12/24 15:49 Oxygen Delivery Room Air 12/12/24 15:49 Temperature 36.9 C 12/12/24 15:49 Pulse Rate 85 12/12/24 15:49 Respiratory Rate 18 12/12/24 15:49 Blood Pressure 202/121 H 12/12/24 15:49 Pulse Oximetry 100 12/12/24 15:49 Oxygen Delivery Room Air 12/12/24 15:49 Critical Care Time Critical Care Time Critical Care Time: No Discharge Plan Discharge Clinical Impression: Peripheral vascular disease Patient Disposition: Home, Self-Care Condition: Stable Instructions: Antibiotic Form, Peripheral Vascular Disease (ED) Additional Instructions: advised follow-up with primary care physician and to perform outpatient scans as scheduled. Patient Language: Faroese Prescriptions: No Action atorvastatin 20 mg tablet See Rx Instructions .ROUTE .COMPLEX Qty: 90 2RF Dose Instruction: TAKE ONE TABLET (20mg) BY MOUTH DAILY Rx Instructions: TAKE ONE TABLET (20mg) BY MOUTH DAILY aspirin 81 mg tablet,delayed release (DR/EC) 81 mg PO DAILY alprazolam [Xanax] 0.5 mg tablet 0.5 mg PO BID PRN (Reason: anxiety) Qty: 30 0RF metoprolol succinate 50 mg tablet extended release 24 hr 50 mg PO DAILY Qty: 90 2RF silver sulfadiazine [Silvadene] 1 % cream 1 applic topical BID Rx Instructions: apply a 1.5 mm thickness lisinopril 10 mg tablet 10 mg PO DAILY amlodipine [Norvasc] 10 mg tablet 10 mg PO DAILY Eliquis 5 mg tablet 5 mg PO BID ondansetron 4 mg tablet,disintegrating See Rx Instructions .ROUTE .COMPLEX Qty: 20 0RF Dose Instruction: DISSOLVE ONE TABLET ON THE TONGUE EVERY EIGHT HOURS NEEDED FOR NAUSEA AND VOMITING FOR FIVE DAYS Rx Instructions: DISSOLVE ONE TABLET ON THE TONGUE EVERY EIGHT HOURS NEEDED FOR NAUSEA AND VOMITING FOR FIVE DAYS allopurinol 100 mg tablet See Rx Instructions .ROUTE .COMPLEX Qty: 180 11RF Dose Instruction: TAKE ONE TABLET (100 MG) BY MOUTH TWICE DAILY Rx Instructions: TAKE ONE TABLET (100 MG) BY MOUTH TWICE DAILY fluticasone propionate [Flonase Allergy Relief] 50 mcg/actuation spray,suspension 1 spray intranasal BID Qty: 48 2RF Rx Instructions: administer into each nostril zolpidem 10 mg tablet 10 mg PO QHS Qty: 30 0RF Follow-up/Referrals: Mor Blancas MD [Primary Care Provider] - Time of Disposition: 16:10
[2024-12-12 16:01] VITALS: BP 197/108
[2024-12-12 16:15] VITALS: BP 196/112; PULSE 82; RESP 17; TEMP 36.8; O2SAT 100
--- OUTSIDE RECORDS SUMMARY | 2024-12-12 16:47 | XMS_ITS | Encounter Summary ---
Author Organization [facility] Address [address] [place] [address] Phone Care Team Providers Care Manager Garden Name Role Phone Flynn Ma MD Unavailable [phone] Colleen Diaz MD Unavailable Derek Wilson MD Unavailable [phone] Mar Jay MD Unavailable [phone] Mitch Austin DO Unavailable [phone] Mor Blancas MD Primary Care Provide r Madelyn Vicente MD PhD Unavailable [phone] Eric Washington MD Unavailable [phone] Reason for Visit * Reason Onset Date Comments Medical Question/Miscellaneous 11/21/2024 Encounter Details Date Type Department Care Team (Late st Contact Info) Description 11/21/2024 Telephone [place] [facility] Minimally Invasive Surgery [address] [facility] [address]th Floor, [place] [address] Mor Jain MD PhD [address] [place] [address] Medical Question/Miscellaneous Social History Tobacco Use Types Packs/Day Years Used Date Smoking Tobacco: Former Cigarettes 1 37.5 1 987 - 04/08/2024 Passive Smoke Exposure: Past Smokeless Tobacco: Never Comments:cutting down 4-6 a day Alcohol Use Standard Drinks/Week Comments No 0 (1 standard drink = 0.6 oz pur e alcohol) [facility] Utilities Answer Date Recorded In the past 12 months has e electric, gas, oil, or water company threatened to shut off services in your home? No 07/24/2024 Social Connection and Isolat ion Panel [NHANES] Answer Date Recorded In a typical week, how many times do you talk on the phone with family, friends, or neighbors? More than three times a week 07/24/2024 How often do you get togethe r with friends or relatives? More than three times a week 07/24/2024 How often do you attend chur ch or denominational services? Never 07/24/2024 Do you belong to any clubs o r organizations such as episcopal groups, unions, fraternal or athletic groups, or school groups? No 07/24/2024 How often do you attend meet ings of the clubs or organizations you belong to? Never 07/24/2024 Are you , , di vorced, , never , or living with a partner? 07/24/2024 AUDIT-C Answer Date Recorded Q1: How often do you have a drink containing alcohol? Never 10/16/2024 Q2: How many drinks containi ng alcohol do you have on a typical day when you are drinking? Patient does not drink Q3: How often do you have si x or more drinks on one occasion? Never 10/16/2024 Overall Financial Resource Strain (CARDIA) Answe r Date Recorded How hard is it for you to pa y for the very basics like food, housing, medical care, and heating? Not very hard 07/24/2024 PHQ-2 Answer Date Recorded PHQ-2 Total Score 2 07/24/2024 Hunger Vital Sign Answer Date Recorded Within the past 12 months, y ou worried that your food would run out before you got the money to buy more. Never true 07/24/20 24 Within the past 12 months, t he food you bought just didn't last and you didn't have money to get more. Never true 07/24/2024 PRAPARE - Transportation Answer Date Re corded In the past 12 months, has l ack of transportation kept you from medical appointments or from getting medications? No 07/09 In the past 12 months, has l ack of transportation kept you from meetings, work, or from getting things needed for daily living? No 07/24/2024 Housing Stability Vital Sign Answer Jaskaran e Recorded In the last 12 months, was t here a time when you were not able to pay the mortgage or rent on time? No 07/24/2024 In the past 12 months, how m any times have you moved where you were living? 0 07/24/2024 At any time in the past 12 m [facility], were you homeless or living in a penitentiary (including now)? No 07/24/2024 Personal Safety Answer Date Recorded Have you ever been in or are you currently in a harmful physical or emotional relationship or is someone making you feel afraid or unsafe? Denies 10/16/2024 Comments No Sex and Gender Information Value Date Recorded Sex Assigned at Not on file 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 DOCUMENT REVIEW ATTORNEY Gender Identity Female 03/14/2022 6:19 PM CDT Sexual Orientation Not on file documented as of this encounter Miscellaneous Notes * Telephone Encounter - Willy Hebert - 11/21/2024 11:59 AM CST Patient Query: Was an attempt to transfer to the assigned clinical staff or backline? No Reason for call?: Patient calling to see if she can schedule the Dupplex Ultrasound procedure for her MALS (Read message back to caller and ask them if there is anything else they'd like to add to the message) Who is the caller: Nicole What is the best number for them to contact for a call back: [phone] MENT REVIEW ATTORNEY documented in this encounter Plan of Treatment Not on file documented as of this encounter Visit Diagnoses Not on filedocumented in this encounter Additional Health Concerns Infection Onset Date Last Indicated Resolved Time MDR gram neg/ESBL 07/23/2024 08/01/2024 documented as of this encounter Care Teams Manager Garden Relationship Specialty Start Date End Date Mor Blancas MD [address] [place] [address] PCP - General Emergency Medicine 03/25/24 Flynn Ma MD [address] [facility] [address] [place] [address] Medical Oncologist/Life Enrichment Director Medical Oncology 09/28/18 Colleen Diaz MD [address] [place] [address] Referring Physician Nephrology 03/24/22 Derek Wilson MD [address] [place] [address] Referring Physician Obstetrics and Gynecology 06/26/23 Mar Jay MD [address] [place] [address] Surgeon Vascular Surgery 08/24/23 Mitch Austin DO [address] [place] [address] Surgeon Surgery 09/26/23 Madelyn Vicente MD PhD [address] [facility] [address] [place] [address] Registered Nurse Vascular Surgery 07/05/24 Eric Washington MD [address] [place] [address] Consulting Physician Plastic Surgery 07/29/24 documented as of this encounter
--- OUTSIDE RECORDS SUMMARY | 2024-12-12 16:47 | XMS_ITS | Encounter Summary ---
Author Organization [facility] Address [address] [place] [address] Phone Care Team Providers Care Service Officer Name Role Phone Flynn Ma MD Unavailable [phone] Ari Elmore DO Primary Care Provider Colleen Diaz MD Unavailable Derek Wilson MD Unavailable [phone] Mar Jay MD Unavailable Mitch Austin DO Unavailable [phone] Mor Blancas MD Primary Care Provide r Madelyn Vicente MD PhD Unavailable [phone] Eric Washington MD Unavailable [phone] Encounter Details Date Type Department Care Team (Latest Contact Info) Description 04/01/2022 Orders Only [facility] Scanning, Provider Social History Tobacco Use Types Packs/Day Years Used Date Smoking Tobacco: Every Day Cigarettes 0.5 30 Smokeless Tobacco: Never Comments:cutting down 4-6 a day Alcohol Use Standard Drinks/Week Comments No 0 (1 standard drink = 0.6 oz pur e alcohol) Comments Unknown Sex and Gender Information Value Date Recorded Sex Assigned at Not on file 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 Gender Identity Female 03/14/2022 6:19 PM CDT Sexual Orientation Not on file documented as of this encounter Plan of Treatment Not on file documented as of this encounter Procedures Procedure Name Priority Date/Time Associated Diagnosis Comments SCAN - RADIOLOGY/IMAGING 04/01/2022 documented in this encounter Results * SCAN - RADIOLOGY/IMAGING (04/01/2022) Anatomical Region Laterality Modality Other us Provider Scanning Final Result documented in this encounter Visit Diagnoses Not on filedocumented in this encounter Additional Health Concerns Infection Onset Date Last Indicated Resolved Time MDR gram neg/ESBL 07/23/2024 08/01/2024 documented as of this encounter Care Teams Service Officer Relationship Specialty Start Date End Date Ari Elmore DO [address] [place] [address] PCP - General Family Medicine 12/16/20 03/24/24 Mor Blancas MD [address] [place] [address] PCP - General Emergency Medicine 03/25/24 Flynn Ma MD [address] [facility] [address] [place] [address] Medical Oncologist/Public Works Director Medical Oncology 09/28/18 Colleen Diaz MD [address] [place] [address] Referring Physician Nephrology 03/24/22 Derek Wilson MD [address] [place] [address] Referring Physician Obstetrics and Gynecology 06/26/23 Mar Jay MD [address] [place] [address] Surgeon Vascular Surgery 08/24/23 Mitch Austin DO [address] [address] Surgeon Surgery 09/26/23 Madelyn Vicente MD PhD [address] [facility] [address] [place] [address] Registered Nurse Vascular Surgery 07/05/24 Eric Washington MD [address] [place] [address] Consulting Physician Plastic Surgery 07/29/24 documented as of this encounter
--- OUTSIDE RECORDS SUMMARY | 2024-12-12 16:47 | XMS_ITS | Encounter Summary ---
Author Organization [facility] Address [address] [place] [address] Phone Care Team Providers Care Biodiesel Product Development Manager Name Role Phone Flynn Ma MD Unavailable [phone] Ari Elmore DO Primary Care Provider Colleen Diaz MD Unavailable Derek Wilson MD Unavailable [phone] Mar Jay MD Unavailable Mitch Austin DO Unavailable [phone] Mor Blancas MD Primary Care Provide r Madelyn Vicente MD PhD Unavailable [phone] Eric Washington MD Unavailable [phone] Encounter Details Date Type Department Care Team (Latest Contact Info) Description 05/10/2022 Orders Only [facility] Scanning, Provider [...] on file 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 Gender Identity Female 03/14/2022 6:19 PM CDT Sexual Orientation Not on file documented as of this encounter Plan of Treatment Not on file documented as of this encounter Procedures Procedure Name Priority Date/Time Associated Diagnosis Comments SCAN - RADIOLOGY/IMAGING 05/10/2022 documented in this encounter Results * SCAN - RADIOLOGY/IMAGING (05/10/2022) Anatomical Region Laterality Modality Other us Provider Scanning Final Result documented in this encounter Visit Diagnoses Not on filedocumented in this encounter Additional Health Concerns Infection Onset Date Last Indicated Resolved Time MDR gram neg/ESBL 07/23/2024 08/01/2024 documented as of this encounter Care Teams Biodiesel Product Development Manager Relationship Specialty Start Date End Date Ari Elmore DO [address] [place] [address] PCP - General Family Medicine 12/16/20 03/24/24 Mor Blancas MD [address] [place] [address] PCP - General Emergency Medicine 03/25/24 Flynn Ma MD [address] [facility] [address] [place] [address] Medical Oncologist/Embedded Software Engineer Medical Oncology 09/28/18 Colleen Diaz MD [address] [place] [address] Referring Physician Nephrology 03/24/22 Derek Wilson MD [address] [place] [address] Referring Physician Obstetrics and Gynecology 06/26/23 Mar Jay MD [address] [place] [address] Surgeon Vascular Surgery 08/24/23 Mitch Austin DO [address] [address] Surgeon Surgery 09/26/23 Madelyn Vicente MD PhD [address] [facility] [address] [place] [address] Registered Nurse Vascular Surgery 07/05/24 Eric Washington MD [address] [place] [address] Consulting Physician Plastic Surgery 07/29/24 documented as of this encounter
--- OUTSIDE RECORDS SUMMARY | 2024-12-12 16:48 | XMS_ITS | Clinical Summary ---
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 Gender Identity Not on file Sexual Orientation Not on file Last Filed Vital Signs Vital Sign Reading Time Taken Comments Blood Pressure 136/63 08/10/2018 9:12 PM CDT Pulse 60 08/10/2018 9:12 PM CDT Temperature 36.5 C (97.7 F) 08/10/2018 7:26 PM CDT Respiratory Rate 18 08/10/2018 9:12 PM CDT Oxygen Saturation 98% 08/10/2018 9:12 PM CDT Inhaled Oxygen Concentration - - Weight 127.3 kg (280 lb 10.3 oz) 08/10/2018 7:26 PM CDT Height 167.6 cm (5' 6 ) 08/10/2018 7:26 PM CDT Body Mass Index 45.3 08/10/2018 7:26 PM CDT Plan of Treatment Health Maintenance Due Date Last Done Comments Cervical Cancer Screening Pa p Smear (Age 30 to 64) Every 3 Years 1972 Colorectal Cancer Screening Colonoscopy (10 Years) 1972 Annual Physical 1975 Hepatitis C 1990 DTaP, Tdap and Td Vaccines ( 1 - Tdap) 1991 Hepatitis B Vaccines (1 of 3 - 19+ 3-dose series) 1991 Cervical Cancer Screening Pa p with HPV Testing (Age 30 to 64) Every 5 Years 2002 Cervical Cancer Screening with HPV 2002 Mammogram Screening 2012 Zoster Vaccines (1 of 2) 2022 COVID-19 Vaccine (2023-2 5 season) 2024 Influenza Adult (#1) 2024 Meningococcal B Vaccine Aged Out No l onger eligible based on patient's age to complete this topic Meningococcal Vaccine Aged Out No semaj john eligible based on patient's age to complete this topic Pneumococcal Vaccine: Pediat rics (0 to 5 Years) and At-Risk Patients (6 to 64 Years) Aged Out No longer eligible b ased on patient's age to complete this topic RSV Immunizations Under 20 Months Aged Out No longer eligible based on patient's age to complete this topic Care Teams Corporate Tax Preparer Relationship Specialty Start Date End Date Chester Banks MD PCP - General SURGERY 08/10/18
--- OUTSIDE RECORDS SUMMARY | 2024-12-12 16:48 | XMS_ITS ---
Author Organization [facility] Address [address] [place] [address] Care Team Providers Care Seam Rubber Name Role Phone Flynn Ma MD Unavailable [phone] Colleen Diaz MD Unavailable Derek Wilson MD Unavailable [phone] Mar Jay MD Unavailable Mitch Austin DO Unavailable [phone] Mor Blancas MD Primary Care Provide r Madelyn Vicente MD PhD Unavailable [phone] Eric Washington MD Unavailable [phone] Active Problems Problem Noted Date Diagnosed Date Iron deficiency anemia 10/29/2024 Encounter for surgical after care following surgery of circulatory system 08/29/2024 Infected surgical wound 07/26/2024 Assessment & Plan (08/09/2024 2:06 PM CDT): Patient is clinically doing well and wound is healing nicely. Due to repeat debridement, hematoma evacuation and washout performed on 08/01/24, however, will extend duration of IV Ertapenem additional week (07/26/24 - tentative stop date 08/14/24). Patient will send pictures of wound with next wound vac exchange this week. I will call patient on 08/14/24 to confirm plan on antibiotic duration pending post-op eval 08/13/24 with Vascular. Assessment & Plan (08/01/2024 7:53 AM CDT): - OR cultures growing ESBL klebsiella - ID following: No PO options. Switched to ertapenem 1g q day 07/25- with ID follow up for discontinuation. HH arranged for home IV abx. PCP will need to follow for abx and lab monitoring. - Yokasta placed - Derm consulted per patient request to evaluate for pyoderma gangrenosum (hx of PG to prior calf surgical site). No findings concerning for pyoderma gangrenosum. Will reevalute again after she has had washout. 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 Previous CT showed chronic occlusion of the celiac artery with reconstitution via collateral flow from superior mesenteric artery branches. GI was consulted during admission. EGD showed patchy mucosal changes characterized by discoloration, erosion, and friability (with spontaneous bleeding) c/f gastric ischemia. Biopsies were negative. She was started on BID PPI. Plan was for repeat EGD in 203 months -cont PPI -no NSAIDs -follow up abdominal exam after able to eat again Non-healing wound of right lower extremity 07/15 Assessment & Plan (07/18/2024 12:17 PM CDT): s/p right lower extremity femoral to popliteal artery bypass using in situ vein. Patient reported significant RLE edema and a lot of bloody drainage from R thigh incision. She endorsed pain and drainage especially during ambulation. Said she was having no issues from groin incision but during clinic follow up noticed breakdown with fibrinous tissue present. -started cefazolin on admission -OR on 07/16 for wound debridement. Incisions closed. Covered with prevenas. Plan to remove on POD 5 -OR cultures growing staph aureus -Consult ID -Start Vanc/ flagyl per ID -normalize today/ OOB/ ambulate -DC zhang - Plan for discharge home with home health once antibiotic plan is finalized CKD (chronic kidney disease) stage 3, GFR 30-59 ml/min 07/04/2024 Assessment & Plan (07/18/2024 12:17 PM CDT): Chronic kidney disease with cr ~1.2-1.3. -daily BMP - encourage fluids Assessment & Plan (07/04/2024 8:37 AM CDT): Cr baseline appears 1-1.25. -Cr at baseline. -Monitor BMP -Avoid nephrotoxins Renal lesion 07/04/2024 Assessment & Plan (07/04/2024 8:44 AM CDT): CT 07/03 showed possible 12 mm enhancing right renal lesion in the lower pole. If clinically indicated, MRI may be considered for further evaluation. -Can follow up outpt Abdominal pain 07/02/2024 Assessment & Plan (10/16/2024 2:41 PM COMMUNITY SUPPORT WORKER): Has chronic abdominal pain due to likely celiac artery compression. - Diet as tolerated. Assessment & Plan (07/04/2024 8:28 AM CDT): Patient reports on and off again abdominal pain, N/V associated with food intake. Has really only been able to eat a few bits of toast as of recently. CT scan reviewed by Dr. Vicente and SMA is open, requests GI consult for evaluation. - GI recommended EGD, performed 07/03 and showed c/f ischemia, biopsy taken. Follow up path - Start protonix BID - Diet as tolerated - 07/03: CTA abd and pelvis triple phase for eval of mesenteric ischemia. 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 No significant change in CT appearance of the stomach, there is diffuse wall thickening though this may in part be due to lack of gastric distention. Mucosal hyperenhancement diffusely is noted. No pneumatosis or portal venous gas. The stomach is supplied by small arterial branches of the left inferior phrenic artery, and small collaterals from the superior mesenteric artery. 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 - Possible OR for revasc this admission. OR plan pending DVT (deep venous thrombosis) 07/01/2024 Assessment & Plan (10/16/2024 2:42 PM COMMUNITY SUPPORT WORKER): Hx RLE arterial occlusion/DVT 07/2023; h/o splenic infarcts; Pt reports 4-5 blood clots in past . On Eliquis 5mg BID at home. Assessment & Plan (08/02/2024 1:53 PM CDT): Hx RLE arterial occlusion/DVT 07/2023; h/o splenic infarcts; Pt reports 4-5 blood clots in past . On Eliquis 5mg BID at home. - holding Eliquis - heparin drip resumed following OR, continue Assessment & Plan (07/16/2024 7:33 AM CDT): Hx RLE arterial occlusion/DVT 07/2023; h/o splenic infarcts; Pt reports 4-5 blood clots in past . On Eliquis 5mg BID at home. -hold eliquis, started heparin gtt Assessment & Plan (07/04/2024 8:30 AM CDT): RLE arterial occlusion/DVT 07/2023; h/o splenic infarcts; Pt reports 4-5 blood clots in past . On Eliquis 5mg BID at home. -Holding home Eliquis -Continue heparin gtt. PTT subtherapeutic. Boluses added back PAD (peripheral artery disease) 07/01/2024 Assessment & Plan (10/16/2024 2:40 PM COMMUNITY SUPPORT WORKER): Patient with previous right lower extremity bypass with KAROLYN showing decrease to 0.55 and CTA showed severe stenosis distally. - OR 10/16 for - Bedrest overnight, then activity as tolerated. - Pain control. - NV monitoring. - F/u when to restart home Eliquis. Plavix. Arterial occlusion 07/01/2024 Acute lower limb ischemia 08/07/2023 Assessment & Plan (08/05/2024 2:50 AM CDT): S/p RLE fem-pop bypass 07/01/24 c/b breakdown of right thigh distal incision. On 07/16 she underwent drainage of a thigh hematoma as well as right groin superficial debridement. OR cx grew MSSA and mixed micro. She was discharged on Augmentin on 07/19. She represented to ED with complaints of RLE numbness with absent signals in RLL. - CTA showed occluded RLE bypass, some distal reconstitution of popliteal via collaterals, right distal thigh fluid collection present. - started broad spectrum abx and heparin drip - 07/22: emergent OR s/p thrombectomy of R HOSE TENDER, bypass graft, below knee popliteal. R groin flap by (PRS). Right groin with foul-smelling discharge and fibrinous material, same at distal thigh incision. See surgical wound infection for other plans - therapeutic heparin gtt - POPM - Q4 NV/VS - continue asa/statin - OR 08/01 for debridement and decompression of hematoma from right medial thigh wound. Vein bypass covered by sartorius muscle and wound vac applied (PRS) - Activity OOB, reclined when sitting [ ] Dressing: - R groin; alternating beatriz/prolene mattress. Prevena - removed. - R lateral thigh PRS: Prolene sutures. Daily vaseline, PLASMA PROCESSING TECHNICIAN. Wound vac to thigh replaced Assessment & Plan (08/07/2023 9:32 PM CDT): Presents with acute RLE ischemia. Sensorimotor intact. R AT/PT mono. CTA AIF with SFA occlusion bilaterally (chronic), one-vessel runoff at the level of the right ankle with a patent right posterior tibial artery, one-vessel runoff at the level of the left ankle with a patent left posterior tibial artery. - Admit to OU - Q2H NVCs - Heparin gtt - TTE - assess for afib, r/o PFO Abnormal uterine bleeding 08/07/2023 Assessment & Plan (08/07/2023 11:00 PM CDT): Hx of AUB beginning 2022. Required transfusion x1 in December 2022 for Hgb 6.0. Underwent ablation 06/26/2023. Held Plavix/Eliquis due to bleeding. - Kitchen Food Server consult on 08/08 - Hold home medication norethindrone 5 mg daily, restart when able. Hypercoagulable state 08/07/2023 Assessment & Plan (08/07/2023 9:31 PM CDT): Prior documentation of possible hypercoagulable disease. Patient was treated with aspirin, Plavix, and Eliquis. Hx of right fem DVT in January 2022. - Hematology consult on 08/08 - Heparin gtt Hypertension 08/07/2023 Assessment & Plan (07/26/2024 6:38 AM CDT): Has previously been on amlodipine, metop and lisinopril. At recent discharge, she was instructed to resume lisinopril 40 once SBP >130. - hold lisinopril for now. Can resume if BP becomes elevated - Q4 VS Assessment & Plan (07/17/2024 7:55 AM CDT): Chronic, takes amlodipine 10mg daily, lisinopril 40mg, metop XL 25mg. However, all medications were held after recent discharge 2/2 softer pressures. Plan was to follow up with PCP to restart. Does not appear she follow with her PCP -cont metop and lisinopril -hold amlodipine for now for normotension Assessment & Plan (07/04/2024 8:49 AM CDT): Chronic, takes amlodipine 10mg daily, lisinopril 40mg, metop XL 25mg -Goal normotension. -Held metoprolol 07/02 for HR 38-40's this AM. Baseline HR 40's. -HR 60's 07/03, restarted at 12.5 BID, consolidate if tolerates. -Amlodipine and lisinopril restarted as well -BP stable Assessment & Plan (08/07/2023 10:53 PM CDT): Takes metoprolol and lisinopril. - Hold home medications, restart when able. PVD (peripheral vascular disease) 08/07/2023 Assessment & Plan (07/16/2024 3:55 PM CDT): Patient is now s/p right lower extremity femoral to above knee popliteal artery bypass with ipsilateral greater saphenous vein in an in situ fashion. Right femoral artery endarterectomy and patch angioplasty on 07/01 -Q4 NV checks -cont ASA, statin -hold eliquis, cont hep gtt for now Assessment & Plan (07/04/2024 8:35 AM CDT): Patient with chronic RLE pain. Recent CTA demonstrated occluded celiac artery and bilateral SFA with reconstitution of the popliteal arteries. -OR on 07/01 for Right lower extremity femoral to above knee popliteal artery bypass with ipsilateral greater saphenous vein in an in situ fashion. Right femoral artery endarterectomy and patch angioplasty. -Activity as tolerated. -Pain control -Holding home Plavix, appears to be started by vascular surgeon in 2020 and then continued for unclear clotting disorder (DVTs, PAD). Holding eliquis -Restart home aspirin 81 mg daily. Plan for asa and Eliquis at discharge. -Heparin gtt for now, subtherapeutic PTTs. Add boluses -Q4NV checks. -Prevena management. - Blister to distal thigh incision. Blister opened at bedside this AM. Bloody drainage. No active bleeding. Covered with dry dressing. Acute gout 10/05/2022 Assessment & Plan (07/16/2024 7:40 AM CDT): Hx of gout -cont home allopurinol -hold if creatinine worsens Chronic lymphoid leukemia, w ithout mention of having achieved remission(204.10) 09/26/2018 Assessment & Plan (07/16/2024 7:36 AM CDT): Diagnosed in 2016. S/p chemo, now in remission -cont OP monitoring Assessment & Plan (07/04/2024 8:29 AM CDT): Diagnosed in 2016. S/p chemo, now in remission -F/U outpatient Assessment & Plan (08/07/2023 9:22 PM CDT): Diagnosed in 2016, in remission April 2023. Follows with [facility]. Current Treatment and Therapy Plans No current plan information found. Other Current Plans Ferumoxytol (FERAHEME) Infusion* Plan Start Date:11/04/2024 Plan Provider:Flynn Ma MD Linked Problems Iron deficiency anemia, unsp ecified iron deficiency anemia type Treatment Medications No medications scheduled. Past Treatment and Therapy Plans Oncology Chemotherapy Treatment Plan Name Start Date Discontinue Date Treatment Medications Discontinue Reason Plan Provider Cycles oBINutuzumab / Venetoclax - CLL 2 06/14/2023 oBINUtuzumab (GAVYZA)oBINutuz umab (GAZYVA) IVPB 1,000 mg in 290 mLoBINutuzumab (GAZYVA) IVPB 100 mg in 100 mLoBINutuzumab (GAZYVA) IVPB 900 mg in 250 mLvenetoclax (VENCLEXTA) Therapy Complete Flynn Ma MD 9 of 12 cycles started Oncology Supportive Care Plan Name Start Date Discontinue Date Treatment Medications Discontinue Reason Plan Provider Hydration Therapy Plan 06/27/2022 06/14/2023 No medications scheduled. Therapy Complete Flynn Ma MD Lifetime Dose Tracking * Chemical Lifetime Dose Automatic Entry Manual Entr y Fluoro Time 8.36 minutes 8.36 minutes 0 minutes Air kerma at the reference point (Ka,r) 125.72 mGy 1 25.72 mGy 0 mGy DLP 15,859 mGycm 15,859 mGycm 0 mGycm Resolved Problems Problem Noted Date Diagnosed Date Resolved Date Urinary tract infection 08/07/2023 06/0 12/2023 Overview (08/07/2023): Recently hospitalized at [place] for pyelonephritis. Discharged on Keflex (08/01-08/10). - Continue cephalexin 500 mg BID. Assessment & Plan (08/07/2023 10:53 PM CDT): Recently hospitalized at [place] for pyelonephritis. Discharged on Keflex (08/01-08/10). - Continue cephalexin 500 mg BID. Flu vaccine need 09/07/2022 08/07/2023 Dehydration 06/27/2022 08/07/2023 Immunocompromised 05/18/2022 08/07/2023
--- OUTSIDE RECORDS SUMMARY | 2024-12-12 16:48 | XMS_ITS | Encounter Summary ---
Author Organization [facility] Address [address] [place] [address] Phone Care Team Providers Care Manager Small Business Name Role Phone Flynn Ma MD Unavailable [phone] Ari Elmore DO Primary Care Provider Colleen Diaz MD Unavailable Derek Wilson MD Unavailable [phone] Mar Jay MD Unavailable [phone] Mitch Austin DO Unavailable [phone] Mor Blancas MD Primary Care Provide r Madelyn Vicente MD PhD Unavailable [phone] Eric Washington MD Unavailable [phone] Encounter Details Date Type Department Care Team (Latest Contact Info) Description 02/07/2022 Orders Only [facility] Scanning, Provider [...] on file 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 Gender Identity Female 03/14/2022 6:19 PM CDT Sexual Orientation Not on file documented as of this encounter Plan of Treatment Not on file documented as of this encounter Procedures Procedure Name Priority Date/Time Associated Diagnosis Comments SCAN - RADIOLOGY/IMAGING 02/07/2022 documented in this encounter Results * SCAN - RADIOLOGY/IMAGING (02/07/2022) Anatomical Region Laterality Modality Other us Provider Scanning Edited Result - Final documented in this encounter Visit Diagnoses Not on filedocumented in this encounter Additional Health Concerns Infection Onset Date Last Indicated Resolved Time MDR gram neg/ESBL 07/23/2024 08/01/2024 documented as of this encounter Care Teams Manager Small Business Relationship Specialty Start Date End Date Ari Elmore DO [address] [place] [address] PCP - General Family Medicine 12/16/20 03/24/24 Mor Blancas MD [address] [place] [address] PCP - General Emergency Medicine 03/25/24 Flynn Ma MD [address] [facility] [address] [place] [address] Medical Oncologist/Head Of Digital Advertising & Integration Medical Oncology 09/28/18 Colleen Diaz MD [address] [place] [address] Referring Physician Nephrology 03/24/22 Derek Wilson MD [address] [place] [address] Referring Physician Obstetrics and Gynecology 06/26/23 Mar Jay MD [address] [place] [address] Surgeon Vascular Surgery 08/24/23 Mitch Austin DO [address] [facility] [address] [place] [address] Surgeon Surgery 09/26/23 Madelyn Vicente MD PhD [address] [facility] [id number] [place] [address] Registered Nurse Vascular Surgery 07/05/24 Eric Washington MD [address] [place] [address] Consulting Physician Plastic Surgery 07/29/24 documented as of this encounter
--- OUTSIDE RECORDS SUMMARY | 2024-12-12 16:48 | XMS_ITS | Encounter Summary ---
Author Organization [facility] Address [address] [place] [address] Phone Care Team Providers Care Hull Drafter Name Role Phone Flynn Ma MD Unavailable [phone] Colleen Diaz MD Unavailable Derek Wilson MD Unavailable [phone] Mar Jay MD Unavailable [phone] Mitch Austin DO Unavailable [phone] Mor Blancas MD Primary Care Provide r Madelyn Vicente MD PhD Unavailable [phone] Eric Washington MD Unavailable [phone] Encounter Details Date Type Department Care Team (Late st Contact Info) Description 12/12/2024 Telephone [facility] Vascular Surgery [address] [facility] [address] [facility] [place] [address] Franco Robertson, A Social History Tobacco Use Types Packs/Day Years Used Date Smoking Tobacco: Former Cigarettes 1 37.5 1 987 - 04/08/2024 Passive Smoke Exposure: Past Smokeless Tobacco: Never Comments:cutting down 4-6 a day Alcohol Use Standard Drinks/Week Comments No 0 (1 standard drink = 0.6 oz pur e alcohol) [facility] Utilities Answer Date Recorded In the past 12 months has th e electric, gas, oil, or water [employer] threatened to shut off services in your [...] often do you attend chur ch or temple services? Never 07/24/2024 Do you belong to any clubs o r organizations such as faith groups, unions, fraternal or athletic groups, or [...] any time in the past 12 m [facility], were you homeless or living in a intermediate (including now)? No 07/24/2024 Personal Safety Answer Date Recorded Have you ever been in or are you currently in a harmful physical or emotional relationship or is someone making you feel afraid or unsafe? 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 She is worried about it. She would like a phone call back at [phone]. S/P RLE angio 10/16/24 DING INSPECTOR documented in this encounter Plan of Treatment Not on file documented as of this encounter Visit Diagnoses Not on filedocumented in this encounter Additional Health Concerns Infection Onset Date Last Indicated Resolved Time MDR gram neg/ESBL 07/23/2024 08/01/2024 documented as of this encounter Care Teams Hull Drafter Relationship Specialty Start Date End Date Mor Blancas MD [address] [place] [address] PCP - General Emergency Medicine 03/25/24 Flynn Ma MD [address] [facility] [address] [place] [address] Medical Oncologist/Compatibility Test Engineer Medical Oncology 09/28/18 Colleen Diaz MD [address] [place] [address] Referring Physician Nephrology 03/24/22 Derek Wilson MD [address] [place] [address] Referring Physician Obstetrics and Gynecology 06/26/23 Mar Jay MD [address] [place] [address] Surgeon Vascular Surgery 08/24/23 Mitch Austin DO [address] [facility] [address] [place] [address] Surgeon Surgery 09/26/23 Madelyn Vicente MD PhD [address] [facility] [id number] [place] [address] Registered Nurse Vascular Surgery 07/05/24 Eric Wasihngton MD [address] [place] [address] Consulting Physician Plastic Surgery 07/29/24 documented as of this encounter
--- OUTSIDE RECORDS SUMMARY | 2024-12-12 16:48 | XMS_ITS | Clinical Summary ---
Author Organization [facility] Address [address] [place] [address] Care Team Providers Care Senior Telecommunications Engineer Name Role Phone Flynn Ma MD Unavailable [phone] Colleen Diaz MD Unavailable Derek Wilson MD Unavailable [phone] Mar Jay MD Unavailable [phone] Mitch Austin DO Unavailable [phone] Mor Blancas MD Primary Care Provide r Madelyn Vicente MD PhD Unavailable [phone] Eric Washington MD Unavailable [phone] Allergies Active Allergy Reactions Criticality Noted Date Comments Gentian Patricia Blisters High 09/22/2021 Medications allopurinoL (ZYLOPRIM) 100 mg tabletIndications :prevention of acute gout attack Take 1 tablet (100 mg total) by mouth 2 (two) times a day 021 Active atorvastatin (LIPITOR) 20 mg tabletIndications :hyperlipidemia Take 1 tablet (20 mg total) by mouth every morning 021 Active ondansetron ODT (ZOFRAN-ODT) 4 mg disintegrating tablet Take 1 tablet (4 mg total) by mouth every 8 (eight) hours as needed for nausea or vomiting Active aspirin 81 mg chewable tablet Take 1 tablet (81 mg total) by mouth daily 2024 Active Additional Information Patient taking differently:81 mg oralEvery morning, Indications: prevention of thrombosis, Informant: Self, Reported on 10/28/[address] (PROTONIX) 40 mg EC tabletIndications :Treatment of Non-Bleeding Gastric Disorder Take 1 tablet (40 mg total) by mouth 2 (two) times a day 60 tablet 3 024 2024 Active metoprolol XL (TOPROL-XL) 50 mg extended release tabletIndications :hypertension Take 1 tablet (50 mg total) by mouth every morning Active ALPRAZolam (XANAX) 0.5 mg tabletIndications :anxiety Take 1 tablet (0.5 mg total) by mouth 3 (three) times a day as needed for anxiety Active silver sulfadiazine (SILVADENE, SSD) 1 % cream Apply topically daily 50 g Active amLODIPine (NORVASC) 5 mg tabletIndications :hypertension Take 1 tablet (5 mg total) by mouth every morning Active lisinopriL (PRINIVIL,ZESTRIL ) 40 mg tabletIndications :hypertension Take 1 tablet (40 mg total) by mouth 2 (two) times a day Active Eliquis 5 mg tablet TAKE ONE TABLET (5MG TOTAL) BY MOUTH TWICE DAILY 60 tablet 5 025 Active Eliquis 5 mg tabletIndications :VTE Prophylaxis Take 1 tablet (5 mg total) by mouth 2 (two) times a day 60 tablet 3 024 2024 Discontinued Active Problems Problem Noted Date Diagnosed Date [...] 07/02/2024 Assessment & Plan (10/16/2024 2:41 PM COLD TYPE COMPOSING MACHINE OPERATOR): Has chronic abdominal pain due to likely [...] protonix BID - Diet as tolerated - 9/25: CTA abd and pelvis triple phase for [...] 07/01/2024 Assessment & Plan (10/16/2024 2:42 PM COLD TYPE COMPOSING MACHINE OPERATOR): Hx RLE arterial occlusion/DVT 07/2023; h/o splenic [...] 07/01/2024 Assessment & Plan (10/16/2024 2:40 PM COLD TYPE COMPOSING MACHINE OPERATOR): Patient with previous right lower extremity bypass [...] 07/22: emergent OR s/p thrombectomy of R SEPTIC TANK CLEANER, bypass graft, below knee popliteal. R groin [...] lateral thigh PRS: Prolene sutures. Daily vaseline, IRRIGATING PUMP OPERATOR. Wound vac to thigh replaced Assessment & [...] 06/26/2023. Held Plavix/Eliquis due to bleeding. - Poolroom/Poolhall Manager consult on 08/08 - Hold home medication [...] 2016, in remission April 2023. Follows with [facility]. Resolved Problems Problem Noted Date Diagnosed Date Resolved Date Urinary tract infection 08/07/2023 06/0 12/2023 Overview (08/07/2023): Recently hospitalized at [place] for pyelonephritis. Discharged on Keflex (08/01-08/10). - Continue cephalexin 500 mg BID. Assessment & Plan (08/07/2023 10:53 PM CDT): Recently hospitalized at [place] for pyelonephritis. Discharged on Keflex (08/01-08/10). - Continue cephalexin 500 mg BID. Flu vaccine need 09/07/2022 08/07/2023 Dehydration 06/27/2022 08/07/2023 Immunocompromised 05/18/2022 08/07/2023 Encounters Date Type Department Care Team Description 12/12/2024 Telephone [facility] Vascular Surgery [address] [place] [address] Medical Office Building [address] [place] [address] Franco Robertson, JOSE 12/04/2024 Telephone [facility] ([facility]) - [facility] Minimally Invasive Surgery [address] [facility] 12th Floor, [place] [address] Mor Jain MD PhD Medical Question/Miscellane ous 11/27/2024 11:00 AM COLD TYPE COMPOSING MACHINE OPERATOR Office Visit [facility] Surgery [address] [facility] 8th [place] [address] [place] [address] Madelyn Vicente MD PhD Encounter for surgical aftercare following surgery on the circulatory system (Primary Dx) 11/27/2024 10:15 AM COLD TYPE COMPOSING MACHINE OPERATOR Ancillary Procedure [facility] Vascular Lab at the [facility] [address] [facility] 8th [place] [address] [place] [address] Encounter for surgical aftercare following surgery on the circulatory system; PAD (peripheral artery disease); Presence of other vascular implants and grafts 11/25/2024 Orders Only [facility] Surgery [address] [facility] Floor 1 [place] [address] Madelyn Vicente MD PhD Encounter for surgical aftercare following surgery on the circulatory system (Primary Dx); Presence of other vascular implants and grafts 11/21/2024 Telephone [facility] ([facility]) [facility] Minimally Invasive Surgery [address] [facility] 12th Floor, [place] [address] Mro Jain MD PhD Medical Question/Miscellane ous 11/11/2024 1:00 PM COLD TYPE COMPOSING MACHINE OPERATOR Infusion [address] [address] Iron deficiency anemia, unspecified iron deficiency anemia type (Primary Dx); Anemia, unspecified type 11/04/2024 1:00 PM COLD TYPE COMPOSING MACHINE OPERATOR Infusion [address] [address] Iron deficiency anemia, unspecified iron deficiency anemia type (Primary Dx); Anemia, unspecified type 11/04/2024 Telephone [facility] ([facility]) [facility] Minimally Invasive Surgery [address] [place] [address] 12th Floor, [place] [address] Mor Jain MD PhD Scheduling Appointments 10/30/2024 Orders Only [facility] Oncology [address] [facility] Floor 6 [place] [address] Mireya Briceno RN 10/30/2024 Orders Only [facility] Oncology [address] [facility] [address] 6 [place] [address] Mireya Briceno, WILBERTO 10/29/2024 Orders Only [facility] Oncology [address] [facility] [address] 6 [place] [address] Kirsten Roa NP Anemia, unspecified type (Primary Dx) 10/28/2024 3:15 PM COLD TYPE COMPOSING MACHINE OPERATOR Office Visit [facility] Oncology [address] [place] [address] Kirsten Roa NP Chronic lymphoid leukemia, without mention of having achieved remission(204.10) (HCC) (Primary Dx); Anemia, unspecified type 10/28/2024 2:30 PM COLD TYPE COMPOSING MACHINE OPERATOR Lab [facility] [address] [place] [address] Chronic lymphoid leukemia, without mention of having achieved remission(204.10) (HCC) 10/23/2024 Telephone [facility] Surgery [address] [facility] 6th [place] [address] [place] [address] Aracelis Purcell NP 10/18/2024 Orders Only [facility] Surgery [address] [facility] 2nd Floor [address] [place] [address] Madelyn Vicente MD PhD Encounter for surgical aftercare following surgery on the circulatory system (Primary Dx); PAD (peripheral artery disease) 10/16/2024 12:34 PM COLD TYPE COMPOSING MACHINE OPERATOR Anesthesia Event [facility] Operating Room 1 [place] [address] Valentino Menezes MD 10/16/2024 12:20 PM COLD TYPE COMPOSING MACHINE OPERATOR - 10/16/2024 4:15 PM COLD TYPE COMPOSING MACHINE OPERATOR Surgery [facility] Operating Room [address] [place] [address] Madelyn Vicente MD PhD Angiogram 10/16/2024 9:18 AM COLD TYPE COMPOSING MACHINE OPERATOR - 10/16/2024 6:50 PM COLD TYPE COMPOSING MACHINE OPERATOR Hospital Encounter [facility] Operating Room [address] [place] [address] Madelyn Vicente MD PhD PAD (peripheral artery disease) Discharge Disposition: Discharge to home or self care 10/14/2024 Telephone [facility] Surgery [address] [facility] Floor 1 [place] [address] Madelyn Vicente MD PhD 10/11/2024 11:59 PM COLD TYPE COMPOSING MACHINE OPERATOR Anesthesia Event [facility] Operating Room [address] [place] [address] Mustapha George MD 10/11/2024 2:00 PM COLD TYPE COMPOSING MACHINE OPERATOR Pre-Admission Testing [facility] for Preoperative Assessment and Planning [facility] ([facility]) [address] [place] [address] Preoperative testing (Primary Dx) 10/07/2024 12:44 PM COLD TYPE COMPOSING MACHINE OPERATOR - 10/07/2024 11:59 PM COLD TYPE COMPOSING MACHINE OPERATOR Hospital Encounter [facility] [address] [place] [address] PAD (peripheral artery disease) Discharge Disposition: Discharge to home or self care 10/07/2024 10:15 AM COLD TYPE COMPOSING MACHINE OPERATOR Office Visit [facility] Vascular Surgery [address] [place] [address] Medical Office Building [address] [place] [address] Madelyn Vicente MD PhD PAD (peripheral artery disease) (Primary Dx) 10/07/2024 Documentation [facility] Vascular Surgery [address] [place] [address] Medical Office Building [address] [place] [address] Madelyn Vicente MD PhD 09/26/2024 11:00 AM COLD TYPE COMPOSING MACHINE OPERATOR Ancillary Procedure [facility] Vascular Lab at the [facility] [address] [place] [address] [facility] 8th [place] [address] [place] [address] Encounter for surgical aftercare following surgery on the circulatory system; Atherosclerosis of [place] arteries of extremities with intermittent claudication, right leg 09/23/2024 10:45 AM COLD TYPE COMPOSING MACHINE OPERATOR Office Visit [facility] Surgery [facility] 6th [place] [address] [place] [address] Aracelis Purcell NP Acute lower limb ischemia (Primary Dx) from Last 3 Months Immunizations Immunization Administration Dates Next Due Influenza, Quadrivalent, Karissa l Culture-based MDCK, Preservative Free, Antibiotic Free, Intramuscular 09/07/2022 Surgical History Surgery Date Site/Laterality Comments TONSILLECTOMY DILATION AND CURETTAGE OF UTERUS January HYSTERECTOMY CHOLECYSTECTOMY RESECTION LIVER PARTIAL / TO MONO W/ RADIOFREQUENCY ABLATION VASCULAR SURGERY 07/01/2024 Right femoral to popliteal artery bypass ESOPHAGOGASTRODUODENOSCOPY 07/03/2024 CENTRAL LINE PLACEMENT > 5 YEARS 07/26/2024 N/A Medical History Medical History Date Comments HTN (hypertension) Tobacco use Chronic kidney disease Chronic lymphocytic leukemia (HCC) Family History Medical History Relation Name Comments No Known Problems Brother Bladder Cancer Cousin CHF Father Pancreatic cancer Half-Brother Pancreatic cancer Half-Sister 1 No Known Problems Half-Sister 2 No Known Problems Half-Sister 3 No Known Problems Half-Sister 4 No Known Problems Mother Throat cancer Paternal Grandfather Colon cancer Paternal Grandmother Anesthesia problems Neg Hx Relation Name Status Comments Brother Alive Cousin Alive Father Half-Brother Half-Sister 1 Half-Sister 2 Alive Half-Sister 3 Alive Half-Sister 4 Alive Mother Alive Other cousin with denisse ast cancer Paternal Grandfather Paternal Grandmother Social History Tobacco Use Types Packs/Day Years Used Date Smoking Tobacco: Former Cigarettes 1 37.5 1 987 - 04/08/2024 Passive Smoke Exposure: Past Smokeless Tobacco: Never Tobacco Cessation:Counseling Given: Not Answered Comments:cutting down 4-6 a day Alcohol Use Standard Drinks/Week Comments No 0 (1 standard drink = 0.6 oz pur e alcohol) [employer] Answer Date Recorded In the past 12 months has [employer], [employer], oil, or water [employer] threatened to shut off services in your [...] 07/24/2024 How often do you attend chur or faith services? Never 07/24/2024 Do you belong to any clubs o r organizations such as islam groups, unions, fraternal or athletic groups, or [...] any time in the past 12 m [facility], were you homeless or living in a long term (including now)? No 07/24/2024 Personal Safety Answer Date Recorded Have you ever been in or are you currently in a harmful physical or emotional relationship or is someone making you feel afraid or unsafe? Denies 10/16/2024 Comments No Sex and Gender Information Value Date Recorded Sex Assigned at Not on file 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 COLD TYPE COMPOSING MACHINE OPERATOR Gender Identity Female 03/14/2022 6:19 PM CDT Sexual Orientation Not on file Obstetrics History Last Filed Vital Signs Vital Sign Reading Time Taken Comments Blood Pressure 136/73 11/27/2024 10:59 AM COLD TYPE COMPOSING MACHINE OPERATOR Pulse 54 11/27/2024 10:59 AM COLD TYPE COMPOSING MACHINE OPERATOR Temperature 36.6 C (97.9 F) 11/11/2024 1:41 PM COLD TYPE COMPOSING MACHINE OPERATOR Respiratory Rate 16 11/11/2024 1:51 PM COLD TYPE COMPOSING MACHINE OPERATOR Oxygen Saturation 97% 11/27/2024 10:59 AM COLD TYPE COMPOSING MACHINE OPERATOR Inhaled Oxygen Concentration - - Weight 97.1 kg (214 lb) 11/27/2024 10:59 AM COLD TYPE COMPOSING MACHINE OPERATOR Height 162.6 cm (5' 4 ) 11/27/2024 10:59 AM COLD TYPE COMPOSING MACHINE OPERATOR Body Mass Index 36.73 11/27/2024 10:59 AM COLD TYPE COMPOSING MACHINE OPERATOR Plan of Treatment Health Maintenance Due Date Last Done Comments Breast Cancer Screening-Mammogram 1972 Colon Cancer Screening-Colonoscopy 1972 Hepatitis C Screening 1972 DTaP/Tdap/Td Vaccine (1 - Tdap) 1983 Hepatitis B Screening 1990 Regular Well Visit/Exam 18-64 1990 Pneumococcal vaccine <65 (1 of 2 - PCV) 1991 Zoster Vaccine (1 of 2) 1991 Lung Cancer Screening 2022 Influenza Vaccine (#1) 2024 09/07/2022 Depression Screening 07/22/2025 07/22/2024, 07/15/20 24 Medical Devices Implanted Type Area Foundation Stage Teacher Device Identifier Shelf Expiration Date Model / Serial / Lot [employer] Patch Vascuguard 0.88cm [id number] - [id number] Implanted:Qty : 1 on 07/01/2024 by Madelyn Vicente MD PhD at [facility] Other - see comments Right: Common Femoral Artery [employer] [id number] 10/02/2025 [id number] / / [id number] [employer] Restrata Mini Matrix 100mg Micronized Powder Rmini-100 - [id number] Implanted:Qty : 1 on 07/16/2024 by Madelyn Vicente MD PhD at [facility] Right: Groin [employer] 07/11/2025 RMINI-10 0 [employer] Patch Vascuguard 0.88cm [id number] - [id number] - [id number] Implanted:Qty : 1 on 07/22/2024 by Madelyn Vicente MD PhD at [facility] Right: Knee [employer] [id number] 02/19/2026 [id number] / [id number] / [id number] Procedures Procedure Name Priority Date/Time Associated Diagnosis Comments US ARTERIAL DUPLEX LOWER EXTREMITY RIGHT LIMITED Routine 11/27/2024 11:09 AM COLD TYPE COMPOSING MACHINE OPERATOR Encounter for surgical aftercare following surgery on the circulatory system Presence of other vascular implants and grafts US ARTERIAL DOPPLER LOWER EXTREMITY BILATERAL Routine 11/27/2024 11:09 AM COLD TYPE COMPOSING MACHINE OPERATOR Encounter for surgical aftercare following surgery on the circulatory system PAD (peripheral artery disease) IRON PROFILE W/ IBC Routine 10/28/2024 2 :02 PM COLD TYPE COMPOSING MACHINE OPERATOR Chronic lymphoid leukemia, without mention of having achieved remission(204.10) (HCC) FERRITIN Routine 10/28/2024 2:02 PM COLD TYPE COMPOSING MACHINE OPERATOR Chronic lymphoid leukemia, without mention of having achieved remission(204.10) (HCC) EGFR Routine 10/28/2024 2:02 PM COLD TYPE COMPOSING MACHINE OPERATOR Chronic lymphoid leukemia, without mention of having achieved remission(204.10) (HCC) DIFFERENTIAL AUTO Routine 10/28/2024 2:0 2 PM COLD TYPE COMPOSING MACHINE OPERATOR Chronic lymphoid leukemia, without mention of having achieved remission(204.10) (HCC) BETA 2 MICROGLOBULIN SERUM Routine 10/28/2024 2:02 PM COLD TYPE COMPOSING MACHINE OPERATOR Chronic lymphoid leukemia, without mention of having achieved remission(204.10) (HCC) CBC WITH AUTO DIFFERENTIAL Routine 10/28/2024 2:02 PM COLD TYPE COMPOSING MACHINE OPERATOR Chronic lymphoid leukemia, without mention of having achieved remission(204.10) (HCC) COMPREHENSIVE METABOLIC PANEL Routine 10/28/2024 2:02 PM COLD TYPE COMPOSING MACHINE OPERATOR Chronic lymphoid leukemia, without mention of having achieved remission(204.10) (HCC) LACTATE DEHYDROGENASE Routine 10/28/2024 2:02 PM COLD TYPE COMPOSING MACHINE OPERATOR Chronic lymphoid leukemia, without mention of having achieved remission(204.10) (HCC) CV HYBRID ROOM (DEFAULT ORDERABLE) Routine 10/16/2024 3:19 PM COLD TYPE COMPOSING MACHINE OPERATOR PAD (peripheral artery disease) VASCULAR SURGERY PROCEDURE Routine 10/16/2024 3:19 PM COLD TYPE COMPOSING MACHINE OPERATOR PAD (peripheral artery disease) FL FLUOROSCOPY < 1 HOUR IP Routine 10/16/2024 2:45 PM COLD TYPE COMPOSING MACHINE OPERATOR POCT ACTIVATED CLOTTING TIME, LOW RANGE Routine 10/16/2024 2:40 PM COLD TYPE COMPOSING MACHINE OPERATOR POCT ACTIVATED CLOTTING TIME, LOW RANGE Routine 10/16/2024 2:19 PM COLD TYPE COMPOSING MACHINE OPERATOR TYPE AND SCREEN STAT 10/16/2024 12:21 PM COLD TYPE COMPOSING MACHINE OPERATOR EGFR Routine 10/11/2024 4:29 PM COLD TYPE COMPOSING MACHINE OPERATOR Preoperative testing CBC WITHOUT DIFFERENTIAL Routine 10/11/2024 4:29 PM COLD TYPE COMPOSING MACHINE OPERATOR Preoperative testing BASIC METABOLIC PANEL Routine 10/11/2024 4:29 PM COLD TYPE COMPOSING MACHINE OPERATOR Preoperative testing TYPE AND SCREEN Routine 10/11/2024 4:29 PM COLD TYPE COMPOSING MACHINE OPERATOR Preoperative testing CTA ABDOMINAL AORTA AND BILATERAL ILIOFEMORAL RUNOFF Schedule Routine, Read Routine (OP Routine) 10/07/2024 1:09 PM COLD TYPE COMPOSING MACHINE OPERATOR PAD (peripheral artery disease) US ARTERIAL DUPLEX LOWER EXTREMITY RIGHT LIMITED Schedule Routine, Read Routine (OP Routine) 09/26/2024 11:38 AM COLD TYPE COMPOSING MACHINE OPERATOR Atherosclerosis of [place] arteries of extremities with intermittent claudication, right leg Encounter for surgical aftercare following surgery on the circulatory system US ARTERIAL DOPPLER LOWER EXTREMITY BILATERAL Schedule Routine, Read Routine (OP Routine) 09/26/2024 11:38 AM COLD TYPE COMPOSING MACHINE OPERATOR Encounter for surgical aftercare following surgery on the circulatory system from Last 3 Months Results * US Arterial Duplex Lower Extremity Right Limited (11/27/2024 11:09 AM COLD TYPE COMPOSING MACHINE OPERATOR) Anatomical Region Laterality Modality Vascular Right Ultrasound 11/27/2024 10:0 6 AM COLD TYPE COMPOSING MACHINE OPERATOR Narrative 11/27/2024 6:44 PM COLD TYPE COMPOSING MACHINE OPERATOR [facility] - Department of Vascular Surgery, Vascular Laboratory [address] [place] [address] Lower Extremity Arterial Duplex - Bypass Graft Report Patient Name: JEFFERY HAMILTON : 1970 Study Date: 11/27/2024 10:06:16 AM Gender: F Tech: [place] Location: [facility] Ref Provider: MADELYN VICENTE Quality: Adequate Order Provider: MADELYN VICENTE PROCEDURES: Arterial Report: Femoral - AK Popliteal Bypass Graft. INDICATIONS: Z48.812 Encounter for surgical aftercare following surgery on the circulatory system and Z95.828 Presence of other vascular implants and grafts. MEASUREMENTS: Right Value Units Rt Inflow Artery 72 cm/s Rt Proximal Anastomosis 44 cm/s Rt Proximal Graft 53 cm/s Rt Mid Graft 78 cm/s Rt Distal Graft 428 cm/s Rt Distal Anastomosis 91 cm/s Rt Outflow Artery 47 cm/s Right Value Units FINDINGS: Performing Sweatband Maker: Dolores Pablo RVT. Right Leg: The inflow waveform is multiphasic. The proximal anastomosis waveform is multiphasic. The proximal graft waveform is multiphasic. The mid graft waveform is multiphasic. Systolic velocity ratio at the distal graft is 4.6 which is consistent with a >75% stenosis. PSV pre stenosis 98 cm/s PSV at stenosis 428 cm/s. The distal anastomosis waveform is turbulent. The outflow waveform is monophasic. Provider Notification: Results called on the above date to Madelyn Vicente MD. Time called 11:00 am. CONCLUSIONS: 1. Patent right lower extremity bypass graft with a >75% stenosis at the distal graft level. HISTORY: Angioplasty of the right lower extremity bypass graft s/p on 07/22/2024 right BPG thrombectomyp s/p on 07/01/24 Right lower extremity femoral to above knee popliteal artery bypass with ipsilateral greater saphenous vein in an in situ fashion - PREVIOUS STUDIES: Previous study on 09-26-24, patent BPG. DISCLAIMER: The study images and the final report will be retained in the patient chart by the Vascular Laboratory for the legally required time period. This chart constitutes the legal record of any testing performed. ATTESTATION: I have reviewed and interpreted the pertinent images and measurements of this study. I attest to the conclusions in the final report that is provided above. Electronically Signed By: Bharath Cortez MD FACS 11/27/2024 5:45:35 PM COLD TYPE COMPOSING MACHINE OPERATOR Procedure Note Bharath Cortez MD - 11/27/2024 [facility] - Department of Vascular Surgery,Vascular Laboratory [address] [place] [id number] Lower Extremity Arterial Duplex - Bypass Graft Report Patient Name: JEFFERY HAMILTON : 1970 Study Date: 11/27/2024 10:06:16 AM Gender: F Tech: IA Location: [facility] Provider: MADELYN VICENTE Quality: Adequate Order Provider: MADELYN VICENTE PROCEDURES: Arterial Report: Femoral - AK Popliteal Bypass Graft. INDICATIONS: Z48.812 Encounter for surgical aftercare following surgery on the[employer] system and Z95.828 Presence of other vascular implants and grafts. MEASUREMENTS: Right Value Units Rt Inflow Artery 72 cm/s Rt Proximal Anastomosis 44 cm/s Rt Proximal Graft 53 cm/s Rt Mid Graft 78 cm/s Rt Distal Graft 428 cm/s Rt Distal Anastomosis 91 cm/s Rt Outflow Artery 47 cm/s Right Value Units FINDINGS: Performing Sweatband Maker: Dolores Pablo RVT. Right Leg: The inflow waveform is multiphasic. The proximal anastomosis waveform ismultiphasic. The proximal graft waveform is multiphasic. The mid graft waveform ismultiphasic. Systolic velocity ratio at the distal graft is 4.6 which is consistent with a >75%stenosis. PSV pre stenosis 98 cm/s PSV at stenosis 428 cm/s. The distal anastomosis waveform is turbulent.The outflow waveform is monophasic. Provider Notification: Results called on the above date to Madelyn Vicente MD. Time called 11:00am. CONCLUSIONS: 1. Patent right lower extremity bypass graft with a >75% stenosis at thedistal graft level. HISTORY: Angioplasty of the right lower extremity bypass graft s/p on 07/22/2024 right BPG thrombectomyp s/p on 07/01/24 Right lower extremity femoral to above knee poplitealartery bypass with ipsilateral greater saphenous vein in an in situ fashion - PREVIOUS STUDIES: Previous study on 09-26-24, patent BPG. DISCLAIMER: The study images and the final report will be retained in the patientchart by the Vascular Laboratory for the legally required time period. This chartconstitutes the legal record of any testing performed. ATTESTATION: I have reviewed and interpreted the pertinent images and measurements ofthis study. I attest to the conclusions in the final report that is provided above. Electronically Signed By: Bharath Cortez MD [facility] 11/27/2024 5:45:35 PM COLD TYPE COMPOSING MACHINE OPERATOR us Madelyn Vicente MD PhD IMG US PROCEDURES Kelsea l Result * US Arterial Doppler Lower Extremity Bilateral (11/27/2024 11:09 AM COLD TYPE COMPOSING MACHINE OPERATOR) Anatomical Region Laterality Modality Vascular Bilateral Ultrasound 11/27/2024 10:2 5 AM COLD TYPE COMPOSING MACHINE OPERATOR Narrative 11/27/2024 6:44 PM COLD TYPE COMPOSING MACHINE OPERATOR [facility] - Department of Vascular Surgery, Vascular Laboratory [address] [place] [address] Lower Extremity Arterial Doppler Report Patient Name: JEFFERY HAMILTON : 1970 Study Date: 11/27/2024 10:25:00 AM Gender: F Tech: Dolores Pablo T Location: [facility] Ref Provider: MADELYN VICENTE Quality: Adequate Order Provider: MADELYN VICENTE PROCEDURES: Arterial Report: Bilateral lower extremity arterial Doppler exam at rest. INDICATIONS: Z48.812 Encounter for surgical aftercare following surgery on the circulatory system and I73.9 Peripheral vascular disease, unspecified. MEASUREMENTS: Right Value Units Left Value Units Rt Brachial Pressure 144 mmHg Lt Brachial Pressure 153 mmHg Rt MANAGER OF MAINTENANCE Pressure 131 mmHg Lt MANAGER OF MAINTENANCE Pressure 131 mmHg Rt DPA Pressure 127 mmHg Lt DPA Pressure 125 mmHg Rt 1st Digit Pressure 90 mmHg Lt 1st Digit Pressure 75 mmHg Rt PT KAROLYN Resting 0.86 Lt PT KAROLYN Resting 0.86 Rt AT KAROLYN Resting 0.83 Lt AT KAROLYN Resting 0.82 Rt Digit/Arm Index 0.59 Lt Digit/Arm Index 0.49 Right Value Units Left Value Units FINDINGS: Performing Sweatband Maker: Dolores Pablo RVT. Right Common Femoral Artery Analysis: The common femoral artery waveform is multiphasic. (waveform dampened due to scar tissue). Right Popliteal Artery Analysis: The popliteal waveform is monophasic. Right Posterior Tibial Artery Analysis: The posterior tibial waveform is monophasic. Right Anterior Tibial Artery Analysis: The anterior tibial waveform is monophasic. Right Digits: The right digit waveform is dampened. Left Common Femoral Artery Analysis: The common femoral artery waveform is multiphasic. Left Popliteal Artery Analysis: The popliteal waveform is monophasic. Left Posterior Tibial Artery Analysis: The posterior tibial waveform is monophasic. Left Anterior Tibial Artery Analysis: The anterior tibial waveform is monophasic. Left Digits: The left digit waveform is dampened. CONCLUSIONS: 1. The above listed Ankle/Brachial Indicies at rest are consistent with moderate peripheral arterial disease - claudication, bilaterally (for reference, claudication range is 0.50 -0.89). 2. Bilateral Digit/Arm Indices are abnormal (for reference, abnormal CORINA is <0.6). 3. There is evidence of arterial insufficiency bilaterally at the level of femoral-popliteal arteries. HISTORY: Angioplasty of the right lower extremity bypass graft 10-16-24 s/p on 07/22/2024 right BPG thrombectomyp s/p on 07/01/24 Right lower extremity femoral to above knee popliteal artery bypass with ipsilateral greater saphenous vein in an in situ fashion. PREVIOUS STUDIES: Previous study on 09-26-24 RT: 0.50 LT: 0.76. DISCLAIMER: The study images and the final report will be retained in the patient chart by the Vascular Laboratory for the legally required time period. This chart constitutes the legal record of any testing performed. ATTESTATION: I have reviewed and interpreted the pertinent images and measurements of this study. I attest to the conclusions in the final report that is provided above. Electronically Signed By: Bharath Cortez MD FACS 11/27/2024 5:46:29 PM COLD TYPE COMPOSING MACHINE OPERATOR Procedure Note Bharath Cortez MD - 11/27/2024 [facility] - Department of Vascular Surgery,Vascular Laboratory [address] [place] [address] Lower Extremity Arterial Doppler Report Patient Name: JEFFERY HAMILTON : 1970 Study Date: 11/27/2024 10:25:00 AM Gender: F Tech: [facility] Location: [facility] Ref Provider: MADELYN VICENTE Quality: Adequate Order Provider: MADELYN VICENTE PROCEDURES: Arterial Report: Bilateral lower extremity arterial Doppler exam at rest. INDICATIONS: Z48.812 Encounter for surgical aftercare following surgery on thecirculatory system and I73.9 Peripheral vascular disease, unspecified. MEASUREMENTS: Right Value Units Left Value Units Rt Brachial Pressure 144 mmHg Lt Brachial Pressure 153 mmHg Rt MANAGER OF MAINTENANCE Pressure 131 mmHg Lt MANAGER OF MAINTENANCE Pressure 131 mmHg Rt DPA Pressure 127 mmHg Lt DPA Pressure 125 mmHg Rt 1st Digit Pressure 90 mmHg Lt 1st Digit Pressure 75 mmHg Rt PT KAROLYN Resting 0.86 Lt PT KAROLYN Resting 0.86 Rt AT KAROLYN Resting 0.83 Lt AT KAROLYN Resting 0.82 Rt Digit/Arm Index 0.59 Lt Digit/Arm Index 0.49 Right Value Units Left Value Units FINDINGS: Performing Sweatband Maker: Dolores Pablo RVT. Right Common Femoral Artery Analysis: The common femoral artery waveform is multiphasic. (waveform dampened dueto scar tissue). Right Popliteal Artery Analysis: The popliteal waveform is monophasic. Right Posterior Tibial Artery Analysis: The posterior tibial waveform is monophasic. Right Anterior Tibial Artery Analysis: The anterior tibial waveform is monophasic. Right Digits: The right digit waveform is dampened. Left Common Femoral Artery Analysis: The common femoral artery waveform is multiphasic. Left Popliteal Artery Analysis: The popliteal waveform is monophasic. Left Posterior Tibial Artery Analysis: The posterior tibial waveform is monophasic. Left Anterior Tibial Artery Analysis: The anterior tibial waveform is monophasic. Left Digits: The left digit waveform is dampened. CONCLUSIONS: 1. The above listed Ankle/Brachial Indicies at rest are consistent withmoderate peripheral arterial disease - claudication, bilaterally (for reference,claudication range is 0.50 -0.89). 2. Bilateral Digit/Arm Indices are abnormal (for reference, abnormal DAIis <0.6). 3. There is evidence of arterial insufficiency bilaterally at the level of femoral-popliteal arteries. HISTORY: Angioplasty of the right lower extremity bypass graft 10-16-24 s/p on 07/22/2024 right BPG thrombectomyp s/p on 07/01/24 Right lower extremity femoral to above knee poplitealartery bypass with ipsilateral greater saphenous vein in an in situ fashion. PREVIOUS STUDIES: Previous study on 09-26-24 RT: 0.50 LT: 0.76. DISCLAIMER: The study images and the final report will be retained in the patientchart by the Vascular Laboratory for the legally required time period. This chartconstitutes the legal record of any testing performed. ATTESTATION: I have reviewed and interpreted the pertinent images and measurements ofthis study. I attest to the conclusions in the final report that is provided above. Electronically Signed By: Bharath Cortez MD FACS 11/27/2024 5:46:29 PM COLD TYPE COMPOSING MACHINE OPERATOR us Madelyn Vicente MD PhD IMG US PROCEDURES Kelsea l Result * eGFR (10/28/2024 2:02 PM COLD TYPE COMPOSING MACHINE OPERATOR) eGFR 69 >=60 mL/min/1. 73 m2 Comment: Interpretive Data Reference Interval Normal >/= 90 mL/min/1.73m2 Mildly decreased* 60 - 89 mL/min/1.73m2 Mildly to moderately decreased 45 - 59 mL/min/1.73m2 Moderately to severely decreased 30 - 44 mL/min/1.73m2 Severely decreased 15 - 29 mL/min/1.73m2 Kidney Failure < 15 mL/min/1.73m2 *Relative to young adult level Estimated glomerular filtration rate is determined by the 2020 CKD-EPI equation recommended by the National Kidney Foundation (A Unifying Approach to GFR Estimation: Recommendations of the NKF-ASK Task Force on Reassessing the Inclusion of Race in Diagnosing Kidney Disease, JASN 202). The CKD-EPI equation should not be used for patients with unstable renal function and has not been validated in children and those over 70. Current interpretive data was last reviewed 2021. Blood 10/28/2024 2:02 PM COLD TYPE COMPOSING MACHINE OPERATOR 10/28/2024 2:02 PM COLD TYPE COMPOSING MACHINE OPERATOR us Kirsten Roa NP LAB BLOOD ORDDorie TUTTLE Final Result [facility] Department [place] [address] * (ABNORMAL) Differential, auto (10/28/2024 2:02 PM COLD TYPE COMPOSING MACHINE OPERATOR) Neutrophil abs 11.4(H) 1.5 - 6.5 K/cumm Comment:Testing performed by : [facility], [address] [place] [id number] Imm gran abs 0.1 0.0 - 0.1 K/cumm [facility] Lymphocyte abs 4.6(H) 0.8 - 3.3 K/cumm [facility] Monocyte abs 0.9(H) 0.2 - 0.8 K/cumm [facility] Eosinophil abs 0.3 0.0 - 0.5 K/cumm [facility] Basophil abs 0.1 0.0 - 0.1 K/cumm [facility] Neutrophil pct 65.8 % [facility] Comment: Interpretive Data Percent cell count reference ranges are not reported, since discordance with absolute values may lead to misinterpretation of CBC data. Current Interpretive Data was last revised on 2018. Imm gran pct 0.5 % [facility] Comment: Interpretive Data Percent cell count reference ranges are not reported, since discordance with absolute values may lead to misinterpretation of CBC data. Current Interpretive Data was last revised on 2018. Lymphocyte pct 26.3 % [facility] Comment: Interpretive Data Percent cell count reference ranges are not reported, since discordance with absolute values may lead to misinterpretation of CBC data. Current Interpretive Data was last revised on 2018. Monocyte pct 5.3 % [facility] Comment: Interpretive Data Percent cell count reference ranges are not reported, since discordance with absolute values may lead to misinterpretation of CBC data. Current Interpretive Data was last revised on 2018. Eosinophil pct 1.6 % [facility] Comment: Interpretive Data Percent cell count reference ranges are not reported, since discordance with absolute values may lead to misinterpretation of CBC data. Current Interpretive Data was last revised on 2018. Basophil pct 0.5 % [facility] Comment: Interpretive Data Percent cell count reference ranges are not reported, since discordance with absolute values may lead to misinterpretation of CBC data. Current Interpretive Data was last revised on 2018. Blood 10/28/2024 2:02 PM COLD TYPE COMPOSING MACHINE OPERATOR 10/28/2024 2:02 PM COLD TYPE COMPOSING MACHINE OPERATOR Kirsten Roa NP LAB BLOOD ORDE PARAG Final Result Performing Organization Address City/[facility]/ZIP Co de Phone Number [facility] [place] [address] * (ABNORMAL) Iron profile w/ IBC (10/28/2024 2:02 PM COLD TYPE COMPOSING MACHINE OPERATOR) Pathologist [facility] Iron 14(L) 35 - 145 mcg/dL TIBC 274 250 - 400 mcg/dL [facility] Transferrin saturation 5(L) 20 - 50 % [facility] Blood 10/28/2024 2:02 PM COLD TYPE COMPOSING MACHINE OPERATOR 10/28/2024 3:30 PM COLD TYPE COMPOSING MACHINE OPERATOR Flynn Ma MD LAB BLOOD ORDERABLES Final R esult Performing Organization Address [facility] Co de Phone Number [facility] [place] [address] * (ABNORMAL) CBC with auto differential (10/28/2024 2:02 PM COLD TYPE COMPOSING MACHINE OPERATOR) WBC 17.3(H) 3.8 - 9.9 K/cumm Comment:Testing performed by : [address] [address] Hgb 8.8(L) 11.9 - 15.5 g/dL [facility] Comment:Testing performed by : [address] [address] Hct 31.2(L) 35.6 - 45.5 % [facility] Comment:Testing performed by : [address] [address] Plt 430(H) 150 - 400 K/cumm [facility] Comment:Testing performed by : [address] [place], [place] [address] MPV 9.0(L) 9.1 - 12.3 fL [facility] RBC 4.33 3.90 - 5.20 M/cumm [facility] MCV 72.1(L) 81.3 - 96.4 fL [facility] MCH 20.3(L) 27.1 - 33.3 pg [facility] MCHC 28.2(L) 32.3 - 35.7 g/dL [facility] RDW CV 19.4(H) 11.1 - 14.9 % [facility] RDW SD 49.3(H) 35.7 - 48.1 fL [facility] NRBC abs 0.02(H) 0.00 - 0.01 K/cumm [facility] Blood 10/28/2024 2:02 PM COLD TYPE COMPOSING MACHINE OPERATOR 10/28/2024 2:02 PM COLD TYPE COMPOSING MACHINE OPERATOR Kirsten Negrita Roa [facility] Final Result [facility] Department [place] [address] * Lactate dehydrogenase (LD) (10/28/2024 2:02 PM COLD TYPE COMPOSING MACHINE OPERATOR) [facility] Lactate dehydrogenase (LDH) 160 100 - 250 Units/L Comment:Testing performed by : [facility], [address] [place] [address] Blood 10/28/2024 2:02 PM COLD TYPE COMPOSING MACHINE OPERATOR 10/28/2024 2:02 PM COLD TYPE COMPOSING MACHINE OPERATOR [facility] Callawaybethany [facility] Final Result [facility] [place] [address] * Ferritin (10/28/2024 2:02 PM COLD TYPE COMPOSING MACHINE OPERATOR) [facility] Ferritin 13 13 - 150 ng/mL Blood 10/28/2024 2:02 PM COLD TYPE COMPOSING MACHINE OPERATOR 10/28/2024 3:30 PM COLD TYPE COMPOSING MACHINE OPERATOR Flynn Ma MD LAB BLOOD ORDERABLES Final R esult [facility] [place] [address] * (ABNORMAL) Beta 2 microglobulin, serum (10/28/2024 2:02 PM COLD TYPE COMPOSING MACHINE OPERATOR) Beta 2 Microglobulin, Serum 3.20(H) 1.00 - 2.50 mg/L Comment: Interpretive Data The Jose Beta-2 microglobulin assay procedure was used. Results from different manufacturers or methods may not be comparable. Serial testing should be performed using the same method. Blood 10/28/2024 2:02 PM COLD TYPE COMPOSING MACHINE OPERATOR 10/28/2024 3:24 PM COLD TYPE COMPOSING MACHINE OPERATOR Kirsten Roa NP LAB BLOOD ORDE RABLES Final Result Performing Organization Address [facility]/ZIP Co de Phone Number [facility] [place] [address] * (ABNORMAL) Comprehensive metabolic panel (10/28/2024 2:02 PM COLD TYPE COMPOSING MACHINE OPERATOR) Pathologist [facility] Sodium 144 135 - 145 mmol/L Comment:Testing performed by : [facility], [address] [place] [address] Potassium, pl 3.9 3.3 - 4.9 mmol/L [facility] Chloride 108 97 - 110 mmol/L [facility] CO2 26 22 - 32 mmol/L [facility] Anion gap 10 2 - 15 mmol/L [facility] BUN 29(H) 6 - 25 mg/dL [facility] Creatinine 0.99 0.60 - 1.10 mg/dL [facility] Glucose 106 70 - 199 mg/dL [facility] Comment: Interpretive Data Fasting glucose >/= 126 mg/dl is diagnostic for diabetes. Fasting is defined as no caloric intake for at least 8 hours. Fasting glucose between 100 mg/dl to 125 mg/dl is diagnostic of prediabetes. In a patient with classic symptoms of hyperglycemia or hyperglycemic crisis, a random glucose >/= 200 mg/dl is diagnostic for diabetes. In the absence of unequivocal hyperglycemia, results should be confirmed by repeat testing. The classification and Diagnosis of Diabetes Diabetes Care 2021; 46: S19-S40. Current interpretive data was last revised 2022. Calcium 9.1 8.5 - 10.3 mg/dL [facility] Bilirubin, total 0.2 0.1 - 1.2 mg/dL [facility] Comment:Repeated and verifie d. Protein, pl 6.7 6.5 - 8.5 g/dL [facility] Albumin 4.0 3.5 - 5.0 g/dL [facility] Alk phos 102 40 - 130 Units/L [facility] ALT 8 7 - 45 Units/L [facility] AST 12 10 - 45 Units/L [facility] Blood 10/28/2024 2:02 PM COLD TYPE COMPOSING MACHINE OPERATOR 10/28/2024 2:02 PM COLD TYPE COMPOSING MACHINE OPERATOR Kirsten Roa SAS PROGRAMMER LAB BLOOD ORDDorie TUTTLE Final Result [facility] Department [place] [address] * ANGIOGRAM (10/16/2024 3:19 PM COLD TYPE COMPOSING MACHINE OPERATOR) Anatomical Region Laterality Modality X-Ray Angiograph y Narrative 10/16/2024 7:48 PM COLD TYPE COMPOSING MACHINE OPERATOR Please see OpNote for result. Madelyn Vicente MD PhD SURGICAL CASE ORDERS F inal Result * ANGIOPLASTY BALLOON PERCUTANEOUS (10/16/2024 3:19 PM COLD TYPE COMPOSING MACHINE OPERATOR) Anatomical Region Laterality Modality X-Ray Angiograph y Narrative 10/16/2024 7:48 PM COLD TYPE COMPOSING MACHINE OPERATOR Please see OpNote for result. Madelyn Vicente MD PhD CV CARDIAC CATH PROCED URES Final Result * FL Fluoroscopy < 1 Hour (10/16/2024 2:45 PM COLD TYPE COMPOSING MACHINE OPERATOR) Narrative [facility] - 10/16/2024 2:48 PM COLD TYPE COMPOSING MACHINE OPERATOR The images from this study are not interpreted by Radiology. Please refer to the physician's procedure / OR operative note. Madelyn Vicente MD PhD IMG FLUOROSCOPY PROCED URES Final Result Performing Organization Address [facility] Co de Phone Number [email or web address] * POCT Activated clotting time, low range (10/16/2024 2:40 PM COLD TYPE COMPOSING MACHINE OPERATOR) ACT 128 123 - 168 sec POC Performer [id number] [facility] POC Device Number [id number] [facility] Blood 10/16/2024 2:40 PM COLD TYPE COMPOSING MACHINE OPERATOR 10/16/2024 2:40 PM COLD TYPE COMPOSING MACHINE OPERATOR Madelyn Vicente MD PhD LAB POCT ORDERABLES - DEVICE Final Result Performing Organization Address [facility] de Phone Number [facility] Department [place] [address] * (ABNORMAL) POCT Activated clotting time, low range (10/16/2024 2:19 PM COLD TYPE COMPOSING MACHINE OPERATOR) ACT 227(H) 123 - 168 sec POC Performer [id number] [facility] POC Device Number [id number] [facility] Blood 10/16/2024 2:19 PM COLD TYPE COMPOSING MACHINE OPERATOR 10/16/2024 2:19 PM COLD TYPE COMPOSING MACHINE OPERATOR Madelyn Vicente MD PhD LAB POCT ORDERABLES - DEVICE Final Result Performing Organization Address [facility] Co de Phone Number [facility] Department [place] [address] * Type and screen (10/16/2024 12:21 PM COLD TYPE COMPOSING MACHINE OPERATOR) Ella, indirect Negative ABO Rh A Positive [facility] Blood 10/16/2024 12:2 1 PM COLD TYPE COMPOSING MACHINE OPERATOR 10/16/2024 1:03 PM COLD TYPE COMPOSING MACHINE OPERATOR Narrative [facility] - 10/16/2024 1:50 PM COLD TYPE COMPOSING MACHINE OPERATOR Has the patient had Daratumumab or Isatuximab in the past 6 months?->Unknown Valentino Menezes MD LAB BLOOD BANK TEST ORDERABLES F inal Result Performing Organization Address [facility] Co de Phone Number [facility] Department [place] [address] * eGFR (10/11/2024 4:29 PM COLD TYPE COMPOSING MACHINE OPERATOR) Pathologist [facility] eGFR 65 >=60 mL/min/1. 73 m2 Comment: Interpretive Data Reference Interval Normal >/= 90 mL/min/1.73m2 Mildly decreased* 60 - 89 mL/min/1.73m2 Mildly to moderately decreased 45 - 59 mL/min/1.73m2 Moderately to severely decreased 30 - 44 mL/min/1.73m2 Severely decreased 15 - 29 mL/min/1.73m2 Kidney Failure < 15 mL/min/1.73m2 *Relative to young adult level Estimated glomerular filtration rate is determined by the 2020 CKD-EPI equation recommended by the National Kidney Foundation (A Unifying Approach to GFR Estimation: Recommendations of the NKF-ASK Task Force on Reassessing the Inclusion of Race in Diagnosing Kidney Disease, JASN 2020). The CKD-EPI equation should not be used for patients with unstable renal function and has not been validated in children and those over 70. Current interpretive data was last reviewed 2021. Blood 10/11/2024 4:29 PM COLD TYPE COMPOSING MACHINE OPERATOR 10/11/2024 5:01 PM COLD TYPE COMPOSING MACHINE OPERATOR Mustapha George MD LAB BLOOD ORDERABLES Final R esult Performing Organization Address [facility]/ZIP Co de Phone Number [facility] Department [place] [address] * (ABNORMAL) CBC without differential (10/11/2024 4:29 PM COLD TYPE COMPOSING MACHINE OPERATOR) WBC 14.2(H) 3.8 - 9.9 K/cumm Hgb 9.5(L) 11.9 - 15.5 g/dL [facility] Hct 33.7(L) 35.6 - 45.5 % [facility] Plt 580(H) 150 - 400 K/cumm [facility] MPV 9.8 9.1 - 12.3 fL [facility] RBC 4.64 3.90 - 5.20 M/cumm [facility] MCV 72.6(L) 81.3 - 96.4 fL [facility] MCH 20.5(L) 27.1 - 33.3 pg [facility] MCHC 28.2(L) 32.3 - 35.7 g/dL [facility] RDW CV 18.7(H) 11.1 - 14.9 % [facility] RDW SD 48.2(H) 35.7 - 48.1 fL [facility] NRBC abs 0.00 0.00 - 0.01 K/cumm [facility] Blood 10/11/2024 4:29 PM COLD TYPE COMPOSING MACHINE OPERATOR 10/11/2024 5:01 PM COLD TYPE COMPOSING MACHINE OPERATOR us Mustapha George MD LAB BLOOD ORDERABLES Final R esult [facility] Department [place] [address] * Type and screen (10/11/2024 4:29 PM COLD TYPE COMPOSING MACHINE OPERATOR) ABO Rh A Positive Ella, indirect Negative [facility] Blood 10/11/2024 4:29 PM COLD TYPE COMPOSING MACHINE OPERATOR 10/11/2024 5:30 PM COLD TYPE COMPOSING MACHINE OPERATOR Narrative [facility] - 10/11/2024 6:38 PM COLD TYPE COMPOSING MACHINE OPERATOR Has the patient had Daratumumab or Isatuximab in the past 6 months?->Unknown us Mustapha George MD LAB BLOOD BANK TEST ORDERABL ES Final Result Performing Organization Address [facility]/ZIP Co de Phone Number [facility] [place] [address] * (ABNORMAL) Basic metabolic panel (10/11/2024 4:29 PM COLD TYPE COMPOSING MACHINE OPERATOR) Sodium 146(H) 135 - 145 mmol/L Potassium, pl 3.9 3.3 - 4.9 mmol/L [facility] Chloride 108 97 - 110 mmol/L [facility] CO2 24 22 - 32 mmol/L [facility] Anion gap 14 2 - 15 mmol/L [facility] BUN 12 6 - 25 mg/dL [facility] Creatinine 1.04 0.60 - 1.10 mg/dL [facility] Glucose 82 70 - 199 mg/dL [facility] Comment: Interpretive Data Fasting glucose >/= 126 mg/dl is diagnostic for diabetes. Fasting is defined as no caloric intake for at least 8 hours. Fasting glucose between 100 mg/dl to 125 mg/dl is diagnostic of prediabetes. In a patient with classic symptoms of hyperglycemia or hyperglycemic crisis, a random glucose >/= 200 mg/dl is diagnostic for diabetes. In the absence of unequivocal hyperglycemia, results should be confirmed by repeat testing. The classification and Diagnosis of Diabetes Diabetes Care 2021; 46: S19-S40. Current interpretive data was last revised 2022. Calcium 9.3 8.5 - 10.3 mg/dL [facility] Blood 10/11/2024 4:29 PM COLD TYPE COMPOSING MACHINE OPERATOR 10/11/2024 5:01 PM COLD TYPE COMPOSING MACHINE OPERATOR us Mustapha George MD LAB BLOOD ORDERABLES Final R esult Performing Organization Address [facility]/ZIP Co de Phone Number [facility] Department [place] [address] * CTA Abdominal Aorta And Bilateral Iliofemoral Runoff (10/07/2024 1:09 PM COLD TYPE COMPOSING MACHINE OPERATOR) Anatomical Region Laterality Modality Body Bilateral Computed Tomogra phy 10/07/2024 2:47 PM COLD TYPE COMPOSING MACHINE OPERATOR Impressions 10/07/2024 2:53 PM COLD TYPE COMPOSING MACHINE OPERATOR 1. Right lower extremity: Revision of the right common femoral-popliteal artery bypass graft, with severe stenosis distally. There is single vessel arterial inflow into the right foot supplied by the posterior tibial artery, unchanged from prior. 2. 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 There is unchanged two-vessel arterial inflow into the left foot. Dictated by: Romeo Nugent MD, PHD The radiology attending physician has personally reviewed this study, and had reviewed and/or edited this written report and agrees with it. Electronically signed by: Mor Pugh M.D. Narrative 10/07/2024 2:53 PM COLD TYPE COMPOSING MACHINE OPERATOR EXAMINATION: CT ANGIOGRAPHY OF THE ABDOMEN, PELVIS, AND LOWER EXTREMITIES WITH CONTRAST HISTORY: Claudication, history of occluded right femoral-popliteal artery bypass status post thrombectomy TECHNIQUE: CT angiography of the abdomen, pelvis, and lower extremities was performed following the uneventful intravenous administration of 100 ml Optiray-350. Vascular 3D images were generated on a dedicated workstation and also reviewed. COMPARISON: CTA AIF 07/22/2024 FINDINGS: VASCULAR FINDINGS: Abdominal Aorta and Branches: Celiac axis: Unchanged occlusion with reconstitution via collateral vessels from the superior mesenteric artery SMA: no significant stenosis TY: no significant stenosis Right renal vessels: no significant stenosis Left renal vessels: no significant stenosis Infrarenal aorta: no significant stenosis. No aneurysm. Pelvic Vessels: R. Common iliac artery: no significant stenosis R. External iliac artery: no significant stenosis R. Internal iliac artery: no significant stenosis L. Common iliac artery: no significant stenosis L. External iliac artery: no significant stenosis L. Internal iliac artery: no significant stenosis Right Lower Extremity: R. Common femoral artery: Mild stenosis of the origin of the right common femoral-popliteal artery bypass graft is patent. There is an additional site of severe stenosis in the distal aspect of the graft (series 4 image 761). R. Profunda femoris artery: no significant stenosis R. Superficial femoral artery: no significant stenosis R. Popliteal artery: no significant stenosis R. Anterior tibial artery: Diminutive size, nonopacified distally R. Tibioperoneal trunk: no significant stenosis R. Posterior tibial artery: no significant stenosis R. Peroneal artery: Diminutive size, nonopacified distally R. Dorsalis pedis artery: no significant stenosis, supplied via collaterals from the posterior tibial artery R. Plantar artery: no significant stenosis Left Lower Extremity: L. Common femoral artery: no significant stenosis L. Profunda femoris artery: no significant stenosis L. Superficial femoral artery: Occluded at the origin with reconstitution distally via collaterals from the profunda femoris. L. Popliteal artery: no significant stenosis L. Anterior tibial artery: Diminutive size, nonopacified distally L. Tibioperoneal trunk: no significant stenosis L. Posterior tibial artery: no significant stenosis L. Peroneal artery: no significant stenosis L. Dorsalis pedis artery: no significant stenosis L. Plantar artery: no significant stenosis NON-VASCULAR FINDINGS: Unchanged scarring right middle lobe. The visualized bases are clear. Normal heart size with no pericardial effusion. No focal liver lesion with periportal widening and left hemiliver atrophy that may represent fibrosis/cirrhosis. Gallbladder is absent. Pancreas is normal. Unchanged bilateral adrenal adenomas. Unchanged sequela prior splenic infarcts. Kidneys enhance symmetrically with no hydronephrosis. Urinary bladder is incompletely distended. Uterus is surgically absent. No adnexal mass. There is a stool ball in the rectum with stool throughout the entirety of the colon. Scattered diverticula without evidence of diverticulitis. Small bowel and stomach are normal. No mesenteric, retroperitoneal, pelvic, or inguinal lymphadenopathy. No intra-abdominal free fluid. There is soft tissue stranding in the right groin related to prior surgery. Soft tissues and lower extremities are normal no suspicious osseous lesion. Procedure Note Mor Pugh MD PhD - 10/07/2024 EXAMINATION: CT ANGIOGRAPHY OF THE ABDOMEN, PELVIS, AND LOWER EXTREMITIES WITH CONTRAST HISTORY: Claudication, history of occluded right femoral-popliteal artery bypass status post thrombectomy TECHNIQUE: CT angiography of the abdomen, pelvis, and lower extremities was performed following the uneventful intravenous administration of 100 ml Optiray-350. Vascular 3D images were generated on a dedicated workstation and also reviewed. COMPARISON: CTA AIF 07/22/2024 FINDINGS: VASCULAR FINDINGS: Abdominal Aorta and Branches: Celiac axis: Unchanged occlusion with reconstitution via collateral vessels from the superior mesenteric artery SMA: no significant stenosis TY: no significant stenosis Right renal vessels: no significant stenosis Left renal vessels: no significant stenosis Infrarenal aorta: no significant stenosis. No aneurysm. Pelvic Vessels: R. Common iliac artery: no significant stenosis R. External iliac artery: no significant stenosis R. Internal iliac artery: no significant stenosis L. Common iliac artery: no significant stenosis L. External iliac artery: no significant stenosis L. Internal iliac artery: no significant stenosis Right Lower Extremity: R. Common femoral artery: Mild stenosis of the origin of the right common femoral-popliteal artery bypass graft is patent. There is an additional site of severe stenosis in the distal aspect of the graft (series 4 image 761). R. Profunda femoris artery: no significant stenosis R. Superficial femoral artery: no significant stenosis R. Popliteal artery: no significant stenosis R. Anterior tibial artery: Diminutive size, nonopacified distally R. Tibioperoneal trunk: no significant stenosis R. Posterior tibial artery: no significant stenosis R. Peroneal artery: Diminutive size, nonopacified distally R. Dorsalis pedis artery: no significant stenosis, supplied via collaterals from the posterior tibial artery R. Plantar artery: no significant stenosis Left Lower Extremity: L. Common femoral artery: no significant stenosis L. Profunda femoris artery: no significant stenosis L. Superficial femoral artery: Occluded at the origin with reconstitution distally via collaterals from the profunda femoris. L. Popliteal artery: no significant stenosis L. Anterior tibial artery: Diminutive size, nonopacified distally L. Tibioperoneal trunk: no significant stenosis L. Posterior tibial artery: no significant stenosis L. Peroneal artery: no significant stenosis L. Dorsalis pedis artery: no significant stenosis L. Plantar artery: no significant stenosis NON-VASCULAR FINDINGS: Unchanged scarring right middle lobe. The visualized bases are clear. Normal heart size with no pericardial effusion. No focal liver lesion with periportal widening and left hemiliver atrophy that may represent fibrosis/cirrhosis. Gallbladder is absent. Pancreas is normal. Unchanged bilateral adrenal adenomas. Unchanged sequela prior splenic infarcts. Kidneys enhance symmetrically with no hydronephrosis. Urinary bladder is incompletely distended. Uterus is surgically absent. No adnexal mass. There is a stool ball in the rectum with stool throughout the entirety of the colon. Scattered diverticula without evidence of diverticulitis. Small bowel and stomach are normal. No mesenteric, retroperitoneal, pelvic, or inguinal lymphadenopathy. No intra-abdominal free fluid. There is soft tissue stranding in the right groin related to prior surgery. Soft tissues and lower extremities are normal no suspicious osseous lesion. IMPRESSION: 1. Right lower extremity: Revision of the right common femoral-popliteal artery bypass graft, with severe stenosis distally. There is single vessel arterial inflow into the right foot supplied by the posterior tibial artery, unchanged from prior. 2. 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 There is unchanged two-vessel arterial inflow into the left foot. Dictated by: Romeo Nugent MD, PHD The radiology attending physician has personally reviewed this study, and had reviewed and/or edited this written report and agrees with it. Electronically signed by: Mor Pugh M.D. us Madelyn Vicente MD PhD IMG CT PROCEDURES Kelsea l Result * US Arterial Duplex Lower Extremity Right Limited (09/26/2024 11:38 AM COLD TYPE COMPOSING MACHINE OPERATOR) Anatomical Region Laterality Modality Vascular Right Ultrasound 09/26/2024 11:0 0 AM COLD TYPE COMPOSING MACHINE OPERATOR Narrative 09/28/2024 12:40 PM COLD TYPE COMPOSING MACHINE OPERATOR [facility] - Department of Vascular Surgery, Vascular Laboratory [address] [place] [address] Lower Extremity Arterial Duplex - Bypass Graft Report Patient Name: JEFFERY HAMILTON : 1970 Study Date: 09/26/2024 11:00:54 AM Gender: F Tech: [place] Location: [facility] Provider: MADELYN VICENTE Quality: Adequate Order Provider: MADELYN VICENTE PROCEDURES: Arterial Report: Right Femoral - [place] Popliteal Bypass Graft. INDICATIONS: I70.211 Atherosclerosis of [place] arteries of extremities with intermittent claudication, right leg and Z48.812 Encounter for surgical aftercare following surgery on the circulatory system. MEASUREMENTS: Right Value Units Rt Inflow Artery 34 cm/s Rt Proximal Anastomosis 25 cm/s Rt Proximal Graft 48 cm/s Rt Mid Graft 61 cm/s Rt Distal Graft 52 cm/s Rt Outflow Artery 18 cm/s Right Value Units - FINDINGS: Performing Sweatband Maker: Magdalene Mack RVT. Right Leg: The inflow waveform is monophasic. The proximal anastomosis waveform is monophasic. The proximal graft waveform is monophasic. The mid graft waveform is monophasic. The distal graft waveform is monophasic. Unable to assess due to dressings with open wound. The outflow waveform is monophasic. CONCLUSIONS: 1. Duplex imaging of the right lower extremity bypass graft reveals a patent graft with no flow limiting lesions identified. Flow velocities as measured above. See Ankle/Brachial Index report. HISTORY: s/p on 07/22/2024 right BPG thrombecctomy s/p on 07/01/24 Right lower extremity femoral to above knee popliteal artery bypass with ipsilateral greater saphenous vein in an in situ fashion - PREVIOUS STUDIES: Previous study on 07/15/2024. DISCLAIMER: The study images and the final report will be retained in the patient chart by the Vascular Laboratory for the legally required time period. This chart constitutes the legal record of any testing performed. ATTESTATION: I have reviewed and interpreted the pertinent images and measurements of this study. I attest to the conclusions in the final report that is provided above. Electronically Signed By: Willy Medellin MD FACS 09/28/2024 12:39:24 PM COLD TYPE COMPOSING MACHINE OPERATOR Procedure Note Willy Medellin MD - 09/28/2024 [facility] - Department of Vascular Surgery,Vascular Laboratory [address] [place] [address] Lower Extremity Arterial Duplex - Bypass Graft Report Patient Name: JEFFERY HAMILTON : 1970 Study Date: 09/26/2024 11:00:54 AM Gender: F Tech: [place] Location: [facility] Provider: MADELYN VICENTE Quality: Adequate Order Provider: MADELYN VICENTE PROCEDURES: Arterial Report: Right Femoral - [place] Popliteal Bypass Graft. INDICATIONS: I70.211 Atherosclerosis of [place] arteries of extremities withintermittent claudication, right leg and Z48.812 Encounter for surgical aftercare following surgeryon the circulatory system. MEASUREMENTS: Right Value Units Rt Inflow Artery 34 cm/s Rt Proximal Anastomosis 25 cm/s Rt Proximal Graft 48 cm/s Rt Mid Graft 61 cm/s Rt Distal Graft 52 cm/s Rt Outflow Artery 18 cm/s Right Value Units - FINDINGS: Performing Sweatband Maker: Magdalene Mack RVT. Right Leg: The inflow waveform is monophasic. The proximal anastomosis waveform ismonophasic. The proximal graft waveform is monophasic. The mid graft waveform ismonophasic. The distal graft waveform is monophasic. Unable to assess due to dressings with openwound. The outflow waveform is monophasic. CONCLUSIONS: 1. Duplex imaging of the right lower extremity bypass graft reveals apatent graft with no flow limiting lesions identified. Flow velocities as measured above.See Ankle/Brachial Index report. HISTORY: s/p on 07/22/2024 right BPG thrombecctomy s/p on 07/01/24 Right lower extremity femoral to above knee poplitealartery bypass with ipsilateral greater saphenous vein in an in situ fashion - PREVIOUS STUDIES: Previous study on 07/15/2024. DISCLAIMER: The study images and the final report will be retained in the patientchart by the Vascular Laboratory for the legally required time period. This chartconstitutes the legal record of any testing performed. ATTESTATION: I have reviewed and interpreted the pertinent images and measurements ofthis study. I attest to the conclusions in the final report that is provided above. Electronically Signed By: Willy Medellin MD [facility] 09/28/2024 12:39:24 PM COLD TYPE COMPOSING MACHINE OPERATOR Result [facility] Cindy Vicente MD PhD IMG US PROCEDURES Kelsea l Result * US Arterial Doppler Lower Extremity Bilateral (09/26/2024 11:38 AM COLD TYPE COMPOSING MACHINE OPERATOR) Anatomical Region Laterality Modality Vascular Bilateral Ultrasound 09/26/2024 11:0 3 AM COLD TYPE COMPOSING MACHINE OPERATOR Narrative 09/28/2024 12:36 PM COLD TYPE COMPOSING MACHINE OPERATOR [facility] - Department of Vascular Surgery, Vascular Laboratory [address] [place] [address] Lower Extremity Arterial Doppler Report Patient Name: JEFFERY HAMILTON : 1970 Study Date: 09/26/2024 11:03:00 AM Gender: F Tech: Magdalene Mack [place] Location: [facility] Provider: MADELYN VICENTE Quality: Adequate Order Provider: MADELYN VICENTE PROCEDURES: Arterial Report: Bilateral lower extremity arterial Doppler exam at rest. INDICATIONS: Z48.812 Encounter for surgical aftercare following surgery on the circulatory system. MEASUREMENTS: Right Value Units Left Value Units Rt Brachial Pressure 133 mmHg Lt Brachial Pressure 129 mmHg Rt MANAGER OF MAINTENANCE Pressure 66 mmHg Lt MANAGER OF MAINTENANCE Pressure 99 mmHg Rt DPA Pressure 64 mmHg Lt DPA Pressure 101 mmHg Rt 1st Digit Pressure 66 mmHg Lt 1st Digit Pressure 45 mmHg Rt PT KAROLYN Resting 0.5 Lt PT KAROLYN Resting 0.74 Rt AT KAROLYN Resting 0.48 Lt AT KAROLYN Resting 0.76 Rt Digit/Arm Index 0.5 Lt Digit/Arm Index 0.34 Right Value Units Left Value Units - FINDINGS: Performing Sweatband Maker: Magdalene Mack RVT. Right All Levels: The right common femoral, popliteal, posterior tibial and anterior tibial artery waveforms are monophasic. Right Digits: The right digit waveform is dampened. Left Common Femoral Artery Analysis: The common femoral artery waveform is multiphasic. Left Popliteal Artery Analysis: The popliteal waveform is monophasic. Left Posterior Tibial Artery Analysis: The posterior tibial waveform is monophasic. Left Anterior Tibial Artery Analysis: The anterior tibial waveform is monophasic. Left Digits: The left digit waveform is dampened. CONCLUSIONS: 1. The above listed Ankle/Brachial Indicies at rest are consistent with moderate peripheral arterial disease - claudication, bilaterally (for reference, claudication range is 0.50 -0.89). 2. Bilateral Digit/Arm Indices are abnormal (for reference, abnormal CORINA is <0.6). HISTORY: s/p on 07/22/2024 right BPG thrombectomyp s/p on 07/01/24 Right lower extremity femoral to above knee popliteal artery bypass with ipsilateral greater saphenous vein in an in situ fashion - PREVIOUS STUDIES: Previous study on 07/15/2024 (Rt 0.98, Lt 0.83). DISCLAIMER: The study images and the final report will be retained in the patient chart by the Vascular Laboratory for the legally required time period. This chart constitutes the legal record of any testing performed. ATTESTATION: I have reviewed and interpreted the pertinent images and measurements of this study. I attest to the conclusions in the final report that is provided above. Electronically Signed By: Willy Medellin MD FACS 09/28/2024 12:35:48 PM COLD TYPE COMPOSING MACHINE OPERATOR Procedure Note Willy Medellin MD - 09/28/2024 [facility] - Department of Vascular Surgery,Vascular Laboratory [address] [place] [id number] Lower Extremity Arterial Doppler Report Patient Name: JEFFERY HAMILTON : 1970 Study Date: 09/26/2024 11:03:00 AM Gender: F Tech: Magdalene Mack [facility] Location: [facility] Provider: MADELYN VICENTE Quality: Adequate Order Provider: MADELYN VICENTE PROCEDURES: Arterial Report: Bilateral lower extremity arterial Doppler exam at rest. INDICATIONS: Z48.812 Encounter for surgical aftercare following surgery on thecirculatory system. MEASUREMENTS: Right Value Units Left ValueUnits Rt Brachial Pressure 133 mmHg Lt Brachial Pressure 129mmHg Rt MANAGER OF MAINTENANCE Pressure 66 mmHg Lt MANAGER OF MAINTENANCE Pressure 99mmHg Rt DPA Pressure 64 mmHg Lt DPA Pressure 101mmHg Rt 1st Digit Pressure 66 mmHg Lt 1st Digit Pressure 45mmHg Rt PT KAROLYN Resting 0.5 Lt PT KAROLYN Resting 0.74 Rt AT KAROLYN Resting 0.48 Lt AT KAROLYN Resting 0.76 Rt Digit/Arm Index 0.5 Lt Digit/Arm Index 0.34 Right Value Units Left ValueUnits - FINDINGS: Performing Sweatband Maker: Magdalene Mack RVT. Right All Levels: The right common femoral, popliteal, posterior tibial and anterior tibialartery waveforms are monophasic. Right Digits: The right digit waveform is dampened. Left Common Femoral Artery Analysis: The common femoral artery waveform is multiphasic. Left Popliteal Artery Analysis: The popliteal waveform is monophasic. Left Posterior Tibial Artery Analysis: The posterior tibial waveform is monophasic. Left Anterior Tibial Artery Analysis: The anterior tibial waveform is monophasic. Left Digits: The left digit waveform is dampened. CONCLUSIONS: 1. The above listed Ankle/Brachial Indicies at rest are consistent withmoderate peripheral arterial disease - claudication, bilaterally (for reference,claudication range is 0.50 -0.89). 2. Bilateral Digit/Arm Indices are abnormal (for reference, abnormal DAIis <0.6). HISTORY: s/p on 07/22/2024 right BPG thrombectomyp s/p on 07/01/24 Right lower extremity femoral to above knee poplitealartery bypass with ipsilateral greater saphenous vein in an in situ fashion - PREVIOUS STUDIES: Previous study on 07/15/2024 (Rt 0.98, Lt 0.83). DISCLAIMER: The study images and the final report will be retained in the patientchart by the Vascular Laboratory for the legally required time period. This chartconstitutes the legal record of any testing performed. ATTESTATION: I have reviewed and interpreted the pertinent images and measurements ofthis study. I attest to the conclusions in the final report that is provided above. Electronically Signed By: Willy Medellin MD [facility] 09/28/2024 12:35:48 PM COLD TYPE COMPOSING MACHINE OPERATOR Madelyn Vicente MD PhD IMG US PROCEDURES Kelsea l Result from Last 3 Months Additional Health Concerns Infection Onset Date Last Indicated MDR gram neg/ESBL 07/23/2024 08/01/2024 Insurance MEDICARE SOLUTIONS [facility] MEDICARE MEDICARE SOLUTIONS Advance Directives For more information, please contact: [phone] * Full Code (Latest Code Status on File) Date Activated Date Inactivated Comments 07/23/2024 2:28 AM 08/05/2024 6:34 PM * Full Code Date Activated Date Inactivated Comments 07/15/2024 7:09 PM 07/19/2024 6:46 PM * Full Code Date Activated Date Inactivated Comments 07/03/2024 11:02 AM 07/05/2024 3:47 PM * Full Code Date Activated Date Inactivated Comments 07/03/2024 11:02 AM 07/03/2024 11:02 AM * Full Code Date Activated Date Inactivated Comments 07/03/2024 10:15 AM 07/03/2024 11:02 AM Care Teams Senior Telecommunications Engineer Relationship Specialty Start Date End Date Mor Blancas MD [address] [place] [address] PCP - General Emergency Medicine 03/25/24 Flynn Ma MD [address] [facility] [address] [place] [address] Medical Oncologist/Continuous Process Machine Operator Medical Oncology 09/28/18 Colleen Diaz MD [address] [place] [address] Referring Physician Nephrology 03/24/22 Derek Wilson MD [address] [place] [address] Referring Physician Obstetrics and Gynecology 06/26/23 Mar Jay MD [address] [place] [address] Surgeon Vascular Surgery 08/24/23 Mitch Austin DO [address] [facility] [address] [place] [address] Surgeon Surgery 09/26/23 Madelyn Vicente MD PhD [address] [facility] [id number] [place] [address] Registered Nurse Vascular Surgery 07/05/24 Eric Washington MD [address] [place] [address] Consulting Physician Plastic Surgery 07/29/24
--- OUTSIDE RECORDS SUMMARY | 2024-12-12 16:48 | XMS_ITS | Encounter Summary ---
Author Organization [facility] Address [address] [place] [address] Phone Care Team Providers Care Horticultural Worker Name Role Phone Flynn Ma MD Unavailable [phone] Colleen Diaz MD Unavailable Derek Wilson MD Unavailable [phone] Mar Jay MD Unavailable [phone] Mitch Austin DO Unavailable [phone] Mor Blancas MD Primary Care Provide r Madelyn Vicente MD PhD Unavailable [phone] Eric Washington MD Unavailable [phone] Reason for Visit * Reason Onset Date Comments Medical Question/Miscellaneous 12/04/2024 Encounter Details Date Type Department Care Team (Late st Contact Info) Description 12/04/2024 Telephone [facility] - [facility] Minimally Invasive Surgery [address] [facility] [address]th Floor, [place] [address] Mor Jain MD PhD [address] [place] [address] Medical Question/Miscellaneous Social History Tobacco Use Types Packs/Day Years Used Date Smoking Tobacco: Former Cigarettes 1 37.5 1 987 - 04/08/2024 Passive Smoke Exposure: Past Smokeless Tobacco: Never Comments:cutting down 4-6 a day Alcohol Use Standard Drinks/Week Comments No 0 (1 standard drink = 0.6 oz pur e alcohol) [facility] Utilities Answer Date Recorded In the [...] often do you attend chur ch or scientology services? Never 07/24/2024 Do you belong to any clubs o r organizations such as jewish groups, unions, fraternal or athletic groups, or [...] any time in the past 12 m [facility], were you homeless or living in a senior care (including now)? No 07/24/2024 Personal Safety Answer Date Recorded Have you ever been in or are you currently in a harmful physical or emotional relationship or is someone making you feel afraid or unsafe? Denies 10/16/2024 Comments No Sex and Gender Information Value Date Recorded Sex Assigned at Not on file 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 LABORATORY DEVELOPMENT TECHNICIAN Gender Identity Female 03/14/2022 6:19 PM CDT Sexual Orientation Not on file documented as of this encounter Miscellaneous Notes * Telephone Encounter - Airam Wills - 12/04/2024 9:33 AM CST Patient Query: Was an attempt to transfer to the assigned clinical staff or backline? Yes, no answer. Reason for call?: Jerri from [facility] ultrasound department called for a clarification on an order. This order is for MALS and to check celiac artery. Patients celiac artery is included and is colateral. Jerri is inquiring if to cancel the appointment or look at something else. Who is the caller: Jerri What is the best number for them to contact for a call back: [phone] ask for jerri RATORY DEVELOPMENT TECHNICIAN documented in this encounter Plan of Treatment Not on file documented as of this encounter Visit Diagnoses Not on filedocumented in this encounter Additional Health Concerns Infection Onset Date Last Indicated Resolved Time MDR gram neg/ESBL 07/23/2024 08/01/2024 documented as of this encounter Care Teams Horticultural Worker Relationship Specialty Start Date End Date Mro Blancas MD [address] [place] [address] PCP - General Emergency Medicine 03/25/24 Flynn Ma MD [address] [facility] [address] [place] [address] Medical Oncologist/Interventional Radiology Rn Medical Oncology 09/28/18 Colleen Diaz MD [address] [place] [address] Referring Physician Nephrology 03/24/22 Derek Wilson MD [address] [facility] [place] [address] Referring Physician Obstetrics and Gynecology 06/26/23 Mar Jay MD [address] [place] [address] Surgeon Vascular Surgery 08/24/23 Mitch Austin DO [address] [place] [address] Surgeon Surgery 09/26/23 Madelyn Vicente MD PhD [id number] [place] [address] Registered Nurse Vascular Surgery 07/05/24 Eric Washington MD [address] [place] [address] Consulting Physician Plastic Surgery 07/29/24 documented as of this encounter
--- OUTSIDE RECORDS SUMMARY | 2024-12-12 16:48 | XMS_ITS | Data Portability ---
Author Organization [facility] [place] Address [address] [place] [address] Care Team Providers Care Thread Spinner Name Role Phone MONIKA MOSS Primary Care Provider [phone] Assessment No assessment recorded. Plan of Treatment Reminders Order Date Submit Date Provider Last Modified By Organization Details Last Modified Time Details Appointments None recorded. Lab None recorded. Referral None recorded. Procedures None recorded. Surgeries total hysterecto my, laparoscop ic, with bilateral salpingo-o ophorectom y (SURG) 2022 04/17/ [address] Surgery [facility], [facility] [address], [place], [address], 15:52:32 Imaging None recorded. Medication Orders None recorded. Patient TargetsNo targets recorded. Patient InstructionsNo instructions recorded. Reason for Referral None Reported. Results Created Date Observation Date Name Description Value Unit Range Abnormal Flag Note LastModifiedBy Organization Detail LastModifiedTime Result Notes None recorded. Procedures Surgical History Date Name Laterality Status Provider Name and Address Organization Details Recorded Time 07/05/20 23 HYSTEROSCOPY, WITH ENDOMETRIAL ABLATION (SURG) completed Ofelia Marquez [facility] 07/06/2023 10:31:53 06/26/20 23 bone marrow sampling completed Naomi Perry [facility] 07/03/2023 12:43:24 12/22/19 23 HYSTEROSCOPY, WITH ENDOMETRIAL ABLATION (SURG) completed Ofelia Marquez [facility] 12/22/2022 10:38:59 12/05/19 23 Endometrial Biopsy completed Derek Wilson MD [address], [place], [address], [facility] 12/05/2022 12:02:42 11/14/19 23 Date of Last Pap Smear completed [facility] 07/03/2023 11:21:33 10/09/19 23 Transfusion bld/bld compnt completed [facility] 07/03/2023 12:48:56 07/09/20 22 bone marrow sampling completed [facility] 07/03/2023 12:43:19 10/09/19 21 kidney biopsy completed [facility] 07/03/2023 12:42:31 10/09/18 99 tonsilectomy/ad enoids completed [facility] 07/03/2023 12:42:14 Imaging Results None recorded. Procedure Notes None recorded. Medical Equipment None Reported. Allergies Allergen ID Allergen Name Allergen Category Reaction Reaction Severity Criticality Documentation Date Start Date Code Code System Note Provider Name and Address Organization Details Recorded Time tetracycl ine medicatio n other moderate Not available 11/14/2022 03307 RxNorm Yasmine toscano, [facility] 14:50:26 Medications Name Sig Start Date Stop Date Status Note LastModified by Organization Details LastModified Time atorvastati n 20 mg tablet TAKE ONE TABLET (20mg) BY MOUTH DAILY active Not Available Not Available No t Available hydrocodone 5 mg-acetamin ophen 325 mg tablet 01/18 completed Not Available Not Available Not Available sucralfate 1 gram tablet 01/31 completed Not Available Not Available Not Available clopidogrel 75 mg tablet TAKE ONE TABLET BY MOUTH DAILY AT 9AM active Not Available Not Available No t Available prochlorper azine maleate 10 mg tablet 07/03 completed Not Available Not Available Not Available allopurinol 100 mg tablet TAKE ONE TABLET (100mg) BY MOUTH TWICE DAILY active Not Available Not Available No t Available ondansetron 8 mg disintegrat ing tablet Place 1 tablet twice a day by transling ual route. 01/18 completed Not Available Not Available Not Available oxycodone-a cetaminophe n 5 mg-325 mg tablet active Not Available Not Available No t Available alprazolam 0.5 mg tablet 01/31 completed Not Available Not Available Not Available estradiol 1 mg tablet 01/31 completed Not Available Not Available Not Available cephalexin 500 mg capsule 01/18 completed Not Available Not Available Not Available pantoprazol e 40 mg tablet,adán yed release 01/31 completed Not Available Not Available Not Available progesteron e micronized 200 mg capsule Take 1 capsule every day by oral route. 07/03 completed Not Available Not Available Not Available Lupron Depot 3.75 mg intramuscul ar syringe kit Inject 3.75 mg by intramusc ular route. 01/31 completed Not Available Not Available Not Available norethindro ne acetate 5 mg tablet TAKE ONE TABLET BY MOUTH TWICE DAILY active Not Available Not Available No t Available lisinopril 40 mg tablet TAKE ONE TABLET (40mg) BY MOUTH DAILY active Not Available Not Available No t Available ondansetron 4 mg disintegrat ing tablet 01/18 completed Not Available Not Available Not Available cefdinir 300 mg capsule 01/31 completed Not Available Not Available Not Available amoxicillin 875 mg-potassiu m clavulanate 125 mg tablet 01/18 completed Not Available Not Available Not Available metoprolol tartrate 25 mg tablet TAKE ONE TABLET BY MOUTH DAILY AT 9AM active Not Available Not Available No t Available Plavix 07/03 completed Not Available Not Available Not Available allopurinol 11/14 completed Not Available Not Available Not Available metoprolol succinate 11/14 completed Not Available Not Available Not Available Eliquis 5 mg tablet TAKE ONE TABLET (FIVE MG) BY MOUTH TWICE DAILY active Not Available Not Available No t Available Gazyva 1,000 mg/40 mL intravenous solution 07/03 completed Not Available Not Available Not Available Venclexta Starting Pack 10 mg-50 mg-100 mg tablets in a dose pack 11/14 completed Not Available Not Available Not Available Venclexta 100 mg tablet 07/03 completed Not Available Not Available Not Available Vitals Date Recorded Body height Body mass index (BMI) Body weight Systolic blood pressure Diastolic blood pressure Provider Name and Address Organization Details Last Updated DateTime 07/03/2023 167.64 cm 42 kg/m2 474883.0 2 g 133 mm[Hg] 80 mm[Hg] Naomi Perry [facility] 3 12:37:39 Date Recorded Body height Body mass index (BMI) Body weight Systolic blood pressure Diastolic blood pressure Provider Name and Address Organization Details Last Updated DateTime 07/13/2023 167.64 cm 40.7 kg/m2 444995.2 8 g 136 mm[Hg] 78 mm[Hg] Sheryl Michael [facility] 3 14:07:23 Date Recorded Body height Body mass index (BMI) Body weight Systolic blood pressure Diastolic blood pressure Provider Name and Address Organization Details Last Updated DateTime 01/19/2024 167.64 cm 35.6 kg/m2 72027.76 g 162 mm[Hg] 98 mm[Hg] Caterina Ennis [facility] 4 15:49:22 Date Recorded Body height Body mass index (BMI) Body weight Systolic blood pressure Diastolic blood pressure Provider Name and Address Organization Details Last Updated DateTime 02/01/2024 167.64 cm 34.9 kg/m2 98621.95 g 127 mm[Hg] 81 mm[Hg] Angelika Matos [facility] 4 12:50:20 Social History Question Answer Notes LastModified by Organizat ion Details LastModified Time Do You Have An Advance Directive? No Information not available 11/14/2022 What Is Your Level Of Alcohol Consumption? None Information not available 11/14/2022 How Many Years Have You Consumed Alcohol? 0 Information not available 11/14/2022 Are You Blind Or Do You Have Difficulty Seeing? No Information not available 11/14/2022 What Is Your Level Of Caffeine Consumption? Moderate Information not available 11/14/2022 In The 14 Days Before Symptom Onset, Have You Had Close Contact With A Laboratory-confir med COVID-19 While That Case Was Ill? No Information not available 11/14/2022 In The 14 Days Before Symptom Onset, Have You Had Close Contact With A Person Who Is Under Investigation For COVID-19 While That Person Was Ill? No Information not available 11/14/2022 Have You Been To An Area Known To Be High Risk For COVID-19? No Information not available 11/14/2022 Are You Deaf Or Do You Have Serious Difficulty Hearing? No Information not available 11/14/2022 What Type Of Diet Are You Following? REGULAR Information not available 11/14/2022 What Is The Highest Grade Or Level Of School You Have Completed Or The Highest Degree You Have Received? 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 No Information not available 11/14/2022 Do You Use Protection During Sex? No Information not available 11/14/2022 Do You Use Your Seat Belt Or Car Seat Routinely? Yes Information not available 11/14/2022 Do You Have Smoke And Carbon Monoxide Detectors In Your Home? Yes Information not available 11/14/2022 At What Age Did You Start Smoking Tobacco? 16 Information not available 11/14/2022 How Much Tobacco Do You Smoke? 0.5 PPD Information not available 11/14/2022 Do You Feel Stressed (tense, Restless, Nervous, Or Anxious, Or Unable To Sleep At Night)? [id number] Information not available 11/14/2022 Do You Use Any Illicit Or Recreational Drugs? No Information not available 11/14/2022 Do You Use Sunscreen Routinely? No Information not available 11/14/2022 How Many Years Have You Smoked Tobacco? 30 Information not available 11/14/2022 Have You Used IV Drugs? No Information not available 11/14/2022 Sex: Unknown Functional Status Question Answer Note LastModified by Organizat ion Details LastModified Time Do you have difficulty walking or climbing stairs? No [email or web address] Information not available 07/13/2023 Are you able to walk? YESWOREST Information not available 11/14/2022 Are you able to care for yourself? Yes [email or web address] Information not available 07/13/2023 Do you have difficulty dressing or bathing? No [email or web address] Information not available 07/13/2023 What is your exercise level? None Information not available 11/14/2022 Mental Status None recorded. Family History Relationship Description Onset Age of this Age Resolved Age Notes LastModified by Organization Details LastModified Time Maternal Uncle Diabetes mellitus [email or web address] Not available 07/03 12:37:51 Unspecified Relation Diabetes mellitus [email or web address] Not available 07/03 12:37:51 Paternal Aunt Diabetes mellitus [email or web address] Not available 07/03 12:37:51 Paternal Grandmother Malignant tumor of colon [email or web address] Not available 07/03 12:37:51 Medical History Condition Response Allergies (Food, seasonal, environmental ) N Other Y Drug/Latex Allergies/Reactions Y Breast Cancer N Blood Transfusion Y Lung Disease N Dermatologic Disorders Y Defects or Inherited Disease N Breast Problem N Gestational Diabetes N Hematologic disorders Y Anesthesia Complications N History of STI N Deep Vein Thrombosis Y Polycystic ovary syndrome N Anxiety Disorder N Autoimmune disease Y Arthritis N Polyps N Infertility N History of abnormal pap N Acid Reflux (GERD) N Cancer Y Varicosities N Stroke N Neurologic/Epilepsy N Endometriosis N High Cholesterol Y Headaches N Fibromyalgia N Kidney Disease Y Heart Problems N Thyroid Problems N Kidney or Bladder Problems Y GI Problems N Eating Disorder N Anemia Y Art (IVF or FET) N Psychiatric Illness N Ovarian Cancer N Diabetes N Pulmonary (TB, Asthma) N Hepatitis/Liver Disease N No Past Medical History N Eczema N Urinary Tract Infection N Abuse/Domestic Violence N Asthma N Trauma/Violence N Depression/ depression N Heart Disease N Pre-Eclampsia N Hypertension Y Osteoporosis N Thrombophilias N Gynecological History Statement/Question Response Flow Heavy Date of LMP 10/09/2022 Y On BCP's at Conception? N STIs/STDs N Was last menstrual period normal N HPV Vaccine N Duration of Flow (days) 4 Current Control Method Partner Vas ectomy Age at First Child 29 If Post Menopausal, Age at Menopause 51 Are cycles usually normal N Frequency of Cycle (Q days) 28 Sexually Active? Y None Menses Monthly N Age of first menstrual cycle 16 Date of Last Pap Smear 11/14/2022 Sexual Problems? N LMP Approximate Desired Control Method Ablation N Obstetrics History GPAL:G 2 P 1 0 1 1 Type Value Full Term 1 Induced 1 Living 1 Total 2 Past Encounters Encounter ID Performer Location Encounter Start Date Encounter Closed Date Diagnosis/Indication Diagnosis SNOMED-CT Code Diagnosis ICD10 Code Diagnosis Note [id number] JAZMYN Prado [place] [address] [address] 11/14/2022 14:26:11 11/14/2022 17:50:32 Abnormal uterine bleeding [id number] 9100 N93.9 Today we reviewed a detailed hx, and discussed the various causes of abnormal uterine bleedingPe lvic u/s ordered, labs declined. Recently had labs one week ago with normal hgb and hct levelsShe needs to call her provider who is prescribin g her eliquis and venclexta to notify them that she has stopped these medication on her own. We discussed risk of blood clots given her missed doses - needs to notify provider KASI and come up with a plan on restarting these. She will call them after this visit.Katrin butcher pap sentSTI testing added to papUPT declinedED precaution s discussed (worsening symptoms, heavy vaginal bleeding, chest pain, SOB, leg pain, etc)u/s f/u scheduled with MD for consultDis cussed need for EMB/furthe r testing pending u/s result BP elevated. No symptoms. She will f/u with PCP for BP check. Time spent in visit is a total of 30 mins with at least 50% of visit consisting of counseling and review of plan of care. Venereal d isease screening 941838122 Z11.3 Screening for malignant neoplasm of cervix 548992250 Z12.4 [id number] Christina [facility] [address],[place] [address] 11/24/2022 16:21:13 11/24/2022 17:03:29 Abnormal uterine bleeding 0658230898 9100 N93.9 [id number] Derek Wilson MD [place] [address],[place] [address] 12/05/2022 11:00:58 12/05/2022 12:10:21 Menorrhagia 186360704 N92.0 Lesion of endometrium 92 73421425 9101 N85.9 informed patient of vulvar lesions on exam need to be removed. We talked about the ultrasound results in some detail. There is some thickening and vascularit y the endometriu m. It is markedly thickened actually for a postmenopa usal woman We agreed to perform endometria l biopsy today. We spent 20 minutes face-to-fa ce. More than 50% was counseling . We discussed the biopsy risks, benefits, and alternativ es. She tolerated the endometria l biopsy well. Was performed without complicati ons. [id number] Vibha Rocha [facility] [address],[place] [address] 12/16/2022 14:18:51 12/16/2022 15:17:41 Menorrhagia 571767447 N92.[address] Wilson today prior to patient leaving as this situation is out of my scope of practice in acuity. He has agreed to see her & continue to manage her care today.Deborah ent sent upstairs and appropriat e staff was alerted to her situation & change in provider she is seeing today. [id number] [place] [address],[place] [address] 12/16/2022 15:21:22 12/16/2022 17:46:01 Abnormal uterine bleeding 8212342312 9100 N93.9 Menorrhagia 372313469 N9 2.0 This patient is a 52-year-ol d female presents for vaginal bleeding. 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 she has been on Eliquis per recently discontinu ed it. We talked about treatment options. She has symptomati c from anemia. We agreed to admit her to the hospital. We agreed to treat with Eliquis, IV estrogen, and baby aspirin. She will get blood transfusio n. We did the developed this plan over about a 35 minute discussion . 50% was counseling . We intend to get a pelvic ultrasound while she is at the hospital. Patient has been treated with progestero ne. That has not been helpful those far. We would plan to continue the progestero ne and add the estrogen for about 10 days. We also intent plan endometria l ablation. We talked about the procedure in detail. Talked about risk benefits and alternativ es to the procedure. We agreed to move forward Anemia 323023525 D64.9 [id number] Sheryl [facility] [address],[place] [address] 12/16/2022 17:21:41 12/19/2022 15:25:58 Abnormal uterine bleeding [id number] 9100 N93.9 [id number] Derek Wilson MD [place] [address] [address] 12/29/2022 11:36:42 12/29/2022 12:27:49 Menorrhagia 814344065 N92.0 This patient is a 52-year-ol d female who presents for follow-up on menorrhagi a. We performed endometria l ablation. She has watery vaginal discharge. She is recovering normally. She is still on Eliquis. She will see her hematologi st in a few weeks. [id number] Derek Wilson MD [place] [address] [address] 04/28/2023 14:18:00 04/28/2023 15:14:24 Menorrhagia 854145606 N92.0 This patient is a 52-year-ol d female with abnormal uterine bleeding. She has been treated for menorrhagi a with endometria l ablation. We had a lengthy discussion regarding her menorrhagi a. talked about various treatment options. She came in with hysterecto my in mind. We talked about alternativ es to. We ultimately agreed to Lupron treatment. We can try norethindr one 1st and then if she fails norethindr one, then she is going to treat with Lupron. Both medication s have been sent to her pharmacy. She will follow-up in 3 months. We spent more than 20 minutes face-to-fa ce. More than 50% was counseling [id number] Derek Wilson MD [place] [address],[place] [address] 06/15/2023 16:14:22 06/16/2023 12:28:34 Menorrhagia [id number] N92.0 52-year-ol d female with severe menorrhagi a. She has a previous endometria l ablation. She would like to repeat ablation. I discussed the risk. She understand s that it is off-label. We agreed to move forward with endometria l ablation. She does not tolerate medical therapy and was not ready to have hysterecto my. She is hoping to use this to get to menopause and not have any bleeding in the more. [id number] Derek Wilson MD [place] [address],[place] [address] 07/03/2023 12:24:04 07/03/2023 14:53:16 Menorrhagia 616474138 N92.0 this patient is a 52-year-ol d female with menorrhagi a. We have agreed to perform endometria l ablation. She understand s the risks, benefits, and alternativ es. She has completed the informed consent process is ready to proceed. [id number] Linda Acevedo [place] [address],[place] [address] 07/06/2023 09:59:17 07/06/2023 10:00:03 [id number] Derek Wilson MD [place] [address],[place] [address] 07/13/2023 13:45:09 07/13/2023 14:34:11 Abnormal uterine bleeding 4422241438 9100 N93.9 Menorrhagia 634346951 N9 2.0 this patient is a 52-year-ol d female with severe menorrhagi a. She has failed medical treatments . It has been difficult to control her bleeding at all. She bleeds very heavy at a dangerous rate. She became severely anemic. She was admitted the hospital for transfusio n. While in the hospital endometria l ablation was performed. She has continued to bleed since the ablation. The patient would like to proceed with hysterecto my. Talked about hysterecto my in detail. We spent 40 minutes face-to-fa ce discussing the details of hysterecto my, her bleeding, treatment options. We made a decision to perform surgery. We will perform total laparoscop ic hysterecto my bilateral salpingo-o ophorectom y. [id number] Derek Wilson MD [place] [address] [address] 01/19/2024 15:42:39 01/20/2024 10:38:12 Menorrhagia [id number] N92.0 this patient is a 52-year-ol d female with severe menorrhagi a. We will perform total laparoscop ic hysterecto my bilateral salpingo-o ophorectom y. she understand s the risks, benefits, and alternativ es. She is completed the informed consent process and is ready to proceed. [id number] Derek Wilson MD [place] [address] [address] 02/01/2024 12:42:03 02/01/2024 16:24:50 Postoperative care 440557579 Z48.89 female Patient presents for postop follow-up. She is 1 week postop from a total laparoscop ic hysterecto my bilateral salpingo oophorecto my. She has no complaints . Her incisions are clean dry and intact. She is recovering normally. She will follow-up as needed. Health Concerns Section Related Observation LastModified by Organization Detai ls LastModified Time None Recorded Concern Status LastModified by Organization Details LastModified Time None Recorded Advance Directives Directive N: Payers Encounter Date Sequence Insurance Name Policy Number Policy Blanco Covered Member ID Blanco Member ID Guarantor Name 07/03/2023 1 [facility] (MEDICARE REPLACEMENT/A DVANTAGE - PPO) [id number] Nicole Hamilton [id number] Nicole Hamilton 07/03/2023 2 [place] Nicole Hamilton [id number] Nicole Hamilton 07/05/2023 1 [facility] (MEDICARE REPLACEMENT/A DVANTAGE - PPO) [id number] Nicole A Soens [id number] Nicole Soens 07/05/2023 2 [place] [facility] Nicole A Soens [id number] Nicole Soens 07/13/2023 1 [facility] (MEDICARE REPLACEMENT/A DVANTAGE - PPO) [id number] Nicole A Soens [id number] Nicole Soens 07/13/2023 2 [place] [facility] Nicole A Soens [id number] Nicole Soens 01/19/2024 1 [facility] (MEDICARE REPLACEMENT/A DVANTAGE - PPO) [id number] Nicole A Soens [id number] Nicole Soens 02/01/2024 1 [facility] (MEDICARE REPLACEMENT/A DVANTAGE - PPO) [id number] Nicole A Soens [id number] Nicole Soens Notes Date Note Type Note Provider Name and Address Organization Details Recorded Time 07/03/2023 text/html this patient is a 52-year-old female who presents for follow-up on abnormal uterine bleeding. The patient has continued to bleed despite the use of Depo Lupron and endometrial ablation. She has some fibroids within her uterus. we have agreed repeat endometrial ablation. She knows that it is off-label. She understands the procedure It has been described to her in detail. she understands there is risks. She understands injury make her the result of hospitalization, more surgery and severe illness. She understands the risk of hemorrhage infection Derek Wilson MD [address], [place], [address], [facility] 07/03/2023 14:48:46 07/13/2023 text/html this patient is a 52-year-old female with severe menorrhagia. She has failed medical treatments. It has been difficult to control her bleeding at all. She bleeds very heavy at a dangerous rate. She became severely anemic. She was admitted the hospital for transfusion. While in the hospital endometrial ablation was performed. She has continued to bleed since the ablation. The patient would like to proceed with hysterectomy. Talked about hysterectomy in detail. We spent 40 minutes [id number] discussing the details of hysterectomy, her bleeding, treatment options. We made a decision to perform surgery. We will perform total laparoscopic hysterectomy bilateral salpingo-oophorect daisy. Derek Wilson MD [address], [place], [address], [facility] 07/13/2023 14:34:01 01/19/2024 text/html 53-year-old fema le with severe menorrhagia. We agreed to perform laparoscopic total hysterectomy with bilateral salpingo-oophorect daisy. The patient understands the procedure. The procedure was described to the patient in great detail. the patient also understands the risks. The risks were also explained in detail. She understands that injuries May occur during surgery. She understands these injuries can result in hospitalization, more surgery, and severe illness. She understands there is risk of hemorrhage and infection. Derek Wilson MD [address], [place], [address], [facility] 01/19/2024 16:47:26 02/01/2024 text/html female Patient presents for postop follow-up. She is 1 week postop from a total laparoscopic hysterectomy bilateral salpingo oophorectomy. She has no complaints. Her incisions are clean dry and intact. She is recovering normally. She will follow-up as needed. Derek Wilson MD [address], [place], [address], [facility] 02/01/2024 16:05:40 OBGyn Episode Ob Episode Information Episode Created Date Number of Fetuses Patient Bloodtype Patient rh Status Prepregnancy Weight lbs Domestic Partner Domestic Partner Phone 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 11/14/19 23 1 CLOSED Fetus Data First Name Last Name Admitted to NICU Weight (g) Sex Living Outcome Pediatric Complications Fetus ID Race Codes Race Delivery Type 3231.84 3 F Prematur e [id number] Vaginal Delivery Vijay Calculation Initial Vijay Date Initial Exam Date Initial Exam Provider Initial Ultrasound Date Last Menstrual Period Date Ultra Sound Weeks Gestation 0 Eighteen To Twenty Week Vijay Update Ultra Sound Date Fundal Height At Umbil Quickening Date Ultra Sound Latest Weeks Gestation Final Vijay Confirmed By Final Vijay Confirmed Date Final Vijay Date Ultra Sound Latest Days Gestation 0 0 Menstrual History Last Menstrual Date Menses Monthly On Bcp Conception Prior Menses Frequency Hcg Plus Date Menarche Onset Age Delivery Information Delivery Date Delivery Type Labor Anesthesia Weeks Gestation Incision Type Labor Labor Length Hrs Delivered By Post Complications Tubal Sterilization Discharge Date Comments 9 36 Discharge Information Feeding Method Contraceptive Method Maternal HG B and HCT Levels Ob Episode Information Episode Created Date Number of Fetuses Patient Bloodtype Patient rh Status Prepregnancy Weight lbs Domestic Partner Domestic Partner Phone 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 07/03/20 23 1 CLOSED Fetus Data First Name Last Name Admitted to NICU Weight (g) Sex Living Outcome Pediatric Complications Fetus ID Race Codes Race Delivery Type , Induced [id number] Vijay Calculation Initial Vijay Date Initial Exam Date Initial Exam Provider Initial Ultrasound Date Last Menstrual Period Date Ultra Sound Weeks Gestation 0 Eighteen To Twenty Week Vijay Update Ultra Sound Date Fundal Height At Umbil Quickening Date Ultra Sound Latest Weeks Gestation Final Vijay Confirmed By Final Vijay Confirmed Date Final Vijay Date Ultra Sound Latest Days Gestation 0 0 Menstrual History Last Menstrual Date Menses Monthly On Bcp Conception Prior Menses Frequency Hcg Plus Date Menarche Onset Age Delivery Information Delivery Date Delivery Type Labor Anesthesia Weeks Gestation Incision Type Labor Labor Length Hrs Delivered By Post Complications Tubal Sterilization Discharge Date Comments 0 Discharge Information Feeding Method Contraceptive Method Maternal HG B and HCT Levels
--- OUTSIDE RECORDS SUMMARY | 2024-12-12 16:48 | XMS_ITS | Referral Summary ---
Author Organization [facility] Address [address] [place] [address] Care Team Providers Care Cryptographic Technician Name Role Phone Flynn Ma MD Unavailable Colleen Diaz MD Unavailable Derek Wilson MD Unavailable [phone] Mar Jay MD Unavailable Mitch Austin DO Unavailable [phone] Mor Blancas MD Primary Care Provide r Madelyn Vicente MD PhD Unavailable [phone] Eric Washington MD Unavailable [phone] Encounters Date Type Department Care Team Description 12/12/2024 Telephone [facility] Vascular Surgery [address] [facility] Medical Office Building 3 [address] [place] [address] Franco Robertson, Artemio 12/04/2024 Telephone [facility]) - [facility] Minimally Invasive Surgery [facility] 12th Floor, [place] [address] Mor Jain MD PhD Medical Question/Miscellane ous 11/27/2024 10:15 AM CRYOGENIC TRANSPORT DRIVER Ancillary Procedure [facility] Vascular Lab at the [place] [address] [facility] 8th [place] [address] [place] [address] Encounter for surgical aftercare following surgery on the circulatory system; PAD (peripheral artery disease); Presence of other vascular implants and grafts 11/27/2024 11:00 AM CRYOGENIC TRANSPORT DRIVER Office Visit [facility] Surgery [address] [facility] 8th [place] [address] [place] [address] Madelyn Vicente MD PhD Encounter for surgical aftercare following surgery on the circulatory system (Primary Dx) 11/25/2024 Orders Only [facility] Surgery [address] [facility] Floor 1 [place] [address] Madelyn Vicente MD PhD Encounter for surgical aftercare following surgery on the circulatory system (Primary Dx); Presence of other vascular implants and grafts 11/21/2024 Telephone [facility] ([facility]) [facility] Minimally Invasive Surgery [address] [facility] 12th Floor, [place] [address] Mor Jain MD PhD Medical Question/Miscellane ous 11/11/2024 1:00 PM CRYOGENIC TRANSPORT DRIVER Infusion [address] [address] Iron deficiency anemia, unspecified iron deficiency anemia type (Primary Dx); Anemia, unspecified type 11/04/2024 Telephone [facility]) [facility] Minimally Invasive Surgery [address] [facility] 12th Floor, [place] [address] Mor Jain MD PhD Scheduling Appointments 11/04/2024 1:00 PM CRYOGENIC TRANSPORT DRIVER Infusion [address] [address] Iron deficiency anemia, unspecified iron deficiency anemia type (Primary Dx); Anemia, unspecified type 10/30/2024 Orders Only [facility] Oncology [facility] Floor 6 [place] [address] Mireya Briceno RN 10/30/2024 Orders Only [facility] Oncology [address] [facility] Floor 6 [place] [address] Mireya Briceno RN 10/29/2024 Orders Only [facility] Oncology [address] [facility] Floor 6 [place] [address] Kirsten Roa NP Anemia, unspecified type (Primary Dx) 10/28/2024 2:30 PM CRYOGENIC TRANSPORT DRIVER Lab [facility] [address] [place] [address] Chronic lymphoid leukemia, without mention of having achieved remission(204.10) (HCC) 10/28/2024 3:15 PM CRYOGENIC TRANSPORT DRIVER Office Visit [facility] Oncology [address] [place] [address] Kirsten Roa NP Chronic lymphoid leukemia, without mention of having achieved remission(204.10) (HCC) (Primary Dx); Anemia, unspecified type 10/23/2024 Telephone [facility] Surgery [address] [facility] 6th [place] [address] [place] [address] Aracelis Purcell NP 10/18/2024 Orders Only [facility] Surgery [address] [facility] 2nd Floor [address] [place] [address] Madelyn Vicente MD PhD Encounter for surgical aftercare following surgery on the circulatory system (Primary Dx); PAD (peripheral artery disease) 10/16/2024 12:20 PM CRYOGENIC TRANSPORT DRIVER - 10/16/2024 4:15 PM CRYOGENIC TRANSPORT DRIVER Surgery [facility] Operating Room 1 [place] [address] Madelyn Vicente MD PhD Angiogram 10/16/2024 12:34 PM CRYOGENIC TRANSPORT DRIVER Anesthesia Event [facility] Operating Room 1 [place] [address] Valentino Menezes MD 10/16/2024 9:18 AM CRYOGENIC TRANSPORT DRIVER - 10/16/2024 6:50 PM CRYOGENIC TRANSPORT DRIVER Hospital Encounter [facility] Operating Room 1 [place] [address] Madelyn Vicente MD PhD PAD (peripheral artery disease) Discharge Disposition: Discharge to home or self care 10/14/2024 Telephone [facility] Surgery [address] [facility] Floor 1 [place] [address] Madelyn Vicente MD PhD 10/11/2024 11:59 PM CRYOGENIC TRANSPORT DRIVER Anesthesia Event [facility] Operating Room 1 [place] [address] Mustapha George MD 10/11/2024 2:00 PM CRYOGENIC TRANSPORT DRIVER Pre-Admission Testing [facility] for Preoperative Assessment and Planning [facility] ([facility]) [address] [place] [address] Preoperative testing (Primary Dx) 10/07/2024 Documentation [facility] Vascular Surgery [address] [place] [address] Medical Office Building 3 [address] [facility] [place] [address] Madelyn Vicente MD PhD 10/07/2024 12:44 PM CRYOGENIC TRANSPORT DRIVER - 10/07/2024 11:59 PM CRYOGENIC TRANSPORT DRIVER Hospital Encounter [facility] [address] [place] [address] PAD (peripheral artery disease) Discharge Disposition: Discharge to home or self care 10/07/2024 10:15 AM CRYOGENIC TRANSPORT DRIVER Office Visit [facility] Vascular Surgery [address] [place] [address] Medical Office Building 3 [address] [place] [address] Madelyn Vicente MD PhD PAD (peripheral artery disease) (Primary Dx) 09/26/2024 11:00 AM CRYOGENIC TRANSPORT DRIVER Ancillary Procedure [facility] Vascular Lab at the [facility] [address] [place] [address] 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, right leg 09/23/2024 10:45 AM CRYOGENIC TRANSPORT DRIVER Office Visit [facility] Surgery [address] [place] [address] 6th [place] [address] [place] [address] Aracelis Purcell NP Acute lower limb ischemia (Primary Dx) from Last 3 Months Allergies Active Allergy Reactions Criticality Noted Date Comments Gentian Patricia Blisters High 09/22/2021 Medications allopurinoL (ZYLOPRIM) 100 mg tabletIndications :prevention of acute gout attack Take 1 tablet (100 mg total) by mouth 2 (two) times a day Active atorvastatin (LIPITOR) 20 mg tabletIndications :hyperlipidemia Take 1 tablet (20 mg total) by mouth every morning Active ondansetron ODT (ZOFRAN-ODT) 4 mg disintegrating [...] (two) times a day 60 tablet 3 2024 Active metoprolol XL (TOPROL-XL) 50 mg [...] by mouth 2 (two) times a day 12/09/2 024 Active Eliquis 5 mg tablet TAKE ONE [...] 07/02/2024 Assessment & Plan (10/16/2024 2:41 PM CRYOGENIC TRANSPORT DRIVER): Has chronic abdominal pain due to likely [...] 07/01/2024 Assessment & Plan (10/16/2024 2:42 PM CRYOGENIC TRANSPORT DRIVER): Hx RLE arterial occlusion/DVT 07/2023; h/o splenic [...] 07/01/2024 Assessment & Plan (10/16/2024 2:40 PM CRYOGENIC TRANSPORT DRIVER): Patient with previous right lower extremity bypass [...] 07/22: emergent OR s/p thrombectomy of R SHIP UNLOADER, bypass graft, below knee popliteal. R groin [...] lateral thigh PRS: Prolene sutures. Daily vaseline, JAI. Wound vac to thigh replaced Assessment & [...] 06/26/2023. Held Plavix/Eliquis due to bleeding. - World Designer consult on 08/08 - Hold home medication [...] 2016, in remission April 2023. Follows with [facility]. Resolved Problems Problem Noted Date Diagnosed Date Resolved Date Urinary tract infection 08/07/2023 06/0 12/2023 Overview (08/07/2023): Recently hospitalized at [facility] for pyelonephritis. Discharged on Keflex (08/01-08/10). - Continue cephalexin 500 mg BID. Assessment & Plan (08/07/2023 10:53 PM CDT): Recently hospitalized at [facility] for pyelonephritis. Discharged on Keflex (08/01-08/10). - Continue cephalexin 500 mg BID. Flu vaccine need 09/07/2022 08/07/2023 Dehydration 06/27/2022 08/07/2023 Immunocompromised 05/18/2022 08/07/2023 Immunizations Immunization Administration Dates Next Due Influenza, Quadrivalent, Karissa l Culture-based MDCK, Preservative Free, Antibiotic Free, Intramuscular 09/07/2022 Social History Tobacco Use Types Packs/Day Years Used Date Smoking Tobacco: Former Cigarettes 1 37.5 1 987 - 04/08/2024 Passive Smoke Exposure: Past Smokeless Tobacco: Never Tobacco Cessation:Counseling Given: Not Answered Comments:cutting down 4-6 a day Alcohol Use Standard Drinks/Week Comments No 0 (1 standard drink = 0.6 oz pur e alcohol) [facility] Utilities Answer Date Recorded In the past 12 months has th e Global Weather, gas, oil, or water [employer] threatened to shut off services in your [...] week 07/24/2024 How often do you attend [facility] or jehovah's witness services? Never 07/24/2024 Do you belong to any clubs o r organizations such as religious groups, unions, fraternal or athletic groups, or [...] any time in the past 12 [facility], were you homeless or living in a fpc (including now)? No 07/24/2024 Personal Safety Answer Date Recorded Have you ever been in or are you currently in a harmful physical or emotional relationship or is someone making you feel afraid or unsafe? Denies 10/16/2024 Comments No Sex and Gender Information Value Date Recorded Sex Assigned at Not on file 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 CRYOGENIC TRANSPORT DRIVER Gender Identity Female 03/14/2022 6:19 PM CDT Sexual Orientation Not on file Last Filed Vital Signs Vital Sign Reading Time Taken Comments Blood Pressure 136/73 11/27/2024 10:59 AM CRYOGENIC TRANSPORT DRIVER Pulse 54 11/27/2024 10:59 AM CRYOGENIC TRANSPORT DRIVER Temperature 36.6 C (97.9 F) 11/11/2024 1:41 PM CRYOGENIC TRANSPORT DRIVER Respiratory Rate 16 11/11/2024 1:51 PM CRYOGENIC TRANSPORT DRIVER Oxygen Saturation 97% 11/27/2024 10:59 AM CRYOGENIC TRANSPORT DRIVER Inhaled Oxygen Concentration - - Weight 97.1 kg (214 lb) 11/27/2024 10:59 AM CRYOGENIC TRANSPORT DRIVER Height 162.6 cm (5' 4 ) 11/27/2024 10:59 AM CRYOGENIC TRANSPORT DRIVER Body Mass Index 36.73 11/27/2024 10:59 AM CRYOGENIC TRANSPORT DRIVER Plan of Treatment Not on file Medical Devices Implanted Type Area Plant Reliability Engineer Device Identifier Shelf Expiration Date Model / Serial / Lot Simple Car Wash Riki Patch Vascuguard 0.88cm [id number] - [id number] Implanted:Qty : 1 on 07/01/2024 by Madelyn Vicente MD PhD at [facility] Other - see comments Right: Common Femoral Artery Aguayo SAFCell [id number] 10/02/2025 [id number] / / [id number] [employer] Restrata Mini Matrix 100mg Micronized Powder Rmini-100 - [id number] Implanted:Qty : 1 on 07/16/2024 by Madelyn Vicente MD PhD at [facility] Right: Groin [employer] 07/11/2025 [id number]-10 0 / / [id number] Aguayo SAFCell Patch Vascuguard 0.88cm [id number] - [id number] - [id number] Implanted:Qty : 1 on 07/22/2024 by Madelyn Vicente MD PhD at [facility] Right: Knee Aguayo SAFCell [id number] 02/19/2026 [id number] / [id number] / [id number] Procedures Procedure Name Priority Date/Time Associated Diagnosis Comments US ARTERIAL DUPLEX LOWER EXTREMITY RIGHT LIMITED Routine 11/27/2024 11:09 AM CRYOGENIC TRANSPORT DRIVER Encounter for surgical aftercare following surgery on the circulatory system Presence of other vascular implants and grafts US ARTERIAL DOPPLER LOWER EXTREMITY BILATERAL Routine 11/27/2024 11:09 AM CRYOGENIC TRANSPORT DRIVER Encounter for surgical aftercare following surgery on the circulatory system PAD (peripheral artery disease) IRON PROFILE W/ IBC Routine 10/28/2024 2 :02 PM CRYOGENIC TRANSPORT DRIVER Chronic lymphoid leukemia, without mention of having achieved remission(204.10) (HCC) FERRITIN Routine 10/28/2024 2:02 PM CRYOGENIC TRANSPORT DRIVER Chronic lymphoid leukemia, without mention of having achieved remission(204.10) (HCC) EGFR Routine 10/28/2024 2:02 PM CRYOGENIC TRANSPORT DRIVER Chronic lymphoid leukemia, without mention of having achieved remission(204.10) (HCC) DIFFERENTIAL AUTO Routine 10/28/2024 2:0 2 PM CRYOGENIC TRANSPORT DRIVER Chronic lymphoid leukemia, without mention of having achieved remission(204.10) (HCC) BETA 2 MICROGLOBULIN SERUM Routine 10/28/2024 2:02 PM CRYOGENIC TRANSPORT DRIVER Chronic lymphoid leukemia, without mention of having achieved remission(204.10) (HCC) CBC WITH AUTO DIFFERENTIAL Routine 10/28/2024 2:02 PM CRYOGENIC TRANSPORT DRIVER Chronic lymphoid leukemia, without mention of having achieved remission(204.10) (HCC) COMPREHENSIVE METABOLIC PANEL Routine 10/28/2024 2:02 PM CRYOGENIC TRANSPORT DRIVER Chronic lymphoid leukemia, without mention of having achieved remission(204.10) (HCC) LACTATE DEHYDROGENASE Routine 10/28/2024 2:02 PM CRYOGENIC TRANSPORT DRIVER Chronic lymphoid leukemia, without mention of having achieved remission(204.10) (HCC) CV HYBRID ROOM (DEFAULT ORDERABLE) Routine 10/16/2024 3:19 PM CRYOGENIC TRANSPORT DRIVER PAD (peripheral artery disease) VASCULAR SURGERY PROCEDURE Routine 10/16/2024 3:19 PM CRYOGENIC TRANSPORT DRIVER PAD (peripheral artery disease) FL FLUOROSCOPY < 1 HOUR IP Routine 10/16/2024 2:45 PM CRYOGENIC TRANSPORT DRIVER POCT ACTIVATED CLOTTING TIME, LOW RANGE Routine 10/16/2024 2:40 PM CRYOGENIC TRANSPORT DRIVER POCT ACTIVATED CLOTTING TIME, LOW RANGE Routine 10/16/2024 2:19 PM CRYOGENIC TRANSPORT DRIVER TYPE AND SCREEN STAT 10/16/2024 12:21 PM CRYOGENIC TRANSPORT DRIVER EGFR Routine 10/11/2024 4:29 PM CRYOGENIC TRANSPORT DRIVER Preoperative testing CBC WITHOUT DIFFERENTIAL Routine 10/11/2024 4:29 PM CRYOGENIC TRANSPORT DRIVER Preoperative testing BASIC METABOLIC PANEL Routine 10/11/2024 4:29 PM CRYOGENIC TRANSPORT DRIVER Preoperative testing TYPE AND SCREEN Routine 10/11/2024 4:29 PM CRYOGENIC TRANSPORT DRIVER Preoperative testing CTA ABDOMINAL AORTA AND BILATERAL ILIOFEMORAL RUNOFF Schedule Routine, Read Routine (OP Routine) 10/07/2024 1:09 PM CRYOGENIC TRANSPORT DRIVER PAD (peripheral artery disease) US ARTERIAL DUPLEX LOWER EXTREMITY RIGHT LIMITED Schedule Routine, Read Routine (OP Routine) 09/26/2024 11:38 AM CRYOGENIC TRANSPORT DRIVER Atherosclerosis of eklutna arteries of extremities with intermittent claudication, right leg Encounter for surgical aftercare following surgery on the circulatory system US ARTERIAL DOPPLER LOWER EXTREMITY BILATERAL Schedule Routine, Read Routine (OP Routine) 09/26/2024 11:38 AM CRYOGENIC TRANSPORT DRIVER Encounter for surgical aftercare following surgery on the circulatory system from Last 3 Months Results * US Arterial Duplex Lower Extremity Right Limited (11/27/2024 11:09 AM CRYOGENIC TRANSPORT DRIVER) Anatomical Region Laterality Modality Vascular Right Ultrasound 11/27/2024 10:0 6 AM CRYOGENIC TRANSPORT DRIVER Narrative 11/27/2024 6:44 PM CRYOGENIC TRANSPORT DRIVER [facility] - Department of Vascular Surgery, Vascular Laboratory [address] [place] [address] Lower Extremity Arterial Duplex - Bypass Graft Report Patient Name: JEFFERY HAMILTON : 1970 Study Date: 11/27/2024 10:06:16 AM Gender: F Tech: IN Location: [facility] Ref Provider: MADELYN VICENTE Quality: Adequate Order [...] 47 cm/s Right Value Units FINDINGS: Performing Displayer Merchandise: Dolores Pablo RVT. Right Leg: The inflow [...] Bharath Cortez MD FACS 11/27/2024 5:45:35 PM CRYOGENIC TRANSPORT DRIVER Procedure Note Bharath Cortez MD - 11/27/2024 [facility] - Department of Vascular Surgery,Vascular Laboratory [address] [place] [address] Lower Extremity Arterial Duplex - Bypass Graft Report Patient Name: JEFEFRY HAMILTON : 1970 Study Date: 11/27/2024 10:06:16 AM Gender: F Tech: [place] Location: [facility] Provider: MADELYN VICENTE Quality: Adequate Order Provider: MADELYN VICENTE PROCEDURES: Arterial Report: Femoral - AK Popliteal Bypass Graft. INDICATIONS: Z48.812 Encounter for surgical aftercare following surgery on thecirculatory system and Z95.828 Presence of other vascular implants and grafts. MEASUREMENTS: Right Value Units Rt Inflow Artery 72 cm/s Rt Proximal Anastomosis 44 cm/s Rt Proximal Graft 53 cm/s Rt Mid Graft 78 cm/s Rt Distal Graft 428 cm/s Rt Distal Anastomosis 91 cm/s Rt Outflow Artery 47 cm/s Right Value Units FINDINGS: Performing Displayer Merchandise: Dolores Pablo RVT. Right Leg: The inflow [...] above. Electronically Signed By: Bharath Cortez MD [facility] 11/27/2024 5:45:35 PM CRYOGENIC TRANSPORT DRIVER us Madelyn Vicente MD PhD IMG US PROCEDURES Kelsea l Result * US Arterial Doppler Lower Extremity Bilateral (11/27/2024 11:09 AM CRYOGENIC TRANSPORT DRIVER) Anatomical Region Laterality Modality Vascular Bilateral Ultrasound 11/27/2024 10:2 5 AM CRYOGENIC TRANSPORT DRIVER Narrative 11/27/2024 6:44 PM CRYOGENIC TRANSPORT DRIVER [facility] - Department of Vascular Surgery, Vascular Laboratory [address] [place] [address] Lower Extremity Arterial Doppler Report Patient Name: JEFFERY HAMILTON : 1970 Study Date: 11/27/2024 10:25:00 AM Gender: F Tech: Dolores Pablo Toma Location: [facility] Provider: MADELYN VICENTE Quality: Adequate Order Provider: MADELYN VICENTE PROCEDURES: Arterial Report: Bilateral lower extremity arterial Doppler exam at rest. INDICATIONS: Z48.812 Encounter for surgical aftercare following surgery on the circulatory system and I73.9 Peripheral vascular disease, unspecified. MEASUREMENTS: Right Value Units Left Value Units Rt Brachial Pressure 144 mmHg Lt Brachial Pressure 153 mmHg Rt GERIATRIC NURSE ASSISTANT Pressure 131 mmHg Lt GERIATRIC NURSE ASSISTANT Pressure 131 mmHg Rt DPA Pressure 127 mmHg Lt DPA Pressure 125 mmHg Rt 1st Digit Pressure 90 mmHg Lt 1st Digit Pressure 75 mmHg Rt PT KAROLYN Resting 0.86 Lt PT KAROLYN Resting 0.86 Rt AT KAROLYN Resting 0.83 Lt AT KAROLYN Resting 0.82 Rt Digit/Arm Index 0.59 Lt Digit/Arm Index 0.49 Right Value Units Left Value Units FINDINGS: Performing Displayer Merchandise: Dolores Pablo RVT. Right Common Femoral Artery [...] Bharath Cortez MD FACS 11/27/2024 5:46:29 PM CRYOGENIC TRANSPORT DRIVER Procedure Note Bharath Cortez MD - 11/27/2024 [facility] - Department of Vascular Surgery,Vascular Laboratory [address] [place] [address] Lower Extremity Arterial Doppler Report Patient Name: JEFFERY HAMILTON : 1970 Study Date: 11/27/2024 10:25:00 AM Gender: F Tech: Dolores Pablo Toma Location: [facility] Ref Provider: MADELYN VICENTE Quality: Adequate Order Provider: MADELYN VICENTE PROCEDURES: Arterial Report: Bilateral lower extremity arterial Doppler exam at rest. INDICATIONS: Z48.812 Encounter for surgical aftercare following surgery on thecirculatory system and I73.9 Peripheral vascular disease, unspecified. MEASUREMENTS: Right Value Units Left Value Units Rt Brachial Pressure 144 mmHg Lt Brachial Pressure 153 mmHg Rt GERIATRIC NURSE ASSISTANT Pressure 131 mmHg Lt GERIATRIC NURSE ASSISTANT Pressure 131 mmHg Rt DPA Pressure 127 mmHg Lt DPA Pressure 125 mmHg Rt 1st Digit Pressure 90 mmHg Lt 1st Digit Pressure 75 mmHg Rt PT KAROLYN Resting 0.86 Lt PT KAROLYN Resting 0.86 Rt AT KAROLYN Resting 0.83 Lt AT KAROLYN Resting 0.82 Rt Digit/Arm Index 0.59 Lt Digit/Arm Index 0.49 Right Value Units Left Value Units FINDINGS: Performing Displayer Merchandise: Dolores Pablo RVT. Right Common Femoral Artery [...] above. Electronically Signed By: Bharath Cortez MD [facility] 11/27/2024 5:46:29 PM CRYOGENIC TRANSPORT DRIVER [facility] Cindy Vicente MD PhD IMG US PROCEDURES Kelsea l Result * eGFR (10/28/2024 2:02 PM CRYOGENIC TRANSPORT DRIVER) eGFR 69 >=60 mL/min/1. 73 m2 Comment: [...] last reviewed 2021. Blood 10/28/2024 2:02 PM CRYOGENIC TRANSPORT DRIVER 10/28/2024 2:02 PM CRYOGENIC TRANSPORT DRIVER Kirsten Roa NP LAB BLOOD [place]ETTE TUTTLE Final Result [facility] Department [place] [address] * (ABNORMAL) Differential, auto (10/28/2024 2:02 PM CRYOGENIC TRANSPORT DRIVER) Neutrophil abs 11.4(H) 1.5 - 6.5 K/cumm Comment:Testing performed by : [facility], [address] [place] [address] Imm gran abs 0.1 0.0 - 0.1 K/cumm [facility] Lymphocyte abs 4.6(H) 0.8 - 3.3 K/cumm [facility] Monocyte abs 0.9(H) 0.2 - 0.8 K/cumm [facility] Eosinophil abs 0.3 0.0 - 0.5 K/cumm [facility] Basophil abs 0.1 0.0 - 0.1 K/cumm [facility] Neutrophil pct 65.8 % [facility] Comment: Interpretive Data Percent cell count reference ranges are not reported, since discordance with absolute values may lead to misinterpretation of CBC data. Current Interpretive Data was last revised on 2018. Imm gran pct 0.5 % [facility] Comment: Interpretive Data Percent cell count reference ranges are not reported, since discordance with absolute values may lead to misinterpretation of CBC data. Current Interpretive Data was last revised on 2018. Lymphocyte pct 26.3 % [facility] Comment: Interpretive Data Percent cell count reference ranges are not reported, since discordance with absolute values may lead to misinterpretation of CBC data. Current Interpretive Data was last revised on 2018. Monocyte pct 5.3 % [facility] Comment: Interpretive Data Percent cell count reference ranges are not reported, since discordance with absolute values may lead to misinterpretation of CBC data. Current Interpretive Data was last revised on 2018. Eosinophil pct 1.6 % [facility] Comment: Interpretive Data Percent cell count reference ranges are not reported, since discordance with absolute values may lead to misinterpretation of CBC data. Current Interpretive Data was last revised on 2018. Basophil pct 0.5 % [facility] Comment: Interpretive Data Percent cell count reference ranges are not reported, since discordance with absolute values may lead to misinterpretation of CBC data. Current Interpretive Data was last revised on 2018. Blood 10/28/2024 2:02 PM CRYOGENIC TRANSPORT DRIVER 10/28/2024 2:02 PM CRYOGENIC TRANSPORT DRIVER Kirsten Roa NP LAB BLOOD ORDE RABLES Final Result Performing Organization Address [facility]/ZIP Co de Phone Number [facility] Department [place] [address] * (ABNORMAL) Iron profile w/ IBC (10/28/2024 2:02 PM CRYOGENIC TRANSPORT DRIVER) Pathologist [facility] Iron 14(L) 35 - 145 mcg/dL TIBC 274 250 - 400 mcg/dL [facility] Transferrin saturation 5(L) 20 - 50 % [facility] Blood 10/28/2024 2:02 PM CRYOGENIC TRANSPORT DRIVER 10/28/2024 3:30 PM CRYOGENIC TRANSPORT DRIVER us Flynn Ma MD LAB BLOOD ORDERABLES Final R esult [facility] [place] [address] * (ABNORMAL) CBC with auto differential (10/28/2024 2:02 PM CRYOGENIC TRANSPORT DRIVER) WBC 17.3(H) 3.8 - 9.9 K/cumm Comment:Testing performed by : [facility], [address] [place] [address] [place] [address] Hgb 8.8(L) 11.9 - 15.5 g/dL [facility] Comment:Testing performed by : [address] [address] Hct 31.2(L) 35.6 - 45.5 % [facility] Comment:Testing performed by : [address] [address] Plt 430(H) 150 - 400 K/cumm [facility] Comment:Testing performed by : [address] [address] MPV 9.0(L) 9.1 - 12.3 fL [facility] RBC 4.33 3.90 - 5.20 M/cumm [facility] MCV 72.1(L) 81.3 - 96.4 fL [facility] MCH 20.3(L) 27.1 - 33.3 pg [facility] MCHC 28.2(L) 32.3 - 35.7 g/dL [facility] RDW CV 19.4(H) 11.1 - 14.9 % [facility] RDW SD 49.3(H) 35.7 - 48.1 fL [facility] NRBC abs 0.02(H) 0.00 - 0.01 K/cumm [facility] Blood 10/28/2024 2:02 PM CRYOGENIC TRANSPORT DRIVER 10/28/2024 2:02 PM CRYOGENIC TRANSPORT DRIVER Kirsten Roa NP LAB BLOOD ROSETTE TUTTLE Final Result [facility] [place] [address] * Lactate dehydrogenase (LD) (10/28/2024 2:02 PM CRYOGENIC TRANSPORT DRIVER) Lactate dehydrogenase (LDH) 160 100 - 250 Units/L Comment:Testing performed by : [address] [address] Blood 10/28/2024 2:02 PM CRYOGENIC TRANSPORT DRIVER 10/28/2024 2:02 PM CRYOGENIC TRANSPORT DRIVER Kirsten Negrita Roa DIRECTOR AIRPORT OPERATIONS LAB BLOOD ORDE RABFRANSISCO Final Result Performing Organization Address [facility] Co de Phone Number [facility] [place] [address] * Ferritin (10/28/2024 2:02 PM CRYOGENIC TRANSPORT DRIVER) Ferritin 13 13 - 150 ng/mL Blood 10/28/2024 2:02 PM CRYOGENIC TRANSPORT DRIVER 10/28/2024 3:30 PM CRYOGENIC TRANSPORT DRIVER Flynn Ma MD LAB BLOOD ORDERABLES Final R esult Performing Organization Address [facility] [place] [address] * (ABNORMAL) Beta 2 microglobulin, serum (10/28/2024 2:02 PM CRYOGENIC TRANSPORT DRIVER) Beta 2 Microglobulin, Serum 3.20(H) 1.00 - 2.50 mg/L Comment: Interpretive Data The Jose Beta-2 microglobulin assay procedure was used. Results from different manufacturers or methods may not be comparable. Serial testing should be performed using the same method. Blood 10/28/2024 2:02 PM CRYOGENIC TRANSPORT DRIVER 10/28/2024 3:24 PM CRYOGENIC TRANSPORT DRIVER Kirsten Negrita Roa DIRECTOR AIRPORT OPERATIONS LAB BLOOD ORDE RABFRANSISCO Final Result Performing Organization Address [facility] de Phone Number [place], [place] [id number] * (ABNORMAL) Comprehensive metabolic panel (10/28/2024 2:02 PM CRYOGENIC TRANSPORT DRIVER) Sodium 144 135 - 145 mmol/L Comment:Testing performed by : [facility], [address] [place] [address] Potassium, pl 3.9 3.3 - 4.9 mmol/L [facility] Chloride 108 97 - 110 mmol/L [facility] CO2 26 22 - 32 mmol/L [facility] Anion gap 10 2 - 15 mmol/L [facility] BUN 29(H) 6 - 25 mg/dL [facility] Creatinine 0.99 0.60 - 1.10 mg/dL [facility] Glucose 106 70 - 199 mg/dL [facility] Comment: Interpretive Data Fasting glucose >/= [...] 2022. Calcium 9.1 8.5 - 10.3 mg/dL [facility] Bilirubin, total 0.2 0.1 - 1.2 mg/dL [facility] Comment:Repeated and verifie d. Protein, pl 6.7 6.5 - 8.5 g/dL [facility] Albumin 4.0 3.5 - 5.0 g/dL [facility] Alk phos 102 40 - 130 Units/L [facility] ALT 8 7 - 45 Units/L [facility] AST 12 10 - 45 Units/L [facility] Blood 10/28/2024 2:02 PM CRYOGENIC TRANSPORT DRIVER 10/28/2024 2:02 PM CRYOGENIC TRANSPORT DRIVER Kirsten Roa NP LAB BLOOD ROSETTE TUTTLE Final Result [facility] Department [place] [address] * ANGIOGRAM (10/16/2024 3:19 PM CRYOGENIC TRANSPORT DRIVER) Anatomical Region Laterality Modality X-Ray Angiograph y Narrative 10/16/2024 7:48 PM CRYOGENIC TRANSPORT DRIVER Please see OpNote for result. Result [facility] Madelyn Vicente MD PhD SURGICAL CASE ORDERS F inal Result * ANGIOPLASTY BALLOON PERCUTANEOUS (10/16/2024 3:19 PM CRYOGENIC TRANSPORT DRIVER) Anatomical Region Laterality Modality X-Ray Angiograph y Narrative 10/16/2024 7:48 PM CRYOGENIC TRANSPORT DRIVER Please see OpNote for result. Result [facility] Madelyn Vicente MD PhD CV CARDIAC CATH PROCED URES Final Result * FL Fluoroscopy < 1 Hour (10/16/2024 2:45 PM CRYOGENIC TRANSPORT DRIVER) Narrative [facility] - 10/16/2024 2:48 PM CRYOGENIC TRANSPORT DRIVER The images from this study are not interpreted by Radiology. Please refer to the physician's procedure / OR operative note. Result [facility] Madelyn Vicente MD PhD IMG FLUOROSCOPY PROCED URES Final Result Performing Organization Address [facility]/ZIP Co de Phone Number [email or web address] * POCT Activated clotting time, low range (10/16/2024 2:40 PM CRYOGENIC TRANSPORT DRIVER) ACT 128 123 - 168 sec POC Performer [id number] [facility] POC Device Number [id number] [facility] Blood 10/16/2024 2:40 PM CRYOGENIC TRANSPORT DRIVER 10/16/2024 2:40 PM CRYOGENIC TRANSPORT DRIVER Result [facility] Madelyn Vicente MD PhD LAB POCT ORDERABLES - DEVICE Final Result [facility] [place] [address] * (ABNORMAL) POCT Activated clotting time, low range (10/16/2024 2:19 PM CRYOGENIC TRANSPORT DRIVER) ACT 227(H) 123 - 168 sec POC Performer [id number] [facility] POC Device Number [id number] [facility] Blood 10/16/2024 2:19 PM CRYOGENIC TRANSPORT DRIVER 10/16/2024 2:19 PM CRYOGENIC TRANSPORT DRIVER Madelyn Vicente MD PhD LAB POCT ORDERABLES - DEVICE Final Result Performing Organization Address [facility] Co de Phone Number [facility] [place] [address] * Type and screen (10/16/2024 12:21 PM CRYOGENIC TRANSPORT DRIVER) Ella, indirect Negative ABO Rh A Positive [facility] Blood 10/16/2024 12:2 1 PM CRYOGENIC TRANSPORT DRIVER 10/16/2024 1:03 PM CRYOGENIC TRANSPORT DRIVER Narrative [facility] - 10/16/2024 1:50 PM CRYOGENIC TRANSPORT DRIVER Has the patient had Daratumumab or Isatuximab in the past 6 months?->Unknown Valentino Menezes MD LAB BLOOD BANK TEST ORDERABLES F inal Result Performing Organization Address [facility] Co de Phone Number [facility] [place] [address] * eGFR (10/11/2024 4:29 PM CRYOGENIC TRANSPORT DRIVER) eGFR 65 >=60 mL/min/1. 73 m2 Comment: [...] last reviewed 2021. Blood 10/11/2024 4:29 PM CRYOGENIC TRANSPORT DRIVER 10/11/2024 5:01 PM CRYOGENIC TRANSPORT DRIVER Mustapha George MD LAB BLOOD ORDERABLES Final R esult Performing Organization Address [facility]/ZIP Co de Phone Number [facility] [place] [address] * (ABNORMAL) CBC without differential (10/11/2024 4:29 PM CRYOGENIC TRANSPORT DRIVER) WBC 14.2(H) 3.8 - 9.9 K/cumm Hgb 9.5(L) 11.9 - 15.5 g/dL [facility] Hct 33.7(L) 35.6 - 45.5 % [facility] Plt 580(H) 150 - 400 K/cumm [facility] MPV 9.8 9.1 - 12.3 fL [facility] RBC 4.64 3.90 - 5.20 M/cumm [facility] MCV 72.6(L) 81.3 - 96.4 fL [facility] MCH 20.5(L) 27.1 - 33.3 pg [facility] MCHC 28.2(L) 32.3 - 35.7 g/dL [facility] RDW CV 18.7(H) 11.1 - 14.9 % [facility] RDW SD 48.2(H) 35.7 - 48.1 fL [facility] NRBC abs 0.00 0.00 - 0.01 K/cumm [facility] Blood 10/11/2024 4:29 PM CRYOGENIC TRANSPORT DRIVER 10/11/2024 5:01 PM CRYOGENIC TRANSPORT DRIVER us Mustapha George MD LAB BLOOD ORDERABLES Final R esult Performing Organization Address [facility]/ZIP Co de Phone Number [facility] [place] [address] * Type and screen (10/11/2024 4:29 PM CRYOGENIC TRANSPORT DRIVER) ABO Rh A Positive Ella, indirect Negative [facility] Blood 10/11/2024 4:29 PM CRYOGENIC TRANSPORT DRIVER 10/11/2024 5:30 PM CRYOGENIC TRANSPORT DRIVER Narrative [facility] - 10/11/2024 6:38 PM CRYOGENIC TRANSPORT DRIVER Has the patient had Daratumumab or Isatuximab in the past 6 months?->Unknown Mustapha George MD LAB BLOOD BANK TEST ORDERABL ES Final Result [facility] [place] [address] * (ABNORMAL) Basic metabolic panel (10/11/2024 4:29 PM CRYOGENIC TRANSPORT DRIVER) Sodium 146(H) 135 - 145 mmol/L Potassium, pl 3.9 3.3 - 4.9 mmol/L [facility] Chloride 108 97 - 110 mmol/L [facility] CO2 24 22 - 32 mmol/L [facility] Anion gap 14 2 - 15 mmol/L [facility] BUN 12 6 - 25 mg/dL [facility] Creatinine 1.04 0.60 - 1.10 mg/dL [facility] Glucose 82 70 - 199 mg/dL [facility] Comment: Interpretive Data Fasting glucose >/= [...] 2022. Calcium 9.3 8.5 - 10.3 mg/dL [facility] Blood 10/11/2024 4:29 PM CRYOGENIC TRANSPORT DRIVER 10/11/2024 5:01 PM CRYOGENIC TRANSPORT DRIVER us Mustapha George MD LAB BLOOD ORDERABLES Final R esult [facility] [place] [address] * CTA Abdominal Aorta And Bilateral Iliofemoral Runoff (10/07/2024 1:09 PM CRYOGENIC TRANSPORT DRIVER) Anatomical Region Laterality Modality Body Bilateral Computed Tomogra phy 10/07/2024 2:47 PM CRYOGENIC TRANSPORT DRIVER Impressions 10/07/2024 2:53 PM CRYOGENIC TRANSPORT DRIVER 1. Right lower extremity: Revision of the [...] Mor Pugh M.D. Narrative 10/07/2024 2:53 PM CRYOGENIC TRANSPORT DRIVER EXAMINATION: CT ANGIOGRAPHY OF THE ABDOMEN, PELVIS, [...] it. Electronically signed by: Mor Pugh M.D. Madelyn Vicente MD PhD IMG CT PROCEDURES Kelsea l Result * US Arterial Duplex Lower Extremity Right Limited (09/26/2024 11:38 AM CRYOGENIC TRANSPORT DRIVER) Anatomical Region Laterality Modality Vascular Right Ultrasound 09/26/2024 11:0 0 AM CRYOGENIC TRANSPORT DRIVER Narrative 09/28/2024 12:40 PM CRYOGENIC TRANSPORT DRIVER [employer] - Department of Vascular Surgery, Vascular Laboratory [address] [place] [address] Lower Extremity Arterial Duplex - Bypass Graft Report Patient Name: JEFFERY HAMILTON : 1970 Study Date: 09/26/2024 11:00:54 AM Gender: F Tech: [place] Location: [facility] Ref Provider: MADELYN VICENTE Quality: Adequate Order Provider: MADELYN VICENTE PROCEDURES: Arterial Report: Right Femoral - AK Popliteal Bypass Graft. INDICATIONS: I70.211 Atherosclerosis of [place] arteries of extremities with intermittent claudication, right leg and Z48.812 Encounter for surgical aftercare following surgery on the circulatory system. MEASUREMENTS: Right Value Units Rt Inflow Artery 34 cm/s Rt Proximal Anastomosis 25 cm/s Rt Proximal Graft 48 cm/s Rt Mid Graft 61 cm/s Rt Distal Graft 52 cm/s Rt Outflow Artery 18 cm/s Right Value Units - FINDINGS: Performing Displayer Merchandise: Magdalene Mack RVT. Right Leg: The inflow [...] above. Electronically Signed By: Willy Medellin MD [facility] 09/28/2024 12:39:24 PM CRYOGENIC TRANSPORT DRIVER Procedure Note Willy Medellin MD - 09/28/2024 [facility] - Department of Vascular Surgery,Vascular Laboratory [address] [place] [address] Lower Extremity Arterial Duplex - Bypass Graft Report Patient Name: JEFFERY HAMILTON : 1970 Study Date: 09/26/2024 11:00:54 AM Gender: F Tech: [place] Location: [facility] Provider: MADELYN VICENTE Quality: Adequate Order Provider: MADELYN VICENTE PROCEDURES: Arterial Report: Right Femoral - AK Popliteal Bypass Graft. INDICATIONS: I70.211 Atherosclerosis of [place] arteries of extremities withintermittent claudication, right leg and Z48.812 Encounter for surgical aftercare following surgeryon the circulatory system. MEASUREMENTS: Right Value Units Rt Inflow Artery 34 cm/s Rt Proximal Anastomosis 25 cm/s Rt Proximal Graft 48 cm/s Rt Mid Graft 61 cm/s Rt Distal Graft 52 cm/s Rt Outflow Artery 18 cm/s Right Value Units - FINDINGS: Performing Displayer Merchandise: Magdalene Mack RVT. Right Leg: The inflow [...] above. Electronically Signed By: Willy Medellin MD [facility] 09/28/2024 12:39:24 PM CRYOGENIC TRANSPORT DRIVER [facility] Cindy Vicente MD PhD IMG US PROCEDURES Kelsea l Result * US Arterial Doppler Lower Extremity Bilateral (09/26/2024 11:38 AM CRYOGENIC TRANSPORT DRIVER) Anatomical Region Laterality Modality Vascular Bilateral Ultrasound 09/26/2024 11:0 3 AM CRYOGENIC TRANSPORT DRIVER Narrative 09/28/2024 12:36 PM CRYOGENIC TRANSPORT DRIVER [facility] - Department of Vascular Surgery, Vascular Laboratory [address] [place] [address] Lower Extremity Arterial Doppler Report Patient Name: JEFFERY HAMILTON : 1970 Study Date: 09/26/2024 11:03:00 AM Gender: F Tech: Magdalene Mack RVT Location: [facility] Provider: MADELYN VICENTE Quality: Adequate Order Provider: MADELYN VICETNE PROCEDURES: Arterial Report: Bilateral lower extremity arterial Doppler exam at rest. INDICATIONS: Z48.812 Encounter for surgical aftercare following surgery on the circulatory system. MEASUREMENTS: Right Value Units Left Value Units Rt Brachial Pressure 133 mmHg Lt Brachial Pressure 129 mmHg Rt GERIATRIC NURSE ASSISTANT Pressure 66 mmHg Lt GERIATRIC NURSE ASSISTANT Pressure 99 mmHg Rt DPA Pressure 64 mmHg Lt DPA Pressure 101 mmHg Rt 1st Digit Pressure 66 mmHg Lt 1st Digit Pressure 45 mmHg Rt PT KAROLYN Resting 0.5 Lt PT KAROLYN Resting 0.74 Rt AT KAROLYN Resting 0.48 Lt AT KAROLYN Resting 0.76 Rt Digit/Arm Index 0.5 Lt Digit/Arm Index 0.34 Right Value Units Left Value Units - FINDINGS: Performing Displayer Merchandise: Magdalene Mack RVT. Right All Levels: The [...] Willy Medellin MD FACS 09/28/2024 12:35:48 PM CRYOGENIC TRANSPORT DRIVER Procedure Note Willy Medellin MD - 09/28/2024 [facility] - Department of Vascular Surgery,Vascular Laboratory [address] [place] [address] Lower Extremity Arterial Doppler Report Patient Name: JEFFERY HAMILTON : 1970 Study Date: 09/26/2024 11:03:00 AM Gender: F Tech: Magdalene Mack Toma Location: [facility] Ref Provider: MADELYN VICENTE Quality: Adequate Order Provider: MADELYN VICENTE PROCEDURES: Arterial Report: Bilateral lower extremity arterial Doppler exam at rest. INDICATIONS: Z48.812 Encounter for surgical aftercare following surgery on thecirculatory system. MEASUREMENTS: Right Value Units Left ValueUnits Rt Brachial Pressure 133 mmHg Lt Brachial Pressure 129mmHg Rt GERIATRIC NURSE ASSISTANT Pressure 66 mmHg Lt GERIATRIC NURSE ASSISTANT Pressure 99mmHg Rt DPA Pressure 64 mmHg Lt DPA Pressure 101mmHg Rt 1st Digit Pressure 66 mmHg Lt 1st Digit Pressure 45mmHg Rt PT KAROLYN Resting 0.5 Lt PT KAROLYN Resting 0.74 Rt AT KAROLYN Resting 0.48 Lt AT KAROLYN Resting 0.76 Rt Digit/Arm Index 0.5 Lt Digit/Arm Index 0.34 Right Value Units Left ValueUnits - FINDINGS: Performing Displayer Merchandise: Magdalene Mack RVT. Right All Levels: The [...] Willy Medellin MD FACS 09/28/2024 12:35:48 PM CRYOGENIC TRANSPORT DRIVER us [facility] Cindy Vicente MD PhD IMG US PROCEDURES Kelsea l Result from Last 3 Months Additional Health Concerns Infection Onset Date Last Indicated MDR gram neg/ESBL 07/23/2024 08/01/2024 Insurance MEDICARE [facility] Address: [id number] [place] [address] [facility] [address] [place] [address] MEDICARE MEDICARE [employer] [facility] Address: [address] [address] [place] [address] Advance Directives For more information, please contact: [phone] * Full Code (Latest Code Status on [...] 10:15 AM 07/03/2024 11:02 AM Care Teams Cryptographic Technician Relationship Specialty Start Date End Date Mor Blancas MD [address] [place] [address] PCP - General Emergency Medicine 03/25/24 Flynn Ma MD [address] [facility] [address] [place] [address] Medical Oncologist/Hydraulic Design Engineer Medical Oncology 09/28/18 Colleen Diaz MD [address] [place] [address] Referring Physician Nephrology 03/24/22 Derek Wilson MD [address] [place] [address] Referring Physician Obstetrics and Gynecology 06/26/23 Mar Jay MD [address] [place] [address] Surgeon Vascular Surgery 08/24/23 Mitch Austin DO [address] [place] [address] Surgeon Surgery 09/26/23 Madelyn Vicente MD PhD [id number] [place] [address] Registered Nurse Vascular Surgery 07/05/24 Eric Washington MD [address] [place] [address] Consulting Physician Plastic Surgery 07/29/24
== END 2024-12-12 16:15 | disposition home or self-care (01) ==
PROVIDERS: Emergency Provider Emergency Medicine; PCP Emergency Medicine
DX: I73.9 Peripheral vascular disease, unspecified (principal); I10 Essential (primary) hypertension; F17.210 Nicotine dependence, cigarettes, uncomplicated; Z79.01 Long term (current) use of anticoagulants
CPT/HCPCS: 99281

== ENCOUNTER 2024-12-13 07:28 | Outpatient (CLI) | payer MEDICARE, SELFPAY ==
--- NOTE | ~2024-12-13 | CT_ITS ---
EXAMINATION: CT LE RT w con DATE: 12/13/2024 08:59 INDICATION: Right lower limb femur wound with proximal swelling post femoral-popliteal bypass graft. TECHNIQUE: Computed tomography (CT) of the right thigh from above the hip through the knee was perfor med with 100 mL Omnipaque-350 intravenous contrast. Automated exposure control and iterative reconstr uction technique were employed. The dose-length product was 954.36 mGy-cm. COMPARISON: None FINDINGS: There are postoperative change of prior femoral popliteal bypass graft utilizing the [place] greater s aphenous vein. There is thrombosis of the right common femoral and femoral arteries. The right profun da femoral artery appears to reconstitute by collaterals. There is central decreased attenuation destiny g the right popliteal bypass graft consistent with additional thrombosis which was also evident on pr ior right lower extremity venous Doppler study which demonstrated no internal vascular flow in the re gion of the mid right greater saphenous vein on color Doppler. The right popliteal artery reconstitut es via collaterals immediately distal to the anastomosis with the bypass graft. There is a 5.8 x 2.0 cm triangular region of soft tissue density extending between the region of the proximal anastomosis of the bypass graft and the skin surface at the right groin which appears to rep resent a a proximally reflected muscle flap of the distal rectus femoris muscle belly. Small amount o f subcutaneous scarring underlying the surgical wound along the skin surface at the posterior medial aspect of the distal thigh. There is small amount of deeper nonorganized appearing fluid in the popli teal fossa surrounding the distal portion of the thrombosed greater saphenous vein bypass. No organiz ed peripheral enhancing abscess identified. Of note there are paired right popliteal veins one of [facility] demonstrates a nonocclusive filling defect consistent with deep venous thrombosis. Moderate osteoa rthritis at the right hip and at least mild tricompartmental osteoarthritis at the right knee. IMPRESSION: 1. Thrombosis of the [place] right common femoral and femoral arteries as well as of a right femoral-p opliteal bypass graft utilizing the [place] right greater saphenous vein which appears occluded with n o evident internal vascular flow on the immediately prior lower extremity Doppler study. 2. Small amount of nonorganized appearing fluid at the popliteal fossa surrounding the distal aspect of the thrombosed bypass graft. No peripheral enhancing abscess. 3. Deep venous thrombosis in one of the paired right popliteal veins. This and the above 2 findings w ere discussed with Dr. Blancas at 9:35 AM. Reviewed, dictated and finalized at location B. [employer] CONSULTANT IMPRESSION: 1. Thrombosis of the [place] right common femoral and femoral arteries as well a s of a right femoral-popliteal bypass graft utilizing the [place] right greater saphenous vein which appears occluded with no evident internal vascular flow on the immediately prior lower extremity Doppler study. 2. Small amount of nonorganized appearing fluid at the popliteal fossa surround ing the distal aspect of the thrombosed bypass graft. No peripheral enhancing a bscess. 3. Deep venous thrombosis in one of the paired right popliteal veins. This and the above 2 findings were discussed with Dr. Blancas at 9:35 AM.
--- NOTE | ~2024-12-13 | US_ITS ---
EXAMINATION: US venous doppler LE RT DATE: 12/13/2024 08:08 INDICATION: Right lower limb pain TECHNIQUE: Grayscale ultrasound images without and with compression and Doppler ultrasound images of the right lower extremity veins were obtained. COMPARISON: 08/07/2023 FINDINGS: The visualized portions of right common femoral vein, profunda (deep) femoral vein, femoral vein, pop liteal vein, peroneal trunk, posterior tibial veins, peroneal veins and gastrocnemius vein are patent . The right greater saphenous vein is noncompressible with occlusive thrombus with no evident interna l vascular flow on color Doppler throughout the visualized portions of the vein from the proximal to the distal thigh. Distally the greater saphenous vein extends deeper into the popliteal fossa than ty pical which per provided history and subsequent CT imaging of the right thigh is due to visualization of the greater saphenous vein as in situ femoral to popliteal arterial bypass graft. Of note there i s nonocclusive thrombus within a second right popliteal vein on the subsequent CT which is not visual ized on the provided images. IMPRESSION: 1. Deep venous thrombosis in one of the paired right popliteal veins which is not identified on the provided images but which is seen on the immediately subsequent contrast-enhanced CT of the right thi gh. No other evident deep venous thrombosis in the right lower limb. 2. Occlusive thrombus in the right greater saphenous vein which based on clinical history and CT imag ing appears to have been utilized as an in situ femoral to popliteal arterial bypass graft. This and the thrombus in the lateral tibial vein were discussed with Dr. Blancas at 9:35 AM. Reviewed, dictated and finalized at location B. ARCH SCIENTIST IMPRESSION: 1. Deep venous thrombosis in one of the paired right popliteal veins which is not identified on the provided images but which is seen on the immediately subs equent contrast-enhanced CT of the right thigh. No other evident deep venous th rombosis in the right lower limb. 2. Occlusive thrombus in the right greater saphenous vein which based on clinic al history and CT imaging appears to have been utilized as an in situ femoral t o popliteal arterial bypass graft. This and the thrombus in the lateral tibial vein were discussed with Dr. Blancas at 9:35 AM.
--- OUTSIDE RECORDS SUMMARY | 2024-12-13 07:33 | XMS_ITS | Encounter Summary ---
Author Organization [facility] Address [address] [place] [address] Phone Care Team Providers Care Cloth Tearer Name Role Phone Flynn Ma MD Unavailable [phone] Ari Elmore DO Primary Care Provider Colleen Diaz MD Unavailable Derek Wilson MD Unavailable [phone] Mar Jay MD Unavailable Mitch Austin DO Unavailable [phone] Mor Blancas MD Primary Care Provide r Madelyn Vicente MD PhD Unavailable [phone] Eric Washington MD Unavailable [phone] Encounter Details Date Type Department Care Team [...] on file 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 Gender Identity Female 03/14/2022 6:19 PM CDT [...] documented as of this encounter Care Teams Cloth Tearer Relationship Specialty Start Date End Date Ari Elmore DO [address] [place] [address] PCP - General Family Medicine 12/16/20 03/24/24 Mor Blancas MD [address] [place] [address] PCP - General Emergency Medicine 03/25/24 Flynn Ma MD [address] [facility] [address] [place] [address] Medical Oncologist/Bisque Kiln Drawer Medical Oncology 09/28/18 Colleen Diaz MD [address] [place] [address] Referring Physician Nephrology 03/24/22 Derek Wilson MD [address] [place] [address] Referring Physician Obstetrics and Gynecology 06/26/23 Mar Jay MD [address] [place] [address] Surgeon Vascular Surgery 08/24/23 Mitch Austin DO [address] [address] Surgeon Surgery 09/26/23 Madelyn Vicente MD PhD [address] [facility] [id number] [place] [address] Registered Nurse Vascular Surgery 07/05/24 Eric Washington MD [address] [place] [address] Consulting Physician Plastic Surgery 07/29/24 documented as of this encounter
--- OUTSIDE RECORDS SUMMARY | 2024-12-13 07:33 | XMS_ITS | Encounter Summary ---
Author Organization [facility] Address [address] [place] [address] Phone Care Team Providers Care Disability Case Manager Name Role Phone Flynn Ma MD Unavailable [phone] Ari lEmore DO Primary Care Provider Colleen Diaz MD Unavailable Derek Wilson MD Unavailable [phone] Mar Jay MD Unavailable Mitch Austin DO Unavailable [phone] Mor Blancas MD Primary Care Provide r Madelyn Vicente MD PhD Unavailable [phone] Eric Washington MD Unavailable [phone] Encounter Details Date Type Department Care Team [...] on file 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 Gender Identity Female 03/14/2022 6:19 PM [...] documented as of this encounter Care Teams Disability Case Manager Relationship Specialty Start Date End Date Ari Elmore DO [address] [place] [address] PCP - General Family Medicine 12/16/20 03/24/24 Mor Blancas MD [address] [place] [address] PCP - General Emergency Medicine 03/25/24 Flynn Ma MD [address] [facility] [address] [place] [address] Medical Oncologist/Paper Cone Grader Medical Oncology 09/28/18 Colleen Diaz MD [address] [place] [address] Referring Physician Nephrology 03/24/22 Derek Wilson MD [address] [place] [address] Referring Physician Obstetrics and Gynecology 06/26/23 Mar Jay MD [address] [place] [address] Surgeon Vascular Surgery 08/24/23 Mitch Austin DO [address] [address] Surgeon Surgery 09/26/23 Madelyn Vicente MD PhD [address] [facility] [id number] [place] [address] Registered Nurse Vascular Surgery 07/05/24 Eric Washington MD [address] [place] [address] Consulting Physician Plastic Surgery 07/29/24 documented as of this encounter
--- OUTSIDE RECORDS SUMMARY | 2024-12-13 07:34 | XMS_ITS | Encounter Summary ---
Author Organization [facility] Address [address] [place] [address] Phone Care Team Providers Care Experimental Mechanic Electrical Name Role Phone Flynn Ma MD Unavailable [phone] Colleen Diaz MD Unavailable Derek Wilson MD Unavailable [phone] Mar Jay MD Unavailable Mitch Austin DO Unavailable [phone] Mor Blancas MD Primary Care Provide r Madelyn Vicente MD PhD Unavailable [phone] Eric Washington MD Unavailable [phone] Reason for Visit * Reason Onset Date Comments Medical Question/Miscellaneous 11/21/2024 Encounter Details Date Type Department Care Team (Late st Contact Info) Description 11/21/2024 Telephone [facility] ([facility]) - [facility] Minimally Invasive Surgery [address] [facility] [address]th Floor, [place] [address] Mor Jain MD PhD [address] [place] [address] Medical Question/Miscellaneous Social History Tobacco Use Types Packs/Day Years Used Date Smoking Tobacco: Former Cigarettes 1 37.5 1 987 - 04/08/2024 Passive Smoke Exposure: Past Smokeless Tobacco: Never Comments:cutting down 4-6 a day Alcohol Use Standard Drinks/Week Comments No 0 (1 standard drink = 0.6 oz pur e alcohol) [facility] Utilities Answer Date Recorded In the [...] often do you attend chur ch or mormon services? Never 07/24/2024 Do you belong to any clubs o r organizations such as congregational groups, unions, fraternal or athletic groups, or [...] any time in the past 12 m [facility], were you homeless or living in a half-way (including now)? No 07/24/2024 Personal Safety Answer Date Recorded Have you ever been in or are you currently in a harmful physical or emotional relationship or is someone making you feel afraid or unsafe? Denies 10/16/2024 Comments No Sex and Gender Information Value Date Recorded Sex Assigned at Not on file 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 IMPLANT POLISHER Gender Identity Female 03/14/2022 6:19 PM CDT [...] them to contact for a call back: [phone] ANT POLISHER documented in this encounter Plan of Treatment Not on file documented as of this encounter Visit Diagnoses Not on filedocumented in this encounter Additional Health Concerns Infection Onset Date Last Indicated Resolved Time MDR gram neg/ESBL 07/23/2024 08/01/2024 documented as of this encounter Care Teams Experimental Mechanic Electrical Relationship Specialty Start Date End Date Mor Blancas MD [address] [place] [address] PCP - General Emergency Medicine 03/25/24 Flynn Ma MD [address] [facility] [address] [place] [address] Medical Oncologist/Outsole Flexer Medical Oncology 09/28/18 Colleen Diaz MD [address] [place] [address] Referring Physician Nephrology 03/24/22 Derek Wilson MD [address] [place] [address] Referring Physician Obstetrics and Gynecology 06/26/23 Mar Jay MD [address] [place] [address] Surgeon Vascular Surgery 08/24/23 Mitch Austin DO [address] [place] [address] Surgeon Surgery 09/26/23 Madelyn Vicente MD PhD [address] [facility] [address]09 [place] [address] Registered Nurse Vascular Surgery 07/05/24 Eric Washington MD [address] [place] [address] Consulting Physician Plastic Surgery 07/29/24 documented as of this encounter
--- OUTSIDE RECORDS SUMMARY | 2024-12-13 07:34 | XMS_ITS | Encounter Summary ---
Author Organization [facility] Address [address] [place] [address] Phone Care Team Providers Care Installation Drafter Name Role Phone Flynn Ma MD Unavailable [phone] Colleen Diaz MD Unavailable Derek Wilson MD Unavailable [phone] Mar Jay MD Unavailable Mitch Austin DO Unavailable [phone] Mor Blancas MD Primary Care Provide r Madelyn Vicente MD PhD Unavailable [phone] Eric Washington MD Unavailable [phone] Reason for Visit * Reason Onset Date Comments Medical Question/Miscellaneous 12/04/2024 Encounter Details Date Type Department Care Team (Late st Contact Info) Description 12/04/2024 Telephone [facility] - [facility] Minimally Invasive Surgery [address] [facility] [address] [facility] [address]th [address], [place] [address] Mor Jain MD PhD [address] [place] [address] Medical Question/Miscellaneous Social History Tobacco Use Types Packs/Day Years Used Date Smoking Tobacco: Former Cigarettes 1 37.5 1 987 - 04/08/2024 Passive Smoke Exposure: Past Smokeless Tobacco: Never Comments:cutting down 4-6 a day Alcohol Use Standard Drinks/Week Comments No 0 (1 standard drink = 0.6 oz pur e alcohol) [facility] Utilities Answer Date Recorded In the [...] often do you attend chur ch or buddhist services? Never 07/24/2024 Do you belong to any clubs o r organizations such as anabaptist groups, unions, fraternal or athletic groups, or [...] any time in the past [address] 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 Yes, no answer. Reason for call?: Jerri from [facility] ultrasound department called for a clarification on an order. This order is for MALS and to check celiac artery. Patients celiac artery is included and is colateral. Jerri is inquiring if to cancel the appointment or look at something else. Who is the caller: Jerri What is the best number for them to contact for a call back: [phone] ask for jerri [employer] IN[employer]MENT BANKING documented in this encounter Plan of Treatment Not on file documented as of this encounter Visit Diagnoses Not on filedocumented in this encounter Additional Health Concerns Infection Onset Date Last Indicated Resolved Time MDR gram neg/ESBL 07/23/2024 08/01/2024 documented as of this encounter Care Teams Installation Drafter Relationship Specialty Start Date End Date Mor Blancas MD [address] [place] [address] PCP - General Emergency Medicine 03/25/24 Flynn Ma MD [address] [facility] [address] [place] [address] Medical Oncologist/Web Site Specialist Medical Oncology 09/28/18 Colleen Diaz MD [address] [place] [address] Referring Physician Nephrology 03/24/22 Derek Wilson MD [address] [facility] [place] [address] Referring Physician Obstetrics and Gynecology 06/26/23 Mar Jay MD [address] [place] [address] Surgeon Vascular Surgery 08/24/23 Mitch Austin DO [address] [place] [address] Surgeon Surgery 09/26/23 Madelyn Vicente MD PhD [address] [place] [address] Registered Nurse Vascular Surgery 07/05/24 Eric Washington MD [address] [place] [address] Consulting Physician Plastic Surgery 07/29/24 documented as of this encounter
--- OUTSIDE RECORDS SUMMARY | 2024-12-13 07:34 | XMS_ITS | Encounter Summary ---
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 Name Role Phone Flynn Ma MD Unavailable Ari Elmore DO Primary Care Provider Colleen Diaz MD Unavailable Derek Wilson MD Unavailable [phone] Mar Jay MD Unavailable [phone] Mitch Austin DO Unavailable [phone] Mor Blancas MD Primary Care Provide r Madelyn Vicente MD PhD Unavailable [phone] Eric Washington MD Unavailable [phone] Encounter Details Date Type Department Care Team [...] on file 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 Gender Identity Female 03/14/2022 6:19 PM CDT [...] documented as of this encounter Care Teams Lieutenant Firefighter Relationship Specialty Start Date End Date Ari Elmore DO [address] [place] [address] PCP - General Family Medicine 12/16/20 03/24/24 Mor Blancas MD [address] [place] [address] PCP - General Emergency Medicine 03/25/24 Flynn Ma MD [address] [facility] [address] [place] [address] Medical Oncologist/Oyster Preparer Medical Oncology 09/28/18 Colleen Diaz MD [address] [place] [address] Referring Physician Nephrology 03/24/22 Derek Wilson MD [address] [place] [address] Referring Physician Obstetrics and Gynecology 06/26/23 Mar Jay MD [address] [place] [address] Surgeon Vascular Surgery 08/24/23 Mitch Austin DO [address] [facility] [address] [place] [address] Surgeon Surgery 09/26/23 Madelyn Vicente MD PhD [address] [facility] [address] [place] [address] Registered Nurse Vascular Surgery 07/05/24 Eric Washington MD [address] [place] [address] Consulting Physician Plastic Surgery 07/29/24 documented as of this encounter
--- OUTSIDE RECORDS SUMMARY | 2024-12-13 07:34 | XMS_ITS | Referral Summary ---
Author Organization [facility] Address [address] [place] [address] Care Team Providers [employer] Information Clerk Name Role Phone Flynn Ma MD Unavailable Colleen Diaz MD Unavailable Derek Wilson MD Unavailable Mar Jay MD Unavailable Mitch Austin DO Unavailable [phone] Mor Blancas MD Primary Care Provide r Madelyn Vicente MD PhD Unavailable [phone] Eric Washington MD Unavailable [phone] Encounters Date Type Department Care Team Description 12/12/2024 Telephone [facility] [address] [facility] Medical Office Building 3 [address] [place] [address] Franco Robertson, Artemio 12/04/2024 Telephone [facility]) - [facility] Minimally Invasive [facility] [facility] 12th Floor, [place] [address] Mor Jain MD PhD Medical Question/Miscellane ous 11/27/2024 10:15 AM VAULT CASHIER Ancillary Procedure [facility] at the [place] [id number] [facility] 8th [place] [address] Encounter for surgical aftercare following surgery on the circulatory system; PAD (peripheral artery disease); Presence of other vascular implants and grafts 11/27/2024 11:00 AM VAULT CASHIER [facility] [address] [facility] 8th [place] [address] [place] [address] Madelyn Vicente MD PhD Encounter for surgical aftercare following surgery on the circulatory system (Primary Dx) 11/25/2024 Orders Only [facility] [address] [facility] Floor 1 [place] [address] Madelyn Vicente MD PhD Encounter for surgical aftercare following surgery on the circulatory system (Primary Dx); Presence of other vascular implants and grafts 11/21/2024 Telephone [facility] Minimally Invasive Surgery [address] [facility] 12th Floor, [place] [address] Mor Jain MD PhD Medical Question/Miscellane ous 11/11/2024 1:00 PM VAULT CASHIER Infusion [address] [address] Iron deficiency anemia, unspecified iron deficiency anemia type (Primary Dx); Anemia, unspecified type 11/04/2024 Telephone [facility]) [facility] Minimally Invasive Surgery [address] [facility] 12th Floor, [place] [address] Mor Jain MD PhD Scheduling Appointments 11/04/2024 1:00 PM VAULT CASHIER Infusion [address] [address] Iron deficiency anemia, unspecified iron deficiency anemia type (Primary Dx); Anemia, unspecified type 10/30/2024 Orders Only [facility] Floor 6 [place] [address] Mireya Briceno RN 10/30/2024 Orders Only [facility] [address] [facility] Floor 6 [place] [address] Mireya Briceno RN 10/29/2024 Orders Only [facility] [address] [facility] Floor 6 [place] [address] Kirsten Roa NP Anemia, unspecified type (Primary Dx) 10/28/2024 2:30 PM VAULT CASHIER Lab [facility] [address] [place] [address] Chronic lymphoid leukemia, without mention of having achieved remission(204.10) (HCC) 10/28/2024 3:15 PM VAULT CASHIER [facility] [address] [place] [address] Kirsten Roa NP Chronic lymphoid leukemia, without mention of having achieved remission(204.10) (HCC) (Primary Dx); Anemia, unspecified type 10/23/2024 Telephone [facility] [address] [facility] 6th [place] [address] [place] [address] Aracelis Purcell NP 10/18/2024 Orders Only [facility] [address] [facility] 2nd Floor [address] [place] [address] Madelyn Vicente MD PhD Encounter for surgical aftercare following surgery on the circulatory system (Primary Dx); PAD (peripheral artery disease) 10/16/2024 12:20 PM VAULT CASHIER - 10/16/2024 4:15 PM VAULT CASHIER Surgery [facility] Operating Room 1 [place] [address] Madelyn Vicente MD PhD Angiogram 10/16/2024 12:34 PM VAULT CASHIER Anesthesia Event [facility] Operating Room 1 [place] [address] Valentino Menezes MD 10/16/2024 9:18 AM VAULT CASHIER - 10/16/2024 6:50 PM VAULT CASHIER Hospital Encounter [facility] Operating Room 1 [place] [address] Madelyn Vicente MD PhD PAD (peripheral artery disease) Discharge Disposition: Discharge to home or self care 10/14/2024 Telephone [facility] [address] [facility] Floor 1 [place] [address] Madelyn Vicente MD PhD 10/11/2024 11:59 PM VAULT CASHIER Anesthesia Event [facility] Operating Room 1 [place] [address] Mustapha George MD 10/11/2024 2:00 PM VAULT CASHIER Pre-Admission Testing [facility] for Preoperative Assessment and Planning [facility] ([facility]) [address] [place] [address] Preoperative testing (Primary Dx) 10/07/2024 Documentation [facility] [address] [place] [address] Medical Office Building 3 [address] [facility] [place] [address] Madelyn Vicente MD PhD 10/07/2024 12:44 PM VAULT CASHIER - 10/07/2024 11:59 PM VAULT CASHIER Hospital Encounter [facility] [address] [place] [address] PAD (peripheral artery disease) Discharge Disposition: Discharge to home or self care 10/07/2024 10:15 AM VAULT CASHIER Office [facility] [address] [place] [address] Medical Office Building [address] [place] [address] Madelyn Vicente MD PhD PAD (peripheral artery disease) (Primary Dx) 09/26/2024 11:00 AM VAULT CASHIER Ancillary Procedure [facility] [address] [place] [address] [facility] 8th [place] [address] [place] [address] Encounter for surgical aftercare following surgery on the circulatory system; 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, right leg 09/23/2024 10:45 AM VAULT CASHIER [facility] [address] [place] [address] 6th [place] [address] [place] [address] Aracelis Purcell NP Acute lower limb ischemia [...] 07/02/2024 Assessment & Plan (10/16/2024 2:41 PM VAULT CASHIER): Has chronic abdominal pain due to likely [...] 07/01/2024 Assessment & Plan (10/16/2024 2:42 PM VAULT CASHIER): Hx RLE arterial occlusion/DVT 07/2023; h/o splenic [...] 07/01/2024 Assessment & Plan (10/16/2024 2:40 PM VAULT CASHIER): Patient with previous right lower extremity bypass [...] 07/22: emergent OR s/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 R groin [...] 06/26/2023. Held Plavix/Eliquis due to bleeding. - Chassis Wirer consult on 08/08 - Hold home medication [...] 2016, in remission April 2023. Follows with [facility]. Resolved Problems Problem Noted Date Diagnosed Date Resolved Date Urinary tract infection 08/07/2023 06/0 12/2023 Overview (08/07/2023): Recently hospitalized at [place] for pyelonephritis. Discharged on Keflex (08/01-08/10). - Continue cephalexin 500 mg BID. Assessment & Plan (08/07/2023 10:53 PM CDT): Recently hospitalized at [place] for pyelonephritis. Discharged on Keflex (08/01-08/10). - [...] drink = 0.6 oz pur e alcohol) [facility] Utilities Answer Date Recorded In the past 12 months has th e [employer], gas, oil, or water [employer] threatened to shut off services in your [...] week 07/24/2024 How often do you attend [facility] or gnosticism services? Never 07/24/2024 Do you belong to any clubs o r organizations such as methodist groups, unions, fraternal or athletic groups, or [...] any time in the past 12 [facility], were you homeless or living in a detention (including now)? No 07/24/2024 Personal Safety Answer Date Recorded Have you ever been in or are you currently in a harmful physical or emotional relationship or is someone making you feel afraid or unsafe? Denies 10/16/2024 Comments No Sex and Gender Information Value Date Recorded Sex Assigned at Not on file 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 VAULT CASHIER Gender Identity Female 03/14/2022 6:19 PM CDT Sexual Orientation Not on file Last Filed Vital Signs Vital Sign Reading Time Taken Comments Blood Pressure 136/73 11/27/2024 10:59 AM VAULT CASHIER Pulse 54 11/27/2024 10:59 AM VAULT CASHIER Temperature 36.6 C (97.9 F) 11/11/2024 1:41 PM VAULT CASHIER Respiratory Rate 16 11/11/2024 1:51 PM VAULT CASHIER Oxygen Saturation 97% 11/27/2024 10:59 AM VAULT CASHIER Inhaled Oxygen Concentration - - Weight 97.1 kg (214 lb) 11/27/2024 10:59 AM VAULT CASHIER Height 162.6 cm (5' 4 ) 11/27/2024 10:59 AM VAULT CASHIER Body Mass Index 36.73 11/27/2024 10:59 AM VAULT CASHIER Plan of Treatment Not on file Medical Devices Implanted Type Area Batter Mixer Helper Device Identifier Shelf Expiration Date Model / Serial / Lot Playrcart Riki Patch Vascuguard 0.88cm [id number] - [id number] Implanted:Qty : 1 on 07/01/2024 by Madelyn Vicente MD PhD at [facility] Other - see comments Right: Common Femoral Artery Aguayo [employer] [id number] 10/02/2025 [id number] / / [id number] [employer] Restrata Mini Matrix 100mg Micronized Powder Rmini-100 - [id number] Implanted:Qty : 1 on 07/16/2024 by Madelyn Vicente MD PhD at [facility] Right: Groin [employer] 07/11/2025 RMINI-10 0 / / [id number] Aguayo [employer] Patch Vascuguard 0.88cm [id number] - [id number] - [id number] Implanted:Qty : 1 on 07/22/2024 by Madelyn Vicente MD PhD at [facility] Right: Knee Aguay[employer] [id number] 02/19/2026 [id number] / [id number] / [id number] Procedures Procedure Name Priority Date/Time Associated Diagnosis Comments US ARTERIAL DUPLEX LOWER EXTREMITY RIGHT LIMITED Routine 11/27/2024 11:09 AM VAULT CASHIER Encounter for surgical aftercare following surgery on the circulatory system Presence of other vascular implants and grafts US ARTERIAL DOPPLER LOWER EXTREMITY BILATERAL Routine 11/27/2024 11:09 AM VAULT CASHIER Encounter for surgical aftercare following surgery on the circulatory system PAD (peripheral artery disease) IRON PROFILE W/ IBC Routine 10/28/2024 2 :02 PM VAULT CASHIER Chronic lymphoid leukemia, without mention of having achieved remission(204.10) (HCC) FERRITIN Routine 10/28/2024 2:02 PM VAULT CASHIER Chronic lymphoid leukemia, without mention of having achieved remission(204.10) (HCC) EGFR Routine 10/28/2024 2:02 PM VAULT CASHIER Chronic lymphoid leukemia, without mention of having achieved remission(204.10) (HCC) DIFFERENTIAL AUTO Routine 10/28/2024 2:0 2 PM VAULT CASHIER Chronic lymphoid leukemia, without mention of having achieved remission(204.10) (HCC) BETA 2 MICROGLOBULIN SERUM Routine 10/28/2024 2:02 PM VAULT CASHIER Chronic lymphoid leukemia, without mention of having achieved remission(204.10) (HCC) CBC WITH AUTO DIFFERENTIAL Routine 10/28/2024 2:02 PM VAULT CASHIER Chronic lymphoid leukemia, without mention of having achieved remission(204.10) (HCC) COMPREHENSIVE METABOLIC PANEL Routine 10/28/2024 2:02 PM VAULT CASHIER Chronic lymphoid leukemia, without mention of having achieved remission(204.10) (HCC) LACTATE DEHYDROGENASE Routine 10/28/2024 2:02 PM VAULT CASHIER Chronic lymphoid leukemia, without mention of having achieved remission(204.10) (HCC) CV HYBRID ROOM (DEFAULT ORDERABLE) Routine 10/16/2024 3:19 PM VAULT CASHIER PAD (peripheral artery disease) VASCULAR SURGERY PROCEDURE Routine 10/16/2024 3:19 PM VAULT CASHIER PAD (peripheral artery disease) FL FLUOROSCOPY < 1 HOUR IP Routine 10/16/2024 2:45 PM VAULT CASHIER POCT ACTIVATED CLOTTING TIME, LOW RANGE Routine 10/16/2024 2:40 PM VAULT CASHIER POCT ACTIVATED CLOTTING TIME, LOW RANGE Routine 10/16/2024 2:19 PM VAULT CASHIER TYPE AND SCREEN STAT 10/16/2024 12:21 PM VAULT CASHIER EGFR Routine 10/11/2024 4:29 PM VAULT CASHIER Preoperative testing CBC WITHOUT DIFFERENTIAL Routine 10/11/2024 4:29 PM VAULT CASHIER Preoperative testing BASIC METABOLIC PANEL Routine 10/11/2024 4:29 PM VAULT CASHIER Preoperative testing TYPE AND SCREEN Routine 10/11/2024 4:29 PM VAULT CASHIER Preoperative testing CTA ABDOMINAL AORTA AND BILATERAL ILIOFEMORAL RUNOFF Schedule Routine, Read Routine (OP Routine) 10/07/2024 1:09 PM VAULT CASHIER PAD (peripheral artery disease) US ARTERIAL DUPLEX LOWER EXTREMITY RIGHT LIMITED Schedule Routine, Read Routine (OP Routine) 09/26/2024 11:38 AM VAULT CASHIER 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, right leg Encounter for surgical aftercare following surgery on the circulatory system US ARTERIAL DOPPLER LOWER EXTREMITY BILATERAL Schedule Routine, Read Routine (OP Routine) 09/26/2024 11:38 AM VAULT CASHIER Encounter for surgical aftercare following surgery on the circulatory system from Last 3 Months Results * US Arterial Duplex Lower Extremity Right Limited (11/27/2024 11:09 AM VAULT CASHIER) Anatomical Region Laterality Modality Vascular Right Ultrasound 11/27/2024 10:0 6 AM VAULT CASHIER Narrative 11/27/2024 6:44 PM VAULT CASHIER [facility] - Department of Vascular Surgery, Vascular Laboratory [address] [place] [address] Lower Extremity Arterial Duplex - Bypass Graft Report Patient Name: JEFFERY HAMILTON : 1970 Study Date: 11/27/2024 10:06:16 AM Gender: F Tech: [place] Location: [facility] Ref Provider: MADELYN VICENTE Quality: Adequate [...] 47 cm/s Right Value Units FINDINGS: Performing Market Maker: Dolores Pablo RVT. Right Leg: The [...] Bharath Cortez MD FACS 11/27/2024 5:45:35 PM VAULT CASHIER Procedure Note Bharath Cortez MD - 11/27/2024 [facility] - Department of Vascular Surgery,Vascular Laboratory [address] [place] [address] Lower Extremity Arterial Duplex - Bypass Graft Report Patient Name: JEFFERY HAMILTON : 1970 Study Date: 11/27/2024 10:06:16 AM Gender: F Tech: [place] Location: [facility] Provider: MADELYN VICENTE Quality: Adequate Order Provider: [...] 47 cm/s Right Value Units FINDINGS: Performing Market Maker: Dolores Pablo RVT. Right Leg: The [...] Electronically Signed By: Bharath Cortez MD [facility] 11/27/2024 5:45:35 PM VAULT CASHIER us Madelyn Vicente MD PhD IMG US PROCEDURES Kelsea l Result * US Arterial Doppler Lower Extremity Bilateral (11/27/2024 11:09 AM VAULT CASHIER) Anatomical Region Laterality Modality Vascular Bilateral Ultrasound 11/27/2024 10:2 5 AM VAULT CASHIER Narrative 11/27/2024 6:44 PM VAULT CASHIER [facility] - Department of Vascular Surgery, Vascular Laboratory [address] [place] [address] Lower Extremity Arterial Doppler Report Patient Name: JEFFERY HAMILTON : 1970 Study Date: 11/27/2024 10:25:00 AM Gender: F Tech: Dolores Pablo Toma Location: [facility] Provider: MADELYN VICENTE Quality: Adequate Order Provider: MADELYN VICENTE PROCEDURES: Arterial Report: Bilateral lower extremity arterial Doppler exam at rest. INDICATIONS: Z48.812 Encounter for surgical aftercare following surgery on the circulatory system and I73.9 Peripheral vascular disease, unspecified. MEASUREMENTS: Right Value Units Left Value Units Rt Brachial Pressure 144 mmHg Lt Brachial Pressure 153 mmHg Rt LITIGATION PARTNER Pressure 131 mmHg Lt LITIGATION PARTNER Pressure 131 mmHg Rt DPA Pressure 127 mmHg Lt DPA Pressure 125 mmHg Rt 1st Digit Pressure 90 mmHg Lt 1st Digit Pressure 75 mmHg Rt PT KAROLYN Resting 0.86 Lt PT KAROLYN Resting 0.86 Rt AT KAROLYN Resting 0.83 Lt AT KAROLYN Resting 0.82 Rt Digit/Arm Index 0.59 Lt Digit/Arm Index 0.49 Right Value Units Left Value Units FINDINGS: Performing Market Maker: Dolores Pablo RVT. Right Common Femoral [...] Bharath Cortez MD FACS 11/27/2024 5:46:29 PM VAULT CASHIER Procedure Note Bharath Cortez MD - 11/27/2024 [facility] - Department of Vascular Surgery,Vascular Laboratory [address] [place] [address] Lower Extremity Arterial Doppler Report Patient Name: JEFFERY HAMILTON : 1970 Study Date: 11/27/2024 10:25:00 AM Gender: F Tech: Dolores Pablo [place]oma Location: [facility] Ref Provider: MADELYN VICENTE Quality: Adequate Order Provider: MADELYN VICENTE PROCEDURES: Arterial Report: Bilateral lower extremity arterial Doppler exam at rest. INDICATIONS: Z48.812 Encounter for surgical aftercare following surgery on thecirculatory system and I73.9 Peripheral vascular disease, unspecified. MEASUREMENTS: Right Value Units Left Value Units Rt Brachial Pressure 144 mmHg Lt Brachial Pressure 153 mmHg Rt LITIGATION PARTNER Pressure 131 mmHg Lt LITIGATION PARTNER Pressure 131 mmHg Rt DPA Pressure 127 mmHg Lt DPA Pressure 125 mmHg Rt 1st Digit Pressure 90 mmHg Lt 1st Digit Pressure 75 mmHg Rt PT KAROLYN Resting 0.86 Lt PT KAROLYN Resting 0.86 Rt AT KAROLYN Resting 0.83 Lt AT KAROLYN Resting 0.82 Rt Digit/Arm Index 0.59 Lt Digit/Arm Index 0.49 Right Value Units Left Value Units FINDINGS: Performing Market Maker: Dolores Pablo RVT. Right Common Femoral [...] Electronically Signed By: Bharath Cortez MD [facility] 11/27/2024 5:46:29 PM VAULT CASHIER [facility] Cindy Vicente MD PhD IMG US PROCEDURES Kelsea l Result * eGFR (10/28/2024 2:02 PM VAULT CASHIER) eGFR 69 >=60 mL/min/1. 73 m2 Comment: [...] last reviewed 2021. Blood 10/28/2024 2:02 PM VAULT CASHIER 10/28/2024 2:02 PM VAULT CASHIER Kirsten Roa NP LAB BLOOD ROSETTE TUTTLE Final Result [facility] [place] [address] * (ABNORMAL) Differential, auto (10/28/2024 2:02 PM VAULT CASHIER) Neutrophil abs 11.4(H) 1.5 - 6.5 K/cumm Comment:Testing performed by : [facility], [address] [place] [address] Imm gran abs 0.1 0.0 - 0.1 K/cumm [facility] Lymphocyte abs 4.6(H) 0.8 - 3.3 K/cumm [facility] Monocyte abs 0.9(H) 0.2 - 0.8 K/cumm [facility] Eosinophil abs 0.3 0.0 - 0.5 K/cumm [facility] Basophil abs 0.1 0.0 - 0.1 K/cumm [facility] Neutrophil pct 65.8 % [facility] Comment: Interpretive Data Percent cell count reference ranges are not reported, since discordance with absolute values may lead to misinterpretation of CBC data. Current Interpretive Data was last revised on 2018. Imm gran pct 0.5 % [facility] Comment: Interpretive Data Percent cell count reference ranges are not reported, since discordance with absolute values may lead to misinterpretation of CBC data. Current Interpretive Data was last revised on 2018. Lymphocyte pct 26.3 % [facility] Comment: Interpretive Data Percent cell count reference ranges are not reported, since discordance with absolute values may lead to misinterpretation of CBC data. Current Interpretive Data was last revised on 2018. Monocyte pct 5.3 % [facility] Comment: Interpretive Data Percent cell count reference ranges are not reported, since discordance with absolute values may lead to misinterpretation of CBC data. Current Interpretive Data was last revised on 2018. Eosinophil pct 1.6 % [facility] Comment: Interpretive Data Percent cell count reference ranges are not reported, since discordance with absolute values may lead to misinterpretation of CBC data. Current Interpretive Data was last revised on 2018. Basophil pct 0.5 % [facility] Comment: Interpretive Data Percent cell count reference ranges are not reported, since discordance with absolute values may lead to misinterpretation of CBC data. Current Interpretive Data was last revised on 2018. Blood 10/28/2024 2:02 PM VAULT CASHIER 10/28/2024 2:02 PM VAULT CASHIER Kirsten Roa NP LAB BLOOD ORDE RABLES Final Result Performing Organization Address [facility]/ZIP Co de Phone Number [facility] [place] [address] * (ABNORMAL) Iron profile w/ IBC (10/28/2024 2:02 PM VAULT CASHIER) Pathologist [facility] Iron 14(L) 35 - 145 mcg/dL TIBC 274 250 - 400 mcg/dL [facility] Transferrin saturation 5(L) 20 - 50 % [facility] Blood 10/28/2024 2:02 PM VAULT CASHIER 10/28/2024 3:30 PM VAULT CASHIER us Flynn Ma MD LAB BLOOD ORDERABLES Final R esult [facility] [place] [place] [address] * (ABNORMAL) CBC with auto differential (10/28/2024 2:02 PM VAULT CASHIER) WBC 17.3(H) 3.8 - 9.9 K/cumm Comment:Testing performed by : [facility], [address] [place] [address] [place] [address] Hgb 8.8(L) 11.9 - 15.5 g/dL [facility] Comment:Testing performed by : [address] [address] Hct 31.2(L) 35.6 - 45.5 % [facility] Comment:Testing performed by : [address] [address] Plt 430(H) 150 - 400 K/cumm [facility] Comment:Testing performed by : [address] [address] MPV 9.0(L) 9.1 - 12.3 fL [facility] RBC 4.33 3.90 - 5.20 M/cumm [facility] MCV 72.1(L) 81.3 - 96.4 fL [facility] MCH 20.3(L) 27.1 - 33.3 pg [facility] MCHC 28.2(L) 32.3 - 35.7 g/dL [facility] RDW CV 19.4(H) 11.1 - 14.9 % [facility] RDW SD 49.3(H) 35.7 - 48.1 fL [facility] NRBC abs 0.02(H) 0.00 - 0.01 K/cumm [facility] Blood 10/28/2024 2:02 PM VAULT CASHIER 10/28/2024 2:02 PM VAULT CASHIER Kirsten Roa NP LAB BLOOD ROSETTE TUTTLE Final Result [facility] [place] [address] * Lactate dehydrogenase (LD) (10/28/2024 2:02 PM VAULT CASHIER) Lactate dehydrogenase (LDH) 160 100 - 250 Units/L Comment:Testing performed by : [address] [address] Blood 10/28/2024 2:02 PM VAULT CASHIER 10/28/2024 2:02 PM VAULT CASHIER Kirsten Negrita Roa GAMING CAGE WORKER LAB BLOOD ORDE RABFRANSISCO Final Result Performing Organization Address [facility] Co de Phone Number [facility] [place] [address] * Ferritin (10/28/2024 2:02 PM VAULT CASHIER) Ferritin 13 13 - 150 ng/mL Blood 10/28/2024 2:02 PM VAULT CASHIER 10/28/2024 3:30 PM VAULT CASHIER Flynn Ma MD LAB BLOOD ORDERABLES Final R esult Performing Organization Address [facility] [place] [address] * (ABNORMAL) Beta 2 microglobulin, serum (10/28/2024 2:02 PM VAULT CASHIER) Beta 2 Microglobulin, Serum 3.20(H) 1.00 - 2.50 mg/L Comment: Interpretive Data The Jose Beta-2 microglobulin assay procedure was used. Results from different manufacturers or methods may not be comparable. Serial testing should be performed using the same method. Blood 10/28/2024 2:02 PM VAULT CASHIER 10/28/2024 3:24 PM VAULT CASHIER Kirsten Negrita Roa GAMING CAGE WORKER LAB BLOOD ORDE RABFRANSISCO Final Result Performing Organization Address [facility] de Phone Number [place], [place] [id number] * (ABNORMAL) Comprehensive metabolic panel (10/28/2024 2:02 PM VAULT CASHIER) Sodium 144 135 - 145 mmol/L Comment:Testing performed by : [facility], [address] [place] [address] Potassium, pl 3.9 3.3 - 4.9 mmol/L [facility] Chloride 108 97 - 110 mmol/L [facility] CO2 26 22 - 32 mmol/L [facility] Anion gap 10 2 - 15 mmol/L [facility] BUN 29(H) 6 - 25 mg/dL [facility] Creatinine 0.99 0.60 - 1.10 mg/dL [facility] Glucose 106 70 - 199 mg/dL [facility] Comment: Interpretive Data Fasting glucose >/= [...] 2022. Calcium 9.1 8.5 - 10.3 mg/dL [facility] Bilirubin, total 0.2 0.1 - 1.2 mg/dL [facility] Comment:Repeated and verifie d. Protein, pl 6.7 6.5 - 8.5 g/dL [facility] Albumin 4.0 3.5 - 5.0 g/dL [facility] Alk phos 102 40 - 130 Units/L [facility] ALT 8 7 - 45 Units/L [facility] AST 12 10 - 45 Units/L [facility] Blood 10/28/2024 2:02 PM VAULT CASHIER 10/28/2024 2:02 PM VAULT CASHIER Kirsten Roa NP LAB BLOOD ROSETTE TUTTLE Final Result [facility] [place] [address] * ANGIOGRAM (10/16/2024 3:19 PM VAULT CASHIER) Anatomical Region Laterality Modality X-Ray Angiograph y Narrative 10/16/2024 7:48 PM VAULT CASHIER Please see OpNote for result. Result [facility] Madelyn Vicente MD PhD SURGICAL CASE ORDERS F inal Result * ANGIOPLASTY BALLOON PERCUTANEOUS (10/16/2024 3:19 PM VAULT CASHIER) Anatomical Region Laterality Modality X-Ray Angiograph y Narrative 10/16/2024 7:48 PM VAULT CASHIER Please see OpNote for result. Result [facility] Madelyn Vicente MD PhD CV CARDIAC CATH PROCED URES Final Result * FL Fluoroscopy < 1 Hour (10/16/2024 2:45 PM VAULT CASHIER) Narrative [email or web address] - 10/16/2024 2:48 PM VAULT CASHIER The images from this study are not interpreted by Radiology. Please refer to the physician's procedure / OR operative note. Result [facility] Madelyn Vicente MD PhD IMG FLUOROSCOPY PROCED URES Final Result Performing Organization Address [facility]/ZIP Co de Phone Number [email or web address] * POCT Activated clotting time, low range (10/16/2024 2:40 PM VAULT CASHIER) ACT 128 123 - 168 sec POC Performer [id number] [facility] POC Device Number [id number] [facility] Blood 10/16/2024 2:40 PM VAULT CASHIER 10/16/2024 2:40 PM VAULT CASHIER Result [facility] Madelyn Vicente MD PhD LAB POCT ORDERABLES - DEVICE Final Result [facility] [place] [address] * (ABNORMAL) POCT Activated clotting time, low range (10/16/2024 2:19 PM VAULT CASHIER) ACT 227(H) 123 - 168 sec POC Performer [id number] [facility] POC Device Number [id number] [facility] Blood 10/16/2024 2:19 PM VAULT CASHIER 10/16/2024 2:19 PM VAULT CASHIER Madelyn Vicente MD PhD LAB POCT ORDERABLES - DEVICE Final Result Performing Organization Address [facility] Co de Phone Number [facility] Department [place] [address] * Type and screen (10/16/2024 12:21 PM VAULT CASHIER) Ella, indirect Negative ABO Rh A Positive [facility] Blood 10/16/2024 12:2 1 PM VAULT CASHIER 10/16/2024 1:03 PM VAULT CASHIER Narrative [facility] - 10/16/2024 1:50 PM VAULT CASHIER Has the patient had Daratumumab or Isatuximab in the past 6 months?->Unknown Valentino Menezes MD LAB BLOOD BANK TEST ORDERABLES F inal Result Performing Organization Address [facility] Co de Phone Number [facility] [place] [address] * eGFR (10/11/2024 4:29 PM VAULT CASHIER) eGFR 65 >=60 mL/min/1. 73 m2 Comment: [...] last reviewed 2021. Blood 10/11/2024 4:29 PM VAULT CASHIER 10/11/2024 5:01 PM VAULT CASHIER Mustapha George MD LAB BLOOD ORDERABLES Final R esult Performing Organization Address [facility]/ZIP Co de Phone Number [facility] [place] [address] * (ABNORMAL) CBC without differential (10/11/2024 4:29 PM VAULT CASHIER) WBC 14.2(H) 3.8 - 9.9 K/cumm Hgb 9.5(L) 11.9 - 15.5 g/dL [facility] Hct 33.7(L) 35.6 - 45.5 % [facility] Plt 580(H) 150 - 400 K/cumm [facility] MPV 9.8 9.1 - 12.3 fL [facility] RBC 4.64 3.90 - 5.20 M/cumm [facility] MCV 72.6(L) 81.3 - 96.4 fL [facility] MCH 20.5(L) 27.1 - 33.3 pg [facility] MCHC 28.2(L) 32.3 - 35.7 g/dL [facility] RDW CV 18.7(H) 11.1 - 14.9 % [facility] RDW SD 48.2(H) 35.7 - 48.1 fL [facility] NRBC abs 0.00 0.00 - 0.01 K/cumm [facility] Blood 10/11/2024 4:29 PM VAULT CASHIER 10/11/2024 5:01 PM VAULT CASHIER us Mustapha George MD LAB BLOOD ORDERABLES Final R esult Performing Organization Address [facility]/ZIP Co de Phone Number [facility] [place] [address] * Type and screen (10/11/2024 4:29 PM VAULT CASHIER) ABO Rh A Positive Ella, indirect Negative [facility] Blood 10/11/2024 4:29 PM VAULT CASHIER 10/11/2024 5:30 PM VAULT CASHIER Narrative [facility] - 10/11/2024 6:38 PM VAULT CASHIER Has the patient had Daratumumab or Isatuximab in the past 6 months?->Unknown Mustapha George MD LAB BLOOD BANK TEST ORDERABL ES Final Result [facility] [place] [address] * (ABNORMAL) Basic metabolic panel (10/11/2024 4:29 PM VAULT CASHIER) Sodium 146(H) 135 - 145 mmol/L Potassium, pl 3.9 3.3 - 4.9 mmol/L [facility] Chloride 108 97 - 110 mmol/L [facility] CO2 24 22 - 32 mmol/L [facility] Anion gap 14 2 - 15 mmol/L [facility] BUN 12 6 - 25 mg/dL [facility] Creatinine 1.04 0.60 - 1.10 mg/dL [facility] Glucose 82 70 - 199 mg/dL [facility] Comment: Interpretive Data Fasting glucose >/= [...] 2022. Calcium 9.3 8.5 - 10.3 mg/dL [facility] Blood 10/11/2024 4:29 PM VAULT CASHIER 10/11/2024 5:01 PM VAULT CASHIER us Mustapha George MD LAB BLOOD ORDERABLES Final R esult [facility]ITCHIE [facility] [place] [address] * CTA Abdominal Aorta And Bilateral Iliofemoral Runoff (10/07/2024 1:09 PM VAULT CASHIER) Anatomical Region Laterality Modality Body Bilateral Computed Tomogra phy 10/07/2024 2:47 PM VAULT CASHIER Impressions 10/07/2024 2:53 PM VAULT CASHIER 1. Right lower extremity: Revision of the [...] Mor Pugh M.D. Narrative 10/07/2024 2:53 PM VAULT CASHIER EXAMINATION: CT ANGIOGRAPHY OF THE ABDOMEN, PELVIS, [...] Lower Extremity Right Limited (09/26/2024 11:38 AM VAULT CASHIER) Anatomical Region Laterality Modality Vascular Right Ultrasound 09/26/2024 11:0 0 AM VAULT CASHIER Narrative 09/28/2024 12:40 PM VAULT CASHIER [employer] [facility] [employer] [facility] - Department of Vascular Surgery, Vascular Laboratory [address] [place] [address] Lower Extremity Arterial Duplex - Bypass Graft Report Patient Name: JEFFERY HAMILTON : 1970 Study Date: 09/26/2024 11:00:54 AM Gender: F Tech: [place] Location: [facility] Ref Provider: MADELYN VICENTE Quality: Adequate Order Provider: MADELYN VICENTE PROCEDURES: Arterial Report: Right Femoral - AK Popliteal Bypass Graft. 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 MEASUREMENTS: Right Value Units Rt Inflow Artery 34 cm/s Rt Proximal Anastomosis 25 cm/s Rt Proximal Graft 48 cm/s Rt Mid Graft 61 cm/s Rt Distal Graft 52 cm/s Rt Outflow Artery 18 cm/s Right Value Units - FINDINGS: Performing Market Maker: Magdalene Mack RVT. Right Leg: The [...] Electronically Signed By: Willy Medellin MD [facility] 09/28/2024 12:39:24 PM VAULT CASHIER Procedure Note Willy Medellin MD - 09/28/2024 [facility] - Department of Vascular Surgery,Vascular Laboratory [address] [place] [address] Lower Extremity Arterial Duplex - Bypass Graft Report Patient Name: JEFFERY HAMILTON : 1970 Study Date: 09/26/2024 11:00:54 AM Gender: F Tech: [place] Location: [facility] Provider: MADELYN VICENTE Quality: Adequate Order Provider: MADELYN VICENTE PROCEDURES: Arterial Report: Right Femoral - AK Popliteal Bypass Graft. INDICATIONS: I70.211 Atherosclerosis of [place] tribe arteries of extremities withintermittent claudication, right leg and Z48.812 Encounter for surgical aftercare following surgeryon the circulatory system. MEASUREMENTS: Right Value Units Rt Inflow Artery 34 cm/s Rt Proximal Anastomosis 25 cm/s Rt Proximal Graft 48 cm/s Rt Mid Graft 61 cm/s Rt Distal Graft 52 cm/s Rt Outflow Artery 18 cm/s Right Value Units - FINDINGS: Performing Market Maker: Magdalene Mack RVT. Right Leg: The [...] Electronically Signed By: Willy Medellin MD [facility] 09/28/2024 12:39:24 PM VAULT CASHIER [facility] Cindy Vicente MD PhD IMG US PROCEDURES Kelsea l Result * US Arterial Doppler Lower Extremity Bilateral (09/26/2024 11:38 AM VAULT CASHIER) Anatomical Region Laterality Modality Vascular Bilateral Ultrasound 09/26/2024 11:0 3 AM VAULT CASHIER Narrative 09/28/2024 12:36 PM VAULT CASHIER [facility] - Department of Vascular Surgery, Vascular Laboratory [address] [place] [address] Lower Extremity Arterial Doppler Report Patient Name: JEFFERY HAMILTON : 1970 Study Date: 09/26/2024 11:03:00 AM Gender: F Tech: Magdalene Mack RVT Location: [facility] Provider: MADELYN VICENTE Quality: Adequate Order Provider: MADELYN VICENTE PROCEDURES: Arterial Report: Bilateral lower extremity arterial Doppler exam at rest. INDICATIONS: Z48.812 Encounter for surgical aftercare following surgery on the circulatory system. MEASUREMENTS: Right Value Units Left Value Units Rt Brachial Pressure 133 mmHg Lt Brachial Pressure 129 mmHg Rt LITIGATION PARTNER Pressure 66 mmHg Lt LITIGATION PARTNER Pressure 99 mmHg Rt DPA Pressure 64 mmHg Lt DPA Pressure 101 mmHg Rt 1st Digit Pressure 66 mmHg Lt 1st Digit Pressure 45 mmHg Rt PT KAROLYN Resting 0.5 Lt PT KAROLYN Resting 0.74 Rt AT KAROLYN Resting 0.48 Lt AT KAROLYN Resting 0.76 Rt Digit/Arm Index 0.5 Lt Digit/Arm Index 0.34 Right Value Units Left Value Units - FINDINGS: Performing Market Maker: Magdalene Mack RVT. Right All Levels: [...] Willy Medellin MD FACS 09/28/2024 12:35:48 PM VAULT CASHIER Procedure Note Willy Medellin MD - 09/28/2024 [facility] - Department of Vascular Surgery,Vascular Laboratory [address] [place] [address] Lower Extremity Arterial Doppler Report Patient Name: JEFFERY HAMILTON : 1970 Study Date: 09/26/2024 11:03:00 AM Gender: F Tech: Magdalene Mack Toma Location: [facility] Ref Provider: MADELYN VICENTE Quality: Adequate Order Provider: MADELYN VICENTE PROCEDURES: Arterial Report: Bilateral lower extremity arterial Doppler exam at rest. INDICATIONS: Z48.812 Encounter for surgical aftercare following surgery on thecirculatory system. MEASUREMENTS: Right Value Units Left ValueUnits Rt Brachial Pressure 133 mmHg Lt Brachial Pressure 129mmHg Rt LITIGATION PARTNER Pressure 66 mmHg Lt LITIGATION PARTNER Pressure 99mmHg Rt DPA Pressure 64 mmHg Lt DPA Pressure 101mmHg Rt 1st Digit Pressure 66 mmHg Lt 1st Digit Pressure 45mmHg Rt PT KAROLYN Resting 0.5 Lt PT KAROLYN Resting 0.74 Rt AT KAROLYN Resting 0.48 Lt AT KAROLYN Resting 0.76 Rt Digit/Arm Index 0.5 Lt Digit/Arm Index 0.34 Right Value Units Left ValueUnits - FINDINGS: Performing Market Maker: Magdalene Mack RVT. Right All Levels: [...] Willy Medellin MD FACS 09/28/2024 12:35:48 PM VAULT CASHIER us [facility] Cindy Vicente MD PhD IMG US PROCEDURES [place] l Result from Last 3 Months Additional Health Concerns Infection Onset Date Last Indicated MDR gram neg/ESBL 07/23/2024 08/01/2024 Insurance MEDICARE SOLUTIONS [facility] [address] [place] [address] MEDICARE MEDICARE SOLUTIONS Advance Directives For more information, please contact: [phone] * Full Code (Latest Code Status on [...] 10:15 AM 07/03/2024 11:02 AM Care Teams [employer] Information Clerk Relationship Specialty Start Date End Date Mor Blancas MD [address] [place] [address] PCP - General Emergency Medicine 03/25/24 Flynn Ma MD [address] [facility] [address] [place] [address] Medical Oncologist/Printing Film Stripper Medical Oncology 09/28/18 Colleen Diaz MD [address] [place] [address] Referring Physician Nephrology 03/24/22 Derek Wilson MD [address] [place] [address] Referring Physician Obstetrics and Gynecology 06/26/23 Mar Jay MD [address] [place] [address] Surgeon Vascular Surgery 08/24/23 Mitch Austin DO [address] [place] [address] Surgeon Surgery 09/26/23 Madelyn Vicente MD PhD [id number] [place] [address] Registered Nurse Vascular Surgery 07/05/24 Eric Washington MD [address] [place] [address] Consulting Physician Plastic Surgery 07/29/24
--- OUTSIDE RECORDS SUMMARY | 2024-12-13 07:34 | XMS_ITS | Clinical Summary ---
Author Organization [facility] Address [address] [place] [address] Care Team Providers Care Head Buyer Tobacco Name Role Phone Chester Banks MD Primary Care Provider Eder coats Allergies No known active allergies Social History Tobacco Use Types Packs/Day Years Used Date Smoking Tobacco: Never Assessed Comments Unknown Sex and Gender Information Value Date Recorded Sex Assigned at Not on file Legal Sex Female 10:28 AM TOW OPERATOR Gender Identity Not on file Sexual Orientation [...] age to complete this topic Care Teams Head Buyer Tobacco Relationship Specialty Start Date End Date Chester Banks MD PCP - General SURGERY 08/10/18
--- OUTSIDE RECORDS SUMMARY | 2024-12-13 07:34 | XMS_ITS | Clinical Summary ---
Author Organization [facility] Address [address] [place] [address] Care Team Providers Care Chief Of Field Operations Name Role Phone Flynn Ma MD Unavailable [phone] Colleen Diaz MD Unavailable Derek Wilson MD Unavailable [phone] Mar Jay MD Unavailable [phone] Mitch Austin DO Unavailable [phone] Mor Blancas MD Primary Care Provide r Madelyn Vicente MD PhD Unavailable [phone] Eric Washington MD Unavailable [phone] Allergies Active Allergy Reactions Criticality Noted Date [...] 07/02/2024 Assessment & Plan (10/16/2024 2:41 PM HOGSHEAD PACKER): Has chronic abdominal pain due to likely [...] 07/01/2024 Assessment & Plan (10/16/2024 2:42 PM HOGSHEAD PACKER): Hx RLE arterial occlusion/DVT 07/2023; h/o splenic [...] 07/01/2024 Assessment & Plan (10/16/2024 2:40 PM HOGSHEAD PACKER): Patient with previous right lower extremity bypass [...] 07/22: emergent OR s/p thrombectomy of R MEDICAL REFERRAL COORDINATOR, bypass graft, below knee popliteal. R groin [...] lateral thigh PRS: Prolene sutures. 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 Wound vac to thigh replaced Assessment & [...] 06/26/2023. Held Plavix/Eliquis due to bleeding. - Hostess consult on 08/08 - Hold home medication [...] 2016, in remission April 2023. Follows with [facility]. Resolved Problems Problem Noted Date Diagnosed Date Resolved Date Urinary tract infection 08/07/2023 06/0 12/2023 Overview (08/07/2023): Recently hospitalized at [place] for pyelonephritis. Discharged on Keflex (08/01-08/10). - Continue cephalexin 500 mg BID. Assessment & Plan (08/07/2023 10:53 PM CDT): Recently hospitalized at [place] for pyelonephritis. Discharged on Keflex (08/01-08/10). - Continue cephalexin 500 mg BID. Flu vaccine need 09/07/2022 08/07/2023 Dehydration 06/27/2022 08/07/2023 Immunocompromised 05/18/2022 08/07/2023 Encounters Date Type Department Care Team Description 12/12/2024 Telephone [facility] Vascular Surgery [address] [place] [address] Medical Office Building [address] [place] [address] Franco Robertson, JOSE 12/04/[address] [facility] Advanced Medicine ([facility]) - [facility] Minimally Invasive Surgery [address] [facility] 12th Floor, [place] [address] Mor Jain MD PhD Medical Question/Miscellane ous 11/27/2024 11:00 AM HOGSHEAD PACKER Office Visit [facility] Surgery [address] [facility] 8th [place] [address] [place] [address] Madelyn Vicente MD PhD Encounter for surgical aftercare following surgery on the circulatory system (Primary Dx) 11/27/2024 10:15 AM HOGSHEAD PACKER Ancillary Procedure [facility] Vascular Lab at the [facility] [address] [facility] 8th [place] [address] [place] [address] Encounter for surgical aftercare following surgery on the circulatory system; PAD (peripheral artery disease); Presence of other vascular implants and grafts 11/25/2024 Orders Only [facility] Surgery [address] [facility] Floor 1 [place] [address] Madelyn Vicente MD PhD Encounter for surgical aftercare following surgery on the circulatory system (Primary Dx); Presence of other vascular implants and grafts 11/21/2024 Telephone [facility] ([facility]) [facility] Minimally Invasive Surgery [address] [facility] 12th Floor, [place] [address] Mor Jain MD PhD Medical Question/Miscellane ous 11/11/2024 1:00 PM HOGSHEAD PACKER Infusion [address] [address] Iron deficiency anemia, unspecified iron deficiency anemia type (Primary Dx); Anemia, unspecified type 11/04/2024 1:00 PM HOGSHEAD PACKER Infusion [address] [address] Iron deficiency anemia, unspecified iron deficiency anemia type (Primary Dx); Anemia, unspecified type 11/04/2024 Telephone [facility] ([facility]) [facility] Minimally Invasive Surgery [address] [place] [address] 12th Floor, [place] [address] Mor Jain MD PhD Scheduling Appointments 10/30/2024 Orders Only [facility] Oncology [address] [facility] Floor 6 [place] [address] Mireya Briceno RN 10/30/2024 Orders Only [facility] Oncology [address] [facility] [address] 6 [place] [address] Mireya Briceno, WILBERTO 10/29/2024 Orders Only [facility] Oncology [address] [facility] [address] 6 [place] [address] Kirsten Roa NP Anemia, unspecified type (Primary Dx) 10/28/2024 3:15 PM HOGSHEAD PACKER Office Visit [facility] Oncology [address] [place] [address] Kirsten Roa NP Chronic lymphoid leukemia, without mention of having achieved remission(204.10) (HCC) (Primary Dx); Anemia, unspecified type 10/28/2024 2:30 PM HOGSHEAD PACKER Lab [facility] [address] [place] [address] Chronic lymphoid leukemia, without mention of having achieved remission(204.10) (HCC) 10/23/2024 Telephone [facility] Surgery [address] [facility] 6th [place] [address] Aracelis Purcell NP 10/18/2024 Orders Only [facility] Surgery [address] [facility] 2nd Floor [address] [place] [address] Madelyn Vicente MD PhD Encounter for surgical aftercare following surgery on the circulatory system (Primary Dx); PAD (peripheral artery disease) 10/16/2024 12:34 PM HOGSHEAD PACKER Anesthesia Event [facility] Operating Room 1 [place] [address] Valentino Menezes MD 10/16/2024 12:20 PM HOGSHEAD PACKER - 10/16/2024 4:15 PM HOGSHEAD PACKER Surgery [facility] Operating Room [address] [place] [address] Madelyn Vicente MD PhD Angiogram 10/16/2024 9:18 AM HOGSHEAD PACKER - 10/16/2024 6:50 PM HOGSHEAD PACKER Hospital Encounter [facility] Operating Room [address] [place] [address] Madelyn Vicente MD PhD PAD (peripheral artery disease) Discharge Disposition: Discharge to home or self care 10/14/2024 Telephone [facility] Surgery [address] [facility] [address] 1 [place] [address] Madelyn Vicente MD PhD 10/11/2024 11:59 PM HOGSHEAD PACKER Anesthesia Event [facility] Operating Room [address] [place] [address] Mustapha George MD 10/11/2024 2:00 PM HOGSHEAD PACKER Pre-Admission Testing [facility] for Preoperative Assessment and Planning [facility] Advanced Medicine ([facility]) [address] [place] [address] Preoperative testing (Primary Dx) 10/07/2024 12:44 PM HOGSHEAD PACKER - 10/07/2024 11:59 PM HOGSHEAD PACKER Hospital Encounter [facility] [address] [place] [address] PAD (peripheral artery disease) Discharge Disposition: Discharge to home or self care 10/07/2024 10:15 AM HOGSHEAD PACKER Office Visit [facility] Vascular Surgery [address] [place] [address] Medical Office Building [address] [place] [address] Madelyn Vicente MD PhD PAD (peripheral artery disease) (Primary Dx) 10/07/2024 Documentation [facility] Vascular Surgery [address] [place] [address] Medical Office Building [address] [place] [address] Madelyn iVcente MD PhD 09/26/2024 11:00 AM HOGSHEAD PACKER Ancillary Procedure 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 Surgery [facility] 6th [place] [address] [place] [address] Aracelis Purcell NP Acute lower limb ischemia [...] drink = 0.6 oz pur e alcohol) [facility] Utilities Answer Date Recorded In the past 12 months has [employer], oil, or water [employer] threatened to shut off services in your [...] How often do you attend chur or sabianism services? Never 07/24/2024 Do you belong to any clubs o r organizations such as yazidism groups, unions, fraternal or athletic groups, or [...] the past [address] [facility], were you homeless or living in a halfway (including now)? No 07/24/2024 Personal Safety Answer Date Recorded Have you ever been in or are you currently in a harmful physical or emotional relationship or is someone making you feel afraid or unsafe? Denies 10/16/2024 Comments No Sex and Gender Information Value Date Recorded Sex Assigned at Not on file 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 HOGSHEAD PACKER Gender Identity Female 03/14/2022 6:19 PM CDT Sexual Orientation Not on file Obstetrics History Last Filed Vital Signs Vital Sign Reading Time Taken Comments Blood Pressure 136/73 11/27/2024 10:59 AM HOGSHEAD PACKER Pulse 54 11/27/2024 10:59 AM HOGSHEAD PACKER Temperature 36.6 C (97.9 F) 11/11/2024 1:41 PM HOGSHEAD PACKER Respiratory Rate 16 11/11/2024 1:51 PM HOGSHEAD PACKER Oxygen Saturation 97% 11/27/2024 10:59 AM HOGSHEAD PACKER Inhaled Oxygen Concentration - - Weight 97.1 kg (214 lb) 11/27/2024 10:59 AM HOGSHEAD PACKER Height 162.6 cm (5' 4 ) 11/27/2024 10:59 AM HOGSHEAD PACKER Body Mass Index 36.73 11/27/2024 10:59 AM HOGSHEAD PACKER Plan of Treatment Health Maintenance Due Date [...] 07/15/20 24 Medical Devices Implanted Type Area Community Music Therapist Device Identifier Shelf Expiration Date Model / Serial / Lot [employer] Riki Patch Vascuguard 0.88cm [id number] - [id number] Implanted:Qty : 1 on 07/01/2024 by Madelyn Vicente MD PhD at [facility] Other - see comments Right: Common Femoral Artery [employer] Riki [id number] 10/02/2025 [id number] / / [id number] [employer] Restrata Mini Matrix 100mg Micronized Powder Rmini-100 - [id number] Implanted:Qty : 1 on 07/16/2024 by Madelyn Vicente MD PhD at [facility] Right: Groin [employer] 07/11/2025 RMINI-10 0 [employer]ler[employer] Patch Vascuguard 0.88cm [id number] - [id number] - [id number] Implanted:Qty : 1 on 07/22/2024 by Madelyn Vicente MD PhD at [facility] Right: Knee [employer] [id number] 02/19/2026 [id number] / [id number] Procedures Procedure Name Priority Date/Time Associated Diagnosis Comments US ARTERIAL DUPLEX LOWER EXTREMITY RIGHT LIMITED Routine 11/27/2024 11:09 AM HOGSHEAD PACKER Encounter for surgical aftercare following surgery on the circulatory system Presence of other vascular implants and grafts US ARTERIAL DOPPLER LOWER EXTREMITY BILATERAL Routine 11/27/2024 11:09 AM HOGSHEAD PACKER Encounter for surgical aftercare following surgery on the circulatory system PAD (peripheral artery disease) IRON PROFILE W/ IBC Routine 10/28/2024 2 :02 PM HOGSHEAD PACKER Chronic lymphoid leukemia, without mention of having achieved remission(204.10) (HCC) FERRITIN Routine 10/28/2024 2:02 PM HOGSHEAD PACKER Chronic lymphoid leukemia, without mention of having achieved remission(204.10) (HCC) EGFR Routine 10/28/2024 2:02 PM HOGSHEAD PACKER Chronic lymphoid leukemia, without mention of having achieved remission(204.10) (HCC) DIFFERENTIAL AUTO Routine 10/28/2024 2:0 2 PM HOGSHEAD PACKER Chronic lymphoid leukemia, without mention of having achieved remission(204.10) (HCC) BETA 2 MICROGLOBULIN SERUM Routine 10/28/2024 2:02 PM HOGSHEAD PACKER Chronic lymphoid leukemia, without mention of having achieved remission(204.10) (HCC) CBC WITH AUTO DIFFERENTIAL Routine 10/28/2024 2:02 PM HOGSHEAD PACKER Chronic lymphoid leukemia, without mention of having achieved remission(204.10) (HCC) COMPREHENSIVE METABOLIC PANEL Routine 10/28/2024 2:02 PM HOGSHEAD PACKER Chronic lymphoid leukemia, without mention of having achieved remission(204.10) (HCC) LACTATE DEHYDROGENASE Routine 10/28/2024 2:02 PM HOGSHEAD PACKER Chronic lymphoid leukemia, without mention of having achieved remission(204.10) (HCC) CV HYBRID ROOM (DEFAULT ORDERABLE) Routine 10/16/2024 3:19 PM HOGSHEAD PACKER PAD (peripheral artery disease) VASCULAR SURGERY PROCEDURE Routine 10/16/2024 3:19 PM HOGSHEAD PACKER PAD (peripheral artery disease) FL FLUOROSCOPY < 1 HOUR IP Routine 10/16/2024 2:45 PM HOGSHEAD PACKER POCT ACTIVATED CLOTTING TIME, LOW RANGE Routine 10/16/2024 2:40 PM HOGSHEAD PACKER POCT ACTIVATED CLOTTING TIME, LOW RANGE Routine 10/16/2024 2:19 PM HOGSHEAD PACKER TYPE AND SCREEN STAT 10/16/2024 12:21 PM HOGSHEAD PACKER EGFR Routine 10/11/2024 4:29 PM HOGSHEAD PACKER Preoperative testing CBC WITHOUT DIFFERENTIAL Routine 10/11/2024 4:29 PM HOGSHEAD PACKER Preoperative testing BASIC METABOLIC PANEL Routine 10/11/2024 4:29 PM HOGSHEAD PACKER Preoperative testing TYPE AND SCREEN Routine 10/11/2024 4:29 PM HOGSHEAD PACKER Preoperative testing CTA ABDOMINAL AORTA AND BILATERAL ILIOFEMORAL RUNOFF Schedule Routine, Read Routine (OP Routine) 10/07/2024 1:09 PM HOGSHEAD PACKER PAD (peripheral artery disease) US ARTERIAL DUPLEX LOWER EXTREMITY RIGHT LIMITED Schedule Routine, Read Routine (OP Routine) 09/26/2024 11:38 AM HOGSHEAD PACKER Atherosclerosis of eklutna arteries of extremities with intermittent claudication, right leg Encounter for surgical aftercare following surgery on the circulatory system US ARTERIAL DOPPLER LOWER EXTREMITY BILATERAL Schedule Routine, Read Routine (OP Routine) 09/26/2024 11:38 AM HOGSHEAD PACKER Encounter for surgical aftercare following surgery on the circulatory system from Last 3 Months Results * US Arterial Duplex Lower Extremity Right Limited (11/27/2024 11:09 AM HOGSHEAD PACKER) Anatomical Region Laterality Modality Vascular Right Ultrasound 11/27/2024 10:0 6 AM HOGSHEAD PACKER Narrative 11/27/2024 6:44 PM HOGSHEAD PACKER [facility] - Department of Vascular Surgery, Vascular Laboratory [address] [place] [address] Lower Extremity Arterial Duplex - Bypass Graft Report Patient Name: JEFFERY HAMILTON : 1970 Study Date: 11/27/2024 10:06:16 AM Gender: F Tech: [place] Location: [facility] Ref Provider: MADELYN VICENTE Quality: Adequate [...] 47 cm/s Right Value Units FINDINGS: Performing Low Pressure Boiler Tender: Dolores Pablo RVT. Right Leg: The inflow [...] Bharath Cortez MD FACS 11/27/2024 5:45:35 PM HOGSHEAD PACKER Procedure Note Bharath Cortez MD - 11/27/2024 [facility] - Department of Vascular Surgery,Vascular Laboratory [address] [place] [address] Lower Extremity Arterial Duplex - Bypass Graft Report Patient Name: JEFFERY HAMILTON : 1970 Study Date: 11/27/2024 10:06:16 AM Gender: F Tech: [place] Location: [facility] Provider: MADELYN VICENTE Quality: Adequate Order Provider: MADELYN VICENTE PROCEDURES: Arterial Report: Femoral - AK Popliteal Bypass Graft. INDICATIONS: Z48.812 Encounter for surgical aftercare following surgery on theCuyana system and Z95.828 Presence of other vascular implants and grafts. MEASUREMENTS: Right Value Units Rt Inflow Artery 72 cm/s Rt Proximal Anastomosis 44 cm/s Rt Proximal Graft 53 cm/s Rt Mid Graft 78 cm/s Rt Distal Graft 428 cm/s Rt Distal Anastomosis 91 cm/s Rt Outflow Artery 47 cm/s Right Value Units FINDINGS: Performing Low Pressure Boiler Tender: Dolores Pablo RVT. Right Leg: The inflow [...] above. Electronically Signed By: Bharath Cortez MD [facility] 11/27/2024 5:45:35 PM HOGSHEAD PACKER us Madelyn Vicente MD PhD IMG US PROCEDURES Kelsea l Result * US Arterial Doppler Lower Extremity Bilateral (11/27/2024 11:09 AM HOGSHEAD PACKER) Anatomical Region Laterality Modality Vascular Bilateral Ultrasound 11/27/2024 10:2 5 AM HOGSHEAD PACKER Narrative 11/27/2024 6:44 PM HOGSHEAD PACKER [facility] - Department of Vascular Surgery, Vascular Laboratory [address] [place] [address] Lower Extremity Arterial Doppler Report Patient Name: JEFFERY HAMILTON : 1970 Study Date: 11/27/2024 10:25:00 AM Gender: F Tech: Dolores Pablo T Location: [facility] Ref Provider: MADLEYN VICENTE Quality: Adequate Order Provider: MADELYN VICENTE PROCEDURES: Arterial Report: Bilateral lower extremity arterial Doppler exam at rest. INDICATIONS: Z48.812 Encounter for surgical aftercare following surgery on the circulatory system and I73.9 Peripheral vascular disease, unspecified. MEASUREMENTS: Right Value Units Left Value Units Rt Brachial Pressure 144 mmHg Lt Brachial Pressure 153 mmHg Rt SYSTEM SALES CONSULTANT Pressure 131 mmHg Lt SYSTEM SALES CONSULTANT Pressure 131 mmHg Rt DPA Pressure 127 mmHg Lt DPA Pressure 125 mmHg Rt 1st Digit Pressure 90 mmHg Lt 1st Digit Pressure 75 mmHg Rt PT KAROLNY Resting 0.86 Lt PT KAROLYN Resting 0.86 Rt AT KAROLYN Resting 0.83 Lt AT KARLOYN Resting 0.82 Rt Digit/Arm Index 0.59 Lt Digit/Arm Index 0.49 Right Value Units Left Value Units FINDINGS: Performing Low Pressure Boiler Tender: Dolores Pablo RVT. Right Common Femoral Artery [...] Bharath Cortez MD FACS 11/27/2024 5:46:29 PM HOGSHEAD PACKER Procedure Note Bharath Cortez MD - 11/27/2024 [facility] - Department of Vascular Surgery,Vascular Laboratory [address] [place] [address] Lower Extremity Arterial Doppler Report Patient Name: JEFFERY HAMILTON : 1970 Study Date: 11/27/2024 10:25:00 AM Gender: F Tech: [facility] Location: [facility] Ref Provider: MADELYN VICENTE Quality: Adequate Order Provider: MADELYN VICENTE PROCEDURES: Arterial Report: Bilateral lower extremity arterial Doppler exam at rest. INDICATIONS: Z48.812 Encounter for surgical aftercare following surgery on thecirculatory system and I73.9 Peripheral vascular disease, unspecified. MEASUREMENTS: Right Value Units Left Value Units Rt Brachial Pressure 144 mmHg Lt Brachial Pressure 153 mmHg Rt SYSTEM SALES CONSULTANT Pressure 131 mmHg Lt SYSTEM SALES CONSULTANT Pressure 131 mmHg Rt DPA Pressure 127 mmHg Lt DPA Pressure 125 mmHg Rt 1st Digit Pressure 90 mmHg Lt 1st Digit Pressure 75 mmHg Rt PT KAROLYN Resting 0.86 Lt PT KAROLYN Resting 0.86 Rt AT KAROLYN Resting 0.83 Lt AT KAROLYN Resting 0.82 Rt Digit/Arm Index 0.59 Lt Digit/Arm Index 0.49 Right Value Units Left Value Units FINDINGS: Performing Low Pressure Boiler Tender: Dolores Pablo RVT. Right Common Femoral Artery [...] Bharath Cortez MD FACS 11/27/2024 5:46:29 PM HOGSHEAD PACKER us Madelyn Vicente MD PhD IMG US PROCEDURES Kelsea l Result * eGFR (10/28/2024 2:02 PM HOGSHEAD PACKER) eGFR 69 >=60 mL/min/1. 73 m2 Comment: [...] last reviewed 2021. Blood 10/28/2024 2:02 PM HOGSHEAD PACKER 10/28/2024 2:02 PM HOGSHEAD PACKER us Kirsten Roa NP LAB BLOOD ORDDorie TUTTLE Final Result [facility] Department [place] [address] * (ABNORMAL) Differential, auto (10/28/2024 2:02 PM HOGSHEAD PACKER) Neutrophil abs 11.4(H) 1.5 - 6.5 K/cumm Comment:Testing performed by : [facility], [address] [place] [address] Imm gran abs 0.1 0.0 - 0.1 K/cumm [facility] Lymphocyte abs 4.6(H) 0.8 - 3.3 K/cumm [facility] Monocyte abs 0.9(H) 0.2 - 0.8 K/cumm [facility] Eosinophil abs 0.3 0.0 - 0.5 K/cumm [facility] Basophil abs 0.1 0.0 - 0.1 K/cumm [facility] Neutrophil pct 65.8 % [facility] Comment: Interpretive Data Percent cell count reference ranges are not reported, since discordance with absolute values may lead to misinterpretation of CBC data. Current Interpretive Data was last revised on 2018. Imm gran pct 0.5 % [facility] Comment: Interpretive Data Percent cell count reference [...] revised on 2018. Blood 10/28/2024 2:02 PM HOGSHEAD PACKER 10/28/2024 2:02 PM HOGSHEAD PACKER Kirsten Roa NP LAB BLOOD ORDE PARAG Final Result Performing Organization Address City/[facility]/ZIP Co de Phone Number [facility] [place] [address] * (ABNORMAL) Iron profile w/ IBC (10/28/2024 2:02 PM HOGSHEAD PACKER) Pathologist [facility] Iron 14(L) 35 - 145 mcg/dL TIBC 274 250 - 400 mcg/dL [facility] Transferrin saturation 5(L) 20 - 50 % [facility] Blood 10/28/2024 2:02 PM HOGSHEAD PACKER 10/28/2024 3:30 PM HOGSHEAD PACKER Flynn Ma MD LAB BLOOD ORDERABLES Final R esult Performing Organization Address [facility] Co de Phone Number [facility] [place] [address] * (ABNORMAL) CBC with auto differential (10/28/2024 2:02 PM HOGSHEAD PACKER) WBC 17.3(H) 3.8 - 9.9 K/cumm Comment:Testing performed by : [address] [address] Hgb 8.8(L) 11.9 - 15.5 g/dL [facility] Comment:Testing performed by : [address] [address] Hct 31.2(L) 35.6 - 45.5 % [facility] Comment:Testing performed by : [address] [address] Plt 430(H) 150 - 400 K/cumm [facility] Comment:Testing performed by : [address] [place], [place] [address] MPV 9.0(L) 9.1 - 12.3 fL [facility] RBC 4.33 3.90 - 5.20 M/cumm [facility] MCV 72.1(L) 81.3 - 96.4 fL [facility] MCH 20.3(L) 27.1 - 33.3 pg [facility] MCHC 28.2(L) 32.3 - 35.7 g/dL [facility] RDW CV 19.4(H) 11.1 - 14.9 % [facility] RDW SD 49.3(H) 35.7 - 48.1 fL [facility] NRBC abs 0.02(H) 0.00 - 0.01 K/cumm [facility] Blood 10/28/2024 2:02 PM HOGSHEAD PACKER 10/28/2024 2:02 PM HOGSHEAD PACKER Kirsten Negrita Roa LAB BLOOD ORDE [facility] Final Result [facility] Department [place] [address] * Lactate dehydrogenase (LD) (10/28/2024 2:02 PM HOGSHEAD PACKER) [facility] Lactate dehydrogenase (LDH) 160 100 - 250 Units/L Comment:Testing performed by : [facility], [address] [place] [address] Blood 10/28/2024 2:02 PM HOGSHEAD PACKER 10/28/2024 2:02 PM HOGSHEAD PACKER [facility] Negrita Callawaybethany LAB BLOOD ORDE [facility] Final Result [facility] [place] [address] * Ferritin (10/28/2024 2:02 PM HOGSHEAD PACKER) [facility] Ferritin 13 13 - 150 ng/mL Blood 10/28/2024 2:02 PM HOGSHEAD PACKER 10/28/2024 3:30 PM HOGSHEAD PACKER Flynn Ma MD LAB BLOOD ORDERABLES Final R esult [facility] [place] [address] * (ABNORMAL) Beta 2 microglobulin, serum (10/28/2024 2:02 PM HOGSHEAD PACKER) Beta 2 Microglobulin, Serum 3.20(H) 1.00 - 2.50 mg/L Comment: Interpretive Data The Jose Beta-2 microglobulin assay procedure was used. Results from different manufacturers or methods may not be comparable. Serial testing should be performed using the same method. Blood 10/28/2024 2:02 PM HOGSHEAD PACKER 10/28/2024 3:24 PM HOGSHEAD PACKER Kisrten Roa NP LAB BLOOD ORDE RABLES Final Result Performing Organization Address [facility]/ZIP Co de Phone Number [facility] [place] [address] * (ABNORMAL) Comprehensive metabolic panel (10/28/2024 2:02 PM HOGSHEAD PACKER) Pathologist [facility] Sodium 144 135 - 145 mmol/L Comment:Testing performed by : [facility], [address] [place] [address] Potassium, pl 3.9 3.3 - 4.9 mmol/L [facility] Chloride 108 97 - 110 mmol/L [facility] CO2 26 22 - 32 mmol/L [facility] Anion gap 10 2 - 15 mmol/L [facility] BUN 29(H) 6 - 25 mg/dL [facility] Creatinine 0.99 0.60 - 1.10 mg/dL [facility] Glucose 106 70 - 199 mg/dL [facility] Comment: Interpretive Data Fasting glucose >/= [...] Calcium 9.1 8.5 - 10.3 mg/dL [facility] Bilirubin, total 0.2 0.1 - 1.2 mg/dL [facility] Comment:Repeated and verifie d. Protein, pl 6.7 6.5 - 8.5 g/dL [facility] Albumin 4.0 3.5 - 5.0 g/dL [facility] Alk phos 102 40 - 130 Units/L [facility] ALT 8 7 - 45 Units/L [facility] AST 12 10 - 45 Units/L [facility] Blood 10/28/2024 2:02 PM HOGSHEAD PACKER 10/28/2024 2:02 PM HOGSHEAD PACKER Kirsten Roa SANDWICH ARTIST LAB BLOOD ORDDorie TUTTLE Final Result [facility] Department [place] [address] * ANGIOGRAM (10/16/2024 3:19 PM HOGSHEAD PACKER) Anatomical Region Laterality Modality X-Ray Angiograph y Narrative 10/16/2024 7:48 PM HOGSHEAD PACKER Please see OpNote for result. Madelyn Vicente MD PhD SURGICAL CASE ORDERS F inal Result * ANGIOPLASTY BALLOON PERCUTANEOUS (10/16/2024 3:19 PM HOGSHEAD PACKER) Anatomical Region Laterality Modality X-Ray Angiograph y Narrative 10/16/2024 7:48 PM HOGSHEAD PACKER Please see OpNote for result. Madelyn Vicente MD PhD CV CARDIAC CATH PROCED URES Final Result * FL Fluoroscopy < 1 Hour (10/16/2024 2:45 PM HOGSHEAD PACKER) Narrative RAD_PACS_[facility] - 10/16/2024 2:48 PM HOGSHEAD PACKER The images from this study are not interpreted by Radiology. Please refer to the physician's procedure / OR operative note. Madelyn Vicente MD PhD IMG FLUOROSCOPY PROCED URES Final Result Performing Organization Address [facility] Co de Phone Number [facility]_PACS_[facility] * POCT Activated clotting time, low range (10/16/2024 2:40 PM HOGSHEAD PACKER) ACT 128 123 - 168 sec POC Performer [id number] [facility] POC Device Number [id number] [facility] Blood 10/16/2024 2:40 PM HOGSHEAD PACKER 10/16/2024 2:40 PM HOGSHEAD PACKER Madelyn Vicente MD PhD LAB POCT ORDERABLES - DEVICE Final Result Performing Organization Address [facility] de Phone Number [facility] Department [place] [address] * (ABNORMAL) POCT Activated clotting time, low range (10/16/2024 2:19 PM HOGSHEAD PACKER) ACT 227(H) 123 - 168 sec POC Performer 0398 [facility] POC Device Number [id number] [facility] Blood 10/16/2024 2:19 PM HOGSHEAD PACKER 10/16/2024 2:19 PM HOGSHEAD PACKER Madelyn Vicente MD PhD LAB POCT ORDERABLES - DEVICE Final Result Performing Organization Address [facility] Co de Phone Number [facility] Department [place] [address] * Type and screen (10/16/2024 12:21 PM HOGSHEAD PACKER) Ella, indirect Negative ABO Rh A Positive [facility] Blood 10/16/2024 12:2 1 PM HOGSHEAD PACKER 10/16/2024 1:03 PM HOGSHEAD PACKER Narrative RITCHIE PLASCENCIA - 10/16/2024 1:50 PM HOGSHEAD PACKER Has the patient had Daratumumab or Isatuximab in the past 6 months?->Unknown Valentino Menezes MD LAB BLOOD BANK TEST ORDERABLES F inal Result Performing Organization Address [facility] Co de Phone Number [facility] Department [place] [address] * eGFR (10/11/2024 4:29 PM HOGSHEAD PACKER) Pathologist [facility] eGFR 65 >=60 mL/min/1. 73 m2 Comment: [...] last reviewed 2021. Blood 10/11/2024 4:29 PM HOGSHEAD PACKER 10/11/2024 5:01 PM HOGSHEAD PACKER Mustapha George MD LAB BLOOD ORDERABLES Final R esult Performing Organization Address [facility]/ZIP Co de Phone Number [facility] Department [place] [address] * (ABNORMAL) CBC without differential (10/11/2024 4:29 PM HOGSHEAD PACKER) WBC 14.2(H) 3.8 - 9.9 K/cumm Hgb 9.5(L) 11.9 - 15.5 g/dL [facility] Hct 33.7(L) 35.6 - 45.5 % [facility] Plt 580(H) 150 - 400 K/cumm [facility] MPV 9.8 9.1 - 12.3 fL [facility] RBC 4.64 3.90 - 5.20 M/cumm [facility] MCV 72.6(L) 81.3 - 96.4 fL [facility] MCH 20.5(L) 27.1 - 33.3 pg [facility] MCHC 28.2(L) 32.3 - 35.7 g/dL [facility] RDW CV 18.7(H) 11.1 - 14.9 % [facility] RDW SD 48.2(H) 35.7 - 48.1 fL [facility] NRBC abs 0.00 0.00 - 0.01 K/cumm [facility] Blood 10/11/2024 4:29 PM HOGSHEAD PACKER 10/11/2024 5:01 PM HOGSHEAD PACKER us Mustapha George MD LAB BLOOD ORDERABLES Final R esult [facility] Department [place] [address] * Type and screen (10/11/2024 4:29 PM HOGSHEAD PACKER) ABO Rh A Positive Ella, indirect Negative [facility] Blood 10/11/2024 4:29 PM HOGSHEAD PACKER 10/11/2024 5:30 PM HOGSHEAD PACKER Narrative [facility] - 10/11/2024 6:38 PM HOGSHEAD PACKER Has the patient had Daratumumab or Isatuximab in the past 6 months?->Unknown us Mustapha George MD LAB BLOOD BANK TEST ORDERABL ES Final Result Performing Organization Address [facility]/ZIP Co de Phone Number [facility] [place] [address] * (ABNORMAL) Basic metabolic panel (10/11/2024 4:29 PM HOGSHEAD PACKER) Sodium 146(H) 135 - 145 mmol/L Potassium, pl 3.9 3.3 - 4.9 mmol/L [facility] Chloride 108 97 - 110 mmol/L [facility] CO2 24 22 - 32 mmol/L [facility] Anion gap 14 2 - 15 mmol/L [facility] BUN 12 6 - 25 mg/dL [facility] Creatinine 1.04 0.60 - 1.10 mg/dL [facility] Glucose 82 70 - 199 mg/dL [facility] Comment: Interpretive Data Fasting glucose >/= [...] 2022. Calcium 9.3 8.5 - 10.3 mg/dL [facility] Blood 10/11/2024 4:29 PM HOGSHEAD PACKER 10/11/2024 5:01 PM HOGSHEAD PACKER us Mustapha George MD LAB BLOOD ORDERABLES Final R esult Performing Organization Address [facility]/ZIP Co de Phone Number RITCHIE [facility] Department [place] [address] * CTA Abdominal Aorta And Bilateral Iliofemoral Runoff (10/07/2024 1:09 PM HOGSHEAD PACKER) Anatomical Region Laterality Modality Body Bilateral Computed Tomogra phy 10/07/2024 2:47 PM HOGSHEAD PACKER Impressions 10/07/2024 2:53 PM HOGSHEAD PACKER 1. Right lower extremity: Revision of the [...] Mor Pugh M.D. Narrative 10/07/2024 2:53 PM HOGSHEAD PACKER EXAMINATION: CT ANGIOGRAPHY OF THE ABDOMEN, PELVIS, [...] Lower Extremity Right Limited (09/26/2024 11:38 AM HOGSHEAD PACKER) Anatomical Region Laterality Modality Vascular Right Ultrasound 09/26/2024 11:0 0 AM HOGSHEAD PACKER Narrative 09/28/2024 12:40 PM HOGSHEAD PACKER [facility] - Department of Vascular Surgery, Vascular Laboratory [address] [place] [address] Lower Extremity Arterial Duplex - Bypass Graft Report Patient Name: JEFFERY HAMILTON : 1970 Study Date: 09/26/2024 11:00:54 AM Gender: F Tech: ISRA[place] Location: [facility] Provider: MADELYN VICENTE Quality: Adequate Order [...] cm/s Right Value Units - FINDINGS: Performing Low Pressure Boiler Tender: Magdalene Mack RVT. Right Leg: The inflow [...] Willy Medellin MD FACS 09/28/2024 12:39:24 PM HOGSHEAD PACKER Procedure Note Willy Medellin MD - 09/28/2024 [facility] - Department of Vascular Surgery,Vascular Laboratory [address] [place] [address] Lower Extremity Arterial Duplex - Bypass Graft Report Patient Name: JEFFERY HAMILTON : 1970 Study Date: 09/26/2024 11:00:54 AM Gender: F Tech: ISRAEL Location: [facility] Provider: MADELYN VICENTE Quality: Adequate Order [...] cm/s Right Value Units - FINDINGS: Performing Low Pressure Boiler Tender: Magdalene Mack RVT. Right Leg: The inflow [...] above. Electronically Signed By: Willy Medellin MD [facility] 09/28/2024 12:39:24 PM HOGSHEAD PACKER Result [facility] Cindy Vicente MD PhD IMG US PROCEDURES Kelsea l Result * US Arterial Doppler Lower Extremity Bilateral (09/26/2024 11:38 AM HOGSHEAD PACKER) Anatomical Region Laterality Modality Vascular Bilateral Ultrasound 09/26/2024 11:0 3 AM HOGSHEAD PACKER Narrative 09/28/2024 12:36 PM HOGSHEAD PACKER [facility] - Department of Vascular Surgery, Vascular Laboratory [address] [place] [address] Lower Extremity Arterial Doppler Report Patient Name: JEFFERY HAMILTON : 1970 Study Date: 09/26/2024 11:03:00 AM Gender: F Tech: Magdalene Mack Toma Location: [facility] Provider: MADELYN VICENTE Quality: Adequate Order Provider: MADELYN VICENTE PROCEDURES: Arterial Report: Bilateral lower extremity arterial Doppler exam at rest. INDICATIONS: Z48.812 Encounter for surgical aftercare following surgery on the circulatory system. MEASUREMENTS: Right Value Units Left Value Units Rt Brachial Pressure 133 mmHg Lt Brachial Pressure 129 mmHg Rt SYSTEM SALES CONSULTANT Pressure 66 mmHg Lt SYSTEM SALES CONSULTANT Pressure 99 mmHg Rt DPA Pressure 64 mmHg Lt DPA Pressure 101 mmHg Rt 1st Digit Pressure 66 mmHg Lt 1st Digit Pressure 45 mmHg Rt PT KAROLYN Resting 0.5 Lt PT KAROLYN Resting 0.74 Rt AT KAROLYN Resting 0.48 Lt AT KAROLYN Resting 0.76 Rt Digit/Arm Index 0.5 Lt Digit/Arm Index 0.34 Right Value Units Left Value Units - FINDINGS: Performing Low Pressure Boiler Tender: Magdalene Mack RVT. Right All Levels: The [...] Willy Medellin MD FACS 09/28/2024 12:35:48 PM HOGSHEAD PACKER Procedure Note Willy Medellin MD - 09/28/2024 [facility] - Department of Vascular Surgery,Vascular Laboratory [address] [place] [address] Lower Extremity Arterial Doppler Report Patient Name: JEFFERY HAMILTON : 1970 Study Date: 09/26/2024 11:03:00 AM Gender: F Tech: Magdalene Mack [facility] Location: [facility] Provider: MADELYN VICENTE Quality: Adequate Order Provider: MADELYN VICENTE PROCEDURES: Arterial Report: Bilateral lower extremity arterial Doppler exam at rest. INDICATIONS: Z48.812 Encounter for surgical aftercare following surgery on thecirculatory system. MEASUREMENTS: Right Value Units Left ValueUnits Rt Brachial Pressure 133 mmHg Lt Brachial Pressure 129mmHg Rt SYSTEM SALES CONSULTANT Pressure 66 mmHg Lt SYSTEM SALES CONSULTANT Pressure 99mmHg Rt DPA Pressure 64 mmHg Lt DPA Pressure 101mmHg Rt 1st Digit Pressure 66 mmHg Lt 1st Digit Pressure 45mmHg Rt PT KAROLYN Resting 0.5 Lt PT KAROLYN Resting 0.74 Rt AT KAROLYN Resting 0.48 Lt AT KAROLYN Resting 0.76 Rt Digit/Arm Index 0.5 Lt Digit/Arm Index 0.34 Right Value Units Left ValueUnits - FINDINGS: Performing Low Pressure Boiler Tender: Magdalene Mack RVT. Right All Levels: The [...] above. Electronically Signed By: Willy Medellin MD [facility] 09/28/2024 12:35:48 PM HOGSHEAD PACKER Madelyn Vicente MD PhD IMG US PROCEDURES Kelsea l Result from Last 3 Months Additional Health Concerns Infection Onset Date Last Indicated MDR gram neg/ESBL 07/23/2024 08/01/2024 Insurance MEDICARE SOLUTIONS [facility] MEDICARE MEDICARE SOLUTIONS Advance Directives For more information, please contact: [phone] * Full Code (Latest Code Status on [...] 10:15 AM 07/03/2024 11:02 AM Care Teams Chief Of Field Operations Relationship Specialty Start Date End Date Mor Blancas MD [address] [place] [address] PCP - General Emergency Medicine 03/25/24 Flynn Ma MD [address] [facility] [address] [place] [address] Medical Oncologist/Cyber Special Agent Medical Oncology 09/28/18 Colleen Diaz MD [address] [place] [address] Referring Physician Nephrology 03/24/22 Derek Wilson MD [address] [place] [address] Referring Physician Obstetrics and Gynecology 06/26/23 Mar Jay MD [address] [place] [address] Surgeon Vascular Surgery 08/24/23 Mitch Austin DO [address] [facility] [address] [place] [address] Surgeon Surgery 09/26/23 Madelyn Vicente MD PhD [address] [facility] [address] [place] [address] Registered Nurse Vascular Surgery 07/05/24 Eric Washington MD [address] [place] [address] Consulting Physician Plastic Surgery 07/29/24
--- OUTSIDE RECORDS SUMMARY | 2024-12-13 07:34 | XMS_ITS ---
Author Organization [facility] Address [address] [place] [address] Care Team Providers Care Energy Assistant Name Role Phone Flynn Ma MD Unavailable [phone] Colleen Diaz MD Unavailable Derek Wilson MD Unavailable [phone] Mar Jay MD Unavailable [phone] Mitch Austin DO Unavailable [phone] Mor Blancas MD Primary Care Provide r Madelyn Vicente MD PhD Unavailable [phone] Eric Washington MD Unavailable Active Problems Problem Noted Date Diagnosed Date [...] 07/02/2024 Assessment & Plan (10/16/2024 2:41 PM HALL SUPERVISOR): Has chronic abdominal pain due to likely [...] 07/01/2024 Assessment & Plan (10/16/2024 2:42 PM HALL SUPERVISOR): Hx RLE arterial occlusion/DVT 07/2023; h/o splenic [...] 07/01/2024 Assessment & Plan (10/16/2024 2:40 PM HALL SUPERVISOR): Patient with previous right lower extremity bypass [...] 07/22: emergent OR s/p thrombectomy of R JOB MOLDER, bypass graft, below knee popliteal. R groin [...] lateral thigh PRS: Prolene sutures. 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 Wound vac to thigh replaced Assessment & [...] 06/26/2023. Held Plavix/Eliquis due to bleeding. 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 Follows with [facility]. Current Treatment and Therapy Plans No current plan information found. Other Current Plans Ferumoxytol (FERAHEME) Infusion* Plan Start Date:11/04/2024 Plan Provider:Flynn aM MD Linked Problems Iron deficiency anemia, unsp [...] 06/0 12/2023 Overview (08/07/2023): Recently hospitalized at [facility] for pyelonephritis. Discharged on Keflex (08/01-08/10). - Continue cephalexin 500 mg BID. Assessment & Plan (08/07/2023 10:53 PM CDT): Recently hospitalized at [facility] for pyelonephritis. Discharged on Keflex (08/01-08/10). - Continue cephalexin 500 mg BID. Flu vaccine need 09/07/2022 08/07/2023 Dehydration 06/27/2022 08/07/2023 Immunocompromised 05/18/2022 08/07/2023
--- OUTSIDE RECORDS SUMMARY | 2024-12-13 07:34 | XMS_ITS | Encounter Summary ---
Author Organization [facility] Address [address] [place] [address] Phone Care Team Providers Care Obiee Report Developer Name Role Phone Flynn Ma MD Unavailable [phone] Colleen iDaz MD Unavailable Derek Wilson MD Unavailable [phone] Mar Jay MD Unavailable [phone] Mitch Austin DO Unavailable [phone] Mor Blancas MD Primary Care Provide r Madelyn Vicente MD PhD Unavailable [phone] Eric Washington MD Unavailable [phone] Encounter Details Date Type Department Care Team (Late st Contact Info) Description 12/12/2024 Telephone [facility] Vascular Surgery [address] [facility] Medical Office [address] [facility] [place] [address] Franco Robertson, A Social History Tobacco Use Types Packs/Day Years Used Date Smoking Tobacco: Former Cigarettes 1 37.5 1 987 - 04/08/2024 Passive Smoke Exposure: Past Smokeless Tobacco: Never Comments:cutting down 4-6 a day Alcohol Use Standard Drinks/Week Comments No 0 (1 standard drink = 0.6 oz pur e alcohol) [facility] Utilities Answer Date Recorded In the past 12 months has th e electric, gas, oil, or water [employer] threatened to shut off services in your [...] often do you attend chur ch or scientologist services? Never 07/24/2024 Do you belong to any clubs o r organizations such as alevism groups, unions, fraternal or athletic groups, or [...] any time in the past 12 m [facility], were you homeless or living in a fdc (including now)? No 07/24/2024 Personal Safety Answer Date Recorded Have you ever been in or are you currently in a harmful physical or emotional relationship or is someone making you feel afraid or unsafe? Denies 10/16/2024 Comments No Sex and Gender Information Value Date Recorded Sex Assigned at Not on file 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 MANAGER INTERNET [employer]AIL[employer] SALES Gender Identity Female 03/14/2022 6:19 PM CDT Sexual Orientation Not on file documented as of this encounter Miscellaneous Notes * Telephone Encounter - Greg Kat CMA - 12/12/2024 1:32 PM MANAGER INTERNET [employer]AIL[employer] SALES Spoke to patient she is going to go to her local ER to see what is going on [employer]ER [employer] * Telephone Encounter - Franco Robertson RMA - 12/12/2024 12:34 PM CST Pt called and LVM c/o RLE pain, feels like concrete and feels alvaro she is dragging her foot. She is worried about it. She would like a phone call back at [phone]. S/P RLE angio 10/16/24 [employer] documented in this encounter Plan of Treatment Not on file documented as of this encounter Visit Diagnoses Not on filedocumented in this encounter Additional Health Concerns Infection Onset Date Last Indicated Resolved Time MDR gram neg/ESBL 07/23/2024 08/01/2024 documented as of this encounter Care Teams Obiee Report Developer Relationship Specialty Start Date End Date Mor Blancas MD [address] [place] [address] PCP - General Emergency Medicine 03/25/24 Flynn Ma MD [address] [facility] [address] [place] [address] Medical Oncologist/Stripper Cutter Machine Medical Oncology 09/28/18 Colleen Diaz MD [address] [place] [address] Referring Physician Nephrology 03/24/22 Derek Wilson MD [address] [place] [address] Referring Physician Obstetrics and Gynecology 06/26/23 Mar Jay MD [address] [place] [address] Surgeon Vascular Surgery 08/24/23 Mitch Austin DO [address] [place] [address] Surgeon Surgery 09/26/23 Madelyn Vicente MD PhD [address] [facility] [address] [place] [address] Registered Nurse Vascular Surgery 07/05/24 Eric Washington MD [address] [place] [address] Consulting Physician Plastic Surgery 07/29/24 documented as of this encounter
[2024-12-13 08:06] LABS: Alanine Aminotransferase 17 U/L (14-59); Albumin Level 3.4 g/dL (3.4-5.0); Alkaline Phosphatase 123 U/L (46-116); Anion Gap 7 mmol/L (4-12); Aspartate Amino Transferase < 10 U/L (15-37); Bilirubin,Total 0.2 mg/dL (0.00-1.00); Blood Urea Nitrogen 19 mg/dL (7-18); Carbon Dioxide 28 mmol/L (21-32); Chloride 109 mmol/L (98-108); Cholesterol 297 mg/dL (0-200); Estimated Glomerular Filt Rate 51; Glucose 98 mg/dL (70-99); HDL Direct 68 mg/dL (40-60); LDL Cholesterol Calculated 197 mg/dL (<130); Osmolality Calculated 300 mOsm/kg (285-295); Potassium 4.2 mmol/L (3.5-5.1); Sodium 144 mmol/L (136-145); Total Protein 6.8 g/dL (6.4-8.2); Triglycerides 161 mg/dL (0-150)
[2024-12-16 16:33] LABS: Vitamin D 25 Hydroxy 20 ng/mL (30-100)
== END 2024-12-13 07:29 | disposition home or self-care (01) ==
LOC: CHSLAB 07:30
PROVIDERS: PCP Emergency Medicine; Visit Provider Emergency Medicine
DX: E55.9 Vitamin D deficiency, unspecified (principal); E78.5 Hyperlipidemia, unspecified; I73.9 Peripheral vascular disease, unspecified; M79.89 Other specified soft tissue disorders; I74.3 Embolism and thrombosis of arteries of the lower extremities; I82.431 Acute embolism and thrombosis of right popliteal vein
CPT/HCPCS: 36415; 73701; 80053; 80061; 82306; 93971; Q9967

== ENCOUNTER 2025-03-04 22:09 | Emergency (ER) | payer MEDICARE, SELFPAY ==
[2025-03-04 22:09] VITALS: BP 151/81; PULSE 74; RESP 20; TEMP 36.7; O2SAT 97
--- OUTSIDE RECORDS SUMMARY | 2025-03-04 22:11 | XMS_ITS | Encounter Summary ---
Author Organization [facility] Address [address] [place] [address] Phone Care Team Providers Care Care Advocate Name Role Phone Flynn Ma MD Unavailable [phone] Ari Elmore DO Primary Care Provider Colleen Diaz MD Unavailable Derek Wilson MD Unavailable [phone] Mar Jay MD Unavailable [phone] Mitch Austin DO Unavailable [phone] Mor Blancas MD Primary Care Provide r Madelyn Vicente MD PhD Unavailable [phone] Eric Washington MD Unavailable [phone] Encounter Details Date Type Department Care Team [...] on file 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 SALES OPERATIONS ASSOCIATE Gender Identity Female 03/14/2022 6:19 PM CDT [...] documented as of this encounter Care Teams Care Advocate Relationship Specialty Start Date End Date Ari Elmore DO [address] [place] [address] PCP - General Family Medicine 12/16/20 03/24/24 Mor Blancas MD [address] [place] [address] PCP - General Emergency Medicine 03/25/24 Flynn Ma MD [address] [facility] [address] [place] [address] Medical Oncologist/Cold Roll Catcher Medical Oncology 09/28/18 Colleen Diaz MD [address] [place] [address] Referring Physician Nephrology 03/24/22 Derek Wilson MD [address] [place] [address] Referring Physician Obstetrics and Gynecology 06/26/23 Mar Jay MD [address] [place] [address] Surgeon Vascular Surgery 08/24/23 Mitch Austin DO [address] [address] Surgeon Surgery 09/26/23 Madelyn Vicente MD PhD [address] [facility] [address] [place] [address] Registered Nurse Vascular Surgery 07/05/24 Eric Washington MD [address] [place] [address] Consulting Physician Plastic Surgery 07/29/24 documented as of this encounter
--- OUTSIDE RECORDS SUMMARY | 2025-03-04 22:11 | XMS_ITS | Encounter Summary ---
Author Organization [facility] Address [address] [place] [address] Phone Care Team Providers Care Film Drying Machine Operator Name Role Phone Flynn Ma MD Unavailable [phone] Ari Elmore DO Primary Care Provider Colleen Diaz MD Unavailable Derek Wilson MD Unavailable [phone] Mar Jay MD Unavailable [phone] Mitch Austin DO Unavailable [phone] Mor Blancas MD Primary Care Provide r Madelyn Vicente MD PhD Unavailable [phone] Eric Washington MD Unavailable [phone] Encounter Details Date Type Department Care Team [...] on file 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 Gender Identity Female 03/14/2022 6:19 PM [...] documented as of this encounter Care Teams Film Drying Machine Operator Relationship Specialty Start Date End Date Ari Elmore DO [address] [place] [address] PCP - General Family Medicine 12/16/20 03/24/24 Mor Blancas MD [address] [place] [address] PCP - General Emergency Medicine 03/25/24 Flynn Ma MD [address] [facility] [address] [place] [address] Medical Oncologist/Industrial Order Clerk Medical Oncology 09/28/18 Colleen Diaz MD [address] [place] [address] Referring Physician Nephrology 03/24/22 Derek Wilson MD [address] [place] [address] Referring Physician Obstetrics and Gynecology 06/26/23 Mar Jay MD [address] [place] [address] Surgeon Vascular Surgery 08/24/23 Mitch Austin DO [address] [address] Surgeon Surgery 09/26/23 Madelyn Vicente MD PhD [address] [facility] [place] [place] [address] [place] [address] Registered Nurse Vascular Surgery 07/05/24 Eric Washington MD [address] [place] [address] Consulting Physician Plastic Surgery 07/29/24 documented as of this encounter
--- OUTSIDE RECORDS SUMMARY | 2025-03-04 22:12 | XMS_ITS ---
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 On 07/16 she underwent drainage of a thigh hematoma as well as right groin superficial debridement. OR cx grew MSSA and mixed micro. She was discharged on Augmentin on 07/19. She represented to ED with complaints of RLE numbness with absent signals in RLL. On 07/22, she underwent emergent OR s/p thrombectomy of R SPAR FINISHER, bypass graft, below knee popliteal. R groin flap by (PRS). R groin complicated by ESBL klebsiella managed with IV ertapenem. OR 08/01 for debridement and decompression of hematoma from right medial thigh wound. Vein bypass covered by sartorius muscle and wound vac applied (PRS). Recent RLE angiogram and angioplasty of distal anastomosis of bypass (10/2024). Presents with acute onset right foot heaviness, paraesthesias, and coolness beginning early morning - Heparin gtt, aspirin - Hold plavix and Eliquis. Resume Eliquis tonight - Continue home statin - 12/16: OR for femoral suction thrombectomy, open thrombectomy of RLE bypass, stenting of right common, profunda femoral artery and right bypass graft, stenting of right common, profunda femoral artery and right bypass graft - Return to OR 12/19/24 for diagnostic angiogram. No intervention. 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 On Eliquis 5mg BID at home. - hold eliquis, cont heparin gtt. - Pt states she was supposed to see Dr. Hollis as outpatient but hasn't made it yet. Consult hematology. -- Heme labs ordered Assessment & Plan (10/16/2024 2:42 PM E LEARNING SPECIALIST): Hx RLE arterial occlusion/DVT 07/2023; h/o splenic [...] 07/01/2024 Assessment & Plan (10/16/2024 2:40 PM E LEARNING SPECIALIST): Patient with previous right lower extremity bypass [...] 07/22: emergent OR s/p thrombectomy of R SPAR FINISHER, bypass graft, below knee popliteal. R groin [...] 06/26/2023. Held Plavix/Eliquis due to bleeding. - Blacking Wheel Tender consult on 08/08 - Hold home medication norethindrone 5 mg daily, restart when able. Hypercoagulable state 08/07/2023 Assessment & Plan (08/07/2023 9:31 PM CDT): Prior documentation of possible hypercoagulable disease. Patient was treated with aspirin, Plavix, and Eliquis. Hx of right fem DVT in January 2022. - Hematology consult on 08/08 - Heparin gtt Hypertension 08/07/2023 Assessment & Plan (12/19/2024 12:32 PM CDT): Home meds:Amlodipine, lisinopril, metoprolol -cont amlodipine. Lisinopril held for OR, resume as able. 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 Follows with [facility]. Current Treatment and Therapy Plans No current [...] of 12 cycles started Oncology Supportive Care Therapy Plan Plan Name Start Date Discontinue Date Treatment Medications Discontinue Reason Plan Provider Hydration Therapy Plan 06/27/2022 06/14/2023 No medications scheduled. Therapy Complete Flynn Ma MD Lifetime Dose Tracking * Chemical Lifetime Dose Automatic Entry Manual Entr y Fluoro Time 50.087 minutes 50.087 minutes 0 minutes Air kerma at the reference point (Ka,r) 820.92 mGy 8 20.92 mGy 0 mGy DLP 18,277 mGycm 18,277 mGycm 0 mGycm Resolved Problems Problem Noted Date Diagnosed Date Resolved Date Urinary tract infection 08/07/2023 06/0 12/2023 Overview (08/07/2023): Recently hospitalized at [place] for pyelonephritis. Discharged on Keflex (08/01-08/10). - Continue cephalexin 500 mg BID. Assessment & Plan (08/07/2023 10:53 PM CDT): Recently hospitalized at [place] for pyelonephritis. Discharged on Keflex (08/01-08/10). - Continue cephalexin 500 mg BID. Flu vaccine need 09/07/2022 08/07/2023 Dehydration 06/27/2022 08/07/2023 Immunocompromised 05/18/2022 08/07/2023
--- OUTSIDE RECORDS SUMMARY | 2025-03-04 22:12 | XMS_ITS | Clinical Summary ---
Author Organization [facility] Address [address] [place] [address] Care Team Providers Care Gear Machinist Name Role Phone Flynn Ma MD Unavailable Colleen Diaz MD Unavailable Derek Wilson MD Unavailable [phone] Mar Jay MD Unavailable Mitch Austin DO Unavailable [phone] Mor Blancas MD Primary Care Provide r Madelyn Vicente MD PhD Unavailable [phone] Eric Washington MD Unavailable [phone] Allergies Active Allergy Reactions Criticality Noted Date Comments Gentian Patricia Blisters High 09/22/2021 Medications allopurinoL (ZYLOPRIM) 100 mg tabletIndications:p revention of acute gout attack Take 1 tablet (100 mg total) by mouth 2 (two) times a day 1 Active ondansetron ODT (ZOFRAN-ODT) 4 mg disintegrating tablet Take 1 tablet (4 mg total) by mouth every 8 (eight) hours as needed for nausea or vomiting 4 Active aspirin 81 mg chewable tablet Take 1 tablet (81 mg total) by mouth daily 4 07/06/[address] (PROTONIX) 40 mg EC tabletIndications:T reatment of Non-Bleeding Gastric Disorder Take 1 tablet (40 mg total) by mouth 2 (two) times a day 60 tablet 3 4 07/05/20 25 Active metoprolol XL (TOPROL-XL) 50 mg extended release tabletIndications:h ypertension Take 1 tablet (50 mg total) by mouth every morning 4 Active ALPRAZolam (XANAX) 0.5 mg tabletIndications:a nxiety Take 1 tablet (0.5 mg total) by mouth 3 (three) times a day as needed for anxiety 4 Active amLODIPine (NORVASC) 5 mg tabletIndications:h ypertension Take 1 tablet (5 mg total) by mouth every morning 4 Active lisinopriL (PRINIVIL,ZESTRIL) 40 mg tabletIndications:h ypertension Take 1 tablet (40 mg total) by mouth 2 (two) times a day 4 Active apixaban (ELIQUIS) 5 mg tablet Take 1 tablet (5 mg total) by mouth 2 (two) times a day Active acetaminophen 500 mg capsule Take 2 capsules (1,000 mg total) by mouth every 6 (six) hours 5 Active atorvastatin (LIPITOR) 20 mg tabletIndications:h yperlipidemia Take 1 tablet (20 mg total) by mouth 2 (two) times a day 5 Active clopidogreL (PLAVIX) 75 mg tablet Take 1 tablet (75 mg total) by mouth daily 5 Active Active Problems Problem Noted Date Diagnosed Date [...] underwent emergent OR s/p thrombectomy of R DROP WIRER, bypass graft, below knee popliteal. R groin [...] 07/02/2024 Assessment & Plan (10/16/2024 2:41 PM COMMUNICATIONS DEPARTMENT CHAIRPERSON): Has chronic abdominal pain due to likely [...] ordered Assessment & Plan (10/16/2024 2:42 PM COMMUNICATIONS DEPARTMENT CHAIRPERSON): Hx RLE arterial occlusion/DVT 07/2023; h/o splenic [...] 07/01/2024 Assessment & Plan (10/16/2024 2:40 PM COMMUNICATIONS DEPARTMENT CHAIRPERSON): Patient with previous right lower extremity bypass [...] 07/22: emergent OR s/p thrombectomy of R DROP WIRER, bypass graft, below knee popliteal. R groin [...] 06/26/2023. Held Plavix/Eliquis due to bleeding. 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 Follows with [facility]. Resolved Problems Problem Noted Date Diagnosed Date Resolved Date Urinary tract infection 08/07/2023 06/0 12/2023 Overview (08/07/2023): Recently hospitalized at [facility] for pyelonephritis. Discharged on Keflex (08/01-08/10). - Continue cephalexin 500 mg BID. Assessment & Plan (08/07/2023 10:53 PM CDT): Recently hospitalized at [facility] for pyelonephritis. Discharged on Keflex (08/01-08/10). - Continue cephalexin 500 mg BID. Flu vaccine need 09/07/2022 08/07/2023 Dehydration 06/27/2022 08/07/2023 Immunocompromised 05/18/2022 08/07/2023 Encounters Date Type Department Care Team Description 03/04/2025 Orders Only [facility] Hematology [address] [facility] Floor 6 [place] [phone] Stephani Robertson Acute lower limb ischemia (Primary Dx) 01/30/2025 Telephone [facility] Pre Anesthesia Testing [address] [place] [address] Karen Delarosa 01/20/2025 Orders Only [facility] Surgery [address] [facility] Floor 1 [place] [address] Madelyn Vicente MD PhD 01/17/2025 Telephone [facility] Surgery [address] [facility] Floor 1 [place] [address] Greg Kat CMA 01/17/2025 Orders Only [facility] Surgery [address] [facility] Floor 1 [place] [address] Madelyn Vicente MD PhD Encounter for surgical aftercare following surgery on the circulatory system (Primary Dx); Presence of other vascular implants and grafts 01/16/2025 Telephone [facility] Surgery [address] [facility] Floor 1 [place] [address] Greg Kat CMA 01/09/2025 Orders Only [facility] Oncology [facility] [facility] Floor 6 [place] [address] Mireya Briceno RN Iron deficiency anemia, unspecified iron deficiency anemia type (Primary Dx) 01/08/2025 11:20 AM CDT Lab [facility] [address] [place] [phone] Anemia, unspecified type 01/08/2025 9:15 AM CDT Office Visit [facility] Surgery [facility] [facility] 8th [place] [address] [place] [address] Madelyn Vicente MD PhD Atherosclerosis of [place] arteries of extremities with intermittent claudication, bilateral legs (Primary Dx); Critical limb ischemia of right lower extremity (HCC) 01/02/2025 3:15 PM CDT Ancillary Procedure [facility] Vascular Lab at the [facility] [address] [place] [address] 8th [place] [address] [place] [address] Encounter for surgical aftercare following surgery on the circulatory system; Presence of other vascular implants and grafts 12/30/2024 Orders Only [facility] Surgery [address] [facility] Floor 1 [place] [address] Madelyn Vicente MD PhD Encounter for surgical aftercare following surgery on the circulatory system (Primary Dx); Presence of other vascular implants and grafts 12/27/2024 Documentation [facility] Oncology [address] [facility] Floor 6 [place] [address] January, RMA Appointment 12/19/2024 7:39 AM CDT Anesthesia Event [facility] Operating Room 1 [place] [address] Justin Jose MD PhD Carver, Shea Elizabeth, MD 12/19/2024 7:30 AM CDT - 12/19/2024 10:05 AM CDT Surgery [facility] Operating Room 1 [place] [address] Claude Garza MD Angiogram 12/19/2024 Orders Only [facility] Hematology [address] [facility] [address] [place] [address] Manasa Quiroz NP Hospital discharge follow-up (Primary Dx) 12/17/2024 10:05 AM CDT Ancillary Procedure [facility] Vascular Lab IP [address] [facility] [address] [place] [address] 12/16/2024 1:30 PM CDT - 12/16/2024 5:30 PM CDT Surgery [facility] Operating Room 1 [place] [address] Claude Garza MD FEMORAL EMBOLECTOMY/THROMBECTO MY- suction thrombectomy with Penumbra and RLE angiogram 12/16/2024 1:26 PM CDT Anesthesia Event [facility] Operating Room 1 [place] [address] Naman Magaña MD Dippolito, Jenny Irene, NP 12/13/2024 6:34 PM COMMUNICATIONS DEPARTMENT CHAIRPERSON - 12/19/2024 3:34 PM CDT Hospital Encounter [address] [address] Fatimah Glover MD Rubin, Brian G., MD Critical limb ischemia of right lower extremity (HCC) (Primary Dx); Cold right foot; Arterial occlusion Discharge Disposition: Discharge to home or self care 12/13/2024 10:30 AM COMMUNICATIONS DEPARTMENT CHAIRPERSON - 12/13/2024 11:59 PM COMMUNICATIONS DEPARTMENT CHAIRPERSON Hospital Encounter [facility]) [address] [place] [address] Discharge Disposition: Discharge to home or self care 12/13/2024 10:29 AM COMMUNICATIONS DEPARTMENT CHAIRPERSON - 12/13/2024 11:59 PM COMMUNICATIONS DEPARTMENT CHAIRPERSON Hospital Encounter [facility] [place] [facility] ([facility]) [address] [place] [address] Discharge Disposition: Discharge to home or self care 12/13/2024 Telephone [facility] Surgery [address] [facility] Floor 1 [place] [address] Greg Kat [facility] 12/13/2024 Documentation [facility] Vascular Surgery [address] [place] [address] Office [address] [place] [address] Madelyn Vicente MD PhD 12/13/2024 Telephone [facility] Surgery [address] [facility] Floor 1 [place] [address] Greg Kat [facility] 12/12/2024 Telephone [facility] Vascular Surgery [address] [place] [address] [address] [place] [address] Franco Robertson, [facility] from Last 3 Months Immunizations Immunization Administration [...] LINE PLACEMENT > 5 YEARS 07/26/2024 N/A FEMORAL EMBOLECTOMY/THROMBECTOMY 12/16/2024 Pelvis/R ight Procedure: FEMORAL EMBOLECTOMY/THROMBE CTOMY- suction thrombectomy with Penumbra and RLE angiogram; Surgeon: Claude Garza MD; Location: [facility] OR POD 3; Service: Vascular; Laterality: Right; RLE angiogram, bypass graft thrombectomy Medical devices from this surgery are in the Medical Devices section. VASCULAR SURGERY PROCEDURE 12/16/2024 Lower Extremit y/Right Procedure: Thrombectomy of right lower extremity bypass graft and femoral artery; Surgeon: Claude Garza MD; Location: [facility] OR POD 3; Service: Vascular; Laterality: Right; Medical devices from this surgery are in the Medical Devices section. Medical History Medical History Date Comments HTN [...] drink = 0.6 oz pur e alcohol) [facility] Utilities Answer Date Recorded In the past 12 months has [employer], gas, oil, or water [employer] threatened to shut off services in your home? No 12/16/2024 Social Connection and Isolat ion Panel [NHANES] Answer Date Recorded In a typical week, how many times do you talk on the phone with family, friends, or neighbors? More than three times a week 12/16/2024 How often do you get togethe r with friends or relatives? More than three times a week 12/16/2024 How often do you attend chur ch or caodaism services? Never 12/16/2024 Do you belong to any clubs o r organizations such as cheondoism groups, unions, fraternal or athletic groups, or school groups? Yes 12/16/2024 How often do you attend meet ings of the clubs or organizations you belong to? Never 12/16/2024 Are you , , di vorced, , never , or living with a partner? 12/16/2024 AUDIT-C Answer Date Recorded Q1: How often do you have a drink containing alcohol? Never 12/19/2024 Q2: How many drinks containi ng alcohol do you have on a typical day when you are drinking? Patient does not drink Q3: How often do you have si x or more drinks on one occasion? Never 12/19/2024 Overall Financial Resource Strain (CARDIA) Answe r Date Recorded How hard is it for you to pa y for the very basics like food, housing, medical care, and heating? Not hard at all 12/16/2024 PHQ-2 Answer Date Recorded PHQ-2 Total Score (If total score is 3 or more points, staff should administer the PHQ-9) 0 12/16/2024 Hunger Vital Sign Answer Date Recorded Within the past 12 months, y ou worried that your food would run out before you got the money to buy more. Never true 12/17/19 25 Within the past 12 months, t he food you bought just didn't last and you didn't have money to get more. Never true 12/16/2024 PRAPARE - Transportation Answer Date Re corded In the past 12 months, has l ack of transportation kept you from medical appointments or from getting medications? No 12/07 In the past 12 months, has l ack of transportation kept you from meetings, work, or from getting things needed for daily living? No 12/16/2024 Housing Stability Vital Sign Answer Jaskaran e Recorded In the last 12 months, was t here a time when you were not able to pay the mortgage or rent on time? No 12/16/2024 In the past 12 months, how m any times have you moved where you were living? 0 12/16/2024 At any time in the past 12 m [facility], were you homeless or living in a usp (including now)? No 12/16/2024 Personal Safety Answer Date Recorded Have you ever been in or are you currently in a harmful physical or emotional relationship or is someone making you feel afraid or unsafe? Denies 12/19/2024 Comments No Sex and Gender Information Value Date Recorded Sex Assigned at Not on file 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 COMMUNICATIONS DEPARTMENT CHAIRPERSON Gender Identity Female 03/14/2022 6:19 PM CDT Sexual Orientation Not on file Obstetrics History Last Filed Vital Signs Vital Sign Reading Time Taken Comments Blood Pressure 121/73 01/08/2025 9:21 AM CDT Pulse 56 01/08/2025 9:21 AM CDT Temperature 36.4 C (97.6 F) 12/19/2024 12:10 PM CDT Respiratory Rate 18 12/19/2024 12:10 PM CDT Oxygen Saturation 99% 01/08/2025 9:21 AM CDT Inhaled Oxygen Concentration - - Weight 100.7 kg (222 lb) 01/08/2025 9:21 AM CDT Height 162.6 cm (5' 4) 01/08/2025 9:21 AM CDT Body Mass Index 38.11 01/08/2025 9:21 AM CDT Plan of Treatment Health Maintenance Due Date Last Done Comments Breast Cancer Screening-Mammogram 1972 Colon Cancer Screening-Colonoscopy 1972 Hepatitis C Screening 1972 DTaP/Tdap/Td Vaccine (1 - Tdap) 1983 Hepatitis B Screening 1990 Regular Well Visit/Exam 18-64 1990 Pneumococcal vaccine <65 (1 of 2 - PCV) 1991 Zoster Vaccine (1 of 2) 1991 Lung Cancer Screening 2022 Influenza Vaccine (Season Ended) 2025 09/07/20 Depression Screening 12/13/2025 12/13/2024, 07/22/2024, 07/15/2024 Medical Devices Implanted Type Area Runner Worker Device Identifier Shelf Expiration Date Model / Serial / Lot [employer]ker [employer] Riki Patch Vascuguard 0.88cm [id number] - [id number] Implanted:Qty : 1 on 07/01/2024 by Madelyn Vicente MD PhD at [facility] Other - see comments Right: Common Femoral Artery [employer] Riki [id number] 10/02/2025 [id number] / / [id number]- [id number] [employer] Riki Stent Peripheral [id number] m 6fr Self-Expandin g Blue Strl [id number] 30 - S00 - [id number] Implanted:Qty : 1 on 12/16/2024 by Claude Garza MD at [facility] Stent Right: Femoral [employer] Riki [id number] 05/20/2029 [id number] / / [id number] [employer] Riki Stent Peripheral [id number] m 6fr Self-Expandin g Blue Strl [id number] 30 - S00 - [id number] Implanted:Qty : 1 on 12/16/2024 by Claude Garza MD at [facility] Stent Right: Femoral [employer] Riki [id number] 05/20/2029 [id number] / [id number] [employer] System Closure Repair Femoral Artery Suture Mediated Perclose Prostyle 25282-22 - [id number] Implanted:Qty : 1 on 12/16/2024 by Claude Garza MD at [facility] Vascular Closure Device Left: Groin [employer] [id number] 08/08/2026 [id number] / / [id number] [employer] System Closure Repair Femoral Artery Suture Mediated Perclose Prostyle 03423-90 - [id number] Implanted:Qty : 1 on 12/16/2024 by Claude Garza MD at [facility] Vascular Closure Device Left: Groin [employer] [id number] 02/05/2025 [id number] / / [id number] [employer] Restrata Mini Matrix 100mg Micronized Powder Rmini-100 - [id number] Implanted:Qty : 1 on 07/16/2024 by Madelyn Vicente MD PhD at [facility] Right: Groin [employer] 07/11/2025 [id number] / [id number] [employer] Riki Patch Vascuguard 0.88cm [id number] - [id number] - [id number] Implanted:Qty : 1 on 07/22/2024 by Madelyn Vicente MD PhD at [facility] Right: Knee [employer] Riki [id number] 02/19/2026 [id number] / [id number] / [id number]- [id number] [employer] System Closure Repair Femoral Artery Suture Mediated Perclose Prostyle 10939-30 - [id number] Implanted:Qty : 1 on 12/19/2024 by Claude Garza MD at [facility] Right: Groin [employer] [id number] 03/08/2026 85368-78 / / [id number] Procedures Procedure Name Priority Date/Time Associated Diagnosis Comments DIFFERENTIAL AUTO Routine 01/08/2025 10: 11 AM CDT Anemia, unspecified type CBC WITH AUTO DIFFERENTIAL Routine 01/08/2025 10:11 AM CDT Anemia, unspecified type US ARTERIAL DUPLEX LOWER EXTREMITY RIGHT LIMITED Routine 01/02/2025 4:04 PM CDT Encounter for surgical aftercare following surgery on the circulatory system Presence of other vascular implants and grafts US ARTERIAL DOPPLER LOWER EXTREMITY BILATERAL Routine 01/02/2025 4:04 PM CDT Encounter for surgical aftercare following surgery on the circulatory system FL FLUOROSCOPY < 1 HOUR IP Routine 12/19/2024 9:52 AM CDT NC AN PROCEDURE PLACEHOLDER Routine 12/19/2024 9:45 AM CDT NC AN PROCEDURE PLACEHOLDER Routine 12/19/2024 9:44 AM CDT CV HYBRID ROOM (DEFAULT ORDERABLE) Routine 12/19/2024 9:34 AM CDT Arterial occlusion POC BLOOD GAS AND CHEMISTRIES, ARTERIAL Routine 12/19/2024 9:01 AM CDT POCT ACTIVATED CLOTTING TIME, LOW RANGE Routine 12/19/2024 8:51 AM CDT ANESTHESIA INTUBATION Routine 12/19/2024 8:41 AM CDT CALR WITH REFLEX TO MPL (MYELOPROLIFERATIVE NEOPLASM) Routine 12/18/2024 11:26 PM CDT EGFR Routine 12/18/2024 11:26 PM CDT APTT Timed 12/18/2024 11:26 PM CDT LUPUS ANTICOAGULANT PANEL PLUS REFLEXES Routine 12/18/2024 11:26 PM CDT CARDIOLIPIN ANTIBODY, IGM Routine 12/18/2024 11:26 PM CDT CARDIOLIPIN ANTIBODY, IGG Routine 12/18/2024 11:26 PM CDT BETA 2 GLYCOPROTEIN IGM AB Routine 12/18/2024 11:26 PM CDT BETA 2 GLYCOPROTEIN IGG AB Routine 12/18/2024 11:26 PM CDT JAK2/CALR/MPL TESTING CASCADE Routine 12/18/2024 11:26 PM CDT PNH PROFILE Routine 12/18/2024 11:26 PM CDT PHOSPHORUS Routine 12/18/2024 11:26 PM CDT MAGNESIUM Routine 12/18/2024 11:26 PM CDT BASIC METABOLIC PANEL Routine 12/18/2024 11:26 PM CDT CBC WITHOUT DIFFERENTIAL Routine 12/18/2024 11:26 PM CDT SURGICAL PATHOLOGY Routine 12/18/2024 11 :25 PM CDT APTT STAT 12/18/2024 4:22 PM CDT CTA ABDOMINAL AORTA AND BILATERAL ILIOFEMORAL RUNOFF ED Urgent/IP Urgent 12/18/2024 11:13 AM CDT APTT STAT 12/18/2024 6:02 AM CDT HEMOGLOBIN A1C Routine 12/17/2024 8:22 PM CDT EGFR Routine 12/17/2024 8:22 PM CDT APTT STAT 12/17/2024 8:22 PM CDT PHOSPHORUS Routine 12/17/2024 8:22 PM CDT MAGNESIUM Routine 12/17/2024 8:22 PM CDT BASIC METABOLIC PANEL Routine 12/17/2024 8:22 PM CDT CBC WITHOUT DIFFERENTIAL Routine 12/17/2024 8:22 PM CDT APTT STAT 12/17/2024 1:00 PM CDT US ARTERIAL DUPLEX LOWER EXTREMITY RIGHT LIMITED IP Routine 12/17/2024 12:20 PM CDT APTT STAT 12/17/2024 5:30 AM CDT EGFR Routine 12/16/2024 10:52 PM CDT PHOSPHORUS Routine 12/16/2024 10:52 PM CDT MAGNESIUM Routine 12/16/2024 10:52 PM CDT BASIC METABOLIC PANEL Routine 12/16/2024 10:52 PM CDT CBC WITHOUT DIFFERENTIAL Routine 12/16/2024 10:52 PM CDT CBC WITHOUT DIFFERENTIAL Timed 12/16/2024 10:52 PM CDT EGFR STAT 12/16/2024 7:42 PM CDT PHOSPHORUS STAT 12/16/2024 7:42 PM CDT MAGNESIUM STAT 12/16/2024 7:42 PM CDT CBC WITHOUT DIFFERENTIAL STAT 12/16/2024 7:42 PM CDT BASIC METABOLIC PANEL STAT 12/16/2024 7:42 PM CDT CV HYBRID ROOM (DEFAULT ORDERABLE) Routine 12/16/2024 7:29 PM CDT Arterial occlusion CV HYBRID ROOM (DEFAULT ORDERABLE) Routine 12/16/2024 7:29 PM CDT Arterial occlusion VASCULAR SURGERY PROCEDURE Routine 12/16/2024 7:29 PM CDT Arterial occlusion VASCULAR SURGERY PROCEDURE Routine 12/16/2024 7:29 PM CDT Arterial occlusion VASCULAR SURGERY PROCEDURE Routine 12/16/2024 7:29 PM CDT Arterial occlusion FL FLUOROSCOPY < 1 HOUR IP Routine 12/16/2024 7:13 PM CDT POCT ACTIVATED CLOTTING TIME, LOW RANGE Routine 12/16/2024 6:47 PM CDT POC BLOOD GAS AND CHEMISTRIES, ARTERIAL Routine 12/16/2024 6:23 PM CDT POCT ACTIVATED CLOTTING TIME, LOW RANGE Routine 12/16/2024 6:08 PM CDT POCT ACTIVATED CLOTTING TIME, LOW RANGE Routine 12/16/2024 5:39 PM CDT POCT ACTIVATED CLOTTING TIME, LOW RANGE Routine 12/16/2024 5:03 PM CDT POCT ACTIVATED CLOTTING TIME, LOW RANGE Routine 12/16/2024 4:28 PM CDT POCT ACTIVATED CLOTTING TIME, LOW RANGE Routine 12/16/2024 3:56 PM CDT POCT ACTIVATED CLOTTING TIME, LOW RANGE Routine 12/16/2024 3:26 PM CDT POCT ACTIVATED CLOTTING TIME, LOW RANGE Routine 12/16/2024 3:03 PM CDT POCT ACTIVATED CLOTTING TIME, LOW RANGE Routine 12/16/2024 1:59 PM CDT NC AN PROCEDURE PLACEHOLDER Routine 12/16/2024 1:53 PM CDT NC AN PROCEDURE PLACEHOLDER Routine 12/16/2024 1:51 PM CDT NC AN PROCEDURE PLACEHOLDER Routine 12/16/2024 1:50 PM CDT NC AN ELECTIVE ENDOTRACHEAL AIRWAY Routine 12/16/2024 1:50 PM CDT TYPE AND SCREEN Timed 12/16/2024 9:44 AM CDT EGFR Routine 12/15/2024 10:39 PM CDT APTT STAT 12/15/2024 10:39 PM CDT PHOSPHORUS Routine 12/15/2024 10:39 PM CDT MAGNESIUM Routine 12/15/2024 10:39 PM CDT BASIC METABOLIC PANEL Routine 12/15/2024 10:39 PM CDT CBC WITHOUT DIFFERENTIAL Routine 12/15/2024 10:39 PM CDT APTT STAT 12/15/2024 6:48 AM CDT EGFR Timed 12/15/2024 12:37 AM COMMUNICATIONS DEPARTMENT CHAIRPERSON BASIC METABOLIC PANEL Timed 12/15/2024 12:37 AM COMMUNICATIONS DEPARTMENT CHAIRPERSON CBC WITHOUT DIFFERENTIAL Timed 12/15/2024 12:37 AM COMMUNICATIONS DEPARTMENT CHAIRPERSON APTT STAT 12/15/2024 12:37 AM COMMUNICATIONS DEPARTMENT CHAIRPERSON APTT STAT 12/14/2024 5:25 PM COMMUNICATIONS DEPARTMENT CHAIRPERSON APTT STAT 12/14/2024 9:22 AM COMMUNICATIONS DEPARTMENT CHAIRPERSON APTT STAT 12/14/2024 2:10 AM COMMUNICATIONS DEPARTMENT CHAIRPERSON CTA ABDOMINAL AORTA AND BILATERAL ILIOFEMORAL RUNOFF ED Urgent/IP Urgent 12/13/2024 8:00 PM COMMUNICATIONS DEPARTMENT CHAIRPERSON NC CRITICAL CARE ILL/INJURED PATIENT INIT 30-74 MIN Routine 12/13/2024 7:12 PM COMMUNICATIONS DEPARTMENT CHAIRPERSON EGFR STAT 12/13/2024 6:44 PM COMMUNICATIONS DEPARTMENT CHAIRPERSON DIFFERENTIAL AUTO STAT 12/13/2024 6:4 4 PM COMMUNICATIONS DEPARTMENT CHAIRPERSON PROTIME-INR STAT 12/13/2024 6:44 PM COMMUNICATIONS DEPARTMENT CHAIRPERSON APTT STAT 12/13/2024 6:44 PM COMMUNICATIONS DEPARTMENT CHAIRPERSON TYPE AND SCREEN STAT 12/13/2024 6:44 PM COMMUNICATIONS DEPARTMENT CHAIRPERSON COMPREHENSIVE METABOLIC PANEL STAT 12/13/2024 6:44 PM COMMUNICATIONS DEPARTMENT CHAIRPERSON CBC WITH AUTO DIFFERENTIAL STAT 12/13/2024 6:44 PM COMMUNICATIONS DEPARTMENT CHAIRPERSON POCT CREATININE - DEVICE Routine 12/13/2024 6:42 PM COMMUNICATIONS DEPARTMENT CHAIRPERSON US TRANSFER OF OUTSIDE FILMS Routine 12/13/2024 10:30 AM COMMUNICATIONS DEPARTMENT CHAIRPERSON MSK CT OUTSIDE REFERENCE Routine 12/13/2024 10:29 AM COMMUNICATIONS DEPARTMENT CHAIRPERSON Diagnosis unknown from Last 3 Months Results * (ABNORMAL) Differential, auto (01/08/2025 10:11 AM CDT) Neutrophil abs 9.52(H) 1.50 - 6.50 K/cumm Imm gran abs 0.04 0.00 - 0.10 K/cumm [facility] Lymphocyte abs 4.14(H) 0.80 - 3.30 K/cumm [facility] Monocyte abs 0.89(H) 0.20 - 0.80 K/cumm [facility] Eosinophil abs 0.19 0.00 - 0.50 K/cumm [facility] Basophil abs 0.10 0.00 - 0.10 K/cumm [facility] Neutrophil pct 63.9 % [facility] Comment: Interpretive Data Percent cell count reference ranges are not reported, since discordance with absolute values may lead to misinterpretation of CBC data. Current Interpretive Data was last revised on 2018. Imm gran pct 0.3 % [facility] Comment: Interpretive Data Percent cell count reference ranges are not reported, since discordance with absolute values may lead to misinterpretation of CBC data. Current Interpretive Data was last revised on 2018. Lymphocyte pct 27.8 % [facility] Comment: Interpretive Data Percent cell count reference ranges are not reported, since discordance with absolute values may lead to misinterpretation of CBC data. Current Interpretive Data was last revised on 2018. Monocyte pct 6.0 % [facility] Comment: Interpretive Data Percent cell count reference ranges are not reported, since discordance with absolute values may lead to misinterpretation of CBC data. Current Interpretive Data was last revised on 2018. Eosinophil pct 1.3 % [facility] Comment: Interpretive Data Percent cell count reference ranges are not reported, since discordance with absolute values may lead to misinterpretation of CBC data. Current Interpretive Data was last revised on 2018. Basophil pct 0.7 % [facility] Comment: Interpretive Data Percent cell count reference ranges are not reported, since discordance with absolute values may lead to misinterpretation of CBC data. Current Interpretive Data was last revised on 2018. Blood 01/08/2025 10:1 1 AM CDT 01/08/2025 10:36 AM CDT [facility]i Roa ARCHITECTURAL DESIGN LECTURER LAB BLOOD ORDE RABFRANSISCO Final Result RITCHIE [facility] [place] [address] * (ABNORMAL) CBC with auto differential (01/08/2025 10:11 AM CDT) Pathologist [facility] WBC 14.88(H) 3.80 - 9.90 K/cumm Hgb 10.7(L) 11.9 - 15.5 g/dL [facility] Hct 34.4(L) 35.6 - 45.5 % [facility] Plt 338 150 - 400 K/cumm [facility] MPV 9.9 9.1 - 12.3 fL [facility] RBC 3.95 3.90 - 5.20 M/cumm [facility] MCV 87.1 81.3 - 96.4 fL [facility] MCH 27.1 27.1 - 33.3 pg [facility] MCHC 31.1(L) 32.3 - 35.7 g/dL [facility] RDW CV 25.1(H) 11.1 - 14.9 % [facility] RDW SD 77.6(H) 35.7 - 48.1 fL [facility] NRBC abs 0.00 0.00 - 0.01 K/cumm [facility] Blood 01/08/2025 10:1 1 AM CDT 01/08/2025 10:36 AM CDT Kirsten Negrita Roa ARCHITECTURAL DESIGN LECTURER LAB BLOOD ORDE CHEYANNEFRANSISCO Final Result [facility] [place] [address] * US Arterial Duplex Lower Extremity Right Limited (01/02/2025 4:04 PM CDT) Anatomical Region Laterality Modality Vascular Right Ultrasound 01/02/2025 3:02 PM CDT Narrative 01/03/2025 9:05 PM CDT [facility] - Department of Vascular Surgery, Vascular Laboratory [address] [place] [id number] Lower Extremity Arterial Duplex - Bypass Graft Report Patient Name: JEFFERY HAMILTON : 1970 Study Date: 01/02/2025 3:02:10 PM Gender: F Tech: Location: [facility] Provider: MADELYN VICENTE Quality: Adequate Order Provider: MADELYN VICENTE PROCEDURES: Arterial Report: Common femoral - above knee Popliteal Bypass Graft. INDICATIONS: Z48.812 Encounter for surgical aftercare following surgery on the circulatory system and Z95.828 Presence of other vascular implants and grafts. MEASUREMENTS: Right Value Units Rt Inflow Artery 102 cm/s Rt Proximal Anastomosis 75 cm/s Rt Proximal Graft 64 cm/s Rt Mid Graft 125 cm/s Rt Distal Graft 353 cm/s Rt Distal Anastomosis 109 cm/s Rt Outflow Artery 55 cm/s Right Value Units FINDINGS: Performing Watermelon Inspector: Alta Palacios RVT, RDMS. Right Leg: The inflow waveform is monophasic. Stented. The proximal anastomosis waveform is monophasic. The proximal graft waveform is monophasic. The mid graft waveform is monophasic. Elevated velocity noted. Pre 75cm/s. At 125cm/s. Perigraft fluid noted at the mid graft. Systolic velocity ratio at the distal graft is 4.2 which is consistent with a >75% stenosis. Pre 84cm/s. At 353cm/s. The distal anastomosis waveform is monophasic. The outflow waveform is monophasic. Comments: At the right proximal thigh there is a large mixed echogenicity structure, at the area of the inflow artery and proximal BPG. Provider Notification: Results called on the above date to Madelyn Vicente MD @4:04pm. CONCLUSIONS: 1. See Ankle/Brachial Index report. 2. Patent right DROP WIRER stent. 3. Patent right lower extremity bypass graft with a >75% stenosis at the distal graft level. HISTORY: 12-19-2024 right leg angiogram - above knee stenosis 12-16-2024 femoral embolectomy/thrombectomy, BPG thrombectomy, right leg angioplasty 10-16-2024 right leg angiogram, right leg angioplasty 07-22-2024 right BPG thrombectomy 07-01-2024 right femoral-popliteal BPG Lower limb ischemia, CKD, DVT, HTN, PAD, PVD. PREVIOUS STUDIES: Previous study on 12-17-2024. Patent right DROP WIRER stent. Patent right BPG. DISCLAIMER: The study images and the [...] that is provided above. Electronically Signed By: Claude Garza MD [facility] [phone] 01/03/2025 8:31:22 PM CDT Procedure Note Claude Garza MD - 01/03/2025 [employer] [facility] [employer] [facility] - Department of Vascular Surgery,Vascular Laboratory [address] [place] [address] Lower Extremity Arterial Duplex - Bypass Graft Report Patient Name: JEFFERY HAMILTON : 1970 Study Date: 01/02/2025 3:02:10 PM Gender: F Tech: Location: [facility] [place] Ref Provider: MADELYN VICENTE Quality: Adequate Order Provider: MADELYN VICENTE PROCEDURES: Arterial Report: Common femoral - above knee Popliteal Bypass Graft. INDICATIONS: Z48.812 Encounter for surgical aftercare following surgery on thecirculatory system and Z95.828 Presence of other vascular implants and grafts. MEASUREMENTS: Right Value Units Rt Inflow Artery 102 cm/s Rt Proximal Anastomosis 75 cm/s Rt Proximal Graft 64 cm/s Rt Mid Graft 125 cm/s Rt Distal Graft 353 cm/s Rt Distal Anastomosis 109 cm/s Rt Outflow Artery 55 cm/s Right Value Units FINDINGS: Performing Watermelon Inspector: Alta Palacios RVT, RDMS. Right Leg: The inflow waveform is monophasic. Stented. The proximal anastomosiswaveform is monophasic. The proximal graft waveform is monophasic. The mid graftwaveform is monophasic. Elevated velocity noted. Pre 75cm/s. At 125cm/s. Perigraftfluid noted at the mid graft. Systolic velocity ratio at the distal graft is 4.2 which isconsistent with a >75% stenosis. Pre 84cm/s. At 353cm/s. The distal anastomosis waveform ismonophasic. The outflow waveform is monophasic. Comments: At the right proximal thigh there is a large mixed echogenicity structure,at the area of the inflow artery and proximal BPG. Provider Notification: Results called on the above date to Madelyn Vicente MD @4:04pm. CONCLUSIONS: 1. See Ankle/Brachial Index report. 2. Patent right DROP WIRER stent. 3. Patent right lower extremity bypass graft with a >75% stenosis at thedistal graft level. HISTORY: 12-19-2024 right leg angiogram - above knee stenosis 12-16-2024 femoral embolectomy/thrombectomy, BPG thrombectomy, right legangioplasty 10-16-2024 right leg angiogram, right leg angioplasty 07-22-2024 right BPG thrombectomy 07-01-2024 right femoral-popliteal BPG Lower limb ischemia, CKD, DVT, HTN, PAD, PVD. PREVIOUS STUDIES: Previous study on 12-17-2024. Patent right DROP WIRER stent. Patent right BPG. DISCLAIMER: The study images and the final report will be retained in the patientchart by the Vascular Laboratory for the legally required time period. This chartconstitutes the legal record of any testing performed. ATTESTATION: I have reviewed and interpreted the pertinent images and measurements ofthis study. I attest to the conclusions in the final report that is provided above. Electronically Signed By: Claude Garza MD [facility] [phone] 01/03/2025 8:31:22 PM CDT Madelyn Vicente MD PhD IMG US PROCEDURES Kelsea l Result * US Arterial Doppler Lower Extremity Bilateral (01/02/2025 4:04 PM CDT) Anatomical Region Laterality Modality Vascular Bilateral Ultrasound 01/02/2025 3:29 PM CDT Narrative 01/03/2025 9:06 PM CDT [employer] [facility] [employer] [facility] - Department of Vascular Surgery, Vascular Laboratory [address] [place] [address] Lower Extremity Arterial Doppler Report Patient Name: JEFFERY HAMILTON : 1970 Study Date: 01/02/2025 3:29:00 PM Gender: F Tech: Alta Palacios RVT, RDMS Location: [facility] Provider: MADELYN VICENTE Quality: Adequate Order Provider: MADELYN VICENTE PROCEDURES: Arterial Report: Bilateral lower extremity arterial Doppler exam at rest. INDICATIONS: Z48.812 Encounter for surgical aftercare following surgery on the circulatory system. MEASUREMENTS: Right Value Units Left Value Units Rt Brachial Pressure 156 mmHg Lt Brachial Pressure 152 mmHg Rt BRUSH CLEANER Pressure 138 mmHg Lt BRUSH CLEANER Pressure 120 mmHg Rt DPA Pressure 126 mmHg Lt DPA Pressure 114 mmHg Rt 1st Digit Pressure 90 mmHg Lt 1st Digit Pressure 122 mmHg Rt PT KAROLYN Resting 0.88 Lt PT KAROLYN Resting 0.77 Rt AT KAROLYN Resting 0.81 Lt AT KAROLYN Resting 0.73 Rt Digit/Arm Index 0.58 Lt Digit/Arm Index 0.78 Right Value Units Left Value Units FINDINGS: Performing Watermelon Inspector: Alta Palacios RVT, RDMS. Right Common Femoral Artery Analysis: The common femoral artery waveform is monophasic. Right Popliteal Artery Analysis: The popliteal artery waveform is monophasic with preserved sharp upstroke. Right Posterior Tibial Artery Analysis: The posterior tibial artery waveform is monophasic with preserved sharp upstroke. Right Anterior Tibial Artery Analysis: The anterior tibial artery waveform is monophasic with preserved sharp upstroke. Right Digits: The right digit waveform is dampened. Left Common Femoral Artery Analysis: The common femoral artery waveform is monophasic with preserved sharp upstroke. Left Popliteal Artery Analysis: The popliteal waveform is monophasic. Left Posterior Tibial Artery Analysis: The posterior tibial artery waveform is monophasic with preserved sharp upstroke. Left Anterior Tibial Artery Analysis: The anterior tibial waveform is monophasic. Left Digits: Normal left digit pressure and dampened waveform. CONCLUSIONS: 1. The above listed right Ankle/Brachial Index at rest is consistent with moderate peripheral arterial disease - claudication (for reference, claudication range is 0.50 -0.89). 2. The above listed left Ankle/Brachial Index at rest is consistent with moderate peripheral arterial disease - claudication, (for reference, claudication range is 0.50 -0.89). 3. Right Digit/Arm Index is abnormal (for reference, abnormal CORINA is <0.6). 4. Left Digit/Arm Index is within normal limits (for reference, normal CORINA is >0.6). 5. There is evidence of arterial insufficiency bilaterally at the level of aorta-iliac, common femoral (inflow) arteries. HISTORY: 12-19-2024 right leg angiogram - above knee stenosis 12-16-2024 femoral embolectomy/thrombectomy, BPG thrombectomy, right leg angioplasty 10-16-2024 right leg angiogram, right leg angioplasty 07-22-2024 right BPG thrombectomy 07-01-2024 right femoral-popliteal BPG Lower limb ischemia, CKD, DVT, HTN, PAD, PVD. PREVIOUS STUDIES: Previous study on 11-27-2024. R 0.86. L 0.86. DISCLAIMER: The study images and the final [...] that is provided above. Electronically Signed By: Claude Garza MD [facility] [phone] 01/03/2025 8:56:56 PM CDT Procedure Note Claude Garza MD - 01/03/2025 [facility] - Department of Vascular Surgery,Vascular Laboratory [address] [place] [address] Lower Extremity Arterial Doppler Report Patient Name: JEFFERY HAMILTON : 1970 Study Date: 01/02/2025 3:29:00 PM Gender: F Tech: Alta Palacios RVT, RDMS Location: [facility] Provider: MADELYN VICENTE Quality: Adequate Order Provider: MADELYN VICENTE PROCEDURES: Arterial Report: Bilateral lower extremity arterial Doppler exam at rest. INDICATIONS: Z48.812 Encounter for surgical aftercare following surgery on thecirculatory system. MEASUREMENTS: Right Value Units Left Value Units Rt Brachial Pressure 156 mmHg Lt Brachial Pressure 152 mmHg Rt BRUSH CLEANER Pressure 138 mmHg Lt BRUSH CLEANER Pressure 120 mmHg Rt DPA Pressure 126 mmHg Lt DPA Pressure 114 mmHg Rt 1st Digit Pressure 90 mmHg Lt 1st Digit Pressure 122 mmHg Rt PT KAROLYN Resting 0.88 Lt PT KAROLYN Resting 0.77 Rt AT KAROLYN Resting 0.81 Lt AT KAROLYN Resting 0.73 Rt Digit/Arm Index 0.58 Lt Digit/Arm Index 0.78 Right Value Units Left Value Units FINDINGS: Performing Watermelon Inspector: Alta Palacios RVT, RDMS. Right Common Femoral Artery Analysis: The common femoral artery waveform is monophasic. Right Popliteal Artery Analysis: The popliteal artery waveform is monophasic with preserved sharpupstroke. Right Posterior Tibial Artery Analysis: The posterior tibial artery waveform is monophasic with preserved sharpupstroke. Right Anterior Tibial Artery Analysis: The anterior tibial artery waveform is monophasic with preserved sharpupstroke. Right Digits: The right digit waveform is dampened. Left Common Femoral Artery Analysis: The common femoral artery waveform is monophasic with preserved sharpupstroke. Left Popliteal Artery Analysis: The popliteal waveform is monophasic. Left Posterior Tibial Artery Analysis: The posterior tibial artery waveform is monophasic with preserved sharpupstroke. Left Anterior Tibial Artery Analysis: The anterior tibial waveform is monophasic. Left Digits: Normal left digit pressure and dampened waveform. CONCLUSIONS: 1. The above listed right Ankle/Brachial Index at rest is consistent withmoderate peripheral arterial disease - claudication (for reference, claudicationrange is 0.50 -0.89). 2. The above listed left Ankle/Brachial Index at rest is consistent withmoderate peripheral arterial disease - claudication, (for reference, claudicationrange is 0.50 -0.89). 3. Right Digit/Arm Index is abnormal (for reference, abnormal CORINA is<0.6). 4. Left Digit/Arm Index is within normal limits (for reference, normal DAIis >0.6). 5. There is evidence of arterial insufficiency bilaterally at the level ofaorta-iliac, common femoral (inflow) arteries. HISTORY: 12-19-2024 right leg angiogram - above knee stenosis 12-16-2024 femoral embolectomy/thrombectomy, BPG thrombectomy, right legangioplasty 10-16-2024 right leg angiogram, right leg angioplasty 07-22-2024 right BPG thrombectomy 07-01-2024 right femoral-popliteal BPG Lower limb ischemia, CKD, DVT, HTN, PAD, PVD. PREVIOUS STUDIES: Previous study on 11-27-2024. R 0.86. L 0.86. DISCLAIMER: The study images and the final report will be retained in the patientchart by the Vascular Laboratory for the legally required time period. This chartconstitutes the legal record of any testing performed. ATTESTATION: I have reviewed and interpreted the pertinent images and measurements ofthis study. I attest to the conclusions in the final report that is provided above. Electronically Signed By: Claude Garza MD [facility] [phone] 01/03/2025 8:56:56 PM CDT Madelyn Vicente MD PhD IMG US PROCEDURES Kelsea l Result * FL Fluoroscopy < 1 Hour (12/19/2024 9:52 AM CDT) Narrative [facility] - 12/19/2024 9:53 AM CDT The images from this study are not interpreted by Radiology. Please refer to the physician's procedure / OR operative note. Claude Garza MD IMG FLUOROSCOPY PROCEDURES Fin al Result [facility] * NC AN PROCEDURE PLACEHOLDER (12/19/2024 9:45 AM CDT) Narrative Justin Jose MD PhD - 12/19/2024 9:45 AM CDT Justin Jose MD PhD 12/19/2024 9:45 AM Peripheral IV Catheter Patient location: OR Staff: Placed by: Anesthesiologist: Jsutin Jose MD PhD Preprocedure prep: Prep solution: chlorhexadine PPE: gloves and provider hat/mask PIV line: Laterality: right Site: forearm Catheter size: 18 g Technique: anatomical landmarks Procedure details: good blood return Number of attempts: 1 Assessment: Events: patient tolerated procedure well with no complications Result [facility] Justin Jose MD PhD ANESTHESIA ORDERABLES Final R esult * NC AN PROCEDURE PLACEHOLDER (12/19/2024 9:44 AM CDT) Narrative Justin Jose MD PhD - 12/19/2024 9:44 AM CDT Justin Jose MD PhD 12/19/2024 9:44 AM Arterial Line Patient location: OR Staff: Supervising provider: Justin Jose MD PhD Placed by: Resident: Rima Dc MD Procedure prep: Prep solution: chlorhexadine/alcohol Prep: sterile gloves Arterial line: Catheter size: 20 gauge Other catheter type: vygon Laterality: left Site: radial artery Line secured: tape and Tegaderm Results: good waveform Number of attempts: 1 Assessment: Events: patient tolerated procedure well with no complications Justin Jose MD PhD ANESTHESIA ORDERABLES Final R esult * ANGIOGRAM (12/19/2024 9:34 AM CDT) Anatomical Region Laterality Modality X-Ray Angiograph y Narrative 12/19/2024 10:35 AM CDT Please see OpNote for result. Claude Garza MD SURGICAL CASE ORDERS Final Res ult * (ABNORMAL) POC Blood Gas and Chemistries, Arterial - (12/19/2024 9:01 AM CDT) pH, Art POC 7.47(H) 7.35 - 7.45 pCO2, Art POC 40 35 - 45 mmHg [facility] pO2, Art POC 160(H) 83 - 108 mmHg [facility] Na, POC 141 135 - 145 mmol/L [facility] K POC 4.0 3.3 - 4.9 mmol/L [facility] Comment: Interpretive Data Not all point of care methods assess for hemolysis. Confirm with instrument and retest K+ if not consistent with clinical signs and symptoms. Current Interpretive Data was last revised on 2024. Cl, POC 111(H) 97 - 110 mmol/L [facility] Ionized Ca, POC 4.87 4.50 - 5.10 mg/dL [facility] Glucose, POC 94 70 - 199 mg/dL [facility] Lactate, POC 1.2 0.7 - 2.0 mmol/L [facility] SO2 (pedrito) arterial 100(H) 90 - 95 % [facility] Base excess, POC 5.0 mmol/L [facility] HCO3, Art POC 29 20 - 30 mmol/L [facility] Hct, POC 29.0(L) 36.3 - 45.3 % [facility] Total Hb, POC 9.5(L) 11.9 - 15.5 g/dL [facility] Blood 12/19/2024 9:01 AM CDT 12/19/2024 9:01 AM CDT Claude Garza MD LAB POCT ORDERABLES - DEVICE F inal Result [facility] Department [place] [address] * POCT Activated clotting time, low range (12/19/2024 8:51 AM CDT) ACT 133 123 - 168 sec POC Performer [id number] [facility] POC Device Number [id number] [facility] Blood 12/19/2024 8:51 AM CDT 12/19/2024 8:51 AM CDT us Claude Garza MD LAB POCT ORDERABLES - DEVICE F inal Result [facility] Department [place] [address] * Airway (12/19/2024 8:41 AM CDT) Narrative Rima Dc MD - 12/19/2024 8:41 AM CDT Rima Dc MD 12/19/2024 8:44 AM Airway Patient location: OR Urgency: elective Indications for airway management: anesthesia Difficult airway: no Staff: Supervising provider: Justin Jose MD PhD Placed by: Resident: Rima Dc MD Emergent airway documentation: Risks and benefits discussed: yes Consent obtained: yes Consent given by: patient Airway prep: Preoxygenated: yes Patient position: sniffing Mask difficulty assessment: 0 - not attempted Sedation level during airway: GA Final airway details: Final airway type: endotracheal airway Tube type: ETT ETT size: 7.0 mm Cuffed: yes Technique used for successful ETT placement: video laryngoscopy Insertion site: oral Blade type: Reshma Video blade type: Glidescope and Finn Blade size: 3 Cormack-Lehane (direct): grade I - full view of glottis Cuff inflated with: air ETT to teeth: 23 cm Placement verified by: auscultation and CO2 detection Airway secured with: silk tape Number of attempts: 1no us Justin Jose MD PhD ANESTHESIA ORDERABLES Final R esult * JAK2/CALR/MPL testing cascade (12/18/2024 11:26 PM CDT) Pathologist [facility] JAK2 V617F Not Detected Not Detected [facility] JAK2 V617F Interpretation Not detected: JAK2 V617F mutation was not detected. As ordered, reflex testing for CALR and MPL mutations will be performed and reported separately. A negative JAK2 V617F result may be caused by one of several factors, including absence of Myeloproliferativ e Neoplasm (MPN) or presence of JAK2 P432L-[id number] MPN. A JAK2 V617F mutation is detected in 98% of patients with polycythemia vera (PV), 55% of patients with essential thrombocythemia (ET), and 60% of patients with primary myelofibrosis (PMF). This JAK2 V617F test result should be interpreted within the context of clinical and pathological findings for a definitive diagnosis. [facility] JAK2 V617F Specimen Blood [facility] JAK2 V617F Result Review Final report reviewed by: PAUL Devi([facility]) Vending Machine Repairer, on 12/27/2024 11:23:10 CDT. [facility] Comment: Interpretive Data Method: The assay detects the JAK2 V617F ([id number]: [id number]) mutation using PCR primers and allele-specific dye-labeled oligonucleotides that exactly match the mutant or normal alleles. When perfectly hybridized to the template DNA sequence, the labeled oligonucleotides are cleaved by the 5 -> 3 exonuclease activity of DNA polymerase. Cleavage during the exponential phase of PCR releases the tool and die supervisor dye from the quencher and the signal is quantified (real time quantitative PCR). The results report the mutant allele proportion of total JAK2 alleles. The validated limit of detection for this assay is 0.1%. FDA Comment: This test was developed and its performance characteristics determined by this [facility]. It has not been cleared or approved by the U.S. Food and Drug Administration. FDA does not require this test to go through premarket FDA review. This test is used for clinical purposes. It should not be regarded as investigational or for research. This laboratory is certified under the Clinical Laboratory Improvement Amendments (CLIA) as qualified to perform high complexity clinical laboratory testing. Literature References: 1. Anastacio Lopez D, Kishore R, Rena RC. Genetic basis and molecular profiling in myeloproliferative neoplasms. Blood. 2022Jan 26;14116):5390 2 198. PMCID: [id number] This test was performed at: [facility], [facility], [facility]#[id number], Connie Stacy, Ph.D., [place], [address], [place] Current interpretive data was last revised 2024. Blood 12/18/2024 11:2 6 PM CDT 12/19/2024 8:54 AM CDT April Villarreal ARCHITECTURAL DESIGN LECTURER LAB GENETIC TESTING F inal Result RITCHIE PLASCENCIA [facility] [place] [address] [facility] * CALR with reflex to MPL (myeloproliferative neoplasm) (12/18/2024 11:26 PM CDT) CALR/MPL Specimen type See Footnote Comment:RESULT: DNA from PB - EDTA CALR/MPL Result See Footnote RITCHIE EVANS Comment:RESULT: see interpre tation CALR/MPL Final diagnosis See Footnote RITCHIE EVANS Comment: Extracted DNA from peripheral blood, CALR mutation analysis, exon 9: Negative. No deletion or insertion was detected in CALR, exon 9. Method Summary - CALR: Exon 9 of CALR was amplified from genomic DNA by polymerase chain reaction (PCR). The size of the PCR product was analyzed by capillary electrophoresis. The analytic sensitivity of this assay is approximately 6% for the majority of CALR mutations and is approximately 20% for the rare type 1-bp deletion. Extracted DNA from peripheral blood, MPL exon 10 mutation analysis: Negative. No mutation was detected in MPL, exon 10. Method summary - MPL exon 10 mutation analysis: Genomic DNA was extracted and [place] sequencing used to evaluate for mutations in MPL, exon 10. The sensitivity of this assay is approximately 20%, such that samples containing lower percentages of mutated DNA will appear negative. Comment: Negative results for CALR exon 9 and MPL exon 10 mutations do not exclude the possibility of a myeloproliferative neoplasm. Correlation with clinical and morphologic findings is recommended for a definitive diagnosis. Samples containing mutations in these genes at levels below the analytical sensitivity of each assay may not be detected by these methods. If clinical suspicion is high for polycythemia vera and [id number] (JAK2B, JAK2M, or JAK2V) was tested negative, JAK2 Exon 12 analysis could be considered (JAKXB or JAKXM). Signing Pathologist: Yulisa Francis D.O.SGenaro ADDITIONAL INFORMATION This test was developed and its performance characteristics determined by [facility] in a manner consistent with CLIA requirements. This test has not been cleared or approved by the U.S. Food and Drug Administration. Test Performed by: [place] [address] Cryptologic Technician: Artis Lauren Ph.D.; CLIA# [id number] Blood 12/18/2024 11:2 6 PM CDT 12/27/2024 12:09 PM CDT Narrative [facility] - 01/06/2025 10:29 AM CDT CALR, MPL Reflex order reflexed from JAK2/CALR/MPL testing cascade. April Villarreal LAB BLOOD ORDERABLES Final Result [facility] [place] [address] * (ABNORMAL) Lupus Anticoagulant Panel plus Reflexes (12/18/2024 11:26 PM CDT) PT 11.0 9.7 - 13.0 sec INR 1.02 0.90 - 1.20 [facility] Comment: Interpretive data Oral anticoagulant therapeutic ranges: Venous thromboembolism prophylaxis or treatment: 2.0-3.0 CARDIOLOGY Standard range: 2.0-3.0 High-intensity range: 2.5-3.5 Refer to indication-specific guidelines for appropriate target ranges for prosthetic heart valve replacement. Current interpretive data was last revised on 2019. aPTT 84(H) 28 - 38 sec [facility] Comment: Interpretive Data Heparin therapeutic range: 66.0 - 100.0 seconds. Range based on correlation with therapeutic heparin activity range of 0.3 - 0.7 Units/mL. Current interpretive data was last revised on 2023. DRVVT screen ratio 1.23(H) 0.00 - 1.20 Ratio [facility] DRVVT confirm ratio 1.24 Ratio [facility] DRVVT S/C Ratio 0.99 0.00 - 1.20 Ratio [facility] SCT Screen Ratio 0.83 0.00 - 1.16 Ratio [facility] Lupus anticoagulant, interp Negative [facility] Comment: Interpretive data Lupus anticoagulants (LA) are acquired autoantibodies that interfere with invitro clotting in a phospholipid-dependent manner and are associated with an increased risk of thromboembolic events and complications. Routine APTT and PT reagents are not sensitive to inhibition by LA, and should not be used as screening tests. The laboratory follows ISTH 2009 guidelines (Kamario, 2009) for LA testing and interpretation: Two sensitive methods performed in parallel improve sensitivity. One activates the intrinsic pathway (Silica-APTT) and one activates the common pathway (dilute Nolan's viper venom time - dRVVT). Each method begins with a SCREEN step, and if neither is prolonged, no further testing is performed and the interpretation is: NO LA DETECTED. If either screening test is prolonged, then additional steps are performed to provide specificity. A POSITIVE LA result occurs if either one or both tests produce a positive CONFIRM result. An INDETERMINATE result means results cannot distinguish between coagulopathy and a weak LA. Consider retesting when PT/INR is less prolonged, if clinical indicated. To support laboratory confirmation of antiphospholipid syndrome, persistence of a positive LA result should be verified by repeat testing at least 12 weeks later (Rayshawn, 2006). Prior to LA testing, the laboratory screens patient plasma samples for evidence of heparin contamination, which is neutralized prior to LA testing, and the following interfering conditions which require canceling LA testing: INR >3.0, fibrinogen < 100 mg/dl, use of direct oral or IV anticoagulants other than heparin. References: 1) Randolph V, Lara A, Barrett JH, Ortanner TL, Delma M, De Libby PG. Update of the guidelines for lupus anticoagulant detection. J Thromb Haemost. 2009; 7:5488-2245. 2. Rayshawn S. et al. International consensus statement on an update of the classification criteria for definite antiphospholipid syndrome (APS). J Thromb Haemost. 2006; 4:295-306. Current interpretive data was last revised on 2018 Blood 12/18/2024 11:2 6 PM CDT 12/19/2024 12:50 AM CDT us April Villarreal NP LAB BLOOD ORDERABLES Final Result Performing Organization Address [facility]/ZIP Co de Phone Number [facility] Department [place] [address] * (ABNORMAL) eGFR (12/18/2024 11:26 PM CDT) eGFR 57(L) >=60 mL/min/1. 73 m2 Comment: Interpretive Data [...] interpretive data was last reviewed 2021. Blood 12/18/2024 11:2 6 PM CDT 12/19/2024 12:34 AM CDT us Claude Garza MD LAB BLOOD ORDERABLES Final Res ult [facility] [place] [address] * Cardiolipin antibody, IgG (12/18/2024 11:26 PM CDT) Pathologist [facility] Cardiolipin, IgG <1.6 <=19.9 GPL U/mL Comment: Interpretive Data Negative: <20 GPL U/mL Positive: > or = 20 GPL U/mL Anticardiolipin antibodies are associated with certain clinical events including unexplained arterial and venous thromboemboli, and unexplained morbidity. However, detection of low levels of anticardiolipin antibodies occurs in both healthy individuals and patients with co-morbidities not associated with the antiphospholipid antibody (APA) syndrome including inflammatory and infectious conditions. In order to improve specificity, the International Congress on Antiphospholipid Antibodies recommends ACL antibodies of IgG or IgM isotype present in medium or high titer (e.g. > 40 GPL, or >the 99th percentile), on two or more occasions, at least 12 weeks apart, to support a diagnosis of antiphospholipid syndrome. The cutoff for this assay was developed from data based on the 99th percentile. In addition, the International Congress on Antiphospholipid Antibodies does not recommend testing for IgA ARCHANA. These results were obtained with the [employer] 2200 System. Cardiolipin IgG values obtained with different manufacturers' assay methods may not be used interchangeably. Current interpretive data was last revised on 2017. Blood 12/18/2024 11:2 6 PM CDT 12/19/2024 12:34 AM CDT April Villarreal ARCHITECTURAL DESIGN LECTURER LAB BLOOD ORDERABLES Final Result [facility] Department [place] [address] * Beta 2 glycoprotein IgM Ab (12/18/2024 11:26 PM CDT) Pathologist [facility] Beta-2 glycoprotein I, IgM 0.2 <=19.9 units/mL Comment: Interpretive Data Negative: <20 U/mL Positive: > or = 20 U/mL Beta- 2 glycoprotein 1 (Beta-2 GP1) antibodies are a more specific marker of thrombotic risk. It is expected that some samples will be ACL positive and Beta- 2 GP1 negative. In order to improve specificity, the International Congress on Antiphospholipid Antibodies recommends Beta-2 GP1 antibodies of IgG or IgM isotype (> the 99th percentile), obtained twice, at least 12 weeks apart, to support a diagnosis of antiphospholipid syndrome. The cutoff for this assay was developed from data based on the 99th percentile. The Beta-2 GP1 IgM test can produce false positive results due to cross-reactivity with Rheumatoid factor. These results were obtained with the [employer] 2200 System. Beta-2 GP1 IgM values obtained with different manufacturers' assay methods may not be used interchangeably. Current interpretive data was last revised on 2017. Blood 12/18/2024 11:2 6 PM CDT 12/19/2024 12:35 AM CDT April Villarreal ARCHITECTURAL DESIGN LECTURER LAB BLOOD ORDERABLES Final Result Performing Organization Address City/State/[facility] Co de Phone Number [facility] Department [place] [address] * Beta 2 glycoprotein IgG Ab (12/18/2024 11:26 PM CDT) [facility] Beta-2 glycoprotein I, IgG <1.4 <=19.9 units/mL Comment: Interpretive Data Negative: <20 U/mL Positive: > or = 20 U/mL Beta-2 glycoprotein 1 (Beta-2 GP1) antibodies are a more specific marker of thrombotic risk. It is expected that some samples will be ACL positive and Beta- 2 [id number]. In order to improve specificity, the International Congress on Antiphospholipid Antibodies recommends Beta-2 GP1 antibodies of IgG or IgM isotype (> the 99th percentile), obtained twice, at least 12 weeks apart, to support a diagnosis of antiphospholipid syndrome. The cutoff for this assay was developed from data based on the 99th percentile. These results were obtained with the [employer] 2200 System. Beta 2GP1 IgG values obtained with different manufacturers' assay methods may not be used interchangeably. Current interpretive data was last revised on 2017. Blood 12/18/2024 11:2 6 PM CDT 12/19/2024 12:35 AM CDT April Rocha Phil ARCHITECTURAL DESIGN LECTURER LAB BLOOD ORDERABLES Final Result [facility] [place] [address] * Cardiolipin antibody, IgM (12/18/2024 11:26 PM CDT) Cardiolipin, IgM 0.3 <=19.9 MPL U/mL Comment: Interpretive Data Negative: <20 MPL U/mL Positive: > or = 20 MPL U/mL Anticardiolipin antibodies are associated with certain clinical events including unexplained arterial and venous thromboemboli, and unexplained morbidity. However, detection of low levels of anticardiolipin antibodies occurs in both healthy individuals and patients with co-morbidities not associated with the antiphospholipid antibody (APA) syndrome including inflammatory and infectious conditions. In order to improve specificity, the International Congress on Antiphospholipid Antibodies recommends ACL antibodies of IgG or IgM isotype present in medium or high titer (e.g. > 40 MPL, or >the 99th percentile), on two or more occasions, at least 12 weeks apart, to support a diagnosis of antiphospholipid syndrome. The cutoff for this assay was developed from data based on the 99th percentile. In addition, the International Congress on Antiphospholipid Antibodies does not recommend testing for IgA ARCHANA. The ACL IgM test can produce false positive results due to cross-reactivity with Rheumatoid factor, dsDNA or certain infectious disease antibodies. These results were obtained with the [employer] 2200 System. Cardiolipin IgM values obtained with different manufacturers' assay methods may not be used interchangeably. Current interpretive data was last revised on 2017. Blood 12/18/2024 11:2 6 PM CDT 12/19/2024 12:34 AM CDT April Villarreal ARCHITECTURAL DESIGN LECTURER LAB BLOOD ORDERABLES Final Result [facility] Department [place] [address] * [facility] profile (12/18/2024 11:26 PM CDT) Pathologist [facility] RBC-CD59 Test Completed [facility] WBC-CD59 Test Completed [facility] FLAER Test Completed [facility] Interpretation See separate Surgical Pathology report. [facility] Blood 12/18/2024 11:2 6 PM CDT 12/19/2024 12:34 AM CDT Narrative [facility] - 12/19/2024 2:05 PM CDT This test was developed and its performance characteristics determined by the [facility]. It has not been cleared or approved by the US Food and Drug Administration. This test is used for clinical purposes. It should not be regarded as investigational or for research. This laboratory is certified under the Clinical Laboratory Improvement Amendments (CLIA) as qualified to perform high complexity clinical laboratory testing. If reference ranges are not populated, there is no established reference range for that parameter for the patient s age. This test was developed and its performance characteristics determined by the [facility]. It has not been cleared or approved by the US Food and Drug Administration. This test is used for clinical purposes. It should not be regarded as investigational or for research. This laboratory is certified under the Clinical Laboratory Improvement Amendments (CLIA) as qualified to perform high complexity clinical laboratory testing. If reference ranges are not populated, there is no established reference range for that parameter for the patient s age. April Villarreal ARCHITECTURAL DESIGN LECTURER LAB BLOOD ORDERABLES Final Result [facility] Department [place] [address] * (ABNORMAL) aPTT (12/18/2024 11:26 PM CDT) Pathologist [facility] aPTT 72(H) 28 - 38 sec Comment: Interpretive Data Heparin therapeutic range: 66.0 - 100.0 seconds. Range based on correlation with therapeutic heparin activity range of 0.3 - 0.7 Units/mL. Current interpretive data was last revised on 2023. Blood 12/18/2024 11:2 6 PM CDT 12/19/2024 12:42 AM CDT Claude Garza MD LAB BLOOD ORDERABLES Final Res ult [facility] [place] [address] * (ABNORMAL) CBC without differential (12/18/2024 11:26 PM CDT) WBC 13.7(H) 3.8 - 9.9 K/cumm Hgb 11.0(L) 11.9 - 15.5 g/dL [facility] Hct 36.0 35.6 - 45.5 % [facility] Plt 241 150 - 400 K/cumm [facility] MPV 11.2 9.1 - 12.3 fL [facility] RBC 4.13 3.90 - 5.20 M/cumm [facility] MCV 87.2 81.3 - 96.4 fL [facility] MCH 26.6(L) 27.1 - 33.3 pg [facility] MCHC 30.6(L) 32.3 - 35.7 g/dL [facility] RDW CV Not Measured 11.1 - 14.9 % [facility] RDW SD Not Measured 35.7 - 48.1 fL [facility] NRBC abs 0.00 0.00 - 0.01 K/cumm [facility] Blood 12/18/2024 11:2 6 PM CDT 12/19/2024 12:34 AM CDT us Claude Garza MD LAB BLOOD ORDERABLES Final Res ult [facility] [place] [address] * Phosphorus (12/18/2024 11:26 PM CDT) Phosphorus, pl 2.7 2.3 - 4.5 mg/dL Blood 12/18/2024 11:2 6 PM CDT 12/19/2024 12:34 AM CDT Claude Garza MD LAB BLOOD ORDERABLES Final Res ult Performing Organization Address [facility] de Phone Number [facility] Department [place] [address] * (ABNORMAL) Magnesium (12/18/2024 11:26 PM CDT) Pathologist [facility] Magnesium 2.6(H) 1.4 - 2.5 mg/dL Blood 12/18/2024 11:2 6 PM CDT 12/19/2024 12:34 AM CDT Claude Garza MD LAB BLOOD ORDERABLES Final Res ult Performing Organization Address [facility] de Phone Number [facility] [place] [address] * (ABNORMAL) Basic metabolic panel (12/18/2024 11:26 PM CDT) Pathologist [facility] Sodium 146(H) 135 - 145 mmol/L Potassium, pl 3.9 3.3 - 4.9 mmol/L [facility] Chloride 105 97 - 110 mmol/L [facility] CO2 32 22 - 32 mmol/L [facility] Anion gap 9 2 - 15 mmol/L [facility] BUN 13 6 - 25 mg/dL [facility] Creatinine 1.15(H) 0.60 - 1.10 mg/dL [facility] Glucose 117 70 - 199 mg/dL [facility] Comment: Interpretive Data Fasting glucose >/= 126 [...] classification and Diagnosis of Diabetes Diabetes Care 202; 46: S19-S40. Current interpretive data was last revised 2022. Calcium 9.3 8.5 - 10.3 mg/dL [facility] Blood 12/18/2024 11:2 6 PM CDT 12/19/2024 12:34 AM CDT us Claude Garza MD LAB BLOOD ORDERABLES Final Res [facility] [place] [address] * Surgical pathology (12/18/2024 11:25 PM CDT) Blood 12/18/2024 11:2 5 PM CDT 12/19/2024 9:23 AM CDT Narrative 12/20/2024 7:50 PM CDT EPIC results best viewed via link to PDF [facility] [place] [address] Note to Patients: This report may contain a detailed description of human tissue sent by a health care provider to the laboratory for pathologic evaluation. The content of this report is essential for diagnosis and may provide important critical findings. This information may be unfamiliar to patients to review without a medical professional present. It is advised that the patient review this report in the presence of a health care provider who can answer questions and explain the details. SURGICAL PATHOLOGY REPORT FINAL Patient Name: JEFFERY HAMILTON Gender: F : 1970 (Age: 54) Address: [address] [place] [id number] Hospital #: [id number] Taken:12/18/2024 Received:12/19/2024 Reported: 12/20/2024 Patient Type: [facility] Inpatient Service: Vascular Location: [facility] [address] Physician(s): Suleman Medellin Diagnosis: Peripheral blood for [facility] flow cytometry: - No immunophenotypic evidence of paroxysmal nocturnal hemoglobinuria [facility]/12/19/2024 17:23 By this signature, I attest that the above diagnosis is based upon my personal examination of the slides(and/or other material indicated in the diagnosis). Bridgett White M.D. Report Electronically Reviewed and Signed Out By Bridgett White M.D. 12/20/2024 19:50:05 Microscopic Description and Comment: Flow cytometry performed on the peripheral blood shows retained expression of CD59 in red blood cells and granulocytes. Furthermore, granulocytes demonstrate retained FLAER binding. Flow cytometry was performed using antibodies to the following cellular antigens: CD45, SQ645m, CD15, CD59, FLAER. Total antigens analyzed: 5 History: The patient is a 54-year-old woman with history of recurrent DVT and arterial thrombus. Specimen(s) Received: A: Peripheral blood for [facility] flow cytometry Gross Description: { Not Entered } Gross Pathologist: No pathologist assigned By this signature, I attest that the above diagnosis is based upon my personal examination of the slides(and/or other material). Addenda/Procedures The performance characteristics of some immunohistochemical stains, fluorescence in-situ hybridization tests and immunophenotyping by flow cytometry cited in this report (if any) were determined by the Surgical Pathology and Flow Cytometry Departments at [facility] as part of an ongoing clinical quality analyst program and in compliance with federally mandated regulations drawn from the Clinical Laboratory Improvement Act of 1988 (CLIA '88). Some of these tests rely on the use of analyte specific reagents and are subject to specific labeling requirements by the US Food and Drug Administration. Such diagnostic tests may only be performed in a facility that is certified by the Department of Health and Human Services as a high complexity laboratory under CLIA '88. The FDA has determined that such clearance or approval is not necessary. This test is used for clinical purposes. It should not be regarded as investigational or for research. Nevertheless, federal rules concerning the medical use of analyte specific reagents require that the following disclaimer be attached to the report: This test was developed and its performance characteristics determined by the Surgical Pathology and Flow Cytometry Departments of [facility]. It has not been cleared or approved by the U. S. Food and Drug Administration. IMAGES AND SCANNED DOCUMENTS, IF INCLUDED, ONLY VIEWABLE IN PDF VERSION OF REPORT us April Villarreal NP LAB PATHOLOGY ORDERAB LES Final Result * (ABNORMAL) aPTT (12/18/2024 4:22 PM CDT) aPTT 89(H) 28 - 38 sec Comment: Interpretive Data Heparin therapeutic range: 66.0 - 100.0 seconds. Range based on correlation with therapeutic heparin activity range of 0.3 - 0.7 Units/mL. Current interpretive data was last revised on 2023. Blood 12/18/2024 4:22 PM CDT 12/18/2024 4:51 PM CDT Narrative [facility] - 12/18/2024 4:59 PM CDT STAT PTT timing: - Draw 6 hours after heparin infusion initiation - Draw 6 hours after every dose change until 2 consecutive PTTs are therapeutic - Once 2 consecutive PTTs are therapeutic, obtain with daily labs until infusion is discontinued - - Restart every 6 hour lab draws and follow instructions accordingly if PTT is outside of therapeutic range Do not draw lab from IV line that is actively infusing heparin. Use the opposite arm. If arm with actively infusing heparin must be used, pause the infusion for at least 2 minutes, and draw specimen below the IV site. For patients with a central venous catheter (CVC), lab must be drawn peripherally (not from CVC). us Claude Garza MD LAB BLOOD ORDERABLES Final Res ult [facility] [place] [address] * CTA Abdominal Aorta And Bilateral Iliofemoral Runoff (12/18/2024 11:13 AM CDT) Anatomical Region Laterality Modality Body Bilateral Computed Tomogra phy 12/18/2024 12:0 8 PM CDT Impressions 12/18/2024 5:40 PM CDT 1. Postprocedural changes of open thrombectomy with interval patency of the common femoral to popliteal bypass graft with new short segment moderate to severe narrowing of the graft distally. This area of narrowing is more proximal to the previously seen area of narrowing in the distal graft when compared to CT dated 10/07/2024. There is unchanged predominantly 1 vessel runoff to the right ankle via the posterior tibial artery with possible thready flow in the anterior tibial artery, though evaluation is limited due to early opacification of adjacent veins in setting of hyperemia. 2. Interval stenting of the right common femoral and proximal deep femoral arteries as well as proximal bypass graft which are patent. 3. New dissection flap in the proximal and distal right external iliac artery. 4. 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 Dictated by: Linda Morillo MD The radiology attending physician has personally reviewed this study, and had reviewed and/or edited this written report and agrees with it. Electronically signed by: Romana Jolly M.D. 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 Vascular 3D images were generated on a dedicated workstation and also reviewed. COMPARISON: CTA dated 12/13/2024 FINDINGS: VASCULAR FINDINGS: Abdominal Aorta and Branches: Celiac axis: Unchanged occlusion of the celiac artery, with reconstitution of flow in the common hepatic artery supplied by branches of the inferior mesenteric artery. SMA: no significant stenosis TY: no significant stenosis Right renal vessels: no significant stenosis Left renal vessels: no significant stenosis Infrarenal aorta: no significant stenosis. No aneurysm. Pelvic Vessels: R. Common iliac artery: no significant stenosis R. External iliac artery: New thin dissection flap originating in the proximal and distal right external iliac artery (series 4, image 300 and 352). Moderate atherosclerotic calcification with multifocal up to mild stenoses. Interval placement of stent extending from the distal right external iliac artery to the common and deep femoral arteries and the proximal portion of the graft. R. Internal iliac artery: Multifocal mild to moderate stenoses L. Common iliac artery: Mild atherosclerotic calcification with no significant stenosis L. External iliac artery: Mild atherosclerotic calcification with mild multifocal stenosis L. Internal iliac artery: Mild atherosclerotic calcification with mild multifocal stenosis Right Lower Extremity: R. Common femoral artery: Postsurgical changes of open thrombectomy for previous complete occlusion of a femoral popliteal bypass graft. There is patent flow within the bypass. Short segment moderate-severe narrowing of the distal portion of the bypass (series 4 image 701). Right groin hematoma. Fluid and gas along the course of the bypass. R. Profunda femoris artery: Interval stenting of the right common femoral and proximal deep femoral arteries as well as proximal bypass graft which are patent. Mild multifocal stenosis throughout its course R. Superficial femoral artery: Occluded/bypassed R. Popliteal artery: Chronic occlusion proximally. Distal reconstitution of flow via the bypass. R. Anterior tibial artery: Possible thready flow within the right anterior tibial artery. Limited evaluation as there is early opacification of veins due to hyperemia. R. Tibioperoneal trunk: no significant stenosis R. Posterior tibial artery: no significant stenosis R. Peroneal artery: Diminutive size, nonopacified distally R. Dorsalis pedis artery: no significant stenosis R. Plantar artery: no significant stenosis Left Lower Extremity: L. Common femoral artery: no significant stenosis L. Profunda femoris artery: no significant stenosis L. Superficial femoral artery: Long segment occlusion, unchanged. The distal aspect is reconstituted by branches of the profunda femoris. L. Popliteal artery: no significant stenosis L. Anterior tibial artery: Thready flow proximally, without definite flow distally, unchanged. L. Tibioperoneal trunk: no significant stenosis L. Posterior tibial artery: no significant stenosis L. Peroneal artery: no significant stenosis L. Dorsalis pedis artery: no significant stenosis L. Plantar artery: no significant stenosis NON-VASCULAR FINDINGS: Mild bibasilar atelectasis. Cholecystectomy. Unchanged splenic infarct. Unchanged right kidney lower pole renal cyst and other lesions too small to characterize. Unchanged bilateral adrenal adenomas. Gas within the bladder, likely secondary to recent instrumentation. Uterus is surgically absent. No adnexal mass. Diverticulosis without diverticulitis. No bowel obstruction. No suspicious osseous lesions. 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 Vascular 3D images were generated on a dedicated workstation and also reviewed. COMPARISON: CTA dated 12/13/2024 FINDINGS: VASCULAR FINDINGS: Abdominal Aorta and Branches: Celiac axis: Unchanged occlusion of the celiac artery, with reconstitution of flow in the common hepatic artery supplied by branches of the inferior mesenteric artery. SMA: no significant stenosis TY: no significant stenosis Right renal vessels: no significant stenosis Left renal vessels: no significant stenosis Infrarenal aorta: no significant stenosis. No aneurysm. Pelvic Vessels: R. Common iliac artery: no significant stenosis R. External iliac artery: New thin dissection flap originating in the proximal and distal right external iliac artery (series 4, image 300 and 352). Moderate atherosclerotic calcification with multifocal up to mild stenoses. Interval placement of stent extending from the distal right external iliac artery to the common and deep femoral arteries and the proximal portion of the graft. R. Internal iliac artery: Multifocal mild to moderate stenoses L. Common iliac artery: Mild atherosclerotic calcification with no significant stenosis L. External iliac artery: Mild atherosclerotic calcification with mild multifocal stenosis L. Internal iliac artery: Mild atherosclerotic calcification with mild multifocal stenosis Right Lower Extremity: R. Common femoral artery: Postsurgical changes of open thrombectomy for previous complete occlusion of a femoral popliteal bypass graft. There is patent flow within the bypass. Short segment moderate-severe narrowing of the distal portion of the bypass (series 4 image 701). Right groin hematoma. Fluid and gas along the course of the bypass. R. Profunda femoris artery: Interval stenting of the right common femoral and proximal deep femoral arteries as well as proximal bypass graft which are patent. Mild multifocal stenosis throughout its course R. Superficial femoral artery: Occluded/bypassed R. Popliteal artery: Chronic occlusion proximally. Distal reconstitution of flow via the bypass. R. Anterior tibial artery: Possible thready flow within the right anterior tibial artery. Limited evaluation as there is early opacification of veins due to hyperemia. R. Tibioperoneal trunk: no significant stenosis R. Posterior tibial artery: no significant stenosis R. Peroneal artery: Diminutive size, nonopacified distally R. Dorsalis pedis artery: no significant stenosis R. Plantar artery: no significant stenosis Left Lower Extremity: L. Common femoral artery: no significant stenosis L. Profunda femoris artery: no significant stenosis L. Superficial femoral artery: Long segment occlusion, unchanged. The distal aspect is reconstituted by branches of the profunda femoris. L. Popliteal artery: no significant stenosis L. Anterior tibial artery: Thready flow proximally, without definite flow distally, unchanged. L. Tibioperoneal trunk: no significant stenosis L. Posterior tibial artery: no significant stenosis L. Peroneal artery: no significant stenosis L. Dorsalis pedis artery: no significant stenosis L. Plantar artery: no significant stenosis NON-VASCULAR FINDINGS: Mild bibasilar atelectasis. Cholecystectomy. Unchanged splenic infarct. Unchanged right kidney lower pole renal cyst and other lesions too small to characterize. Unchanged bilateral adrenal adenomas. Gas within the bladder, likely secondary to recent instrumentation. Uterus is surgically absent. No adnexal mass. Diverticulosis without diverticulitis. No bowel obstruction. No suspicious osseous lesions. IMPRESSION: 1. Postprocedural changes of open thrombectomy with interval patency of the common femoral to popliteal bypass graft with new short segment moderate to severe narrowing of the graft distally. This area of narrowing is more proximal to the previously seen area of narrowing in the distal graft when compared to CT dated 10/07/2024. There is unchanged predominantly 1 vessel runoff to the right ankle via the posterior tibial artery with possible thready flow in the anterior tibial artery, though evaluation is limited due to early opacification of adjacent veins in setting of hyperemia. 2. Interval stenting of the right common femoral and proximal deep femoral arteries as well as proximal bypass graft which are patent. 3. New dissection flap in the proximal and distal right external iliac artery. 4. 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 Dictated by: Linda Morillo MD The radiology attending physician has personally reviewed this study, and had reviewed and/or edited this written report and agrees with it. Electronically signed by: Romana Jolly M.D. April Villarreal ARCHITECTURAL DESIGN LECTURER IMG CT PROCEDURES Fin al Result * (ABNORMAL) aPTT (12/18/2024 6:02 AM CDT) [facility] aPTT 60(H) 28 - 38 sec Comment: Interpretive Data Heparin therapeutic range: 66.0 - 100.0 seconds. Range based on correlation with therapeutic heparin activity range of 0.3 - 0.7 Units/mL. Current interpretive data was last revised on 2023. Blood 12/18/2024 6:02 AM CDT 12/18/2024 6:16 AM CDT Narrative [facility] - 12/18/2024 6:39 AM CDT STAT PTT timing: - Draw 6 hours after heparin infusion initiation - Draw 6 hours after every dose change until 2 consecutive PTTs are therapeutic - Once 2 consecutive PTTs are therapeutic, obtain with daily labs until infusion is discontinued - - Restart every 6 hour lab draws and follow instructions accordingly if PTT is outside of therapeutic range Do not draw lab from IV line that is actively infusing heparin. Use the opposite arm. If arm with actively infusing heparin must be used, pause the infusion for at least 2 minutes, and draw specimen below the IV site. For patients with a central venous catheter (CVC), lab must be drawn peripherally (not from CVC). Bernardo Hull NP LAB BLOOD ORDERABLES Final Result [facility] Department [place] [address] * (ABNORMAL) eGFR (12/17/2024 8:22 PM CDT) [facility] eGFR 49(L) >=60 mL/min/1. 73 m2 Comment: Interpretive Data [...] interpretive data was last reviewed 2021. Blood 12/17/2024 8:22 PM CDT 12/17/2024 9:04 PM CDT us Claude Garza MD LAB BLOOD ORDERABLES Final Res ult [facility] [place] [address] * (ABNORMAL) aPTT (12/17/2024 8:22 PM CDT) aPTT 61(H) 28 - 38 sec Comment: No clot detected in sample - [id number] - 12/17/24, 9:23 PM Interpretive Data Heparin therapeutic range: 66.0 - 100.0 seconds. Range based on correlation with therapeutic heparin activity range of 0.3 - 0.7 Units/mL. Current interpretive data was last revised on 2023. Blood 12/17/2024 8:22 PM CDT 12/17/2024 9:03 PM CDT Narrative [facility] - 12/17/2024 9:24 PM CDT STAT PTT timing: - Draw 6 hours after heparin infusion initiation - Draw 6 hours after every dose change until 2 consecutive PTTs are therapeutic - Once 2 consecutive PTTs are therapeutic, obtain with daily labs until infusion is discontinued - - Restart every 6 hour lab draws and follow instructions accordingly if PTT is outside of therapeutic range Do not draw lab from IV line that is actively infusing heparin. Use the opposite arm. If arm with actively infusing heparin must be used, pause the infusion for at least 2 minutes, and draw specimen below the IV site. For patients with a central venous catheter (CVC), lab must be drawn peripherally (not from CVC). us Bernardo Hull NP LAB BLOOD ORDERABLES Final Result Performing Organization Address [facility]/ZIP Co de Phone Number [facility] Department [place] [address] * (ABNORMAL) CBC without differential (12/17/2024 8:22 PM CDT) Pathologist [facility] WBC 19.5(H) 3.8 - 9.9 K/cumm Hgb 10.4(L) 11.9 - 15.5 g/dL [facility] Hct 33.7(L) 35.6 - 45.5 % [facility] Plt 245 150 - 400 K/cumm [facility] MPV 11.1 9.1 - 12.3 fL [facility] RBC 3.92 3.90 - 5.20 M/cumm [facility] MCV 86.0 81.3 - 96.4 fL [facility] MCH 26.5(L) 27.1 - 33.3 pg [facility] MCHC 30.9(L) 32.3 - 35.7 g/dL [facility] RDW CV Not Measured 11.1 - 14.9 % [facility] RDW SD Not Measured 35.7 - 48.1 fL [facility] NRBC abs 0.00 0.00 - 0.01 K/cumm [facility] Blood 12/17/2024 8:22 PM CDT 12/17/2024 9:04 PM CDT us Claude Garza MD LAB BLOOD ORDERABLES Final Res ult [facility] Department [place] [address] * Phosphorus (12/17/2024 8:22 PM CDT) Pathologist [facility] Phosphorus, pl 3.9 2.3 - 4.5 mg/dL Blood 12/17/2024 8:22 PM CDT 12/17/2024 9:04 PM CDT Claude Garza MD LAB BLOOD ORDERABLES Final Res ult Performing Organization Address [facility] Co de Phone Number [facility] [place] [address] * Magnesium (12/17/2024 8:22 PM CDT) Pathologist [facility] Magnesium 1.5 1.4 - 2.5 mg/dL Blood 12/17/2024 8:22 PM CDT 12/17/2024 9:04 PM CDT Claude Garza MD LAB BLOOD ORDERABLES Final Res ult Performing Organization Address [facility] [place] [address] * Hemoglobin A1c (12/17/2024 8:22 PM CDT) Hgb A1C 4.5 4.0 - 5.6 % Estimated Average Glucose 82 mg/dL [facility] Comment: The ADA recommends reporting an estimated Average Glucose (eAG) with all Hemoglobin A1c results using the equation derived from a study of 507 normal and diabetic adults. Minority populations were underrepresented and children were not included. (Diabetes Care 2020; 43(S1): S66-S76). The eAG is not equivalent to a fasting glucose. Blood 12/17/2024 8:22 PM CDT 12/17/2024 9:07 PM CDT Claude Garza MD LAB BLOOD ORDERABLES Final Res ult Performing Organization Address [facility] Co de Phone Number [facility] [place] [address] * (ABNORMAL) Basic metabolic panel (12/17/2024 8:22 PM CDT) Sodium 148(H) 135 - 145 mmol/L Potassium, pl 3.7 3.3 - 4.9 mmol/L [facility] Chloride 111(H) 97 - 110 mmol/L [facility] CO2 26 22 - 32 mmol/L [facility] Anion gap 11 2 - 15 mmol/L [facility] BUN 18 6 - 25 mg/dL [facility] Creatinine 1.32(H) 0.60 - 1.10 mg/dL [facility] Glucose 94 70 - 199 mg/dL [facility] Comment: Interpretive Data Fasting glucose >/= 126 [...] classification and Diagnosis of Diabetes Diabetes Care 202; 46: S19-S40. Current interpretive data was last revised 2022. Calcium 8.6 8.5 - 10.3 mg/dL [facility] Blood 12/17/2024 8:22 PM CDT 12/17/2024 9:04 PM CDT us Claude Garza MD LAB BLOOD ORDERABLES Final Res ult [facility] Department [place] [address] * (ABNORMAL) aPTT (12/17/2024 1:00 PM CDT) aPTT 46(H) 28 - 38 sec Comment: Interpretive Data Heparin therapeutic range: 66.0 - 100.0 seconds. Range based on correlation with therapeutic heparin activity range of 0.3 - 0.7 Units/mL. Current interpretive data was last revised on 2023. Blood 12/17/2024 1:00 PM CDT 12/17/2024 1:26 PM CDT Daniele [facility] - 12/17/2024 1:48 PM CDT STAT PTT timing: - Draw 6 hours after heparin infusion initiation - Draw 6 hours after every dose change until 2 consecutive PTTs are therapeutic - Once 2 consecutive PTTs are therapeutic, obtain with daily labs until infusion is discontinued - - Restart every 6 hour lab draws and follow instructions accordingly if PTT is outside of therapeutic range Do not draw lab from IV line that is actively infusing heparin. Use the opposite arm. If arm with actively infusing heparin must be used, pause the infusion for at least 2 minutes, and draw specimen below the IV site. For patients with a central venous catheter (CVC), lab must be drawn peripherally (not from CVC). us Claude Garza MD LAB BLOOD ORDERABLES Final Res ult [facility] [place] [address] * US Arterial Duplex Lower Extremity Right Limited (12/17/2024 12:20 PM CDT) Anatomical Region Laterality Modality Vascular Right Ultrasound 12/17/2024 10:2 9 AM CDT Narrative 12/17/2024 7:12 PM CDT [facility] - Department of Vascular Surgery, Vascular Laboratory [address] [place] [address] [place] Lower Extremity Arterial Duplex Report Patient Name: JEFFERY HAMILTON ANN : 1970 Study Date: 12/17/2024 10:29:11 AM Gender: F Tech: PETER/CARLOS Location: [id number] Ref Provider: BERNARDO HULL Quality: Adequate Order Provider: BERNARDO HULL PROCEDURES: Arterial Report: Right Lower Extremity Arterial Duplex Exam. INDICATIONS: Presence of Vascular Implants and Grafts - MEASUREMENTS: Right Value Units Rt Distal External Iliac 82 cm/s Rt DROP WIRER Dst PSV 142 cm/s Rt Common Femoral Artery At Stenosis 142 cm/s Rt Profunda Prx PSV 98 cm/s Rt Superficial Femoral Prx PSV 59 cm/s Rt Superficial Femoral Mid PSV 0 cm/s Rt Superficial Femoral Dst PSV 0 cm/s Rt Pop Dst PSV 48 cm/s Rt Post Tibial Prx PSV 84 cm/s Rt Post Tibial Mid PSV 89 cm/s Rt Post Tibial Dst PSV 95 cm/s Rt Peroneal Prx PSV 0 cm/s Rt Peroneal Mid PSV 0 cm/s Rt Peroneal Dst PSV 16 cm/s Rt Dorsalis Pedis Artery 21 cm/s Rt Proximal Stent 84 cm/s Rt Mid Stent 78 cm/s Rt Distal Stent 48 cm/s Right Value Units FINDINGS: Performing Watermelon Inspector: Shey Dorman RDMS, RVT. Right Distal External Iliac: The right distal external iliac waveform is monophasic. Right Common Femoral: The right common femoral artery waveform is monophasic with preserved sharp upstroke. Known occlusion with acute and chronic thrombus found on CTA and during surgery yesterday. Right Profunda: The right profunda waveform is monophasic. Right Proximal Superficial Femoral Artery: The right femoral artery waveform is monophasic proximally and absent at the mid and distal portion. Right Popliteal: The right popliteal waveform is monophasic. Right Posterior Tibial: The right posterior tibial waveform is monophasic. Right Anterior Tibial: The right anterior tibial waveform is monophasic. Right Peroneal: The right peroneal artery waveform is absent at the proximal and mid portion with reconstitution at the distal portion. Right Dorsalis Pedis: The right dorsalis pedis artery waveform is monophasic. Comments: The fem-pop BPG is patent with monophasic waveforms. BPG Inflow: 61cm/s BPG Prox Anast: 61cm/s BPG Prox: 51cm/51cm/s BPG Mid: 140cm/s BPG Dist: 36cm/s BPG Dist Anast: 45cm/s BPG Outflow: 50cm/s. CONCLUSIONS: 1. The right common femoral artery waveform is monophasic with preserved sharp upstroke. Known occlusion with acute and chronic thrombus found on CTA and during surgery yesterday. 2. Patent right DROP WIRER artery stent. 3. Patent right fem-pop bypass graft. HISTORY: Arterial occlusion Hypertension DVT (deep venous thrombosis) ([facility]) Critical limb ischemia of right lower extremity ([facility]) 12/16/2024: FEMORAL EMBOLECTOMY/THROMBECTOMY- suction thrombectomy with Penumbra and RLE angiogram (Right) Open thrombectomy of right leg saphenous vein bypass graft and profunda femoral artery. Angioplasty Balloon/Stent Placement- stenting of right common, profunda femoral artery and right bypass graft (Right) with 5 Inova stents - PREVIOUS STUDIES: Previous study on 11/27/2024 (1. Patent right lower extremity bypass graft with a >75% stenosis at the distal graft level). - DISCLAIMER: The study images and the final [...] that is provided above. Electronically Signed By: Claude Garza MD [facility] [phone] 12/17/2024 7:04:32 PM CDT Procedure Note Claude Garza MD - 12/17/2024 [facility] - Department of Vascular Surgery,Vascular Laboratory [address] [place] [address] [place] Lower Extremity Arterial Duplex Report Patient Name: JEFFERY HAMILTON ANN : 1970 Study Date: 12/17/2024 10:29:11 AM Gender: F Tech: PETER/CARLOS Location: [id number] Ref Provider: BERNARDO HULL Quality: Adequate Order Provider: BERNARDO HULL PROCEDURES: Arterial Report: Right Lower Extremity Arterial Duplex Exam. INDICATIONS: Presence of Vascular Implants and Grafts - MEASUREMENTS: Right Value Units Rt Distal External Iliac 82 cm/s Rt DROP WIRER Dst PSV 142 cm/s Rt Common Femoral Artery At Stenosis 142 cm/s Rt Profunda Prx PSV 98 cm/s Rt Superficial Femoral Prx PSV 59 cm/s Rt Superficial Femoral Mid PSV 0 cm/s Rt Superficial Femoral Dst PSV 0 cm/s Rt Pop Dst PSV 48 cm/s Rt Post Tibial Prx PSV 84 cm/s Rt Post Tibial Mid PSV 89 cm/s Rt Post Tibial Dst PSV 95 cm/s Rt Peroneal Prx PSV 0 cm/s Rt Peroneal Mid PSV 0 cm/s Rt Peroneal Dst PSV 16 cm/s Rt Dorsalis Pedis Artery 21 cm/s Rt Proximal Stent 84 cm/s Rt Mid Stent 78 cm/s Rt Distal Stent 48 cm/s Right Value Units FINDINGS: Performing Watermelon Inspector: Shey Dorman RDMS, RVT. Right Distal External Iliac: The right distal external iliac waveform is monophasic. Right Common Femoral: The right common femoral artery waveform is monophasic with preservedsharp upstroke. Known occlusion with acute and chronic thrombus found on CTA and duringsurgery yesterday. Right Profunda: The right profunda waveform is monophasic. Right Proximal Superficial Femoral Artery: The right femoral artery waveform is monophasic proximally and absent atthe mid and distal portion. Right Popliteal: The right popliteal waveform is monophasic. Right Posterior Tibial: The right posterior tibial waveform is monophasic. Right Anterior Tibial: The right anterior tibial waveform is monophasic. Right Peroneal: The right peroneal artery waveform is absent at the proximal and midportion with reconstitution at the distal portion. Right Dorsalis Pedis: The right dorsalis pedis artery waveform is monophasic. Comments: The fem-pop BPG is patent with monophasic waveforms. BPG Inflow: 61cm/s BPG Prox Anast: 61cm/s BPG Prox: 51cm/51cm/s BPG Mid: 140cm/s BPG Dist: 36cm/s BPG Dist Anast: 45cm/s BPG Outflow: 50cm/s. CONCLUSIONS: 1. The right common femoral artery waveform is monophasic with preservedsharp upstroke. Known occlusion with acute and chronic thrombus found on CTA and duringsurgery yesterday. 2. Patent right DROP WIRER artery stent. 3. Patent right fem-pop bypass graft. HISTORY: Arterial occlusion Hypertension DVT (deep venous thrombosis) ([facility]) Critical limb ischemia of right lower extremity ([facility]) 12/16/2024: FEMORAL EMBOLECTOMY/THROMBECTOMY- suction thrombectomy withPenumbra and RLE angiogram (Right) Open thrombectomy of right leg saphenous vein bypass graft and profundafemoral artery. Angioplasty Balloon/Stent Placement- stenting of right common, profundafemoral artery and right bypass graft (Right) with 5 Inova stents - PREVIOUS STUDIES: Previous study on 11/27/2024 (1. Patent right lower extremity bypass graftwith a >75% stenosis at the distal graft level). - DISCLAIMER: The study images and the final report will be retained in the patientchart by the Vascular Laboratory for the legally required time period. This chartconstitutes the legal record of any testing performed. ATTESTATION: I have reviewed and interpreted the pertinent images and measurements ofthis study. I attest to the conclusions in the final report that is provided above. Electronically Signed By: Claude Garza MD [facility] [phone] 12/17/2024 7:04:32 PM CDT us Bernardo CoombsGenaro Hull ARCHITECTURAL DESIGN LECTURER IMG US PROCEDURES Final Res ult * (ABNORMAL) aPTT (12/17/2024 5:30 AM CDT) aPTT 49(H) 28 - 38 sec Comment: Interpretive Data Heparin therapeutic range: 66.0 - 100.0 seconds. Range based on correlation with therapeutic heparin activity range of 0.3 - 0.7 Units/mL. Current interpretive data was last revised on 2023. Blood 12/17/2024 5:30 AM CDT 12/17/2024 5:58 AM CDT Narrative [facility] - 12/17/2024 6:07 AM CDT STAT PTT timing: - Draw 6 hours after heparin infusion initiation - Draw 6 hours after every dose change until 2 consecutive PTTs are therapeutic - Once 2 consecutive PTTs are therapeutic, obtain with daily labs until infusion is discontinued - - Restart every 6 hour lab draws and follow instructions accordingly if PTT is outside of therapeutic range Do not draw lab from IV line that is actively infusing heparin. Use the opposite arm. If arm with actively infusing heparin must be used, pause the infusion for at least 2 minutes, and draw specimen below the IV site. For patients with a central venous catheter (CVC), lab must be drawn peripherally (not from CVC). us Claude Garza MD LAB BLOOD ORDERABLES Final Res ult [facility] Department [place] [address] * eGFR (12/16/2024 10:52 PM CDT) eGFR 64 >=60 mL/min/1. 73 m2 Comment: Interpretive Data [...] interpretive data was last reviewed 2021. Blood 12/16/2024 10:5 2 PM CDT 12/17/2024 12:30 AM CDT us Claude Garza MD LAB BLOOD ORDERABLES Final Res ult [facility] One [facility] Department [place] [address] * (ABNORMAL) CBC without differential (12/16/2024 10:52 PM CDT) WBC 18.2(H) 3.8 - 9.9 K/cumm Hgb 12.1 11.9 - 15.5 g/dL [facility] Hct 39.8 35.6 - 45.5 % [facility] Plt 239 150 - 400 K/cumm [facility] MPV 10.6 9.1 - 12.3 fL [facility] RBC 4.55 3.90 - 5.20 M/cumm [facility] MCV 87.5 81.3 - 96.4 fL [facility] MCH 26.6(L) 27.1 - 33.3 pg [facility] MCHC 30.4(L) 32.3 - 35.7 g/dL [facility] RDW CV Not Measured 11.1 - 14.9 % [facility] RDW SD Not Measured 35.7 - 48.1 fL [facility] NRBC abs 0.00 0.00 - 0.01 K/cumm [facility] Blood 12/16/2024 10:5 2 PM CDT 12/17/2024 12:31 AM CDT Claude Garza MD LAB BLOOD ORDERABLES Final Res ult Performing Organization Address City/[facility]/ZIP Co de Phone Number [facility] Department [place] [address] * (ABNORMAL) CBC without differential (12/16/2024 10:52 PM CDT) WBC 18.1(H) 3.8 - 9.9 K/cumm Hgb 12.2 11.9 - 15.5 g/dL [facility] Hct 40.2 35.6 - 45.5 % [facility] Plt 245 150 - 400 K/cumm [facility] MPV 10.8 9.1 - 12.3 fL [facility] RBC 4.60 3.90 - 5.20 M/cumm [facility] MCV 87.4 81.3 - 96.4 fL [facility] MCH 26.5(L) 27.1 - 33.3 pg [facility] MCHC 30.3(L) 32.3 - 35.7 g/dL [facility] RDW CV Not Measured 11.1 - 14.9 % [facility] RDW SD Not Measured 35.7 - 48.1 fL [facility] NRBC abs 0.00 0.00 - 0.01 K/cumm [facility] Blood 12/16/2024 10:5 2 PM CDT 12/17/2024 12:31 AM CDT Narrative [facility] - 12/17/2024 12:40 AM CDT While on heparin infusion Claude Garza MD LAB BLOOD ORDERABLES Final Res ult [facility] Department [place] [address] * (ABNORMAL) Phosphorus (12/16/2024 10:52 PM CDT) [facility] Phosphorus, pl 5.3(H) 2.3 - 4.5 mg/dL Blood 12/16/2024 10:5 2 PM CDT 12/17/2024 12:30 AM CDT Claude Garza MD LAB BLOOD ORDERABLES Final Res ult Performing Organization Address [facility] [place] [address] * Magnesium (12/16/2024 10:52 PM CDT) [facility] Magnesium 1.6 1.4 - 2.5 mg/dL Blood 12/16/2024 10:5 2 PM CDT 12/17/2024 12:30 AM CDT Claude Garza MD LAB BLOOD ORDERABLES Final Res ult Performing Organization Address [facility] [place] [address] * Basic metabolic panel (12/16/2024 10:52 PM CDT) [facility] Sodium 144 135 - 145 mmol/L Potassium, pl 4.3 3.3 - 4.9 mmol/L [facility] Chloride 109 97 - 110 mmol/L [facility] CO2 24 22 - 32 mmol/L [facility] Anion gap 11 2 - 15 mmol/L [facility] BUN 16 6 - 25 mg/dL [facility] Creatinine 1.05 0.60 - 1.10 mg/dL [facility] Glucose 143 70 - 199 mg/dL [facility] Comment: Interpretive Data Fasting glucose >/= 126 [...] interpretive data was last revised 2022. Calcium 8.8 8.5 - 10.3 mg/dL [facility] Blood 12/16/2024 10:5 2 PM CDT 12/17/2024 12:30 AM CDT us Claude Garza MD LAB BLOOD ORDERABLES Final Res ult [facility] Department [place] [address] * eGFR (12/16/2024 7:42 PM CDT) eGFR 64 >=60 mL/min/1. 73 m2 Comment: Interpretive Data [...] interpretive data was last reviewed 2021. Blood 12/16/2024 7:42 PM CDT 12/16/2024 7:55 PM CDT us Claude Garza MD LAB BLOOD ORDERABLES Final Res ult Performing Organization Address [facility] Co de Phone Number [facility] [place] [address] * (ABNORMAL) CBC without differential (12/16/2024 7:42 PM CDT) Pathologist [facility] WBC 17.3(H) 3.8 - 9.9 K/cumm Hgb 12.0 11.9 - 15.5 g/dL [facility] Hct 39.0 35.6 - 45.5 % [facility] Plt 269 150 - 400 K/cumm [facility] MPV 10.6 9.1 - 12.3 fL [facility] RBC 4.53 3.90 - 5.20 M/cumm [facility] MCV 86.1 81.3 - 96.4 fL [facility] MCH 26.5(L) 27.1 - 33.3 pg [facility] MCHC 30.8(L) 32.3 - 35.7 g/dL [facility] RDW CV Not Measured 11.1 - 14.9 % [facility] RDW SD Not Measured 35.7 - 48.1 fL [facility] NRBC abs 0.00 0.00 - 0.01 K/cumm [facility] Blood 12/16/2024 7:42 PM CDT 12/16/2024 7:55 PM CDT Claude Garza MD LAB BLOOD ORDERABLES Final Res ult Performing Organization Address [facility] Co de Phone Number [facility] Department [place] [address] * (ABNORMAL) Phosphorus (12/16/2024 7:42 PM CDT) Pathologist [facility] Phosphorus, pl 5.0(H) 2.3 - 4.5 mg/dL Blood 12/16/2024 7:42 PM CDT 12/16/2024 7:55 PM CDT Claude Garza MD LAB BLOOD ORDERABLES Final Res ult [facility] One [facility] Department [place] [address] * Magnesium (12/16/2024 7:42 PM CDT) Pathologist [facility] Magnesium 1.6 1.4 - 2.5 mg/dL Blood 12/16/2024 7:42 PM CDT 12/16/2024 7:55 PM CDT Claude Garza MD LAB BLOOD ORDERABLES Final Res ult Performing Organization Address [facility] de Phone Number [facility] Department [place] [address] * (ABNORMAL) Basic metabolic panel (12/16/2024 7:42 PM CDT) Pathologist [facility] Sodium 146(H) 135 - 145 mmol/L Potassium, pl 4.1 3.3 - 4.9 mmol/L [facility] Chloride 110 97 - 110 mmol/L [facility] CO2 24 22 - 32 mmol/L [facility] Anion gap 12 2 - 15 mmol/L [facility] BUN 16 6 - 25 mg/dL [facility] Creatinine 1.05 0.60 - 1.10 mg/dL [facility] Glucose 129 70 - 199 mg/dL [facility] Comment: Interpretive Data Fasting glucose >/= 126 [...] interpretive data was last revised 2022. Calcium 8.7 8.5 - 10.3 mg/dL [facility] Blood 12/16/2024 7:42 PM CDT 12/16/2024 7:55 PM CDT us Claude Garza MD LAB BLOOD ORDERABLES Final Res ult Performing Organization Address [facility]/ZIP Co de Phone Number [facility] Department [place] [address] * FEMORAL EMBOLECTOMY/THROMBECTOMY, ANGIOGRAM (12/16/2024 7:29 PM CDT) Anatomical Region Laterality Modality X-Ray Angiograph y Narrative 12/17/2024 9:11 AM CDT Please see OpNote for result. us Claude Garza MD SURGICAL CASE ORDERS Final Res ult * THROMBECTOMY, ANGIOPLASTY BALLOON/STENT PLACEMENT, BYPASS GRAFT - FEMORAL LOWER EXT [id number] (12/16/2024 7:29 PM CDT) Anatomical Region Laterality Modality X-Ray Angiograph y Narrative 12/17/2024 9:11 AM CDT Please see OpNote for result. us Claude Garza MD CV CARDIAC CATH PROCEDURES Fin al Result * FL Fluoroscopy < 1 Hour (12/16/2024 7:13 PM CDT) Narrative [id number] - 12/16/2024 7:14 PM CDT The images from this study are not interpreted by Radiology. Please refer to the physician's procedure / OR operative note. us Claude Garza MD IMG FLUOROSCOPY PROCEDURES Fin al Result Performing Organization Address City/[facility]/ZIP Co de Phone Number [email or web address] * POCT Activated clotting time, low range (12/16/2024 6:47 PM CDT) ACT 124 123 - 168 sec POC Performer [id number] [facility] POC Device Number [id number] [facility] Blood 12/16/2024 6:47 PM CDT 12/16/2024 6:47 PM CDT us Claude Garza MD LAB POCT ORDERABLES - DEVICE F inal Result Performing Organization Address City/[facility]/ZIP Co de Phone Number [facility] Department [place] [address] * (ABNORMAL) POC Blood Gas and Chemistries, Arterial - (12/16/2024 6:23 PM CDT) Pathologist [facility] pH, Art POC 7.40 7.35 - 7.45 pCO2, Art POC 43 35 - 45 mmHg [facility] pO2, Art POC 139(H) 83 - 108 mmHg [facility] Na, POC 143 135 - 145 mmol/L [facility] K POC 3.8 3.3 - 4.9 mmol/L [facility] Comment: Interpretive Data Not all point of care methods assess for hemolysis. Confirm with instrument and retest K+ if not consistent with clinical signs and symptoms. Current Interpretive Data was last revised on 2024. Cl, POC 112(H) 97 - 110 mmol/L [facility] Ionized Ca, POC 4.75 4.50 - 5.10 mg/dL [facility] Glucose, POC 123 70 - 199 mg/dL [facility] Lactate, POC 1.1 0.7 - 2.0 mmol/L [facility] SO2 (pedrito) arterial 100(H) 90 - 95 % [facility] Base excess, POC 1.5 mmol/L [facility] HCO3, Art POC 26 20 - 30 mmol/L [facility] Hct, POC 37.0 36.3 - 45.3 % [facility] Total Hb, POC 12.2 11.9 - 15.5 g/dL [facility] Blood 12/16/2024 6:23 PM CDT 12/16/2024 6:23 PM CDT Claude Garza MD LAB POCT ORDERABLES - DEVICE F inal Result Performing Organization Address City/[facility]/ZIP Co de Phone Number [facility] Department [place] [address] * (ABNORMAL) POCT Activated clotting time, low range (12/16/2024 6:08 PM CDT) ACT 232(H) 123 - 168 sec POC Performer [id number] [facility] POC Device Number [id number] [facility] Blood 12/16/2024 6:08 PM CDT 12/16/2024 6:08 PM CDT Claude Garza MD LAB POCT ORDERABLES - DEVICE F inal Result Performing Organization Address City/[facility]/ZIP Co de Phone Number [facility] [place] [address] * (ABNORMAL) POCT Activated clotting time, low range (12/16/2024 5:39 PM CDT) ACT 192(H) 123 - 168 sec POC Performer [id number] [facility] POC Device Number [id number] [facility] Blood 12/16/2024 5:39 PM CDT 12/16/2024 5:39 PM CDT us Claude Garza MD LAB POCT ORDERABLES - DEVICE F inal Result [facility] [place] [address] * (ABNORMAL) POCT Activated clotting time, low range (12/16/2024 5:03 PM CDT) ACT 253(H) 123 - 168 sec POC Performer [id number] [facility] POC Device Number [id number] [facility] Blood 12/16/2024 5:03 PM CDT 12/16/2024 5:03 PM CDT Claude Garza MD LAB POCT ORDERABLES - DEVICE F inal Result Performing Organization Address [facility] de Phone Number [facility] [place] [address] * (ABNORMAL) POCT Activated clotting time, low range (12/16/2024 4:28 PM CDT) ACT 229(H) 123 - 168 sec POC Performer [id number] [facility] POC Device Number [id number] [facility] Blood 12/16/2024 4:28 PM CDT 12/16/2024 4:28 PM CDT us Claude Garza MD LAB POCT ORDERABLES - DEVICE F inal Result Performing Organization Address [facility] [place] [address] * (ABNORMAL) POCT Activated clotting time, low range (12/16/2024 3:56 PM CDT) ACT 253(H) 123 - 168 sec POC Performer [id number] [facility] POC Device Number [id number] [facility] Blood 12/16/2024 3:56 PM CDT 12/16/2024 3:56 PM CDT us Claude Garza MD LAB POCT ORDERABLES - DEVICE F inal Result Performing Organization Address [facility] de Phone Number [facility] [place] [address] * (ABNORMAL) POCT Activated clotting time, low range (12/16/2024 3:26 PM CDT) ACT 245(H) 123 - 168 sec POC Performer [id number] [facility] POC Device Number [id number] [facility] Blood 12/16/2024 3:26 PM CDT 12/16/2024 3:26 PM CDT Claude Garza MD LAB POCT ORDERABLES - DEVICE F inal Result Performing Organization Address [facility] Co de Phone Number [facility] [place] [employer] [place] [address] * (ABNORMAL) POCT Activated clotting time, low range (12/16/2024 3:03 PM CDT) ACT 253(H) 123 - 168 sec POC Performer [id number] [facility] POC Device Number [id number] [facility] Blood 12/16/2024 3:03 PM CDT 12/16/2024 3:03 PM CDT Claude Garza MD LAB POCT ORDERABLES - DEVICE F inal Result Performing Organization Address [facility] de Phone Number [facility] [place] [address] * POCT Activated clotting time, low range (12/16/2024 1:59 PM CDT) ACT 144 123 - 168 sec POC Performer [id number] [facility] POC Device Number [id number] [facility] Blood 12/16/2024 1:59 PM CDT 12/16/2024 1:59 PM CDT Claude Garza MD LAB POCT ORDERABLES - DEVICE F inal Result Performing Organization Address [facility] de Phone Number [facility] [place] [place] [address] * NC AN PROCEDURE PLACEHOLDER (12/16/2024 1:53 PM CDT) Narrative William Campos CRNA - 12/16/2024 1:53 PM CDT William Campos CRNA 12/16/2024 1:53 PM Arterial Line Patient location: OR Indication: continuous blood pressure monitoring and blood sampling needed Staff: Placed by: CHRISTIAN: Jeanne Baker CRNA Procedure prep: Prep solution: chlorhexadine/alcohol Prep: sterile gloves and provider hat/mask Arterial line: Catheter size: 20 gauge Catheter length: 1 and 3/4 inch Catheter type: wire-guided catheter Seldinger technique: yes Laterality: right Site: radial artery Line secured: Tegaderm Results: good waveform and good blood return Number of attempts: 1 Assessment: Events: patient tolerated procedure well with no complications Naman Magaña MD ANESTHESIA ORDERABLES Kelsea l Result * NC AN PROCEDURE PLACEHOLDER (12/16/2024 1:51 PM CDT) William Wood CRNA - 12/16/2024 1:51 PM CDT William Campos CRNA 12/16/2024 1:51 PM Peripheral IV Catheter Patient location: OR Staff: Placed by: IOS SOFTWARE ENGINEER: William Campos CRNA Preprocedure prep: Prep solution: chlorhexadine PPE: gloves and provider hat/mask PIV line: Laterality: left Site: wrist Catheter size: 18 g Technique: anatomical landmarks and direct visualization Procedure details: good blood return and occlusive dressing applied Number of attempts: 1 Assessment: Events: patient tolerated procedure well with no complications Naman Magaña MD ANESTHESIA ORDERABLES Kelsea l Result * NC AN ELECTIVE ENDOTRACHEAL AIRWAY, NC AN PROCEDURE PLACEHOLDER (12/16/2024 1:50 PM CDT) William Wood CRNA - 12/16/2024 1:50 PM CDT William Campos CRNA 12/16/2024 1:50 PM Airway Patient location: OR Urgency: elective Indications for airway management: anesthesia and airway protection Difficult airway: no Staff: Placed by: IOS SOFTWARE ENGINEER: Jeanne Baker CRNA Emergent airway documentation: Risks and benefits discussed: yes Consent obtained: yes Consent given by: patient Airway prep: Preoxygenated: yes Mask difficulty assessment: 1 - vent by mask Spontaneous ventilation during airway: absent Sedation level during airway: GA Final airway details: Final airway type: endotracheal airway Tube type: ETT ETT size: 7.0 mm Cuffed: yes Technique used for successful ETT placement: video laryngoscopy Devices/Methods used in placement: intubating stylet Insertion site: oral Blade type: Reshma Video blade type: Finn Blade size: 3 Cormack-Lehane (video): grade I - full view of glottis Cuff volume: 8 mL Cuff inflated with: air ETT to lips: 23 cm Placement verified by: auscultation and CO2 detection Airway secured with: silk tape Number of attempts: 1 Additional comments: Dentition as in pre-op us Naman Magaña MD ANESTHESIA ORDERABLES Kelsea l Result * Type and screen (12/16/2024 9:44 AM CDT) Ella, indirect Negative ABO Rh A Positive [facility] Blood 12/16/2024 9:44 AM CDT 12/16/2024 11:57 AM CDT Narrative [facility] - 12/16/2024 1:09 PM CDT Has the patient had Daratumumab or Isatuximab in the past 6 months?->Unknown us Claude Garza MD LAB BLOOD BANK TEST ORDERABLES Final Result [facility] [place] [address] * eGFR (12/15/2024 10:39 PM CDT) eGFR 61 >=60 mL/min/1. 73 m2 Comment: Interpretive Data [...] interpretive data was last reviewed 2021. Blood 12/15/2024 10:3 9 PM CDT 12/15/2024 10:57 PM CDT Claude Garza MD LAB BLOOD ORDERABLES Final Res ult Performing Organization Address [facility] Co de Phone Number [facility] [place] [address] * (ABNORMAL) aPTT (12/15/2024 10:39 PM CDT) [facility] aPTT 90(H) 28 - 38 sec Comment: Interpretive Data Heparin therapeutic range: 66.0 - 100.0 seconds. Range based on correlation with therapeutic heparin activity range of 0.3 - 0.7 Units/mL. Current interpretive data was last revised on 2023. Blood 12/15/2024 10:3 9 PM CDT 12/15/2024 10:57 PM CDT Narrative [facility] - 12/15/2024 11:27 PM CDT STAT PTT timing: - Draw 6 hours after heparin infusion initiation - Draw 6 hours after every dose change until 2 consecutive PTTs are therapeutic - Once 2 consecutive PTTs are therapeutic, obtain with daily labs until infusion is discontinued - - Restart every 6 hour lab draws and follow instructions accordingly if PTT is outside of therapeutic range Do not draw lab from IV line that is actively infusing heparin. Use the opposite arm. If arm with actively infusing heparin must be used, pause the infusion for at least 2 minutes, and draw specimen below the IV site. For patients with a central venous catheter (CVC), lab must be drawn peripherally (not from CVC). Claude Garza MD LAB BLOOD ORDERABLES Final Res ult Performing Organization Address [facility]/ZIP Co de Phone Number [facility] [place] [address] * (ABNORMAL) CBC without differential (12/15/2024 10:39 PM CDT) [facility] WBC 12.2(H) 3.8 - 9.9 K/cumm Hgb 12.9 11.9 - 15.5 g/dL [facility] Hct 41.7 35.6 - 45.5 % [facility] Plt 267 150 - 400 K/cumm [facility] MPV 10.4 9.1 - 12.3 fL [facility] RBC 4.79 3.90 - 5.20 M/cumm [facility] MCV 87.1 81.3 - 96.4 fL [facility] MCH 26.9(L) 27.1 - 33.3 pg [facility] MCHC 30.9(L) 32.3 - 35.7 g/dL [facility] RDW CV Not Measured 11.1 - 14.9 % [facility] RDW SD Not Measured 35.7 - 48.1 fL [facility] NRBC abs 0.00 0.00 - 0.01 K/cumm [facility] Blood 12/15/2024 10:3 9 PM CDT 12/15/2024 10:58 PM CDT Claude Garza MD LAB BLOOD ORDERABLES Final Res ult Performing Organization Address City/[facility] Co de Phone Number [facility] [place] [address] * Phosphorus (12/15/2024 10:39 PM CDT) [facility] Phosphorus, pl 3.4 2.3 - 4.5 mg/dL Blood 12/15/2024 10:3 9 PM CDT 12/15/2024 10:57 PM CDT Cladue Garza MD LAB BLOOD ORDERABLES Final Res ult Performing Organization Address City/[facility]/ZIP Co de Phone Number [facility] [place] [address] * Magnesium (12/15/2024 10:39 PM CDT) Pathologist [facility] Magnesium 1.9 1.4 - 2.5 mg/dL Blood 12/15/2024 10:3 9 PM CDT 12/15/2024 10:57 PM CDT us Claude Garza MD LAB BLOOD ORDERABLES Final Res ult [facility] One [facility] [place] [address] * Basic metabolic panel (12/15/2024 10:39 PM CDT) Pathologist [facility] Sodium 143 135 - 145 mmol/L Potassium, pl 4.0 3.3 - 4.9 mmol/L [facility] Comment:Hemolyzed; Potassium value may be falsely elevated by as much as 0.3-0.5 mmol/L. Suggest redraw and reanalysis. Chloride 108 97 - 110 mmol/L [facility] CO2 24 22 - 32 mmol/L [facility] Anion gap 11 2 - 15 mmol/L [facility] BUN 21 6 - 25 mg/dL [facility] Creatinine 1.09 0.60 - 1.10 mg/dL [facility] Glucose 128 70 - 199 mg/dL [facility] Comment: Interpretive Data Fasting glucose >/= 126 [...] classification and Diagnosis of Diabetes Diabetes Care 202; 46: S19-S40. Current interpretive data was last revised 2022. Calcium 9.3 8.5 - 10.3 mg/dL [facility] Blood 12/15/2024 10:3 9 PM CDT 12/15/2024 10:57 PM CDT us Claude Garza MD LAB BLOOD ORDERABLES Final Res ult Performing Organization Address [facility]/ZIP Co de Phone Number [facility] [place] [address] * (ABNORMAL) aPTT (12/15/2024 6:48 AM CDT) Department Of [facility] aPTT 84(H) 28 - 38 sec Comment: Interpretive Data Heparin therapeutic range: 66.0 - 100.0 seconds. Range based on correlation with therapeutic heparin activity range of 0.3 - 0.7 Units/mL. Current interpretive data was last revised on 2023. Blood 12/15/2024 6:48 AM CDT 12/15/2024 7:16 AM CDT Narrative [facility] - 12/15/2024 7:38 AM CDT STAT PTT timing: - Draw 6 hours after heparin infusion initiation - Draw 6 hours after every dose change until 2 consecutive PTTs are therapeutic - Once 2 consecutive PTTs are therapeutic, obtain with daily labs until infusion is discontinued - - Restart every 6 hour lab draws and follow instructions accordingly if PTT is outside of therapeutic range Do not draw lab from IV line that is actively infusing heparin. Use the opposite arm. If arm with actively infusing heparin must be used, pause the infusion for at least 2 minutes, and draw specimen below the IV site. For patients with a central venous catheter (CVC), lab must be drawn peripherally (not from CVC). us Claude Garza MD LAB BLOOD ORDERABLES Final Res ult [facility] [place] [address] * eGFR (12/15/2024 12:37 AM COMMUNICATIONS DEPARTMENT CHAIRPERSON) [facility] eGFR 67 >=60 mL/min/1. 73 m2 Comment: Interpretive Data [...] interpretive data was last reviewed 2021. Blood 12/15/2024 12:3 7 AM COMMUNICATIONS DEPARTMENT CHAIRPERSON 12/15/2024 1:25 AM COMMUNICATIONS DEPARTMENT CHAIRPERSON us Claude Garza MD LAB BLOOD ORDERABLES Final Res ult RITCHIE PLASCENCIA One [facility] [place] [address] * (ABNORMAL) aPTT (12/15/2024 12:37 AM COMMUNICATIONS DEPARTMENT CHAIRPERSON) aPTT 69(H) 28 - 38 sec Comment: Interpretive Data Heparin therapeutic range: 66.0 - 100.0 seconds. Range based on correlation with therapeutic heparin activity range of 0.3 - 0.7 Units/mL. Current interpretive data was last revised on 2023. Blood 12/15/2024 12:3 7 AM COMMUNICATIONS DEPARTMENT CHAIRPERSON 12/15/2024 1:36 AM COMMUNICATIONS DEPARTMENT CHAIRPERSON Narrative [facility] - 12/15/2024 1:59 AM COMMUNICATIONS DEPARTMENT CHAIRPERSON STAT PTT timing: - Draw 6 hours after heparin infusion initiation - Draw 6 hours after every dose change until 2 consecutive PTTs are therapeutic - Once 2 consecutive PTTs are therapeutic, obtain with daily labs until infusion is discontinued - - Restart every 6 hour lab draws and follow instructions accordingly if PTT is outside of therapeutic range Do not draw lab from IV line that is actively infusing heparin. Use the opposite arm. If arm with actively infusing heparin must be used, pause the infusion for at least 2 minutes, and draw specimen below the IV site. For patients with a central venous catheter (CVC), lab must be drawn peripherally (not from CVC). Claude Garza MD LAB BLOOD ORDERABLES Final Res ult Performing Organization Address [facility] Co de Phone Number [facility] [place] [address] * (ABNORMAL) CBC without differential (12/15/2024 12:37 AM COMMUNICATIONS DEPARTMENT CHAIRPERSON) [facility] WBC 11.2(H) 3.8 - 9.9 K/cumm Hgb 12.7 11.9 - 15.5 g/dL [facility] Hct 41.2 35.6 - 45.5 % [facility] Plt 255 150 - 400 K/cumm [facility] MPV 10.7 9.1 - 12.3 fL [facility] RBC 4.77 3.90 - 5.20 M/cumm [facility] MCV 86.4 81.3 - 96.4 fL [facility] MCH 26.6(L) 27.1 - 33.3 pg [facility] MCHC 30.8(L) 32.3 - 35.7 g/dL [facility] RDW CV Not Measured 11.1 - 14.9 % [facility] RDW SD Not Measured 35.7 - 48.1 fL [facility] NRBC abs 0.00 0.00 - 0.01 K/cumm [facility] Blood 12/15/2024 12:3 7 AM COMMUNICATIONS DEPARTMENT CHAIRPERSON 12/15/2024 1:25 AM COMMUNICATIONS DEPARTMENT CHAIRPERSON Claude Garza MD LAB BLOOD ORDERABLES Final Res ult Performing Organization Address [facility] Co de Phone Number [facility] Department [place] [address] * Basic metabolic panel (12/15/2024 12:37 AM COMMUNICATIONS DEPARTMENT CHAIRPERSON) Sodium 145 135 - 145 mmol/L Potassium, pl 3.8 3.3 - 4.9 mmol/L [facility] Chloride 109 97 - 110 mmol/L [facility] CO2 26 22 - 32 mmol/L [facility] Anion gap 10 2 - 15 mmol/L [facility] BUN 16 6 - 25 mg/dL [facility] Creatinine 1.01 0.60 - 1.10 mg/dL [facility] Glucose 92 70 - 199 mg/dL [facility] Comment: Interpretive Data Fasting glucose >/= 126 [...] interpretive data was last revised 2022. Calcium 8.9 8.5 - 10.3 mg/dL [facility] Blood 12/15/2024 12:3 7 AM COMMUNICATIONS DEPARTMENT CHAIRPERSON 12/15/2024 1:25 AM COMMUNICATIONS DEPARTMENT CHAIRPERSON us Claude Garza MD LAB BLOOD ORDERABLES Final Res ult [facility] One [facility] [place] [address] * (ABNORMAL) aPTT (12/14/2024 5:25 PM COMMUNICATIONS DEPARTMENT CHAIRPERSON) aPTT 58(H) 28 - 38 sec Comment: Interpretive Data Heparin therapeutic range: 66.0 - 100.0 seconds. Range based on correlation with therapeutic heparin activity range of 0.3 - 0.7 Units/mL. Current interpretive data was last revised on 2023. Blood 12/14/2024 5:25 PM COMMUNICATIONS DEPARTMENT CHAIRPERSON 12/14/2024 5:59 PM COMMUNICATIONS DEPARTMENT CHAIRPERSON Narrative [facility] - 12/14/2024 6:08 PM COMMUNICATIONS DEPARTMENT CHAIRPERSON STAT PTT timing: - Draw 6 hours after heparin infusion initiation - Draw 6 hours after every dose change until 2 consecutive PTTs are therapeutic - Once 2 consecutive PTTs are therapeutic, obtain with daily labs until infusion is discontinued - - Restart every 6 hour lab draws and follow instructions accordingly if PTT is outside of therapeutic range Do not draw lab from IV line that is actively infusing heparin. Use the opposite arm. If arm with actively infusing heparin must be used, pause the infusion for at least 2 minutes, and draw specimen below the IV site. For patients with a central venous catheter (CVC), lab must be drawn peripherally (not from CVC). us Claude Garza MD LAB BLOOD ORDERABLES Final Res ult [facility] One [facility] [place] [address] * (ABNORMAL) aPTT (12/14/2024 9:22 AM COMMUNICATIONS DEPARTMENT CHAIRPERSON) [facility] aPTT 56(H) 28 - 38 sec Comment: Interpretive Data Heparin therapeutic range: 66.0 - 100.0 seconds. Range based on correlation with therapeutic heparin activity range of 0.3 - 0.7 Units/mL. Current interpretive data was last revised on 2023. Blood 12/14/2024 9:22 AM COMMUNICATIONS DEPARTMENT CHAIRPERSON 12/14/2024 9:48 AM COMMUNICATIONS DEPARTMENT CHAIRPERSON Narrative [facility] - 12/14/2024 10:13 AM COMMUNICATIONS DEPARTMENT CHAIRPERSON STAT PTT timing: - Draw 6 hours after heparin infusion initiation - Draw 6 hours after every dose change until 2 consecutive PTTs are therapeutic - Once 2 consecutive PTTs are therapeutic, obtain with daily labs until infusion is discontinued - - Restart every 6 hour lab draws and follow instructions accordingly if PTT is outside of therapeutic range Do not draw lab from IV line that is actively infusing heparin. Use the opposite arm. If arm with actively infusing heparin must be used, pause the infusion for at least 2 minutes, and draw specimen below the IV site. For patients with a central venous catheter (CVC), lab must be drawn peripherally (not from CVC). Claude Garza MD LAB BLOOD ORDERABLES Final Res ult Performing Organization Address [facility] Co de Phone Number [facility] [place] [address] * (ABNORMAL) aPTT (12/14/2024 2:10 AM COMMUNICATIONS DEPARTMENT CHAIRPERSON) aPTT 40(H) 28 - 38 sec Comment: Interpretive Data Heparin therapeutic range: 66.0 - 100.0 seconds. Range based on correlation with therapeutic heparin activity range of 0.3 - 0.7 Units/mL. Current interpretive data was last revised on 2023. Blood 12/14/2024 2:10 AM COMMUNICATIONS DEPARTMENT CHAIRPERSON 12/14/2024 2:47 AM COMMUNICATIONS DEPARTMENT CHAIRPERSON Narrative [facility] - 12/14/2024 2:55 AM COMMUNICATIONS DEPARTMENT CHAIRPERSON STAT PTT timing: - Draw 6 hours after heparin infusion initiation - Draw 6 hours after every dose change until 2 consecutive PTTs are therapeutic - Once 2 consecutive PTTs are therapeutic, obtain with daily labs until infusion is discontinued - - Restart every 6 hour lab draws and follow instructions accordingly if PTT is outside of therapeutic range Do not draw lab from IV line that is actively infusing heparin. Use the opposite arm. If arm with actively infusing heparin must be used, pause the infusion for at least 2 minutes, and draw specimen below the IV site. For patients with a central venous catheter (CVC), lab must be drawn peripherally (not from CVC). Claude Garza MD LAB BLOOD ORDERABLES Final Res ult Performing Organization Address [facility] Co de Phone Number [facility] PLASCENC[facility] Department [place] [address] * CTA Abdominal Aorta And Bilateral Iliofemoral Runoff (12/13/2024 8:00 PM COMMUNICATIONS DEPARTMENT CHAIRPERSON) Anatomical Region Laterality Modality Body Bilateral Computed Tomogra phy 12/13/2024 8:21 PM COMMUNICATIONS DEPARTMENT CHAIRPERSON Impressions 12/13/2024 8:40 PM COMMUNICATIONS DEPARTMENT CHAIRPERSON 1. 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 There is reconstitution distally via diminutive vessel runoff. Findings consistent interval occlusion of the bypass graft. 2 vessel runoff as described above with occlusion of the peroneal artery. 2. Left lower extremity: No significant change in occlusion of the superficial femoral artery with distal reconstitution. Two-vessel runoff is again seen. The Critical results were discussed with Dr. Haskins by Dr. Koch on 12/13/2024 at 8:08 PM. Dictated by: Abdullahi Koch MD The radiology attending physician has personally reviewed this study, and had reviewed and/or edited this written report and agrees with it. Electronically signed by: Jose Carlos Hardwick M.D. Narrative 12/13/2024 8:40 PM COMMUNICATIONS DEPARTMENT CHAIRPERSON EXAMINATION: CT ANGIOGRAPHY OF THE ABDOMEN, PELVIS, AND LOWER EXTREMITIES WITH CONTRAST HISTORY: Suspected occlusion of bypass graft in the right femoral with cold pulseless right foot TECHNIQUE: CT angiography of the abdomen, pelvis, and lower extremities was performed following the uneventful intravenous administration of 114 ml Optiray-350. Vascular 3D images were generated on a dedicated workstation and also reviewed. COMPARISON: 10/07/2024 FINDINGS: VASCULAR FINDINGS: Abdominal Aorta and Branches: Celiac axis: Occluded with collateralized flow providing reconstitution at the level of the common hepatic artery. 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 SMA: no significant stenosis TY: no significant stenosis Right renal vessels: no significant stenosis Left renal vessels: Moderate stenosis at its midportion Infrarenal aorta: no significant stenosis. No aneurysm. Pelvic Vessels: R. Common iliac artery: no significant stenosis R. External iliac artery: Mild calcifications without significant stenosis R. Internal iliac artery: Multifocal moderate stenosis with distal occlusion L. Common iliac artery: no significant stenosis L. External iliac artery: no significant stenosis L. Internal iliac artery: no significant stenosis Right Lower Extremity: R. Common femoral artery: Entirely excluded R. Profunda femoris artery: Occluded R. Superficial femoral artery: Occluded R. Popliteal artery: Distal reconstitution to the graft site . R. Anterior tibial artery: Diminutive with thready opacification and distal occlusion R. Tibioperoneal trunk: Multifocal moderate to high-grade stenosis R. Posterior tibial artery: Patent R. Peroneal artery: Occluded immediately distal to its origin R. Dorsalis pedis artery: Diminutive R. Plantar artery: Nonopacified Left Lower Extremity: L. Common femoral artery: no significant stenosis L. Profunda femoris artery: no significant stenosis L. Superficial femoral artery: Redemonstrated occlusion at the origin with distal reconstitution L. Popliteal artery: no significant stenosis L. Anterior tibial artery: Slightly diminutive L. Tibioperoneal trunk: no significant stenosis L. Posterior tibial artery: no significant stenosis L. Peroneal artery: no significant stenosis L. Dorsalis pedis artery: no significant stenosis L. Plantar artery: no significant stenosis Numerous collaterals are present throughout the left lower extremity. NON-VASCULAR FINDINGS: Heart size is normal without pericardial effusion. Minimal hepatic surface undulation with redemonstrated periportal widening which may represent fibrosis. The gallbladder is absent. Pancreas is normal. 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 Unchanged bilateral adrenal adenomas. Delayed appearance with cortical scarring of the kidneys. Urinary bladder is normal. Status post hysterectomy. Bowel is normal caliber. No bowel wall thickening. No pneumoperitoneum. No suspicious lymphadenopathy. No suspicious osseous lesion. There is associated soft tissue stranding about the distal portion of the bypass graft. Procedure Note Jose Carlos Hardwick II, MD - 12/13/2024 EXAMINATION: CT ANGIOGRAPHY OF THE ABDOMEN, PELVIS, AND LOWER EXTREMITIES WITH CONTRAST HISTORY: Suspected occlusion of bypass graft in the right femoral with cold pulseless right foot TECHNIQUE: CT angiography of the abdomen, pelvis, and lower extremities was performed following the uneventful intravenous administration of 114 ml Optiray-350. Vascular 3D images were generated on a dedicated workstation and also reviewed. COMPARISON: 10/07/2024 FINDINGS: VASCULAR FINDINGS: Abdominal Aorta and Branches: Celiac axis: Occluded with collateralized flow providing reconstitution at the level of the common hepatic artery. 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 SMA: no significant stenosis TY: no significant stenosis Right renal vessels: no significant stenosis Left renal vessels: Moderate stenosis at its midportion Infrarenal aorta: no significant stenosis. No aneurysm. Pelvic Vessels: R. Common iliac artery: no significant stenosis R. External iliac artery: Mild calcifications without significant stenosis R. Internal iliac artery: Multifocal moderate stenosis with distal occlusion L. Common iliac artery: no significant stenosis L. External iliac artery: no significant stenosis L. Internal iliac artery: no significant stenosis Right Lower Extremity: R. Common femoral artery: Entirely excluded R. Profunda femoris artery: Occluded R. Superficial femoral artery: Occluded R. Popliteal artery: Distal reconstitution to the graft site . R. Anterior tibial artery: Diminutive with thready opacification and distal occlusion R. Tibioperoneal trunk: Multifocal moderate to high-grade stenosis R. Posterior tibial artery: Patent R. Peroneal artery: Occluded immediately distal to its origin R. Dorsalis pedis artery: Diminutive R. Plantar artery: Nonopacified Left Lower Extremity: L. Common femoral artery: no significant stenosis L. Profunda femoris artery: no significant stenosis L. Superficial femoral artery: Redemonstrated occlusion at the origin with distal reconstitution L. Popliteal artery: no significant stenosis L. Anterior tibial artery: Slightly diminutive L. Tibioperoneal trunk: no significant stenosis L. Posterior tibial artery: no significant stenosis L. Peroneal artery: no significant stenosis L. Dorsalis pedis artery: no significant stenosis L. Plantar artery: no significant stenosis Numerous collaterals are present throughout the left lower extremity. NON-VASCULAR FINDINGS: Heart size is normal without pericardial effusion. Minimal hepatic surface undulation with redemonstrated periportal widening which may represent fibrosis. The gallbladder is absent. Pancreas is normal. 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 Unchanged bilateral adrenal adenomas. Delayed appearance with cortical scarring of the kidneys. Urinary bladder is normal. Status post hysterectomy. Bowel is normal caliber. No bowel wall thickening. No pneumoperitoneum. No suspicious lymphadenopathy. No suspicious osseous lesion. There is associated soft tissue stranding about the distal portion of the bypass graft. IMPRESSION: 1. 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 There is reconstitution distally via diminutive vessel runoff. Findings consistent interval occlusion of the bypass graft. 2 vessel runoff as described above with occlusion of the peroneal artery. 2. Left lower extremity: No significant change in occlusion of the superficial femoral artery with distal reconstitution. Two-vessel runoff is again seen. The Critical results were discussed with Dr. Haskins by Dr. Koch on 12/13/2024 at 8:08 PM. Dictated by: Abdullahi Koch MD The radiology attending physician has personally reviewed this study, and had reviewed and/or edited this written report and agrees with it. Electronically signed by: Jose Carlos Hardwick M.D. Paulette Haskins MD IMG CT PROCEDURES Kelsea l Result * NC CRITICAL CARE ILL/INJURED PATIENT INIT 30-74 MIN (12/13/2024 7:12 PM COMMUNICATIONS DEPARTMENT CHAIRPERSON) Narrative Fatimah Glover MD - 12/13/2024 7:12 PM COMMUNICATIONS DEPARTMENT CHAIRPERSON Fatimah Glover MD 12/18/2024 8:25 AM Critical Care Performed by: Fatimah Glover MD Authorized by: Fatimah Glover MD Critical care provider statement: As reflected in the history, physical exam, orders, notes, and/or MDM, I was personally present while the patient was critically ill and provided critical care services for 35 minutes, excluding time involved in separately billable procedures. Critical care was necessary to treat or prevent imminent or life-threatening deterioration of the following condition(s): acute arterial occlusion Critical care was time spent by me providing the following: continuous telemetry, continuous pulse oximetry, serial bedside patient exams and serial laboratory checks initiation, monitoring, and/or titration of anticoagulants I provided emergent necessary critical care medicine services to this patient. I ordered and reviewed test results and/or imaging studies. I spent time discussing the management of this critically ill patient with consultants and the medical staff. I spent time discussing the management and therapeutic options for this critically ill patient with the patient themselves or with the appropriate designated surrogate decision-maker. I spent time documenting in the medical record. I admitted this patient to a continuous cardiac monitored bed. Fatimah Glover MD IN CLINIC/BEDSIDE ORDERAB LES Final Result * eGFR (12/13/2024 6:44 PM COMMUNICATIONS DEPARTMENT CHAIRPERSON) [facility] eGFR 64 >=60 mL/min/1. 73 m2 Comment: Interpretive Data [...] interpretive data was last reviewed 2021. Blood 12/13/2024 6:44 PM COMMUNICATIONS DEPARTMENT CHAIRPERSON 12/13/2024 6:53 PM COMMUNICATIONS DEPARTMENT CHAIRPERSON us Fatimah Glover MD LAB BLOOD ORDERABLES Kelsea mack Result [facility] One [facility] [place] [address] * (ABNORMAL) Differential, auto (12/13/2024 6:44 PM COMMUNICATIONS DEPARTMENT CHAIRPERSON) Pathologist [facility] Neutrophil abs 8.1(H) 1.5 - 6.5 K/cumm Imm gran abs 0.0 0.0 - 0.1 K/cumm [facility] Lymphocyte abs 5.0(H) 0.8 - 3.3 K/cumm [facility] Monocyte abs 1.0(H) 0.2 - 0.8 K/cumm [facility] Eosinophil abs 0.2 0.0 - 0.5 K/cumm [facility] Basophil abs 0.1 0.0 - 0.1 K/cumm [facility] Neutrophil pct 56.0 % [facility] Comment: Interpretive Data Percent cell count reference ranges are not reported, since discordance with absolute values may lead to misinterpretation of CBC data. Current Interpretive Data was last revised on 2018. Imm gran pct 0.2 % [facility] Comment: Interpretive Data Percent cell count reference ranges are not reported, since discordance with absolute values may lead to misinterpretation of CBC data. Current Interpretive Data was last revised on 2018. Lymphocyte pct 34.4 % [facility] Comment: Interpretive Data Percent cell count reference ranges are not reported, since discordance with absolute values may lead to misinterpretation of CBC data. Current Interpretive Data was last revised on 2018. Monocyte pct 7.2 % [facility] Comment: Interpretive Data Percent cell count reference ranges are not reported, since discordance with absolute values may lead to misinterpretation of CBC data. Current Interpretive Data was last revised on 2018. Eosinophil pct 1.5 % [facility] Comment: Interpretive Data Percent cell count reference ranges are not reported, since discordance with absolute values may lead to misinterpretation of CBC data. Current Interpretive Data was last revised on 2018. Basophil pct 0.7 % [facility] Comment: Interpretive Data Percent cell count reference ranges are not reported, since discordance with absolute values may lead to misinterpretation of CBC data. Current Interpretive Data was last revised on 2018. Blood 12/13/2024 6:44 PM COMMUNICATIONS DEPARTMENT CHAIRPERSON 12/13/2024 6:53 PM COMMUNICATIONS DEPARTMENT CHAIRPERSON us Fatimah Glover MD LAB BLOOD ORDERABLES Kelsea mack Result [facility] One [facility] [place] [address] * (ABNORMAL) CBC with auto differential (12/13/2024 6:44 PM COMMUNICATIONS DEPARTMENT CHAIRPERSON) WBC 14.5(H) 3.8 - 9.9 K/cumm Hgb 14.0 11.9 - 15.5 g/dL [facility] Hct 45.5 35.6 - 45.5 % [facility] Plt 317 150 - 400 K/cumm [facility] MPV 9.8 9.1 - 12.3 fL [facility] RBC 5.33(H) 3.90 - 5.20 M/cumm [facility] MCV 85.4 81.3 - 96.4 fL [facility] MCH 26.3(L) 27.1 - 33.3 pg [facility] MCHC 30.8(L) 32.3 - 35.7 g/dL [facility] RDW CV Not Measured 11.1 - 14.9 % [facility] RDW SD Not Measured 35.7 - 48.1 fL [facility] NRBC abs 0.00 0.00 - 0.01 K/cumm [facility] Blood 12/13/2024 6:44 PM COMMUNICATIONS DEPARTMENT CHAIRPERSON 12/13/2024 6:53 PM COMMUNICATIONS DEPARTMENT CHAIRPERSON Fatimah Glover MD LAB BLOOD ORDERABLES Kelsea l Result Performing Organization Address [facility] [place] de Phone Number [facility] [place] [address] * aPTT (12/13/2024 6:44 PM COMMUNICATIONS DEPARTMENT CHAIRPERSON) aPTT 32 28 - 38 sec Comment: Interpretive Data Heparin therapeutic range: 66.0 - 100.0 seconds. Range based on correlation with therapeutic heparin activity range of 0.3 - 0.7 Units/mL. Current interpretive data was last revised on 2023. Blood 12/13/2024 6:44 PM COMMUNICATIONS DEPARTMENT CHAIRPERSON 12/13/2024 6:55 PM COMMUNICATIONS DEPARTMENT CHAIRPERSON Fatimah Glover MD LAB BLOOD ORDERABLES Kelsea l Result Performing Organization Address [facility] de Phone Number [place] [address] * Protime-INR (12/13/2024 6:44 PM COMMUNICATIONS DEPARTMENT CHAIRPERSON) PT 11.1 9.7 - 13.0 sec INR 1.03 0.90 - 1.20 [facility] Comment: Interpretive data Oral anticoagulant therapeutic ranges: Venous thromboembolism prophylaxis or treatment: 2.0-3.0 CARDIOLOGY Standard range: 2.0-3.0 High-intensity range: 2.5-3.5 Refer to indication-specific guidelines for appropriate target ranges for prosthetic heart valve replacement. Current interpretive data was last revised on 2019. Blood 12/13/2024 6:44 PM COMMUNICATIONS DEPARTMENT CHAIRPERSON 12/13/2024 6:55 PM COMMUNICATIONS DEPARTMENT CHAIRPERSON Fatimah Glover MD LAB BLOOD ORDERABLES Kelsea l Result Performing Organization Address [facility] [place] [address] * Type and screen (12/13/2024 6:44 PM COMMUNICATIONS DEPARTMENT CHAIRPERSON) Pathologist [facility] ABO Rh A Positive Ella, indirect Negative [facility] Blood 12/13/2024 6:44 PM COMMUNICATIONS DEPARTMENT CHAIRPERSON 12/13/2024 7:12 PM COMMUNICATIONS DEPARTMENT CHAIRPERSON Narrative [facility] - 12/13/2024 8:17 PM COMMUNICATIONS DEPARTMENT CHAIRPERSON Has the patient had Daratumumab or Isatuximab in the past 6 months?->Unknown Fatimah Glover MD LAB BLOOD BANK TEST ORDER LOUIE Final Result Performing Organization Address [facility] de Phone Number [facility] [place] [address] * Comprehensive metabolic panel (12/13/2024 6:44 PM COMMUNICATIONS DEPARTMENT CHAIRPERSON) Pathologist [facility] Sodium 145 135 - 145 mmol/L Potassium, pl 4.3 3.3 - 4.9 mmol/L [facility] Chloride 108 97 - 110 mmol/L [facility] CO2 26 22 - 32 mmol/L [facility] Anion gap 11 2 - 15 mmol/L [facility] BUN 16 6 - 25 mg/dL [facility] Creatinine 1.05 0.60 - 1.10 mg/dL [facility] Glucose 96 70 - 199 mg/dL [facility] Comment: Interpretive Data Fasting glucose >/= 126 [...] classification and Diagnosis of Diabetes Diabetes Care 202; 46: S19-S40. Current interpretive data was last revised 2022. Calcium 9.7 8.5 - 10.3 mg/dL [facility] Bilirubin, total <0.2 0.1 - 1.2 mg/dL [facility] Protein, pl 7.7 6.5 - 8.5 g/dL [facility] Albumin 4.2 3.5 - 5.0 g/dL [facility] Alk phos 123 40 - 130 Units/L [facility] ALT 12 7 - 45 Units/L [facility] AST 18 10 - 45 Units/L [facility] Blood 12/13/2024 6:44 PM COMMUNICATIONS DEPARTMENT CHAIRPERSON 12/13/2024 6:53 PM COMMUNICATIONS DEPARTMENT CHAIRPERSON Fatimah Glover MD LAB BLOOD ORDERABLES Kelsea l Result [facility] [place] [address] * POCT creatinine (12/13/2024 6:42 PM COMMUNICATIONS DEPARTMENT CHAIRPERSON) Creatinine POC 1.1 0.6 - 1.1 mg/dL Blood 12/13/2024 6:42 PM COMMUNICATIONS DEPARTMENT CHAIRPERSON 12/13/2024 6:42 PM COMMUNICATIONS DEPARTMENT CHAIRPERSON Fatimah Glover MD LAB POCT ORDERABLES - DEV ICE Final Result [facility] [place] [address] * [place] Outside Reference (12/13/2024 10:30 AM COMMUNICATIONS DEPARTMENT CHAIRPERSON) Impressions [facility] - 12/13/2024 10:30 AM COMMUNICATIONS DEPARTMENT CHAIRPERSON These images are for Reference purposes only and have not been reviewed by [facility] Radiology. There will be no report generated by a [facility] Radiologist. Narrative [facility] - 12/13/2024 10:30 AM COMMUNICATIONS DEPARTMENT CHAIRPERSON EXAMINATION: Images For Reference Purposes Only Madelyn Vicente MD PhD IMG US PROCEDURES Kelsea l Result Performing Organization Address [facility] Co de Phone Number [facility] * [facility] CT Outside Reference (12/13/2024 10:29 AM COMMUNICATIONS DEPARTMENT CHAIRPERSON) Impressions [facility] - 12/13/2024 10:29 AM COMMUNICATIONS DEPARTMENT CHAIRPERSON These images are for Reference purposes only and have not been reviewed by [facility] Radiology. There will be no report generated by a [facility] Radiologist. Narrative [facility] - 12/13/2024 10:29 AM COMMUNICATIONS DEPARTMENT CHAIRPERSON EXAMINATION: Images For Reference Purposes Only Result [facility] Madelyn Vicente MD PhD IMG CT PROCEDURES Kelsea l Result Performing Organization Address [facility] de Phone Number [facility] from Last 3 Months Additional Health Concerns Infection Onset Date Last Indicated MDR gram neg/ESBL 07/23/2024 08/01/2024 Insurance [facility]IC[facility] Address: [facility] [address] [place] [address] [facility] MEDICARE [facility] Address: [address] [address] [place] [address] [facility] MEDIC[facility] Address: [address] [address] [place] [address] Advance Directives For more information, please contact: [phone] * Full Code (Latest Code Status on File) Date Activated Date Inactivated Comments 12/16/2024 11:28 PM 12/19/2024 7:37 PM * Full Code Date Activated Date Inactivated Comments 07/23/2024 2:28 AM 08/05/2024 6:34 PM * Full Code Date Activated Date Inactivated Comments 07/15/2024 7:09 PM 07/19/2024 6:46 PM * Full Code Date Activated Date Inactivated Comments 07/03/2024 11:02 AM 07/05/2024 3:47 PM * Full Code Date Activated Date Inactivated Comments 07/03/2024 11:02 AM 07/03/2024 11:02 AM Care Teams Gear Machinist Relationship Specialty Start Date End Date Mor Blancas MD [address] [place] [address] PCP - General Emergency Medicine 03/25/24 Flynn Ma MD [address] [facility] [address] [place], [place] [id number] Medical Oncologist/Legal Services Manager Medical Oncology 09/28/18 Colleen Diaz MD [address] [place] [address] Referring Physician Nephrology 03/24/22 Derek Wilson MD [address] [place] [address] Referring Physician Obstetrics and Gynecology 06/26/23 Mar Jay MD [address] [place] [address] Surgeon Vascular Surgery 08/24/23 Mitch Austni DO [address] [place] [address] Surgeon Surgery 09/26/23 Madelyn Vicente MD PhD [id number] [place], [place] [id number] Registered Nurse Vascular Surgery 07/05/24 Eric Washington MD [address] [place] [address] Consulting Physician Plastic Surgery 07/29/24
--- OUTSIDE RECORDS SUMMARY | 2025-03-04 22:12 | XMS_ITS | Referral Summary ---
Author Organization [facility] Address [address] [place] [address] Care Team Providers Care Nurse Sane Name Role Phone Flynn Ma MD Unavailable Colleen Diaz MD Unavailable Derek Wilson MD Unavailable Mar Jay MD Unavailable Mitch Austin DO Unavailable [phone] Mor Blancas MD Primary Care Provide r Madelyn Vicente MD PhD Unavailable [phone] Eric Washington MD Unavailable Encounters Date Type Department Care Team Description 03/04/2025 Orders Only [facility] Hematology [address] Floor 6 [place] [address] Stephani Robertson Acute lower limb ischemia (Primary Dx) 01/30/2025 Telephone [facility] Pre Anesthesia Testing [address] [place] [address] Karen Delarosa 01/20/2025 Orders Only [facility] Surgery [address] Floor 1 [place] [address] Madelyn Vicente MD PhD 01/17/2025 Telephone [facility] Surgery [address] Floor 1 [place] [address] Greg Kat CMA 01/17/2025 Orders Only [facility] Surgery [address] Floor 1 [place] [address] Madelyn Vicente MD PhD Encounter for surgical aftercare following surgery on the circulatory system (Primary Dx); Presence of other vascular implants and grafts 01/16/2025 Telephone [facility] Surgery [address] Floor 1 [place] [address] Greg Kat CMA 01/09/2025 Orders Only [facility] Oncology [facility] Floor 6 [place] [address] Mireya Briceno RN Iron deficiency anemia, unspecified iron deficiency anemia type (Primary Dx) 01/08/2025 11:20 AM CDT Lab [facility] ([facility]) [address] [place] [address] Anemia, unspecified type 01/08/2025 9:15 AM CDT Office Visit [facility] Surgery [address] [place] [address] 8th [place] [address] [place] [address] Madelyn Vicente MD PhD 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, bilateral legs (Primary Dx); Critical limb ischemia of right lower extremity (HCC) 01/02/2025 3:15 PM CDT Ancillary Procedure [facility] Vascular Lab at the [facility] Advanced Medicine [address] [place] [address] 8th [place] [address] [place] [address] Encounter for surgical aftercare following surgery on the circulatory system; Presence of other vascular implants and grafts 12/30/2024 Orders Only [facility] Surgery [address] Floor 1 [place] [address] Madelyn Vicente MD PhD Encounter for surgical aftercare following surgery on the circulatory system (Primary Dx); Presence of other vascular implants and grafts 12/27/2024 Documentation [facility] Oncology [address] 6 [place] [address] January, RMA Appointment 12/19/2024 Orders Only [facility] Hematology [address] Floor 6 [place] [address] Manasa Quiroz NP Hospital discharge follow-up (Primary Dx) 12/19/2024 7:39 AM CDT Anesthesia Event [facility] Operating Room 1 [place] [address] Justin Jose MD PhD Carver, Shea Elizabeth, MD 12/19/2024 7:30 AM CDT - 12/19/2024 10:05 AM CDT Surgery [facility] Operating Room 1 [place] [address] Claude Garza MD Angiogram 12/13/2024 6:34 PM MACHINE CERAMIC COATER - 12/19/2024 3:34 PM CDT Hospital Encounter [address] [address] Fatimah Glover MD Rubin, Brian G., MD Critical limb ischemia of right lower extremity (HCC) (Primary Dx); Cold right foot; Arterial occlusion Discharge Disposition: Discharge to home or self care 12/17/2024 10:05 AM CDT Ancillary Procedure [facility] Vascular Lab IP [address] [facility] [address] [place] [address] 12/16/2024 1:26 PM CDT Anesthesia Event [facility] Operating Room 1 [place] [address] Naman Magaña MD Dippolito, Jenny Irene, NP 12/16/2024 1:30 PM CDT - 12/16/2024 5:30 PM CDT Surgery [facility] Operating Room 1 [place] [address] Claude Garza MD FEMORAL EMBOLECTOMY/THROMBECTO MY- suction thrombectomy with Penumbra and RLE angiogram 12/13/2024 Telephone [facility] Surgery [address] Floor 1 [place] [address] Greg Kat CMA 12/13/2024 Documentation [facility] Vascular Surgery [facility] Medical Office Building 3 [address] [place] [address] Madelyn Vicente MD PhD 12/13/2024 10:30 AM MACHINE CERAMIC COATER - 12/13/2024 11:59 PM MACHINE CERAMIC COATER Hospital Encounter [facility] [address] [place] [address] Discharge Disposition: Discharge to home or self care 12/13/2024 10:29 AM MACHINE CERAMIC COATER - 12/13/2024 11:59 PM MACHINE CERAMIC COATER Hospital Encounter [facility] [address] [place] [address] Discharge Disposition: Discharge to home or self care 12/13/2024 Telephone [facility] Surgery [address] Floor 1 [place] [address] Greg Kat CMA 12/12/2024 Telephone [facility] Vascular Surgery [address] [place] [address] Medical Office Building [address] [place] [address] Franco Robertson, A from Last 3 Months Allergies Active Allergy [...] underwent emergent OR s/p thrombectomy of R LICENSING MANAGER, bypass graft, below knee popliteal. R groin [...] per ID -normalize today/ OOB/ ambulate -DC leatha - Plan for discharge home with home [...] 07/02/2024 Assessment & Plan (10/16/2024 2:41 PM MACHINE CERAMIC COATER): Has chronic abdominal pain due to likely [...] ordered Assessment & Plan (10/16/2024 2:42 PM MACHINE CERAMIC COATER): Hx RLE arterial occlusion/DVT 07/2023; h/o splenic [...] 07/01/2024 Assessment & Plan (10/16/2024 2:40 PM MACHINE CERAMIC COATER): Patient with previous right lower extremity bypass [...] 07/22: emergent OR s/p thrombectomy of R LICENSING MANAGER, bypass graft, below knee popliteal. R groin [...] 06/26/2023. Held Plavix/Eliquis due to bleeding. 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 Follows with [facility]. Resolved Problems Problem Noted Date Diagnosed Date Resolved Date Urinary tract infection 08/07/2023 06/0 12/2023 Overview (08/07/2023): Recently hospitalized at [place] for pyelonephritis. Discharged on Keflex (08/01-08/10). - Continue cephalexin 500 mg BID. Assessment & Plan (08/07/2023 10:53 PM CDT): Recently hospitalized at [place] for pyelonephritis. Discharged on Keflex (08/01-08/10). - [...] drink = 0.6 oz pur e alcohol) [facility] Utilities Answer Date Recorded In the past 12 months has e [employer], gas, oil, or water [employer] threatened to shut off services in your [...] attend chur ch or denominational services? Never 12/16/2024 Do you belong to any clubs o r organizations such as yazdanism groups, unions, fraternal or athletic groups, or [...] file 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 MACHINE CERAMIC COATER Gender Identity Female 03/14/2022 6:19 PM CDT [...] 01/08/2025 9:21 AM CDT Plan of Treatment Not on file Medical Devices Implanted Type Area Utility Locate Technician Device Identifier Shelf Expiration Date Model / Serial / Lot [employer] Riki Patch Vascuguard 0.88cm [id number] - [id number] Implanted:Qty : 1 on 07/01/2024 by Madelyn Vicente MD PhD at [facility] Other - see comments Right: Common Femoral Artery [employer] Riki [id number] 10/02/2025 [id number] / / [id number] [employer] Riki Stent Peripheral [id number] m 6fr Self-Expandin g Blue Strl [id number] 30 - S00 - [id number] Implanted:Qty : 1 on 12/16/2024 by Claude Garza MD at [facility] Stent Right: Femoral [employer] Riki [id number] 05/20/2029 [id number] / / [id number] [employer] Riki Stent Peripheral [id number] m 6fr Self-Expandin g Blue Strl [id number] 30 - S00 - [id number] Implanted:Qty : 1 on 12/16/2024 by Claude Garza MD at [facility] Stent Right: Femoral [employer] Riki [id number] 05/20/2029 [id number] / / [id number] [employer] System Closure Repair Femoral Artery Suture Mediated Perclose Prostyle 63879-27 - [id number] Implanted:Qty : 1 on 12/16/2024 by Claude Garza MD at [facility] Vascular Closure Device Left: Groin [employer] [id number] 08/08/2026 [id number] / / [id number] [employer] System Closure Repair Femoral Artery Suture Mediated Perclose Prostyle 83694-29 - [id number] Implanted:Qty : 1 on 12/16/2024 by Claude Garza MD at [facility] Vascular Closure Device Left: Groin [employer] [id number] 02/05/2025 69396-55 / / [id number] [employer] Restrata Mini Matrix 100mg Micronized Powder Rmini-100 - [id number] Implanted:Qty : 1 on 07/16/2024 by Madelyn Vicente MD PhD at [facility] Right: Groin [employer] 07/11/2025 RMINI-10 0 / / [id number] [employer] Riki Patch Vascuguard 0.88cm [id number] - [id number] - [id number] Implanted:Qty : 1 on 07/22/2024 by Madelyn Vicente MD PhD at [facility] Right: Knee [employer] Riki [id number] 02/19/2026 [id number] / [id number]- [id number] / [id number] [employer] System Closure Repair Femoral Artery Suture Mediated Perclose Prostyle 90211-26 - [id number] Implanted:Qty : 1 on 12/19/2024 by Claude Garza MD at [facility] Right: Groin [employer] [id number] 03/08/2026 [id number] / [id number] Procedures Procedure Name Priority Date/Time Associated Diagnosis [...] HOUR IP Routine 12/19/2024 9:52 AM CDT TN AN PROCEDURE PLACEHOLDER Routine 12/19/2024 9:45 AM CDT TN AN PROCEDURE PLACEHOLDER Routine 12/19/2024 9:44 AM [...] LOW RANGE Routine 12/16/2024 1:59 PM CDT TN AN PROCEDURE PLACEHOLDER Routine 12/16/2024 1:53 PM CDT TN AN PROCEDURE PLACEHOLDER Routine 12/16/2024 1:51 PM CDT TN AN PROCEDURE PLACEHOLDER Routine 12/16/2024 1:50 PM CDT TN AN ELECTIVE ENDOTRACHEAL AIRWAY Routine 12/16/2024 1:50 [...] AM CDT EGFR Timed 12/15/2024 12:37 AM MACHINE CERAMIC COATER BASIC METABOLIC PANEL Timed 12/15/2024 12:37 AM MACHINE CERAMIC COATER CBC WITHOUT DIFFERENTIAL Timed 12/15/2024 12:37 AM MACHINE CERAMIC COATER APTT STAT 12/15/2024 12:37 AM MACHINE CERAMIC COATER APTT STAT 12/14/2024 5:25 PM MACHINE CERAMIC COATER APTT STAT 12/14/2024 9:22 AM MACHINE CERAMIC COATER APTT STAT 12/14/2024 2:10 AM MACHINE CERAMIC COATER CTA ABDOMINAL AORTA AND BILATERAL ILIOFEMORAL RUNOFF ED Urgent/IP Urgent 12/13/2024 8:00 PM MACHINE CERAMIC COATER TN CRITICAL CARE ILL/INJURED PATIENT INIT 30-74 MIN Routine 12/13/2024 7:12 PM MACHINE CERAMIC COATER EGFR STAT 12/13/2024 6:44 PM MACHINE CERAMIC COATER DIFFERENTIAL AUTO STAT 12/13/2024 6:4 4 PM MACHINE CERAMIC COATER PROTIME-INR STAT 12/13/2024 6:44 PM MACHINE CERAMIC COATER APTT STAT 12/13/2024 6:44 PM MACHINE CERAMIC COATER TYPE AND SCREEN STAT 12/13/2024 6:44 PM MACHINE CERAMIC COATER COMPREHENSIVE METABOLIC PANEL STAT 12/13/2024 6:44 PM MACHINE CERAMIC COATER CBC WITH AUTO DIFFERENTIAL STAT 12/13/2024 6:44 PM MACHINE CERAMIC COATER POCT CREATININE - DEVICE Routine 12/13/2024 6:42 PM MACHINE CERAMIC COATER US TRANSFER OF OUTSIDE FILMS Routine 12/13/2024 10:30 AM MACHINE CERAMIC COATER MSK CT OUTSIDE REFERENCE Routine 12/13/2024 10:29 AM MACHINE CERAMIC COATER Diagnosis unknown from Last 3 Months Results * (ABNORMAL) Differential, auto (01/08/2025 10:11 AM CDT) Neutrophil abs 9.52(H) 1.50 - 6.50 K/cumm Imm gran abs 0.04 0.00 - 0.10 K/cumm [facility] Lymphocyte abs 4.14(H) 0.80 - 3.30 K/cumm [facility] Monocyte abs 0.89(H) 0.20 - 0.80 K/cumm [facility] Eosinophil abs 0.19 0.00 - 0.50 K/cumm [facility] Basophil abs 0.10 0.00 - 0.10 K/cumm [facility] Neutrophil pct 63.9 % [facility] Comment: Interpretive Data Percent cell count reference ranges are not reported, since discordance with absolute values may lead to misinterpretation of CBC data. Current Interpretive Data was last revised on 2018. Imm gran pct 0.3 % [facility] Comment: Interpretive Data Percent cell count reference ranges are not reported, since discordance with absolute values may lead to misinterpretation of CBC data. Current Interpretive Data was last revised on 2018. Lymphocyte pct 27.8 % [facility] Comment: Interpretive Data Percent cell count reference ranges are not reported, since discordance with absolute values may lead to misinterpretation of CBC data. Current Interpretive Data was last revised on 2018. Monocyte pct 6.0 % [facility] Comment: Interpretive Data Percent cell count reference ranges are not reported, since discordance with absolute values may lead to misinterpretation of CBC data. Current Interpretive Data was last revised on 2018. Eosinophil pct 1.3 % [facility] Comment: Interpretive Data Percent cell count reference ranges are not reported, since discordance with absolute values may lead to misinterpretation of CBC data. Current Interpretive Data was last revised on 2018. Basophil pct 0.7 % [facility] Comment: Interpretive Data Percent cell count reference ranges are not reported, since discordance with absolute values may lead to misinterpretation of CBC data. Current Interpretive Data was last revised on 2018. Blood 01/08/2025 10:1 1 AM CDT 01/08/2025 10:36 AM CDT Kirsten Roa NP LAB BLOOD ORDDorie TUTTLE Final Result [facility] [place] [address] * (ABNORMAL) CBC with auto differential (01/08/2025 10:11 AM CDT) WBC 14.88(H) 3.80 - 9.90 K/cumm Hgb 10.7(L) 11.9 - 15.5 g/dL [facility] Hct 34.4(L) 35.6 - 45.5 % [facility] Plt 338 150 - 400 K/cumm [facility] MPV 9.9 9.1 - 12.3 fL [facility] RBC 3.95 3.90 - 5.20 M/cumm [facility] MCV 87.1 81.3 - 96.4 fL [facility] MCH 27.1 27.1 - 33.3 pg [facility] MCHC 31.1(L) 32.3 - 35.7 g/dL [facility] RDW CV 25.1(H) 11.1 - 14.9 % [facility] RDW SD 77.6(H) 35.7 - 48.1 fL [facility] NRBC abs 0.00 0.00 - 0.01 K/cumm [facility] Blood 01/08/2025 10:1 1 AM CDT 01/08/2025 10:36 AM CDT Kisrten Roa NP LAB BLOOD ORDDorie TUTTLE Final Result [facility] [place] [address] * US Arterial Duplex Lower Extremity Right Limited (01/02/2025 4:04 PM CDT) Anatomical Region Laterality Modality Vascular Right Ultrasound 01/02/2025 3:02 PM CDT Narrative 01/03/2025 9:05 PM CDT [facility] - Department of Vascular Surgery, Vascular Laboratory [address] [place] [address] Lower Extremity Arterial Duplex - Bypass Graft Report Patient Name: JEFFERY HAMILTON : 1970 Study Date: 01/02/2025 3:02:10 PM Gender: F Tech: Location: [facility] Ref Provider: MADELYN VICENTE Quality: Adequate [...] 55 cm/s Right Value Units FINDINGS: Performing Rough And Truing Machine Operator: Alta Palacios RVT, RDMS. Right Leg: The [...] See Ankle/Brachial Index report. 2. Patent right LICENSING MANAGER stent. 3. Patent right lower extremity bypass [...] STUDIES: Previous study on 12-17-2024. Patent right LICENSING MANAGER stent. Patent right BPG. DISCLAIMER: The study [...] above. Electronically Signed By: Claude Garza MD [facility] [phone] 01/03/2025 8:31:22 PM CDT Procedure Note Claude Garza MD - 01/03/2025 [facility] - Department of Vascular Surgery,Vascular Laboratory [address] [place] [address] Lower Extremity Arterial Duplex - Bypass Graft Report Patient Name: JEFFERY HAMILTON : 1970 Study Date: 01/02/2025 3:02:10 PM Gender: F Tech: Location: [facility] Ref Provider: MADELYN VICENTE Quality: Adequate Order Provider: MADELYN VICENTE PROCEDURES: Arterial Report: Common femoral - above knee Popliteal Bypass Graft. INDICATIONS: Z48.812 [facility] Z95.828 Presence of other vascular implants and grafts. MEASUREMENTS: Right Value Units Rt Inflow Artery 102 cm/s Rt Proximal Anastomosis 75 cm/s Rt Proximal Graft 64 cm/s Rt Mid Graft 125 cm/s Rt Distal Graft 353 cm/s Rt Distal Anastomosis 109 cm/s Rt Outflow Artery 55 cm/s Right Value Units FINDINGS: Performing Rough And Truing Machine Operator: Alta Palacios RVT, RDMS. Right Leg: The [...] See Ankle/Brachial Index report. 2. Patent right LICENSING MANAGER stent. 3. Patent right lower extremity bypass graft with a >75% stenosis at thedistal graft level. HISTORY: 12-19-2024 right leg angiogram - above knee stenosis 12-16-2024 femoral embolectomy/thrombectomy, BPG thrombectomy, right legangioplasty 10-16-2024 right leg angiogram, right leg angioplasty 07-22-2024 right BPG thrombectomy 07-01-2024 right femoral-popliteal BPG Lower limb ischemia, CKD, DVT, HTN, PAD, PVD. PREVIOUS STUDIES: Previous study on 12-17-2024. Patent right LICENSING MANAGER stent. Patent right BPG. DISCLAIMER: The study [...] above. Electronically Signed By: Claude Garza MD [facility] [phone] 01/03/2025 8:31:22 PM CDT Madelyn Vicente MD PhD IMG US PROCEDURES Kelsea l Result * US Arterial Doppler Lower Extremity Bilateral (01/02/2025 4:04 PM CDT) Anatomical Region Laterality Modality Vascular Bilateral Ultrasound 01/02/2025 3:29 PM CDT Narrative 01/03/2025 9:06 PM CDT [facility] - Department of Vascular Surgery, Vascular Laboratory [address] [place] [address] Lower Extremity Arterial Doppler Report Patient Name: JEFFERY HAMILTON : 1970 Study Date: 01/02/2025 3:29:00 PM Gender: F Tech: Alta Palacios T, RDMS Location: [facility] Ref Provider: MADELYN VICENTE Quality: Adequate Order Provider: MADELYN VICENTE PROCEDURES: Arterial Report: Bilateral lower extremity arterial Doppler exam at rest. INDICATIONS: Z48.812 Encounter for surgical aftercare following surgery on the circulatory system. MEASUREMENTS: Right Value Units Left Value Units Rt Brachial Pressure 156 mmHg Lt Brachial Pressure 152 mmHg Rt SHIPPING CLERK CRATING Pressure 138 mmHg Lt SHIPPING CLERK CRATING Pressure 120 mmHg Rt DPA Pressure 126 mmHg Lt DPA Pressure 114 mmHg Rt 1st Digit Pressure 90 mmHg Lt 1st Digit Pressure 122 mmHg Rt PT KAROLYN Resting 0.88 Lt PT KAROLYN Resting 0.77 Rt AT KAROLYN Resting 0.81 Lt AT KAROLYN Resting 0.73 Rt Digit/Arm Index 0.58 Lt Digit/Arm Index 0.78 Right Value Units Left Value Units FINDINGS: Performing Rough And Truing Machine Operator: Alta Palacios RVT, RDMS. Right Common Femoral [...] above. Electronically Signed By: Claude Garza MD [facility] [phone] 01/03/2025 8:56:56 PM CDT Procedure Note Claude Garza MD - 01/03/2025 [employer] [facility] - Department of Vascular Surgery,Vascular Laboratory [address] [place], [place] [id number] Lower Extremity Arterial Doppler Report Patient Name: JEFFERY HAMILTON : 1970 Study Date: 01/02/2025 3:29:00 PM Gender: F Tech: Alta Palacios RVT, RDMS Location: [facility] Provider: MADELYN VICENTE Quality: Adequate Order Provider: MADELYN VICENTE PROCEDURES: Arterial Report: Bilateral lower extremity arterial Doppler exam at rest. INDICATIONS: Z48.812 Encounter for surgical aftercare following surgery on [employer] system. MEASUREMENTS: Right Value Units Left Value Units Rt Brachial Pressure 156 mmHg Lt Brachial Pressure 152 mmHg Rt SHIPPING CLERK CRATING Pressure 138 mmHg Lt SHIPPING CLERK CRATING Pressure 120 mmHg Rt DPA Pressure 126 mmHg Lt DPA Pressure 114 mmHg Rt 1st Digit Pressure 90 mmHg Lt 1st Digit Pressure 122 mmHg Rt PT KAROLYN Resting 0.88 Lt PT KAROLYN Resting 0.77 Rt AT KAROLYN Resting 0.81 Lt AT KAROLYN Resting 0.73 Rt Digit/Arm Index 0.58 Lt Digit/Arm Index 0.78 Right Value Units Left Value Units FINDINGS: Performing Rough And Truing Machine Operator: Alta Palacios RVT, RDMS. Right Common Femoral [...] above. Electronically Signed By: Claude Garza MD [facility] [phone] 01/03/2025 8:56:56 PM CDT us Madelyn Vicente MD PhD IMG US PROCEDURES Kelsea l Result * FL Fluoroscopy < 1 Hour (12/19/2024 9:52 AM CDT) Narrative [facility] - 12/19/2024 9:53 AM CDT The images from this study are not interpreted by Radiology. Please refer to the physician's procedure / OR operative note. us Claude Garza MD IMG FLUOROSCOPY PROCEDURES Fin al Result [facility] * TN AN PROCEDURE PLACEHOLDER (12/19/2024 9:45 AM CDT) Narrative Justin Jose MD PhD - 12/19/2024 9:45 AM CDT Justin Jose MD PhD 12/19/2024 9:45 AM Peripheral IV Catheter Patient location: OR Staff: Placed by: Anesthesiologist: Justin Jose MD PhD Preprocedure prep: Prep solution: chlorhexadine PPE: gloves and provider hat/mask PIV line: Laterality: right Site: forearm Catheter size: 18 g Technique: anatomical landmarks Procedure details: good blood return Number of attempts: 1 Assessment: Events: patient tolerated procedure well with no complications us Justin Jose MD PhD ANESTHESIA ORDERABLES Final R esult * TN AN PROCEDURE PLACEHOLDER (12/19/2024 9:44 AM CDT) [...] patient tolerated procedure well with no complications us Justin Jose MD PhD ANESTHESIA ORDERABLES [...] Art POC 40 35 - 45 mmHg [facility] pO2, Art POC 160(H) 83 - 108 mmHg [facility] Na, POC 141 135 - 145 mmol/L [facility] K POC 4.0 3.3 - 4.9 mmol/L [facility] Comment: Interpretive Data Not all point of care methods assess for hemolysis. Confirm with instrument and retest K+ if not consistent with clinical signs and symptoms. Current Interpretive Data was last revised on 2024. Cl, POC 111(H) 97 - 110 mmol/L [facility] Ionized Ca, POC 4.87 4.50 - 5.10 mg/dL [facility] Glucose, POC 94 70 - 199 mg/dL [facility] Lactate, POC 1.2 0.7 - 2.0 mmol/L [facility] SO2 (pedrito) arterial 100(H) 90 - 95 % [facility] Base excess, POC 5.0 mmol/L [facility] HCO3, Art POC 29 20 - 30 mmol/L [facility] Hct, POC 29.0(L) 36.3 - 45.3 % [facility] Total Hb, POC 9.5(L) 11.9 - 15.5 g/dL [facility] Blood 12/19/2024 9:01 AM CDT 12/19/2024 9:01 AM CDT Claude Garza MD LAB POCT ORDERABLES - DEVICE F inal Result [facility] [place] [address] * POCT Activated clotting time, low range (12/19/2024 8:51 AM CDT) Pathologist [facility] ACT 133 123 - 168 sec POC Performer [id number] [facility] POC Device Number [id number] [facility] Blood 12/19/2024 8:51 AM CDT 12/19/2024 8:51 AM CDT us Claude Garza MD LAB POCT ORDERABLES - DEVICE F inal Result [facility] [place] [address] * Airway (12/19/2024 8:41 AM CDT) Narrative [...] JAK2/CALR/MPL testing cascade (12/18/2024 11:26 PM CDT) [facility] JAK2 [id number] Not Detected Not Detected [facility] JAK2 [id number] Interpretation Not detected: JAK2 V617F mutation was not detected. As ordered, reflex testing for CALR and MPL mutations will be performed and reported separately. A negative JAK2 V617F result may be caused by one of several factors, including absence of Myeloproliferativ e Neoplasm (MPN) or presence of JAK2 [id number] MPN. A JAK2 V617F mutation is detected in 98% of patients with polycythemia vera (PV), 55% of patients with essential thrombocythemia (ET), and 60% of patients with primary myelofibrosis (PMF). This JAK2 V617F test result should be interpreted within the context of clinical and pathological findings for a definitive diagnosis. [facility] JAK2 V617F Specimen Blood [facility] JAK2 V617F Result Review Final report reviewed by: PAUL Devi([facility]) Playground Official, on 12/27/2024 11:23:10 CDT. [facility] Comment: Interpretive Data Method: The assay detects the JAK2 V617F ([id number]: [id number]) mutation using PCR primers and allele-specific dye-labeled oligonucleotides that exactly match the mutant or normal alleles. When perfectly hybridized to the template DNA sequence, the labeled oligonucleotides are cleaved by the 5 -> 3 exonuclease activity of DNA polymerase. Cleavage during the exponential phase of PCR releases the anhydrous ammonia production supervisor dye from the quencher and the [...] clinical laboratory testing. Literature References: 1. Anastacio Ortega, Kishore R, Rena FOSTER. Genetic basis and molecular profiling in myeloproliferative neoplasms. Blood. 2022Jan 26;141(16):2189 4 594. PMCID: [id number] This test was performed at: [facility], [facility], CLIA#[id number], Connie Stacy, Ph.D., [place], [address], [place] Current interpretive data was last revised 2024. Blood 12/18/2024 11:2 6 PM CDT 12/19/2024 8:54 AM CDT April Villarreal [employer] LAB GENETIC TESTING F inal Result [facility] One [facility] [place] [address] [facility] * CALR with reflex to MPL (myeloproliferative neoplasm) (12/18/2024 11:26 PM CDT) CALR/MPL Specimen type See Footnote Comment:RESULT: DNA from PB - EDTA CALR/MPL Result See Footnote [facility] Comment:RESULT: see interpre tation CALR/MPL Final diagnosis See Footnote [facility] Comment: Extracted DNA from peripheral blood, CALR [...] mutation analysis: Genomic DNA was extracted and Randolph sequencing used to evaluate for mutations in [...] suspicion is high for polycythemia vera and [id number] (JAK2B, JAK2M, or JAK2V) was tested negative, JAK2 Exon 12 analysis could be considered (JAKXB or JAKXM). Signing Pathologist: Phan Underwood D.O. MGenaroS. ADDITIONAL INFORMATION This test was developed and its performance characteristics determined by [facility] in a manner consistent with CLIA requirements. This test has not been cleared or approved by the U.S. Food and Drug Administration. Test Performed by: [facility] [place] [address] Health Evaluator: Artis Lauren Ph.D.; CLIA# [id number] Blood 12/18/2024 11:2 6 PM CDT 12/27/2024 12:09 PM CDT Narrative [facility] - 01/06/2025 10:29 AM CDT CALR, MPL Reflex order reflexed from JAK2/CALR/MPL testing cascade. us April Villarreal NP LAB BLOOD ORDERABLES Final Result [facility] One [facility] [place] [address] * (ABNORMAL) Lupus Anticoagulant Panel plus Reflexes (12/18/2024 11:26 PM CDT) PT 11.0 9.7 - 13.0 sec INR 1.02 0.90 - 1.20 [facility] Comment: Interpretive data Oral anticoagulant therapeutic ranges: Venous thromboembolism prophylaxis or treatment: 2.0-3.0 CARDIOLOGY Standard range: 2.0-3.0 High-intensity range: 2.5-3.5 Refer to indication-specific guidelines for appropriate target ranges for prosthetic heart valve replacement. Current interpretive data was last revised on 2019. aPTT 84(H) 28 - 38 sec [facility] Comment: Interpretive Data Heparin therapeutic range: 66.0 - 100.0 seconds. Range based on correlation with therapeutic heparin activity range of 0.3 - 0.7 Units/mL. Current interpretive data was last revised on 2023. DRVVT screen ratio 1.23(H) 0.00 - 1.20 Ratio [facility] DRV[facility] confirm ratio 1.24 Ratio [facility] DRVVT S/C Ratio 0.99 0.00 - 1.20 Ratio [facility] SCT Screen Ratio 0.83 0.00 - 1.16 Ratio [facility] Lupus anticoagulant, interp Negative [facility] Comment: Interpretive data Lupus anticoagulants (LA) are acquired autoantibodies that interfere with invitro clotting in a phospholipid-dependent manner and are associated with an increased risk of thromboembolic events and complications. Routine APTT and PT reagents are not sensitive to inhibition by LA, and should not be used as screening tests. The laboratory follows ISTH 2009 guidelines (Pengo, 2009) for LA testing and interpretation: Two [...] heparin. References: 1) Randolph V, Lara A, Jessenia JH, Ortanner TL, Delma M, Schwarz PG. Update of the guidelines for lupus anticoagulant detection. J Thromb Haemost. 2009; 7:9305-5919. 2. Rayshawn Chaney et al. International consensus statement on an update of the classification criteria for definite antiphospholipid syndrome (APS). J Thromb Haemost. 2006; 4:295-306. Current interpretive data was last revised on 2018 Blood 12/18/2024 11:2 6 PM CDT 12/19/2024 12:50 AM CDT us April Rocha Phil SUN LAB BLOOD ORDERABLES Final Result Performing Organization Address City/[facility] Co de Phone Number [facility] [place] [address] * (ABNORMAL) eGFR (12/18/2024 11:26 PM CDT) [...] ORDERABLES Final Res ult Performing Organization Address [facility]/ZIP Co de Phone Number [facility] [place] [address] * Cardiolipin antibody, IgG (12/18/2024 11:26 PM CDT) Cardiolipin, IgG <1.6 <=19.9 GPL U/mL Comment: [...] ARCHANA. These results were obtained with the Butlr 2200 System. Cardiolipin IgG values obtained with different manufacturers' assay methods may not be used interchangeably. Current interpretive data was last revised on 2017. Blood 12/18/2024 11:2 6 PM CDT 12/19/2024 12:34 AM CDT us April Villarreal [employer] LAB BLOOD ORDERABLES Final Result [facility] [place] [address] * Beta 2 glycoprotein IgM Ab (12/18/2024 11:26 PM CDT) Beta-2 glycoprotein I, IgM 0.2 <=19.9 units/mL [...] factor. These results were obtained with the [employer] 2200 System. Beta-2 GP1 IgM values obtained with different manufacturers' assay methods may not be used interchangeably. Current interpretive data was last revised on 2017. Blood 12/18/2024 11:2 6 PM CDT 12/19/2024 12:35 AM CDT April Villarreal [employer] LAB BLOOD ORDERABLES Final Result [facility] [place] [address] * Beta 2 glycoprotein IgG Ab (12/18/2024 11:26 PM CDT) [facility] Beta-2 glycoprotein I, IgG <1.4 <=19.9 units/mL Comment: Interpretive Data Negative: <20 U/mL Positive: > or = 20 U/mL Beta-2 glycoprotein 1 (Beta-2 GP1) antibodies are a more specific marker of thrombotic risk. It is expected that some samples will be ACL positive and Beta- 2 US1ahchgulj. In order to improve specificity, the International Congress on Antiphospholipid Antibodies recommends Beta-2 GP1 antibodies of IgG or IgM isotype (> the 99th percentile), obtained twice, at least 12 weeks apart, to support a diagnosis of antiphospholipid syndrome. The cutoff for this assay was developed from data based on the 99th percentile. These results were obtained with the [employer] 2200 System. Beta 2GP1 IgG values obtained with different manufacturers' assay methods may not be used interchangeably. Current interpretive data was last revised on 2017. Blood 12/18/2024 11:2 6 PM CDT 12/19/2024 12:35 AM CDT April Carmonadorie Villarreal [employer] LAB BLOOD ORDERABLES Final Result [facility] Srini [facility] [place] [address] * Cardiolipin antibody, IgM (12/18/2024 11:26 PM [...] antibodies. These results were obtained with the Butlr 2200 System. Cardiolipin IgM values obtained with different manufacturers' assay methods may not be used interchangeably. Current interpretive data was last revised on 2017. Blood 12/18/2024 11:2 6 PM CDT 12/19/2024 12:34 AM CDT Apriltulio Rocha Phil [employer] LAB BLOOD ORDERABLES Final Result R[facility] [place] [address] * P[facility] profile (12/18/2024 11:26 PM CDT) [facility] RBC-CD59 Test Completed [facility] WBC-CD59 Test Completed [facility] FLAER Test Completed [facility] Interpretation See separate Surgical Pathology report. [facility] Blood 12/18/2024 11:2 6 PM CDT 12/19/2024 12:34 AM CDT Narrative [facility] - 12/19/2024 2:05 PM CDT This test was developed and its performance characteristics determined by the [facility]. It has not been [...] and its performance characteristics determined by the [facility]. It has not been [...] for the patient s age. April Villarreal [employer] LAB BLOOD ORDERABLES Final Result Performing Organization Address City/State/[facility] Co de Phone Number [facility] One [facility] [place] [address] * (ABNORMAL) aPTT (12/18/2024 11:26 PM CDT) Pathologist [facility] aPTT 72(H) 28 - 38 sec Comment: Interpretive Data Heparin therapeutic range: 66.0 - 100.0 seconds. Range based on correlation with therapeutic heparin activity range of 0.3 - 0.7 Units/mL. Current interpretive data was last revised on 2023. Blood 12/18/2024 11:2 6 PM CDT 12/19/2024 12:42 AM CDT us Claude Garza MD LAB BLOOD ORDERABLES Final Res ult [facility] [place] [address] * (ABNORMAL) CBC without differential (12/18/2024 11:26 PM CDT) Pathologist [facility] WBC 13.7(H) 3.8 - 9.9 K/cumm Hgb 11.0(L) 11.9 - 15.5 g/dL [facility] Hct 36.0 35.6 - 45.5 % [facility] Plt 241 150 - 400 K/cumm [facility] MPV 11.2 9.1 - 12.3 fL [facility] RBC 4.13 3.90 - 5.20 M/cumm [facility] MCV 87.2 81.3 - 96.4 fL [facility] MCH 26.6(L) 27.1 - 33.3 pg [facility] MCHC 30.6(L) 32.3 - 35.7 g/dL [facility] RDW CV Not Measured 11.1 - 14.9 % [facility] RDW SD Not Measured 35.7 - 48.1 fL [facility] NRBC abs 0.00 0.00 - 0.01 K/cumm [facility] Blood 12/18/2024 11:2 6 PM CDT 12/19/2024 12:34 AM CDT us Claude Garza MD LAB BLOOD ORDERABLES Final Res ult [facility] One [facility] [place] [address] * Phosphorus (12/18/2024 11:26 PM CDT) Phosphorus, pl 2.7 2.3 - 4.5 mg/dL Blood 12/18/2024 11:2 6 PM CDT 12/19/2024 12:34 AM CDT Claude Garza MD LAB BLOOD ORDERABLES Final Res ult [facility] [place] [address] * (ABNORMAL) Magnesium (12/18/2024 11:26 PM CDT) Pathologist [facility] Magnesium 2.6(H) 1.4 - 2.5 mg/dL Blood 12/18/2024 11:2 6 PM CDT 12/19/2024 12:34 AM CDT Claude Garza MD LAB BLOOD ORDERABLES Final Res ult Performing Organization Address [facility] Co de Phone Number [facility] [place] [address] * (ABNORMAL) Basic metabolic panel (12/18/2024 11:26 PM CDT) Pathologist [facility] Sodium 146(H) 135 - 145 mmol/L Potassium, pl 3.9 3.3 - 4.9 mmol/L [facility] Chloride 105 97 - 110 mmol/L [facility] CO2 32 22 - 32 mmol/L [facility] Anion gap 9 2 - 15 mmol/L [facility] BUN 13 6 - 25 mg/dL [facility] Creatinine 1.15(H) 0.60 - 1.10 mg/dL [facility] Glucose 117 70 - 199 mg/dL [facility] Comment: Interpretive Data Fasting glucose >/= [...] classification and Diagnosis of Diabetes Diabetes Care 2022; 46: S19-S40. Current interpretive data was last revised 2022. Calcium 9.3 8.5 - 10.3 mg/dL [facility] Blood 12/18/2024 11:2 6 PM CDT 12/19/2024 12:34 AM CDT us Claude Garza MD LAB BLOOD ORDERABLES Final Res ult [facility] [place] [address] * Surgical pathology (12/18/2024 11:25 PM CDT) Blood 12/18/2024 11:2 5 PM CDT 12/19/2024 9:23 AM CDT Narrative 12/20/2024 7:50 PM CDT EPIC results best viewed via link to PDF [facility] Airam Carroll [facility] [place] [address] Note to Patients: This report may contain [...] Gender: F : 1970 (Age: 54) Address: [address] [place] [id number] Hospital #: [id number] Taken:12/18/2024 Received:12/19/2024 Reported: 12/20/2024 Patient Type: [facility] Inpatient Service: Vascular Location: [place] [id number] Physician(s): Caesar MedellinNGenaroPGenaro Diagnosis: Peripheral blood for [facility] flow cytometry: - No immunophenotypic evidence of paroxysmal nocturnal hemoglobinuria [facility]/12/19/2024 17:23 By this signature, I attest that [...] antibodies to the following cellular antigens: CD45, HT852g, CD15, CD59, FLAER. Total antigens analyzed: 5 [...] Surgical Pathology and Flow Cytometry Departments at [facility] as part of an ongoing production quality manager program and in compliance with federally mandated [...] Surgical Pathology and Flow Cytometry Departments of [facility]. It has not been cleared or approved by the U. S. Food and Drug Administration. IMAGES AND SCANNED DOCUMENTS, IF INCLUDED, ONLY VIEWABLE IN PDF VERSION OF REPORT April Villarreal [employer] OUT LAB PATHOLOGY ORDERAB LES Final Result * (ABNORMAL) aPTT (12/18/2024 4:22 PM CDT) aPTT 89(H) 28 - 38 sec Comment: Interpretive Data Heparin therapeutic range: 66.0 - 100.0 seconds. Range based on correlation with therapeutic heparin activity range of 0.3 - 0.7 Units/mL. Current interpretive data was last revised on 2023. Blood 12/18/2024 4:22 PM CDT 12/18/2024 4:51 PM CDT Narrative [facility] - 12/18/2024 4:59 PM CDT STAT PTT [...] drawn peripherally (not from CVC). us Claude Gazra MD LAB BLOOD ORDERABLES Final Res ult [facility] One [facility] [place] [address] * CTA Abdominal Aorta And Bilateral Iliofemoral [...] it. Electronically signed by: Romana Jolly M.D. us April Villarreal [employer] OUT IMG CT PROCEDURES Fin al Result * (ABNORMAL) aPTT (12/18/2024 6:02 AM CDT) aPTT 60(H) 28 - 38 sec Comment: Interpretive Data Heparin therapeutic range: 66.0 - 100.0 seconds. Range based on correlation with therapeutic heparin activity range of 0.3 - 0.7 Units/mL. Current interpretive data was last revised on 2023. Blood 12/18/2024 6:02 AM CDT 12/18/2024 6:16 AM CDT Daniele [facility] - 12/18/2024 6:39 AM CDT STAT PTT [...] Hull NP LAB BLOOD ORDERABLES Final Result [facility] One [facility] [place] [address] * (ABNORMAL) eGFR (12/17/2024 8:22 PM CDT) Pathologist [facility] eGFR 49(L) >=60 mL/min/1. 73 m2 Comment: [...] MD LAB BLOOD ORDERABLES Final Res ult [facility] One [facility] [place] [address] * (ABNORMAL) aPTT (12/17/2024 8:22 PM CDT) aPTT 61(H) 28 - 38 sec Comment: No clot detected in sample - [id number] - 12/17/24, 9:23 PM Interpretive Data Heparin therapeutic range: 66.0 - 100.0 seconds. Range based on correlation with therapeutic heparin activity range of 0.3 - 0.7 Units/mL. Current interpretive data was last revised on 2023. Blood 12/17/2024 8:22 PM CDT 12/17/2024 9:03 PM CDT Narrative [facility] - 12/17/2024 9:24 PM CDT STAT PTT [...] peripherally (not from CVC). us Bernardo Hull [employer] OUT LAB BLOOD ORDERABLES Final Result Performing Organization Address [facility] Co de Phone Number [facility] [place] [address] * (ABNORMAL) CBC without differential (12/17/2024 8:22 PM CDT) Pathologist [facility] WBC 19.5(H) 3.8 - 9.9 K/cumm Hgb 10.4(L) 11.9 - 15.5 g/dL [facility] Hct 33.7(L) 35.6 - 45.5 % [facility] Plt 245 150 - 400 K/cumm [facility] MPV 11.1 9.1 - 12.3 fL [facility] RBC 3.92 3.90 - 5.20 M/cumm [facility] MCV 86.0 81.3 - 96.4 fL [facility] MCH 26.5(L) 27.1 - 33.3 pg [facility] MCHC 30.9(L) 32.3 - 35.7 g/dL [facility] RDW CV Not Measured 11.1 - 14.9 % [facility] RDW SD Not Measured 35.7 - 48.1 fL [facility] NRBC abs 0.00 0.00 - 0.01 K/cumm [facility] Blood 12/17/2024 8:22 PM CDT 12/17/2024 9:04 PM CDT Claude Garza MD LAB BLOOD ORDERABLES Final Res ult Performing Organization Address [facility] Co de Phone Number [facility] [place] [address] * Phosphorus (12/17/2024 8:22 PM CDT) Pathologist [facility] Phosphorus, pl 3.9 2.3 - 4.5 mg/dL Blood 12/17/2024 8:22 PM CDT 12/17/2024 9:04 PM CDT us Claude Garza MD LAB BLOOD ORDERABLES Final Res ult [facility] [place] [employer] [place] [address] * Magnesium (12/17/2024 8:22 PM CDT) Pathologist [facility] Magnesium 1.5 1.4 - 2.5 mg/dL Blood 12/17/2024 8:22 PM CDT 12/17/2024 9:04 PM CDT Claude Garza MD LAB BLOOD ORDERABLES Final Res ult Performing Organization Address [facility] [[email or web address]] de Phone Number [facility] [place] [employer] [place] [address] * Hemoglobin A1c (12/17/2024 8:22 PM CDT) [facility] Hgb A1C 4.5 4.0 - 5.6 % Estimated Average Glucose 82 mg/dL [facility] Comment: The ADA recommends reporting an estimated [...] MD LAB BLOOD ORDERABLES Final Res ult [facility] [place] [employer] [place] [address] * (ABNORMAL) Basic metabolic panel (12/17/2024 8:22 PM CDT) Pathologist [facility] Sodium 148(H) 135 - 145 mmol/L Potassium, pl 3.7 3.3 - 4.9 mmol/L [facility] Chloride 111(H) 97 - 110 mmol/L [facility] CO2 26 22 - 32 mmol/L [facility] Anion gap 11 2 - 15 mmol/L [facility] BUN 18 6 - 25 mg/dL [facility] Creatinine 1.32(H) 0.60 - 1.10 mg/dL [facility] Glucose 94 70 - 199 mg/dL [facility] Comment: Interpretive Data Fasting glucose >/= [...] 2022. Calcium 8.6 8.5 - 10.3 mg/dL [facility] Blood 12/17/2024 8:22 PM CDT 12/17/2024 9:04 PM CDT us Claude Garza MD LAB BLOOD ORDERABLES Final Res ult [facility] One [facility] [place] [address] * (ABNORMAL) aPTT (12/17/2024 1:00 PM CDT) [facility] aPTT 46(H) 28 - 38 sec Comment: Interpretive Data Heparin therapeutic range: 66.0 - 100.0 seconds. Range based on correlation with therapeutic heparin activity range of 0.3 - 0.7 Units/mL. Current interpretive data was last revised on 2023. Blood 12/17/2024 1:00 PM CDT 12/17/2024 1:26 PM CDT Narrative [facility] - 12/17/2024 1:48 PM CDT STAT PTT [...] LAB BLOOD ORDERABLES Final Res ult [facility] [place] [address] * Arterial Duplex Lower Extremity Right Limited (12/17/2024 12:20 PM CDT) Anatomical Region Laterality Modality Vascular Right Ultrasound 12/17/2024 10:2 9 AM CDT Narrative 12/17/2024 7:12 PM CDT [facility] - Department of Vascular Surgery, Vascular Laboratory [address] [place] [id number] [place] Lower Extremity Arterial Duplex Report Patient Name: JEFFERY HAMILTON ANN : 1970 Study Date: 12/17/2024 10:29:11 AM Gender: F Tech: TANVIR Location: [id number] Ref Provider: BERNARDO HULL Quality: Adequate Order Provider: BERNARDO HULL PROCEDURES: Arterial Report: Right Lower Extremity Arterial Duplex Exam. INDICATIONS: Presence of Vascular Implants and Grafts - MEASUREMENTS: Right Value Units Rt Distal External Iliac 82 cm/s Rt LICENSING MANAGER Dst PSV 142 cm/s Rt Common Femoral [...] 48 cm/s Right Value Units FINDINGS: Performing Rough And Truing Machine Operator: Shey Dorman RDMS, RVT. Right Distal External [...] and during surgery yesterday. 2. Patent right LICENSING MANAGER artery stent. 3. Patent right fem-pop bypass graft. HISTORY: Arterial occlusion Hypertension DVT (deep venous thrombosis) ([facility]) Critical limb ischemia of right lower extremity ([facility]) 12/16/2024: FEMORAL EMBOLECTOMY/THROMBECTOMY- suction thrombectomy with Penumbra [...] above. Electronically Signed By: Claude Garza MD LOCATED WITHIN [facility] [phone] 12/17/2024 7:04:32 PM CDT Procedure Note Claude Garza MD - 12/17/2024 [employer] - Department of Vascular Surgery,Vascular Laboratory [address] [place] [address] [place] Lower Extremity Arterial Duplex Report Patient Name: JEFFERY HAMILTON ANN : 1970 Study Date: 12/17/2024 10:29:11 AM Gender: F Tech: PETER/CARLOS Location: [id number] Ref Provider: BERNARDO HULL Quality: Adequate Order Provider: BERNARDO HULL PROCEDURES: Arterial Report: Right Lower Extremity Arterial Duplex Exam. INDICATIONS: Presence of Vascular Implants and Grafts - MEASUREMENTS: Right Value Units Rt Distal External Iliac 82 cm/s Rt LICENSING MANAGER Dst PSV 142 cm/s Rt Common Femoral [...] 48 cm/s Right Value Units FINDINGS: Performing Rough And Truing Machine Operator: Shey Dorman RDMS, RVT. Right Distal External [...] CTA and duringsurgery yesterday. 2. Patent right LICENSING MANAGER artery stent. 3. Patent right fem-pop bypass graft. HISTORY: Arterial occlusion Hypertension DVT (deep venous thrombosis) ([facility]) Critical limb ischemia of right lower extremity ([facility]) 12/16/2024: FEMORAL EMBOLECTOMY/THROMBECTOMY- suction thrombectomy withPenumbra and [...] above. Electronically Signed By: Claude Garza MD [facility] [phone] 12/17/2024 7:04:32 PM CDT us Bernardo Hull [employer] OUT IMG US PROCEDURES Final Res ult * (ABNORMAL) aPTT (12/17/2024 5:30 AM CDT) Pathologist [facility] aPTT 49(H) 28 - 38 sec Comment: Interpretive Data Heparin therapeutic range: 66.0 - 100.0 seconds. Range based on correlation with therapeutic heparin activity range of 0.3 - 0.7 Units/mL. Current interpretive data was last revised on 2023. Blood 12/17/2024 5:30 AM CDT 12/17/2024 5:58 AM CDT Daniele [facility] - 12/17/2024 6:07 AM CDT [...] LAB BLOOD ORDERABLES Final Res ult [facility] One [facility] [place] [address] * eGFR (12/16/2024 10:52 PM CDT) Pathologist [facility] eGFR 64 >=60 mL/min/1. 73 m2 Comment: [...] MD LAB BLOOD ORDERABLES Final Res ult [facility] One [facility] [place] [address] * (ABNORMAL) CBC without differential (12/16/2024 10:52 PM CDT) WBC 18.2(H) 3.8 - 9.9 K/cumm Hgb 12.1 11.9 - 15.5 g/dL [facility] Hct 39.8 35.6 - 45.5 % [facility] Plt 239 150 - 400 K/cumm [facility] MPV 10.6 9.1 - 12.3 fL [facility] RBC 4.55 3.90 - 5.20 M/cumm [facility] MCV 87.5 81.3 - 96.4 fL [facility] MCH 26.6(L) 27.1 - 33.3 pg [facility] MCHC 30.4(L) 32.3 - 35.7 g/dL [facility] RDW CV Not Measured 11.1 - 14.9 % [facility] RDW SD Not Measured 35.7 - 48.1 fL [facility] NRBC abs 0.00 0.00 - 0.01 K/cumm [facility] Blood 12/16/2024 10:5 2 PM CDT 12/17/2024 12:31 AM CDT us Claude Garza MD LAB BLOOD ORDERABLES Final Res ult [facility] [place] [address] * (ABNORMAL) CBC without differential (12/16/2024 10:52 PM CDT) WBC 18.1(H) 3.8 - 9.9 K/cumm Hgb 12.2 11.9 - 15.5 g/dL [facility] Hct 40.2 35.6 - 45.5 % [facility] Plt 245 150 - 400 K/cumm [facility] MPV 10.8 9.1 - 12.3 fL [facility] RBC 4.60 3.90 - 5.20 M/cumm [facility] MCV 87.4 81.3 - 96.4 fL [facility] MCH 26.5(L) 27.1 - 33.3 pg [facility] MCHC 30.3(L) 32.3 - 35.7 g/dL [facility] RDW CV Not Measured 11.1 - 14.9 % [facility] RDW SD Not Measured 35.7 - 48.1 fL [facility] NRBC abs 0.00 0.00 - 0.01 K/cumm [facility] Blood 12/16/2024 10:5 2 PM CDT 12/17/2024 12:31 AM CDT Narrative [facility] - 12/17/2024 12:40 AM CDT While on heparin infusion us Claude Garza MD LAB BLOOD ORDERABLES Final Res ult [facility] [place] [address] * (ABNORMAL) Phosphorus (12/16/2024 10:52 PM CDT) [facility] Phosphorus, pl 5.3(H) 2.3 - 4.5 mg/dL Blood 12/16/2024 10:5 2 PM CDT 12/17/2024 12:30 AM CDT Claude Garza MD LAB BLOOD ORDERABLES Final Res ult Performing Organization Address [facility] Co de Phone Number [facility] [place] [address] * Magnesium (12/16/2024 10:52 PM CDT) [facility] Magnesium 1.6 1.4 - 2.5 mg/dL Blood 12/16/2024 10:5 2 PM CDT 12/17/2024 12:30 AM CDT Claude Garza MD LAB BLOOD ORDERABLES Final Res ult Performing Organization Address [email or web address]] de Phone Number [facility] [place] [address] * Basic metabolic panel (12/16/2024 10:52 PM CDT) [facility] Sodium 144 135 - 145 mmol/L Potassium, pl 4.3 3.3 - 4.9 mmol/L [facility] Chloride 109 97 - 110 mmol/L [facility] CO2 24 22 - 32 mmol/L [facility] Anion gap 11 2 - 15 mmol/L [facility] BUN 16 6 - 25 mg/dL [facility] Creatinine 1.05 0.60 - 1.10 mg/dL [facility] Glucose 143 70 - 199 mg/dL [facility] Comment: Interpretive Data Fasting glucose >/= [...] Calcium 8.8 8.5 - 10.3 mg/dL [facility] Blood 12/16/2024 10:5 2 PM CDT 12/17/2024 12:30 AM CDT Claude Garza MD LAB BLOOD ORDERABLES Final Res ult Performing Organization Address [facility]/ZIP Co de Phone Number [facility] [place] [employer] [place] [address] * eGFR (12/16/2024 7:42 PM CDT) eGFR [...] ORDERABLES Final Res ult Performing Organization Address City/[facility]/ZIP Co de Phone Number [facility] [place] [address] * (ABNORMAL) CBC without differential (12/16/2024 7:42 PM CDT) [facility] WBC 17.3(H) 3.8 - 9.9 K/cumm Hgb 12.0 11.9 - 15.5 g/dL [facility] Hct 39.0 35.6 - 45.5 % [facility] Plt 269 150 - 400 K/cumm [facility] MPV 10.6 9.1 - 12.3 fL [facility] RBC 4.53 3.90 - 5.20 M/cumm [facility] MCV 86.1 81.3 - 96.4 fL [facility] MCH 26.5(L) 27.1 - 33.3 pg [facility] MCHC 30.8(L) 32.3 - 35.7 g/dL [facility] RDW CV Not Measured 11.1 - 14.9 % [facility] RDW SD Not Measured 35.7 - 48.1 fL [facility] NRBC abs 0.00 0.00 - 0.01 K/cumm [facility] Blood 12/16/2024 7:42 PM CDT 12/16/2024 7:55 PM CDT Claude Garza MD LAB BLOOD ORDERABLES Final Res ult Performing Organization Address City/[facility]/ZIP Co de Phone Number [facility] [place] [address] * (ABNORMAL) Phosphorus (12/16/2024 7:42 PM CDT) [facility] Phosphorus, pl 5.0(H) 2.3 - 4.5 mg/dL Blood 12/16/2024 7:42 PM CDT 12/16/2024 7:55 PM CDT Claude Garza MD LAB BLOOD ORDERABLES Final [facility] [place] [address] * Magnesium (12/16/2024 7:42 PM CDT) [facility] Magnesium 1.6 1.4 - 2.5 mg/dL Blood 12/16/2024 7:42 PM CDT 12/16/2024 7:55 PM CDT Claude Garza MD LAB BLOOD ORDERABLES Final Res ult [facility] [place] [address] * (ABNORMAL) Basic metabolic panel (12/16/2024 7:42 PM CDT) [facility] Sodium 146(H) 135 - 145 mmol/L Potassium, pl 4.1 3.3 - 4.9 mmol/L [facility] Chloride 110 97 - 110 mmol/L [facility] CO2 24 22 - 32 mmol/L [facility] Anion gap 12 2 - 15 mmol/L [facility] BUN 16 6 - 25 mg/dL [facility] Creatinine 1.05 0.60 - 1.10 mg/dL [facility] Glucose 129 70 - 199 mg/dL [facility] Comment: Interpretive Data Fasting glucose >/= [...] 2022. Calcium 8.7 8.5 - 10.3 mg/dL [facility] Blood 12/16/2024 7:42 PM CDT 12/16/2024 7:55 PM CDT us Claude Garza MD LAB BLOOD ORDERABLES Final Res ult Performing Organization Address [facility]/ZIP Co de Phone Number RITCHIE PLASCENCIA One [facility] [place] [address] * FEMORAL EMBOLECTOMY/THROMBECTOMY, ANGIOGRAM (12/16/2024 7:29 PM CDT) Anatomical Region Laterality Modality X-Ray Angiograph y Narrative 12/17/2024 9:11 AM CDT Please see OpNote for result. us Claude Garza MD SURGICAL CASE ORDERS Final Res ult * THROMBECTOMY, ANGIOPLASTY BALLOON/STENT PLACEMENT, BYPASS GRAFT - FEMORAL LOWER EXT [id number] (12/16/2024 7:29 PM CDT) Anatomical Region Laterality Modality X-Ray Angiograph y Narrative 12/17/2024 9:11 AM CDT Please see OpNote for result. Claude Garza MD CV CARDIAC CATH PROCEDURES Fin al Result * FL Fluoroscopy < 1 Hour (12/16/2024 7:13 PM CDT) Narrative [facility] - 12/16/2024 7:14 PM CDT The images from this study are not interpreted by Radiology. Please refer to the physician's procedure / OR operative note. us Claude Garza MD IMG FLUOROSCOPY PROCEDURES Fin al Result Performing Organization Address [facility]/ZIP Co de Phone Number [email or web address] * POCT Activated clotting time, low range (12/16/2024 6:47 PM CDT) ACT 124 123 - 168 sec POC Performer [id number] [facility] POC Device Number [id number] [facility] Blood 12/16/2024 6:47 PM CDT 12/16/2024 6:47 PM CDT us Claude Garza MD LAB POCT ORDERABLES - DEVICE F inal Result Performing Organization Address [facility]/ZIP Co de Phone Number [facility] [place] [address] * (ABNORMAL) POC Blood Gas and Chemistries, Arterial - (12/16/2024 6:23 PM CDT) pH, Art POC 7.40 7.35 - 7.45 pCO2, Art POC 43 35 - 45 mmHg [facility] pO2, Art POC 139(H) 83 - 108 mmHg [facility] Na, POC 143 135 - 145 mmol/L [facility] K POC 3.8 3.3 - 4.9 mmol/L [facility] Comment: Interpretive Data Not all point of care methods assess for hemolysis. Confirm with instrument and retest K+ if not consistent with clinical signs and symptoms. Current Interpretive Data was last revised on 2024. Cl, POC 112(H) 97 - 110 mmol/L [facility] Ionized Ca, POC 4.75 4.50 - 5.10 mg/dL [facility] Glucose, POC 123 70 - 199 mg/dL [facility] Lactate, POC 1.1 0.7 - 2.0 mmol/L [facility] SO2 (pedrito) arterial 100(H) 90 - 95 % [facility] Base excess, POC 1.5 mmol/L [facility] HCO3, Art POC 26 20 - 30 mmol/L [facility] Hct, POC 37.0 36.3 - 45.3 % [facility] Total Hb, POC 12.2 11.9 - 15.5 g/dL [facility] Blood 12/16/2024 6:23 PM CDT 12/16/2024 6:23 PM CDT Claude Garza MD LAB POCT ORDERABLES - DEVICE F inal Result Performing Organization Address City/[facility]/ZIP Co de Phone Number [facility] [place] [address] * (ABNORMAL) POCT Activated clotting time, low range (12/16/2024 6:08 PM CDT) ACT 232(H) 123 - 168 sec POC Performer [id number] [facility] POC Device Number [id number] [facility] Blood 12/16/2024 6:08 PM CDT 12/16/2024 6:08 PM CDT Claude Garza MD LAB POCT ORDERABLES - DEVICE F inal Result [facility] [place] [address] * (ABNORMAL) POCT Activated clotting time, low range (12/16/2024 5:39 PM CDT) ACT 192(H) 123 - 168 sec POC Performer [id number] [facility] POC Device Number [id number] [facility] Blood 12/16/2024 5:39 PM CDT 12/16/2024 5:39 PM CDT Claude Garza MD LAB POCT ORDERABLES - DEVICE F inal Result Performing Organization Address [facility] Co de Phone Number [facility] [place] [address] * (ABNORMAL) POCT Activated clotting time, low range (12/16/2024 5:03 PM CDT) ACT 253(H) 123 - 168 sec POC Performer [id number] [facility] POC Device Number [id number] [facility] Blood 12/16/2024 5:03 PM CDT 12/16/2024 5:03 PM CDT Claude Garza MD LAB POCT ORDERABLES - DEVICE F inal Result Performing Organization Address City/[facility]/ZIP Co de Phone Number [facility] [place] [address] * (ABNORMAL) POCT Activated clotting time, low range (12/16/2024 4:28 PM CDT) ACT 229(H) 123 - 168 sec POC Performer [id number] [facility] POC Device Number [id number] [facility] Blood 12/16/2024 4:28 PM CDT 12/16/2024 4:28 PM CDT Claude Garza MD LAB POCT ORDERABLES - DEVICE F inal Result Performing Organization Address [facility] Co de Phone Number [facility] [place] [address] * (ABNORMAL) POCT Activated clotting time, low range (12/16/2024 3:56 PM CDT) ACT 253(H) 123 - 168 sec POC Performer [id number] [facility] POC Device Number [id number] [facility] Blood 12/16/2024 3:56 PM CDT 12/16/2024 3:56 PM CDT Claude Garza MD LAB POCT ORDERABLES - DEVICE F inal Result Performing Organization Address [facility] Co de Phone Number [facility] [place] [address] * (ABNORMAL) POCT Activated clotting time, low range (12/16/2024 3:26 PM CDT) ACT 245(H) 123 - 168 sec POC Performer [id number] [facility] POC Device Number [id number] [facility] Blood 12/16/2024 3:26 PM CDT 12/16/2024 3:26 PM CDT Claude Garza MD LAB POCT ORDERABLES - DEVICE F inal Result Performing Organization Address [facility]/ZIP Co de Phone Number [facility] [place] [address] * (ABNORMAL) POCT Activated clotting time, low range (12/16/2024 3:03 PM CDT) ACT 253(H) 123 - 168 sec POC Performer [id number] [facility] POC Device Number [id number] [facility] Blood 12/16/2024 3:03 PM CDT 12/16/2024 3:03 PM CDT Claude Garza MD LAB POCT ORDERABLES - DEVICE F inal Result Performing Organization Address [facility] [[email or web address]] de Phone Number [facility] [place] [address] * POCT Activated clotting time, low range (12/16/2024 1:59 PM CDT) ACT 144 123 - 168 sec POC Performer [id number] [facility] POC Device Number [id number] [facility] Blood 12/16/2024 1:59 PM CDT 12/16/2024 1:59 PM CDT Claude Garza MD LAB POCT ORDERABLES - DEVICE F inal Result Performing Organization Address [facility] [[email or web address]] de Phone Number [facility] [place] [address] * [place] AN PROCEDURE PLACEHOLDER (12/16/2024 1:53 PM CDT) [...] patient tolerated procedure well with no complications us Naman Magaña MD ANESTHESIA ORDERABLES Kelsea l Result * [place] AN PROCEDURE PLACEHOLDER (12/16/2024 1:51 PM CDT) William Wood CRNA - 12/16/2024 1:51 PM CDT William Campos CRNA 12/16/2024 1:51 PM Peripheral IV Catheter Patient location: OR Staff: Placed by: CHRISTIAN: William Campos CRNA Preprocedure prep: Prep solution: chlorhexadine PPE: gloves and provider hat/mask PIV line: Laterality: left Site: wrist Catheter size: 18 g Technique: anatomical landmarks and direct visualization Procedure details: good blood return and occlusive dressing applied Number of attempts: 1 Assessment: Events: patient tolerated procedure well with no complications Naman Magaña MD ANESTHESIA ORDERABLES Kelsea l Result * [place] AN ELECTIVE ENDOTRACHEAL AIRWAY, [place] AN PROCEDURE PLACEHOLDER (12/16/2024 1:50 PM CDT) William Wood CRNA - 12/16/2024 1:50 PM CDT William Campos CRNA 12/16/2024 1:50 PM Airway Patient location: OR Urgency: elective Indications for airway management: anesthesia and airway protection Difficult airway: no Staff: Placed by: [employer]CHO[employer] YEAR NANNY: Jeanne Baker CRNA Emergent airway documentation: Risks [...] Ella, indirect Negative ABO Rh A Positive [facility] Blood 12/16/2024 9:44 AM CDT 12/16/2024 11:57 AM CDT Narrative [facility] - 12/16/2024 1:09 PM CDT Has the patient had Daratumumab or Isatuximab in the past 6 months?->Unknown us Claude Garza MD LAB BLOOD BANK TEST ORDERABLES Final Result [facility] One [facility] [place] [address] * eGFR (12/15/2024 10:39 PM CDT) eGFR [...] ORDERABLES Final Res ult Performing Organization Address [facility] Co de Phone Number [facility] [place] [address] * (ABNORMAL) aPTT (12/15/2024 10:39 PM CDT) Pathologist [facility] aPTT 90(H) 28 - 38 sec Comment: Interpretive Data Heparin therapeutic range: 66.0 - 100.0 seconds. Range based on correlation with therapeutic heparin activity range of 0.3 - 0.7 Units/mL. Current interpretive data was last revised on 2023. Blood 12/15/2024 10:3 9 PM CDT 12/15/2024 10:57 PM CDT Narrative [facility] - 12/15/2024 11:27 PM CDT STAT PTT [...] ORDERABLES Final Res ult Performing Organization Address [facility] Co de Phone Number [facility] [place] [address] * (ABNORMAL) CBC without differential (12/15/2024 10:39 PM CDT) Pathologist [facility] WBC 12.2(H) 3.8 - 9.9 K/cumm Hgb 12.9 11.9 - 15.5 g/dL [facility] Hct 41.7 35.6 - 45.5 % [facility] Plt 267 150 - 400 K/cumm [facility] MPV 10.4 9.1 - 12.3 fL [facility] RBC 4.79 3.90 - 5.20 M/cumm [facility] MCV 87.1 81.3 - 96.4 fL [facility] MCH 26.9(L) 27.1 - 33.3 pg [facility] MCHC 30.9(L) 32.3 - 35.7 g/dL [facility] RDW CV Not Measured 11.1 - 14.9 % [facility] RDW SD Not Measured 35.7 - 48.1 fL [facility] NRBC abs 0.00 0.00 - 0.01 K/cumm [facility] Blood 12/15/2024 10:3 9 PM CDT 12/15/2024 10:58 PM CDT Claude Garza MD LAB BLOOD ORDERABLES Final Res ult Performing Organization Address City/[facility]/ZIP Co de Phone Number [facility] [place] [address] * Phosphorus (12/15/2024 10:39 PM CDT) [facility] Phosphorus, pl 3.4 2.3 - 4.5 mg/dL Blood 12/15/2024 10:3 9 PM CDT 12/15/2024 10:57 PM CDT Claude Garza MD LAB BLOOD ORDERABLES Final Res ult [facility] [place] [address] * Magnesium (12/15/2024 10:39 PM CDT) Magnesium 1.9 1.4 - 2.5 mg/dL Blood 12/15/2024 10:3 9 PM CDT 12/15/2024 10:57 PM CDT Claude Garza MD LAB BLOOD ORDERABLES Final Res ult [facility] One [facility] [place] [address] * Basic metabolic panel (12/15/2024 10:39 PM CDT) Pathologist [facility] Sodium 143 135 - 145 mmol/L Potassium, pl 4.0 3.3 - 4.9 mmol/L [facility] Comment:Hemolyzed; Potassium value may be falsely elevated by as much as 0.3-0.5 mmol/L. Suggest redraw and reanalysis. Chloride 108 97 - 110 mmol/L [facility] CO2 24 22 - 32 mmol/L [facility] Anion gap 11 2 - 15 mmol/L [facility] BUN 21 6 - 25 mg/dL [facility] Creatinine 1.09 0.60 - 1.10 mg/dL [facility] Glucose 128 70 - 199 mg/dL [facility] Comment: Interpretive Data Fasting glucose >/= [...] 2022. Calcium 9.3 8.5 - 10.3 mg/dL [facility] Blood 12/15/2024 10:3 9 PM CDT 12/15/2024 10:57 PM CDT Claude Garza MD LAB BLOOD ORDERABLES Final Res ult Performing Organization Address [facility] [[email or web address]] de Phone Number [facility] [place] [address] * (ABNORMAL) aPTT (12/15/2024 6:48 AM CDT) [facility] aPTT 84(H) 28 - 38 sec Comment: Interpretive Data Heparin therapeutic range: 66.0 - 100.0 seconds. Range based on correlation with therapeutic heparin activity range of 0.3 - 0.7 Units/mL. Current interpretive data was last revised on 2023. Blood 12/15/2024 6:48 AM CDT 12/15/2024 7:16 AM CDT Daniele [facility] - 12/15/2024 7:38 AM CDT STAT PTT [...] Garza MD LAB BLOOD ORDERABLES Final [facility] Performing Organization Address [facility] Co de Phone Number [facility] [place] [address] * eGFR (12/15/2024 12:37 AM MACHINE [employer]ERAMIC [employer]ATER) [facility] eGFR 67 >=60 mL/min/1. 73 m2 Comment: [...] reviewed 2021. Blood 12/15/2024 12:3 7 AM MACHINE [employer]ERAM[employer] 12/15/2024 1:25 AM MACHINE [employer]ERAM[employer] us Claude Garza MD LAB BLOOD ORDERABLES Final Res ult [facility] [place] [address] * (ABNORMAL) aPTT (12/15/2024 12:37 AM MACHINE [employer]ERAM[employer]) aPTT 69(H) 28 - 38 sec Comment: Interpretive Data Heparin therapeutic range: 66.0 - 100.0 seconds. Range based on correlation with therapeutic heparin activity range of 0.3 - 0.7 Units/mL. Current interpretive data was last revised on 2023. Blood 12/15/2024 12:3 7 AM MACHINE [employer]ERAM[employer] 12/15/2024 1:36 AM MACHINE [employer] Narrative [facility] - 12/15/2024 1:59 AM MACHINE [employer]ERAM[employer] STAT PTT timing: - Draw 6 hours [...] ORDERABLES Final Res ult Performing Organization Address City/[facility]/ZIP Co de Phone Number [facility] [place] [address] * (ABNORMAL) CBC without differential (12/15/2024 12:37 AM MACHINE [employer]ERAMIC [employer]) [facility] WBC 11.2(H) 3.8 - 9.9 K/cumm Hgb 12.7 11.9 - 15.5 g/dL [facility] Hct 41.2 35.6 - 45.5 % [facility] Plt 255 150 - 400 K/cumm [facility] MPV 10.7 9.1 - 12.3 fL [facility] RBC 4.77 3.90 - 5.20 M/cumm [facility] MCV 86.4 81.3 - 96.4 fL [facility] MCH 26.6(L) 27.1 - 33.3 pg [facility] MCHC 30.8(L) 32.3 - 35.7 g/dL [facility] RDW CV Not Measured 11.1 - 14.9 % [facility] RDW SD Not Measured 35.7 - 48.1 fL [facility] NRBC abs 0.00 0.00 - 0.01 K/cumm [facility] Blood 12/15/2024 12:3 7 AM MACHINE [employer] 12/15/2024 1:25 AM MACHINE [employer]ERAM[employer] Claude Garza MD LAB BLOOD ORDERABLES Final Res ult [facility] [place] [address] * Basic metabolic panel (12/15/2024 12:37 AM MACHINE [employer]ERAM[employer]ATER) Pathologist [facility] Sodium 145 135 - 145 mmol/L Potassium, pl 3.8 3.3 - 4.9 mmol/L [facility] Chloride 109 97 - 110 mmol/L [facility] CO2 26 22 - 32 mmol/L [facility] Anion gap 10 2 - 15 mmol/L [facility] BUN 16 6 - 25 mg/dL [facility] Creatinine 1.01 0.60 - 1.10 mg/dL [facility] Glucose 92 70 - 199 mg/dL [facility] Comment: Interpretive Data Fasting glucose >/= [...] 2022. Calcium 8.9 8.5 - 10.3 mg/dL [facility] Blood 12/15/2024 12:3 7 AM MACHINE [employer] 12/15/2024 1:25 AM MACHINE [employer]ERAMIC [employer] us Claude Garza MD LAB BLOOD ORDERABLES Final Res ult [facility] One [facility] [place] [address] * (ABNORMAL) aPTT (12/14/2024 5:25 PM MACHINE CERAMIC COATER) [facility] aPTT 58(H) 28 - 38 sec Comment: Interpretive Data Heparin therapeutic range: 66.0 - 100.0 seconds. Range based on correlation with therapeutic heparin activity range of 0.3 - 0.7 Units/mL. Current interpretive data was last revised on 2023. Blood 12/14/2024 5:25 PM MACHINE [employer]ERAM[employer] 12/14/2024 5:59 PM MACHINE [employer] Narrative [facility] - 12/14/2024 6:08 PM MACHINE [employer] STAT PTT timing: - Draw 6 hours [...] ORDERABLES Final Res ult Performing Organization Address [facility]/ZIP Co de Phone Number RITCHIE PLASCENCIA One [facility] [place] [address] * (ABNORMAL) aPTT (12/14/2024 9:22 AM MACHINE [employer]ERAMIC [employer]) [facility] aPTT 56(H) 28 - 38 sec Comment: Interpretive Data Heparin therapeutic range: 66.0 - 100.0 seconds. Range based on correlation with therapeutic heparin activity range of 0.3 - 0.7 Units/mL. Current interpretive data was last revised on 2023. Blood 12/14/2024 9:22 AM MACHINE [employer]ERAMIC [employer] 12/14/2024 9:48 AM MACHINE [employer]ERAM[employer] Narrative [facility] - 12/14/2024 10:13 AM MACHINE [employer]ERAMIC [employer] STAT PTT timing: - Draw 6 hours [...] ORDERABLES Final Res ult Performing Organization Address City/[facility]/ZIP Co de Phone Number RITCHIE Milligan [facility] [place] [address] * (ABNORMAL) aPTT (12/14/2024 2:10 AM MACHINE CERAMIC COATER) aPTT 40(H) 28 - 38 sec Comment: Interpretive Data Heparin therapeutic range: 66.0 - 100.0 seconds. Range based on correlation with therapeutic heparin activity range of 0.3 - 0.7 Units/mL. Current interpretive data was last revised on 2023. Blood 12/14/2024 2:10 AM MACHINE CERAMIC COATER 12/14/2024 2:47 AM MACHINE [employer]ERAMIC COATER Narrative RITCHIE EVANS - 12/14/2024 2:55 AM MACHINE [employer]ERAMIC [employer]ATER STAT PTT timing: - Draw 6 hours [...] ORDERABLES Final Res ult RITCHIE PLASCENCIA Srini [facility] [place] [address] * CTA Abdominal Aorta And Bilateral Iliofemoral Runoff (12/13/2024 8:00 PM MACHINE [employer]ERAMIC COATER) Anatomical Region Laterality Modality Body Bilateral Computed Tomogra phy 12/13/2024 8:21 PM MACHINE [employer]ERAMIC COATER Impressions 12/13/2024 8:40 PM MACHINE [employer]ERAMIC COATER 1. Right lower extremity: There is nonopacification [...] Carlos Hardwick M.D. Narrative 12/13/2024 8:40 PM MACHINE CERAMIC COATER EXAMINATION: CT ANGIOGRAPHY OF THE ABDOMEN, PELVIS, [...] Electronically signed by: Jose Carlos Hardwick M.D. us Prerak Dilshad Divine MD IMG CT PROCEDURES Kelsea l Result * [place] CRITICAL CARE ILL/INJURED PATIENT INIT 30-74 MIN (12/13/2024 7:12 PM MACHINE [employer]ERAMIC COATER) Narrative Fatimah Glover MD - 12/13/2024 7:12 PM MACHINE [employer]ERAMIC COATER Fatimah Glover MD 12/18/2024 8:25 AM Critical [...] Final Result * eGFR (12/13/2024 6:44 PM MACHINE CERAMIC COATER) [facility] eGFR 64 >=60 mL/min/1. 73 m2 Comment: [...] last reviewed 2021. Blood 12/13/2024 6:44 PM MACHINE CERAMIC COATER 12/13/2024 6:53 PM MACHINE CERAMIC COATER us Fatimah Glover MD LAB BLOOD ORDERABLES Kelsea mack Result [facility] One [facility] [place] [address] * (ABNORMAL) Differential, auto (12/13/2024 6:44 PM MACHINE CERAMIC COATER) Neutrophil abs 8.1(H) 1.5 - 6.5 K/cumm Imm gran abs 0.0 0.0 - 0.1 K/cumm [facility] Lymphocyte abs 5.0(H) 0.8 - 3.3 K/cumm [facility] Monocyte abs 1.0(H) 0.2 - 0.8 K/cumm [facility] Eosinophil abs 0.2 0.0 - 0.5 K/cumm [facility] Basophil abs 0.1 0.0 - 0.1 K/cumm [facility] Neutrophil pct 56.0 % [facility] Comment: Interpretive Data Percent cell count reference ranges are not reported, since discordance with absolute values may lead to misinterpretation of CBC data. Current Interpretive Data was last revised on 2018. Imm gran pct 0.2 % [facility] Comment: Interpretive Data Percent cell count reference ranges are not reported, since discordance with absolute values may lead to misinterpretation of CBC data. Current Interpretive Data was last revised on 2018. Lymphocyte pct 34.4 % [facility] Comment: Interpretive Data Percent cell count reference ranges are not reported, since discordance with absolute values may lead to misinterpretation of CBC data. Current Interpretive Data was last revised on 2018. Monocyte pct 7.2 % [facility] Comment: Interpretive Data Percent cell count reference ranges are not reported, since discordance with absolute values may lead to misinterpretation of CBC data. Current Interpretive Data was last revised on 2018. Eosinophil pct 1.5 % [facility] Comment: Interpretive Data Percent cell count reference ranges are not reported, since discordance with absolute values may lead to misinterpretation of CBC data. Current Interpretive Data was last revised on 2018. Basophil pct 0.7 % [facility] Comment: Interpretive Data Percent cell count reference ranges are not reported, since discordance with absolute values may lead to misinterpretation of CBC data. Current Interpretive Data was last revised on 2018. Blood 12/13/2024 6:44 PM MACHINE CERAMIC COATER 12/13/2024 6:53 PM MACHINE CERAMIC COATER Fatimah Glover MD LAB BLOOD ORDERABLES Kelsea mack Result [facility] One [facility] [place] [address] * (ABNORMAL) CBC with auto differential (12/13/2024 6:44 PM MACHINE [employer]ERAMIC [employer]) WBC 14.5(H) 3.8 - 9.9 K/cumm Hgb 14.0 11.9 - 15.5 g/dL [facility] Hct 45.5 35.6 - 45.5 % [facility] Plt 317 150 - 400 K/cumm [facility] MPV 9.8 9.1 - 12.3 fL [facility] RBC 5.33(H) 3.90 - 5.20 M/cumm [facility] MCV 85.4 81.3 - 96.4 fL [facility] MCH 26.3(L) 27.1 - 33.3 pg [facility] MCHC 30.8(L) 32.3 - 35.7 g/dL [facility] RDW CV Not Measured 11.1 - 14.9 % [facility] RDW SD Not Measured 35.7 - 48.1 fL [facility] NRBC abs 0.00 0.00 - 0.01 K/cumm [facility] Blood 12/13/2024 6:44 PM MACHINE [employer]ERAMIC COATER 12/13/2024 6:53 PM MACHINE [employer]ERAMIC COATER Fatimah Glover MD LAB BLOOD ORDERABLES Kelsea l Result Performing Organization Address [facility] Co de Phone Number [facility] [place] [employer] [place] [address] * aPTT (12/13/2024 6:44 PM MACHINE CERAMIC COATER) aPTT 32 28 - 38 sec Comment: Interpretive Data Heparin therapeutic range: 66.0 - 100.0 seconds. Range based on correlation with therapeutic heparin activity range of 0.3 - 0.7 Units/mL. Current interpretive data was last revised on 2023. Blood 12/13/2024 6:44 PM MACHINE CERAMIC COATER 12/13/2024 6:55 PM MACHINE CERAMIC COATER Fatimah Glover MD LAB BLOOD ORDERABLES Kelsea l Result Performing Organization Address [facility] [[email or web address]] de Phone Number [facility] [place] [employer] [place] [address] * Protime-INR (12/13/2024 6:44 PM MACHINE CERAMIC COATER) PT 11.1 9.7 - 13.0 sec INR 1.03 0.90 - 1.20 [facility] Comment: Interpretive data Oral anticoagulant therapeutic ranges: Venous thromboembolism prophylaxis or treatment: 2.0-3.0 CARDIOLOGY Standard range: 2.0-3.0 High-intensity range: 2.5-3.5 Refer to indication-specific guidelines for appropriate target ranges for prosthetic heart valve replacement. Current interpretive data was last revised on 2019. Blood 12/13/2024 6:44 PM MACHINE CERAMIC COATER 12/13/2024 6:55 PM MACHINE CERAMIC COATER Fatimah Glover MD LAB BLOOD ORDERABLES Kelsea l Result Performing Organization Address [facility] Co de Phone Number [facility] [place] [address] * Type and screen (12/13/2024 6:44 PM MACHINE CERAMIC COATER) Pathologist [facility] ABO Rh A Positive Ella, indirect Negative [facility] Blood 12/13/2024 6:44 PM MACHINE CERAMIC COATER 12/13/2024 7:12 PM MACHINE CERAMIC COATER Narrative [facility] - 12/13/2024 8:17 PM MACHINE CERAMIC COATER Has the patient had Daratumumab or Isatuximab in the past 6 months?->Unknown Fatimah Glover MD LAB BLOOD BANK TEST ORDER LOUIE Final Result Performing Organization Address [facility] [[email or web address]] de Phone Number [facility] [place] [address] * Comprehensive metabolic panel (12/13/2024 6:44 PM MACHINE CERAMIC COATER) [facility] Sodium 145 135 - 145 mmol/L Potassium, pl 4.3 3.3 - 4.9 mmol/L [facility] Chloride 108 97 - 110 mmol/L [facility] CO2 26 22 - 32 mmol/L [facility] Anion gap 11 2 - 15 mmol/L [facility] BUN 16 6 - 25 mg/dL [facility] Creatinine 1.05 0.60 - 1.10 mg/dL [facility] Glucose 96 70 - 199 mg/dL [facility] Comment: Interpretive Data Fasting glucose >/= [...] 2022. Calcium 9.7 8.5 - 10.3 mg/dL [facility] Bilirubin, total <0.2 0.1 - 1.2 mg/dL [facility] Protein, pl 7.7 6.5 - 8.5 g/dL [facility] Albumin 4.2 3.5 - 5.0 g/dL [facility] Alk phos 123 40 - 130 Units/L [facility] ALT 12 7 - 45 Units/L [facility] AST 18 10 - 45 Units/L [facility] Blood 12/13/2024 6:44 PM MACHINE CERAMIC COATER 12/13/2024 6:53 PM MACHINE CERAMIC COATER Fatimah Glover MD LAB BLOOD ORDERABLES Kelsea l Result Performing Organization Address City/[facility]/ZIP Co de Phone Number [facility] [place] [employer] [place] [address] * POCT creatinine (12/13/2024 6:42 PM MACHINE CERAMIC COATER) Creatinine POC 1.1 0.6 - 1.1 mg/dL Blood 12/13/2024 6:42 PM MACHINE CERAMIC COATER 12/13/2024 6:42 PM MACHINE CERAMIC COATER Fatimah Glover MD LAB POCT ORDERABLES - DEV ICE Final Result Performing Organization Address City/[facility]/ZIP Co de Phone Number [facility] [place] [employer] [place] [address] * [place] Outside Reference (12/13/2024 10:30 AM MACHINE CERAMIC COATER) Impressions [facility] - 12/13/2024 10:30 AM MACHINE CERAMIC COATER These images are for Reference purposes only and have not been reviewed by [facility] Radiology. There will be no report generated by a [facility] Radiologist. Narrative [facility]_PACS[facility] - 12/13/2024 10:30 AM MACHINE CERAMIC COATER EXAMINATION: Images For Reference Purposes Only us Madelyn Vicente MD PhD IMG US PROCEDURES Kelsea l Result Performing Organization Address City/[facility]/ZIP Co de Phone Number [email or web address] * MSK CT Outside Reference (12/13/2024 10:29 AM MACHINE CERAMIC COATER) Impressions [facility] - 12/13/2024 10:29 AM MACHINE CERAMIC COATER These images are for Reference purposes only and have not been reviewed by [facility]iology. There will be no report generated by a [facility] Radiologist. Narrative [facility] - 12/13/2024 10:29 AM MACHINE CERAMIC COATER EXAMINATION: Images For Reference Purposes Only Madelyn Vicente MD PhD IMG CT PROCEDURES Kelsea l Result Performing Organization Address [facility] Co de Phone Number [email or web address] from Last 3 Months Additional Health Concerns Infection Onset Date Last Indicated MDR gram neg/ESBL 07/23/2024 08/01/2024 Insurance [facility] MEDICARE [facility] Address: [facility] [address] [place] [address] [facility] MEDICARE [facility] MEDIC[facility] Address: [address] [address] [place] [address] Advance Directives For more information, please contact: [phone] * Full Code (Latest Code Status on [...] 11:02 AM 07/03/2024 11:02 AM Care Teams Nurse Sane Relationship Specialty Start Date End Date Mor Blancas MD [address] [place] [address] PCP - General Emergency Medicine 03/25/24 Flynn Ma MD [address] [facility] [address] [place], [place] [id number] Medical Oncologist/Bottling Machine Operator Medical Oncology 09/28/18 Colleen Diaz MD [address] [place], [place] [address] Referring Physician Nephrology 03/24/22 Derek Wilson MD [address] [place] [address] Referring Physician Obstetrics and Gynecology 06/26/23 Mar Jay MD [address] [place] [address] Surgeon Vascular Surgery 08/24/23 Mitch Austin DO [address] [facility] [address] [place] [address] Surgeon Surgery 09/26/23 Madelyn Vicente MD PhD [address] [facility] [id number] [place] [address] Registered Nurse Vascular Surgery 07/05/24 Eric Washington MD [address] [place] [address] Consulting Physician Plastic Surgery 07/29/24
[2025-03-04 22:13] VITALS: BP 174/92; PULSE 71; RESP 15; TEMP 36.8; O2SAT 96
--- OUTSIDE RECORDS SUMMARY | 2025-03-04 22:13 | XMS_ITS | Data Portability ---
Author Organization [facility] [place] Address [address] [place] [address] Care Team Providers Care Chemical Analytical Sampler Name Role Phone MONIKA MOSS Primary Care Provider Assessment No assessment recorded. Plan of Treatment Reminders Order Date Submit Date Provider Last Modified By Organization Details Last Modified Time Details Appointments None recorded. Lab None recorded. Referral None recorded. Procedures None recorded. Surgeries total hysterecto my, laparoscop ic, with bilateral salpingo-o ophorectom y (SURG) 2022 04/17/ [address] [facility], [employer] [address], [place], [address], 15:52:32 Imaging None recorded. Medication Orders None [...] WITH ENDOMETRIAL ABLATION (SURG) completed Ofelia Marquez [facility] 07/06/2023 10:31:53 06/26/20 23 bone marrow sampling completed Naomi Perry [facility] 07/03/2023 12:43:24 12/22/19 23 HYSTEROSCOPY, WITH ENDOMETRIAL ABLATION (SURG) completed Ofelia Marquez [facility] 12/22/2022 10:38:59 12/05/19 23 Endometrial Biopsy completed Derek Wilson MD [address], [place], [address], [facility] 12/05/2022 12:02:42 11/14/19 23 Date of Last Pap Smear completed [facility] 07/03/2023 11:21:33 10/09/19 23 Transfusion bld/bld compnt completed [facility] 07/03/2023 12:48:56 07/09/20 22 bone marrow sampling completed [facility] 07/03/2023 12:43:19 10/09/19 21 kidney biopsy completed [facility] 07/03/2023 12:42:31 10/09/18 99 tonsilectomy/ad enoids completed [facility] 07/03/2023 12:42:14 Imaging Results None recorded. Procedure Notes None recorded. Medical Equipment None Reported. Allergies Allergen ID Allergen Name Allergen Category Reaction Reaction Severity Criticality Documentation Date Start Date Code Code System Note Provider Name and Address Organization Details Recorded Time tetracycl ine medicatio n other moderate Not available 11/14/2022 29547 RxNorm Yasmine toscano, [facility] 14:50:26 Medications Name Sig Start [...] Body mass index (BMI) Body weight Systolic And Diastolic Provider Name and Address Organization Details Last Updated DateTime 01/19/2024 167.64 cm 35.6 kg/m2 01340.76 g 162/98 mm[Hg] Caterina Matosse [facility] 01/19/2024 15:49:22 Date Recorded Body height Body mass index (BMI) Body weight Systolic And Diastolic Provider Name and Address Organization Details Last Updated DateTime 02/01/2024 167.64 cm 34.9 kg/m2 44212.95 g 127/81 mm[Hg] Angelika Matos [facility] 02/01/2024 12:50:20 Date Recorded Body height Body mass index (BMI) Body weight Systolic And Diastolic Provider Name and Address Organization Details Last Updated DateTime 07/03/2023 167.64 cm 42 kg/m2 392944.02 g 133/80 mm[Hg] Naomi Perry [facility] 07/03/2023 12:37:39 Date Recorded Body height Body mass index (BMI) Body weight Systolic And Diastolic Provider Name and Address Organization Details Last Updated DateTime 07/13/2023 167.64 cm 40.7 kg/m2 231276.28 g 136/78 mm[Hg] Sheryl Fernanda [facility] 07/13/2023 14:07:23 Social History Question Answer Notes LastModified by Organizat ion Details LastModified Time Do You Have An Advance Directive? No Information n ot available 11/14/2022 How Many Years Have You Consumed Alcohol? 0 Information not available 11/14/2022 Are You Blind Or Do You Have Difficulty Seeing? No Information not available 11/14/2022 What Is Your Level Of Caffeine Consumption? Moderate Information not available 11/14/2022 In The 14 Days Before Symptom Onset, Have You Had Close Contact With A Laboratory-jaidene franco COVID-19 While That Case Was Ill? No Information n ot available 11/14/2022 In The 14 Days Before [...] Of Diet Are You Following? REGULAR Information n ot available 11/14/2022 What Is The Highest Grade Or Level Of School You Have Completed Or The Highest Degree You Have Received? [id number] Information not available 11/14/2022 Are There Any [...] PPD Information not available 11/14/2022 Do You Use Sunscreen Routinely? No Information not available 11/14/2022 How Many Years Have You Smoked Tobacco? 30 Information not available 11/14/2022 Have You Used IV Drugs? No Information not available 11/14/2022 Do You Have Difficulty Walking Or Climbing Stairs? No [email or web address] Information not available 07/13/2023 Sex: Unknown Functional Status Question Answer Note LastModified by Organizat ion Details LastModified Time Do you use any illicit or recreational drugs? No Information not available 11/14/2022 What is your level of alcohol consumption? None Information not available 11/14/2022 Are you able to walk? YESWOREST Information not available 11/14/2022 Are you able to care for yourself? 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 No Information not available 07/13/2023 What is your exercise level? None Information not available 11/14/2022 Mental Status Question Answer Note LastModified by Organization D etails LastModified Time Do you feel stressed (tense, restless, nervous, or anxious, or unable to sleep at night)? [id number] Information not available 11/14/2022 Family History Relationship Description Onset Age of this Age Resolved Age Notes LastModified by Organization Details LastModified Time Maternal Uncle Diabetes mellitus [email or web address] Not available 07/03 12:37:51 Unspecified Relation Diabetes mellitus [email or web address] Not available 07/03 12:37:51 Paternal Aunt Diabetes mellitus [email or web address] Not available 07/03 12:37:51 Paternal Grandmother Malignant tumor of colon [email or web address] Not available 07/03 12:37:51 Medical History Condition Response Allergies (Food, seasonal, environmental ) N Other Y Breast Cancer N Drug/Latex Allergies/Reactions Y Blood Transfusion Y Dermatologic Disorders Y Lung Disease N Defects or Inherited Disease N Breast Problem N Gestational Diabetes N Hematologic disorders Y Anesthesia Complications N History of STI N Deep Vein Thrombosis Y Polycystic ovary syndrome N Anxiety Disorder N Autoimmune disease Y Arthritis N Infertility N Polyps N Acid Reflux (GERD) N History of abnormal pap N Cancer Y Stroke N Varicosities N Neurologic/Epilepsy N Endometriosis N High Cholesterol Y Headaches N Fibromyalgia N Kidney Disease Y Heart Problems N Kidney or Bladder Problems Y Thyroid Problems N GI Problems N Eating Disorder N Anemia [...] SNOMED-CT Code Diagnosis ICD10 Code Diagnosis Note [id number] JAZMYN Prado [place] [address] [address] 11/14/2022 14:26:11 11/14/2022 17:50:32 Abnormal uterine bleeding 7246232058 9100 N93.9 Today we reviewed a detailed [...] SOB, leg pain, etc)u/s f/u scheduled with for consultDis cussed need for EMB/furthe r testing pending u/s result BP elevated. No symptoms. She will f/u with PCP for BP check. Time spent in visit is a total of 30 mins with at least 50% of visit consisting of counseling and review of plan of care. Venereal d isease screening 855954570 Z11.3 Screening for malignant neoplasm of cervix 393161047 Z12.4 [id number] Derek Wilson MD [place] [address] [address] 11/24/2022 16:21:13 11/24/2022 17:03:29 Abnormal uterine bleeding 4253489858 9100 N93.9 [id number] Derek Wilson MD [place] [address] [address] 12/05/2022 11:00:58 12/05/2022 12:10:21 Menorrhagia 323429478 N92.0 Lesion of endometrium 92 73734166 9101 N85.9 informed patient of vulvar lesions [...] biopsy well. Was performed without complicati ons. [id number] [facility] [address] [address] 12/16/2022 14:18:51 12/16/2022 15:17:41 Menorrhagia 659529006 N92.[address] Wilson today prior to patient leaving as this situation is out of my scope of practice in acuity. He has agreed to see her & continue to manage her care today.Deborah ent sent upstairs and appropriat e staff was alerted to her situation & change in provider she is seeing today. [id number] Derek Wilson MD [place] [address] [address] 12/16/2022 15:21:22 12/16/2022 17:46:01 Abnormal uterine bleeding 3298058473 9100 N93.9 Menorrhagia 893764183 N9 2.0 This patient is a 52-year-ol [...] procedure. We agreed to move forward Anemia 302200798 D64.9 [id number] Derek Wilson MD [place] [address],[place] [address] 12/16/2022 17:21:41 12/19/2022 15:25:58 Abnormal uterine bleeding 2135684106 9100 N93.9 [id number] Derek Wilson MD [place] [address],[place] [address] 12/26/2022 10:20:38 12/26/2022 15:13:28 [id number] Derek Wilson MD [place] [address],[place] [address] 12/29/2022 11:36:42 12/29/2022 12:27:49 Menorrhagia 784718992 N92.0 This patient is a 52-year-ol d female who presents for follow-up on menorrhagi a. We performed endometria l ablation. She has watery vaginal discharge. She is recovering normally. She is still on Eliquis. She will see her hematologi st in a few weeks. [id number] Derek Wilson MD [place] [address],[place] [address] 04/28/2023 14:18:00 04/28/2023 15:14:24 Menorrhagia 757823765 N92.0 This patient is a 52-year-ol d [...] face-to-fa ce. More than 50% was counseling [id number] Derek Wilson MD [place] [address],[place] [address] 06/15/2023 16:14:22 06/16/2023 12:28:34 Menorrhagia 293418536 N92.0 52-year-ol d female with severe menorrhagi [...] not have any bleeding in the more. [id number] Derek Wilson MD [place] [address],[place] [address] 07/03/2023 12:24:04 07/03/2023 14:53:16 Menorrhagia 392672890 N92.0 this patient is a 52-year-ol d female with menorrhagi a. We have agreed to perform endometria l ablation. She understand s the risks, benefits, and alternativ es. She has completed the informed consent process is ready to proceed. [id number] Derek Wilson MD [place] [address],[place] [address] 07/06/2023 09:59:17 07/06/2023 10:00:03 [id number] Derek Wilson MD [place] [address],[place] [address] 07/13/2023 13:45:09 07/13/2023 14:34:11 Abnormal uterine bleeding 0924341365 9100 N93.9 Menorrhagia 952936749 N9 2.0 this patient is a 52-year-ol [...] ic hysterecto my bilateral salpingo-o ophorectom y. [id number] Derek Wilson MD [place] [address] [address] 01/19/2024 15:42:39 01/20/2024 10:38:12 Menorrhagia 991008298 N92.0 this patient is a 52-year-ol d female with severe menorrhagi a. We will perform total laparoscop ic hysterecto my bilateral salpingo-o ophorectom y. she understand s the risks, benefits, and alternativ es. She is completed the informed consent process and is ready to proceed. [id number] Derek Wilson MD [place] [address] [address] 02/01/2024 12:42:03 02/01/2024 16:24:50 Postoperative care 725502256 Z48.89 female Patient presents for postop follow-up. [...] Blanco Member ID Guarantor Name 07/03/2023 1 [facility] (MEDICARE REPLACEMENT/A DVANTAGE - PPO) [id number] Nicole A Soens [id number] Nicole Soens 07/03/2023 2 [place] [facility] Nicole A Soens [id number] Nicole Soens 07/05/2023 1 [facility] (MEDICARE REPLACEMENT/A DVANTAGE - PPO) [id number] Nicole A Soens [id number] Nicole Soens 07/05/2023 2 [place] [facility] Nicole A Soens [id number] Nicole Soens 07/13/2023 1 [facility] (MEDICARE REPLACEMENT/A DVANTAGE - PPO) [id number] Nicole A Soens [id number] Nicole Soens 07/13/2023 2 [place] [facility] Nicole A Soens [id number] Nicole Soens 01/19/2024 1 [facility] (MEDICARE REPLACEMENT/A DVANTAGE - PPO) [id number] Nicole A Soens [id number] Nicole Soens 02/01/2024 1 [facility] (MEDICARE REPLACEMENT/A DVANTAGE - PPO) [id number] Nicole A Soens [id number] Nicole Soens Notes Date Note Type Note [...] infection Derek Wilson MD [address], [place], [address], [facility] 07/03/2023 14:48:46 07/13/2023 text/html this patient [...] hysterectomy in detail. We spent 40 minutes [id number] discussing the details of hysterectomy, her bleeding, treatment options. We made a decision to perform surgery. We will perform total laparoscopic hysterectomy bilateral salpingo-oophorect daisy. Derek Wilson MD [address], [place], [address], [facility] 07/13/2023 14:34:01 01/19/2024 text/html 53-year-old fema [...] infection. Derek Wilson MD [address], [place], [address], [facility] 01/19/2024 16:47:26 02/01/2024 text/html female Patient presents for postop follow-up. She is 1 week postop from a total laparoscopic hysterectomy bilateral salpingo oophorectomy. She has no complaints. Her incisions are clean dry and intact. She is recovering normally. She will follow-up as needed. Derek Wilson MD [address], [place], [address], [facility] 02/01/2024 16:05:40 OBGyn Episode Ob Episode Information Episode Created Date Number of Fetuses Patient Bloodtype Patient rh Status Prepregnancy Weight lbs Domestic Partner Domestic Partner Phone Father Name Peer Educator Status 11/14/19 23 1 CLOSED Fetus Data First Name Last Name Admitted to NICU Weight (g) Sex Living Outcome Pediatric Complications Fetus ID Race Codes Race Delivery Type 3231.84 3 F Prematur e [id number] Vaginal Delivery Vijay Calculation Initial Vijay Date [...] Domestic Partner Domestic Partner Phone Father Name Peer Educator Status 07/03/20 23 1 CLOSED Fetus Data First Name Last Name Admitted to NICU Weight (g) Sex Living Outcome Pediatric Complications Fetus ID Race Codes Race Delivery Type , Induced [id number] Vijay Calculation Initial Vijay Date Initial Exam [...]
--- OUTSIDE RECORDS SUMMARY | 2025-03-04 22:13 | XMS_ITS | Encounter Summary ---
Author Organization [facility] Address [address] [place] [address] Phone Care Team Providers Care Engineering Intern Name Role Phone Flynn Ma MD Unavailable [phone] Ari Elmore DO Primary Care Provider Colleen Diaz MD Unavailable Derek Wilson MD Unavailable [phone] Mar Jay MD Unavailable Mitch Austin DO Unavailable [phone] Mor Blancas MD Primary Care Provide r Madelyn Vicente MD PhD Unavailable [phone] Eric Washington MD Unavailable [phone] Encounter Details Date Type Department Care Team [...] on file 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 Gender Identity Female 03/14/2022 6:19 PM CDT [...] documented as of this encounter Care Teams Engineering Intern Relationship Specialty Start Date End Date Ari Elmore DO [address] [place] [address] PCP - General Family Medicine 12/16/20 03/24/24 Mor Blancas MD [address] [place] [address] PCP - General Emergency Medicine 03/25/24 Flynn Ma MD [address] [facility] [address] [place] [address] Medical Oncologist/Jewel Lathe Operator Medical Oncology 09/28/18 Colleen Diaz MD [address] [place] [address] Referring Physician Nephrology 03/24/22 Derek Wilson MD [address] [place] [address] Referring Physician Obstetrics and Gynecology 06/26/23 Mar Jay MD [address] [place] [address] Surgeon Vascular Surgery 08/24/23 Mitch Austin DO [address] [facility] [address] [place] [address] Surgeon Surgery 09/26/23 Madelyn Vicente MD PhD [address] [facility] [address] [place] [address] Registered Nurse Vascular Surgery 07/05/24 Eric Washington MD [address] [place] [address] Consulting Physician Plastic Surgery 07/29/24 documented as of this encounter
--- OUTSIDE RECORDS SUMMARY | 2025-03-04 22:13 | XMS_ITS | Encounter Summary ---
Author Organization [facility] Address [address] [place] [address] Phone Care Team Providers Care Appeals Representative Name Role Phone Flynn Ma MD Unavailable [phone] Colleen Diaz MD Unavailable Derek Wilson MD Unavailable [phone] Mar Jay MD Unavailable [phone] Mitch Austin DO Unavailable [phone] Mor Blancas MD Primary Care Provide r Madelyn Vicente MD PhD Unavailable [phone] Eric Washington MD Unavailable [phone] Encounter Details Date Type Department Care Team (Late st Contact Info) Description 03/04/2025 Orders Only [facility] Hematology [address] [facility] [place] [facility] [address] [place] [address] Stephani Robertson Acute lower limb ischemia (Primary Dx) Social History Tobacco Use Types Packs/Day Years Used Date Smoking Tobacco: Former Cigarettes 1 37.5 1 987 - 04/08/2024 Passive Smoke Exposure: Past Smokeless Tobacco: Never Comments:cutting down 4-6 a day Alcohol Use Standard Drinks/Week Comments No 0 (1 standard drink = 0.6 oz pur e alcohol) [facility] Utilities Answer Date Recorded In the past 12 months has th e electric, gas, oil, or water [employer] threatened to shut off services in your [...] often do you attend chur ch or church services? Never 12/16/2024 Do you belong to [...] any time in the past [address] [facility], were you homeless or living in a prison (including now)? No 12/16/2024 Personal Safety Answer Date Recorded Have you ever been in or are you currently in a harmful physical or emotional relationship or is someone making you feel afraid or unsafe? 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 Gender Identity Female 03/14/2022 6:19 PM CDT Sexual Orientation Not on file documented as of this encounter Plan of Treatment Not on file documented as of this encounter Visit Diagnoses Diagnosis Acute lower limb ischemia- Primary documented in this encounter Orders Appointment Requests Count Last Ordered Date Fi rst Ordered Date ONCBCN LAB APPOINTMENT 1 03/04/2025 documented in this encounter Additional Health Concerns Infection Onset Date Last Indicated Resolved Time MDR gram neg/ESBL 07/23/2024 08/01/2024 documented as of this encounter Care Teams Appeals Representative Relationship Specialty Start Date End Date Mor Blancas MD [address] [place] [address] PCP - General Emergency Medicine 03/25/24 Flynn Ma MD [address] [facility] [address] [place] [address] Medical Oncologist/Resistance Machine Welder Setter Medical Oncology 09/28/18 Colleen Diaz MD [address] [place] [address] Referring Physician Nephrology 03/24/22 Derek Wilson MD [address] [place] [address] Referring Physician Obstetrics and Gynecology 06/26/23 Mar Jay MD [address] [place] [address] Surgeon Vascular Surgery 08/24/23 Mitch Austin DO [address] [place] [address] [place] [address] Surgeon Surgery 09/26/23 Madelyn Vicente MD PhD [address] [facility] [address] [place] [address] Registered Nurse Vascular Surgery 07/05/24 Eric Washington MD [address] [place] [address] Consulting Physician Plastic Surgery 07/29/24 documented as of this encounter
--- NOTE | 2025-03-04 22:15 | ED.GENADULT ---
HPI - General Adult General Chief complaint: Skin/Abscess/Foreign Body Stated complaint: Bug Bite Time Seen by Provider: 03/04/25 22:15 Source: patient and family Mode of arrival: ambulatory Limitations: no limitations History of Present Illness HPI narrative: 54 years old white female came to the ED with possible insect bite at the right thigh laterally felt it at 5:30 a.m., could not see any insect at that time. 14 hours later patient was outdoors playing with the dog started feeling swelling of the hands and slight shortness of breath and some tenderness right side of the throat. History of allergy. Patient denies any fever or chills, nausea or vomiting or abdominal pain or diaphoresis or fever or chills. Patient is not diabetic. Related Data Home Medications ?Medication ?Instructions ?Recorded ?Confirmed ?Last Taken ?Type apixaban 5 mg tablet (Eliquis) 5 mg PO BID 09/29/23 02/03/25 12/25/23 History aspirin 81 mg tablet,delayed 81 mg PO DAILY 08/20/24 02/03/25 Unknown History release amlodipine 10 mg tablet (Norvasc) 10 mg PO DAILY 11/29/24 02/03/25 Unknown History lisinopril 10 mg tablet 10 mg PO DAILY 11/29/24 02/03/25 Unknown History ondansetron 4 mg disintegrating See Rx Instructions .Route 02/03/25 02/03/25 Unknown History tablet .COMPLEX PRN Allergies Allergy/AdvReac Type Severity Reaction Status Date / Time gentian jake Allergy Rash Verified 02/03/25 13:31 Review of Systems Review of Systems: All systems reviewed & are unremarkable except as noted in HPI and below PMFSH Past Medical History Medical History Cholelithiasis Adenomyosis of the uterus History of blood transfusion UTI (urinary tract infection) JOANN (generalized anxiety disorder) GERD (gastroesophageal reflux disease) Dysuria Post-op pain Vaginal bleeding Raynauds syndrome (06/05/18) UTI (urinary tract infection) Gout Pyoderma gangrenosa History of arterial occlusion Obesity Nicotine dependence, cigarettes, uncomplicated Superficial granulomatous pyoderma DVT (deep venous thrombosis) RLE - resolved as on 09/29/23 Hypertension Vasculitis CLL (chronic lymphocytic leukemia) Surgical History Surgical History H/O angioplasty History of laparoscopic cholecystectomy 10/01/23 SAW S/P laparoscopic cholecystectomy History of adenoidectomy Hx of tonsillectomy Family History Family History Father CHF (congestive heart failure) Grandparent Colon cancer Sibling Pancreatic cancer Sibling Pancreatic cancer Other Cerebrovascular accident Heart disease Hypertension Kidney disease Social History Social History Smoking packs per day: 0.5 Smoking cigarettes per day: 10.0 Years smoked: 38 Smoking pack-years: 19.00 Smoking status: Former smoker Tobacco type: cigarettes Second hand tobacco smoke exposure: Yes Smoking end date: 04/08/24 Alcohol intake: never Substance use: never Substance use type: does not use Other substance usage details: IN HER 20'S Do You Feel Safe in your Home?: Yes Lack of Transportation: No Lack of Food: Never True Current Housing: I Have Housing Concerned About Future Housing: No Difficulty Paying Gas/Electric Bills: No Difficulty Paying for Meds: No Currently Unemployed: No Education: Associate Degree Difficulty w/ Childcare or Family Care: No Living arrangements: with family Additional living arrangements comments: DAUGHTER Occupation/Education: occupation Additional occupation/education comments: [employer] Spiritual care concerns: No Exam Narrative: General appearance: Well-developed, well-nourished Skin: Normal color, 4 x 3 cm dark skin at the right thigh laterally, warm to touch, surrounded by 3 mm erythema around, no discharge, no blisters , slightly tender Head: Normocephalic, nontraumatic Eyes: Clear conjunctiva ENT: Oropharynx normal, ears normal, nose normal Neck: Supple, nontender Chest and respiratory: Airway patent, no respiratory distress, no accessory muscle use Heart: Regular rate/rhythm Abdomen: Soft, nontender, no organomegaly, quiet bowel sounds Vascular: Normal peripheral pulses, normal capillary refill. Musculoskeletal: Normal range of motion, nontender back Neurologic: Alert and oriented ?3, HYDROGEOLOGY PROFESSOR is normal as tested, no gross motor deficit Course Vital Signs Vital signs: Vital Signs Temperature 36.8 C 03/04/25 22:13 Pulse Rate 71 03/04/25 22:13 Respiratory Rate 15 03/04/25 22:13 Blood Pressure 174/92 H 03/04/25 22:13 Pulse Oximetry 96 03/04/25 22:13 Oxygen Delivery Room Air 03/04/25 22:13 Temperature 36.8 C 03/04/25 22:13 Pulse Rate 71 03/04/25 22:13 Respiratory Rate 15 03/04/25 22:13 Blood Pressure 174/92 H 03/04/25 22:13 Pulse Oximetry 96 03/04/25 22:13 Oxygen Delivery Room Air 03/04/25 22:13 Medical Decision Making MDM Narrative Medical decision making narrative: patient came to the ED with insect bite at the right thigh, + generalized allergic reaction including swelling hands and slight shortness of breath and itching. No blood workup or imaging are required at this time. Differential diagnosis insect bite with bacterial infection and localized allergic reaction, possible generalized allergic reaction secondary to outdoors activity and playing with block. In the ED patient received 60 mg prednisone p.o. 3 mg of epinephrine IM and 50 mg of Benadryl p.o.. Discharged on Keflex, prednisone and Zyrtec Differential Diagnosis Differential Diagnosis: as above Vital Signs Vital Signs: Vital Signs Temperature 36.8 C 03/04/25 22:13 Pulse Rate 71 03/04/25 22:13 Respiratory Rate 15 03/04/25 22:13 Blood Pressure 174/92 H 03/04/25 22:13 Pulse Oximetry 96 03/04/25 22:13 Oxygen Delivery Room Air 03/04/25 22:13 Temperature 36.8 C 03/04/25 22:13 Pulse Rate 71 03/04/25 22:13 Respiratory Rate 15 03/04/25 22:13 Blood Pressure 174/92 H 03/04/25 22:13 Pulse Oximetry 96 03/04/25 22:13 Oxygen Delivery Room Air 03/04/25 22:13 Critical Care Time Critical Care Time Critical Care Time: No Discharge Plan Discharge Clinical Impression: Insect bite, Allergic reaction Patient Disposition: Home Condition: Improved Instructions: Antibiotic Form, Insect Bite or Sting (ED), General Allergic Reaction (ED) Additional Instructions: Return if symptoms are worsening , call your family physician for appointment within 3-5 days, take Tylenol as as needed for aches and pain, continue home medications. Patient Language: Pakistani Prescriptions: New prednisone 20 mg tablet 40 mg PO DAILY 5 Days Qty: 10 0RF Zyrtec 10 mg capsule 10 mg PO BID PRN (Reason: allergy symptoms) Qty: 20 0RF cephalexin 500 mg capsule 500 mg PO Q6H 7 Days Qty: 28 0RF No Action aspirin 81 mg tablet,delayed release (DR/EC) 81 mg PO DAILY lisinopril 10 mg tablet 10 mg PO DAILY amlodipine [Norvasc] 10 mg tablet 10 mg PO DAILY ondansetron 4 mg tablet,disintegrating See Rx Instructions .ROUTE .COMPLEX PRN Dose Instruction: DISSOLVE ONE TABLET ON THE TONGUE EVERY EIGHT HOURS NEEDED FOR NAUSEA AND VOMITING FOR FIVE DAYS Rx Instructions: DISSOLVE ONE TABLET ON THE TONGUE EVERY EIGHT HOURS NEEDED FOR NAUSEA AND VOMITING FOR FIVE DAYS PRN; eszopiclone [Lunesta] 1 mg tablet 1 mg PO QHS Qty: 30 0RF methylprednisolone [Medrol (Laci)] 4 mg tablets,dose pack See Rx Instructions PO PER PKG DIR Qty: 21 0RF Rx Instructions: PO PER PKG DIR for 6 days azelastine 137 mcg (0.1 %) spray,non-aerosol 1 spray intranasal BID Qty: 30 0RF Rx Instructions: administer into each nostril amoxicillin-pot clavulanate 875-125 mg tablet 1 tablet PO BID Qty: 20 0RF Eliquis 5 mg tablet 5 mg PO BID allopurinol 100 mg tablet See Rx Instructions .ROUTE .COMPLEX Qty: 180 11RF Dose Instruction: TAKE ONE TABLET (100 MG) BY MOUTH TWICE DAILY Rx Instructions: TAKE ONE TABLET (100 MG) BY MOUTH TWICE DAILY atorvastatin [Lipitor] 40 mg tablet 40 mg PO DAILY Qty: 90 2RF metoprolol succinate 50 mg tablet extended release 24 hr See Rx Instructions .ROUTE .COMPLEX Qty: 90 2RF Dose Instruction: TAKE ONE TABLET (50MG) BY MOUTH DAILY Rx Instructions: TAKE ONE TABLET (50MG) BY MOUTH DAILY alprazolam [Xanax] 0.5 mg tablet 0.5 mg PO BID PRN (Reason: anxiety) Qty: 30 0RF Follow-up/Referrals: Mor Blancas MD [Primary Care Provider] -
[2025-03-04] MEDS: predniSONE 20 MG TABLET 60 MG PO (22:34)
[2025-03-04] MEDS: EPINEPHrine HCL INJ 1 MG/ML AMPUL 0.3 MG IM (22:35)
[2025-03-04] MEDS: diphenhydrAMINE HCl CAP 25 MG CAPSULE 50 MG PO (22:35)
[2025-03-04] MEDS: CEPHALEXIN 500 MG CAPSULE PO (22:35)
[2025-03-04 22:45] VITALS: BP 139/76; PULSE 58; RESP 18; O2SAT 97
--- OUTSIDE RECORDS SUMMARY | 2025-03-04 22:45 | XMS_ITS | Encounter Summary ---
Author Organization [facility] Address [address] [place] [address] Phone Care Team Providers Care Facility Maintenance Worker Name Role Phone Flynn Ma MD Unavailable [phone] Ari Elmore DO Primary Care Provider Colleen Diaz MD Unavailable Derek Wilson MD Unavailable [phone] Mar Jay MD Unavailable [phone] Mitch Austin DO Unavailable [phone] Mor Blancas MD Primary Care Provide r Madelyn Vicente MD PhD Unavailable [phone] Eric Washington MD Unavailable [phone] Encounter Details Date Type Department Care Team [...] on file 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 DOCTOR OF CHIROPRACTIC Gender Identity Female 03/14/2022 6:19 PM CDT [...] documented as of this encounter Care Teams Facility Maintenance Worker Relationship Specialty Start Date End Date Ari Elmore DO [address] [place] [address] PCP - General Family Medicine 12/16/20 03/24/24 Mor Blancas MD [address] [place] [address] PCP - General Emergency Medicine 03/25/24 Flynn Ma MD [address] [facility] [address] [place] [address] Medical Oncologist/College Or University Business Manager Medical Oncology 09/28/18 Colleen Diaz MD [address] [place] [address] Referring Physician Nephrology 03/24/22 Derek Wilson MD [address] [place] [address] Referring Physician Obstetrics and Gynecology 06/26/23 Mar Jay MD [address] [place] [address] Surgeon Vascular Surgery 08/24/23 Mitch Austin DO [address] [facility] [address] [place] [address] Surgeon Surgery 09/26/23 Madelyn Vicente MD PhD [address] [facility] [address] [place] [address] Registered Nurse Vascular Surgery 07/05/24 Eric [place] MD [address] [place] [address] Consulting Physician Plastic Surgery 07/29/24 documented as of this encounter
--- OUTSIDE RECORDS SUMMARY | 2025-03-04 22:45 | XMS_ITS | Encounter Summary ---
Author Organization [facility] Address [address] [place] [address] Phone Care Team Providers Care Paper Cup Handle Machine Operator Name Role Phone Flynn Ma MD Unavailable [phone] Ari Elmore DO Primary Care Provider Colleen Diaz MD Unavailable Derek Wilson MD Unavailable [phone] Mar Jay MD Unavailable Mitch Austin DO Unavailable [phone] Mor Blancas MD Primary Care Provide r Madelyn Vicente MD PhD Unavailable [phone] Eric Washington MD Unavailable [phone] Encounter Details Date Type Department Care Team [...] on file 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 PIZZAMAKER Gender Identity Female 03/14/2022 6:19 PM CDT [...] documented as of this encounter Care Teams Paper Cup Handle Machine Operator Relationship Specialty Start Date End Date Ari Elmore DO [address] [place] [address] PCP - General Family Medicine 12/16/20 03/24/24 Mor Blancas MD [address] [place] [address] PCP - General Emergency Medicine 03/25/24 Flynn Ma MD [address] [facility] [address] [place] [address] Medical Oncologist/Dietetic Tech Medical Oncology 09/28/18 Colleen Diaz MD [address] [place] [address] Referring Physician Nephrology 03/24/22 Derek Wilson MD [address] [place] [address] Referring Physician Obstetrics and Gynecology 06/26/23 Mar Jay MD [address] [place] [address] Surgeon Vascular Surgery 08/24/23 Mitch Austin DO [address] [address] Surgeon Surgery 09/26/23 Madelyn Vicente MD PhD [address] [facility] [address] [place] [address] Registered Nurse Vascular Surgery 07/05/24 Eric [place] MD [address] [place] [address] Consulting Physician Plastic Surgery 07/29/24 documented as of this encounter
--- OUTSIDE RECORDS SUMMARY | 2025-03-04 22:45 | XMS_ITS ---
Author Organization [facility] Address [address] [place] [address] Care Team Providers Care Tool Specialist Name Role Phone Flynn Ma MD Unavailable [phone] Colleen Diaz MD Unavailable Derek Wilson MD Unavailable [phone] Mar Jay MD Unavailable [phone] Mitch Austin DO Unavailable [phone] Mor Blancas MD Primary Care Provide r Madelyn Vicente MD PhD Unavailable [phone] Eric Washington MD Unavailable [phone] Active Problems Problem Noted Date Diagnosed Date [...] underwent emergent OR s/p thrombectomy of R REFUSE DRIVER, bypass graft, below knee popliteal. R groin [...] 07/02/2024 Assessment & Plan (10/16/2024 2:41 PM TABLE ATTENDANT): Has chronic abdominal pain due to likely [...] ordered Assessment & Plan (10/16/2024 2:42 PM TABLE ATTENDANT): Hx RLE arterial occlusion/DVT 07/2023; h/o splenic [...] 07/01/2024 Assessment & Plan (10/16/2024 2:40 PM TABLE ATTENDANT): Patient with previous right lower extremity bypass [...] 07/22: emergent OR s/p thrombectomy of R REFUSE DRIVER, bypass graft, below knee popliteal. R groin [...] 06/26/2023. Held Plavix/Eliquis due to bleeding. - Playground Director consult on 08/08 - Hold home medication [...] with [facility]. Current Treatment and Therapy Plans No current [...] 06/0 12/2023 Overview (08/07/2023): Recently hospitalized at [place] for pyelonephritis. Discharged on Keflex (08/01-08/10). - Continue cephalexin 500 mg BID. Assessment & Plan (08/07/2023 10:53 PM CDT): Recently hospitalized at [place] for pyelonephritis. Discharged on Keflex (08/01-08/10). - Continue cephalexin 500 mg BID. Flu vaccine need 09/07/2022 08/07/2023 Dehydration 06/27/2022 08/07/2023 Immunocompromised 05/18/2022 08/07/2023
--- OUTSIDE RECORDS SUMMARY | 2025-03-04 22:45 | XMS_ITS | Encounter Summary ---
Author Organization [facility] Address [address] [place] [address] Phone Care Team Providers Care It Applications Developer Name Role Phone Flynn Ma MD Unavailable [phone] Ari Elmore DO Primary Care Provider Colleen Diaz MD Unavailable Derek Wilson MD Unavailable [phone] Mar Jay MD Unavailable Mitch Austin DO Unavailable [phone] Mor Balncas MD Primary Care Provide r Madelyn Vicente MD PhD Unavailable [phone] Eric Washington MD Unavailable [phone] Encounter Details Date Type Department Care Team [...] on file 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 TECHNICAL SALES CONSULTANT Gender Identity Female 03/14/2022 6:19 PM CDT [...] documented as of this encounter Care Teams It Applications Developer Relationship Specialty Start Date End Date Ari Elmore DO [address] [place] [address] PCP - General Family Medicine 12/16/20 03/24/24 Mor Blancas MD [address] [place] [address] PCP - General Emergency Medicine 03/25/24 Flynn Ma MD [address] [facility] [address] [place] [address] Medical Oncologist/General Passenger Agent Medical Oncology 09/28/18 Colleen Diaz MD [address] [place] [address] Referring Physician Nephrology 03/24/22 Derek Wilson MD [address] [place] [address] Referring Physician Obstetrics and Gynecology 06/26/23 Mar Jay MD [address] [place] [address] Surgeon Vascular Surgery 08/24/23 Mitch Austin DO [address] [address] Surgeon Surgery 09/26/23 Madelyn Vicente MD PhD [address] [facility] [address] [place] [address] Registered Nurse Vascular Surgery 07/05/24 Eric [place] MD [address] [place] [address] Consulting Physician Plastic Surgery 07/29/24 documented as of this encounter
--- OUTSIDE RECORDS SUMMARY | 2025-03-04 22:45 | XMS_ITS | Clinical Summary ---
Author Organization [facility] Address [address] [place] [address] Care Team Providers Care Deburring Technician Name Role Phone Flynn Ma MD Unavailable [phone] Colleen Diaz MD Unavailable Derek Wilson MD Unavailable [phone] Mar Jay MD Unavailable [phone] Mitch Austin DO Unavailable [phone] Mor Blancas MD Primary Care Provide r Madelyn Vicente MD PhD Unavailable [phone] Eric Washington MD Unavailable [phone] Allergies Active Allergy Reactions Criticality Noted Date [...] underwent emergent OR s/p thrombectomy of R CITY ENGINEER, bypass graft, below knee popliteal. R groin [...] 07/02/2024 Assessment & Plan (10/16/2024 2:41 PM ONION TOPPER): Has chronic abdominal pain due to likely [...] ordered Assessment & Plan (10/16/2024 2:42 PM ONION TOPPER): Hx RLE arterial occlusion/DVT 07/2023; h/o splenic [...] 07/01/2024 Assessment & Plan (10/16/2024 2:40 PM ONION TOPPER): Patient with previous right lower extremity bypass [...] 07/22: emergent OR s/p thrombectomy of R CITY ENGINEER, bypass graft, below knee popliteal. R groin [...] 06/26/2023. Held Plavix/Eliquis due to bleeding. 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 Follows with [facility]. Resolved Problems Problem Noted Date Diagnosed Date Resolved Date Urinary tract infection 08/07/2023 06/0 12/2023 Overview (08/07/2023): Recently hospitalized at [place] for pyelonephritis. Discharged on Keflex (08/01-08/10). - Continue cephalexin 500 mg BID. Assessment & Plan (08/07/2023 10:53 PM CDT): Recently hospitalized at [place] for pyelonephritis. Discharged on Keflex (08/01-08/10). - Continue cephalexin 500 mg BID. Flu vaccine need 09/07/2022 08/07/2023 Dehydration 06/27/2022 08/07/2023 Immunocompromised 05/18/2022 08/07/2023 Encounters Date Type Department Care Team Description 03/04/2025 Orders Only [facility] Hematology [address] 6 [place] [id number] Stephani Robertson Acute lower limb ischemia (Primary Dx) 01/30/2025 Telephone [facility] Pre Anesthesia Testing [address] [place] [address] Karen Delarosa 01/20/2025 Orders Only [facility] Surgery [address] [facility] Floor 1 [place] [address] Madelyn Vicente MD PhD 01/17/2025 Telephone [facility] Surgery [address] [facility] Floor 1 [place] [address] Greg Kat CMA 01/17/2025 Orders Only [facility] Surgery [address] [facility] Floor 1 [place] [address] Madelyn Vicente MD PhD Encounter for surgical aftercare following surgery on the circulatory system (Primary Dx); Presence of other vascular implants and grafts 01/16/2025 Telephone [facility] Surgery [address] [facility] Floor 1 [place] [address] Greg Kat CMA 01/09/2025 Orders Only [facility] Oncology [facility] [place] [address] Mireya Briceno RN Iron deficiency anemia, unspecified iron deficiency anemia type (Primary Dx) 01/08/2025 11:20 AM CDT Lab [facility] [address] [place] [address] Anemia, unspecified type 01/08/2025 9:15 AM CDT Office Visit [facility] Surgery [facility] 8th [place] [address] [place] [address] Madelyn Vicente MD PhD Atherosclerosis of [place] lag[place] arteries of extremities with intermittent claudication, bilateral legs (Primary Dx); Critical limb ischemia of right lower extremity (HCC) 01/02/2025 3:15 PM CDT Ancillary Procedure [facility] Vascular Lab at the [facility] [address] [place] [address] 8th [place] [address] [place] [address] Encounter for surgical aftercare following surgery on the circulatory system; Presence of other vascular implants and grafts 12/30/2024 Orders Only [facility] Surgery [address] [facility] Floor 1 [place] [address] Madelyn Vicente MD PhD Encounter for surgical aftercare following surgery on the circulatory system (Primary Dx); Presence of other vascular implants and grafts 12/27/2024 Documentation [facility] Oncology [address] [place] [address] January, RMA Appointment 12/19/2024 7:39 AM CDT Anesthesia Event [facility] Operating Room 1 [place] [address] Justin Jose MD PhD Carver, Shea Elizabeth, MD 12/19/2024 7:30 AM CDT - 12/19/2024 10:05 AM CDT Surgery [facility] Operating Room 1 [place] [address] Claude Garza MD Angiogram 12/19/2024 Orders Only [facility] Hematology [address] [facility] 6 [place] [address] Manasa Quiroz NP Hospital discharge follow-up (Primary Dx) 12/17/2024 10:05 AM CDT Ancillary Procedure [facility] Lab IP [address] [facility] [address] [place] [address] 12/16/2024 1:30 PM CDT - 12/16/2024 5:30 PM CDT Surgery [facility] Operating Room 1 [place] [address] Claude Garza MD FEMORAL EMBOLECTOMY/THROMBECTO MY- suction thrombectomy with Penumbra and RLE angiogram 12/16/2024 1:26 PM CDT Anesthesia Event [facility] Operating Room 1 [place] [address] Naman Magaña MD Dippolito, Jenny Irene, NP 12/13/2024 6:34 PM ONION TOPPER - 12/19/2024 3:34 PM CDT Hospital Encounter [address] [address] Fatimah Glover MD Rubin, Brian G., MD Critical limb ischemia of right lower extremity (HCC) (Primary Dx); Cold right foot; Arterial occlusion Discharge Disposition: Discharge to home or self care 12/13/2024 10:30 AM ONION TOPPER - 12/13/2024 11:59 PM ONION TOPPER Hospital Encounter [facility] ([facility]) [address] [place] [address] Discharge Disposition: Discharge to home or self care 12/13/2024 10:29 AM ONION TOPPER - 12/13/2024 11:59 PM ONION TOPPER Hospital Encounter [facility] [place] [facility] ([facility]) [address] [place] [address] Discharge Disposition: Discharge to home or self care 12/13/2024 Telephone [facility] Surgery [address] [facility] Floor 1 [place] [address] Greg Kat [facility] 12/13/2024 Documentation [facility] Vascular Surgery [address] [place] [address] Office Building [address] [place] [address] Madelyn Vicente MD PhD 12/13/2024 Telephone [facility] Surgery [address] [facility] Floor 1 [place] [address] Greg Kat [facility] 12/12/2024 Telephone [facility] Vascular Surgery [address] [place] [address] 3 [address] [place] [address] Franco Robertson, [facility] from Last 3 Months Immunizations Immunization Administration [...] RLE angiogram; Surgeon: Claude Garza MD; Location: [facility] OR POD 3; Service: Vascular; Laterality: Right; RLE angiogram, bypass graft thrombectomy Medical devices from this surgery are in the Medical Devices section. VASCULAR SURGERY PROCEDURE 12/16/2024 Lower Extremit y/Right Procedure: Thrombectomy of right lower extremity bypass graft and femoral artery; Surgeon: Claude Garza MD; Location: [facility] OR POD 3; Service: Vascular; Laterality: Right; [...] drink = 0.6 oz pur e alcohol) [facility] Utilities Answer Date Recorded In the past 12 months has [employer], gas, oil, or water [employer] threatened to shut off services in your [...] any clubs o r organizations such as yarsanism groups, unions, fraternal or athletic groups, or [...] in the past 12 m [facility], were you homeless or living [...] on file 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 ONION TOPPER Gender Identity Female 03/14/2022 6:19 PM CDT [...] 07/22/2024, 07/15/2024 Medical Devices Implanted Type Area Reversal Print Inspector Device Identifier Shelf Expiration Date Model / Serial / Lot Fullscreen Riki Patch Vascuguard 0.88cm [id number] - [id number] Implanted:Qty : 1 on 07/01/2024 by Madelyn Vicente MD PhD at [facility] Other - see comments Right: Common Femoral Artery [employer] Riki [id number] 10/02/2025 [id number] / / [id number]- [id number] [employer] Riki Stent Peripheral [id number] m 6fr Self-Expandin g Blue Strl [id number] 30 - S00 - [id number] Implanted:Qty : 1 on 12/16/2024 by Claude Garza MD at [facility] Stent Right: Femoral [employer] Riki [id number] 05/20/2029 [id number] / / [id number] [employer] Riki Stent Peripheral [id number] m 6fr Self-Expandin g Blue Strl [id number] 30 - S00 - [id number] Implanted:Qty : 1 on 12/16/2024 by Claude Garza MD at [facility] Stent Right: Femoral [employer] Riki [id number] 05/20/2029 [id number] / [id number] Dunn V[employer] System Closure Repair Femoral Artery Suture Mediated Perclose Prostyle 24766-25 - [id number] Implanted:Qty : 1 on 12/16/2024 by Claude Garza MD at [facility] Vascular Closure Device Left: Groin [employer] [id number] 08/08/2026 [id number] / / [id number] Dunn V[employer] System Closure Repair Femoral Artery Suture Mediated Perclose Prostyle 99896-48 - [id number] Implanted:Qty : 1 on 12/16/2024 by Claude Garza MD at [facility] Vascular Closure Device Left: Groin [employer] [id number] 02/05/2025 28166-35 / / [id number] [employer] Restrata Mini Matrix 100mg Micronized Powder Rmini-100 - [id number] Implanted:Qty : 1 on 07/16/2024 by Madelyn Vicente MD PhD at [facility] Right: Groin [employer] 07/11/2025 RMINI-10 0 / [id number] [employer] Riki Patch Vascuguard 0.88cm [id number] - [id number] - [id number] Implanted:Qty : 1 on 07/22/2024 by Madelyn Vicente MD PhD at [facility] Right: Knee [employer] Riki [id number] 02/19/2026 [id number] / [id number] / [id number] Dunn Vascular System Closure Repair Femoral Artery Suture Mediated Perclose Prostyle 26413-82 - [id number] Implanted:Qty : 1 on 12/19/2024 by Claude Garza MD at [facility] Right: Groin [employer] [id number] 03/08/2026 29966-48 / / [id number] Procedures Procedure Name Priority Date/Time Associated Diagnosis [...] HOUR IP Routine 12/19/2024 9:52 AM CDT ME AN PROCEDURE PLACEHOLDER Routine 12/19/2024 9:45 AM CDT ME AN PROCEDURE PLACEHOLDER Routine 12/19/2024 9:44 AM [...] LOW RANGE Routine 12/16/2024 1:59 PM CDT ME AN PROCEDURE PLACEHOLDER Routine 12/16/2024 1:53 PM CDT ME AN PROCEDURE PLACEHOLDER Routine 12/16/2024 1:51 PM CDT ME AN PROCEDURE PLACEHOLDER Routine 12/16/2024 1:50 PM CDT ME AN ELECTIVE ENDOTRACHEAL AIRWAY Routine 12/16/2024 1:50 [...] AM CDT EGFR Timed 12/15/2024 12:37 AM ONION TOPPER BASIC METABOLIC PANEL Timed 12/15/2024 12:37 AM ONION TOPPER CBC WITHOUT DIFFERENTIAL Timed 12/15/2024 12:37 AM ONION TOPPER APTT STAT 12/15/2024 12:37 AM ONION TOPPER APTT STAT 12/14/2024 5:25 PM ONION TOPPER APTT STAT 12/14/2024 9:22 AM ONION TOPPER APTT STAT 12/14/2024 2:10 AM ONION TOPPER CTA ABDOMINAL AORTA AND BILATERAL ILIOFEMORAL RUNOFF ED Urgent/IP Urgent 12/13/2024 8:00 PM ONION TOPPER ME CRITICAL CARE ILL/INJURED PATIENT INIT 30-74 MIN Routine 12/13/2024 7:12 PM ONION TOPPER EGFR STAT 12/13/2024 6:44 PM ONION TOPPER DIFFERENTIAL AUTO STAT 12/13/2024 6:4 4 PM ONION TOPPER PROTIME-INR STAT 12/13/2024 6:44 PM ONION TOPPER APTT STAT 12/13/2024 6:44 PM ONION TOPPER TYPE AND SCREEN STAT 12/13/2024 6:44 PM ONION TOPPER COMPREHENSIVE METABOLIC PANEL STAT 12/13/2024 6:44 PM ONION TOPPER CBC WITH AUTO DIFFERENTIAL STAT 12/13/2024 6:44 PM ONION TOPPER POCT CREATININE - DEVICE Routine 12/13/2024 6:42 PM ONION TOPPER US TRANSFER OF OUTSIDE FILMS Routine 12/13/2024 10:30 [address] OUTSIDE REFERENCE Routine 12/13/2024 10:29 AM ONION TOPPER Diagnosis unknown from Last 3 Months Results * (ABNORMAL) Differential, auto (01/08/2025 10:11 AM CDT) Neutrophil abs 9.52(H) 1.50 - 6.50 K/cumm Imm gran abs 0.04 0.00 - 0.10 K/cumm [facility] Lymphocyte abs 4.14(H) 0.80 - 3.30 K/cumm [facility] Monocyte abs 0.89(H) 0.20 - 0.80 K/cumm [facility] Eosinophil abs 0.19 0.00 - 0.50 K/cumm [facility] Basophil abs 0.10 0.00 - 0.10 K/cumm [facility] Neutrophil pct 63.9 % [facility] Comment: Interpretive Data Percent cell count reference ranges are not reported, since discordance with absolute values may lead to misinterpretation of CBC data. Current Interpretive Data was last revised on 2018. Imm gran pct 0.3 % [facility] Comment: Interpretive Data Percent cell count reference ranges are not reported, since discordance with absolute values may lead to misinterpretation of CBC data. Current Interpretive Data was last revised on 2018. Lymphocyte pct 27.8 % [facility] Comment: Interpretive Data Percent cell count reference ranges are not reported, since discordance with absolute values may lead to misinterpretation of CBC data. Current Interpretive Data was last revised on 2018. Monocyte pct 6.0 % [facility] Comment: Interpretive Data Percent cell count reference ranges are not reported, since discordance with absolute values may lead to misinterpretation of CBC data. Current Interpretive Data was last revised on 2018. Eosinophil pct 1.3 % [facility] Comment: Interpretive Data Percent cell count reference ranges are not reported, since discordance with absolute values may lead to misinterpretation of CBC data. Current Interpretive Data was last revised on 2018. Basophil pct 0.7 % [facility] Comment: Interpretive Data Percent cell count reference ranges are not reported, since discordance with absolute values may lead to misinterpretation of CBC data. Current Interpretive Data was last revised on 2018. Blood 01/08/2025 10:1 1 AM CDT 01/08/2025 10:36 AM CDT [facility] SENIOR PROJECT MANAGER ENGINEERING LAB BLOOD ORDE RABFRANSISCO Final Result [facility] Department [place] [address] * (ABNORMAL) CBC with auto differential (01/08/2025 10:11 AM CDT) Pathologist [facility] WBC 14.88(H) 3.80 - 9.90 K/cumm Hgb 10.7(L) 11.9 - 15.5 g/dL [facility] Hct 34.4(L) 35.6 - 45.5 % [facility] Plt 338 150 - 400 K/cumm [facility] MPV 9.9 9.1 - 12.3 fL [facility] RBC 3.95 3.90 - 5.20 M/cumm [facility] MCV 87.1 81.3 - 96.4 fL [facility] MCH 27.1 27.1 - 33.3 pg [facility] MCHC 31.1(L) 32.3 - 35.7 g/dL [facility] RDW CV 25.1(H) 11.1 - 14.9 % [facility] RDW SD 77.6(H) 35.7 - 48.1 fL [facility] NRBC abs 0.00 0.00 - 0.01 K/cumm [facility] Blood 01/08/2025 10:1 1 AM CDT 01/08/2025 10:36 AM CDT Kirsten Negrita Roa SENIOR PROJECT MANAGER ENGINEERING LAB BLOOD ORDE CHEYANNEFRANSISCO Final Result [facility] Department [place] [address] * US Arterial Duplex Lower Extremity Right Limited (01/02/2025 4:04 PM CDT) Anatomical Region Laterality Modality Vascular Right Ultrasound 01/02/2025 3:02 PM CDT Narrative 01/03/2025 9:05 PM CDT [facility] - Department of Vascular Surgery, Vascular Laboratory [address] [place] [address] Lower Extremity Arterial Duplex - Bypass Graft Report Patient Name: JEFFERY HAMILTON : 1970 Study Date: 01/02/2025 3:02:10 PM Gender: F Tech: Location: [facility] Provider: MADELYN VICENTE Quality: Adequate Order Provider: [...] 55 cm/s Right Value Units FINDINGS: Performing Circle Cutting Saw Operator: Alta Palacios RVT, RDMS. Right Leg: [...] See Ankle/Brachial Index report. 2. Patent right CITY ENGINEER stent. 3. Patent right lower extremity bypass [...] STUDIES: Previous study on 12-17-2024. Patent right CITY ENGINEER stent. Patent right BPG. DISCLAIMER: The study [...] above. Electronically Signed By: Claude Garza MD [facility] [phone] 01/03/2025 8:31:22 PM CDT Procedure Note Claude Garza MD - 01/03/2025 [employer] [facility] [employer] [facility] - Department of Vascular Surgery,Vascular Laboratory [address] [place] [address] Lower Extremity Arterial Duplex - Bypass Graft [...] 55 cm/s Right Value Units FINDINGS: Performing Circle Cutting Saw Operator: Alta Palacios RVT, RDMS. Right Leg: [...] See Ankle/Brachial Index report. 2. Patent right CITY ENGINEER stent. 3. Patent right lower extremity bypass graft with a >75% stenosis at thedistal graft level. HISTORY: 12-19-2024 right leg angiogram - above knee stenosis 12-16-2024 femoral embolectomy/thrombectomy, BPG thrombectomy, right legangioplasty 10-16-2024 right leg angiogram, right leg angioplasty 07-22-2024 right BPG thrombectomy 07-01-2024 right femoral-popliteal BPG Lower limb ischemia, CKD, DVT, HTN, PAD, PVD. PREVIOUS STUDIES: Previous study on 12-17-2024. Patent right CITY ENGINEER stent. Patent right BPG. DISCLAIMER: The study [...] above. Electronically Signed By: Claude Garza MD [facility] [phone] 01/03/2025 8:31:22 PM CDT Madelyn Vicente MD PhD IMG US PROCEDURES Kelsea l Result * US Arterial Doppler Lower Extremity Bilateral (01/02/2025 4:04 PM CDT) Anatomical Region Laterality Modality Vascular Bilateral Ultrasound 01/02/2025 3:29 PM CDT Narrative 01/03/2025 9:06 PM CDT [employer] [facility] [employer] [facility] - Department of Vascular Surgery, Vascular Laboratory [address] [place] [address] Lower Extremity Arterial Doppler Report Patient Name: JEFFERY HAMILTON : 1970 Study Date: 01/02/2025 3:29:00 PM Gender: F Tech: Alta Palacios RVT, RDMS Location: [facility] Provider: MADELYN VICENTE Quality: Adequate Order Provider: MADELYN VICENTE PROCEDURES: Arterial Report: Bilateral lower extremity arterial Doppler exam at rest. INDICATIONS: Z48.812 Encounter for surgical aftercare following surgery on the circulatory system. MEASUREMENTS: Right Value Units Left Value Units Rt Brachial Pressure 156 mmHg Lt Brachial Pressure 152 mmHg Rt ETHYL BLENDER Pressure 138 mmHg Lt ETHYL BLENDER Pressure 120 mmHg Rt DPA Pressure 126 mmHg Lt DPA Pressure 114 mmHg Rt 1st Digit Pressure 90 mmHg Lt 1st Digit Pressure 122 mmHg Rt PT KAROLYN Resting 0.88 Lt PT KAROLYN Resting 0.77 Rt AT KAROLYN Resting 0.81 Lt AT KAROLYN Resting 0.73 Rt Digit/Arm Index 0.58 Lt Digit/Arm Index 0.78 Right Value Units Left Value Units FINDINGS: Performing Circle Cutting Saw Operator: Alta Palacios RVT, RDMS. Right Common [...] above. Electronically Signed By: Claude Garza MD [facility] [phone] 01/03/2025 8:56:56 PM CDT Procedure Note Claude Garza MD - 01/03/2025 [facility] - Department of Vascular Surgery,Vascular Laboratory [address] [place] [address] Lower Extremity Arterial Doppler Report Patient Name: JEFFERY HAMILTON : 1970 Study Date: 01/02/2025 3:29:00 PM Gender: F Tech: Alta Palacios RVT, RDMS Location: [facility] Provider: MADELYN VICENTE Quality: Adequate Order Provider: MADELYN VICENTE PROCEDURES: Arterial Report: Bilateral lower extremity arterial Doppler exam at rest. INDICATIONS: Z48.812 Encounter for surgical aftercare following surgery on thecirculatory system. MEASUREMENTS: Right Value Units Left Value Units Rt Brachial Pressure 156 mmHg Lt Brachial Pressure 152 mmHg Rt ETHYL BLENDER Pressure 138 mmHg Lt ETHYL BLENDER Pressure 120 mmHg Rt DPA Pressure 126 mmHg Lt DPA Pressure 114 mmHg Rt 1st Digit Pressure 90 mmHg Lt 1st Digit Pressure 122 mmHg Rt PT KAROLYN Resting 0.88 Lt PT KAROLYN Resting 0.77 Rt AT KAROLYN Resting 0.81 Lt AT KAROLYN Resting 0.73 Rt Digit/Arm Index 0.58 Lt Digit/Arm Index 0.78 Right Value Units Left Value Units FINDINGS: Performing Circle Cutting Saw Operator: Alta Palacios RVT, RDMS. Right Common [...] above. Electronically Signed By: Claude Garza MD [facility] [phone] 01/03/2025 8:56:56 PM CDT Madelyn Vicente MD PhD IMG US PROCEDURES Kelsea l Result * [place] Fluoroscopy < 1 Hour (12/19/2024 9:52 AM CDT) Narrative [facility] - 12/19/2024 9:53 AM CDT The images from this study are not interpreted by Radiology. Please refer to the physician's procedure / OR operative note. Claude Garza MD IMG FLUOROSCOPY PROCEDURES Fin al Result [facility] * ME AN PROCEDURE PLACEHOLDER (12/19/2024 9:45 AM CDT) [...] tolerated procedure well with no complications Result [facility] Justin Jose MD PhD ANESTHESIA ORDERABLES Final R esult * ME AN PROCEDURE PLACEHOLDER (12/19/2024 9:44 AM CDT) [...] Art POC 40 35 - 45 mmHg [facility] pO2, Art POC 160(H) 83 - 108 mmHg [facility] Na, POC 141 135 - 145 mmol/L [facility] K POC 4.0 3.3 - 4.9 mmol/L [facility] Comment: Interpretive Data Not all point of care methods assess for hemolysis. Confirm with instrument and retest K+ if not consistent with clinical signs and symptoms. Current Interpretive Data was last revised on 2024. Cl, POC 111(H) 97 - 110 mmol/L [facility] Ionized Ca, POC 4.87 4.50 - 5.10 mg/dL [facility] Glucose, POC 94 70 - 199 mg/dL [facility] Lactate, POC 1.2 0.7 - 2.0 mmol/L [facility] SO2 (pedrito) arterial 100(H) 90 - 95 % [facility] Base excess, POC 5.0 mmol/L [facility] HCO3, Art POC 29 20 - 30 mmol/L [facility] Hct, POC 29.0(L) 36.3 - 45.3 % [facility] Total Hb, POC 9.5(L) 11.9 - 15.5 g/dL [facility] Blood 12/19/2024 9:01 AM CDT 12/19/2024 9:01 AM CDT Claude Garza MD LAB POCT ORDERABLES - DEVICE F inal Result [facility] Department [place] [address] * POCT Activated clotting time, low range (12/19/2024 8:51 AM CDT) ACT 133 123 - 168 sec POC Performer [id number] [facility] POC Device Number [id number] [facility] Blood 12/19/2024 8:51 AM CDT 12/19/2024 8:51 AM CDT us Claude Garza MD LAB POCT ORDERABLES - DEVICE F inal Result [facility] Department [place] [address] * Airway (12/19/2024 8:41 AM CDT) Narrative [...] testing cascade (12/18/2024 11:26 PM CDT) Pathologist [facility] JAK2 V617F Not Detected Not Detected [facility] JAK2 V617F Interpretation Not detected: JAK2 V617F mutation was not detected. As ordered, reflex testing for CALR and MPL mutations will be performed and reported separately. A negative JAK2 V617F result may be caused by one of several factors, including absence of Myeloproliferativ e Neoplasm (MPN) or presence of JAK2 [id number] MPN. A JAK2 V617F mutation is detected in 98% of patients with polycythemia vera (PV), 55% of patients with essential thrombocythemia (ET), and 60% of patients with primary myelofibrosis (PMF). This JAK2 V617F test result should be interpreted within the context of clinical and pathological findings for a definitive diagnosis. [facility] JAK2 V617F Specimen Blood [facility] JAK2 V617F Result Review Final report reviewed by: PAUL Devi([facility]) Sorter Operator, on 12/27/2024 11:23:10 CDT. [facility] [facility] Comment: Interpretive Data Method: The assay detects the JAK2 V617F ([id number]: c.[id number]>T) mutation using PCR primers and allele-specific dye-labeled oligonucleotides that exactly match the mutant or normal alleles. When perfectly hybridized to the template DNA sequence, the labeled oligonucleotides are cleaved by the 5 -> 3 exonuclease activity of DNA polymerase. Cleavage during the exponential phase of PCR releases the topology professor dye from the quencher and the signal [...] molecular profiling in myeloproliferative neoplasms. Blood. 2022Jan 26;14116):3392 0 110. PMCID: [id number] This test was performed at: [facility], [facility], [facility]#[id number], Connie Stacy, Ph.D., [place], [address], [place] Current interpretive data was last revised 2024. Blood 12/18/2024 11:2 6 PM CDT 12/19/2024 8:54 AM CDT April Villarreal SENIOR PROJECT MANAGER ENGINEERING LAB GENETIC TESTING F inal Result RITCHIE PLASCENCIA [facility] Department [place] [address] [facility] * CALR with reflex to MPL (myeloproliferative [...] mutation analysis: Genomic DNA was extracted and [place] sequencing used to evaluate for mutations in [...] suspicion is high for polycythemia vera and [id number] (JAK2B, JAK2M, or JAK2V) was tested negative, JAK2 Exon 12 analysis could be considered (JAKXB or JAKXM). Signing Pathologist: Yulisa Francis D.O.SGenaro ADDITIONAL INFORMATION This test was developed and its performance characteristics determined by [facility] in a manner consistent with CLIA requirements. This test has not been cleared or approved by the U.S. Food and Drug Administration. Test Performed by: [place] [address] Housekeeping [employer] Laundry Team Leader: Artis Lauren Ph.D.; CLIA# [id number] Blood 12/18/2024 11:2 6 PM CDT 12/27/2024 12:09 PM CDT Narrative [facility] - 01/06/2025 10:29 AM CDT CALR, MPL Reflex order reflexed from JAK2/CALR/MPL testing cascade. April Villarreal LAB BLOOD ORDERABLES Final Result [facility] Department [place] [address] * (ABNORMAL) Lupus Anticoagulant Panel plus Reflexes (12/18/2024 11:26 PM CDT) PT 11.0 9.7 - 13.0 sec INR 1.02 0.90 - 1.20 RITCHIE [facility] Comment: Interpretive data Oral anticoagulant therapeutic ranges: Venous thromboembolism prophylaxis or treatment: 2.0-3.0 CARDIOLOGY Standard range: 2.0-3.0 High-intensity range: 2.5-3.5 Refer to indication-specific guidelines for appropriate target ranges for prosthetic heart valve replacement. Current interpretive data was last revised on 2019. aPTT 84(H) 28 - 38 sec [facility] Comment: Interpretive Data Heparin therapeutic range: 66.0 - 100.0 seconds. Range based on correlation with therapeutic heparin activity range of 0.3 - 0.7 Units/mL. Current interpretive data was last revised on 2023. DRVVT screen ratio 1.23(H) 0.00 - 1.20 Ratio [facility] DRVVT confirm ratio 1.24 Ratio [facility] DRVVT S/C Ratio 0.99 0.00 - 1.20 Ratio [facility] SCT Screen Ratio 0.83 0.00 - 1.16 Ratio [facility] Lupus anticoagulant, interp Negative [facility] Comment: Interpretive data Lupus anticoagulants (LA) [...] heparin. References: 1) Randolph V, Lara A, Powers JH, Ortanner TL, Delma M, De Libby PG. Update of the guidelines for lupus anticoagulant detection. J Thromb Haemost. 2009; 7:1540-6874. 2. Rayshawn S. et al. International consensus statement on an update of the classification criteria for definite antiphospholipid syndrome (APS). J Thromb Haemost. 2006; 4:295-306. Current interpretive data was last revised on 2018 Blood 12/18/2024 11:2 6 PM CDT 12/19/2024 12:50 AM CDT us April Villarreal NP LAB BLOOD ORDERABLES Final Result Performing Organization Address [facility]/ZIP Co de Phone Number RITCHIE [facility] Department [place] [address] * (ABNORMAL) eGFR (12/18/2024 11:26 PM CDT) [...] LAB BLOOD ORDERABLES Final Res ult CERNER [facility] [place] [address] * Cardiolipin antibody, IgG (12/18/2024 11:26 PM CDT) Pathologist [facility] Cardiolipin, IgG <1.6 <=19.9 GPL U/mL Comment: [...] ARCHANA. These results were obtained with the Orchestrate 2200 System. Cardiolipin IgG values obtained with different manufacturers' assay methods may not be used interchangeably. Current interpretive data was last revised on 2017. Blood 12/18/2024 11:2 6 PM CDT 12/19/2024 12:34 AM CDT April Villarreal SENIOR PROJECT MANAGER ENGINEERING LAB BLOOD ORDERABLES Final Result RITCHIE [facility] Department [place] [address] * Beta 2 glycoprotein IgM Ab (12/18/2024 11:26 PM CDT) Pathologist [facility] Beta-2 glycoprotein I, IgM 0.2 <=19.9 units/mL [...] factor. These results were obtained with the Orchestrate 2200 System. Beta-2 GP1 IgM values obtained with different manufacturers' assay methods may not be used interchangeably. Current interpretive data was last revised on 2017. Blood 12/18/2024 11:2 6 PM CDT 12/19/2024 12:35 AM CDT April Villarreal SENIOR PROJECT MANAGER ENGINEERING LAB BLOOD ORDERABLES Final Result Performing Organization Address City/State/[facility] Co de Phone Number [facility] Department [place] [address] * Beta 2 glycoprotein IgG Ab (12/18/2024 11:26 PM CDT) [facility] Beta-2 glycoprotein I, IgG <1.4 <=19.9 units/mL Comment: Interpretive Data Negative: <20 U/mL Positive: > or = 20 U/mL Beta-2 glycoprotein 1 (Beta-2 GP1) antibodies are a more specific marker of thrombotic risk. It is expected that some samples will be ACL positive and Beta- 2 [id number]. In order to improve specificity, the International Congress on Antiphospholipid Antibodies recommends Beta-2 GP1 antibodies of IgG or IgM isotype (> the 99th percentile), obtained twice, at least 12 weeks apart, to support a diagnosis of antiphospholipid syndrome. The cutoff for this assay was developed from data based on the 99th percentile. These results were obtained with the ZENT BioPlex 2200 System. Beta 2GP1 IgG values obtained with different manufacturers' assay methods may not be used interchangeably. Current interpretive data was last revised on 2017. Blood 12/18/2024 11:2 6 PM CDT 12/19/2024 12:35 AM CDT April Rocha Phil SENIOR PROJECT MANAGER ENGINEERING LAB BLOOD ORDERABLES Final Result [facility] [place] [address] * Cardiolipin antibody, IgM (12/18/2024 11:26 PM [...] antibodies. These results were obtained with the Orchestrate 2200 System. Cardiolipin IgM values obtained with different manufacturers' assay methods may not be used interchangeably. Current interpretive data was last revised on 2017. Blood 12/18/2024 11:2 6 PM CDT 12/19/2024 12:34 AM CDT April Villarreal SENIOR PROJECT MANAGER ENGINEERING LAB BLOOD ORDERABLES Final Result CERNER [facility] Department [place] [address] * [facility] profile (12/18/2024 11:26 PM CDT) Pathologist [facility] RBC-CD59 Test Completed [facility] WBC-CD59 Test Completed [facility] FLAER Test Completed [facility] Interpretation See separate Surgical Pathology report. [facility] Blood 12/18/2024 11:2 6 PM CDT 12/19/2024 12:34 AM CDT Narrative [facility] - 12/19/2024 2:05 PM CDT This test was developed and its performance characteristics determined by the [facility]. It has not been [...] and its performance characteristics determined by the [facility]. It has not been [...] for the patient s age. April Villarreal SENIOR PROJECT MANAGER ENGINEERING LAB BLOOD ORDERABLES Final Result [facility] Department [place] [address] * (ABNORMAL) aPTT (12/18/2024 11:26 PM CDT) Pathologist [facility] aPTT 72(H) 28 - 38 sec Comment: Interpretive Data Heparin therapeutic range: 66.0 - 100.0 seconds. Range based on correlation with therapeutic heparin activity range of 0.3 - 0.7 Units/mL. Current interpretive data was last revised on 2023. Blood 12/18/2024 11:2 6 PM CDT 12/19/2024 12:42 AM CDT Claude Garza MD LAB BLOOD ORDERABLES Final Res ult [facility] [employer] [place] [address] * (ABNORMAL) CBC without differential (12/18/2024 11:26 PM CDT) WBC 13.7(H) 3.8 - 9.9 K/cumm Hgb 11.0(L) 11.9 - 15.5 g/dL [facility] Hct 36.0 35.6 - 45.5 % [facility] Plt 241 150 - 400 K/cumm [facility] MPV 11.2 9.1 - 12.3 fL [facility] RBC 4.13 3.90 - 5.20 M/cumm [facility] MCV 87.2 81.3 - 96.4 fL [facility] MCH 26.6(L) 27.1 - 33.3 pg [facility] MCHC 30.6(L) 32.3 - 35.7 g/dL [facility] RDW CV Not Measured 11.1 - 14.9 % [facility] RDW SD Not Measured 35.7 - 48.1 fL [facility] NRBC abs 0.00 0.00 - 0.01 K/cumm [facility] Blood 12/18/2024 11:2 6 PM CDT 12/19/2024 12:34 AM CDT us Claude Garza MD LAB BLOOD ORDERABLES Final Res ult [facility] [employer] [place] [address] * Phosphorus (12/18/2024 11:26 PM CDT) Phosphorus, pl 2.7 2.3 - 4.5 mg/dL Blood 12/18/2024 11:2 6 PM CDT 12/19/2024 12:34 AM CDT Claude Garza MD LAB BLOOD ORDERABLES Final Res ult Performing Organization Address [facility] de Phone Number [facility] Department [place] [address] * (ABNORMAL) Magnesium (12/18/2024 11:26 PM CDT) Pathologist [facility] Magnesium 2.6(H) 1.4 - 2.5 mg/dL Blood 12/18/2024 11:2 6 PM CDT 12/19/2024 12:34 AM CDT Claude Garza MD LAB BLOOD ORDERABLES Final Res ult Performing Organization Address [facility] de Phone Number [facility] [place] [address] * (ABNORMAL) Basic metabolic panel (12/18/2024 11:26 PM CDT) Pathologist [facility] Sodium 146(H) 135 - 145 mmol/L Potassium, pl 3.9 3.3 - 4.9 mmol/L [facility] Chloride 105 97 - 110 mmol/L [facility] CO2 32 22 - 32 mmol/L [facility] Anion gap 9 2 - 15 mmol/L [facility] BUN 13 6 - 25 mg/dL [facility] Creatinine 1.15(H) 0.60 - 1.10 mg/dL [facility] Glucose 117 70 - 199 mg/dL [facility] Comment: Interpretive Data Fasting glucose >/= [...] Calcium 9.3 8.5 - 10.3 mg/dL RITCHIE [facility] Blood 12/18/2024 11:2 6 PM CDT 12/19/2024 12:34 AM CDT us Claude Garza MD LAB BLOOD ORDERABLES Final Res ult [facility]JESSICA [facility] [place] [address] * Surgical pathology (12/18/2024 11:25 PM CDT) Blood 12/18/2024 11:2 5 PM CDT 12/19/2024 9:23 AM CDT Narrative 12/20/2024 7:50 PM CDT EPIC results best viewed via link to PDF [facility] [place] [address] Note to Patients: This report may contain [...] Gender: F : 1970 (Age: 54) Address: [address] [place] [id number] Hospital #: [id number] Taken:12/18/2024 Received:12/19/2024 Reported: 12/20/2024 Patient Type: [facility] Inpatient Service: Vascular Location: [facility] [address] Physician(s): Suleman Medellin Diagnosis: Peripheral blood for [facility] flow cytometry: - No immunophenotypic evidence of paroxysmal nocturnal hemoglobinuria [facility]/12/19/2024 17:23 By this signature, [...] antibodies to the following cellular antigens: CD45, [id number], CD15, CD59, FLAER. Total antigens analyzed: 5 [...] Surgical Pathology and Flow Cytometry Departments at [facility] as part of an ongoing coding quality analyst program and in compliance with [...] Surgical Pathology and Flow Cytometry Departments of [facility]. It has not been cleared or approved [...] ORDERABLES Final Res ult RITCHIE PLASCENCIA [facility] [place] [address] * CTA Abdominal Aorta And Bilateral Iliofemoral [...] signed by: Romana Jolly M.D. April Villarreal SENIOR PROJECT MANAGER ENGINEERING IMG CT PROCEDURES Fin al Result * (ABNORMAL) aPTT (12/18/2024 6:02 AM CDT) [facility] aPTT 60(H) 28 - 38 sec Comment: Interpretive Data Heparin therapeutic range: 66.0 - 100.0 seconds. Range based on correlation with therapeutic heparin activity range of 0.3 - 0.7 Units/mL. Current interpretive data was last revised on 2023. Blood 12/18/2024 6:02 AM CDT 12/18/2024 6:16 AM CDT Narrative RITCHIE [facility] - 12/18/2024 6:39 AM CDT STAT PTT [...] Hull NP LAB BLOOD ORDERABLES Final Result [facility] Department [place] [address] * (ABNORMAL) eGFR (12/17/2024 8:22 PM CDT) [facility] eGFR 49(L) >=60 mL/min/1. 73 m2 [...] ORDERABLES Final Res ult RITCHIE PLASCENCIA [facility] [place] [address] * (ABNORMAL) aPTT (12/17/2024 8:22 PM CDT) aPTT 61(H) 28 - 38 sec Comment: No clot detected in sample - [id number] - 12/17/24, 9:23 PM Interpretive Data Heparin [...] BLOOD ORDERABLES Final Result Performing Organization Address [facility]/ZIP Co de Phone Number [facility] Department [place] [address] * (ABNORMAL) CBC without differential (12/17/2024 8:22 PM CDT) Pathologist [facility] WBC 19.5(H) 3.8 - 9.9 K/cumm Hgb 10.4(L) 11.9 - 15.5 g/dL [facility] Hct 33.7(L) 35.6 - 45.5 % [facility] Plt 245 150 - 400 K/cumm [facility] MPV 11.1 9.1 - 12.3 fL [facility] RBC 3.92 3.90 - 5.20 M/cumm [facility] MCV 86.0 81.3 - 96.4 fL [facility] MCH 26.5(L) 27.1 - 33.3 pg [facility] MCHC 30.9(L) 32.3 - 35.7 g/dL [facility] RDW CV Not Measured 11.1 - 14.9 % [facility] RDW SD Not Measured 35.7 - 48.1 fL [facility] NRBC abs 0.00 0.00 - 0.01 K/cumm [facility] Blood 12/17/2024 8:22 PM CDT 12/17/2024 9:04 PM CDT us Claude Garza MD LAB BLOOD ORDERABLES Final Res ult [facility] [place] [address] * Phosphorus (12/17/2024 8:22 PM CDT) Pathologist [facility] Phosphorus, pl 3.9 2.3 - 4.5 mg/dL Blood 12/17/2024 8:22 PM CDT 12/17/2024 9:04 PM CDT Claude Garza MD LAB BLOOD ORDERABLES Final Res ult Performing Organization Address [facility] Co de Phone Number [facility] [place] [address] * Magnesium (12/17/2024 8:22 PM CDT) Pathologist [facility] Magnesium 1.5 1.4 - 2.5 mg/dL Blood 12/17/2024 8:22 PM CDT 12/17/2024 9:04 PM CDT Claude Garza MD LAB BLOOD ORDERABLES Final Res ult Performing Organization Address [facility] [place] [address] * Hemoglobin A1c (12/17/2024 8:22 PM CDT) Hgb A1C 4.5 4.0 - 5.6 % Estimated Average Glucose 82 mg/dL [facility] Comment: The ADA recommends reporting an [...] ORDERABLES Final Res ult Performing Organization Address [facility] Co de Phone Number [facility] [employer] [place] [address] * (ABNORMAL) Basic metabolic panel (12/17/2024 8:22 PM CDT) Sodium 148(H) 135 - 145 mmol/L Potassium, pl 3.7 3.3 - 4.9 mmol/L [facility] Chloride 111(H) 97 - 110 mmol/L [facility] CO2 26 22 - 32 mmol/L [facility] Anion gap 11 2 - 15 mmol/L [facility] BUN 18 6 - 25 mg/dL [facility] Creatinine 1.32(H) 0.60 - 1.10 mg/dL [facility] Glucose 94 70 - 199 mg/dL [facility] Comment: Interpretive Data Fasting glucose >/= [...] 2022. Calcium 8.6 8.5 - 10.3 mg/dL [facility] Blood 12/17/2024 8:22 PM CDT 12/17/2024 9:04 PM CDT us Claude Garza MD LAB BLOOD ORDERABLES Final Res ult [facility] [place] [address] * (ABNORMAL) aPTT (12/17/2024 1:00 PM CDT) aPTT 46(H) 28 - 38 sec Comment: Interpretive Data Heparin therapeutic range: 66.0 - 100.0 seconds. Range based on correlation with therapeutic heparin activity range of 0.3 - 0.7 Units/mL. Current interpretive data was last revised on 2023. Blood 12/17/2024 1:00 PM CDT 12/17/2024 1:26 PM CDT Daniele DUGAN [facility] - 12/17/2024 1:48 PM CDT STAT PTT [...] MD LAB BLOOD ORDERABLES Final Res ult [facility] [place] [address] * US Arterial Duplex Lower Extremity Right Limited (12/17/2024 12:20 PM CDT) Anatomical Region Laterality Modality Vascular Right Ultrasound 12/17/2024 10:2 9 AM CDT Narrative 12/17/2024 7:12 PM CDT [facility] - Department of Vascular Surgery, Vascular Laboratory [address] [place] [address] [place] Lower Extremity Arterial Duplex Report Patient Name: JEFFERY HAMILTON ANN : 1970 Study Date: 12/17/2024 10:29:11 AM Gender: F Tech: PETER/CARLOS Location: [id number] Ref Provider: BERNARDO HULL Quality: Adequate Order Provider: BERNARDO HULL PROCEDURES: Arterial Report: Right Lower Extremity Arterial Duplex Exam. INDICATIONS: Presence of Vascular Implants and Grafts - MEASUREMENTS: Right Value Units Rt Distal External Iliac 82 cm/s Rt CITY ENGINEER Dst PSV 142 cm/s Rt Common Femoral [...] 48 cm/s Right Value Units FINDINGS: Performing Circle Cutting Saw Operator: Shey Dorman RDMS, RVT. Right Distal [...] and during surgery yesterday. 2. Patent right CITY ENGINEER artery stent. 3. Patent right fem-pop bypass graft. HISTORY: Arterial occlusion Hypertension DVT (deep venous thrombosis) ([facility]) Critical limb ischemia of right lower extremity ([facility]) 12/16/2024: FEMORAL EMBOLECTOMY/THROMBECTOMY- suction thrombectomy [...] above. Electronically Signed By: Claude Garza MD [facility] [phone] 12/17/2024 7:04:32 PM CDT Procedure Note Claude Garza MD - 12/17/2024 [facility] - Department of Vascular Surgery,Vascular Laboratory [address] [place] [address] [place] Lower Extremity Arterial Duplex Report Patient Name: JEFFERY HAMILTON ANN : 1970 Study Date: 12/17/2024 10:29:11 AM Gender: F Tech: PETER/CARLOS Location: [id number] Ref Provider: BERNARDO HULL Quality: Adequate Order Provider: BERNARDO HULL PROCEDURES: Arterial Report: Right Lower Extremity Arterial Duplex Exam. INDICATIONS: Presence of Vascular Implants and Grafts - MEASUREMENTS: Right Value Units Rt Distal External Iliac 82 cm/s Rt CITY ENGINEER Dst PSV 142 cm/s Rt Common Femoral [...] 48 cm/s Right Value Units FINDINGS: Performing Circle Cutting Saw Operator: Shey Dorman RDMS, RVT. Right Distal [...] CTA and duringsurgery yesterday. 2. Patent right CITY ENGINEER artery stent. 3. Patent right fem-pop bypass graft. HISTORY: Arterial occlusion Hypertension DVT (deep venous thrombosis) ([facility]) Critical limb ischemia of right lower extremity ([facility]) 12/16/2024: FEMORAL EMBOLECTOMY/THROMBECTOMY- suction thrombectomy [...] above. Electronically Signed By: Claude Garza MD [facility] [phone] 12/17/2024 7:04:32 PM CDT us Bernardo CoombsGenaro Hull SENIOR PROJECT MANAGER ENGINEERING IMG US PROCEDURES Final Res ult * [...] LAB BLOOD ORDERABLES Final Res ult RITCHIE [facility] [place] [address] * eGFR (12/16/2024 10:52 PM CDT) eGFR [...] MD LAB BLOOD ORDERABLES Final Res ult [facility] [place] [address] * (ABNORMAL) CBC without differential (12/16/2024 10:52 PM CDT) WBC 18.2(H) 3.8 - 9.9 K/cumm Hgb 12.1 11.9 - 15.5 g/dL [facility] Hct 39.8 35.6 - 45.5 % [facility] Plt 239 150 - 400 K/cumm [facility] MPV 10.6 9.1 - 12.3 fL [facility] RBC 4.55 3.90 - 5.20 M/cumm [facility] MCV 87.5 81.3 - 96.4 fL [facility] MCH 26.6(L) 27.1 - 33.3 pg [facility] MCHC 30.4(L) 32.3 - 35.7 g/dL [facility] RDW CV Not Measured 11.1 - 14.9 % [facility] RDW SD Not Measured 35.7 - 48.1 fL [facility] NRBC abs 0.00 0.00 - 0.01 K/cumm [facility] Blood 12/16/2024 10:5 2 PM CDT 12/17/2024 12:31 AM CDT Claude Garza MD LAB BLOOD ORDERABLES Final Res ult Performing Organization Address City/[facility]/ZIP Co de Phone Number [facility] [place] [address] * (ABNORMAL) CBC without differential (12/16/2024 10:52 PM CDT) WBC 18.1(H) 3.8 - 9.9 K/cumm Hgb 12.2 11.9 - 15.5 g/dL [facility] Hct 40.2 35.6 - 45.5 % [facility] Plt 245 150 - 400 K/cumm [facility] MPV 10.8 9.1 - 12.3 fL [facility] RBC 4.60 3.90 - 5.20 M/cumm [facility] MCV 87.4 81.3 - 96.4 fL [facility] MCH 26.5(L) 27.1 - 33.3 pg [facility] MCHC 30.3(L) 32.3 - 35.7 g/dL [facility] RDW CV Not Measured 11.1 - 14.9 % [facility] RDW SD Not Measured 35.7 - 48.1 fL [facility] NRBC abs 0.00 0.00 - 0.01 K/cumm [facility] Blood 12/16/2024 10:5 2 PM CDT 12/17/2024 12:31 AM CDT Narrative [facility] - 12/17/2024 12:40 AM CDT While on heparin infusion Claude Garza MD LAB BLOOD ORDERABLES Final Res ult [facility] [place] [address] * (ABNORMAL) Phosphorus (12/16/2024 10:52 PM CDT) [facility] Phosphorus, pl 5.3(H) 2.3 - 4.5 mg/dL Blood 12/16/2024 10:5 2 PM CDT 12/17/2024 12:30 AM CDT Claude Garza MD LAB BLOOD ORDERABLES Final Res ult Performing Organization Address [facility] [place] [address] * Magnesium (12/16/2024 10:52 PM CDT) [facility] Magnesium 1.6 1.4 - 2.5 mg/dL Blood 12/16/2024 10:5 2 PM CDT 12/17/2024 12:30 AM CDT Claude Garza MD LAB BLOOD ORDERABLES Final Res ult Performing Organization Address [facility] [place] [address] * Basic metabolic panel (12/16/2024 10:52 PM CDT) [facility] Sodium 144 135 - 145 mmol/L Potassium, pl 4.3 3.3 - 4.9 mmol/L [facility] Chloride 109 97 - 110 mmol/L [facility] [facility] CO2 24 22 - 32 mmol/L [facility] Anion gap 11 2 - 15 mmol/L [facility] BUN 16 6 - 25 mg/dL [facility] Creatinine 1.05 0.60 - 1.10 mg/dL [facility] Glucose 143 70 - 199 mg/dL [facility] Comment: Interpretive Data Fasting glucose >/= [...] Calcium 8.8 8.5 - 10.3 mg/dL [facility] Blood 12/16/2024 10:5 2 PM CDT 12/17/2024 12:30 AM CDT us Claude Garza MD LAB BLOOD ORDERABLES Final Res ult [facility] Department [place] [address] * eGFR (12/16/2024 7:42 PM CDT) eGFR [...] ORDERABLES Final Res ult Performing Organization Address [facility] Co de Phone Number [facility] [place] [address] * (ABNORMAL) CBC without differential (12/16/2024 7:42 PM CDT) Pathologist [facility] WBC 17.3(H) 3.8 - 9.9 K/cumm Hgb 12.0 11.9 - 15.5 g/dL [facility] Hct 39.0 35.6 - 45.5 % [facility] Plt 269 150 - 400 K/cumm [facility] MPV 10.6 9.1 - 12.3 fL [facility] RBC 4.53 3.90 - 5.20 M/cumm [facility] MCV 86.1 81.3 - 96.4 fL [facility] MCH 26.5(L) 27.1 - 33.3 pg [facility] MCHC 30.8(L) 32.3 - 35.7 g/dL [facility] RDW CV Not Measured 11.1 - 14.9 % [facility] RDW SD Not Measured 35.7 - 48.1 fL [facility] NRBC abs 0.00 0.00 - 0.01 K/cumm [facility] Blood 12/16/2024 7:42 PM CDT 12/16/2024 7:55 PM CDT Claude Garza MD LAB BLOOD ORDERABLES Final Res ult Performing Organization Address [facility] Co de Phone Number [facility] Department [place] [address] * (ABNORMAL) Phosphorus (12/16/2024 7:42 PM CDT) Pathologist [facility] Phosphorus, pl 5.0(H) 2.3 - 4.5 mg/dL Blood 12/16/2024 7:42 PM CDT 12/16/2024 7:55 PM CDT Claude Garza MD LAB BLOOD ORDERABLES Final Res ult [facility] [place] [address] * Magnesium (12/16/2024 7:42 PM CDT) Pathologist [facility] Magnesium 1.6 1.4 - 2.5 mg/dL Blood 12/16/2024 7:42 PM CDT 12/16/2024 7:55 PM CDT Claude Garza MD LAB BLOOD ORDERABLES Final Res ult Performing Organization Address [facility] de Phone Number [facility] Department [place] [address] * (ABNORMAL) Basic metabolic panel (12/16/2024 7:42 PM CDT) Pathologist [facility] Sodium 146(H) 135 - 145 mmol/L Potassium, pl 4.1 3.3 - 4.9 mmol/L [facility] Chloride 110 97 - 110 mmol/L [facility] CO2 24 22 - 32 mmol/L [facility] Anion gap 12 2 - 15 mmol/L [facility] BUN 16 6 - 25 mg/dL [facility] Creatinine 1.05 0.60 - 1.10 mg/dL [facility] Glucose 129 70 - 199 mg/dL [facility] Comment: Interpretive Data Fasting glucose >/= [...] 2022. Calcium 8.7 8.5 - 10.3 mg/dL [facility] Blood 12/16/2024 7:42 PM CDT 12/16/2024 7:55 PM CDT us Claude Garza MD LAB BLOOD ORDERABLES Final Res ult Performing Organization Address [facility]/ZIP Co de Phone Number [facility] Department [place] [address] * FEMORAL EMBOLECTOMY/THROMBECTOMY, ANGIOGRAM (12/16/2024 7:29 PM CDT) Anatomical Region Laterality Modality X-Ray Angiograph y Narrative 12/17/2024 9:11 AM CDT Please see OpNote for result. us Claude Garza MD SURGICAL CASE ORDERS Final Res ult * THROMBECTOMY, ANGIOPLASTY BALLOON/STENT PLACEMENT, BYPASS GRAFT - FEMORAL LOWER EXT [id number] (12/16/2024 7:29 PM CDT) Anatomical Region Laterality [...] PROCEDURES Fin al Result Performing Organization Address City/[facility]/ZIP Co de Phone Number [email or web address] * POCT Activated clotting time, low range (12/16/2024 6:47 PM CDT) ACT 124 123 - 168 sec POC Performer [id number] [facility] POC Device Number [id number] [facility] Blood 12/16/2024 6:47 PM CDT 12/16/2024 6:47 PM CDT us Claude Garza MD LAB POCT ORDERABLES - DEVICE F inal Result Performing Organization Address City/[facility]/ZIP Co de Phone Number [facility] Department [place] [address] * (ABNORMAL) POC Blood Gas and Chemistries, Arterial - (12/16/2024 6:23 PM CDT) Pathologist [facility] pH, Art POC 7.40 7.35 - 7.45 pCO2, Art POC 43 35 - 45 mmHg [facility] pO2, Art POC 139(H) 83 - 108 mmHg [facility] Na, POC 143 135 - 145 mmol/L [facility] K POC 3.8 3.3 - 4.9 mmol/L [facility] Comment: Interpretive Data Not all point of care methods assess for hemolysis. Confirm with instrument and retest K+ if not consistent with clinical signs and symptoms. Current Interpretive Data was last revised on 2024. Cl, POC 112(H) 97 - 110 mmol/L [facility] Ionized Ca, POC 4.75 4.50 - 5.10 mg/dL [facility] Glucose, POC 123 70 - 199 mg/dL [facility] Lactate, POC 1.1 0.7 - 2.0 mmol/L [facility] SO2 (pedrito) arterial 100(H) 90 - 95 % [facility] Base excess, POC 1.5 mmol/L [facility] HCO3, Art POC 26 20 - 30 mmol/L [facility] Hct, POC 37.0 36.3 - 45.3 % [facility] Total Hb, POC 12.2 11.9 - 15.5 g/dL [facility] Blood 12/16/2024 6:23 PM CDT 12/16/2024 6:23 PM CDT Claude Garza MD LAB POCT ORDERABLES - DEVICE F inal Result Performing Organization Address City/[facility]/ZIP Co de Phone Number [facility] Department [place] [address] * (ABNORMAL) POCT Activated clotting time, low range (12/16/2024 6:08 PM CDT) ACT 232(H) 123 - 168 sec POC Performer [id number] [facility] POC Device Number [id number] [facility] Blood 12/16/2024 6:08 PM CDT 12/16/2024 6:08 PM CDT Claude Garza MD LAB POCT ORDERABLES - DEVICE F inal Result Performing Organization Address City/[facility]/ZIP Co de Phone Number [facility]JESSICA [facility] [place] [address] * (ABNORMAL) POCT Activated clotting time, low range (12/16/2024 5:39 PM CDT) ACT 192(H) 123 - 168 sec POC Performer [id number] [facility] POC Device Number [id number] [facility] Blood 12/16/2024 5:39 PM CDT 12/16/2024 5:39 PM CDT us Claude Garza MD LAB POCT ORDERABLES - DEVICE F inal Result [facility] [place] [address] * (ABNORMAL) POCT Activated clotting time, low range (12/16/2024 5:03 PM CDT) ACT 253(H) 123 - 168 sec POC Performer [id number] [facility] POC Device Number [id number] [facility] Blood 12/16/2024 5:03 PM CDT 12/16/2024 5:03 PM CDT Claude Garza MD LAB POCT ORDERABLES - DEVICE F inal Result Performing Organization Address [facility] de Phone Number [facility] [address] [place] [address] * (ABNORMAL) POCT Activated clotting time, low range (12/16/2024 4:28 PM CDT) ACT 229(H) 123 - 168 sec POC Performer [id number] [facility] POC Device Number [id number] [facility] Blood 12/16/2024 4:28 PM CDT 12/16/2024 4:28 PM CDT us Claude Garza MD LAB POCT ORDERABLES - DEVICE F inal Result Performing Organization Address [facility] [place] [address] * (ABNORMAL) POCT Activated clotting time, low range (12/16/2024 3:56 PM CDT) ACT 253(H) 123 - 168 sec POC Performer [id number] [facility] POC Device Number [id number] [facility] Blood 12/16/2024 3:56 PM CDT 12/16/2024 3:56 PM CDT us Claude Garza MD LAB POCT ORDERABLES - DEVICE F inal Result Performing Organization Address [facility] de Phone Number [facility]JESSICA [facility] [address] [place] [address] * (ABNORMAL) POCT Activated clotting time, low range (12/16/2024 3:26 PM CDT) ACT 245(H) 123 - 168 sec POC Performer [id number] [facility] POC Device Number [id number] [facility] Blood 12/16/2024 3:26 PM CDT 12/16/2024 3:26 PM CDT Claude Garza MD LAB POCT ORDERABLES - DEVICE F inal Result Performing Organization Address [facility] Co de Phone Number [facility] [address] [place] [address] * (ABNORMAL) POCT Activated clotting time, low range (12/16/2024 3:03 PM CDT) ACT 253(H) 123 - 168 sec POC Performer [id number] [facility] POC Device Number [id number] [facility] Blood 12/16/2024 3:03 PM CDT 12/16/2024 3:03 PM CDT Claude Garza MD LAB POCT ORDERABLES - DEVICE F inal Result Performing Organization Address [facility] de Phone Number [facility] [place] [address] * POCT Activated clotting time, low range (12/16/2024 1:59 PM CDT) ACT 144 123 - 168 sec POC Performer [id number] [facility] POC Device Number [id number] [facility] Blood 12/16/2024 1:59 PM CDT 12/16/2024 1:59 PM CDT Claude Garza MD LAB POCT ORDERABLES - DEVICE F inal Result Performing Organization Address [facility] de Phone Number [facility] [address] [place] [address] * ME AN PROCEDURE PLACEHOLDER (12/16/2024 1:53 PM CDT) [...] MD ANESTHESIA ORDERABLES Kelsea l Result * ME AN PROCEDURE PLACEHOLDER (12/16/2024 1:51 PM CDT) William Wood CRNA - 12/16/2024 1:51 PM CDT William Campos CRNA 12/16/2024 1:51 PM Peripheral IV Catheter Patient location: OR Staff: Placed by: MACHINE HEEL SPRAYER: William Campos CRNA Preprocedure prep: Prep solution: chlorhexadine PPE: gloves and provider hat/mask PIV line: Laterality: left Site: wrist Catheter size: 18 g Technique: anatomical landmarks and direct visualization Procedure details: good blood return and occlusive dressing applied Number of attempts: 1 Assessment: Events: patient tolerated procedure well with no complications Naman Magaña MD ANESTHESIA ORDERABLES Kelsea l Result * ME AN ELECTIVE ENDOTRACHEAL AIRWAY, ME AN PROCEDURE PLACEHOLDER (12/16/2024 1:50 PM CDT) William Wood CRNA - 12/16/2024 1:50 PM CDT William Campos CRNA 12/16/2024 1:50 PM Airway Patient location: OR Urgency: elective Indications for airway management: anesthesia and airway protection Difficult airway: no Staff: Placed by: MACHINE HEEL SPRAYER: Jeanne Baker CRNA Emergent airway documentation: Risks [...] Ella, indirect Negative ABO Rh A Positive [facility] Blood 12/16/2024 9:44 AM CDT 12/16/2024 11:57 AM CDT Narrative [facility] - 12/16/2024 1:09 PM CDT Has the patient had Daratumumab or Isatuximab in the past 6 months?->Unknown us Claude Garza MD LAB BLOOD BANK TEST ORDERABLES Final Result [facility] Department [place] [address] * eGFR (12/15/2024 10:39 PM CDT) eGFR [...] ORDERABLES Final Res ult Performing Organization Address [facility] Co de Phone Number [facility] Department of [address] [place] [address] * (ABNORMAL) aPTT (12/15/2024 10:39 PM CDT) [facility] aPTT 90(H) 28 - 38 sec Comment: Interpretive Data Heparin therapeutic range: 66.0 - 100.0 seconds. Range based on correlation with therapeutic heparin activity range of 0.3 - 0.7 Units/mL. Current interpretive data was last revised on 2023. Blood 12/15/2024 10:3 9 PM CDT 12/15/2024 10:57 PM CDT Narrative [facility] - 12/15/2024 11:27 PM CDT STAT PTT [...] ORDERABLES Final Res ult Performing Organization Address [facility]/ZIP Co de Phone Number [facility] Department of [address] [place] [address] * (ABNORMAL) CBC without differential (12/15/2024 10:39 PM CDT) [facility] WBC 12.2(H) 3.8 - 9.9 K/cumm Hgb 12.9 11.9 - 15.5 g/dL [facility] Hct 41.7 35.6 - 45.5 % [facility] Plt 267 150 - 400 K/cumm [facility] MPV 10.4 9.1 - 12.3 fL [facility] RBC 4.79 3.90 - 5.20 M/cumm [facility] MCV 87.1 81.3 - 96.4 fL [facility] MCH 26.9(L) 27.1 - 33.3 pg [facility] MCHC 30.9(L) 32.3 - 35.7 g/dL [facility] RDW CV Not Measured 11.1 - 14.9 % [facility] RDW SD Not Measured 35.7 - 48.1 fL [facility] NRBC abs 0.00 0.00 - 0.01 K/cumm [facility] Blood 12/15/2024 10:3 9 PM CDT 12/15/2024 10:58 PM CDT Claude Garza MD LAB BLOOD ORDERABLES Final Res ult Performing Organization Address City/[facility] Co de Phone Number [facility] Department [place] [address] * Phosphorus (12/15/2024 10:39 PM CDT) [facility] Phosphorus, pl 3.4 2.3 - 4.5 mg/dL Blood 12/15/2024 10:3 9 PM CDT 12/15/2024 10:57 PM CDT Claude Garza MD LAB BLOOD ORDERABLES Final Res ult Performing Organization Address City/[facility]/ZIP Co de Phone Number [facility] Department [place] [address] * Magnesium (12/15/2024 10:39 PM CDT) Pathologist [facility] Magnesium 1.9 1.4 - 2.5 mg/dL Blood 12/15/2024 10:3 9 PM CDT 12/15/2024 10:57 PM CDT us Claude Garza MD LAB BLOOD ORDERABLES Final Res ult [facility] [place] [address] * Basic metabolic panel (12/15/2024 10:39 PM CDT) Pathologist [facility] Sodium 143 135 - 145 mmol/L Potassium, pl 4.0 3.3 - 4.9 mmol/L [facility] Comment:Hemolyzed; Potassium value may be falsely elevated by as much as 0.3-0.5 mmol/L. Suggest redraw and reanalysis. Chloride 108 97 - 110 mmol/L [facility] CO2 24 22 - 32 mmol/L [facility] Anion gap 11 2 - 15 mmol/L [facility] BUN 21 6 - 25 mg/dL [facility] Creatinine 1.09 0.60 - 1.10 mg/dL [facility] Glucose 128 70 - 199 mg/dL [facility] Comment: Interpretive Data Fasting glucose >/= [...] 2022. Calcium 9.3 8.5 - 10.3 mg/dL [facility] Blood 12/15/2024 10:3 9 PM CDT 12/15/2024 10:57 PM CDT us Claude Garza MD LAB BLOOD ORDERABLES Final Res ult Performing Organization Address [facility]/ZIP Co de Phone Number [facility] Department [place] [address] * (ABNORMAL) aPTT (12/15/2024 6:48 AM CDT) [facility] aPTT 84(H) 28 - 38 sec Comment: Interpretive Data Heparin therapeutic range: 66.0 - 100.0 seconds. Range based on correlation with therapeutic heparin activity range of 0.3 - 0.7 Units/mL. Current interpretive data was last revised on 2023. Blood 12/15/2024 6:48 AM CDT 12/15/2024 7:16 AM CDT Narrative [facility] - 12/15/2024 7:38 AM CDT STAT PTT [...] ORDERABLES Final Res ult [facility] Department [place] [address] * eGFR (12/15/2024 12:37 AM ONION TOPPER) [facility] eGFR 67 >=60 mL/min/1. 73 m2 Comment: [...] reviewed 2021. Blood 12/15/2024 12:3 7 AM ONION TOPPER 12/15/2024 1:25 AM ONION TOPPER us Claude Garza MD LAB BLOOD ORDERABLES Final Res ult [facility] [place] [address] * (ABNORMAL) aPTT (12/15/2024 12:37 AM ONION TOPPER) aPTT 69(H) 28 - 38 sec Comment: Interpretive Data Heparin therapeutic range: 66.0 - 100.0 seconds. Range based on correlation with therapeutic heparin activity range of 0.3 - 0.7 Units/mL. Current interpretive data was last revised on 2023. Blood 12/15/2024 12:3 7 AM ONION TOPPER 12/15/2024 1:36 AM ONION TOPPER Narrative [facility] - 12/15/2024 1:59 AM ONION TOPPER STAT PTT timing: - Draw 6 hours [...] ORDERABLES Final Res ult Performing Organization Address [facility] Co de Phone Number [facility] Department of [address] [place] [address] * (ABNORMAL) CBC without differential (12/15/2024 12:37 AM ONION TOPPER) [facility] WBC 11.2(H) 3.8 - 9.9 K/cumm Hgb 12.7 11.9 - 15.5 g/dL [facility] Hct 41.2 35.6 - 45.5 % [facility] Plt 255 150 - 400 K/cumm [facility] MPV 10.7 9.1 - 12.3 fL [facility] RBC 4.77 3.90 - 5.20 M/cumm [facility] MCV 86.4 81.3 - 96.4 fL [facility] MCH 26.6(L) 27.1 - 33.3 pg [facility] MCHC 30.8(L) 32.3 - 35.7 g/dL [facility] RDW CV Not Measured 11.1 - 14.9 % [facility] RDW SD Not Measured 35.7 - 48.1 fL [facility] NRBC abs 0.00 0.00 - 0.01 K/cumm [facility] Blood 12/15/2024 12:3 7 AM ONION TOPPER 12/15/2024 1:25 AM ONION TOPPER Claude Garza MD LAB BLOOD ORDERABLES Final Res ult Performing Organization Address [facility] Co de Phone Number [facility] Department [place] [address] * Basic metabolic panel (12/15/2024 12:37 AM ONION TOPPER) Sodium 145 135 - 145 mmol/L Potassium, pl 3.8 3.3 - 4.9 mmol/L [facility] Chloride 109 97 - 110 mmol/L [facility] CO2 26 22 - 32 mmol/L [facility] Anion gap 10 2 - 15 mmol/L [facility] BUN 16 6 - 25 mg/dL [facility] Creatinine 1.01 0.60 - 1.10 mg/dL [facility] Glucose 92 70 - 199 mg/dL [facility] Comment: Interpretive Data Fasting glucose >/= [...] 2022. Calcium 8.9 8.5 - 10.3 mg/dL [facility] Blood 12/15/2024 12:3 7 AM ONION TOPPER 12/15/2024 1:25 AM ONION TOPPER us Claude Garza MD LAB BLOOD ORDERABLES Final Res ult [facility] [place] [address] * (ABNORMAL) aPTT (12/14/2024 5:25 PM ONION TOPPER) aPTT 58(H) 28 - 38 sec Comment: Interpretive Data Heparin therapeutic range: 66.0 - 100.0 seconds. Range based on correlation with therapeutic heparin activity range of 0.3 - 0.7 Units/mL. Current interpretive data was last revised on 2023. Blood 12/14/2024 5:25 PM ONION TOPPER 12/14/2024 5:59 PM ONION TOPPER Narrative [facility] - 12/14/2024 6:08 PM ONION TOPPER STAT PTT timing: - Draw 6 hours [...] MD LAB BLOOD ORDERABLES Final Res ult [facility] [place] [address] * (ABNORMAL) aPTT (12/14/2024 9:22 AM ONION TOPPER) [facility] aPTT 56(H) 28 - 38 sec Comment: Interpretive Data Heparin therapeutic range: 66.0 - 100.0 seconds. Range based on correlation with therapeutic heparin activity range of 0.3 - 0.7 Units/mL. Current interpretive data was last revised on 2023. Blood 12/14/2024 9:22 AM ONION TOPPER 12/14/2024 9:48 AM ONION TOPPER Narrative [facility] - 12/14/2024 10:13 AM ONION TOPPER STAT PTT timing: - Draw 6 hours [...] ORDERABLES Final Res ult Performing Organization Address [facility] Co de Phone Number [facility] [place] [address] * (ABNORMAL) aPTT (12/14/2024 2:10 AM ONION TOPPER) aPTT 40(H) 28 - 38 sec Comment: Interpretive Data Heparin therapeutic range: 66.0 - 100.0 seconds. Range based on correlation with therapeutic heparin activity range of 0.3 - 0.7 Units/mL. Current interpretive data was last revised on 2023. Blood 12/14/2024 2:10 AM ONION TOPPER 12/14/2024 2:47 AM ONION TOPPER Narrative [facility] - 12/14/2024 2:55 AM ONION TOPPER STAT PTT timing: - Draw 6 hours [...] ORDERABLES Final Res ult Performing Organization Address [facility] Co de Phone Number [facility] PLASCENC[facility] Department [place] [address] * CTA Abdominal Aorta And Bilateral Iliofemoral Runoff (12/13/2024 8:00 PM ONION TOPPER) Anatomical Region Laterality Modality Body Bilateral Computed Tomogra phy 12/13/2024 8:21 PM ONION TOPPER Impressions 12/13/2024 8:40 PM ONION TOPPER 1. Right lower extremity: There is nonopacification [...] Carlos Hardwick M.D. Narrative 12/13/2024 8:40 PM ONION TOPPER EXAMINATION: CT ANGIOGRAPHY OF THE ABDOMEN, PELVIS, [...] IMG CT PROCEDURES Kelsea l Result * ME CRITICAL CARE ILL/INJURED PATIENT INIT 30-74 MIN (12/13/2024 7:12 PM ONION TOPPER) Narrative Fatimah Glover MD - 12/13/2024 7:12 PM ONION TOPPER Fatimah Glover MD 12/18/2024 8:25 AM Critical [...] Final Result * eGFR (12/13/2024 6:44 PM ONION TOPPER) [facility] eGFR 64 >=60 mL/min/1. 73 m2 [...] last reviewed 2021. Blood 12/13/2024 6:44 PM ONION TOPPER 12/13/2024 6:53 PM ONION TOPPER us Fatimah Glover MD LAB BLOOD ORDERABLES Kelsea mack Result [facility] [place] [address] * (ABNORMAL) Differential, auto (12/13/2024 6:44 PM ONION TOPPER) Pathologist [facility] Neutrophil abs 8.1(H) 1.5 - 6.5 K/cumm Imm gran abs 0.0 0.0 - 0.1 K/cumm [facility] Lymphocyte abs 5.0(H) 0.8 - 3.3 K/cumm [facility] Monocyte abs 1.0(H) 0.2 - 0.8 K/cumm [facility] Eosinophil abs 0.2 0.0 - 0.5 K/cumm [facility] Basophil abs 0.1 0.0 - 0.1 K/cumm [facility] Neutrophil pct 56.0 % [facility] Comment: Interpretive Data Percent cell count reference ranges are not reported, since discordance with absolute values may lead to misinterpretation of CBC data. Current Interpretive Data was last revised on 2018. Imm gran pct 0.2 % [facility] Comment: Interpretive Data Percent cell count reference ranges are not reported, since discordance with absolute values may lead to misinterpretation of CBC data. Current Interpretive Data was last revised on 2018. Lymphocyte pct 34.4 % [facility] Comment: Interpretive Data Percent cell count reference ranges are not reported, since discordance with absolute values may lead to misinterpretation of CBC data. Current Interpretive Data was last revised on 2018. Monocyte pct 7.2 % [facility] Comment: Interpretive Data Percent cell count reference ranges are not reported, since discordance with absolute values may lead to misinterpretation of CBC data. Current Interpretive Data was last revised on 2018. Eosinophil pct 1.5 % [facility] Comment: Interpretive Data Percent cell count reference ranges are not reported, since discordance with absolute values may lead to misinterpretation of CBC data. Current Interpretive Data was last revised on 2018. Basophil pct 0.7 % [facility] Comment: Interpretive Data Percent cell count reference ranges are not reported, since discordance with absolute values may lead to misinterpretation of CBC data. Current Interpretive Data was last revised on 2018. Blood 12/13/2024 6:44 PM ONION TOPPER 12/13/2024 6:53 PM ONION TOPPER us Fatimah Glover MD LAB BLOOD ORDERABLES Kelsea mack Result [facility] Department [place] [address] * (ABNORMAL) CBC with auto differential (12/13/2024 6:44 PM ONION TOPPER) WBC 14.5(H) 3.8 - 9.9 K/cumm Hgb 14.0 11.9 - 15.5 g/dL [facility] Hct 45.5 35.6 - 45.5 % [facility] Plt 317 150 - 400 K/cumm [facility] MPV 9.8 9.1 - 12.3 fL [facility] RBC 5.33(H) 3.90 - 5.20 M/cumm [facility] MCV 85.4 81.3 - 96.4 fL [facility] MCH 26.3(L) 27.1 - 33.3 pg [facility] MCHC 30.8(L) 32.3 - 35.7 g/dL [facility] RDW CV Not Measured 11.1 - 14.9 % [facility] RDW SD Not Measured 35.7 - 48.1 fL [facility] NRBC abs 0.00 0.00 - 0.01 K/cumm [facility] Blood 12/13/2024 6:44 PM ONION TOPPER 12/13/2024 6:53 PM ONION TOPPER Fatimah Glover MD LAB BLOOD ORDERABLES Kelsea l Result Performing Organization Address [facility] de Phone Number [facility] [address] [place] [address] * aPTT (12/13/2024 6:44 PM ONION TOPPER) aPTT 32 28 - 38 sec Comment: Interpretive Data Heparin therapeutic range: 66.0 - 100.0 seconds. Range based on correlation with therapeutic heparin activity range of 0.3 - 0.7 Units/mL. Current interpretive data was last revised on 2023. Blood 12/13/2024 6:44 PM ONION TOPPER 12/13/2024 6:55 PM ONION TOPPER Fatimah Glover MD LAB BLOOD ORDERABLES Kelsea l Result Performing Organization Address [facility] de Phone Number [facility] [place] [address] * Protime-INR (12/13/2024 6:44 PM ONION TOPPER) PT 11.1 9.7 - 13.0 sec INR 1.03 0.90 - 1.20 [facility] Comment: Interpretive data Oral anticoagulant therapeutic ranges: Venous thromboembolism prophylaxis or treatment: 2.0-3.0 CARDIOLOGY Standard range: 2.0-3.0 High-intensity range: 2.5-3.5 Refer to indication-specific guidelines for appropriate target ranges for prosthetic heart valve replacement. Current interpretive data was last revised on 2019. Blood 12/13/2024 6:44 PM ONION TOPPER 12/13/2024 6:55 PM ONION TOPPER Fatimah Glover MD LAB BLOOD ORDERABLES Kelsea l Result Performing Organization Address [facility] [place] [address] * Type and screen (12/13/2024 6:44 PM ONION TOPPER) Pathologist [facility] ABO Rh A Positive Ella, indirect Negative [facility] Blood 12/13/2024 6:44 PM ONION TOPPER 12/13/2024 7:12 PM ONION TOPPER Narrative [facility] - 12/13/2024 8:17 PM ONION TOPPER Has the patient had Daratumumab or Isatuximab in the past 6 months?->Unknown Fatimah Glover MD LAB BLOOD BANK TEST ORDER LOUIE Final Result Performing Organization Address [facility] de Phone Number [facility] [place] [address] * Comprehensive metabolic panel (12/13/2024 6:44 PM ONION TOPPER) Pathologist [facility] Sodium 145 135 - 145 mmol/L Potassium, pl 4.3 3.3 - 4.9 mmol/L [facility] Chloride 108 97 - 110 mmol/L [facility] CO2 26 22 - 32 mmol/L [facility] Anion gap 11 2 - 15 mmol/L [facility] BUN 16 6 - 25 mg/dL [facility] Creatinine 1.05 0.60 - 1.10 mg/dL [facility] Glucose 96 70 - 199 mg/dL [facility] Comment: Interpretive Data Fasting glucose >/= [...] Calcium 9.7 8.5 - 10.3 mg/dL [facility] Bilirubin, total <0.2 0.1 - 1.2 mg/dL [facility] Protein, pl 7.7 6.5 - 8.5 g/dL [facility] Albumin 4.2 3.5 - 5.0 g/dL [facility] Alk phos 123 40 - 130 Units/L [facility] ALT 12 7 - 45 Units/L [facility] AST 18 10 - 45 Units/L [facility] Blood 12/13/2024 6:44 PM ONION TOPPER 12/13/2024 6:53 PM ONION TOPPER Fatimah Glover MD LAB BLOOD ORDERABLES Kelsea l Result [facility] Department [place] [address] * POCT creatinine (12/13/2024 6:42 PM ONION TOPPER) Creatinine POC 1.1 0.6 - 1.1 mg/dL Blood 12/13/2024 6:42 PM ONION TOPPER 12/13/2024 6:42 PM ONION TOPPER Fatimah Glover MD LAB POCT ORDERABLES - DEV ICE Final Result [facility] Department [place] [address] * [place] Outside Reference (12/13/2024 10:30 AM ONION TOPPER) Impressions RAD_PACS_[facility] - 12/13/2024 10:30 AM ONION TOPPER These images are for Reference purposes only and have not been reviewed by [facility]iology. There will be no report generated by a [facility] Radiologist. Narrative [facility] - 12/13/2024 10:30 AM ONION TOPPER EXAMINATION: Images For Reference Purposes Only Madelyn Vicente MD PhD IMG US PROCEDURES Kelsea l Result Performing Organization Address [facility] Co de Phone Number [facility] * MSK CT Outside Reference (12/13/2024 10:29 AM ONION TOPPER) Impressions [facility] - 12/13/2024 10:29 AM ONION TOPPER These images are for Reference purposes only and have not been reviewed by [facility]. There will be no report generated by a [facility] Radiologist. Narrative [facility] - 12/13/2024 10:29 AM ONION TOPPER EXAMINATION: Images For Reference Purposes Only Result [facility] Madelyn Vicente MD PhD IMG CT PROCEDURES Kelsea l Result Performing Organization Address [facility] de Phone Number [facility] from Last 3 Months Additional Health Concerns Infection Onset Date Last Indicated MDR gram neg/ESBL 07/23/2024 08/01/2024 Insurance [facility] MEDICARE ADVANTAGE [facility] Address: [facility] [address] [place] [address] [facility] MEDICARE [facility] Address: [address] [address] [place] [address] [facility] MEDICARE AD[facility]AGE [facility] Address: [address] [address] [place] [address] Advance Directives For more information, please contact: [phone] * Full Code (Latest Code Status on [...] 11:02 AM 07/03/2024 11:02 AM Care Teams Deburring Technician Relationship Specialty Start Date End Date Mor Blancas MD [address] [place] [address] PCP - General Emergency Medicine 03/25/24 Flynn Ma MD [address] [facility] [address] [place], [place] [id number] Medical Oncologist/Community Outreach Worker Medical Oncology 09/28/18 Colleen Diaz MD [address] [place] [address] Referring Physician Nephrology 03/24/22 Derek Wilson MD [address] [place] [address] Referring Physician Obstetrics and Gynecology 06/26/23 Mar Jay MD [address] [facility] [address] Surgeon Vascular Surgery 08/24/23 Mitch Austin DO [address] [place] [address] Surgeon Surgery 09/26/23 Madelyn Vicente MD PhD [address] [facility] [id number] [place], [place] [id number] Registered Nurse Vascular Surgery 07/05/24 Eric Washington MD [address] [place] [address] Consulting Physician Plastic Surgery 07/29/24
--- OUTSIDE RECORDS SUMMARY | 2025-03-04 22:45 | XMS_ITS | Encounter Summary ---
Author Organization [facility] Address [address] [place] [address] Phone Care Team Providers Care Improvement Spec Name Role Phone Flynn Ma MD Unavailable [phone] Colleen Diaz MD Unavailable Derek Wilson MD Unavailable [phone] Mar Jay MD Unavailable [phone] Mitch Austin DO Unavailable [phone] Mor Blancas MD Primary Care Provide r Madelyn Vicente MD PhD Unavailable [phone] Eric Washington MD Unavailable [phone] Encounter Details Date Type Department Care Team (Late st Contact Info) Description 03/04/2025 Orders Only [facility] Hematology [address] [facility] Floor [address] [place] [address] Stephani Robertson Acute lower limb ischemia (Primary Dx) Social History Tobacco Use Types Packs/Day Years Used Date Smoking Tobacco: Former Cigarettes 1 37.5 1 987 - 04/08/2024 Passive Smoke Exposure: Past Smokeless Tobacco: Never Comments:cutting down 4-6 a day Alcohol Use Standard Drinks/Week Comments No 0 (1 standard drink = 0.6 oz pur e alcohol) [facility] Utilities Answer Date Recorded In the past 12 months has th e electric, gas, oil, or water [employer] threatened to shut off services in your [...] attend chur ch or buddhist services? Never 12/16/2024 Do you belong to any clubs o r organizations such as voodoo groups, unions, fraternal or athletic groups, or [...] any time in the past 12 m [facility], were you homeless or living in a snf (including now)? No 12/16/2024 Personal Safety Answer Date Recorded Have you ever been in or are you currently in a harmful physical or emotional relationship or is someone making you feel afraid or unsafe? Denies 12/19/2024 Comments No Sex and Gender Information Value Date Recorded Sex Assigned at Not on file 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 TIRE CHANGER Gender Identity Female 03/14/2022 6:19 PM CDT [...] documented as of this encounter Care Teams Improvement Spec Relationship Specialty Start Date End Date Mor Blancas MD [address] [place] [address] PCP - General Emergency Medicine 03/25/24 Flynn Ma MD [address] [facility] [address] [place] [address] Medical Oncologist/Molding Sander Medical Oncology 09/28/18 Colleen Diaz MD [address] [place] [address] Referring Physician Nephrology 03/24/22 Derek Wilson MD [address] [place] [address] Referring Physician Obstetrics and Gynecology 06/26/23 Mar Jay MD [address] [place] [address] Surgeon Vascular Surgery 08/24/23 Mitch Austin DO [address] [place] [address] Surgeon Surgery 09/26/23 Madelyn Vicente MD PhD [address] [facility] [id number] [place] [address] Registered Nurse Vascular Surgery 07/05/24 Eric Washington MD [address] [place] [address] Consulting Physician Plastic Surgery 07/29/24 documented as of this encounter
--- OUTSIDE RECORDS SUMMARY | 2025-03-04 22:45 | XMS_ITS | Referral Summary ---
Author Organization [facility] Address [address] [place] [address] Care Team Providers Care Communications Clerk Name Role Phone Flynn Ma MD Unavailable Colleen Diaz MD Unavailable Derek Wilson MD Unavailable [phone] Mar Jay MD Unavailable Mitch Austin DO Unavailable [phone] Mor Blancas MD Primary Care Provide r Madelyn Vicente MD PhD Unavailable [phone] Eric Washington MD Unavailable Encounters Date Type Department Care Team Description 03/04/2025 Orders Only [facility] Hematology [address] [facility] Floor 6 [place] [address] Stephani Robertson Acute lower limb ischemia (Primary Dx) 01/30/2025 Telephone [facility] Pre Anesthesia Testing [address] [place] [address] Karen Delarosa 01/20/2025 Orders Only [facility] Surgery [address] [facility] Floor 1 [place] [address] Madelyn Vicente MD PhD 01/17/2025 Telephone [facility] Surgery [address] [facility] Floor 1 [place] [address] Greg Kat CMA 01/17/2025 Orders Only [facility] Surgery [address] [facility] Floor 1 [place] [address] Madelyn Vicente MD PhD Encounter for surgical aftercare following surgery on the circulatory system (Primary Dx); Presence of other vascular implants and grafts 01/16/2025 Telephone [facility] Surgery [address] [facility] Floor 1 [place] [address] Greg Kat CMA 01/09/2025 Orders Only [facility] Oncology [facility] [facility] Floor 6 [place] [address] Mireya Briceno RN Iron deficiency anemia, unspecified iron deficiency anemia type (Primary Dx) 01/08/2025 11:20 AM CDT Lab [facility] ([facility]) [address] [place] [address] Anemia, unspecified type 01/08/2025 9:15 AM CDT Office Visit [facility] Surgery [address] [place] [address] 8th [place] [address] [place] [address] Madelyn Vicente MD PhD Atherosclerosis of [place] arteries of extremities with intermittent claudication, bilateral legs (Primary Dx); Critical limb ischemia of right lower extremity (HCC) 01/02/2025 3:15 PM CDT Ancillary Procedure [facility] Vascular Lab at the [facility] Advanced Medicine [address] [place] [address] 8th [place] [address] [place] [address] Encounter for surgical aftercare following surgery on the circulatory system; Presence of other vascular implants and grafts 12/30/2024 Orders Only [facility] Surgery [address] [facility] Floor 1 [place] [address] Madelyn Vicente MD PhD Encounter for surgical aftercare following surgery on the circulatory system (Primary Dx); Presence of other vascular implants and grafts 12/27/2024 Documentation [facility] Oncology [address] [facility] Floor 6 [place] [address] January, RMA Appointment 12/19/2024 Orders Only [facility] Hematology [address] [facility] Floor 6 [place] [address] Manasa Quiroz NP Hospital discharge follow-up (Primary Dx) 12/19/2024 7:39 AM CDT Anesthesia Event [facility] Operating Room 1 [place] [address] Justin Jose MD PhD Carver, Shea Elizabeth, MD 12/19/2024 7:30 AM CDT - 12/19/2024 10:05 AM CDT Surgery [facility] Operating Room 1 [place] [address] Claude Garza MD Angiogram 12/13/2024 6:34 PM METROLOGIST - 12/19/2024 3:34 PM CDT Hospital Encounter [address] [address] Fatimah Glover MD Rubin, Brian G., MD Critical limb ischemia of right lower extremity (HCC) (Primary Dx); Cold right foot; Arterial occlusion Discharge Disposition: Discharge to home or self care 12/17/2024 10:05 AM CDT Ancillary Procedure [facility] Vascular Lab IP [address] [facility] [address] [place] [address] 12/16/2024 1:26 PM CDT Anesthesia Event [facility] Operating Room 1 [place] [address] Naman Magaña MD Dippolito, Jenny Irene, NP 12/16/2024 1:30 PM CDT - 12/16/2024 5:30 PM CDT Surgery [facility] Operating Room 1 [place] [address] Claude Garza MD FEMORAL EMBOLECTOMY/THROMBECTO MY- suction thrombectomy with Penumbra and RLE angiogram 12/13/2024 Telephone [facility] Surgery [address] [facility] Floor 1 [place] [address] Greg Kat CMA 12/13/2024 Documentation [facility] Vascular Surgery [facility] Medical Office Building [address] [place] [address] Madelyn Vicente MD PhD 12/13/2024 10:30 AM METROLOGIST - 12/13/2024 11:59 PM METROLOGIST Hospital Encounter [facility] [address] [place] [address] Discharge Disposition: Discharge to home or self care 12/13/2024 10:29 AM METROLOGIST - 12/13/2024 11:59 PM METROLOGIST Hospital Encounter [facility] [address] [place] [address] Discharge Disposition: Discharge to home or self care 12/13/2024 Telephone [facility] Surgery [address] [facility] Floor 1 [place] [address] Greg Kat CMA 12/12/2024 Telephone [facility] Vascular Surgery [address] [place] [address] Medical Office Building 3 [address] [place] [address] Franco Robertson, A from Last 3 Months [...] underwent emergent OR s/p thrombectomy of R REGULATORY INTERN, bypass graft, below knee popliteal. R groin [...] 07/02/2024 Assessment & Plan (10/16/2024 2:41 PM METROLOGIST): Has chronic abdominal pain due to likely [...] ordered Assessment & Plan (10/16/2024 2:42 PM METROLOGIST): Hx RLE arterial occlusion/DVT 07/2023; h/o splenic [...] 07/01/2024 Assessment & Plan (10/16/2024 2:40 PM METROLOGIST): Patient with previous right lower extremity bypass [...] 07/22: emergent OR s/p thrombectomy of R REGULATORY INTERN, bypass graft, below knee popliteal. R groin [...] 06/26/2023. Held Plavix/Eliquis due to bleeding. 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 Follows with [facility]. Resolved Problems Problem Noted Date Diagnosed Date Resolved Date Urinary tract infection 08/07/2023 06/0 12/2023 Overview (08/07/2023): Recently hospitalized at [place] for pyelonephritis. Discharged on Keflex (08/01-08/10). - Continue cephalexin 500 mg BID. Assessment & Plan (08/07/2023 10:53 PM CDT): Recently hospitalized at [place] for pyelonephritis. Discharged on Keflex (08/01-08/10). - [...] drink = 0.6 oz pur e alcohol) [facility] Utilities Answer Date Recorded In the past 12 months has e [employer], gas, oil, or water [employer] threatened to shut off services in your [...] often do you attend chur ch or restorationism services? Never 12/16/2024 Do you belong to any clubs o r organizations such as protestant groups, unions, fraternal or athletic groups, or [...] time in the past 12 m [facility], were you homeless or living in a halfway (including now)? No 12/16/2024 Personal Safety Answer Date Recorded Have you ever been in or are you currently in a harmful physical or emotional relationship or is someone making you feel afraid or unsafe? Denies 12/19/2024 Comments No Sex and Gender Information Value Date Recorded Sex Assigned at Not on file 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 METROLOGIST Gender Identity Female 03/14/2022 6:19 PM CDT [...] on file Medical Devices Implanted Type Area Traffic Engineer Device Identifier Shelf Expiration Date Model / Serial / Lot [employer] R[employer] Patch Vascuguard 0.88cm [id number] - [id number] Implanted:Qty : 1 on 07/01/2024 by Madelyn Vicente MD PhD at [facility] Other - see comments Right: Common Femoral Artery [employer] Riki [id number] 10/02/2025 [id number] / / [id number]- [id number] [employer] Riki Stent Peripheral [id number] m 6fr Self-Expandin g Blue Strl [id number] 30 - S00 - [id number] Implanted:Qty : 1 on 12/16/2024 by Claude Garza MD at [facility] Stent Right: Femoral [employer] Riki [id number] 05/20/2029 [id number] / / [id number] [employer] Stent Peripheral [id number] m 6fr Self-Expandin g Blue Strl [id number] 30 - S00 - [id number] Implanted:Qty : 1 on 12/16/2024 by Claude Garza MD at [facility] Stent Right: Femoral [employer] Riki [id number] 05/20/2029 [id number] / / [id number] [employer] System Closure Repair Femoral Artery Suture Mediated Perclose Prostyle 79410-25 - [id number] Implanted:Qty : 1 on 12/16/2024 by Claude Garza MD at [facility] Vascular Closure Device Left: Groin [employer] [id number] 08/08/2026 [id number] / / [id number] [employer] System Closure Repair Femoral Artery Suture Mediated Perclose Prostyle 30362-03 - [id number] Implanted:Qty : 1 on 12/16/2024 by Claude Garza MD at [facility] Vascular Closure Device Left: Groin [employer] [id number] 02/05/2025 30389-17 / / [id number] [employer] Restrata Mini Matrix 100mg Micronized Powder Rmini-100 - [id number] Implanted:Qty : 1 on 07/16/2024 by Madelyn Vicente MD PhD at [facility] Right: Groin [employer] 07/11/2025 RMINI-10 0 / / [id number] [employer] Riki Patch Vascuguard 0.88cm [id number] - [id number] - [id number] Implanted:Qty : 1 on 07/22/2024 by Madelyn Vicente MD PhD at [facility] Right: Knee [employer] Riki [id number] 02/19/2026 [id number] / [id number]- [id number] / [id number]- [id number] [employer] System Closure Repair Femoral Artery Suture Mediated Perclose Prostyle 38665-88 - [id number] Implanted:Qty : 1 on 12/19/2024 by Claude Garza MD at [facility] Right: Groin [employer] [id number] 03/08/2026 21565-55 / [id number] Procedures Procedure Name Priority Date/Time Associated Diagnosis [...] HOUR IP Routine 12/19/2024 9:52 AM CDT CO AN PROCEDURE PLACEHOLDER Routine 12/19/2024 9:45 AM CDT CO AN PROCEDURE PLACEHOLDER Routine 12/19/2024 9:44 AM [...] LOW RANGE Routine 12/16/2024 1:59 PM CDT CO AN PROCEDURE PLACEHOLDER Routine 12/16/2024 1:53 PM CDT CO AN PROCEDURE PLACEHOLDER Routine 12/16/2024 1:51 PM CDT CO AN PROCEDURE PLACEHOLDER Routine 12/16/2024 1:50 PM CDT CO AN ELECTIVE ENDOTRACHEAL AIRWAY Routine 12/16/2024 1:50 [...] AM CDT EGFR Timed 12/15/2024 12:37 AM METROLOGIST BASIC METABOLIC PANEL Timed 12/15/2024 12:37 AM METROLOGIST CBC WITHOUT DIFFERENTIAL Timed 12/15/2024 12:37 AM METROLOGIST APTT STAT 12/15/2024 12:37 AM METROLOGIST APTT STAT 12/14/2024 5:25 PM METROLOGIST APTT STAT 12/14/2024 9:22 AM METROLOGIST APTT STAT 12/14/2024 2:10 AM METROLOGIST CTA ABDOMINAL AORTA AND BILATERAL ILIOFEMORAL RUNOFF ED Urgent/IP Urgent 12/13/2024 8:00 PM METROLOGIST CO CRITICAL CARE ILL/INJURED PATIENT INIT 30-74 MIN Routine 12/13/2024 7:12 PM METROLOGIST EGFR STAT 12/13/2024 6:44 PM METROLOGIST DIFFERENTIAL AUTO STAT 12/13/2024 6:4 4 PM METROLOGIST PROTIME-INR STAT 12/13/2024 6:44 PM METROLOGIST APTT STAT 12/13/2024 6:44 PM METROLOGIST TYPE AND SCREEN STAT 12/13/2024 6:44 PM METROLOGIST COMPREHENSIVE METABOLIC PANEL STAT 12/13/2024 6:44 PM METROLOGIST CBC WITH AUTO DIFFERENTIAL STAT 12/13/2024 6:44 PM METROLOGIST POCT CREATININE - DEVICE Routine 12/13/2024 6:42 PM METROLOGIST US TRANSFER OF OUTSIDE FILMS Routine 12/13/2024 10:[address] OUTSIDE REFERENCE Routine 12/13/2024 10:29 AM METROLOGIST Diagnosis unknown from Last 3 Months Results * (ABNORMAL) Differential, auto (01/08/2025 10:11 AM CDT) Neutrophil abs 9.52(H) 1.50 - 6.50 K/cumm Imm gran abs 0.04 0.00 - 0.10 K/cumm [facility] Lymphocyte abs 4.14(H) 0.80 - 3.30 K/cumm [facility] Monocyte abs 0.89(H) 0.20 - 0.80 K/cumm [facility] Eosinophil abs 0.19 0.00 - 0.50 K/cumm [facility] Basophil abs 0.10 0.00 - 0.10 K/cumm [facility] Neutrophil pct 63.9 % [facility] Comment: Interpretive Data Percent cell count reference ranges are not reported, since discordance with absolute values may lead to misinterpretation of CBC data. Current Interpretive Data was last revised on 2018. Imm gran pct 0.3 % [facility] Comment: Interpretive Data Percent cell count reference ranges are not reported, since discordance with absolute values may lead to misinterpretation of CBC data. Current Interpretive Data was last revised on 2018. Lymphocyte pct 27.8 % [facility] Comment: Interpretive Data Percent cell count reference ranges are not reported, since discordance with absolute values may lead to misinterpretation of CBC data. Current Interpretive Data was last revised on 2018. Monocyte pct 6.0 % [facility] Comment: Interpretive Data Percent cell count reference ranges are not reported, since discordance with absolute values may lead to misinterpretation of CBC data. Current Interpretive Data was last revised on 2018. Eosinophil pct 1.3 % [facility] Comment: Interpretive Data Percent cell count reference ranges are not reported, since discordance with absolute values may lead to misinterpretation of CBC data. Current Interpretive Data was last revised on 2018. Basophil pct 0.7 % [facility] Comment: Interpretive Data Percent cell count reference ranges are not reported, since discordance with absolute values may lead to misinterpretation of CBC data. Current Interpretive Data was last revised on 2018. Blood 01/08/2025 10:1 1 AM CDT 01/08/2025 10:36 AM CDT Kirsten Roa NP LAB BLOOD ORDDorie TUTTLE Final Result [facility] Department [place] [address] * (ABNORMAL) CBC with auto differential (01/08/2025 10:11 AM CDT) WBC 14.88(H) 3.80 - 9.90 K/cumm Hgb 10.7(L) 11.9 - 15.5 g/dL [facility] Hct 34.4(L) 35.6 - 45.5 % [facility] Plt 338 150 - 400 K/cumm [facility] MPV 9.9 9.1 - 12.3 fL [facility] RBC 3.95 3.90 - 5.20 M/cumm [facility] MCV 87.1 81.3 - 96.4 fL [facility] MCH 27.1 27.1 - 33.3 pg [facility] MCHC 31.1(L) 32.3 - 35.7 g/dL [facility] RDW CV 25.1(H) 11.1 - 14.9 % [facility] RDW SD 77.6(H) 35.7 - 48.1 fL [facility] NRBC abs 0.00 0.00 - 0.01 K/cumm [facility] Blood 01/08/2025 10:1 1 AM CDT 01/08/2025 10:36 AM CDT Kirsten Roa NP LAB BLOOD ORDDorie TUTTLE Final Result [facility] Department [place] [address] * US Arterial Duplex Lower Extremity Right Limited (01/02/2025 4:04 PM CDT) Anatomical Region Laterality Modality Vascular Right Ultrasound 01/02/2025 3:02 PM CDT Narrative 01/03/2025 9:05 PM CDT [facility] - Department of Vascular Surgery, Vascular Laboratory [address] [place] [address] Lower Extremity Arterial Duplex - Bypass Graft Report Patient Name: JEFFERY HAMILTON : 1970 Study Date: 01/02/2025 3:02:10 PM Gender: F Tech: Location: [facility] Ref Provider: MADELYN VICENTE Quality: [...] 55 cm/s Right Value Units FINDINGS: Performing Executive Vice President And Chief Financial Officer: Alta Palacios RVT, RDMS. Right Leg: The [...] See Ankle/Brachial Index report. 2. Patent right REGULATORY INTERN stent. 3. Patent right lower extremity bypass [...] STUDIES: Previous study on 12-17-2024. Patent right REGULATORY INTERN stent. Patent right BPG. DISCLAIMER: The study [...] above. Electronically Signed By: Claude Garza MD [facility] [phone] 01/03/2025 8:31:22 PM CDT Procedure Note Claude Garza MD - 01/03/2025 [facility] - Department of Vascular Surgery,Vascular Laboratory [address] [place] [address] Lower Extremity Arterial Duplex - Bypass Graft Report Patient Name: JEFFERY HAMILTON : 1970 Study Date: 01/02/2025 3:02:10 PM Gender: F Tech: Location: [facility] Ref Provider: MADELYN VICENTE Quality: Adequate Order Provider: MADELYN VICENTE PROCEDURES: Arterial Report: Common femoral - above knee Popliteal Bypass Graft. INDICATIONS: Z48.812 Encounter for surgical aftercare [facility] and Z95.828 Presence of other vascular implants and grafts. MEASUREMENTS: Right Value Units Rt Inflow Artery 102 cm/s Rt Proximal Anastomosis 75 cm/s Rt Proximal Graft 64 cm/s Rt Mid Graft 125 cm/s Rt Distal Graft 353 cm/s Rt Distal Anastomosis 109 cm/s Rt Outflow Artery 55 cm/s Right Value Units FINDINGS: Performing Executive Vice President And Chief Financial Officer: Alta Palacios RVT, RDMS. Right Leg: The [...] See Ankle/Brachial Index report. 2. Patent right REGULATORY INTERN stent. 3. Patent right lower extremity bypass graft with a >75% stenosis at thedistal graft level. HISTORY: 12-19-2024 right leg angiogram - above knee stenosis 12-16-2024 femoral embolectomy/thrombectomy, BPG thrombectomy, right legangioplasty 10-16-2024 right leg angiogram, right leg angioplasty 07-22-2024 right BPG thrombectomy 07-01-2024 right femoral-popliteal BPG Lower limb ischemia, CKD, DVT, HTN, PAD, PVD. PREVIOUS STUDIES: Previous study on 12-17-2024. Patent right REGULATORY INTERN stent. Patent right BPG. DISCLAIMER: The study [...] above. Electronically Signed By: Claude Garza MD [facility] [phone] 01/03/2025 8:31:22 PM CDT Madelyn Vicente MD PhD IMG US PROCEDURES Kelsea l Result * US Arterial Doppler Lower Extremity Bilateral (01/02/2025 4:04 PM CDT) Anatomical Region Laterality Modality Vascular Bilateral Ultrasound 01/02/2025 3:29 PM CDT Narrative 01/03/2025 9:06 PM CDT [facility] - Department of Vascular Surgery, Vascular Laboratory [address] [place] [address] Lower Extremity Arterial Doppler Report Patient Name: JEFFERY HAMILTON : 1970 Study Date: 01/02/2025 3:29:00 PM Gender: F Tech: Alta Palacios T, RDMS Location: [facility] Ref Provider: MADELYN VICENTE Quality: Adequate Order Provider: MADELYN VICENTE PROCEDURES: Arterial Report: Bilateral lower extremity arterial Doppler exam at rest. INDICATIONS: Z48.812 Encounter for surgical aftercare following surgery on the circulatory system. MEASUREMENTS: Right Value Units Left Value Units Rt Brachial Pressure 156 mmHg Lt Brachial Pressure 152 mmHg Rt TRAVELING ENGINEER Pressure 138 mmHg Lt TRAVELING ENGINEER Pressure 120 mmHg Rt DPA Pressure 126 mmHg Lt DPA Pressure 114 mmHg Rt 1st Digit Pressure 90 mmHg Lt 1st Digit Pressure 122 mmHg Rt PT KAROLYN Resting 0.88 Lt PT KAROLYN Resting 0.77 Rt AT KAROLYN Resting 0.81 Lt AT KAROLYN Resting 0.73 Rt Digit/Arm Index 0.58 Lt Digit/Arm Index 0.78 Right Value Units Left Value Units FINDINGS: Performing Executive Vice President And Chief Financial Officer: Alta Palacios RVT, RDMS. Right Common Femoral [...] above. Electronically Signed By: Claude Garza MD [facility] [phone] 01/03/2025 8:56:56 PM CDT Procedure Note Claude Garza MD - 01/03/2025 [employer] [facility] - Department of Vascular Surgery,Vascular Laboratory [address] [place], [place] [address] Lower Extremity Arterial Doppler Report Patient Name: JEFFERY HAMILTON : 1970 Study Date: 01/02/2025 3:29:00 PM Gender: F Tech: Alta Palacios RVT, RDMS Location: [facility] Provider: MADELYN VICENTE Quality: Adequate Order Provider: MADELYN VICENTE PROCEDURES: Arterial Report: Bilateral lower extremity arterial Doppler exam at rest. INDICATIONS: Z48.812 Encounter for surgical aftercare following surgery on [facility] system. MEASUREMENTS: Right Value Units Left Value Units Rt Brachial Pressure 156 mmHg Lt Brachial Pressure 152 mmHg Rt TRAVELING ENGINEER Pressure 138 mmHg Lt TRAVELING ENGINEER Pressure 120 mmHg Rt DPA Pressure 126 mmHg Lt DPA Pressure 114 mmHg Rt 1st Digit Pressure 90 mmHg Lt 1st Digit Pressure 122 mmHg Rt PT KAROLYN Resting 0.88 Lt PT KAROLYN Resting 0.77 Rt AT KAROLYN Resting 0.81 Lt AT KAROLYN Resting 0.73 Rt Digit/Arm Index 0.58 Lt Digit/Arm Index 0.78 Right Value Units Left Value Units FINDINGS: Performing Executive Vice President And Chief Financial Officer: Alta Palacios RVT, RDMS. Right Common Femoral [...] above. Electronically Signed By: Claude Garza MD [facility] [phone] 01/03/2025 8:56:56 PM CDT us Madelyn Vicente [...] FLUOROSCOPY PROCEDURES Fin al Result [id number] * CO AN PROCEDURE PLACEHOLDER (12/19/2024 9:45 AM CDT) [...] procedure well with no complications us Justin Joes MD PhD ANESTHESIA ORDERABLES Final R esult * CO AN PROCEDURE PLACEHOLDER (12/19/2024 9:44 AM CDT) [...] POC 40 35 - 45 mmHg [facility] pO2, Art POC 160(H) 83 - 108 mmHg [facility] Na, POC 141 135 - 145 mmol/L [facility] K POC 4.0 3.3 - 4.9 mmol/L [facility] Comment: Interpretive Data Not all point of care methods assess for hemolysis. Confirm with instrument and retest K+ if not consistent with clinical signs and symptoms. Current Interpretive Data was last revised on 2024. Cl, POC 111(H) 97 - 110 mmol/L [facility] Ionized Ca, POC 4.87 4.50 - 5.10 mg/dL [facility] Glucose, POC 94 70 - 199 mg/dL [facility] Lactate, POC 1.2 0.7 - 2.0 mmol/L [facility] SO2 (pedrito) arterial 100(H) 90 - 95 % [facility] Base excess, POC 5.0 mmol/L [facility] HCO3, Art POC 29 20 - 30 mmol/L [facility] Hct, POC 29.0(L) 36.3 - 45.3 % [facility] Total Hb, POC 9.5(L) 11.9 - 15.5 g/dL [facility] Blood 12/19/2024 9:01 AM CDT 12/19/2024 9:01 AM CDT Claude Garza MD LAB POCT ORDERABLES - DEVICE F inal Result [facility] Department [place] [address] * POCT Activated clotting time, low range (12/19/2024 8:51 AM CDT) Pathologist [facility] ACT 133 123 - 168 sec POC Performer [id number] [facility] POC Device Number [id number] [facility] Blood 12/19/2024 8:51 AM CDT 12/19/2024 8:51 AM CDT us Claude Garza MD LAB POCT ORDERABLES - DEVICE F inal Result [facility] Department [place] [address] * Airway (12/19/2024 8:41 AM CDT) Narrative [...] JAK2/CALR/MPL testing cascade (12/18/2024 11:26 PM CDT) [facility] JAK2 V617F Not Detected Not Detected [facility] JAK2 V617F Interpretation Not detected: JAK2 V617F mutation was not detected. As ordered, reflex testing for CALR and MPL mutations will be performed and reported separately. A negative JAK2 V617F result may be caused by one of several factors, including absence of Myeloproliferativ e Neoplasm (MPN) or presence of JAK2 [id number] MPN. A JAK2 V617F mutation is detected in 98% of patients with polycythemia vera (PV), 55% of patients with essential thrombocythemia (ET), and 60% of patients with primary myelofibrosis (PMF). This JAK2 V617F test result should be interpreted within the context of clinical and pathological findings for a definitive diagnosis. [facility] JAK2 V617F Specimen Blood [facility] JAK2 V617F Result Review Final report reviewed by: PAUL Devi([facility]) Interchange Agent, on 12/27/2024 11:23:10 CDT. [facility] Comment: Interpretive Data Method: The assay detects the JAK2 V617F ([id number]: c.[id number]) mutation using PCR primers and allele-specific dye-labeled oligonucleotides that exactly match the mutant or normal alleles. When perfectly hybridized to the template DNA sequence, the labeled oligonucleotides are cleaved by the 5 -> 3 exonuclease activity of DNA polymerase. Cleavage during the exponential phase of PCR releases the market reporter dye from the quencher and the signal [...] molecular profiling in myeloproliferative neoplasms. Blood. 2022Jan 26;141(16):5387 4 856. PMCID: [id number] This test was performed at: [facility], [facility], CLIA#[id number], Connie Stacy, Ph.D., [place], [address], [place] Current interpretive data was last revised 2024. Blood 12/18/2024 11:2 6 PM CDT 12/19/2024 8:54 AM CDT April Villarreal RN DERMATOLOGY LAB GENETIC TESTING F inal Result RITCHIE [facility] [place] [address] [facility] * CALR with reflex to MPL (myeloproliferative [...] mutation analysis: Genomic DNA was extracted and Adolphus sequencing used to evaluate for mutations in [...] suspicion is high for polycythemia vera and [id number] (JAK2B, JAK2M, or JAK2V) was tested negative, JAK2 Exon 12 analysis could be considered (JAKXB or JAKXM). Signing Pathologist: Phan Underwood D.O. MGenaroS. ADDITIONAL INFORMATION This test was developed and its performance characteristics determined by [facility] in a manner consistent with CLIA requirements. This test has not been cleared or approved by the U.S. Food and Drug Administration. Test Performed by: [facility] [place] [address] Newcomer Hostess: Artis Lauren Ph.D.; CLIA# [id number] Blood 12/18/2024 11:2 6 PM CDT 12/27/2024 12:09 PM CDT Narrative RITCHIE PLASCENCIA - 01/06/2025 10:29 AM CDT CALR, MPL Reflex order reflexed from JAK2/CALR/MPL testing cascade. us April Villarreal NP LAB BLOOD ORDERABLES Final Result RITCHIE PLASCENCIA [facility] [place] [address] * (ABNORMAL) Lupus Anticoagulant Panel plus Reflexes [...] screen ratio 1.23(H) 0.00 - 1.[address] confirm ratio 1.[address] [facility] S/C Ratio 0.99 0.00 - 1.20 Ratio [facility] SCT Screen Ratio 0.83 0.00 - 1.16 Ratio [facility] Lupus anticoagulant, interp Negative [facility] Comment: Interpretive data Lupus anticoagulants (LA) are [...] lupus anticoagulant detection. J Thromb Haemost. 2009; 7:4464-0312. 2. Rayshawn Chaney et al. International consensus statement on an update of the classification criteria for definite antiphospholipid syndrome (APS). J Thromb Haemost. 2006; 4:295-306. Current interpretive data was last revised on 2018 Blood 12/18/2024 11:2 6 PM CDT 12/19/2024 12:50 AM CDT us April Rocha Phil SUN LAB BLOOD ORDERABLES Final Result Performing Organization Address City/[facility] Co de Phone Number RITCHIE [facility] Department [place] [address] * (ABNORMAL) eGFR (12/18/2024 11:26 PM CDT) [...] ORDERABLES Final Res ult Performing Organization Address [facility]/ZIP Co de Phone Number [facility] [place] [address] * Cardiolipin antibody, IgG (12/18/2024 11:26 PM [...] ARCHANA. These results were obtained with the [employer] 2200 System. Cardiolipin IgG values obtained with different manufacturers' assay methods may not be used interchangeably. Current interpretive data was last revised on 2017. Blood 12/18/2024 11:2 6 PM CDT 12/19/2024 12:34 AM CDT us April Villarreal RN DERMATOLOGY LAB BLOOD ORDERABLES Final Result RITCHIE [facility] Department [place] [address] * Beta 2 glycoprotein IgM Ab (12/18/2024 [...] factor. These results were obtained with the [employer] BioPlex 2200 System. Beta-2 GP1 IgM values obtained with different manufacturers' assay methods may not be used interchangeably. Current interpretive data was last revised on 2017. Blood 12/18/2024 11:2 6 PM CDT 12/19/2024 12:35 AM CDT April Villarreal RN DERMATOLOGY LAB BLOOD ORDERABLES Final Result [facility] [place] [address] * Beta 2 glycoprotein IgG Ab (12/18/2024 11:26 PM CDT) [facility] Beta-2 glycoprotein I, IgG <1.4 <=19.9 units/mL Comment: Interpretive Data Negative: <20 U/mL Positive: > or = 20 U/mL Beta-2 glycoprotein 1 (Beta-2 GP1) antibodies are a more specific marker of thrombotic risk. It is expected that some samples will be ACL positive and Beta- 2 [id number]. In order to improve specificity, the International Congress on Antiphospholipid Antibodies recommends Beta-2 GP1 antibodies of IgG or IgM isotype (> the 99th percentile), obtained twice, at least 12 weeks apart, to support a diagnosis of antiphospholipid syndrome. The cutoff for this assay was developed from data based on the 99th percentile. These results were obtained with the [employer] BioPlex 2200 System. Beta 2GP1 IgG values obtained with different manufacturers' assay methods may not be used interchangeably. Current interpretive data was last revised on 2017. Blood 12/18/2024 11:2 6 PM CDT 12/19/2024 12:35 AM CDT April Carmonadorie Vilalrreal RN DERMATOLOGY LAB BLOOD ORDERABLES Final Result RITCHIE PLASCENCIA [facility] [place] [address] * Cardiolipin antibody, IgM (12/18/2024 11:26 PM [...] antibodies. These results were obtained with the [employer] 2200 System. Cardiolipin IgM values obtained with different manufacturers' assay methods may not be used interchangeably. Current interpretive data was last revised on 2017. Blood 12/18/2024 11:2 6 PM CDT 12/19/2024 12:34 AM CDT Apriltulio Rocha Phil RN DERMATOLOGY LAB BLOOD ORDERABLES Final Result RITCHIE [facility] Department [place] [address] * [facility] profile (12/18/2024 11:26 PM CDT) [facility] RBC-CD59 Test Completed [facility] WBC-CD59 Test Completed [facility] FLAER Test Completed [facility] Interpretation See separate Surgical Pathology report. [facility] Blood 12/18/2024 11:2 6 PM CDT 12/19/2024 12:34 AM CDT Narrative [facility] - 12/19/2024 2:05 PM CDT This test was developed and its performance characteristics determined by the [facility] Flow [facility]ometry [facility]. It has not [...] and its performance characteristics determined by the [facility]. It has not [...] for the patient s age. April Villarreal RN DERMATOLOGY LAB BLOOD ORDERABLES Final Result Performing Organization Address City/State/[facility] Co de Phone Number [facility] [place] [address] * (ABNORMAL) aPTT (12/18/2024 11:26 PM CDT) Pathologist [facility] aPTT 72(H) 28 - 38 sec Comment: Interpretive Data Heparin therapeutic range: 66.0 - 100.0 seconds. Range based on correlation with therapeutic heparin activity range of 0.3 - 0.7 Units/mL. Current interpretive data was last revised on 2023. Blood 12/18/2024 11:2 6 PM CDT 12/19/2024 12:42 AM CDT us Claude Garza MD LAB BLOOD ORDERABLES Final Res ult [facility] [place] [address] * (ABNORMAL) CBC without differential (12/18/2024 11:26 PM CDT) Pathologist [facility] WBC 13.7(H) 3.8 - 9.9 K/cumm Hgb 11.0(L) 11.9 - 15.5 g/dL [facility] Hct 36.0 35.6 - 45.5 % [facility] Plt 241 150 - 400 K/cumm [facility] MPV 11.2 9.1 - 12.3 fL [facility] RBC 4.13 3.90 - 5.20 M/cumm [facility] MCV 87.2 81.3 - 96.4 fL [facility] MCH 26.6(L) 27.1 - 33.3 pg [facility] MCHC 30.6(L) 32.3 - 35.7 g/dL [facility] RDW CV Not Measured 11.1 - 14.9 % [facility] RDW SD Not Measured 35.7 - 48.1 fL [facility] NRBC abs 0.00 0.00 - 0.01 K/cumm [facility] Blood 12/18/2024 11:2 6 PM CDT 12/19/2024 12:34 AM CDT us Claude Garza MD LAB BLOOD ORDERABLES Final Res ult [facility] [place] [place] [address] * Phosphorus (12/18/2024 11:26 PM CDT) Phosphorus, pl 2.7 2.3 - 4.5 mg/dL Blood 12/18/2024 11:2 6 PM CDT 12/19/2024 12:34 AM CDT Claude Garza MD LAB BLOOD ORDERABLES Final Res ult [facility] [place] [address] * (ABNORMAL) Magnesium (12/18/2024 11:26 PM CDT) Pathologist [facility] Magnesium 2.6(H) 1.4 - 2.5 mg/dL Blood 12/18/2024 11:2 6 PM CDT 12/19/2024 12:34 AM CDT Claude Garza MD LAB BLOOD ORDERABLES Final Res ult Performing Organization Address [facility] Co de Phone Number [facility] [place] [address] * (ABNORMAL) Basic metabolic panel (12/18/2024 11:26 PM CDT) Pathologist [facility] Sodium 146(H) 135 - 145 mmol/L Potassium, pl 3.9 3.3 - 4.9 mmol/L [facility] Chloride 105 97 - 110 mmol/L [facility] CO2 32 22 - 32 mmol/L [facility] Anion gap 9 2 - 15 mmol/L [facility] BUN 13 6 - 25 mg/dL [facility] Creatinine 1.15(H) 0.60 - 1.10 mg/dL [facility] Glucose 117 70 - 199 mg/dL [facility] Comment: Interpretive Data Fasting glucose >/= 126 [...] Calcium 9.3 8.5 - 10.3 mg/dL RITCHIE [facility] Blood 12/18/2024 11:2 6 PM CDT 12/19/2024 12:34 AM CDT us Claude Garza MD LAB BLOOD ORDERABLES Final Res ult RITCHIE [facility] [place] [address] * Surgical pathology (12/18/2024 11:25 PM CDT) Blood 12/18/2024 11:2 5 PM CDT 12/19/2024 9:23 AM CDT Narrative 12/20/2024 7:50 PM CDT EPIC results best viewed via link to PDF [facility] [place] [address] Note to Patients: This report may contain [...] Gender: F : 1970 (Age: 54) Address: [address] [place] [id number] Hospital #: [id number] Taken:12/18/2024 Received:12/19/2024 Reported: 12/20/2024 Patient Type: [facility] Inpatient Service: Vascular Location: [place] [id number] Physician(s): Caesar MedellinNGenaroPGenaro Diagnosis: Peripheral blood for [facility] flow cytometry: - No immunophenotypic evidence of paroxysmal nocturnal hemoglobin[facility]/12/19/2024 17:23 By this signature, I attest [...] antibodies to the following cellular antigens: CD45, CN103e, CD15, CD59, FLAER. Total antigens analyzed: 5 [...] Surgical Pathology and Flow Cytometry Departments at [facility] as part of an ongoing quality control program and in compliance with federally mandated [...] Surgical Pathology and Flow Cytometry Departments of [facility]. It has not been cleared or approved by the [place]. S. Food and Drug Administration. IMAGES AND SCANNED DOCUMENTS, IF INCLUDED, ONLY VIEWABLE IN PDF VERSION OF REPORT April Villarreal RN DERMATOLOGY LAB PATHOLOGY ORDERAB LES Final Result * (ABNORMAL) aPTT (12/18/2024 4:22 PM CDT) aPTT 89(H) 28 - 38 sec Comment: Interpretive Data Heparin therapeutic range: 66.0 - 100.0 seconds. Range based on correlation with therapeutic heparin activity range of 0.3 - 0.7 Units/mL. Current interpretive data was last revised on 2023. Blood 12/18/2024 4:22 PM CDT 12/18/2024 4:51 PM CDT Narrative RITCHIE [facility] - 12/18/2024 4:59 PM CDT STAT PTT [...] MD LAB BLOOD ORDERABLES Final Res ult [facility] [place] [address] * CTA Abdominal Aorta And Bilateral Iliofemoral [...] by: Romana Jolly M.D. us April Villarreal RN DERMATOLOGY IMG CT PROCEDURES Fin al Result * [...] BLOOD ORDERABLES Final Result RITCHIE PLASCENCIA [facility] Department [place] [address] * (ABNORMAL) eGFR (12/17/2024 8:22 PM CDT) Pathologist [facility] eGFR 49(L) >=60 mL/min/1. 73 m2 Comment: [...] MD LAB BLOOD ORDERABLES Final Res ult [facility] [place] [address] * (ABNORMAL) aPTT (12/17/2024 8:22 PM CDT) aPTT 61(H) 28 - 38 sec Comment: No clot detected in sample - [id number] - 12/17/24, 9:23 PM Interpretive Data Heparin therapeutic range: 66.0 - 100.0 seconds. Range based on correlation with therapeutic heparin activity range of 0.3 - 0.7 Units/mL. Current interpretive data was last revised on 2023. Blood 12/17/2024 8:22 PM CDT 12/17/2024 9:03 PM CDT Narrative RITCHIE [facility] - 12/17/2024 9:24 PM CDT STAT PTT [...] drawn peripherally (not from CVC). us Bernardo Hlul RN DERMATOLOGY LAB BLOOD ORDERABLES Final Result Performing Organization Address [facility] Co de Phone Number [facility] [place] [address] * (ABNORMAL) CBC without differential (12/17/2024 8:22 PM CDT) Pathologist [facility] WBC 19.5(H) 3.8 - 9.9 K/cumm Hgb 10.4(L) 11.9 - 15.5 g/dL [facility] Hct 33.7(L) 35.6 - 45.5 % [facility] Plt 245 150 - 400 K/cumm [facility] MPV 11.1 9.1 - 12.3 fL [facility] RBC 3.92 3.90 - 5.20 M/cumm [facility] MCV 86.0 81.3 - 96.4 fL [facility] MCH 26.5(L) 27.1 - 33.3 pg [facility] MCHC 30.9(L) 32.3 - 35.7 g/dL [facility] RDW CV Not Measured 11.1 - 14.9 % [facility] RDW SD Not Measured 35.7 - 48.1 fL [facility] NRBC abs 0.00 0.00 - 0.01 K/cumm [facility] Blood 12/17/2024 8:22 PM CDT 12/17/2024 9:04 PM CDT Claude Garza MD LAB BLOOD ORDERABLES Final Res ult Performing Organization Address [facility] Co de Phone Number [facility] Department [place] [address] * Phosphorus (12/17/2024 8:22 PM CDT) Pathologist [facility] Phosphorus, pl 3.9 2.3 - 4.5 mg/dL Blood 12/17/2024 8:22 PM CDT 12/17/2024 9:04 PM CDT us Claude Garza MD LAB BLOOD ORDERABLES Final Res ult [facility] [place] [address] * Magnesium (12/17/2024 8:22 PM CDT) Pathologist [facility] Magnesium 1.5 1.4 - 2.5 mg/dL Blood 12/17/2024 8:22 PM CDT 12/17/2024 9:04 PM CDT Claude Garza MD LAB BLOOD ORDERABLES Final Res ult Performing Organization Address [facility] de Phone Number [facility] [place] [address] * Hemoglobin A1c (12/17/2024 8:22 PM CDT) [facility] Hgb A1C 4.5 4.0 - 5.6 % Estimated Average Glucose 82 mg/dL [facility] Comment: The ADA recommends reporting an estimated [...] MD LAB BLOOD ORDERABLES Final Res ult [facility] [place] [address] * (ABNORMAL) Basic metabolic panel (12/17/2024 8:22 PM CDT) Pathologist [facility] Sodium 148(H) 135 - 145 mmol/L Potassium, pl 3.7 3.3 - 4.9 mmol/L [facility] Chloride 111(H) 97 - 110 mmol/L [facility] CO2 26 22 - 32 mmol/L [facility] Anion gap 11 2 - 15 mmol/L [facility] BUN 18 6 - 25 mg/dL [facility] Creatinine 1.32(H) 0.60 - 1.10 mg/dL [facility] Glucose 94 70 - 199 mg/dL [facility] Comment: Interpretive Data Fasting glucose >/= 126 [...] 2022. Calcium 8.6 8.5 - 10.3 mg/dL [facility] Blood 12/17/2024 8:22 PM CDT 12/17/2024 9:04 PM CDT us Claude Garza MD LAB BLOOD ORDERABLES Final Res ult [facility] [place] [address] * (ABNORMAL) aPTT (12/17/2024 1:00 PM CDT) [facility] aPTT 46(H) 28 - 38 sec Comment: Interpretive Data Heparin therapeutic range: 66.0 - 100.0 seconds. Range based on correlation with therapeutic heparin activity range of 0.3 - 0.7 Units/mL. Current interpretive data was last revised on 2023. Blood 12/17/2024 1:00 PM CDT 12/17/2024 1:26 PM CDT Narrative [facility] - 12/17/2024 1:48 PM CDT STAT PTT [...] LAB BLOOD ORDERABLES Final Res ult [facility] [place] [address] * Arterial Duplex Lower Extremity Right Limited (12/17/2024 12:20 PM CDT) Anatomical Region Laterality Modality Vascular Right Ultrasound 12/17/2024 10:2 9 AM CDT Narrative 12/17/2024 7:12 PM CDT [facility] - Department of Vascular Surgery, Vascular Laboratory [address] [place] [address] [place] Lower Extremity Arterial Duplex Report Patient Name: JEFFERY HAMILTON ANN : 1970 Study Date: 12/17/2024 10:29:11 AM Gender: F Tech: TANVIR Location: [id number] Ref Provider: BERNARDO HULL Quality: Adequate Order Provider: BERNARDO HULL PROCEDURES: Arterial Report: Right Lower Extremity Arterial Duplex Exam. INDICATIONS: Presence of Vascular Implants and Grafts - MEASUREMENTS: Right Value Units Rt Distal External Iliac 82 cm/s Rt REGULATORY INTERN Dst PSV 142 cm/s Rt Common Femoral [...] 48 cm/s Right Value Units FINDINGS: Performing Executive Vice President And Chief Financial Officer: Shey Dorman RDMS, RVT. Right Distal External [...] and during surgery yesterday. 2. Patent right REGULATORY INTERN artery stent. 3. Patent right fem-pop bypass graft. HISTORY: Arterial occlusion Hypertension DVT (deep venous thrombosis) ([facility]) Critical limb ischemia of right lower extremity ([facility]) 12/16/2024: FEMORAL EMBOLECTOMY/THROMBECTOMY- suction thrombectomy with Penumbra [...] above. Electronically Signed By: Claude Garza MD [facility] [phone] 12/17/2024 7:04:32 PM CDT Procedure Note Claude Garza MD - 12/17/2024 [employer] - Department of Vascular Surgery,Vascular Laboratory [address] [place] [address] [place] Lower Extremity Arterial Duplex Report Patient Name: JEFFERY HAMILTON ANN : 1970 Study Date: 12/17/2024 10:29:11 AM Gender: F Tech: PETER/CARLOS Location: [id number] Ref Provider: BERNARDO HULL Quality: Adequate Order Provider: BERNARDO HULL PROCEDURES: Arterial Report: Right Lower Extremity Arterial Duplex Exam. INDICATIONS: Presence of Vascular Implants and Grafts - MEASUREMENTS: Right Value Units Rt Distal External Iliac 82 cm/s Rt REGULATORY INTERN Dst PSV 142 cm/s Rt Common Femoral [...] 48 cm/s Right Value Units FINDINGS: Performing Executive Vice President And Chief Financial Officer: Shey Dorman RDMS, RVT. Right Distal External [...] CTA and duringsurgery yesterday. 2. Patent right REGULATORY INTERN artery stent. 3. Patent right fem-pop bypass graft. HISTORY: Arterial occlusion Hypertension DVT (deep venous thrombosis) ([facility]) Critical limb ischemia of right lower extremity ([facility]) 12/16/2024: FEMORAL EMBOLECTOMY/THROMBECTOMY- suction thrombectomy withPenumbra and [...] above. Electronically Signed By: Claude Garza MD [facility] [phone] 12/17/2024 7:04:32 PM CDT us Bernardo Hull RN DERMATOLOGY IMG US PROCEDURES Final Res ult * (ABNORMAL) aPTT (12/17/2024 5:30 AM CDT) Pathologist [facility] aPTT 49(H) 28 - 38 sec Comment: [...] LAB BLOOD ORDERABLES Final Res ult RITCHIE [facility] [place] [address] * eGFR (12/16/2024 10:52 PM CDT) Pathologist [facility] eGFR 64 >=60 mL/min/1. 73 m2 Comment: [...] MD LAB BLOOD ORDERABLES Final Res ult [facility] [place] [address] * (ABNORMAL) CBC without differential (12/16/2024 10:52 PM CDT) WBC 18.2(H) 3.8 - 9.9 K/cumm Hgb 12.1 11.9 - 15.5 g/dL [facility] Hct 39.8 35.6 - 45.5 % [facility] Plt 239 150 - 400 K/cumm [facility] MPV 10.6 9.1 - 12.3 fL [facility] RBC 4.55 3.90 - 5.20 M/cumm [facility] MCV 87.5 81.3 - 96.4 fL [facility] MCH 26.6(L) 27.1 - 33.3 pg [facility] MCHC 30.4(L) 32.3 - 35.7 g/dL [facility] RDW CV Not Measured 11.1 - 14.9 % [facility] RDW SD Not Measured 35.7 - 48.1 fL [facility] NRBC abs 0.00 0.00 - 0.01 K/cumm [facility] Blood 12/16/2024 10:5 2 PM CDT 12/17/2024 12:31 AM CDT us Claude Garza MD LAB BLOOD ORDERABLES Final Res ult [facility] [place] [address] * (ABNORMAL) CBC without differential (12/16/2024 10:52 PM CDT) WBC 18.1(H) 3.8 - 9.9 K/cumm Hgb 12.2 11.9 - 15.5 g/dL [facility] Hct 40.2 35.6 - 45.5 % [facility] Plt 245 150 - 400 K/cumm [facility] MPV 10.8 9.1 - 12.3 fL [facility] RBC 4.60 3.90 - 5.20 M/cumm [facility] MCV 87.4 81.3 - 96.4 fL [facility] MCH 26.5(L) 27.1 - 33.3 pg [facility] MCHC 30.3(L) 32.3 - 35.7 g/dL [facility] RDW CV Not Measured 11.1 - 14.9 % [facility] RDW SD Not Measured 35.7 - 48.1 fL [facility] NRBC abs 0.00 0.00 - 0.01 K/cumm [facility] Blood 12/16/2024 10:5 2 PM CDT 12/17/2024 12:31 AM CDT Narrative [facility] - 12/17/2024 12:40 AM CDT While on heparin infusion us Claude Garza MD LAB BLOOD ORDERABLES Final Res ult [facility] [place] [address] * (ABNORMAL) Phosphorus (12/16/2024 10:52 PM CDT) [facility] Phosphorus, pl 5.3(H) 2.3 - 4.5 mg/dL Blood 12/16/2024 10:5 2 PM CDT 12/17/2024 12:30 AM CDT Claude Garza MD LAB BLOOD ORDERABLES Final Res ult Performing Organization Address [facility] Co de Phone Number [facility] Department [place] [address] * Magnesium (12/16/2024 10:52 PM CDT) [facility] Magnesium 1.6 1.4 - 2.5 mg/dL Blood 12/16/2024 10:5 2 PM CDT 12/17/2024 12:30 AM CDT Claude Garza MD LAB BLOOD ORDERABLES Final Res ult Performing Organization Address [facility] de Phone Number [facility] [place] [address] * Basic metabolic panel (12/16/2024 10:52 PM CDT) [facility] Sodium 144 135 - 145 mmol/L Potassium, pl 4.3 3.3 - 4.9 mmol/L [facility] Chloride 109 97 - 110 mmol/L [facility] CO2 24 22 - 32 mmol/L [facility] Anion gap 11 2 - 15 mmol/L [facility] BUN 16 6 - 25 mg/dL [facility] Creatinine 1.05 0.60 - 1.10 mg/dL [facility] Glucose 143 70 - 199 mg/dL [facility] Comment: Interpretive Data Fasting glucose >/= 126 [...] ORDERABLES Final Res ult Performing Organization Address [facility]/ZIP Co de Phone Number [facility] [place] [address] * eGFR (12/16/2024 7:42 PM CDT) eGFR [...] ORDERABLES Final Res ult Performing Organization Address City/[facility]/ZIP Co de Phone Number [facility] [place] [address] * (ABNORMAL) CBC without differential (12/16/2024 7:42 PM CDT) [facility] WBC 17.3(H) 3.8 - 9.9 K/cumm Hgb 12.0 11.9 - 15.5 g/dL [facility] Hct 39.0 35.6 - 45.5 % [facility] Plt 269 150 - 400 K/cumm [facility] MPV 10.6 9.1 - 12.3 fL [facility] RBC 4.53 3.90 - 5.20 M/cumm [facility] MCV 86.1 81.3 - 96.4 fL [facility] MCH 26.5(L) 27.1 - 33.3 pg [facility] MCHC 30.8(L) 32.3 - 35.7 g/dL [facility] RDW CV Not Measured 11.1 - 14.9 % [facility] RDW SD Not Measured 35.7 - 48.1 fL [facility] NRBC abs 0.00 0.00 - 0.01 K/cumm [facility] Blood 12/16/2024 7:42 PM CDT 12/16/2024 7:55 PM CDT Claude Garza MD LAB BLOOD ORDERABLES Final Res ult Performing Organization Address City/[facility]/ZIP Co de Phone Number [facility] [place] [address] * (ABNORMAL) Phosphorus (12/16/2024 7:42 PM CDT) [facility] Phosphorus, pl 5.0(H) 2.3 - 4.5 mg/dL Blood 12/16/2024 7:42 PM CDT 12/16/2024 7:55 PM CDT Claude Garza MD LAB BLOOD ORDERABLES Final Res [facility] [place] [address] * Magnesium (12/16/2024 7:42 PM CDT) [facility] Magnesium 1.6 1.4 - 2.5 mg/dL Blood 12/16/2024 7:42 PM CDT 12/16/2024 7:55 PM CDT Claude Garza MD LAB BLOOD ORDERABLES Final Res ult [facility] [place] [address] * (ABNORMAL) Basic metabolic panel (12/16/2024 7:42 PM CDT) [facility] Sodium 146(H) 135 - 145 mmol/L Potassium, pl 4.1 3.3 - 4.9 mmol/L [facility] Chloride 110 97 - 110 mmol/L [facility] CO2 24 22 - 32 mmol/L [facility] Anion gap 12 2 - 15 mmol/L [facility] BUN 16 6 - 25 mg/dL [facility] Creatinine 1.05 0.60 - 1.10 mg/dL [facility] Glucose 129 70 - 199 mg/dL [facility] Comment: Interpretive Data Fasting glucose >/= 126 [...] 2022. Calcium 8.7 8.5 - 10.3 mg/dL [facility] Blood 12/16/2024 7:42 PM CDT 12/16/2024 7:55 PM CDT us Claude Garza MD LAB BLOOD ORDERABLES Final Res ult Performing Organization Address [facility]/ZIP Co de Phone Number RITCHIE PLASCENCIA [facility] [place] [address] * FEMORAL EMBOLECTOMY/THROMBECTOMY, ANGIOGRAM (12/16/2024 7:29 PM CDT) Anatomical Region Laterality Modality X-Ray Angiograph y Narrative 12/17/2024 9:11 AM CDT Please see OpNote for result. us Claude Garza MD SURGICAL CASE ORDERS Final Res ult * THROMBECTOMY, ANGIOPLASTY BALLOON/STENT PLACEMENT, BYPASS GRAFT - FEMORAL LOWER EXT [id number] (12/16/2024 7:29 PM CDT) Anatomical Region Laterality Modality X-Ray Angiograph y Narrative 12/17/2024 9:11 AM CDT Please see OpNote for result. Claude Garza MD CV CARDIAC CATH PROCEDURES Fin al Result * FL Fluoroscopy < 1 Hour (12/16/2024 7:13 PM CDT) Narrative [facility] - 12/16/2024 7:14 PM CDT The images from this study are not interpreted by Radiology. Please refer to the physician's procedure / OR operative note. us Claude Garza MD IMG FLUOROSCOPY PROCEDURES Fin al Result Performing Organization Address [facility]/ZIP Co de Phone Number [email or web address] * POCT Activated clotting time, low range (12/16/2024 6:47 PM CDT) ACT 124 123 - 168 sec POC Performer [id number] [facility] POC Device Number [id number] [facility] Blood 12/16/2024 6:47 PM CDT 12/16/2024 6:47 PM CDT us Claude Garza MD LAB POCT ORDERABLES - DEVICE F inal Result Performing Organization Address [facility]/ZIP Co de Phone Number [facility] Department [place] [address] * (ABNORMAL) POC Blood Gas and Chemistries, Arterial - (12/16/2024 6:23 PM CDT) pH, Art POC 7.40 7.35 - 7.45 pCO2, Art POC 43 35 - [address] pO2, Art POC 139(H) 83 - 108 mmHg [facility] Na, POC 143 135 - 145 mmol/L [facility] K POC 3.8 3.3 - 4.9 mmol/L [facility] Comment: Interpretive Data Not all point of care methods assess for hemolysis. Confirm with instrument and retest K+ if not consistent with clinical signs and symptoms. Current Interpretive Data was last revised on 2024. Cl, POC 112(H) 97 - 110 mmol/L [facility] Ionized Ca, POC 4.75 4.50 - 5.10 mg/dL [facility] Glucose, POC 123 70 - 199 mg/dL [facility] Lactate, POC 1.1 0.7 - 2.0 mmol/L [facility] SO2 (pedrito) arterial 100(H) 90 - 95 % [facility] Base excess, POC 1.5 mmol/L [facility] HCO3, Art POC 26 20 - 30 mmol/L [facility] Hct, POC 37.0 36.3 - 45.3 % [facility] Total Hb, POC 12.2 11.9 - 15.5 g/dL [facility] Blood 12/16/2024 6:23 PM CDT 12/16/2024 6:23 PM CDT Claude Garza MD LAB POCT ORDERABLES - DEVICE F inal Result Performing Organization Address City/[facility]/ZIP Co de Phone Number [facility] Department [place] [address] * (ABNORMAL) POCT Activated clotting time, low range (12/16/2024 6:08 PM CDT) ACT 232(H) 123 - 168 sec POC Performer [id number] [facility] POC Device Number [id number] RITCHIE PLASCENCIA Blood 12/16/2024 6:08 PM CDT 12/16/2024 6:08 PM CDT Claude Garza MD LAB POCT ORDERABLES - DEVICE F inal Result [facility] [place] [address] * (ABNORMAL) POCT Activated clotting time, low range (12/16/2024 5:39 PM CDT) ACT 192(H) 123 - 168 sec POC Performer [id number] [facility] POC Device Number [id number] [facility] Blood 12/16/2024 5:39 PM CDT 12/16/2024 5:39 PM CDT Claude Garza MD LAB POCT ORDERABLES - DEVICE F inal Result Performing Organization Address [facility] Co de Phone Number [facility] [place] [address] * (ABNORMAL) POCT Activated clotting time, low range (12/16/2024 5:03 PM CDT) ACT 253(H) 123 - 168 sec POC Performer [id number] [facility] POC Device Number [id number] [facility] Blood 12/16/2024 5:03 PM CDT 12/16/2024 5:03 PM CDT Claude Garza MD LAB POCT ORDERABLES - DEVICE F inal Result Performing Organization Address City/[facility]/ZIP Co de Phone Number [facility] [place] [address] * (ABNORMAL) POCT Activated clotting time, low range (12/16/2024 4:28 PM CDT) ACT 229(H) 123 - 168 sec POC Performer [id number] [facility] POC Device Number [id number] RITCHIE PLASCENCIA Blood 12/16/2024 4:28 PM CDT 12/16/2024 4:28 PM CDT Claude Garza MD LAB POCT ORDERABLES - DEVICE F inal Result Performing Organization Address [facility] Co de Phone Number [facility] [place] [address] * (ABNORMAL) POCT Activated clotting time, low range (12/16/2024 3:56 PM CDT) ACT 253(H) 123 - 168 sec POC Performer [id number] [facility] POC Device Number [id number] [facility] Blood 12/16/2024 3:56 PM CDT 12/16/2024 3:56 PM CDT Claude Garza MD LAB POCT ORDERABLES - DEVICE F inal Result Performing Organization Address [facility] Co de Phone Number [facility] [place] [address] * (ABNORMAL) POCT Activated clotting time, low range (12/16/2024 3:26 PM CDT) ACT 245(H) 123 - 168 sec POC Performer [id number] [facility] POC Device Number [id number] [facility] Blood 12/16/2024 3:26 PM CDT 12/16/2024 3:26 PM CDT Claude Garza MD LAB POCT ORDERABLES - DEVICE F inal Result Performing Organization Address [facility]/ZIP Co de Phone Number [facility] [place] [address] * (ABNORMAL) POCT Activated clotting time, low range (12/16/2024 3:03 PM CDT) ACT 253(H) 123 - 168 sec POC Performer [id number] [facility] POC Device Number [id number] [facility] Blood 12/16/2024 3:03 PM CDT 12/16/2024 3:03 PM CDT Claude Garza MD LAB POCT ORDERABLES - DEVICE F inal Result Performing Organization Address [facility] de Phone Number [facility] [place] [address] * POCT Activated clotting time, low range (12/16/2024 1:59 PM CDT) ACT 144 123 - 168 sec POC Performer [id number] [facility] POC Device Number [id number] [facility] Blood 12/16/2024 1:59 PM CDT 12/16/2024 1:59 PM CDT Claude Garza MD LAB POCT ORDERABLES - DEVICE F inal Result Performing Organization Address [facility] de Phone Number [facility] [place] [address] * CO AN PROCEDURE PLACEHOLDER (12/16/2024 1:53 PM CDT) [...] complications us Naman Magaña MD ANESTHESIA ORDERABLES Keslea l Result * CO AN PROCEDURE PLACEHOLDER (12/16/2024 1:51 PM CDT) [...] MD ANESTHESIA ORDERABLES Kelsea l Result * CO AN ELECTIVE ENDOTRACHEAL AIRWAY, CO AN PROCEDURE PLACEHOLDER (12/16/2024 1:50 PM CDT) William Wood CRNA - 12/16/2024 1:50 PM CDT William Campos CRNA 12/16/2024 1:50 PM Airway Patient location: OR Urgency: elective Indications for airway management: anesthesia and airway protection Difficult airway: no Staff: Placed by: TOBACCO PRIZER: Jeanne Baker CRNA Emergent airway documentation: Risks [...] indirect Negative ABO Rh A Positive [facility] Blood 12/16/2024 9:44 AM CDT 12/16/2024 11:57 AM CDT Narrative [facility] - 12/16/2024 1:09 PM CDT Has the patient had Daratumumab or Isatuximab in the past 6 months?->Unknown us Claude Garza MD LAB BLOOD BANK TEST ORDERABLES Final Result [facility] [place] [address] * eGFR (12/15/2024 10:39 PM CDT) eGFR [...] ORDERABLES Final Res ult Performing Organization Address [facility] Co de Phone Number [facility] [place] [address] * (ABNORMAL) aPTT (12/15/2024 10:39 PM CDT) Pathologist [facility] aPTT 90(H) 28 - 38 sec Comment: Interpretive Data Heparin therapeutic range: 66.0 - 100.0 seconds. Range based on correlation with therapeutic heparin activity range of 0.3 - 0.7 Units/mL. Current interpretive data was last revised on 2023. Blood 12/15/2024 10:3 9 PM CDT 12/15/2024 10:57 PM CDT Narrative [facility] - 12/15/2024 11:27 PM CDT STAT PTT [...] ORDERABLES Final Res ult Performing Organization Address [facility] Co de Phone Number [facility] [place] [address] * (ABNORMAL) CBC without differential (12/15/2024 10:39 PM CDT) Pathologist [facility] WBC 12.2(H) 3.8 - 9.9 K/cumm Hgb 12.9 11.9 - 15.5 g/dL [facility] Hct 41.7 35.6 - 45.5 % [facility] Plt 267 150 - 400 K/cumm [facility] MPV 10.4 9.1 - 12.3 fL [facility] RBC 4.79 3.90 - 5.20 M/cumm [facility] MCV 87.1 81.3 - 96.4 fL [facility] MCH 26.9(L) 27.1 - 33.3 pg [facility] MCHC 30.9(L) 32.3 - 35.7 g/dL [facility] RDW CV Not Measured 11.1 - 14.9 % [facility] RDW SD Not Measured 35.7 - 48.1 fL [facility] NRBC abs 0.00 0.00 - 0.01 K/cumm [facility] Blood 12/15/2024 10:3 9 PM CDT 12/15/2024 10:58 PM CDT Claude Garza MD LAB BLOOD ORDERABLES Final Res ult Performing Organization Address City/[facility]/ZIP Co de Phone Number [facility] [place] [address] * Phosphorus (12/15/2024 10:39 PM CDT) [facility] Phosphorus, pl 3.4 2.3 - 4.5 mg/dL Blood 12/15/2024 10:3 9 PM CDT 12/15/2024 10:57 PM CDT Claude Garza MD LAB BLOOD ORDERABLES Final Res ult [facility] [place] [address] * Magnesium (12/15/2024 10:39 PM CDT) Magnesium 1.9 1.4 - 2.5 mg/dL Blood 12/15/2024 10:3 9 PM CDT 12/15/2024 10:57 PM CDT Claude Garza MD LAB BLOOD ORDERABLES Final Res ult [facility] [place] [address] * Basic metabolic panel (12/15/2024 10:39 PM CDT) Pathologist [facility] Sodium 143 135 - 145 mmol/L Potassium, pl 4.0 3.3 - 4.9 mmol/L [facility] Comment:Hemolyzed; Potassium value may be falsely elevated by as much as 0.3-0.5 mmol/L. Suggest redraw and reanalysis. Chloride 108 97 - 110 mmol/L [facility] CO2 24 22 - 32 mmol/L [facility] Anion gap 11 2 - 15 mmol/L [facility] BUN 21 6 - 25 mg/dL [facility] Creatinine 1.09 0.60 - 1.10 mg/dL [facility] Glucose 128 70 - 199 mg/dL [facility] Comment: Interpretive Data Fasting glucose >/= 126 [...] Calcium 9.3 8.5 - 10.3 mg/dL [facility] Blood 12/15/2024 10:3 9 PM CDT 12/15/2024 10:57 PM CDT Claude Garza MD LAB BLOOD ORDERABLES Final Res ult Performing Organization Address [facility] de Phone Number [facility] [place] [address] * (ABNORMAL) aPTT (12/15/2024 6:48 AM CDT) [facility] aPTT 84(H) 28 - 38 sec Comment: Interpretive Data Heparin therapeutic range: 66.0 - 100.0 seconds. Range based on correlation with therapeutic heparin activity range of 0.3 - 0.7 Units/mL. Current interpretive data was last revised on 2023. Blood 12/15/2024 6:48 AM CDT 12/15/2024 7:16 AM CDT Daniele DUGAN [facility] - 12/15/2024 7:38 AM CDT STAT PTT [...] Garza MD LAB BLOOD ORDERABLES Final Res [facility] Performing Organization Address [facility] Co de Phone Number [facility] [place] [address] * eGFR (12/15/2024 12:37 AM METROLOGIST) [facility] eGFR 67 >=60 mL/min/1. 73 m2 Comment: [...] reviewed 2021. Blood 12/15/2024 12:3 7 AM METROLOGIST 12/15/2024 1:25 AM METROLOGIST us Claude Garza MD LAB BLOOD ORDERABLES Final Res ult [facility] [place] [address] * (ABNORMAL) aPTT (12/15/2024 12:37 AM METROLOGIST) aPTT 69(H) 28 - 38 sec Comment: Interpretive Data Heparin therapeutic range: 66.0 - 100.0 seconds. Range based on correlation with therapeutic heparin activity range of 0.3 - 0.7 Units/mL. Current interpretive data was last revised on 2023. Blood 12/15/2024 12:3 7 AM METROLOGIST 12/15/2024 1:36 AM METROLOGIST Narrative RITCHIE PLASCENCIA - 12/15/2024 1:59 AM METROLOGIST STAT PTT timing: - Draw 6 hours [...] ORDERABLES Final Res ult Performing Organization Address City/[facility]/ZIP Co de Phone Number [facility] [place] [address] * (ABNORMAL) CBC without differential (12/15/2024 12:37 AM METROLOGIST) [facility] WBC 11.2(H) 3.8 - 9.9 K/cumm Hgb 12.7 11.9 - 15.5 g/dL [facility] Hct 41.2 35.6 - 45.5 % [facility] Plt 255 150 - 400 K/cumm [facility] MPV 10.7 9.1 - 12.3 fL [facility] RBC 4.77 3.90 - 5.20 M/cumm [facility] MCV 86.4 81.3 - 96.4 fL [facility] MCH 26.6(L) 27.1 - 33.3 pg [facility] MCHC 30.8(L) 32.3 - 35.7 g/dL [facility] RDW CV Not Measured 11.1 - 14.9 % [facility] RDW SD Not Measured 35.7 - 48.1 fL [facility] NRBC abs 0.00 0.00 - 0.01 K/cumm [facility] Blood 12/15/2024 12:3 7 AM METROLOGIST 12/15/2024 1:25 AM METROLOGIST Claude Garza MD LAB BLOOD ORDERABLES Final Res ult [facility] [place] [address] * Basic metabolic panel (12/15/2024 12:37 AM METROLOGIST) Pathologist [facility] Sodium 145 135 - 145 mmol/L Potassium, pl 3.8 3.3 - 4.9 mmol/L [facility] Chloride 109 97 - 110 mmol/L [facility] CO2 26 22 - 32 mmol/L [facility] Anion gap 10 2 - 15 mmol/L [facility] BUN 16 6 - 25 mg/dL [facility] Creatinine 1.01 0.60 - 1.10 mg/dL [facility] Glucose 92 70 - 199 mg/dL [facility] Comment: Interpretive Data Fasting glucose >/= 126 [...] 2022. Calcium 8.9 8.5 - 10.3 mg/dL [facility] Blood 12/15/2024 12:3 7 AM METROLOGIST 12/15/2024 1:25 AM METROLOGIST us Claude Garza MD LAB BLOOD ORDERABLES Final Res ult [facility] [place] [address] * (ABNORMAL) aPTT (12/14/2024 5:25 PM METROLOGIST) [facility] aPTT 58(H) 28 - 38 sec Comment: Interpretive Data Heparin therapeutic range: 66.0 - 100.0 seconds. Range based on correlation with therapeutic heparin activity range of 0.3 - 0.7 Units/mL. Current interpretive data was last revised on 2023. Blood 12/14/2024 5:25 PM METROLOGIST 12/14/2024 5:59 PM METROLOGIST Narrative [facility] - 12/14/2024 6:08 PM METROLOGIST STAT PTT timing: - Draw 6 hours [...] ORDERABLES Final Res ult Performing Organization Address [facility]/ZIP Co de Phone Number RITCHIE PLASCENCIA [facility] [place] [address] * (ABNORMAL) aPTT (12/14/2024 9:22 AM METROLOGIST) [facility] Signature aPTT 56(H) 28 - 38 sec Comment: Interpretive Data Heparin therapeutic range: 66.0 - 100.0 seconds. Range based on correlation with therapeutic heparin activity range of 0.3 - 0.7 Units/mL. Current interpretive data was last revised on 2023. Blood 12/14/2024 9:22 AM METROLOGIST 12/14/2024 9:48 AM METROLOGIST Narrative [facility] - 12/14/2024 10:13 AM METROLOGIST STAT PTT timing: - Draw 6 hours [...] ORDERABLES Final Res ult Performing Organization Address City/[facility]/ZIP Co de Phone Number RITCHIE [facility] [place] [address] * (ABNORMAL) aPTT (12/14/2024 2:10 AM METROLOGIST) aPTT 40(H) 28 - 38 sec Comment: Interpretive Data Heparin therapeutic range: 66.0 - 100.0 seconds. Range based on correlation with therapeutic heparin activity range of 0.3 - 0.7 Units/mL. Current interpretive data was last revised on 2023. Blood 12/14/2024 2:10 AM METROLOGIST 12/14/2024 2:47 AM METROLOGIST Narrative RITCHIE EVANS - 12/14/2024 2:55 AM METROLOGIST STAT PTT timing: - Draw 6 hours [...] Res ult RITCHIE PLASCENCIA [facility] [place] [address] * CTA Abdominal Aorta And Bilateral Iliofemoral Runoff (12/13/2024 8:00 PM METROLOGIST) Anatomical Region Laterality Modality Body Bilateral Computed Tomogra phy 12/13/2024 8:21 PM METROLOGIST Impressions 12/13/2024 8:40 PM METROLOGIST 1. Right lower extremity: There is nonopacification [...] Carlos Hardwick M.D. Narrative 12/13/2024 8:40 PM METROLOGIST EXAMINATION: CT ANGIOGRAPHY OF THE ABDOMEN, PELVIS, [...] IMG CT PROCEDURES Kelsea l Result * CO CRITICAL CARE ILL/INJURED PATIENT INIT 30-74 MIN (12/13/2024 7:12 PM METROLOGIST) Narrative Fatimah Glover MD - 12/13/2024 7:12 PM METROLOGIST Fatimah Glover MD 12/18/2024 8:25 AM Critical [...] Final Result * eGFR (12/13/2024 6:44 PM METROLOGIST) [facility] eGFR 64 >=60 mL/min/1. 73 m2 Comment: [...] last reviewed 2021. Blood 12/13/2024 6:44 PM METROLOGIST 12/13/2024 6:53 PM METROLOGIST us Fatimah Glover MD LAB BLOOD ORDERABLES Kelsea mack Result [facility] [place] [address] * (ABNORMAL) Differential, auto (12/13/2024 6:44 PM METROLOGIST) Neutrophil abs 8.1(H) 1.5 - 6.5 K/cumm Imm gran abs 0.0 0.0 - 0.1 K/cumm [facility] Lymphocyte abs 5.0(H) 0.8 - 3.3 K/cumm [facility] Monocyte abs 1.0(H) 0.2 - 0.8 K/cumm [facility] Eosinophil abs 0.2 0.0 - 0.5 K/cumm [facility] Basophil abs 0.1 0.0 - 0.1 K/cumm [facility] Neutrophil pct 56.0 % [facility] Comment: Interpretive Data Percent cell count reference ranges are not reported, since discordance with absolute values may lead to misinterpretation of CBC data. Current Interpretive Data was last revised on 2018. Imm gran pct 0.2 % [facility] Comment: Interpretive Data Percent cell count reference ranges are not reported, since discordance with absolute values may lead to misinterpretation of CBC data. Current Interpretive Data was last revised on 2018. Lymphocyte pct 34.4 % [facility] Comment: Interpretive Data Percent cell count reference ranges are not reported, since discordance with absolute values may lead to misinterpretation of CBC data. Current Interpretive Data was last revised on 2018. Monocyte pct 7.2 % [facility] Comment: Interpretive Data Percent cell count reference ranges are not reported, since discordance with absolute values may lead to misinterpretation of CBC data. Current Interpretive Data was last revised on 2018. Eosinophil pct 1.5 % [facility] Comment: Interpretive Data Percent cell count reference ranges are not reported, since discordance with absolute values may lead to misinterpretation of CBC data. Current Interpretive Data was last revised on 2018. Basophil pct 0.7 % [facility] Comment: Interpretive Data Percent cell count reference ranges are not reported, since discordance with absolute values may lead to misinterpretation of CBC data. Current Interpretive Data was last revised on 2018. Blood 12/13/2024 6:44 PM METROLOGIST 12/13/2024 6:53 PM METROLOGIST Fatimah Glover MD LAB BLOOD ORDERABLES Kelsea mack Result [facility] [place] [address] * (ABNORMAL) CBC with auto differential (12/13/2024 6:44 PM METROLOGIST) WBC 14.5(H) 3.8 - 9.9 K/cumm Hgb 14.0 11.9 - 15.5 g/dL [facility] Hct 45.5 35.6 - 45.5 % [facility] Plt 317 150 - 400 K/cumm [facility] MPV 9.8 9.1 - 12.3 fL [facility] RBC 5.33(H) 3.90 - 5.20 M/cumm [facility] MCV 85.4 81.3 - 96.4 fL [facility] MCH 26.3(L) 27.1 - 33.3 pg [facility] MCHC 30.8(L) 32.3 - 35.7 g/dL [facility] RDW CV Not Measured 11.1 - 14.9 % [facility] RDW SD Not Measured 35.7 - 48.1 fL [facility] NRBC abs 0.00 0.00 - 0.01 K/cumm [facility] Blood 12/13/2024 6:44 PM METROLOGIST 12/13/2024 6:53 PM METROLOGIST Fatimah Glover MD LAB BLOOD ORDERABLES Kelsea l Result Performing Organization Address [facility] Co de Phone Number [facility] [place] [address] * aPTT (12/13/2024 6:44 PM METROLOGIST) aPTT 32 28 - 38 sec Comment: Interpretive Data Heparin therapeutic range: 66.0 - 100.0 seconds. Range based on correlation with therapeutic heparin activity range of 0.3 - 0.7 Units/mL. Current interpretive data was last revised on 2023. Blood 12/13/2024 6:44 PM METROLOGIST 12/13/2024 6:55 PM METROLOGIST Fatimah Glover MD LAB BLOOD ORDERABLES Kelsea l Result Performing Organization Address [facility] de Phone Number [facility] [place] [address] * Protime-INR (12/13/2024 6:44 PM METROLOGIST) PT 11.1 9.7 - 13.0 sec INR 1.03 0.90 - 1.20 [facility] Comment: Interpretive data Oral anticoagulant therapeutic ranges: Venous thromboembolism prophylaxis or treatment: 2.0-3.0 CARDIOLOGY Standard range: 2.0-3.0 High-intensity range: 2.5-3.5 Refer to indication-specific guidelines for appropriate target ranges for prosthetic heart valve replacement. Current interpretive data was last revised on 2019. Blood 12/13/2024 6:44 PM METROLOGIST 12/13/2024 6:55 PM METROLOGIST Fatimah Glover MD LAB BLOOD ORDERABLES Kelsea l Result Performing Organization Address [facility] Co de Phone Number [facility] [place] [address] * Type and screen (12/13/2024 6:44 PM METROLOGIST) Pathologist [facility] ABO Rh A Positive Ella, indirect Negative [facility] Blood 12/13/2024 6:44 PM METROLOGIST 12/13/2024 7:12 PM METROLOGIST Narrative [facility] - 12/13/2024 8:17 PM METROLOGIST Has the patient had Daratumumab or Isatuximab in the past 6 months?->Unknown Fatimah Glover MD LAB BLOOD BANK TEST ORDER LOUIE Final Result Performing Organization Address [facility] de Phone Number [facility] [place] [address] * Comprehensive metabolic panel (12/13/2024 6:44 PM METROLOGIST) [facility] Sodium 145 135 - 145 mmol/L Potassium, pl 4.3 3.3 - 4.9 mmol/L [facility] Chloride 108 97 - 110 mmol/L [facility] CO2 26 22 - 32 mmol/L [facility] Anion gap 11 2 - 15 mmol/L [facility] BUN 16 6 - 25 mg/dL [facility] Creatinine 1.05 0.60 - 1.10 mg/dL [facility] Glucose 96 70 - 199 mg/dL [facility] Comment: Interpretive Data Fasting glucose >/= 126 [...] 2022. Calcium 9.7 8.5 - 10.3 mg/dL [facility] Bilirubin, total <0.2 0.1 - 1.2 mg/dL [facility] Protein, pl 7.7 6.5 - 8.5 g/dL [facility] Albumin 4.2 3.5 - 5.0 g/dL [facility] Alk phos 123 40 - 130 Units/L [facility] ALT 12 7 - 45 Units/L [facility] AST 18 10 - 45 Units/L [facility] Blood 12/13/2024 6:44 PM METROLOGIST 12/13/2024 6:53 PM METROLOGIST Fatimah Glover MD LAB BLOOD ORDERABLES Kelsea l Result Performing Organization Address City/[facility]/ZIP Co de Phone Number [facility] [place] [address] * POCT creatinine (12/13/2024 6:42 PM METROLOGIST) Creatinine POC 1.1 0.6 - 1.1 mg/dL Blood 12/13/2024 6:42 PM METROLOGIST 12/13/2024 6:42 PM METROLOGIST Fatimah Glover MD LAB POCT ORDERABLES - DEV ICE Final Result Performing Organization Address City/[facility]/ZIP Co de Phone Number [facility] [place] [address] * [place] Outside Reference (12/13/2024 10:30 AM METROLOGIST) Impressions RAD_PACS_[facility] - 12/13/2024 10:30 AM METROLOGIST These images are for Reference purposes only and have not been reviewed by [facility] Radiology. There will be no report generated by a [facility] Radiologist. Narrative RAD_PACS_[facility] - 12/13/2024 10:30 AM METROLOGIST EXAMINATION: Images For Reference Purposes Only us Madelyn Vicente MD PhD IMG US PROCEDURES Kelsea l Result Performing Organization Address City/[facility]/ZIP Co de Phone Number [facility] * MSK CT Outside Reference (12/13/2024 10:29 AM METROLOGIST) Impressions [facility] - 12/13/2024 10:29 AM METROLOGIST These images are for Reference purposes only and have not been reviewed by [facility] Radiology. There will be no report generated by a [facility] Radiologist. Narrative [facility] - 12/13/2024 10:29 AM METROLOGIST EXAMINATION: Images For Reference Purposes Only Madelyn Vicente MD PhD IMG CT PROCEDURES Kelsea l Result Performing Organization Address [facility] Co de Phone Number [facility] from Last 3 Months Additional Health Concerns Infection Onset Date Last Indicated MDR gram neg/ESBL 07/23/2024 08/01/2024 Insurance [facility] MEDICARE ADVANTAGE [facility] MED[facility] Address: [facility] [address] [place] [address] [facility] MEDICARE [facility] Address: [address] [address] [place] [address] [facility] MEDICARE ADVANTAGE [facility] MEDIC[facility] Address: [address] [address] [place] [address] Advance Directives For more information, please contact: [phone] * Full Code (Latest Code Status on [...] 11:02 AM 07/03/2024 11:02 AM Care Teams Communications Clerk Relationship Specialty Start Date End Date Mor Blancas MD [address] [place] [address] PCP - General Emergency Medicine 03/25/24 Flynn Ma MD [address] [facility] [address] [place], [place] [id number] Medical Oncologist/Directional Bore Operator Medical Oncology 09/28/18 Colleen Diaz MD [address] [place], [place] [address] Referring Physician Nephrology 03/24/22 Derek Wilson MD [address] [place] [address] Referring Physician Obstetrics and Gynecology 06/26/23 Mar Jay MD [address] [place] [address] Surgeon Vascular Surgery 08/24/23 Mitch Austin DO [address] [facility] [address] [place] [address] Surgeon Surgery 09/26/23 Madelyn Vicente MD PhD [address] [facility] [address] [place] [address] Registered Nurse Vascular Surgery 07/05/24 Eric [place] MD [address] [place] [address] Consulting Physician Plastic Surgery 07/29/24
[2025-03-04 23:00] VITALS: BP 140/67; PULSE 58; RESP 18; O2SAT 97
== END 2025-03-04 23:07 | disposition home or self-care (01) ==
LOC: CHSED 22:43
PROVIDERS: Emergency Provider Emergency Medicine; PCP Emergency Medicine
DX: S70.361A Insect bite (nonvenomous), right thigh, initial encounter (principal); T63.481A Toxic effect of venom of other arthropod, accidental (unintentional), initial encounter; R06.02 Shortness of breath; M79.89 Other specified soft tissue disorders; I10 Essential (primary) hypertension; Z86.718 Personal history of other venous thrombosis and embolism; Z87.891 Personal history of nicotine dependence
CPT/HCPCS: 96372; 99283; A9270; J0171; J7512

== ENCOUNTER 2025-03-26 14:39 | Outpatient (CLI) | payer MEDICARE, SELFPAY ==
--- NOTE | ~2025-03-26 | CT_ITS ---
EXAMINATION: CT sinus wo con DATE: 03/26/2025 14:53 INDICATION: Chronic sinusitis TECHNIQUE: Computed tomography (CT) of the paranasal sinuses was performed without intravenous contra st. The dose-length product was 338.02 mGy-cm. Automated exposure control and iterative reconstructio n technique were employed. COMPARISON: CT dated 01/06/2016 FINDINGS: There is no significant mucosal thickening of the sinuses. No air-fluid levels. No mucoperi osteal reaction. Leftward nasal septal deviation. Ostiomeatal units are patent. Small left mastoid ef fusion. There is intracranial atherosclerosis. IMPRESSION: 1. Small left mastoid effusion. 2: No significant paranasal sinus disease. 3: Leftward nasal septal deviation. Reviewed, dictated and finalized at location A.
--- OUTSIDE RECORDS SUMMARY | 2025-03-26 16:34 | XMS_ITS | Encounter Summary ---
Author Organization [facility] [place] [facility] Address [address] [place] [address] Phone Care Team Providers Care Precision Agriculture Technician Name Role Phone Flynn Ma MD Unavailable [phone] Ari Elmore DO Primary Care Provider Colleen Diaz MD Unavailable Derek Wilson MD Unavailable [phone] Mar Jay MD Unavailable [phone] Mitch Austin DO Unavailable [phone] Mor Blancas MD Primary Care Provide r Madelyn Vicente MD PhD Unavailable [phone] Eric [place] MD Unavailable [phone] Encounter Details Date Type Department Care Team [...] on file 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 Gender Identity Female 03/14/2022 6:19 PM CDT [...] documented as of this encounter Care Teams Precision Agriculture Technician Relationship Specialty Start Date End Date Ari Elmore DO [address] [place] [address] PCP - General Family Medicine 12/16/20 03/24/24 Mor Blancas MD [address] [place] [address] PCP - General Emergency Medicine 03/25/24 Flynn Ma MD [address] [facility] [address] [place] [address] Medical Oncologist/Commercial Driver Medical Oncology 09/28/18 Colleen Diaz MD [address] [place] [address] Referring Physician Nephrology 03/24/22 Derek Wilson MD [address] [place] [address] Referring Physician Obstetrics and Gynecology 06/26/23 Mar Jay MD [address] [place] [address] Surgeon Vascular Surgery 08/24/23 Mitch Austin DO [address] [address] Surgeon Surgery 09/26/23 Madelyn Vicente MD PhD [address] [facility] [address] [place] [address] Registered Nurse Vascular Surgery 07/05/24 Eric [place] MD [address] [place] [address] Consulting Physician Plastic Surgery 07/29/24 documented as of this encounter
--- OUTSIDE RECORDS SUMMARY | 2025-03-26 16:34 | XMS_ITS | Encounter Summary ---
Author Organization [facility] Address [address] [place] [address] Phone Care Team Providers Care General Duty Nurse Name Role Phone Flynn Ma MD Unavailable [phone] Ari Elmore DO Primary Care Provider Colleen Diaz MD Unavailable Derek Wilson MD Unavailable [phone] Mar Jay MD Unavailable [phone] Mitch Austin DO Unavailable [phone] Mor Blancas MD Primary Care Provide r Madelyn Vicente MD PhD Unavailable [phone] Eric [place] MD Unavailable [phone] Encounter Details Date Type Department Care Team [...] on file 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 Gender Identity Female 03/14/2022 6:19 PM CDT [...] documented as of this encounter Care Teams General Duty Nurse Relationship Specialty Start Date End Date Ari Elmore DO [address] [place] [address] PCP - General Family Medicine 12/16/20 03/24/24 Mor Blancas MD [address] [place] [address] PCP - General Emergency Medicine 03/25/24 Flynn Ma MD [address] [facility] [address] [place] [address] Medical Oncologist/Senior Business Objects Developer Medical Oncology 09/28/18 Colleen Diaz MD [address] [place] [address] Referring Physician Nephrology 03/24/22 Derek Wilson MD [address] [place] [address] Referring Physician Obstetrics and Gynecology 06/26/23 Mar Jya MD [address] [place] [address] Surgeon Vascular Surgery 08/24/23 Mitch Austin DO [address] [address] Surgeon Surgery 09/26/23 Madelyn Vicente MD PhD [address] [facility] [address] [place] [address] Registered Nurse Vascular Surgery 07/05/24 Eric [place] MD [address] [place] [address] Consulting Physician Plastic Surgery 07/29/24 documented as of this encounter
--- OUTSIDE RECORDS SUMMARY | 2025-03-26 16:35 | XMS_ITS | Data Portability ---
Author Organization [facility] [place] Address [address] [place] [address] Care Team Providers Care Leaf Sorter Name Role Phone MONIKA MOSS Primary Care Provider Assessment No assessment recorded. Plan of Treatment Reminders Order Date Submit Date Provider Last Modified By Organization Details Last Modified Time Details Appointments None recorded. Lab None recorded. Referral None recorded. Procedures None recorded. Surgeries total hysterecto my, laparoscop ic, with bilateral salpingo-o ophorectom y (SURG) 2022 04/17/ [address] Surgery [facility] [address], [place], [address], 15:52:32 Imaging None recorded. Medication Orders None [...] WITH ENDOMETRIAL ABLATION (SURG) completed Ofelia Marquez [facility] 07/06/2023 10:31:53 06/26/20 23 bone marrow sampling completed Naomi Perry [facility] 07/03/2023 12:43:24 12/22/19 23 HYSTEROSCOPY, WITH ENDOMETRIAL ABLATION (SURG) completed Ofelia Marquez [facility] 12/22/2022 10:38:59 12/05/19 23 Endometrial Biopsy completed Derek Wilson MD [address], [place], [address], [facility] 12/05/2022 12:02:42 11/14/19 23 Date of Last Pap Smear completed [facility] 07/03/2023 11:21:33 10/09/19 23 Transfusion bld/bld compnt completed [facility] 07/03/2023 12:48:56 07/09/20 22 bone marrow sampling completed [facility] 07/03/2023 12:43:19 10/09/19 21 kidney biopsy completed [facility] 07/03/2023 12:42:31 10/09/18 99 tonsilectomy/ad enoids completed [facility] 07/03/2023 12:42:14 Imaging Results None recorded. Procedure Notes None recorded. Medical Equipment None Reported. Allergies Allergen ID Allergen Name Allergen Category Reaction Reaction Severity Criticality Documentation Date Start Date Code Code System Note Provider Name and Address Organization Details Recorded Time tetracycl ine medicatio n other moderate Not available 11/14/2022 37835 RxNorm Yasmine toscano, [facility] 14:50:26 Medications Name Sig Start [...] Updated DateTime 01/19/2024 167.64 cm 35.6 kg/m2 49384.76 g 162 mm[Hg] 98 mm[Hg] Caterina Ennis [facility] 4 15:49:22 Date Recorded Body height Body mass index (BMI) Body weight Systolic blood pressure Diastolic blood pressure Provider Name and Address Organization Details Last Updated DateTime 02/01/2024 167.64 cm 34.9 kg/m2 35512.95 g 127 mm[Hg] 81 mm[Hg] Angelika Matos [facility] 4 12:50:20 Date Recorded Body height Body mass index (BMI) Body weight Systolic blood pressure Diastolic blood pressure Provider Name and Address Organization Details Last Updated DateTime 07/03/2023 167.64 cm 42 kg/m2 350992.0 2 g 133 mm[Hg] 80 mm[Hg] Naomi Perry [facility] 3 12:37:39 Date Recorded Body height Body mass index (BMI) Body weight Systolic blood pressure Diastolic blood pressure Provider Name and Address Organization Details Last Updated DateTime 07/13/2023 167.64 cm 40.7 kg/m2 370219.2 8 g 136 mm[Hg] 78 mm[Hg] Sheryl Fernanda [facility] 3 14:07:23 Social History Question Answer Notes LastModified [...] Have You Had Close Contact With A Laboratory-confirme d COVID-19 While That Case Was Ill? No [...] Or The Highest Degree You Have Received? [id number] Information not available 11/14/2022 Are There Any [...] Have Difficulty Walking Or Climbing Stairs? No [email or web address] Information not available 07/13/2023 Sex: Unknown Functional Status Question Answer Note LastModified by Organizat ion Details LastModified Time Do you use any illicit or recreational drugs? No Information not available 11/14/2022 What is your level of alcohol consumption? None Information not available 11/14/2022 Are you able to walk? YESWOREST Information not available 11/14/2022 Are you able to care for yourself? 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 No [email or web address] Information not available 07/13/2023 What is your exercise level? None Information not available 11/14/2022 Mental Status Question Answer Note LastModified by Organization D etails LastModified Time Do you feel stressed (tense, restless, nervous, or anxious, or unable to sleep at night)? [id number] Information not available 11/14/2022 Family History Relationship Description Onset Age of this Age Resolved Age Notes LastModified by Organization Details LastModified Time Maternal Uncle Diabetes mellitus [email or web address] Not available 07/03 12:37:51 Unspecified Relation Diabetes mellitus [email or web address] Not available 07/03 12:37:51 Paternal Aunt Diabetes mellitus [email or web address] Not available 07/03 12:37:51 Paternal Grandmother Malignant tumor of colon [email or web address] Not available 07/03 12:37:51 Medical History Condition [...] SNOMED-CT Code Diagnosis ICD10 Code Diagnosis Note [id number] JAZMYN Prado [place] [address] [address] 11/14/2022 14:26:11 11/14/2022 17:50:32 Abnormal uterine bleeding 7487369888 9100 N93.9 Today we reviewed a detailed [...] plan of care. Venereal d isease screening 146470155 Z11.3 Screening for malignant neoplasm of cervix 849096012 Z12.4 [id number] Derek Wilson MD [facility] [address] [address] 11/24/2022 16:21:13 11/24/2022 17:03:29 Abnormal uterine bleeding 0287129246 9100 N93.9 [id number] Derek Wilson MD [facility] [address] [address] 12/05/2022 11:00:58 12/05/2022 12:10:21 Menorrhagia 764054188 N92.0 Lesion of endometrium 92 64906712 9101 N85.9 informed patient of vulvar lesions [...] biopsy well. Was performed without complicati ons. [id number] Vibha Rocha [facility] [address],[facility] [place] [address] 12/16/2022 14:18:51 12/16/2022 15:17:41 Menorrhagia 661350839 N92.[address] Wilson today prior to patient leaving as this situation is out of my scope of practice in acuity. He has agreed to see her & continue to manage her care today.Deborah ent sent upstairs and appropriat e staff was alerted to her situation & change in provider she is seeing today. [id number] Derek Wilson MD [facility] [address],[facility] [place] [address] 12/16/2022 15:21:22 12/16/2022 17:46:01 Abnormal uterine bleeding 2154126032 9100 N93.9 Menorrhagia 999859025 N9 2.0 This patient is a 52-year-ol [...] procedure. We agreed to move forward Anemia 262590912 D64.9 [id number] Derek Wilson MD [facility] [address] [address] 12/16/2022 17:21:41 12/19/2022 15:25:58 Abnormal uterine bleeding 2597747404 9100 N93.9 [id number] Derek Wilson MD [facility] [address] [address] 12/26/2022 10:20:38 12/26/2022 15:13:28 [id number] Derek Wilson MD [facility] [address] [address] 12/29/2022 11:36:42 12/29/2022 12:27:49 Menorrhagia 525580289 N92.0 This patient is a 52-year-ol d female who presents for follow-up on menorrhagi a. We performed endometria l ablation. She has watery vaginal discharge. She is recovering normally. She is still on Eliquis. She will see her hematologi st in a few weeks. [id number] Derek Wilson MD [facility] [address],[place] [address] 04/28/2023 14:18:00 04/28/2023 15:14:24 Menorrhagia 678800796 N92.0 This patient is a 52-year-ol d [...] face-to-fa ce. More than 50% was counseling [id number] Derek Wilson MD [facility] [address],[place] [address] 06/15/2023 16:14:22 06/16/2023 12:28:34 Menorrhagia 292132745 N92.0 52-year-ol d female with severe menorrhagi [...] not have any bleeding in the more. [id number] Derek Wilson MD [facility] [address],[place] [address] 07/03/2023 12:24:04 07/03/2023 14:53:16 Menorrhagia 001509261 N92.0 this patient is a 52-year-ol d female with menorrhagi a. We have agreed to perform endometria l ablation. She understand s the risks, benefits, and alternativ es. She has completed the informed consent process is ready to proceed. [id number] Derek Wilson MD [facility] [address] [address] 07/06/2023 09:59:17 07/06/2023 10:00:03 [id number] Derek Wilson MD [facility] [address],[place] [address] 07/13/2023 13:45:09 07/13/2023 14:34:11 Abnormal uterine bleeding 8804146628 9100 N93.9 Menorrhagia 949921295 N9 2.0 this patient is a 52-year-ol [...] ic hysterecto my bilateral salpingo-o ophorectom y. [id number] Derek Wilson MD [facility] [address] [address] 01/19/2024 15:42:39 01/20/2024 10:38:12 Menorrhagia 629008700 N92.0 this patient is a 52-year-ol d female with severe menorrhagi a. We will perform total laparoscop ic hysterecto my bilateral salpingo-o ophorectom y. she understand s the risks, benefits, and alternativ es. She is completed the informed consent process and is ready to proceed. [id number] Derek Wilson MD [facility] [address] [address] 02/01/2024 12:42:03 02/01/2024 16:24:50 Postoperative care 154724636 Z48.89 female Patient presents for postop follow-up. [...] None Recorded Advance Directives Directive N: Payers Insurance Date Sequence Insurance Name Policy Number Policy Blanco Covered Member ID Blanco Member ID Guarantor Name 02/05/2024 1 [facility] (MEDICARE REPLACEMENT/A DVANTAGE - PPO) [id number] Nicole Hamilton [id number] Nicole Hamilton 01/31/2024 2 MEDICAID-DE: [facility] Nicole Hamilton [id number] Nicole Hamilton Notes Date Note Type Note Provider Name [...] infection Derek Wilson MD [address], [place], [address], [facility] 07/03/2023 14:48:46 07/13/2023 text/html this patient [...] hysterectomy in detail. We spent 40 minutes [id number] discussing the details of hysterectomy, her bleeding, treatment options. We made a decision to perform surgery. We will perform total laparoscopic hysterectomy bilateral salpingo-oophorect daisy. Derek Wilson MD [address], [place], [address], [facility] 07/13/2023 14:34:01 01/19/2024 text/html 53-year-old [...] infection. Derek Wilson MD [address], [place], [address], [facility] 01/19/2024 16:47:26 02/01/2024 text/html female Patient presents for postop follow-up. She is 1 week postop from a total laparoscopic hysterectomy bilateral salpingo oophorectomy. She has no complaints. Her incisions are clean dry and intact. She is recovering normally. She will follow-up as needed. Derek Wilson MD [address], [place], [address], [facility] 02/01/2024 16:05:40 OBGyn Episode Ob Episode Information Episode Created Date Number of Fetuses Patient Bloodtype Patient rh Status Prepregnancy Weight lbs Domestic Partner Domestic Partner Phone Father Name It Lead Status 11/14/19 23 1 CLOSED Fetus Data First Name Last Name Admitted to NICU Weight (g) Sex Living Outcome Pediatric Complications Fetus ID Race Codes Race Delivery Type 3231.84 3 F Prematur e 80257 Vaginal Delivery Vijay Calculation Initial Vijay Date [...] Domestic Partner Domestic Partner Phone Father Name It Lead Status 07/03/20 23 1 CLOSED Fetus Data First Name Last Name Admitted to NICU Weight (g) Sex Living Outcome Pediatric Complications Fetus ID Race Codes Race Delivery Type , Induced 11393 Vijay Calculation Initial Vijay Date Initial Exam [...] Post Complications Tubal Sterilization Discharge Date Comments 199 0 Discharge Information Feeding Method Contraceptive Method Maternal HG B and HCT Levels
--- OUTSIDE RECORDS SUMMARY | 2025-03-26 16:35 | XMS_ITS | Referral Summary ---
Author Organization [facility] Address [address] [place] [address] Care Team Providers Care Icu Manager Name Role Phone Flynn Ma MD Unavailable [phone] Colleen Diaz MD Unavailable Derek Wilson MD Unavailable [phone] Mar Jay MD Unavailable Mitch Austin DO Unavailable [phone] Mor Blancas MD Primary Care Provide r Madelyn Vicente MD PhD Unavailable [phone] Eric [place] MD Unavailable Encounters Date Type Department Care Team Description 03/25/2025 Orders Only [facility] Advanced Medicine ([facility]) - [facility] Minimally Invasive Surgery [address] [facility] Advanced Medicine 12th Floor, [place] [address] Sheryl To RMA 03/04/2025 Orders Only [facility] [address] [facility] Floor 6 [place] [address] Stephani Robertson Acute lower limb ischemia (Primary Dx) 01/30/2025 Telephone [facility] Pre Anesthesia Testing [address] [place] [address] [place]aren M. 01/20/2025 Orders Only [facility] [address] [facility] Floor 1 [place] [address] Madelyn Vicente MD PhD 01/17/2025 Telephone [facility] [address] [facility] Floor 1 [place] [address] Greg Kat CMA 01/17/2025 Orders Only [facility] [address] [facility] Floor 1 [place] [address] Madelyn Vicente MD PhD Encounter for surgical aftercare following surgery on the circulatory system (Primary Dx); Presence of other vascular implants and grafts 01/16/2025 Telephone [facility] [address] [facility] Floor 1 [place] [address] Greg Kat CMA 01/09/2025 Orders Only [facility] On[facility] [address] [facility] Floor 6 [place] [address] Mireya Briceno RN Iron deficiency anemia, unspecified iron deficiency anemia type (Primary Dx) 01/08/2025 11:20 AM CDT Lab [facility] ([facility]) [address] [place] [address] Anemia, unspecified type 01/08/2025 9:15 AM CDT Office Visit [facility] [address] [place] [address] Advanced Medicine 8th [place] [address] [place] [address] Madelyn Vicente MD PhD Atherosclerosis of [place] arteries of extremities with intermittent claudication, bilateral legs (Primary Dx); Critical limb ischemia of right lower extremity (HCC) 01/02/2025 3:15 PM CDT Ancillary Procedure [facility] at the [facility] Advanced Medicine [address] [place] [address] 8th [place] [address] Encounter for surgical aftercare following surgery on the circulatory system; Presence of other vascular implants and grafts 12/30/2024 Orders Only [facility] [address] [facility] Floor 1 [place] [address] Madelyn Vicente MD PhD Encounter for surgical aftercare following surgery on the circulatory system (Primary Dx); Presence of other vascular implants and grafts 12/27/2024 Documentation [facility] [address] [facility] Floor 6 [place] [address] [place] Appointment from Last 3 Months Allergies Active Allergy [...] mg total) by mouth daily 5 Active azelastine (ASTELIN) 137 mcg (0.1 %) nasal spray 02/04/20 2 5 Active cephalexin (KEFLEX) 500 mg capsule 5 Active eszopiclone (LUNESTA) 1 mg tablet 5 Active fluticasone propionate (FLONASE) 50 mcg/actuation nasal spray SPRAY 1 SPRAY IN EACH NOSTRIL TWICE DAILY 5 Active methylPREDNISolone (MEDROL DOSEPACK) 4 mg Dosepack 5 Active predniSONE (DELTASONE) 20 mg tablet 5 Active amoxicillin-clavula colin (AUGMENTIN) 875-125 mg per tablet 5 Active Active Problems Problem Noted Date [...] underwent emergent OR s/p thrombectomy of R INTERPRETIVE NATURALIST, bypass graft, below knee popliteal. R groin [...] 07/25- with ID follow up for discontinuation. arranged for home IV abx. 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 R groin [...] lateral thigh PRS: Prolene sutures. 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 Wound vac to thigh replaced Assessment & [...] 06/26/2023. Held Plavix/Eliquis due to bleeding. 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 S/p chemo, now in remission -F/U outpatient Assessment & Plan (08/07/2023 9:22 PM CDT): Diagnosed in 2016, in remission April 2023. Follows with [facility]. Resolved Problems Problem Noted Date Diagnosed Date Resolved Date Urinary tract infection 08/07/2023 06/0 12/2023 Overview (08/07/2023): Recently hospitalized at [facility] for pyelonephritis. Discharged on Keflex (08/01-08/10). - Continue cephalexin 500 mg BID. Assessment & Plan (08/07/2023 10:53 PM CDT): Recently hospitalized at [facility] for pyelonephritis. Discharged on Keflex (08/01-08/10). - [...] = 0.6 oz pur e alcohol) [facility] Utilities Answer Date Recorded In the past 12 months has [employer], [employer], oil, or water Site [employer] threatened to shut off services in your [...] 12/16/2024 How often do you attend chur or scientology services? Never 12/16/2024 Do you belong to any clubs o r organizations such as shinto groups, unions, fraternal or athletic groups, or [...] any time in the past 12 m [facility], were you homeless or living in a senior care (including now)? No 12/16/2024 Personal Safety Answer Date Recorded Have you ever been in or are you currently in a harmful physical or emotional relationship or is someone making you feel afraid or unsafe? 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 Gender Identity Female 03/14/2022 6:19 PM [...] on file Medical Devices Implanted Type Area Credit Risk Officer Device Identifier Shelf Expiration Date Model / Serial / Lot [employer] R[employer] Patch Vascuguard 0.88cm [id number] - [id number] Implanted:Qty : 1 on 07/01/2024 by Madelyn Vicente MD PhD at [facility] Other - see comments Right: Common Femoral Artery [employer] Riki [id number] 10/02/2025 [id number] / / [id number]- [id number] [employer] Riki Stent Peripheral [id number] m 6fr Self-Expandin g Blue Strl [id number] 30 - S00 - [id number] Implanted:Qty : 1 on 12/16/2024 by Claude Garza MD at [facility] Stent Right: Femoral [employer] Riki [id number] 05/20/2029 [id number] / 00 / [id number] [employer] Riki Stent Peripheral [id number] m 6fr Self-Expandin g Blue Strl [id number] 30 - S00 - [id number] Implanted:Qty : 1 on 12/16/2024 by Claude Garza MD at [facility] Stent Right: Femoral [employer] Riki [id number] 05/20/2029 [id number] / 00 / [id number] [employer] System Closure Repair Femoral Artery Suture Mediated Perclose Prostyle 64907-63 - [id number] Implanted:Qty : 1 on 12/16/2024 by Claude Garza MD at [facility] Vascular Closure Device Left: Groin [employer] [id number] 08/08/2026 [id number] / / [id number] [employer] System Closure Repair Femoral Artery Suture Mediated Perclose Prostyle 99908-45 - [id number] Implanted:Qty : 1 on 12/16/2024 by Claude Garza MD at [facility] Vascular Closure Device Left: Groin [employer] [id number] 02/05/2025 41928-51 / / [id number] [employer] Restrata Mini Matrix 100mg Micronized Powder Rmini-100 - [id number] Implanted:Qty : 1 on 07/16/2024 by Madelyn Vicente MD PhD at [facility] Right: Groin [employer] 07/11/2025 RMINI-10 0 / / [id number] [employer] Riki Patch Vascuguard 0.88cm [id number] - [id number] - [id number] Implanted:Qty : 1 on 07/22/2024 by Madelyn Vicente MD PhD at [facility] Right: Knee [employer] Riki [id number] 02/19/2026 [id number] / [id number]- [id number] / [id number]- [id number] [employer] System Closure Repair Femoral Artery Suture Mediated Perclose Prostyle 58522-08 - [id number] Implanted:Qty : 1 on 12/19/2024 by Claude Garza MD at [facility] Right: Groin [employer] [id number] 03/08/2026 43253-05 / / [id number] Procedures Procedure Name Priority Date/Time Associated Diagnosis [...] system from Last 3 Months Results * (ABNORMAL) Differential, auto (01/08/2025 10:11 AM CDT) Neutrophil abs 9.52(H) 1.50 - 6.50 K/cumm Imm gran abs 0.04 0.00 - 0.10 K/cumm [facility] Lymphocyte abs 4.14(H) 0.80 - 3.30 K/cumm [facility] Monocyte abs 0.89(H) 0.20 - 0.80 K/cumm [facility] Eosinophil abs 0.19 0.00 - 0.50 K/cumm [facility] Basophil abs 0.10 0.00 - 0.10 K/cumm [facility] Neutrophil pct 63.9 % [facility] Comment: Interpretive Data Percent cell count reference ranges are not reported, since discordance with absolute values may lead to misinterpretation of CBC data. Current Interpretive Data was last revised on 2018. Imm gran pct 0.3 % [facility] Comment: Interpretive Data Percent cell count reference ranges are not reported, since discordance with absolute values may lead to misinterpretation of CBC data. Current Interpretive Data was last revised on 2018. Lymphocyte pct 27.8 % [facility] Comment: Interpretive Data Percent cell count reference ranges are not reported, since discordance with absolute values may lead to misinterpretation of CBC data. Current Interpretive Data was last revised on 2018. Monocyte pct 6.0 % [facility] Comment: Interpretive Data Percent cell count reference ranges are not reported, since discordance with absolute values may lead to misinterpretation of CBC data. Current Interpretive Data was last revised on 2018. Eosinophil pct 1.3 % [facility] Comment: Interpretive Data Percent cell count reference ranges are not reported, since discordance with absolute values may lead to misinterpretation of CBC data. Current Interpretive Data was last revised on 2018. Basophil pct 0.7 % [facility] Comment: Interpretive Data Percent cell count reference ranges are not reported, since discordance with absolute values may lead to misinterpretation of CBC data. Current Interpretive Data was last revised on 2018. Blood 01/08/2025 10:1 1 AM CDT 01/08/2025 10:36 AM CDT Kirsten Roa NP LAB BLOOD ORDE PARAG Final Result [facility] Department [place] [address] * (ABNORMAL) CBC with auto differential (01/08/2025 10:11 AM CDT) WBC 14.88(H) 3.80 - 9.90 K/cumm Hgb 10.7(L) 11.9 - 15.5 g/dL [facility] Hct 34.4(L) 35.6 - 45.5 % [facility] Plt 338 150 - 400 K/cumm [facility] MPV 9.9 9.1 - 12.3 fL [facility] RBC 3.95 3.90 - 5.20 M/cumm [facility] MCV 87.1 81.3 - 96.4 fL [facility] MCH 27.1 27.1 - 33.3 pg [facility] MCHC 31.1(L) 32.3 - 35.7 g/dL [facility] RDW CV 25.1(H) 11.1 - 14.9 % [facility] RDW SD 77.6(H) 35.7 - 48.1 fL [facility] NRBC abs 0.00 0.00 - 0.01 K/cumm [facility] Blood 01/08/2025 10:1 1 AM CDT 01/08/2025 10:36 AM CDT Kirsten Sanchezrelltrudiallan HOUSE NURSE LAB BLOOD ORDE PARAG Final Result [facility] Department [place] [address] * US Arterial Duplex Lower Extremity Right Limited (01/02/2025 4:04 PM CDT) Anatomical Region Laterality Modality Vascular Right Ultrasound 01/02/2025 3:02 PM CDT Narrative 01/03/2025 9:05 PM CDT [facility] - Department of Vascular Surgery, Vascular Laboratory [address] [place] [address] Lower Extremity Arterial Duplex - Bypass Graft Report Patient Name: JEFFERY HAMILTON : 1970 Study Date: 01/02/2025 3:02:10 PM Gender: F Tech: Location: [facility] Provider: MADELYN VICENTE Quality: Adequate Order [...] 55 cm/s Right Value Units FINDINGS: Performing Steel Division Supervisor: Alta Palacios RVT, RDMS. Right Leg: The [...] See Ankle/Brachial Index report. 2. Patent right INTERPRETIVE NATURALIST stent. 3. Patent right lower extremity bypass [...] STUDIES: Previous study on 12-17-2024. Patent right INTERPRETIVE NATURALIST stent. Patent right BPG. DISCLAIMER: The study [...] above. Electronically Signed By: Claude Garza MD [facility] [phone] 01/03/2025 8:31:22 PM CDT Procedure Note Claude Garza MD - 01/03/2025 [facility] - Department of Vascular Surgery,Vascular Laboratory [address] [place] [address] Lower Extremity Arterial Duplex - Bypass Graft Report Patient Name: JEFFERY HAMILTON : 1970 Study Date: 01/02/2025 3:02:10 PM Gender: F Tech: Location: [facility] Ref Provider: MADELYN VICENTE Quality: [...] 55 cm/s Right Value Units FINDINGS: Performing Steel Division Supervisor: Alta Palacios RVT, YOLANDA. Right Leg: The inflow waveform is monophasic. [...] See Ankle/Brachial Index report. 2. Patent right INTERPRETIVE NATURALIST stent. 3. Patent right lower extremity bypass graft with a >75% stenosis at thedistal graft level. HISTORY: 12-19-2024 right leg angiogram - above knee stenosis 12-16-2024 femoral embolectomy/thrombectomy, BPG thrombectomy, right legangioplasty 10-16-2024 right leg angiogram, right leg angioplasty 07-22-2024 right BPG thrombectomy 07-01-2024 right femoral-popliteal BPG Lower limb ischemia, CKD, DVT, HTN, PAD, PVD. PREVIOUS STUDIES: Previous study on 12-17-2024. Patent right INTERPRETIVE NATURALIST stent. Patent right BPG. DISCLAIMER: The study [...] above. Electronically Signed By: Claude Garza MD [facility] [phone] 01/03/2025 8:31:22 PM CDT us Madelyn Vicente MD PhD IMG US PROCEDURES Kelsea l Result * US Arterial Doppler Lower Extremity Bilateral (01/02/2025 4:04 PM CDT) Anatomical Region Laterality Modality Vascular Bilateral Ultrasound 01/02/2025 3:29 PM CDT Narrative 01/03/2025 9:06 PM CDT [facility] - Department of Vascular Surgery, Vascular Laboratory [address] [place] [address] Lower Extremity Arterial Doppler Report Patient Name: JEFFERY HAMILTON : 1970 Study Date: 01/02/2025 3:29:00 PM Gender: F Tech: Alta Palacios RVT, RDMS Location: [facility] Provider: MADELYN VICENTE Quality: Adequate Order Provider: MADELYN VICENTE PROCEDURES: Arterial Report: Bilateral lower extremity arterial Doppler exam at rest. INDICATIONS: Z48.812 Encounter for surgical aftercare following surgery on the circulatory system. MEASUREMENTS: Right Value Units Left Value Units Rt Brachial Pressure 156 mmHg Lt Brachial Pressure 152 mmHg Rt FAMILY EDUCATOR Pressure 138 mmHg Lt FAMILY EDUCATOR Pressure 120 mmHg Rt DPA Pressure 126 mmHg Lt DPA Pressure 114 mmHg Rt 1st Digit Pressure 90 mmHg Lt 1st Digit Pressure 122 mmHg Rt PT KAROLYN Resting 0.88 Lt PT KAROLYN Resting 0.77 Rt AT KAROLYN Resting 0.81 Lt AT KAROLYN Resting 0.73 Rt Digit/Arm Index 0.58 Lt Digit/Arm Index 0.78 Right Value Units Left Value Units FINDINGS: Performing Steel Division Supervisor: Alta Palacios RVT, RDMS. Right Common Femoral [...] above. Electronically Signed By: Claude Garza MD [facility] [phone] 01/03/2025 8:56:56 PM CDT Procedure Note Claude Garza MD - 01/03/2025 [facility] - Department of Vascular Surgery,Vascular Laboratory [address] [place] [address] Lower Extremity Arterial Doppler Report Patient Name: JEFFERY HAMILTON : 1970 Study Date: 01/02/2025 3:29:00 PM Gender: F Tech: Alta Palacios RVT, RDMS Location: [facility] Provider: MADELYN VICENTE Quality: Adequate Order Provider: MADELYN VICENTE PROCEDURES: Arterial Report: Bilateral lower extremity arterial Doppler exam at rest. INDICATIONS: Z48.812 Encounter for surgical aftercare following surgery on thecirculatory system. MEASUREMENTS: Right Value Units Left Value Units Rt Brachial Pressure 156 mmHg Lt Brachial Pressure 152 mmHg Rt FAMILY EDUCATOR Pressure 138 mmHg Lt FAMILY EDUCATOR Pressure 120 mmHg Rt DPA Pressure 126 mmHg Lt DPA Pressure 114 mmHg Rt 1st Digit Pressure 90 mmHg Lt 1st Digit Pressure 122 mmHg Rt PT KAORLYN Resting 0.88 Lt PT KAROLYN Resting 0.77 Rt AT KAROLYN Resting 0.81 Lt AT KAROLYN Resting 0.73 Rt Digit/Arm Index 0.58 Lt Digit/Arm Index 0.78 Right Value Units Left Value Units FINDINGS: Performing Steel Division Supervisor: Alta Suzanne, RVT, RDMS. Right Common Femoral Artery Analysis: [...] above. Electronically Signed By: Claude Garza MD [facility] [phone] 01/03/2025 8:56:56 PM CDT [facility] Cindy Vicente MD PhD IMG US PROCEDURES Kelsea l Result from Last 3 Months Additional Health Concerns Infection Onset Date Last Indicated MDR gram neg/ESBL 07/23/2024 08/01/2024 Insurance [facility] MEDICARE ADVANTAGE [facility] MEDICARE [facility] MEDICARE ADVANTAGE Advance Directives For more information, please contact: [phone] * Full Code (Latest Code Status on [...] 11:02 AM 07/03/2024 11:02 AM Care Teams Icu Manager Relationship Specialty Start Date End Date Mor Blancas MD [address] [place] [address] PCP - General Emergency Medicine 03/25/24 Flynn Ma MD [address] [facility] [address] [place], [place] [id number] Medical Oncologist/Hand Clerical Verifier Medical Oncology 09/28/18 Colleen Diaz MD [address] [place] [address] Referring Physician Nephrology 03/24/22 Derek Wilson MD [address] [place] [address] Referring Physician Obstetrics and Gynecology 06/26/23 Mar Jay MD [address] [place] [address] Surgeon Vascular Surgery 08/24/23 Mitch Austin DO [address] [place] [address] Surgeon Surgery 09/26/23 Madelyn Vicente MD PhD [address] [place] [address] Registered Nurse Vascular Surgery 07/05/24 Eric Washington MD [address] [place] [address] Consulting Physician Plastic Surgery 07/29/24
--- OUTSIDE RECORDS SUMMARY | 2025-03-26 16:35 | XMS_ITS | Encounter Summary ---
Author Organization [facility] Address [address] [place] [address] Phone Care Team Providers Care Bean Snapper Name Role Phone Flynn Ma MD Unavailable [phone] Colleen Diaz MD Unavailable Deerk Wilson MD Unavailable [phone] Mar Jay MD Unavailable [phone] Mitch Austin DO Unavailable [phone] Mor Blancas MD Primary Care Provide r Madelyn Vicente MD PhD Unavailable [phone] Eric Washington MD Unavailable [phone] Encounter Details Date Type Department Care Team (Late st Contact Info) Description 03/25/2025 Orders Only [facility] ([facility]) - [facility] Minimally Invasive Surgery [address] [facility] Advanced Medicine 12th Floor, [place] [address] Sheryl To RMA Social History Tobacco Use Types Packs/Day Years Used Date Smoking Tobacco: Former Cigarettes 1 37.5 1 987 - 04/08/2024 Passive Smoke Exposure: Past Smokeless Tobacco: Never Comments:cutting down 4-6 a day Alcohol Use Standard Drinks/Week Comments No 0 (1 standard drink = 0.6 oz pur e alcohol) [facility] Utilities Answer Date Recorded In the past 12 months has th e electric, gas, oil, or water company [...] often do you attend chur ch or bahai services? Never 12/16/2024 Do you belong to any clubs o r organizations such as taoist groups, unions, fraternal or athletic groups, or [...] any time in the past 12 m [facility], were you homeless or living in a retirement (including now)? No 12/16/2024 Personal Safety Answer Date Recorded Have you ever been in or are you currently in a harmful physical or emotional relationship or is someone making you feel afraid or unsafe? 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 amoxicillin-clavu lanate (AUGMENTIN) 875-125 mg per tablet 03/12/2025 predniSONE (DELTASONE) 20 mg tablet 03/05/2025 methylPREDNISolon e (MEDROL DOSEPACK) 4 mg Dosepack 02/03/2025 fluticasone propionate (FLONASE) 50 mcg/actuation nasal spray SPRAY 1 SPRAY IN EACH NOSTRIL TWICE DAILY 01/21/2025 eszopiclone (LUNESTA) 1 mg tablet 02/03/2025 cephalexin (KEFLEX) 500 mg capsule 03/05/2025 azelastine (ASTELIN) 137 mcg (0.1 %) nasal spray 02/03/2025 added in this encounter Additional Health Concerns Infection Onset Date Last Indicated Resolved Time MDR gram neg/ESBL 07/23/2024 08/01/2024 documented as of this encounter Care Teams Bean Snapper Relationship Specialty Start Date End Date Mor Blancas MD [address] [place] [address] PCP - General Emergency Medicine 03/25/24 Flynn Ma MD [address] [facility] [address] [place] [address] Medical Oncologist/Aviation [employer] Intelligence Medical Oncology 09/28/18 Colleen Diaz MD [address] [place] [address] Referring Physician Nephrology 03/24/22 Derek Wilson MD [address] [place] [address] Referring Physician Obstetrics and Gynecology 06/26/23 Mar Jay MD [address] [place] [address] Surgeon Vascular Surgery 08/24/23 Mitch Austin DO [address] [facility] [address] [place] [address] Surgeon Surgery 09/26/23 Madelyn Vicente MD PhD [address] [facility] [address] [place] [address] Registered Nurse Vascular Surgery 07/05/24 Eric Washington MD [address] [place] [address] Consulting Physician Plastic Surgery 07/29/24 documented as of this encounter
--- OUTSIDE RECORDS SUMMARY | 2025-03-26 16:35 | XMS_ITS | Encounter Summary ---
Author Organization [facility] Address [address] [place] [address] Phone Care Team Providers Care Mandolin Repair Person Name Role Phone Flynn Ma MD Unavailable Ari Elmore DO Primary Care Provider Colleen Diaz MD Unavailable Derek Wilson MD Unavailable [phone] Mar Jay MD Unavailable [phone] Mitch Austin DO Unavailable [phone] Mor Blancas MD Primary Care Provide r Madelyn Vicente MD PhD Unavailable [phone] Eric Washington MD Unavailable [phone] Encounter Details Date Type Department Care Team [...] on file 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 Gender Identity Female 03/14/2022 6:19 PM CDT [...] documented as of this encounter Care Teams Mandolin Repair Person Relationship Specialty Start Date End Date Ari Elmore DO [address] [place] [address] PCP - General Family Medicine 12/16/20 03/24/24 Mor Blancas MD [address] [place] [address] PCP - General Emergency Medicine 03/25/24 Flynn Ma MD [address] [facility] [address] [place] [address] Medical Oncologist/Gyn Physician Medical Oncology 09/28/18 Colleen Diaz MD [address] [place] [address] Referring Physician Nephrology 03/24/22 Derek Wilson MD [address] [place] [address] Referring Physician Obstetrics and Gynecology 06/26/23 Mar Jay MD [address] [place] [address] Surgeon Vascular Surgery 08/24/23 Mitch Austin DO [address] [facility] [address] [place] [address] Surgeon Surgery 09/26/23 Madelyn Vicente MD PhD [address] [facility] [address] [place] [address] Registered Nurse Vascular Surgery 07/05/24 Eric Washington MD [address] [place] [address] Consulting Physician Plastic Surgery 07/29/24 documented as of this encounter
--- OUTSIDE RECORDS SUMMARY | 2025-03-26 16:35 | XMS_ITS | Clinical Summary ---
Author Organization [facility] Address [address] [place] [address] Care Team Providers Care Export Freight Clerk Name Role Phone Flynn Ma MD Unavailable [phone] Colleen Diaz MD Unavailable Derek Wilson MD Unavailable [phone] Mar Jay MD Unavailable [phone] Mitch Austin DO Unavailable [phone] Mor Blancas MD Primary Care Provide r Madelyn Vicente MD PhD Unavailable [phone] Eric Washington MD Unavailable [phone] Allergies Active Allergy Reactions Criticality Noted Date [...] underwent emergent OR s/p thrombectomy of R EXCHANGE ARCHITECT, bypass graft, below knee popliteal. R groin [...] 07/02/2024 Assessment & Plan (10/16/2024 2:41 PM CHILDCARE DIRECTOR): Has chronic abdominal pain due to likely [...] ordered Assessment & Plan (10/16/2024 2:42 PM CHILDCARE DIRECTOR): Hx RLE arterial occlusion/DVT 07/2023; h/o splenic [...] 07/01/2024 Assessment & Plan (10/16/2024 2:40 PM CHILDCARE DIRECTOR): Patient with previous right lower extremity bypass [...] 07/22: emergent OR s/p thrombectomy of R EXCHANGE ARCHITECT, bypass graft, below knee popliteal. R groin [...] 06/26/2023. Held Plavix/Eliquis due to bleeding. - Photographic Engineer consult on 08/08 - Hold home medication [...] 2016, in remission April 2023. Follows with [facility]. Resolved Problems Problem Noted Date Diagnosed Date Resolved Date Urinary tract infection 08/07/2023 06/0 12/2023 Overview (08/07/2023): Recently hospitalized at [facility] for pyelonephritis. Discharged on Keflex (08/01-08/10). - Continue cephalexin 500 mg BID. Assessment & Plan (08/07/2023 10:53 PM CDT): Recently hospitalized at [facility] for pyelonephritis. Discharged on Keflex (08/01-08/10). - Continue cephalexin 500 mg BID. Flu vaccine need 09/07/2022 08/07/2023 Dehydration 06/27/2022 08/07/2023 Immunocompromised 05/18/2022 08/07/2023 Encounters Date Type Department Care Team Description 03/25/2025 Orders Only [facility] Advanced Medicine ([facility]) - [facility] Minimally Invasive Surgery [address] [facility] 12th Floor, [place] [address] Sheryl To RMA 03/04/2025 Orders Only [facility] Hematology [address] [facility] Floor 6 [place] [address] Stephani Robertson Acute lower limb ischemia (Primary Dx) 01/30/2025 Telephone [facility] Pre Anesthesia Testing [address] [place] [id number] Karen Delarosa 01/20/2025 Orders Only [facility] Surgery [address] [facility] Floor 1 [place] [address] Madelyn Vicente MD PhD 01/17/2025 Telephone [facility] Surgery [address] [facility] Floor 1 [place] [address] Greg Kat CMA 01/17/2025 Orders Only [facility] Surgery [address] [facility] Floor 1 [place] [address] Madelyn Vicente MD PhD Encounter for surgical aftercare following surgery on the circulatory system (Primary Dx); Presence of other vascular implants and grafts 01/16/2025 Telephone [facility] Surgery [address] [place] [address] Floor 1 [place] [address] Greg Kat CMA 01/09/2025 Orders Only [facility] Oncology [address] [facility] Floor 6 [place] [address] Mireya Briceno RN Iron deficiency anemia, unspecified iron deficiency anemia type (Primary Dx) 01/08/2025 11:[address] [facility] Advanced [facility] ([facility] [address] [place] [address] Anemia, unspecified type 01/08/2025 9:15 AM CDT Office Visit [facility] Surgery [facility] [facility] 8th [place] [address] Madelyn Vicente MD PhD Atherosclerosis of [place] arteries of extremities with intermittent claudication, bilateral legs (Primary Dx); Critical limb ischemia of right lower extremity (HCC) 01/02/2025 3:15 PM CDT Ancillary Procedure [facility] Vascular Lab at the [facility] [address] [facility] 8th [place] [address] Encounter for surgical aftercare following surgery on the circulatory system; Presence of other vascular implants and grafts 12/30/2024 Orders Only [facility] Surgery [address] [facility] Floor 1 [place] [address] Madelyn Vicente MD PhD Encounter for surgical aftercare following surgery on the circulatory system (Primary Dx); Presence of other vascular implants and grafts 12/27/2024 Documentation [facility] Oncology [address] [facility] Floor 6 [place] [address] [place], [facility] Appointment from Last 3 Months Immunizations Immunization Administration [...] RLE angiogram; Surgeon: Claude Garza MD; Location: [facility] POD 3; Service: Vascular; Laterality: Right; RLE angiogram, bypass graft thrombectomy Medical devices from this surgery are in the Medical Devices section. VASCULAR SURGERY PROCEDURE 12/16/2024 Lower Extremit y/Right Procedure: Thrombectomy of right lower extremity bypass graft and femoral artery; Surgeon: Claude Garza MD; Location: [facility] OR POD 3; Service: Vascular; Laterality: Right; [...] drink = 0.6 oz pur e alcohol) [employer] Answer Date Recorded In the past 12 months has [employer], gas, oil, or water [employer] threatened to shut off services in your [...] week 12/16/2024 How often do you attend [facility] or anglican services? Never 12/16/2024 Do you belong to any clubs o r organizations such as mu-ism groups, unions, fraternal or athletic groups, or [...] any time in the past 12 m [facility], were you homeless or living in a [...] on file 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 CHILDCARE DIRECTOR Gender Identity Female 03/14/2022 6:19 PM CDT [...] 2022 Influenza Vaccine (Season Ended) 2025 09/07/20 22 Depression Screening 12/13/2025 12/13/2024, 07/22/2024, 07/15/2024 Medical Devices Implanted Type Area Funeral Prearrangement Counselor Device Identifier Shelf Expiration Date Model / Serial / Lot [employer] Riki Patch Vascuguard 0.88cm [id number] - [id number] Implanted:Qty : 1 on 07/01/2024 by Madelyn Vicente MD PhD at [facility] Other - see comments Right: Common Femoral Artery [employer] [id number] 10/02/2025 [id number] / / [id number] [employer] Riki Stent Peripheral [id number] m 6fr Self-Expandin g Blue Strl [id number] 30 - S00 - [id number] Implanted:Qty : 1 on 12/16/2024 by Claude Garza MD at [facility] Stent Right: Femoral [employer] Riki [id number] 05/20/2029 [id number] / 00 / [id number] [employer] Riki Stent Peripheral [id number] m 6fr Self-Expandin g Blue Strl [id number] 30 - S00 - [id number] Implanted:Qty : 1 on 12/16/2024 by Claude Garza MD at [facility] Stent Right: Femoral [employer] Riki [id number] 05/20/2029 [id number] / 00 / [id number] [employer] System Closure Repair Femoral Artery Suture Mediated Perclose Prostyle 85307-45 - [id number] Implanted:Qty : 1 on 12/16/2024 by Claude Garza MD at [facility] Vascular Closure Device Left: Groin [employer] [id number] 08/08/2026 [id number] / / [id number] [employer] System Closure Repair Femoral Artery Suture Mediated Perclose Prostyle 17849-55 - [id number] Implanted:Qty : 1 on 12/16/2024 by Claude Garza MD at [facility] Vascular Closure Device Left: Groin [employer] [id number] 02/05/2025 72683-40 / / [id number] [employer] Restrata Mini Matrix 100mg Micronized Powder Rmini-100 - [id number] Implanted:Qty : 1 on 07/16/2024 by Madelyn Vicente MD PhD at [facility] Right: Groin [employer] 07/11/2025 RMINI-10 0 / / [id number] [employer] Riki Patch Vascuguard 0.88cm [id number] - [id number] - [id number] Implanted:Qty : 1 on 07/22/2024 by Madelyn Vicente MD PhD at [facility] Right: Knee [employer]iki [id number] 02/19/2026 [id number] / [id number] / [id number] [employer] System Closure Repair Femoral Artery Suture Mediated Perclose Prostyle 09925-39 - [id number] Implanted:Qty : 1 on 12/19/2024 by Claude Garza MD at [facility] Right: Groin [employer] [id number] 03/08/2026 [id number] Procedures Procedure Name Priority Date/Time Associated Diagnosis [...] gran abs 0.04 0.00 - 0.10 K/cumm [facility] Lymphocyte abs 4.14(H) 0.80 - 3.30 K/cumm [facility] Monocyte abs 0.89(H) 0.20 - 0.80 K/cumm [facility] Eosinophil abs 0.19 0.00 - 0.50 K/cumm [facility] Basophil abs 0.10 0.00 - 0.10 K/cumm [facility] Neutrophil pct 63.9 % [facility] Comment: Interpretive Data Percent cell count reference ranges are not reported, since discordance with absolute values may lead to misinterpretation of CBC data. Current Interpretive Data was last revised on 2018. Imm gran pct 0.3 % [facility] Comment: Interpretive Data Percent cell count reference ranges are not reported, since discordance with absolute values may lead to misinterpretation of CBC data. Current Interpretive Data was last revised on 2018. Lymphocyte pct 27.8 % [facility] Comment: Interpretive Data Percent cell count reference ranges are not reported, since discordance with absolute values may lead to misinterpretation of CBC data. Current Interpretive Data was last revised on 2018. Monocyte pct 6.0 % [facility] Comment: Interpretive Data Percent cell count reference ranges are not reported, since discordance with absolute values may lead to misinterpretation of CBC data. Current Interpretive Data was last revised on 2018. Eosinophil pct 1.3 % [facility] Comment: Interpretive Data Percent cell count reference ranges are not reported, since discordance with absolute values may lead to misinterpretation of CBC data. Current Interpretive Data was last revised on 2018. Basophil pct 0.7 % [facility] Comment: Interpretive Data Percent cell count reference ranges are not reported, since discordance with absolute values may lead to misinterpretation of CBC data. Current Interpretive Data was last revised on 2018. Blood 01/08/2025 10:1 1 AM CDT 01/08/2025 10:36 AM CDT Kirsten Roa NP LAB BLOOD ROSETTE TUTTLE Final Result [facility] Department [place] [address] * (ABNORMAL) CBC with auto differential (01/08/2025 10:11 AM CDT) WBC 14.88(H) 3.80 - 9.90 K/cumm Hgb 10.7(L) 11.9 - 15.5 g/dL [facility] Hct 34.4(L) 35.6 - 45.5 % [facility] Plt 338 150 - 400 K/cumm [facility] MPV 9.9 9.1 - 12.3 fL [facility] RBC 3.95 3.90 - 5.20 M/cumm [facility] MCV 87.1 81.3 - 96.4 fL [facility] MCH 27.1 27.1 - 33.3 pg [facility] MCHC 31.1(L) 32.3 - 35.7 g/dL [facility] RDW CV 25.1(H) 11.1 - 14.9 % [facility] RDW SD 77.6(H) 35.7 - 48.1 fL [facility] NRBC abs 0.00 0.00 - 0.01 K/cumm [facility] Blood 01/08/2025 10:1 1 AM CDT 01/08/2025 10:36 AM CDT Kirsten Roa NP LAB BLOOD ROSETTE TUTTLE Final Result [facility] [place] [address] * US Arterial Duplex Lower Extremity Right Limited (01/02/2025 4:04 PM CDT) Anatomical Region Laterality Modality Vascular Right Ultrasound 01/02/2025 3:02 PM CDT Narrative 01/03/2025 9:05 PM CDT [facility] - Department of Vascular Surgery, Vascular Laboratory [address] [place] [address] Lower Extremity Arterial Duplex - Bypass Graft Report Patient Name: JEFFERY HAMILTON : 1970 Study Date: 01/02/2025 3:02:10 PM Gender: F Tech: Location: [facility] Ref Provider: MADELYN VICENTE Quality: Adequate [...] 55 cm/s Right Value Units FINDINGS: Performing Dance Artist: Alta Palacios RVT, RDMS. Right Leg: The [...] See Ankle/Brachial Index report. 2. Patent right EXCHANGE ARCHITECT stent. 3. Patent right lower extremity bypass [...] STUDIES: Previous study on 12-17-2024. Patent right EXCHANGE ARCHITECT stent. Patent right BPG. DISCLAIMER: The study [...] above. Electronically Signed By: Claude Garza MD [facility] [phone] 01/03/2025 8:31:22 PM CDT Procedure Note Claude Garza MD - 01/03/2025 [facility] - Department of Vascular Surgery,Vascular Laboratory [address] [place] [address] Lower Extremity Arterial Duplex - Bypass Graft Report Patient Name: JEFFERY HAMILTON : 1970 Study Date: 01/02/2025 3:02:10 PM Gender: F Tech: Location: [facility] Provider: MADELYN VICENTE Quality: Adequate [...] 55 cm/s Right Value Units FINDINGS: Performing Dance Artist: Alta Palacios RVT, RDMS. Right Leg: The [...] See Ankle/Brachial Index report. 2. Patent right EXCHANGE ARCHITECT stent. 3. Patent right lower extremity bypass graft with a >75% stenosis at thedistal graft level. HISTORY: 12-19-2024 right leg angiogram - above knee stenosis 12-16-2024 femoral embolectomy/thrombectomy, BPG thrombectomy, right legangioplasty 10-16-2024 right leg angiogram, right leg angioplasty 07-22-2024 right BPG thrombectomy 07-01-2024 right femoral-popliteal BPG Lower limb ischemia, CKD, DVT, HTN, PAD, PVD. PREVIOUS STUDIES: Previous study on 12-17-2024. Patent right EXCHANGE ARCHITECT stent. Patent right BPG. DISCLAIMER: The study [...] above. Electronically Signed By: Claude Garza MD [facility] [phone] 01/03/2025 8:31:22 PM CDT Madelyn Vicente MD PhD IMG US PROCEDURES Kelsea l Result * US Arterial Doppler Lower Extremity Bilateral (01/02/2025 4:04 PM CDT) Anatomical Region Laterality Modality Vascular Bilateral Ultrasound 01/02/2025 3:29 PM CDT Narrative 01/03/2025 9:06 PM CDT [facility] - Department of Vascular Surgery, Vascular Laboratory [address] [place] [address] Lower Extremity Arterial Doppler Report Patient Name: JEFFERY HAMILTON : 1970 Study Date: 01/02/2025 3:29:00 PM Gender: F Tech: Alta Palacios RVT, RDMS Location: [facility] Provider: MADELYN VICENTE Quality: Adequate Order Provider: MADELYN VICENTE PROCEDURES: Arterial Report: Bilateral lower extremity arterial Doppler exam at rest. INDICATIONS: Z48.812 Encounter for surgical aftercare following surgery on the circulatory system. MEASUREMENTS: Right Value Units Left Value Units Rt Brachial Pressure 156 mmHg Lt Brachial Pressure 152 mmHg Rt PRESS ASSISTANT Pressure 138 mmHg Lt PRESS ASSISTANT Pressure 120 mmHg Rt DPA Pressure 126 mmHg Lt DPA Pressure 114 mmHg Rt 1st Digit Pressure 90 mmHg Lt 1st Digit Pressure 122 mmHg Rt PT KAROLYN Resting 0.88 Lt PT KAROLYN Resting 0.77 Rt AT KAROLYN Resting 0.81 Lt AT KAROLYN Resting 0.73 Rt Digit/Arm Index 0.58 Lt Digit/Arm Index 0.78 Right Value Units Left Value Units FINDINGS: Performing Dance Artist: Alta Palacios RVT, RDMS. Right Common Femoral [...] above. Electronically Signed By: Claude Garza MD [facility] [phone] 01/03/2025 8:56:56 PM CDT Procedure Note Claude Garza MD - 01/03/2025 [facility] - Department of Vascular Surgery,Vascular Laboratory [address] [place] [address] Lower Extremity Arterial Doppler Report Patient Name: JEFFERY HAMILTON : 1970 Study Date: 01/02/2025 3:29:00 PM Gender: F Tech: Alta Palacios T, [facility] Location: [facility] Provider: MADELYN VICENTE Quality: Adequate Order Provider: MADELYN VICENTE PROCEDURES: Arterial Report: Bilateral lower extremity arterial Doppler exam at rest. INDICATIONS: Z48.812 Encounter for surgical aftercare following surgery on thecirculatory system. MEASUREMENTS: Right Value Units Left Value Units Rt Brachial Pressure 156 mmHg Lt Brachial Pressure 152 mmHg Rt PRESS ASSISTANT Pressure 138 mmHg Lt PRESS ASSISTANT Pressure 120 mmHg Rt DPA Pressure 126 mmHg Lt DPA Pressure 114 mmHg Rt 1st Digit Pressure 90 mmHg Lt 1st Digit Pressure 122 mmHg Rt PT KAROLYN Resting 0.88 Lt PT KAROLYN Resting 0.77 Rt AT KAROLYN Resting 0.81 Lt AT KAROLYN Resting 0.73 Rt Digit/Arm Index 0.58 Lt Digit/Arm Index 0.78 Right Value Units Left Value Units FINDINGS: Performing Dance Artist: Alta Palacios RVT, YOLANDA. Right Common Femoral Artery Analysis: The common [...] above. Electronically Signed By: Claude Garza MD [facility] [phone] 01/03/2025 8:56:56 PM CDT [facility] Cindy Vicente MD PhD IMG US PROCEDURES Kelsea l Result from Last 3 Months Additional Health Concerns Infection Onset Date Last Indicated MDR gram neg/ESBL 07/23/2024 08/01/2024 Insurance [facility] [place] [address] [facility] MEDICARE [facility] MEDICARE ADVANTAGE Advance Directives For more information, please contact: [phone] * Full Code (Latest Code Status on [...] 11:02 AM 07/03/2024 11:02 AM Care Teams Export Freight Clerk Relationship Specialty Start Date End Date Mor Blancas MD [address] [place] [address] PCP - General Emergency Medicine 03/25/24 Flynn Ma MD [address] [facility] [address] [place] [address] Medical Oncologist/Doll Wig Maker Rooted Hair Medical Oncology 09/28/18 Colleen Diaz MD [address] [place], [place] [address] Referring Physician Nephrology 03/24/22 Derek Wilson MD [address] [place] [address] Referring Physician Obstetrics and Gynecology 06/26/23 Mar Jay MD [address] [facility] [address] Surgeon Vascular Surgery 08/24/23 Mitch Austin DO [address] [place] [address] Surgeon Surgery 09/26/23 Madelyn Vicente MD PhD [address] [facility] [address] [place] [address] Registered Nurse Vascular Surgery 07/05/24 Eric Washington MD [address] [place] [address] Consulting Physician Plastic Surgery 07/29/24
--- OUTSIDE RECORDS SUMMARY | 2025-03-26 16:35 | XMS_ITS ---
Author Organization [facility] Address [address] [place] [address] Care Team Providers Care Propulsion Engineer Name Role Phone Flynn Ma MD Unavailable [phone] Colleen Diaz MD Unavailable Derek Wilson MD Unavailable [phone] Mar Jay MD Unavailable [phone] Mitch Austin DO Unavailable [phone] Mor Blancas MD Primary Care Provide r Madelyn Vicente MD PhD Unavailable [phone] Eric Washington MD Unavailable [phone] Active Problems Problem Noted Date Diagnosed Date [...] underwent emergent OR s/p thrombectomy of R MANAGER UTILITIES, bypass graft, below knee popliteal. R groin [...] 07/02/2024 Assessment & Plan (10/16/2024 2:41 PM MAIL WEIGHER): Has chronic abdominal pain due to likely [...] ordered Assessment & Plan (10/16/2024 2:42 PM MAIL WEIGHER): Hx RLE arterial occlusion/DVT 07/2023; h/o splenic [...] 07/01/2024 Assessment & Plan (10/16/2024 2:40 PM MAIL WEIGHER): Patient with previous right lower extremity bypass [...] 07/22: emergent OR s/p thrombectomy of R MANAGER UTILITIES, bypass graft, below knee popliteal. R groin [...] lateral thigh PRS: Prolene sutures. Daily vaseline, PRIVATE DUTY LPN. Wound vac to thigh replaced Assessment & [...] 06/26/2023. Held Plavix/Eliquis due to bleeding. - Steam Crane Operator consult on 08/08 - Hold home [...] 2016, in remission April 2023. Follows with [facility]. Current Treatment and Therapy Plans No [...] 06/0 12/2023 Overview (08/07/2023): Recently hospitalized at [place] for pyelonephritis. Discharged on Keflex (08/01-08/10). - Continue cephalexin 500 mg BID. Assessment & Plan (08/07/2023 10:53 PM CDT): Recently hospitalized at [facility] for pyelonephritis. Discharged on Keflex (08/01-08/10). - Continue cephalexin 500 mg BID. Flu vaccine need 09/07/2022 08/07/2023 Dehydration 06/27/2022 08/07/2023 Immunocompromised 05/18/2022 08/07/2023
--- OUTSIDE RECORDS SUMMARY | 2025-03-26 16:35 | XMS_ITS | Clinical Summary ---
Author Organization [facility] Address [address] [place] [address] Care Team Providers Care Residential Finish Carpenter Name Role Phone Chester Banks MD Primary Care Provider Eder coats Allergies No known active allergies Social History Tobacco Use Types Packs/Day Years Used Date Smoking Tobacco: Never Assessed Comments Unknown Sex and Gender Information Value Date Recorded Sex Assigned at Not on file Legal Sex Female 10:28 AM PRINCIPAL LIBRARIAN Gender Identity Not on file Sexual Orientation [...] 7:26 PM CDT Height 167.6 cm (5' 6) 08/10/2018 7:26 PM CDT Body Mass Index [...] Screening with HPV 2002 Mammogram Screening 2012 Pneumococcal Vaccine: 50+ Ye ars (1 of 1 - PCV) 2022 Zoster Vaccines (1 of 2) 2022 COVID-19 Vaccine (1 - 2023-2 5 season) 2024 Meningococcal B Vaccine Aged Out No l onger eligible based on patient's age to complete this topic Meningococcal Vaccine Aged Out No semaj john eligible based on patient's age to complete this topic RSV Immunizations Under 20 Months Aged Out No longer eligible based on patient's age to complete this topic Care Teams Residential Finish Carpenter Relationship Specialty Start Date End Date Chester Banks MD PCP - General SURGERY 08/10/18
== END 2025-03-26 14:40 | disposition home or self-care (01) ==
LOC: CHSIMG 14:39
PROVIDERS: PCP Emergency Medicine; Visit Provider Emergency Medicine
DX: J32.9 Chronic sinusitis, unspecified (principal); J34.2 Deviated nasal septum; H74.8X2 Other specified disorders of left middle ear and mastoid
CPT/HCPCS: 70486

== ENCOUNTER 2025-04-22 16:43 | Outpatient (CLI) | payer MEDICARE, SELFPAY ==
--- OUTSIDE RECORDS SUMMARY | 2025-04-22 16:46 | XMS_ITS | Clinical Summary ---
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
--- OUTSIDE RECORDS SUMMARY | 2025-04-22 16:46 | XMS_ITS | Data Portability ---
Author Organization [facility] [place] Address [address] [place] [address] Care Team Providers Care Chick Grader Name Role Phone MONIKA MOSS Primary Care Provider Assessment No assessment recorded. Plan of Treatment Reminders Order Date Submit Date Provider Last Modified By Organization Details Last Modified Time Details Appointments None recorded. Lab None recorded. Referral None recorded. Procedures None recorded. Surgeries total hysterecto my, laparoscop ic, with bilateral salpingo-o ophorectom y (SURG) 2022 04/ [address] Surgery [facility] [place] [address], [place], [address], 15:52:32 Imaging None recorded. Medication Orders None [...] 23 HYSTEROSCOPY, WITH ENDOMETRIAL ABLATION (SURG) completed [facility] 07/06/2023 10:31:53 06/26/20 23 bone marrow sampling completed Naomi Perry [facility] 07/03/2023 12:43:24 12/22/19 23 HYSTEROSCOPY, WITH ENDOMETRIAL ABLATION (SURG) completed Ofelia Marquez [facility] 12/22/2022 10:38:59 12/05/19 23 Endometrial Biopsy completed Derek Wilson MD [address], [place], [address], [facility] 12/05/2022 12:02:42 11/14/19 23 Date of Last Pap Smear completed [facility] 07/03/2023 11:21:33 10/09/19 23 Transfusion bld/bld compnt completed [facility] 07/03/2023 12:48:56 07/09/20 22 bone marrow sampling completed [facility] 07/03/2023 12:43:19 10/09/19 21 kidney biopsy completed [facility] 07/03/2023 12:42:31 10/09/18 99 tonsilectomy/ad enoids completed [facility] 07/03/2023 12:42:14 Imaging Results None recorded. Procedure Notes None recorded. Medical Equipment None Reported. Allergies Allergen ID Allergen Name Allergen Category Reaction Reaction Severity Criticality Documentation Date Start Date Code Code System Note Provider Name and Address Organization Details Recorded Time tetracycl ine medicatio n other moderate Not available 11/14/2022 29791 RxNorm Yasmine toscano, [facility] 14:50:26 Medications Name Sig Start [...] Available prochlorper azine maleate 10 mg tablet 09/25 /2023 completed Not Available Not Available Not Available [...] Updated DateTime 01/19/2024 167.64 cm 35.6 kg/m2 40630.76 g 162/98 mm[Hg] Caterina Matosse [facility] 01/19/2024 15:49:22 Date Recorded Body height Body mass index (BMI) Body weight Systolic And Diastolic Provider Name and Address Organization Details Last Updated DateTime 02/01/2024 167.64 cm 34.9 kg/m2 04370.95 g 127/81 mm[Hg] Angelika Matos [facility] 02/01/2024 12:50:20 Date Recorded Body height Body mass index (BMI) Body weight Systolic And Diastolic Provider Name and Address Organization Details Last Updated DateTime 07/03/2023 167.64 cm 42 kg/m2 999961.02 g 133/80 mm[Hg] Naomi Perry [facility] 07/03/2023 12:37:39 Date Recorded Body height Body mass index (BMI) Body weight Systolic And Diastolic Provider Name and Address Organization Details Last Updated DateTime 07/13/2023 167.64 cm 40.7 kg/m2 028404.28 g 136/78 mm[Hg] Sheryl Fernanda [facility] 07/13/2023 14:07:23 Social History Question [...] Or The Highest Degree You Have Received? [id number] Information not available 11/14/2022 Are There Any [...] Have Difficulty Walking Or Climbing Stairs? No [email or web address] Information not available 07/13/2023 Sex: Unknown Functional Status Question Answer Note LastModified by Organizat ion Details LastModified Time Do you use any illicit or recreational drugs? No Information not available 11/14/2022 What is your level of alcohol consumption? None Information not available 11/14/2022 Are you able to walk? YESWOREST Information not available 11/14/2022 Are you able to care for yourself? 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 No [email or web address] Information not available 07/13/2023 What is your exercise level? None Information not available 11/14/2022 Mental Status Question Answer Note LastModified by Organization D etails LastModified Time Do you feel stressed (tense, restless, nervous, or anxious, or unable to sleep at night)? [id number] Information not available 11/14/2022 Family History Relationship Description Onset Age of this Age Resolved Age Notes LastModified by Organization Details LastModified Time Maternal Uncle Diabetes mellitus [email or web address] Not available 07/03 12:37:51 Unspecified Relation Diabetes mellitus [email or web address] Not available 07/03 12:37:51 Paternal Aunt Diabetes mellitus [email or web address] Not available 07/03 12:37:51 Paternal Grandmother Malignant tumor of colon [email or web address] Not available 07/03 12:37:51 Medical History Condition Response Allergies (Food, seasonal, environmental ) N Other Y Blood Transfusion Y Drug/Latex Allergies/Reactions Y Breast Cancer N Dermatologic Disorders Y Lung Disease N Defects [...] SNOMED-CT Code Diagnosis ICD10 Code Diagnosis Note [id number] JAZMYN Prado [place] [address] [address] 11/14/2022 14:26:11 11/14/2022 17:50:32 Abnormal uterine bleeding 6344032032 9100 N93.9 Today we reviewed a detailed [...] plan of care. Venereal d isease screening 778839843 Z11.3 Screening for malignant neoplasm of cervix 775582883 Z12.4 [id number] Derek Wilson MD [place] [address] [address] 11/24/2022 16:21:13 11/24/2022 17:03:29 Abnormal uterine bleeding 6529172732 9100 N93.9 [id number] Derek Wilson MD [place] [address] [address] 12/05/2022 11:00:58 12/05/2022 12:10:21 Menorrhagia 432668679 N92.0 Lesion of endometrium 92 50562567 9101 N85.9 informed patient of vulvar lesions [...] biopsy well. Was performed without complicati ons. [id number] [facility] [address] [address] 12/16/2022 14:18:51 12/16/2022 15:17:41 Menorrhagia 303961201 N92.[address] Wilson today prior to patient leaving as this situation is out of my scope of practice in acuity. He has agreed to see her & continue to manage her care today.Deborah ent sent upstairs and appropriat e staff was alerted to her situation & change in provider she is seeing today. [id number] Derek Wilson MD [place] [address] [address] 12/16/2022 15:21:22 12/16/2022 17:46:01 Abnormal uterine bleeding 0418200903 9100 N93.9 Menorrhagia 660931746 N9 2.0 This patient is a 52-year-ol [...] procedure. We agreed to move forward Anemia 682956813 D64.9 [id number] Derek Wilson MD [place] [address],[place] [address] 12/16/2022 17:21:41 12/19/2022 15:25:58 Abnormal uterine bleeding 1740186519 9100 N93.9 [id number] Derek Wilson MD [place] [address],[place] [address] 12/26/2022 10:20:38 12/26/2022 15:13:28 [id number] Derek Wilson MD [place] [address],[place] [address] 12/29/2022 11:36:42 12/29/2022 12:27:49 Menorrhagia 368072997 N92.0 This patient is a 52-year-ol d female who presents for follow-up on menorrhagi a. We performed endometria l ablation. She has watery vaginal discharge. She is recovering normally. She is still on Eliquis. She will see her hematologi st in a few weeks. [id number] Derek Wilson MD [place] [address],[place] [address] 04/28/2023 14:18:00 04/28/2023 15:14:24 Menorrhagia 044329874 N92.0 This patient is a 52-year-ol d [...] face-to-fa ce. More than 50% was counseling [id number] Derek Wilson MD [place] [address],[place] [address] 06/15/2023 16:14:22 06/16/2023 12:28:34 Menorrhagia 837407545 N92.0 52-year-ol d female with severe menorrhagi [...] not have any bleeding in the more. [id number] Derek Wilson MD [place] [address],[place] [address] 07/03/2023 12:24:04 07/03/2023 14:53:16 Menorrhagia 964497181 N92.0 this patient is a 52-year-ol d female with menorrhagi a. We have agreed to perform endometria l ablation. She understand s the risks, benefits, and alternativ es. She has completed the informed consent process is ready to proceed. [id number] Derek Wilson MD [place] [address],[place] [address] 07/06/2023 09:59:17 07/06/2023 10:00:03 [id number] Derek Wilson MD [place] [address],[place] [address] 07/13/2023 13:45:09 07/13/2023 14:34:11 Abnormal uterine bleeding 6406353699 9100 N93.9 Menorrhagia 940031814 N9 2.0 this patient is a 52-year-ol [...] ic hysterecto my bilateral salpingo-o ophorectom y. [id number] Derek Wilson MD [place] [address] [address] 01/19/2024 15:42:39 01/20/2024 10:38:12 Menorrhagia 468138727 N92.0 this patient is a 52-year-ol d female with severe menorrhagi a. We will perform total laparoscop ic hysterecto my bilateral salpingo-o ophorectom y. she understand s the risks, benefits, and alternativ es. She is completed the informed consent process and is ready to proceed. [id number] Derek Wilson MD [place] [address] [address] 02/01/2024 12:42:03 02/01/2024 16:24:50 Postoperative care 263379553 Z48.89 female Patient presents for postop follow-up. [...] Blanco Member ID Guarantor Name 02/05/2024 1 [facility] (MEDICARE REPLACEMENT/A DVANTAGE - PPO) [id number] Nicole Hamilton [id number] Nicole Hamilton 01/31/2024 2 MEDICAID-[place]: [facility] OF PUBLIC AID Nicole Hamilton [id number] Nicole Hamilton Notes Date Note Type Note [...] infection Derek Wilson MD [address], [place], [address], [facility] 07/03/2023 14:48:46 07/13/2023 text/html this [...] hysterectomy in detail. We spent 40 minutes [id number] discussing the details of hysterectomy, her bleeding, treatment options. We made a decision to perform surgery. We will perform total laparoscopic hysterectomy bilateral salpingo-oophorect daisy. Derek Wilson MD [address], [place], [address], [facility] 07/13/2023 14:34:01 01/19/2024 text/html [...] infection. Derek Wilson MD [address], [place], [address], [facility] 01/19/2024 16:47:26 02/01/2024 text/html female Patient presents for postop follow-up. She is 1 week postop from a total laparoscopic hysterectomy bilateral salpingo oophorectomy. She has no complaints. Her incisions are clean dry and intact. She is recovering normally. She will follow-up as needed. Derek Wilson MD [address], [place], [address], [facility] 02/01/2024 16:05:40 OBGyn Episode Ob Episode Information Episode Created Date Number of Fetuses Patient Bloodtype Patient rh Status Prepregnancy Weight lbs Domestic Partner Domestic Partner Phone Father Name Wire Bound Box Machine Operator Status 11/14/19 23 1 CLOSED Fetus Data First Name Last Name Admitted to NICU Weight (g) Sex Living Outcome Pediatric Complications Fetus ID Race Codes Race Delivery Type 3231.84 3 F Prematur e 04475 Vaginal Delivery Vijay Calculation Initial Vijay Date [...] Domestic Partner Domestic Partner Phone Father Name Wire Bound Box Machine Operator Status 07/03/20 23 1 CLOSED Fetus Data First Name Last Name Admitted to NICU Weight (g) Sex Living Outcome Pediatric Complications Fetus ID Race Codes Race Delivery Type , Induced [id number] Vijay Calculation Initial Vijay Date Initial Exam [...]
--- OUTSIDE RECORDS SUMMARY | 2025-04-22 16:46 | XMS_ITS | Encounter Summary ---
Author Organization [facility] Address [address] [place] [address] Phone Care Team Providers Care Final Inspector Movement Assembly Name Role Phone Flynn Ma MD Unavailable [phone] Ari Elmore DO Primary Care Provider Colleen Diaz MD Unavailable Derek Wilson MD Unavailable [phone] Mar Jay MD Unavailable Mitch Austin DO Unavailable [phone] Mor Blancas MD Primary Care Provide r Madelyn Vicente MD PhD Unavailable [phone] Eric Washington MD Unavailable [phone] Encounter Details Date Type Department Care Team [...] on file 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 QUARRYING SPECIALIST Gender Identity Female 03/14/2022 6:19 PM CDT [...] documented as of this encounter Care Teams Final Inspector Movement Assembly Relationship Specialty Start Date End Date Ari Elmore DO [address] [place] [address] PCP - General Family Medicine 12/16/20 03/24/24 Mor Blancas MD [address] [place] [address] PCP - General Emergency Medicine 03/25/24 Flynn Ma MD [address] [facility] [address] [place] [address] Medical Oncologist/Car Body Designer Medical Oncology 09/28/18 Colleen Diaz MD [address] [place] [address] Referring Physician Nephrology 03/24/22 Derek Wilson MD [address] [place] [address] Referring Physician Obstetrics and Gynecology 06/26/23 Mar Jay MD [address] [place] [address] Surgeon Vascular Surgery 08/24/23 Mitch Austin DO [address] [facility] [address] [place] [address] Surgeon Surgery 09/26/23 Madelyn Vicente MD PhD [address] [facility] [address] [place] [address] Registered Nurse Vascular Surgery 07/05/24 Eric [place] MD [address] [place] [address] Consulting Physician Plastic Surgery 07/29/24 documented as of this encounter
--- OUTSIDE RECORDS SUMMARY | 2025-04-22 16:46 | XMS_ITS ---
Author Organization [facility] Address [address] [place] [address] Care Team Providers Care Chief Operator Lock Tender Name Role Phone Flynn Ma MD Unavailable [phone] Colleen Diaz MD Unavailable Derek Wilson MD Unavailable [phone] Mar Jay MD Unavailable [phone] Mitch Austin DO Unavailable [phone] Mor Blancas MD Primary Care Provide r Madelyn Vicente MD PhD Unavailable [phone] Eric Washington MD Unavailable [phone] Active Problems Problem Noted Date Diagnosed Date [...] underwent emergent OR s/p thrombectomy of R BARREL TESTER, bypass graft, below knee popliteal. 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 R groin [...] lateral thigh PRS: Prolene sutures. Daily vaseline, NEON ELECTRICIAN. Wound vac to thigh replaced Assessment & [...] 06/26/2023. Held Plavix/Eliquis due to bleeding. 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 Follows with [facility]. Current Treatment and Therapy Plans No current [...] 06/0 12/2023 Overview (08/07/2023): Recently hospitalized at [facility] for pyelonephritis. Discharged on Keflex (08/01-08/10). - Continue cephalexin 500 mg BID. Assessment & Plan (08/07/2023 10:53 PM CDT): Recently hospitalized at [facility] for pyelonephritis. Discharged on Keflex (08/01-08/10). - Continue cephalexin 500 mg BID. Flu vaccine need 09/07/2022 08/07/2023 Dehydration 06/27/2022 08/07/2023 Immunocompromised 05/18/2022 08/07/2023
--- OUTSIDE RECORDS SUMMARY | 2025-04-22 16:46 | XMS_ITS | Encounter Summary ---
Author Organization 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 [address] [place] [address] Medical Oncologist/Scaleman Medical Oncology 09/28/18 Colleen Diaz MD [address] [place] [address] Referring Physician Nephrology 03/24/22 Derek Wilson MD [address] [place] [address] Referring Physician Obstetrics and Gynecology 06/26/23 Mar Jay MD [address] [place] [address] Surgeon Vascular Surgery 08/24/23 Mitch Austin DO [address] [address] Surgeon Surgery 09/26/23 Madelyn Vicente MD PhD [address] [facility] [address] [place] [address] Registered Nurse Vascular Surgery 07/05/24 Eric Washington MD [address] [place] [address] Consulting Physician Plastic Surgery 07/29/24 documented as of this encounter
--- OUTSIDE RECORDS SUMMARY | 2025-04-22 16:46 | XMS_ITS | Referral Summary ---
Author Organization [facility] Address [address] [place] [address] Care Team Providers Care Primer Inspector Name Role Phone Flynn Ma MD Unavailable Colleen Diaz MD Unavailable Derek Wilson MD Unavailable Mar Jay MD Unavailable Mitch Austin DO Unavailable [phone] Mor Blancas MD Primary Care Provide r Madelyn Vicente MD PhD Unavailable [phone] Eric Washington MD Unavailable [phone] Encounters Date Type Department Care Team Description 04/09/2025 Telephone [facility] [address] [facility] Floor [address] [place] [address] Stephani Robertson 04/09/2025 9:30 AM CDT Ancillary Procedure [facility] 8th [place] [address] [place] [address] Encounter for surgical aftercare following surgery on the circulatory system; Presence of other vascular implants and grafts 04/09/2025 10:30 AM CDT Office Visit [facility] 8th [place] [address] [place] [address] Madelyn Vicente MD PhD PAD (peripheral artery disease) (Primary Dx) 03/31/2025 Telephone [facility]) - [facility] Minimally Invasive Surgery [address] [facility] 12th Floor, [place] [phone] Sheryl To, RMA 03/28/2025 Telephone [facility]) - [facility] Minimally Invasive Surgery [address] [facility] 12th Floor, [place] [phone] Render, Sheryl Schultz, RMA 03/25/2025 Orders Only [facility]) [facility] Minimally Invasive Surgery [address] [facility] 12th Floor, [place] [phone] Render, Sheryl Schultz, RMA 03/04/2025 Orders Only [facility] [address] [facility] Floor 6 [place] [phone] Stephani Robertson Acute lower limb ischemia (Primary Dx) 01/30/2025 Telephone [facility] Pre Anesthesia Testing [address] [place] [phone] Karen Delarosa from Last 3 Months Allergies Active Allergy Reactions Criticality Noted Date Comments Gentian Patricia Blisters High 09/22/2021 Medications allopurinoL (ZYLOPRIM) 100 mg tabletIndications: prevention of acute gout attack Take 1 tablet (100 mg total) by mouth 2 (two) times a day 12/08/19 21 Active ondansetron ODT (ZOFRAN-ODT) 4 mg disintegrating tablet Take 1 tablet (4 mg total) by mouth every 8 (eight) hours as needed for nausea or vomiting 04/03/20 24 Active aspirin 81 mg chewable tablet Take 1 tablet (81 mg total) by mouth daily 07/06/[address] (PROTONIX) 40 mg EC tabletIndications: Treatment of Non-Bleeding Gastric Disorder Take 1 tablet (40 mg total) by mouth 2 (two) times a day 60 tablet 3 07/05/20 24 025 Active metoprolol XL (TOPROL-XL) 50 mg extended release tabletIndications: hypertension Take 1 tablet (50 mg total) by mouth every morning 08/16/20 24 Active ALPRAZolam (XANAX) 0.5 mg tabletIndications: anxiety Take 1 tablet (0.5 mg total) by mouth 3 (three) times a day as needed for anxiety 08/20/20 24 Active amLODIPine (NORVASC) 5 mg tabletIndications: hypertension Take 1 tablet (5 mg total) by mouth every morning 09/16/20 24 Active lisinopriL (PRINIVIL,ZESTRIL) 40 mg tabletIndications: hypertension Take 1 tablet (40 mg total) by mouth 2 (two) times a day 09/16/20 24 Active apixaban (ELIQUIS) 5 mg tablet Take 1 tablet (5 mg total) by mouth 2 (two) times a day Active atorvastatin (LIPITOR) 20 mg tabletIndications: hyperlipidemia Take 1 tablet (20 mg total) by mouth 2 (two) times a day 12/20/19 25 Active clopidogreL (PLAVIX) 75 mg tablet Take 1 tablet (75 mg total) by mouth daily 12/22/19 25 Active azelastine (ASTELIN) 137 mcg (0.1 %) nasal spray 02/04/20 25 Active eszopiclone (LUNESTA) 1 mg tablet 02/04/20 25 Active fluticasone propionate (FLONASE) 50 mcg/actuation nasal spray SPRAY 1 SPRAY IN EACH NOSTRIL TWICE DAILY 01/22/20 25 Active methylPREDNISolone (MEDROL DOSEPACK) 4 mg Dosepack 02/04/20 25 Active predniSONE (DELTASONE) 20 mg tablet 03/05/20 25 Active amoxicillin-clavul anate (AUGMENTIN) 875-125 mg per tablet 03/12/20 25 Active acetaminophen 500 mg capsule Take 2 capsules (1,000 mg total) by mouth every 6 (six) hours 12/20/19 25 025 Discontinued cephalexin (KEFLEX) 500 mg capsule 03/05/20 25 025 Discontinued Active Problems Problem Noted Date Diagnosed [...] underwent emergent OR s/p thrombectomy of R DATABASE REPORTING CONSULTANT, bypass graft, below knee popliteal. R groin [...] 07/02/2024 Assessment & Plan (10/16/2024 2:41 PM SENIOR SOFTWARE DEVELOPMENT ENGINEER): Has chronic abdominal pain due to likely [...] ordered Assessment & Plan (10/16/2024 2:42 PM SENIOR SOFTWARE DEVELOPMENT ENGINEER): Hx RLE arterial occlusion/DVT 07/2023; h/o splenic [...] 07/01/2024 Assessment & Plan (10/16/2024 2:40 PM SENIOR SOFTWARE DEVELOPMENT ENGINEER): Patient with previous right lower extremity bypass [...] 07/22: emergent OR s/p thrombectomy of R DATABASE REPORTING CONSULTANT, bypass graft, below knee popliteal. R groin [...] 06/26/2023. Held Plavix/Eliquis due to bleeding. 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 Follows with [facility]. Resolved Problems Problem Noted Date Diagnosed Date Resolved Date Urinary tract infection 08/07/2023 06/0 12/2023 Overview (08/07/2023): Recently hospitalized at [facility] for pyelonephritis. Discharged on Keflex (08/01-08/10). - Continue cephalexin 500 mg BID. Assessment & Plan (08/07/2023 10:53 PM CDT): Recently hospitalized at [facility] for pyelonephritis. Discharged on Keflex (08/01-08/10). - [...] drink = 0.6 oz pur e alcohol) [facility] Utilities Answer Date [...] often do you attend chur ch or amish services? Never 12/16/2024 Do you belong to any clubs o r organizations such as presybeterian groups, unions, fraternal or athletic groups, or [...] any time in the past 12 m [facility], were you homeless or living in a detention (including now)? No 12/16/2024 Personal Safety Answer Date Recorded Have you ever been in or are you currently in a harmful physical or emotional relationship or is someone making you feel afraid or unsafe? Denies 12/19/2024 Comments No Sex and Gender Information Value Date Recorded Sex Assigned at Not on file 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 SENIOR SOFTWARE DEVELOPMENT ENGINEER Gender Identity Female 03/14/2022 6:19 PM CDT Sexual Orientation Not on file Last Filed Vital Signs Vital Sign Reading Time Taken Comments Blood Pressure 157/84 04/09/2025 10:35 AM CDT Pulse 60 04/09/2025 10:35 AM CDT Temperature 36.4 C (97.6 F) 12/19/2024 12:10 PM CDT Respiratory Rate 18 12/19/2024 12:10 PM CDT Oxygen Saturation 100% 04/09/2025 10:35 AM CDT Inhaled Oxygen Concentration - - Weight 100.7 kg (222 lb) 04/09/2025 10:35 AM CDT Height 162.6 cm (5' 4) 04/09/2025 10:35 AM CDT Body Mass Index 38.11 04/09/2025 10:35 AM CDT Plan of Treatment Not on file Medical Devices Implanted Type Area Tool Profiling Machine Set Up Operator Device Identifier Shelf Expiration Date Model / Serial / Lot CEDU Patch Vascuguard 0.88cm [id number] - [id number] Implanted:Qty : 1 on 07/01/2024 by Madelyn Vicente MD PhD at [facility] Other - see comments Right: Common Femoral Artery CEDU [id number] 10/02/2025 [id number] / / [id number]- [id number] [employer] Riki Stent Peripheral [id number] m 6fr Self-Expandin g Blue Strl [id number] 30 - S00 - [id number] Implanted:Qty : 1 on 12/16/2024 by Claude Garza MD at [facility] Stent Right: Femoral [employer] Riki [id number] 05/20/2029 [id number] / / [id number] [employer] Riki Stent Peripheral [id number] m 6fr Self-Expandin g Blue Strl [id number] 30 - S00 - [id number] Implanted:Qty : 1 on 12/16/2024 by Claude Garza MD at [facility] Stent Right: Femoral [employer] Riki [id number] 05/20/2029 [id number] / / [id number] [employer] System Closure Repair Femoral Artery Suture Mediated Perclose Prostyle 62839-32 - [id number] Implanted:Qty : 1 on 12/16/2024 by Claude Garza MD at [facility] Vascular Closure Device Left: Groin [employer] [id number] 08/08/2026 [id number] / / [id number] [employer] V[employer] System Closure Repair Femoral Artery Suture Mediated Perclose Prostyle 77533-65 - [id number] Implanted:Qty : 1 on 12/16/2024 by Claude Garza MD at [facility] Vascular Closure Device Left: Groin [employer] [id number] 02/05/2025 55502-37 / / [id number] [employer] Restrata Mini Matrix 100mg Micronized Powder Rmini-100 - [id number] Implanted:Qty : 1 on 07/16/2024 by Madelyn Vicente MD PhD at [facility] Right: Groin [employer] 07/11/2025 [id number]-10 0 / / [id number] [employer] Riki Patch Vascuguard 0.88cm [id number] - [id number] - [id number] Implanted:Qty : 1 on 07/22/2024 by Madelyn Vicente MD PhD at [facility] Right: Knee [employer] Riki [id number] 02/19/2026 [id number] / [id number] / [id number]- [id number] [employer] System Closure Repair Femoral Artery Suture Mediated Perclose Prostyle 42357-10 - [id number] Implanted:Qty : 1 on 12/19/2024 by Claude Garza MD at [facility] Right: Groin [employer] [id number] 03/08/2026 59134-29 / / [id number] Procedures Procedure Name Priority Date/Time Associated Diagnosis Comments US ARTERIAL DUPLEX LOWER EXTREMITY RIGHT LIMITED Routine 04/09/2025 10:54 AM CDT Encounter for surgical aftercare following surgery on the circulatory system Presence of other vascular implants and grafts US ARTERIAL DOPPLER LOWER EXTREMITY BILATERAL Routine 04/09/2025 10:54 AM CDT Encounter for surgical aftercare following surgery on the circulatory system Presence of other vascular implants and grafts from Last 3 Months Results * US Arterial Duplex Lower Extremity Right Limited (04/09/2025 10:54 AM CDT) Anatomical Region Laterality Modality Vascular Right Ultrasound 04/09/2025 9:25 AM CDT Narrative 04/10/2025 2:34 PM CDT [facility] - Department of Vascular Surgery, Vascular Laboratory [address] [place] [address] Lower Extremity Arterial Duplex - Bypass Graft Report Patient Name: JEFFERY HAMILTON : 1970 Study Date: 04/09/2025 9:25:37 AM Gender: F Tech: Location: [facility] Provider: MADELYN VICENTE Quality: Adequate Order Provider: MADELYN VICENTE PROCEDURES: Arterial Report: Common femoral to Popliteal Bypass Graft. INDICATIONS: Z48.812 Encounter for surgical aftercare following surgery on the circulatory system and Z95.828 Presence of other vascular implants and grafts. MEASUREMENTS: Right Value Units Rt Inflow Artery 180 cm/s Rt Proximal Anastomosis 104 cm/s Rt Proximal Graft 46 cm/s Rt Mid Graft 55 cm/s Rt Distal Graft 464 cm/s Rt Distal Anastomosis 69 cm/s Rt Outflow Artery 43 cm/s Right Value Units FINDINGS: Performing Hide Measuring Machine Operator: Shelia Jameson RVT. Right Leg: The inflow EIA/DATABASE REPORTING CONSULTANT stent waveform is multiphasic. The proximal anastomosis (stented) waveform is multiphasic. There is presence arterial flow outside the the distal stent dickinson (diameter 0.26cm, length of flow channel 1.5cm, peak velocity 25cm/s) and may be due to incomplete aposition to arterial wall. No evidence of pseudoaneurysm. The proximal graft waveform is multiphasic. The mid graft waveform is multiphasic. Systolic velocity ratio at the distal graft (just above knee) is 6.3 which is consistent with a >50% stenosis. The distal anastomosis waveform is multiphasic. The outflow waveform is multiphasic. Provider Notification: Results called on the above date to Madelyn Vicente MD(via WILBERTO Bolton). Time of call 10:18am. Patient sent to clinic for follow up appointment. CONCLUSIONS: 1. Patent right lower extremity bypass graft with a >50% stenosis at the distal graft level. 2. Small channel of persistent arterial flow detected outside the distal stent wall and mayb be consistent with possible stent malapposition - no evidence of pseudoaneurysm. HISTORY: 12-19-2024 right leg angiogram - above knee stenosis 12-16-2024 femoral embolectomy/thrombectomy, BPG thrombectomy, right leg angioplasty 10-16-2024 right leg angiogram, right leg angioplasty 07-22-2024 right BPG thrombectomy 07-01-2024 right femoral-popliteal BPG Lower limb ischemia, CKD, DVT, HTN, PAD, PVD. - PREVIOUS STUDIES: Previous study on 01/02/25, Patent right lower extremity bypass graft with a >75% stenosis at the distal graft level and patent DATABASE REPORTING CONSULTANT stent - DISCLAIMER: The study images and the [...] Electronically Signed By: Willy Medellin MD FACS 04/10/2025 2:34:12 PM CDT Procedure Note Willy Medellin MD - 04/10/2025 [facility] - Department of Vascular Surgery,Vascular Laboratory [address] [place] [address] Lower Extremity Arterial Duplex - Bypass Graft Report Patient Name: JEFFERY HAMILTON : 1970 Study Date: 04/09/2025 9:25:37 AM Gender: F Tech: Location: [facility] [place] Provider: MADELYN VICENTE Quality: Adequate Order Provider: MADELYN VICENTE PROCEDURES: Arterial Report: Common femoral to Popliteal Bypass Graft. INDICATIONS: Z48.812 Encounter for surgical aftercare following surgery on thecirculatory system and Z95.828 Presence of other vascular implants and grafts. MEASUREMENTS: Right Value Units Rt Inflow Artery 180 cm/s Rt Proximal Anastomosis 104 cm/s Rt Proximal Graft 46 cm/s Rt Mid Graft 55 cm/s Rt Distal Graft 464 cm/s Rt Distal Anastomosis 69 cm/s Rt Outflow Artery 43 cm/s Right Value Units FINDINGS: Performing Hide Measuring Machine Operator: Shelia Jameson RVT. Right Leg: The inflow EIA/DATABASE REPORTING CONSULTANT stent waveform is multiphasic. The proximal anastomosis(stented) waveform is multiphasic. There is presence arterial flow outside the thedistal stent dickinson (diameter 0.26cm, length of flow channel 1.5cm, peak occkjoos71wz/s) and may be due to incomplete aposition to arterial wall. No evidence ofpseudoaneurysm. The proximal graft waveform is multiphasic. The mid graft waveform is multiphasic.Systolic velocity ratio at the distal graft (just above knee) is 6.3 which is consistentwith a >50% stenosis. The distal anastomosis waveform is multiphasic. The outflowwaveform is multiphasic. Provider Notification: Results called on the above date to Madelyn Vicente MD(via WILBERTO Bolton). Timeof call 10:18am. Patient sent to clinic for follow up appointment. CONCLUSIONS: 1. Patent right lower extremity bypass graft with a >50% stenosis at thedistal graft level. 2. Small channel of persistent arterial flow detected outside the distalstent wall and mayb be consistent with possible stent malapposition - no evidence ofpseudoaneurysm. HISTORY: 12-19-2024 right leg angiogram - above knee stenosis 12-16-2024 femoral embolectomy/thrombectomy, BPG thrombectomy, right legangioplasty 10-16-2024 right leg angiogram, right leg angioplasty 07-22-2024 right BPG thrombectomy 07-01-2024 right femoral-popliteal BPG Lower limb ischemia, CKD, DVT, HTN, PAD, PVD. - PREVIOUS STUDIES: Previous study on 01/02/25, Patent right lower extremity bypass graft witha >75% stenosis at the distal graft level and patent DATABASE REPORTING CONSULTANT stent - DISCLAIMER: The study images and the [...] above. Electronically Signed By: Willy Medellin MD [facility] 04/10/2025 2:34:12 PM CDT [facility] Cindy Vicente MD PhD IMG US PROCEDURES Kelsea l Result * US Arterial Doppler Lower Extremity Bilateral (04/09/2025 10:54 AM CDT) Anatomical Region Laterality Modality Vascular Bilateral Ultrasound 04/09/2025 9:54 AM CDT Narrative 04/10/2025 2:18 PM CDT [facility] - Department of Vascular Surgery, Vascular Laboratory [address] [place] [address] Lower Extremity Arterial Doppler Report Patient Name: JEFFERY HAMILTON : 1970 Study Date: 04/09/2025 9:54:00 AM Gender: F Tech: Shelia Jameson T Location: [facility] Ref Provider: MADELYN VICENTE Quality: Adequate Order Provider: MADELYN VICENTE PROCEDURES: Arterial Report: Bilateral lower extremity arterial Doppler exam at rest. INDICATIONS: Encounter for Surgical Aftercare Following Surgery on the Circulatory System; Presence of Vascular Implants and Grafts Dx: Encounter for surgical aftercare following surgery on the circulatory system [Z48.812 (ICD-10-CM)]; Presence of other vascular implants and grafts [Z95.828 (ICD- Z48.812 Encounter for surgical aftercare following surgery on the circulatory system, and Z95.828 Presence of other vascular implants and grafts. MEASUREMENTS: Right Value Units Left Value Units Rt Brachial Pressure 164 mmHg Lt Brachial Pressure 164 mmHg Rt PICKLING TANK OPERATOR Pressure 144 mmHg Lt PICKLING TANK OPERATOR Pressure 131 mmHg Rt DPA Pressure 134 mmHg Lt DPA Pressure 129 mmHg Rt 1st Digit Pressure 98 mmHg Lt 1st Digit Pressure 103 mmHg Rt PT KAROLYN Resting 0.88 Lt PT KAROLYN Resting 0.8 Rt AT KAROLYN Resting 0.82 Lt AT KAROLYN Resting 0.79 Rt Digit/Arm Index 0.6 Lt Digit/Arm Index 0.63 Right Value Units Left Value Units FINDINGS: Performing Hide Measuring Machine Operator: Shelia Jameson RVT. Right Common Femoral Artery Analysis: The common femoral artery waveform is multiphasic. Right Popliteal Artery Analysis: Popliteal artery waveform is not assessed due to h/o bypass graft. Right Posterior Tibial Artery Analysis: The posterior tibial artery waveform is barely biphasic with preserved sharp upstroke. Right Anterior Tibial Artery Analysis: The anterior tibial artery waveform is barely biphasic versus monophasic with sharp upstroke. Left Common Femoral Artery Analysis: The common femoral artery waveform is multiphasic. Left Popliteal Artery Analysis: The popliteal artery waveform is monophasic with preserved sharp upstroke. Left Posterior Tibial Artery Analysis: The posterior tibial artery waveform is monophasic with preserved sharp upstroke. Left Anterior Tibial Artery Analysis: The anterior tibial waveform is monophasic. CONCLUSIONS: 1. The above listed Ankle/Brachial Indicies at rest are consistent with moderate peripheral arterial disease - claudication, bilaterally (for reference, claudication range is 0.50 -0.89). 2. Bilateral Digit/Arm Indices are within normal limits (for reference, normal CORINA is >0.6). 3. There is evidence of right leg arterial insufficiency at the level of infrapopliteal arteries. 4. There is evidence of left leg arterial insufficiency at the level of femoral-popliteal arteries and anterior tibial artery. HISTORY: 12-19-2024 right leg angiogram - above knee stenosis 12-16-2024 femoral embolectomy/thrombectomy, BPG thrombectomy, right leg angioplasty 10-16-2024 right leg angiogram, right leg angioplasty 07-22-2024 right BPG thrombectomy 07-01-2024 right femoral-popliteal BPG Lower limb ischemia, CKD, DVT, HTN, PAD, PVD. - PREVIOUS STUDIES: Previous study on 01/02/25 R KAROLYN 0.88 L KAROLYN 0.77. DISCLAIMER: The study images and the final [...] Electronically Signed By: Willy Medellin MD FACS 04/10/2025 1:03:13 PM CDT Procedure Note Willy Medellin MD - 04/10/2025 [facility] - Department of Vascular Surgery,Vascular Laboratory [address] [place] [address] Lower Extremity Arterial Doppler Report Patient Name: JEFFERY HAMILTON : 1970 Study Date: 04/09/2025 9:54:00 AM Gender: F Tech: Gisell Shelia GARCIA Location: [facility] [place] Provider: MADELYN VICENTE Quality: Adequate Order Provider: MADELYN VICENTE PROCEDURES: Arterial Report: Bilateral lower extremity arterial Doppler exam at rest. INDICATIONS: Encounter for Surgical Aftercare Following Surgery on the CirculatorySystem; Presence of Vascular Implants and Grafts Dx: Encounter for surgical aftercare following surgery on the circulatorysystem [Z48.812 (ICD-10-CM)]; Presence of other vascular implants and grafts [Z95.828(ICD- Z48.812 Encounter for surgical aftercare following surgery on thecirculatory system, and Z95.828 Presence of other vascular implants and grafts. MEASUREMENTS: Right Value Units Left Value Units Rt Brachial Pressure 164 mmHg Lt Brachial Pressure 164 mmHg Rt PICKLING TANK OPERATOR Pressure 144 mmHg Lt PICKLING TANK OPERATOR Pressure 131 mmHg Rt DPA Pressure 134 mmHg Lt DPA Pressure 129 mmHg Rt 1st Digit Pressure 98 mmHg Lt 1st Digit Pressure 103 mmHg Rt PT KAROLYN Resting 0.88 Lt PT KAROLYN Resting 0.8 Rt AT KAROLYN Resting 0.82 Lt AT KAROLYN Resting 0.79 Rt Digit/Arm Index 0.6 Lt Digit/Arm Index 0.63 Right Value Units Left Value Units FINDINGS: Performing Hide Measuring Machine Operator: Shelia Jameson RVT. Right Common Femoral Artery Analysis: The common femoral artery waveform is multiphasic. Right Popliteal Artery Analysis: Popliteal artery waveform is not assessed due to h/o bypass graft. Right Posterior Tibial Artery Analysis: The posterior tibial artery waveform is barely biphasic with preservedsharp upstroke. Right Anterior Tibial Artery Analysis: The anterior tibial artery waveform is barely biphasic versus monophasicwith sharp upstroke. Left Common Femoral Artery Analysis: The common femoral artery waveform is multiphasic. Left Popliteal Artery Analysis: The popliteal artery waveform is monophasic with preserved sharpupstroke. Left Posterior Tibial Artery Analysis: The posterior tibial artery waveform is monophasic with preserved sharpupstroke. Left Anterior Tibial Artery Analysis: The anterior tibial waveform is monophasic. CONCLUSIONS: 1. The above listed Ankle/Brachial Indicies at rest are consistent withmoderate peripheral arterial disease - claudication, bilaterally (for reference,claudication range is 0.50 -0.89). 2. Bilateral Digit/Arm Indices are within normal limits (for reference,normal CORINA is >0.6). 3. There is evidence of right leg arterial insufficiency at the level ofinfrapopliteal arteries. 4. There is evidence of left leg arterial insufficiency at the level offemoral-popliteal arteries and anterior tibial artery. HISTORY: 12-19-2024 right leg angiogram - above knee stenosis 12-16-2024 femoral embolectomy/thrombectomy, BPG thrombectomy, right legangioplasty 10-16-2024 right leg angiogram, right leg angioplasty 07-22-2024 right BPG thrombectomy 07-01-2024 right femoral-popliteal BPG Lower limb ischemia, CKD, DVT, HTN, PAD, PVD. - PREVIOUS STUDIES: Previous study on 01/02/25 R KAROLYN 0.88 L KAROLYN 0.77. DISCLAIMER: The study images and the final [...] above. Electronically Signed By: Willy Medellin MD [facility] 04/10/2025 1:03:13 PM CDT us Madelyn Vicente MD PhD IMG US PROCEDURES Kelsea l Result from Last 3 Months Additional Health Concerns Infection Onset Date Last Indicated MDR gram neg/ESBL 07/23/2024 08/01/2024 Insurance [facility] MEDIC[facility] Address: [address] [address] [place] [address] [facility]IC[facility] MEDICARE [facility] Address: [address] [address] [place] [address] Advance Directives For more information, please contact: [phone] * Full Code (Latest Code Status on [...] 11:02 AM 07/03/2024 11:02 AM Care Teams Primer Inspector Relationship Specialty Start Date End Date Mor Blancas MD [address] [place] [address] PCP - General Emergency Medicine 03/25/24 Flynn Ma MD [address] [facility] [address] [place] [address] Medical Oncologist/Pad Extraction Tender Medical Oncology 09/28/18 Colleen Diaz MD [facility] [place] [address] Referring Physician Nephrology 03/24/22 Derek Wilson MD 2015 [place] [address] Referring Physician Obstetrics and Gynecology 06/26/23 Mar Jay MD [address] [place] [address] Surgeon Vascular Surgery 08/24/23 Mitch Austin DO [address] [facility] [address] [place] [address] Surgeon Surgery 09/26/23 Madelyn Vicente MD PhD [address] [facility] [address] [place] [address] Registered Nurse Vascular Surgery 07/05/24 Eric Washington MD [address] [place] [address] Consulting Physician Plastic Surgery 07/29/24
--- OUTSIDE RECORDS SUMMARY | 2025-04-22 16:46 | XMS_ITS | Clinical Summary ---
Author Organization [facility] Address [address] [place] [address] Care Team Providers Care Director Sales Support Name Role Phone Flynn Ma MD Unavailable [phone] Colleen Diaz MD Unavailable Derek Wilson MD Unavailable [phone] Mar Jay MD Unavailable Mitch Austin DO Unavailable [phone] Mor Blancas MD Primary Care Provide r Madelyn Vicente MD PhD Unavailable [phone] Eric Washington MD Unavailable [phone] Allergies Active Allergy Reactions Criticality Noted Date [...] Discontinued cephalexin (KEFLEX) 500 mg capsule 03/05/20 025 Discontinued Active Problems Problem Noted Date [...] underwent emergent OR s/p thrombectomy of R SECURITIES AND REAL ESTATE DIRECTOR, bypass graft, below knee popliteal. R groin [...] 07/02/2024 Assessment & Plan (10/16/2024 2:41 PM ENGRAVER OPTICAL FRAMES): Has chronic abdominal pain due to likely [...] ordered Assessment & Plan (10/16/2024 2:42 PM ENGRAVER OPTICAL FRAMES): Hx RLE arterial occlusion/DVT 07/2023; h/o splenic [...] 07/01/2024 Assessment & Plan (10/16/2024 2:40 PM ENGRAVER OPTICAL FRAMES): Patient with previous right lower extremity bypass [...] 07/22: emergent OR s/p thrombectomy of R SECURITIES AND REAL ESTATE DIRECTOR, bypass graft, below knee popliteal. R groin [...] 06/26/2023. Held Plavix/Eliquis due to bleeding. - Improvement Manager consult on 08/08 - Hold home [...] 2016, in remission April 2023. Follows with [facility]. Resolved Problems Problem Noted Date Diagnosed Date Resolved Date Urinary tract infection 08/07/2023 06/0 12/2023 Overview (08/07/2023): Recently hospitalized at [facility] for pyelonephritis. Discharged on Keflex (08/01-08/10). - Continue cephalexin 500 mg BID. Assessment & Plan (08/07/2023 10:53 PM CDT): Recently hospitalized at [facility] for pyelonephritis. Discharged on Keflex (08/01-08/10). - Continue cephalexin 500 mg BID. Flu vaccine need 09/07/2022 08/07/2023 Dehydration 06/27/2022 08/07/2023 Immunocompromised 05/18/2022 08/07/2023 Encounters Date Type Department Care Team Description 04/09/2025 10:30 AM CDT Office Visit [facility] Surgery [address] [facility] 8th [place] [address] [place] [address] Madelyn Vicente MD PhD PAD (peripheral artery disease) (Primary Dx) 04/09/2025 9:30 AM CDT Ancillary Procedure [facility] Vascular Lab at the [facility] [address] [facility] 8th [place] [address] [place] [id number] Encounter for surgical aftercare following surgery on the circulatory system; Presence of other vascular implants and grafts 04/09/2025 Telephone [facility] Hematology [address] [facility] [address] [place] [address] Stephani Robertson 03/31/2025 Telephone [facility]) - [facility] Minimally Invasive Surgery [address] [facility] 12th Floor, [place] [address] Sheryl To, RMA 03/28/2025 Telephone [facility] ([facility]) - [facility] Minimally Invasive Surgery [address] [facility] 12th Floor, [place] [address] Sheryl To, RMA 03/25/2025 Orders Only [facility] ([facility]) - [facility] Minimally Invasive Surgery [address] [facility] 12th Floor, [place] [address] Sheryl To, RMA 03/04/2025 Orders Only [facility] Hematology [address] [facility] Floor [address] [place] [phone] Stephani Robertson Acute lower limb ischemia (Primary Dx) 01/30/2025 Telephone [facility] Pre Anesthesia Testing [address] [place] [address] Karen Delarosa from Last 3 Months Immunizations Immunization Administration [...] femoral artery; Surgeon: Claude Garza MD; Location: [facility] OR POD 3; Service: Vascular; Laterality: Right; [...] Recorded In the past 12 months has [employer], gas, oil, or water company threatened to [...] often do you attend chur ch or hoahaoism services? Never 12/16/2024 Do you belong to any clubs o r organizations such as adventist groups, unions, fraternal or athletic groups, or [...] any time in the past 12 m [facility], were you homeless or living in a custodial (including now)? No 12/16/2024 Personal Safety Answer Date Recorded Have you ever been in or are you currently in a harmful physical or emotional relationship or is someone making you feel afraid or unsafe? Denies 12/19/2024 Comments No Sex and Gender Information Value Date Recorded Sex Assigned at Not on file 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 ENGRAVER OPTICAL FRAMES Gender Identity Female 03/14/2022 6:19 PM CDT [...] 04/09/2025 10:35 AM CDT Plan of Treatment Health Maintenance Due Date Last Done Comments Breast Cancer Screening-Mammogram 1972 Colon Cancer Screening-Colonoscopy 1972 Hepatitis C Screening 1972 DTaP/Tdap/Td Vaccine (1 - Tdap) 1983 Hepatitis B Screening 1990 Regular Well Visit/Exam 18-64 1990 Pneumococcal vaccine <65 (1 of 2 - PCV) 1991 Zoster Vaccine (1 of 2) 1991 Lung Cancer Screening 2022 Influenza Vaccine (#1) 2025 09/07/2022 Depression Screening 12/13/2025 12/13/2024, 07/22/2024, 07/15/2024 Medical Devices Implanted Type Area Hand Edge Bander Device Identifier Shelf Expiration Date Model / Serial / Lot [employer] Riki Patch Vascuguard 0.88cm [id number] - [id number] Implanted:Qty : 1 on 07/01/2024 by Madelyn Vicente MD PhD at [facility] Other - see comments Right: Common Femoral Artery [employer] Riki [id number] 10/02/2025 [id number] / / [id number]- [id number] [employer] Riki Stent Peripheral [id number] m 6fr Self-Expandin g Blue Strl [id number] 30 - S00 - [id number] Implanted:Qty : 1 on 12/16/2024 by Claude Garza MD at [facility] Stent Right: Femoral [employer] Riki [id number] 05/20/2029 [id number] / 00 / [id number] [employer] Riki Stent Peripheral [id number] m 6fr Self-Expandin g Blue Strl [id number] 30 - S00 - [id number] Implanted:Qty : 1 on 12/16/2024 by Claude Garza MD at [facility] Stent Right: Femoral [employer] Riki [id number] 05/20/2029 [id number] / 00 / [id number] [employer] System Closure Repair Femoral Artery Suture Mediated Perclose Prostyle 94069-55 - [id number] Implanted:Qty : 1 on 12/16/2024 by Claude Garza MD at [facility] Vascular Closure Device Left: Groin [employer] [id number] 08/08/2026 [id number] / / [id number] [employer] System Closure Repair Femoral Artery Suture Mediated Perclose Prostyle 42092-12 - [id number] Implanted:Qty : 1 on 12/16/2024 by Claude Garza MD at [facility] Vascular Closure Device Left: Groin [employer] [id number] 02/05/2025 37690-30 / / [id number] [employer] Restrata Mini Matrix 100mg Micronized Powder Rmini-100 - [id number] Implanted:Qty : 1 on 07/16/2024 by Madelyn Vicente MD PhD at [facility] Right: Groin [employer] 07/11/2025 RMINI-10 0 / / [id number] [employer] Riki Patch Vascuguard 0.88cm [id number] - [id number] - [id number] Implanted:Qty : 1 on 07/22/2024 by Madelyn Vicnete MD PhD at [facility] Right: Knee [employer] Riki [id number] 02/19/2026 [id number] / [id number]- [id number] / [id number]- [id number] [employer] System Closure Repair Femoral Artery Suture Mediated Perclose Prostyle 57802-38 - [id number] Implanted:Qty : 1 on 12/19/2024 by Claude Garza MD at [facility] Right: Groin [employer] [id number] 03/08/2026 78386-28 / / [id number] Procedures Procedure Name Priority Date/Time Associated Diagnosis [...] AM CDT Narrative 04/10/2025 2:34 PM CDT [facility] - Department of Vascular Surgery, Vascular Laboratory [address] [place] [address] Lower Extremity Arterial Duplex - Bypass Graft Report Patient Name: JEFFERY HAMILTON : 1970 Study Date: 04/09/2025 9:25:37 AM Gender: F Tech: Location: [facility] Ref Provider: MADELYN VICENTE Quality: Adequate Order [...] 43 cm/s Right Value Units FINDINGS: Performing Pleater Hand: Shelia Jameson RVT. Right Leg: The inflow EIA/SECURITIES AND REAL ESTATE DIRECTOR stent waveform is multiphasic. The proximal anastomosis [...] at the distal graft level and patent SECURITIES AND REAL ESTATE DIRECTOR stent - DISCLAIMER: The study images and [...] Procedure Note Willy Medellin MD - 04/10/2025 [facility] - Department of Vascular Surgery,Vascular Laboratory [address] [place] [address] Lower Extremity Arterial Duplex - Bypass Graft Report Patient Name: JEFFERY HAMILTON : 1970 Study Date: 04/09/2025 9:25:37 AM Gender: F Tech: Location: [facility] Provider: MADELYN VICENTE Quality: Adequate Order Provider: [...] 43 cm/s Right Value Units FINDINGS: Performing Pleater Hand: Shelia Jameson RVT. Right Leg: The inflow EIA/SECURITIES AND REAL ESTATE DIRECTOR stent waveform is multiphasic. The proximal anastomosis(stented) waveform is multiphasic. There is presence arterial flow outside the thedistal stent dickinson (diameter 0.26cm, length of flow channel 1.5cm, peak [id number]) and may be due to incomplete aposition [...] at the distal graft level and patent SECURITIES AND REAL ESTATE DIRECTOR stent - DISCLAIMER: The study images and [...] above. Electronically Signed By: Willy Medellin MD [facility] 04/10/2025 2:34:12 PM CDT [facility] Cindy Vicente MD PhD IMG US PROCEDURES Kelsea l Result * US Arterial Doppler Lower Extremity Bilateral (04/09/2025 10:54 AM CDT) Anatomical Region Laterality Modality Vascular Bilateral Ultrasound 04/09/2025 9:54 AM CDT Narrative 04/10/2025 2:18 PM CDT [facility] - Department of Vascular Surgery, Vascular Laboratory [address] [place] [address] Lower Extremity Arterial Doppler Report Patient Name: JEFFERY HAMILTON : 1970 Study Date: 04/09/2025 9:54:00 AM Gender: F Tech: Shelia Jameson RVT Location: [facility] Provider: MADELYN VICENTE Quality: Adequate Order Provider: [...] mmHg Lt Brachial Pressure 164 mmHg Rt DENTAL TECHNOLOGY ADVISOR Pressure 144 mmHg Lt DENTAL TECHNOLOGY ADVISOR Pressure 131 mmHg Rt DPA Pressure 134 mmHg Lt DPA Pressure 129 mmHg Rt 1st Digit Pressure 98 mmHg Lt 1st Digit Pressure 103 mmHg Rt PT KAROLYN Resting 0.88 Lt PT KAROLYN Resting 0.8 Rt AT KAROLYN Resting 0.82 Lt AT KAROLYN Resting 0.79 Rt Digit/Arm Index 0.6 Lt Digit/Arm Index 0.63 Right Value Units Left Value Units FINDINGS: Performing Pleater Hand: Shelia Jameson RVT. Right Common Femoral Artery [...] Procedure Note Willy Medellin MD - 04/10/2025 [facility] - Department of Vascular Surgery,Vascular Laboratory [address] [place] [address] Lower Extremity Arterial Doppler Report Patient Name: JEFFERY HAMILTON : 1970 Study Date: 04/09/2025 9:54:00 AM Gender: F Tech: Shelia Jameson RVT Location: [facility] Provider: MADELYN VICENTE Quality: Adequate Order Provider: [...] mmHg Lt Brachial Pressure 164 mmHg Rt DENTAL TECHNOLOGY ADVISOR Pressure 144 mmHg Lt DENTAL TECHNOLOGY ADVISOR Pressure 131 mmHg Rt DPA Pressure 134 mmHg Lt DPA Pressure 129 mmHg Rt 1st Digit Pressure 98 mmHg Lt 1st Digit Pressure 103 mmHg Rt PT KAROLYN Resting 0.88 Lt PT KAROLYN Resting 0.8 Rt AT KAROLYN Resting 0.82 Lt AT KAROLYN Resting 0.79 Rt Digit/Arm Index 0.6 Lt Digit/Arm Index 0.63 Right Value Units Left Value Units FINDINGS: Performing Pleater Hand: Shelia Jameson RVT. Right Common Femoral Artery [...] above. Electronically Signed By: Willy Medellin MD [facility] 04/10/2025 1:03:13 PM CDT Madelyn Vicente MD PhD IMG US PROCEDURES Kelsea l Result from Last 3 Months Additional Health Concerns Infection Onset Date Last Indicated MDR gram neg/ESBL 07/23/2024 08/01/2024 Insurance [facility] MEDICARE ADVANTAGE [facility] MEDICARE [facility] MEDICARE ADVANTAGE Advance Directives For more information, please contact: [phone] * Full Code (Latest Code Status on [...] 11:02 AM 07/03/2024 11:02 AM Care Teams Director Sales Support Relationship Specialty Start Date End Date Mor Blancas MD [address] [place] [address] PCP - General Emergency Medicine 03/25/24 Flynn Ma MD [address] [facility] [address] [place] [address] Medical Oncologist/Signal Inspector Medical Oncology 09/28/18 Colleen Diaz MD [address] [place] [address] Referring Physician Nephrology 03/24/22 Derek Wilson MD [address] [place] [address] Referring Physician Obstetrics and Gynecology 06/26/23 Mar Jay MD [address] [place] [address] Surgeon Vascular Surgery 08/24/23 Mitch Austin DO [address] [place] [address] Surgeon Surgery 09/26/23 Madelyn Vicente MD PhD [address] [place] [address] Registered Nurse Vascular Surgery 07/05/24 Eric Washington MD [address] [place] [address] Consulting Physician Plastic Surgery 07/29/24
--- OUTSIDE RECORDS SUMMARY | 2025-04-22 16:46 | XMS_ITS | Encounter Summary ---
Author Organization [facility] Address [address] [place] [address] Phone Care Team Providers Care Self Pay Collector Name Role Phone Flynn Ma MD Unavailable [phone] Ari Elmore DO Primary Care Provider Colleen Diaz MD Unavailable Derek Wilson MD Unavailable [phone] Mar Jay MD Unavailable Mitch Austin DO Unavailable [phone] Mor Blancas MD Primary Care Provide r Madelyn Vicente MD PhD Unavailable [phone] Eric Washington MD Unavailable [phone] Encounter Details Date Type Department Care Team [...] file 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 DIRECTOR OF TRANSPORTATION Gender Identity Female 03/14/2022 6:19 PM CDT [...] documented as of this encounter Care Teams Self Pay Collector Relationship Specialty Start Date End Date rAi Elmore DO [address] [place] [address] PCP - General Family Medicine 12/16/20 03/24/24 Mor Blancas MD [address] [place] [address] PCP - General Emergency Medicine 03/25/24 Flynn Ma MD [address] [facility] [address] [place] [address] Medical Oncologist/Drug Enforcement Agent Medical Oncology 09/28/18 Colleen Diaz MD [address] [place] [address] Referring Physician Nephrology 03/24/22 Derek Wilson MD [address] [place] [address] Referring Physician Obstetrics and Gynecology 06/26/23 Mar Jay MD [address] [place] [address] Surgeon Vascular Surgery 08/24/23 Mitch Austin DO [address] [address] Surgeon Surgery 09/26/23 Madelyn Vicente MD PhD [address] [facility] [address] [place] [address] Registered Nurse Vascular Surgery 07/05/24 Eric Washington MD [address] [place] [address] Consulting Physician Plastic Surgery 07/29/24 documented as of this encounter
[2025-04-22 16:55] LABS: Add Urine Microscopic? YES; Appearance Urine Clear (Clear); Glucose Urine UA Negative (Negative); Leukocyte Esterase Ur Negative LEU/UL (Negative); Nitrate Urine Negative (Negative); Specific Grav Ur 1.025 (1.010-1.020)
== END 2025-04-22 16:44 | disposition home or self-care (01) ==
LOC: CHSLAB 16:44
PROVIDERS: PCP Emergency Medicine; Visit Provider Emergency Medicine
DX: N39.0 Urinary tract infection, site not specified (principal)
CPT/HCPCS: 81001

== ENCOUNTER 2025-05-08 09:55 | Outpatient (CLI) | payer MEDICARE, SELFPAY ==
--- OUTSIDE RECORDS SUMMARY | 2025-05-08 10:04 | XMS_ITS | Encounter Summary ---
Author Organization [facility] Healthcare Address [address] [place] [address] Care Team Providers Care Shoulder Joiner Name Role Phone Flynn Ma MD Unavailable [phone] Colleen Diaz MD Unavailable Derek Wilson MD Unavailable [phone] Mar Jay MD Unavailable [phone] Mitch Austin DO Unavailable [phone] Mor Blancas MD Primary Care Provide r Madelyn Vicente MD PhD Unavailable [phone] Eric Washington MD Unavailable [phone] Reason for Visit * Reason Comments OP Infusion * Episode Based Medications (Routine) - Authorized Specialty Diagnoses / Procedures Referred By Contac t Referred To Contact Diagnoses Iron deficiency anemia, unspecified iron deficiency anemia type Flynn Ma MD [address] [facility] [address] [place] [address] Phone: tel: fax: [address] [address] Phone: tel: fax: Referral ID Status Reason Start Date Expiration Date V isits Requested Visits Authorized [id number] Authorized 05/06/2025 10/09/2025 99 99 Encounter Details Date Type Department Care Team (Late st Contact Info) Description 05/07/2025 8:30 AM CDT Infusion [place] [address] [place] [address] Iron deficiency anemia, unspecified iron deficiency anemia type (Primary Dx) Social History Tobacco Use Types Packs/Day Years Used Date Smoking Tobacco: Former Cigarettes 1 37.5 1 987 - 04/08/2024 Passive Smoke Exposure: Past Smokeless Tobacco: Never Comments:cutting down 4-6 a day Alcohol Use Standard Drinks/Week Comments No 0 (1 standard drink = 0.6 oz pur e alcohol) [facility] Utilities Answer Date Recorded In the [...] often do you attend chur ch or lutheran services? Never 12/16/2024 Do you belong to [...] time in the past 12 m [facility], were you homeless or living in a long term (including now)? No 12/16/2024 Personal Safety Answer Date Recorded Have you ever been in or are you currently in a harmful physical or emotional relationship or is someone making you feel afraid or unsafe? Denies 12/19/2024 Comments No Sex and Gender Information Value Date Recorded Sex Assigned at Not on file 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 GROUP CHIEF OPERATOR Gender Identity Female 03/14/2022 6:19 PM CDT Sexual Orientation Not on file documented as of this encounter Last Filed Vital Signs Vital Sign Reading Time Taken Comments Blood Pressure 136/81 05/07/2025 11:10 AM CDT Pulse 55 05/07/2025 11:10 AM CDT Temperature 36.5 C (97.7 F) 05/07/2025 11:10 AM CDT Respiratory Rate 16 05/07/2025 11:1 0 AM CDT Oxygen Saturation 94% 05/07/2025 11: 10 AM CDT Inhaled Oxygen Concentration - - Weight 103.7 kg (228 lb 9.6 oz) 05/07/2025 8:40 AM CDT Height - - Body Mass Index 39.24 04/09/2025 10:35 AM CDT documented in this encounter Nursing Notes * Ani Gonzalez RN - 05/07/2025 8:30 AM CDT Education provided on the following medication: Infed Patient presents to the POD for first time Infed infusion. Printed information from [employer] provided and reviewed. Given drug information including indication for use, pre-medication, infusion time, and observation time. Discussed that with first time Infed a test dose would be administered after pre-medication. If test dose is tolerated well, the remainder of the medication can be given. Reviewed that vital signs would be monitored closely throughout treatment. Reviewed possible side effects: Stomach upset Generalized joint/muscle pain IV site irritation Headache Allergic reaction (potentially severe) Patient educated about symptoms of infusion reaction (including itching, hives, shortness of breath, back pain, chest pain, numbness, tingling, etc.) Patient instructed to inform nurse immediately if any symptoms present. Patient verbalized understanding. Handouts given. All questions answered and no further needs were stated. * Fang Pryro RN - 05/07/2025 8:30 AM CDT Oncology Nursing Note [facility] Nicole Hamilton is a 54 y.o. female who presents for treatment 1 of INFED Pre-treatment Nursing Assessment Nursing Assessment LOC: Alert, Awake Fatigue: Occassional Any falls since your last visit?: No Orientation: Oriented x4 Behavior: Calm Speech: Clear Language: No aphasia Vision: At baseline Peripheral Neuropathy: No Oral Mucosa Grade: Normal (0) Pt states has potential to be ?: No Shortness of Breath?: No Appetite: Fair (same, gastritis, this is being managed) Have You Recently Lost Weight Without Trying?: No Have you been eating poorly because of a decreased appetite?: No Malnutrition Screening Tool (MST) Score: 0 Nausea/Vomiting: No Diarrhea: No Constipation: No Skin Condition/Temp: Warm, Dry Swelling: No Additional Notes: Pt received INFED educational sheet but declined as she has had other irons in the past Encounter Vitals BP: 136/81 (05/07/2025 11:10 AM) Pulse: 55 (05/07/2025 11:10 AM) Resp: 16 (05/07/2025 11:10 AM) Temp: 36.5 ??C (97.7 ??F) (05/07/2025 11:10 AM) Temp src: Oral (05/07/2025 11:10 AM) SpO2: 94 % (05/07/2025 11:10 AM) Weight: 103.7 kg (228 lb 9.6 oz) (05/07/2025 8:40 AM) Treatment Patient: does not require labs today. Pre blood return: Lety Hamilton tolerated treatment well. Patient was frequently observed and monitored throughout the administration of their treatment. Post blood return: Brisk IV access post infusion: NS Patient Education Treatment Education: Information/teaching given to patient including process and procedure related to today's visit Response: Verbalizes understanding Discharge Plan Discharge instructions given to patient. Future appointments given and reviewed with treatment plan. Discharge Mode: Ambulatory Accompanied by: Self Discharged To: Home documented in this encounter Plan of Treatment Scheduled Procedures Name Priority Associated Diagnoses Date/Ti me COLONOSCOPY Open Access Iron deficiency anemia, unspecified iron deficiency anemia type ESOPHAGOGASTRODUODENOSCOPY Open Access Iron deficiency anemia, unspecified iron deficiency anemia type documented as of this encounter Visit Diagnoses Diagnosis Iron deficiency anemia, unspecified iron deficiency anemia type- Primary documented in this encounter Administered Medications Inactive Administered Medications - up to 3 most recent administrations Medication Order MAR Action Action Date Dose Rate Site iron dextran complex (INFED) 25 mg in sodium chloride 0.9% 50 mL IVPB 25 mg, intravenous, at 234 mL/hr, Administer over 15 Minutes, Once, On Mon05/07/25 at 1000, For 1 dose, TEST DOSE. Administer over 15 minutes. If no reaction to Test dose after 10 minutes of observation, give full dose.Indications:Iron deficiency anemia, unspecified iron deficiency anemia type New Bag 05/07/2025 9:19 AM CDT 25 mg 234 mL/hr iron dextran complex (INFED) 975 mg in sodium chloride 0.9% 500 mL IVPB 975 mg, intravenous, at 568 mL/hr, Administer over 60 Minutes, Once, On Mon05/07/25 at 1100, For 1 dose, If no reaction to Test dose after 10 minutes of observation, give full dose. Administer over 60 minutesIndications:Iron deficiency anemia, unspecified iron deficiency anemia type New Bag 05/07/2025 10:05 AM CDT 975 mg 568 mL/hr documented in this encounter Orders Nursing Count Last Ordered Date First Orde red Date ONCBCN NO PREMEDS NEEDED 1 05/07/2025 Appointment Requests Count Last Ordered Date Fi rst Ordered Date ONCBCN INFUSION APPT REQUEST 1 05/07/2025 documented in this encounter Additional Health Concerns Infection Onset Date Last Indicated Resolved Time MDR gram neg/ESBL 07/23/2024 08/01/2024 documented as of this encounter Care Teams Shoulder Joiner Relationship Specialty Start Date End Date Mor Blancas MD [address] [place] [address] PCP - General Emergency Medicine 03/25/24 Flynn Ma MD [address] [facility] [address] [place] [address] Medical Oncologist/Inspector Golf Ball Medical Oncology 09/28/18 Colleen Diaz MD [address] [place] [address] Referring Physician Nephrology 03/24/22 Derek Wilson MD [address] [place] [address] Referring Physician Obstetrics and Gynecology 06/26/23 Mar Jay MD [address] [place] [address] Surgeon Vascular Surgery 08/24/23 Mitch Austin DO [address] [place] [address] Surgeon Surgery 09/26/23 Madelyn Vicente MD PhD [address] [facility] [address] [place] [address] Registered Nurse Vascular Surgery 07/05/24 Eric Washington MD [address] [place] [address] Consulting Physician Plastic Surgery 07/29/24 documented as of this encounter
--- OUTSIDE RECORDS SUMMARY | 2025-05-08 10:04 | XMS_ITS | Encounter Summary ---
Author Organization [facility] Address [address] [place] [address] Phone Care Team Providers Care General Farm Manager Name Role Phone Flynn Ma MD Unavailable [phone] Ari Elmore DO Primary Care Provider Colleen Diaz MD Unavailable Derek Wilson MD Unavailable [phone] Mar Jay MD Unavailable [phone] Mitch Austin DO Unavailable [phone] Mor Blancas MD Primary Care Provide r Madelyn Vicente MD PhD Unavailable [phone] Eric Washington MD Unavailable [phone] Encounter Details Date Type Department Care Team [...] on file 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 Gender Identity Female 03/14/2022 6:19 PM CDT Sexual Orientation Not on file documented as of this encounter Plan of Treatment Scheduled Procedures Name Priority Associated Diagnoses Date/Ti me COLONOSCOPY Open Access Iron deficiency anemia, unspecified iron deficiency anemia type ESOPHAGOGASTRODUODENOSCOPY Open Access Iron deficiency anemia, unspecified iron deficiency anemia type documented as of this encounter Procedures Procedure [...] as of this encounter Care Teams General Farm Manager Relationship Specialty Start Date End Date Ari Elmore DO [address] [place] [address] PCP - General Family Medicine 12/16/20 03/24/24 Mor Blancas MD [address] [place] [address] PCP - General Emergency Medicine 03/25/24 Flynn Ma MD [address] [facility] [address] [place] [address] Medical Oncologist/Yard Warehouse Worker Medical Oncology 09/28/18 Colleen Diaz MD [address] [place], [place] [address] Referring Physician Nephrology 03/24/22 Derek Wilson MD [address] [place] [address] Referring Physician Obstetrics and Gynecology 06/26/23 Mar Jay MD [address] [place] [address] Surgeon Vascular Surgery 08/24/23 Mitch Austin DO [address] [place] [address] Surgeon Surgery 09/26/23 Madelyn Vicente MD PhD [address] [facility] [address] [place] [address] Registered Nurse Vascular Surgery 07/05/24 Eric Washington MD [address] [place] [address] Consulting Physician Plastic Surgery 07/29/24 documented as of this encounter
--- OUTSIDE RECORDS SUMMARY | 2025-05-08 10:04 | XMS_ITS | Encounter Summary ---
Author Organization [facility] Address [address] [place] [address] Phone Care Team Providers Care Manager Sales Support Name Role Phone Flynn Ma MD Unavailable [phone] Ari Elmore DO Primary Care Provider Colleen Diaz MD Unavailable Derek Wilson MD Unavailable [phone] Mar Jay MD Unavailable [phone] Mitch Austin DO Unavailable [phone] Mor Blancas MD Primary Care Provide r Madelyn Vicente MD PhD Unavailable [phone] Eric Washington MD Unavailable [phone] Encounter Details Date Type Department Care Team [...] on file 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 EDITOR Gender Identity Female 03/14/2022 6:19 PM CDT [...] as of this encounter Care Teams Manager Sales Support Relationship Specialty Start Date End Date Ari Elmore DO [address] [place] [address] PCP - General Family Medicine 12/16/20 03/24/24 Mor Blancas MD [address] [place] [address] PCP - General Emergency Medicine 03/25/24 Flynn Ma MD [address] [facility] [address] [place] [address] Medical Oncologist/Telegraph Equipment Maintainer Medical Oncology 09/28/18 Colleen Diaz MD [address] [place], [place] [address] Referring Physician Nephrology 03/24/22 Derek Wilson MD [address] [place] [address] Referring Physician Obstetrics and Gynecology 06/26/23 Mar Jay MD [address] [place] [address] Surgeon Vascular Surgery 08/24/23 Mitch Austin DO [address] [place] [address] Surgeon Surgery 09/26/23 Madelyn Vicente MD PhD [address] [facility] [address] [place] [address] Registered Nurse Vascular Surgery 07/05/24 Eric Washington MD [address] [place] [address] Consulting Physician Plastic Surgery 07/29/24 documented as of this encounter
--- OUTSIDE RECORDS SUMMARY | 2025-05-08 10:05 | XMS_ITS ---
Author Organization [facility] Address [address] [place] [address] Care Team Providers Care Early Childhood Aide Classroom Name Role Phone Flynn Ma MD Unavailable [phone] Colleen Diaz MD Unavailable Derek Wilson MD Unavailable [phone] Mar Jay MD Unavailable [phone] Mitch Austin DO Unavailable [phone] Mor Blancas MD Primary Care Provide r Madelyn Vicente MD PhD Unavailable [phone] Eric Washington MD Unavailable [phone] Active Problems Problem Noted Date Diagnosed Date [...] underwent emergent OR s/p thrombectomy of R REHABILITATION DIRECTOR, bypass graft, below knee popliteal. 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 R [...] lateral thigh PRS: Prolene sutures. 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 Wound vac to thigh replaced Assessment [...] 06/26/2023. Held Plavix/Eliquis due to bleeding. 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 Follows with [facility]. Current Treatment and Therapy Plans No current plan information found. Other Current Plans iron dextran (INFED) infusion* Plan Start Date:05/07/2025 Plan Provider:Flynn Ma MD Linked Problems Iron [...] 06/0 12/2023 Overview (08/07/2023): Recently hospitalized at [place] for pyelonephritis. Discharged on Keflex (08/01-08/10). - Continue cephalexin 500 mg BID. Assessment & Plan (08/07/2023 10:53 PM CDT): Recently hospitalized at [place] for pyelonephritis. Discharged on Keflex (08/01-08/10). - Continue cephalexin 500 mg BID. Flu vaccine need 09/07/2022 08/07/2023 Dehydration 06/27/2022 08/07/2023 Immunocompromised 05/18/2022 08/07/2023
--- OUTSIDE RECORDS SUMMARY | 2025-05-08 10:05 | XMS_ITS | Clinical Summary ---
Author Organization [facility] Address [address] [place] [address] Care Team Providers Care Snap Shearer Name Role Phone Flynn Ma MD Unavailable [phone] Colleen Diaz MD Unavailable Derek Wilson MD Unavailable [phone] Mar Jay MD Unavailable Mitch Austin DO Unavailable [phone] Mor Blancas MD Primary Care Provide r Madelyn Vicente MD PhD Unavailable [phone] Eric Washington MD Unavailable [phone] Allergies Active Allergy Reactions Criticality Noted Date [...] Active pantoprazole DR (PROTONIX) 40 mg EC tabletIndications :Treatment of Non-Bleeding Gastric Disorder Take 1 tablet (40 mg total) by mouth 2 (two) times a day 60 tablet 3 07/05/20 24 025 Active metoprolol XL (TOPROL-XL) 50 mg extended release tabletIndications :hypertension Take 1 tablet (50 mg total) by mouth every morning 08/16/20 24 Active ALPRAZolam (XANAX) 0.5 mg tabletIndications :anxiety Take 1 tablet (0.5 mg total) by mouth 3 (three) times a day as needed for anxiety 08/20/20 24 Active amLODIPine (NORVASC) 5 mg tabletIndications :hypertension Take 1 tablet (5 mg total) by mouth every morning 09/16/20 24 Active lisinopriL (PRINIVIL,ZESTRIL ) 40 mg tabletIndications :hypertension Take 1 tablet (40 mg total) by mouth 2 (two) times a day 09/16/20 24 Active atorvastatin (LIPITOR) 20 mg tabletIndications :hyperlipidemia Take 1 tablet (20 mg total) by mouth 2 (two) times a day 12/20/19 25 Active clopidogreL (PLAVIX) 75 mg tablet Take 1 tablet (75 mg total) by mouth daily 12/22/19 25 Active apixaban (ELIQUIS) 5 mg tabletIndications :Chronic lymphoid leukemia, without mention of having achieved remission(204.10) (HCC) Take 1 tablet (5 mg total) by mouth 2 (two) times a day 180 tablet 3 04/28/20 25 026 Active apixaban (ELIQUIS) 5 mg tablet Take 1 tablet (5 mg total) by mouth 2 (two) times a day 025 Discontinued(R eorder) acetaminophen 500 mg capsule Take 2 capsules (1,000 mg total) by mouth every 6 (six) hours 12/20/19 25 025 Discontinued azelastine (ASTELIN) 137 mcg (0.1 %) nasal spray 02/04/20 25 025 Discontinued cephalexin (KEFLEX) 500 mg capsule 03/05/20 25 025 Discontinued eszopiclone (LUNESTA) 1 mg tablet 04/ 025 Discontinued fluticasone propionate (FLONASE) 50 mcg/actuation nasal spray SPRAY 1 SPRAY IN EACH NOSTRIL TWICE DAILY 01/22/20 025 Discontinued methylPREDNISolon e (MEDROL DOSEPACK) 4 mg Dosepack 02/04/20 025 Discontinued predniSONE (DELTASONE) 20 mg tablet 03/05/20 025 Discontinued amoxicillin-clavu lanate (AUGMENTIN) 875-125 mg per tablet 03/12/20 025 Discontinued Active Problems Problem Noted Date [...] underwent emergent OR s/p thrombectomy of R WEB MARKETING STRATEGIST, bypass graft, below knee popliteal. R groin [...] 07/02/2024 Assessment & Plan (10/16/2024 2:41 PM CRIMINOLOGY PROFESSOR): Has chronic abdominal pain due to likely [...] ordered Assessment & Plan (10/16/2024 2:42 PM CRIMINOLOGY PROFESSOR): Hx RLE arterial occlusion/DVT 07/2023; h/o splenic [...] 07/01/2024 Assessment & Plan (10/16/2024 2:40 PM CRIMINOLOGY PROFESSOR): Patient with previous right lower extremity bypass [...] 07/22: emergent OR s/p thrombectomy of R WEB MARKETING STRATEGIST, bypass graft, below knee popliteal. R groin [...] 06/26/2023. Held Plavix/Eliquis due to bleeding. - Book Store Associate consult on 08/08 - Hold home medication [...] Plan (07/16/2024 7:36 AM CDT): Diagnosed in 2017. S/p chemo, now in remission -cont OP monitoring Assessment & Plan (07/04/2024 8:29 AM CDT): Diagnosed in 2017. S/p chemo, now in remission -F/U outpatient Assessment & Plan (08/07/2023 9:22 PM CDT): Diagnosed in 2017, in remission April 2023. Follows with [facility]. Resolved Problems Problem Noted Date Diagnosed Date Resolved Date Urinary tract infection 08/07/2023 06/0 12/2023 Overview (08/07/2023): Recently hospitalized at [facility] for pyelonephritis. Discharged on Keflex (08/01-08/10). - Continue cephalexin 500 mg BID. Assessment & Plan (08/07/2023 10:53 PM CDT): Recently hospitalized at [facility] for pyelonephritis. Discharged on Keflex (08/01-08/10). - Continue cephalexin 500 mg BID. Flu vaccine need 09/07/2022 08/07/2023 Dehydration 06/27/2022 08/07/2023 Immunocompromised 05/18/2022 08/07/2023 Encounters Date Type Department Care Team Description 05/07/2025 8:30 AM CDT Infusion [facility] [address] [place] [phone] Iron deficiency anemia, unspecified iron deficiency anemia type (Primary Dx) 05/06/2025 Telephone [facility] Hematology [address] [facility] [address] [place] [address] Leonardo Linda 05/05/[address] [facility] Specialty Services [address] [place] [address] Gwen Gaston, RN 05/05/2025 Orders Only [facility] Oncology [address] [place] [phone] Flynn Ma MD Iron deficiency anemia, unspecified iron deficiency anemia type (Primary Dx) 04/29/2025 Orders Only [facility] Oncology [address] [facility] [facility] Floor [address] [place] [address] Mireya Briceno, WILBERTO Iron deficiency anemia, unspecified iron deficiency anemia type (Primary Dx) 04/29/2025 Orders Only [facility] Surgery [address] [facility] Floor 1 [place] [address] Madelyn Vicente MD PhD Occlusion of celiac artery (Primary Dx); Encounter for surgical aftercare following surgery on the circulatory system 04/28/2025 11:15 AM CDT Office Visit [facility] Oncology [address] [place] [phone] Flynn Ma MD Chronic lymphoid leukemia, without mention of having achieved remission(204.10) (HCC) (Primary Dx) 04/28/2025 10:45 AM CDT Lab [facility] [address] [place] [address] Chronic lymphoid leukemia, without mention of having achieved remission(204.10) (HCC); Iron deficiency anemia, unspecified iron deficiency anemia type 04/09/2025 10:30 AM CDT Office Visit [facility] Surgery [address] [facility] 8th [place] [address] [place] [phone] Madelyn Vicente MD PhD PAD (peripheral artery disease) (Primary Dx) 04/09/2025 9:30 AM CDT Ancillary Procedure [facility] Vascular Lab at the [facility] [address] [facility] [address]th [place] [address] [place] [phone] Encounter for surgical aftercare following surgery on the circulatory system; Presence of other vascular implants and grafts 04/09/2025 Telephone [facility] Hematology [facility] [facility] [address] [place] [phone] Stephani [place] 03/31/[address] [facility] Minimally Invasive Surgery [address] [facility] 12[address], [place] [address] Sheryl To, RMA 03/28/[address] [facility] Minimally Invasive Surgery [address] [facility] [address], [place] [address] Sheryl To, RMA 03/25/2025 Orders Only [place] Minimally Invasive Surgery [address] [facility] [address], [place] [address] Sheryl To, RMA 03/04/2025 Orders Only [facility] Hematology [facility] [facility] [address] [place] [phone] Stephani [place] Acute lower limb ischemia (Primary Dx) from [...] RLE angiogram; Surgeon: Claude Garza MD; Location: [facility] OR [...] drink = 0.6 oz pur e alcohol) [facility] Utilities Answer Date Recorded In the past 12 months has W[employer] gas, oil, or water [employer] threatened to shut off services in your [...] often do you attend chur ch or sikh services? Never 12/16/2024 Do you belong to any clubs o r organizations such as episcopalian groups, unions, fraternal or athletic groups, or [...] any time in the past 12 m [facility], were you homeless or living [...] on file 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 CRIMINOLOGY PROFESSOR Gender Identity Female 03/14/2022 6:19 PM CDT [...] 9.6 oz) 05/07/2025 8:40 AM CDT Height 162.6 cm (5' 4) 04/09/2025 10:3 5 AM CDT Body Mass Index 39.24 04/09/2025 10:35 AM CDT Plan of Treatment Scheduled Procedures Name Priority Associated Diagnoses Date/Ti me COLONOSCOPY Open Access Iron deficiency anemia, unspecified iron deficiency anemia type ESOPHAGOGASTRODUODENOSCOPY Open Access Iron deficiency anemia, unspecified iron deficiency anemia type Health Maintenance Due Date Last Done Comments [...] 07/22/2024, 07/15/2024 Medical Devices Implanted Type Area Investigation Officer Device Identifier Shelf Expiration Date Model / Serial / Lot [employer] Patch Vascuguard 0.88cm [id number] - [id number] Implanted:Qty : 1 on 07/01/2024 by Madelyn Vicente MD PhD at [facility] Other - see comments Right: Common Femoral Artery [employer]iki [id number] 10/02/2025 [id number] / / [id number] [employer] Stent Peripheral [id number] 6fr Self-Expandin g Blue Strl [id number] 30 - S00 - [id number] Implanted:Qty : 1 on 12/16/2024 by Claude Garza MD at [facility] Stent Right: Femoral [employer] Riki [id number] 05/20/2029 [id number] / 00 / [id number] [employer] Stent Peripheral [id number] m 6fr Self-Expandin g Blue Strl [id number] 30 - S00 - [id number] Implanted:Qty : 1 on 12/16/2024 by Claude Garza MD at [facility] Stent Right: Femoral [employer] Riki [id number] 05/20/2029 [id number] / 00 / [id number] [employer] System Closure Repair Femoral Artery Suture Mediated Perclose Prostyle 45406-05 - [id number] Implanted:Qty : 1 on 12/16/2024 by Claude Garza MD at [facility] Vascular Closure Device Left: Groin [employer] [id number] 08/08/2026 25963-20 / / [id number] [employer] System Closure Repair Femoral Artery Suture Mediated Perclose Prostyle 83054-62 - [id number] Implanted:Qty : 1 on 12/16/2024 by Claude Garza MD at [facility] Vascular Closure Device Left: Groin [employer] [id number] 02/05/2025 28915-21 / / [id number] [employer] Restrata Mini Matrix 100mg Micronized Powder Rmini-100 - [id number] Implanted:Qty : 1 on 07/16/2024 by Madelyn Vicente MD PhD at [facility] Right: Groin [employer] 07/11/2025 [id number] 0 / / [id number] [employer] Riki Patch Vascuguard 0.88cm [id number] - [id number] - [id number] Implanted:Qty : 1 on 07/22/2024 by Madelyn Vicente MD PhD at [facility] Right: Knee [employer] [id number] 02/19/2026 [id number] / [id number] / [id number] [employer] System Closure Repair Femoral Artery Suture Mediated Perclose Prostyle 15887-74 - [id number] Implanted:Qty : 1 on 12/19/2024 by Claude Garza MD at [facility] Right: Groin [employer] [id number] 03/08/2026 68798-24 / / [id number] Procedures Procedure Name Priority Date/Time Associated Diagnosis Comments EGFR Routine 04/28/2025 11:08 AM CDT Chronic lymphoid leukemia, without mention of having achieved remission(204.10) (HCC) DIFFERENTIAL AUTO Routine 04/28/2025 11: 08 AM CDT Chronic lymphoid leukemia, without mention of having achieved remission(204.10) (HCC) LACTATE DEHYDROGENASE Routine 04/28/2025 11:08 AM CDT Chronic lymphoid leukemia, without mention of having achieved remission(204.10) (HCC) COMPREHENSIVE METABOLIC PANEL Routine 04/28/2025 11:08 AM CDT Chronic lymphoid leukemia, without mention of having achieved remission(204.10) (HCC) CBC WITH AUTO DIFFERENTIAL Routine 04/28/2025 11:08 AM CDT Chronic lymphoid leukemia, without mention of having achieved remission(204.10) (HCC) BETA 2 MICROGLOBULIN SERUM Routine 04/28/2025 11:08 AM CDT Chronic lymphoid leukemia, without mention of having achieved remission(204.10) (HCC) FERRITIN Routine 04/28/2025 11:08 AM CDT Iron deficiency anemia, unspecified iron deficiency anemia type IRON PROFILE W/ IBC Routine 04/28/2025 1 1:08 AM CDT Iron deficiency anemia, unspecified iron deficiency anemia type US ARTERIAL DUPLEX LOWER EXTREMITY RIGHT [...] grafts from Last 3 Months Results * eGFR (04/28/2025 11:08 AM CDT) eGFR 68 >=60 mL/min/1. 73 m2 Comment: Interpretive Data [...] interpretive data was last reviewed 2021. Blood 04/28/2025 11:0 8 AM CDT 04/28/2025 11:08 AM CDT Kirsten Callawayeleonoratrudiallan V BELT COVERER LAB BLOOD ORDE PARAG Final Result [facility] [address] [facility] Department [place] [address] * (ABNORMAL) Differential, auto (04/28/2025 11:08 AM CDT) Neutrophil abs 6.84(H) 1.50 - 6.50 K/cumm Comment:Testing performed by : [address] [address] Imm gran abs 0.05 0.00 - 0.10 K/cumm [facility] Lymphocyte abs 3.35(H) 0.80 - 3.30 K/cumm [facility] Monocyte abs 0.71 0.20 - 0.80 K/cumm [facility] Eosinophil abs 0.26 0.00 - 0.50 K/cumm [facility] Basophil abs 0.10 0.00 - 0.10 K/cumm [facility] Neutrophil pct 60.5 % [facility] Comment: Interpretive Data Percent cell count reference ranges are not reported, since discordance with absolute values may lead to misinterpretation of CBC data. Current Interpretive Data was last revised on 2018. Imm gran pct 0.4 % [facility] Comment: Interpretive Data Percent cell count reference ranges are not reported, since discordance with absolute values may lead to misinterpretation of CBC data. Current Interpretive Data was last revised on 2018. Lymphocyte pct 29.6 % [facility] Comment: Interpretive Data Percent cell count reference ranges are not reported, since discordance with absolute values may lead to misinterpretation of CBC data. Current Interpretive Data was last revised on 2018. Monocyte pct 6.3 % [facility] Comment: Interpretive Data Percent cell count reference ranges are not reported, since discordance with absolute values may lead to misinterpretation of CBC data. Current Interpretive Data was last revised on 2018. Eosinophil pct 2.3 % [facility] Comment: Interpretive Data Percent cell count reference ranges are not reported, since discordance with absolute values may lead to misinterpretation of CBC data. Current Interpretive Data was last revised on 2018. Basophil pct 0.9 % [facility] Comment: Interpretive Data Percent cell count reference ranges are not reported, since discordance with absolute values may lead to misinterpretation of CBC data. Current Interpretive Data was last revised on 2018. Blood 04/28/2025 11:0 8 AM CDT 04/28/2025 11:08 AM CDT Kirsten Negrita Roa LAB BLOOD ORDE PARAG Final Result Performing Organization Address City/[facility]/ZIP Co de Phone Number [facility] [place] [address] * (ABNORMAL) Iron profile w/ IBC (04/28/2025 11:08 AM CDT) Iron 30(L) 35 - 145 mcg/dL TIBC 400 250 - 400 mcg/dL [facility] Transferrin saturation 8(L) 20 - 50 % [facility] Blood 04/28/2025 11:0 8 AM CDT 04/28/2025 2:21 PM CDT Kirsten Negrita Roa LAB BLOOD ORDE RABFRANSISCO Final Result [facility] Department [place] [address] * (ABNORMAL) CBC with auto differential (04/28/2025 11:08 AM CDT) WBC 11.31(H) 3.80 - 9.90 K/cumm Comment:Testing performed by : [address] [address] Hgb 10.7(L) 11.9 - 15.5 g/dL [facility] Comment:Testing performed by : [facility], [address] [place] [address] Hct 36.5 35.6 - 45.5 % [facility] Comment:Testing performed by : [facility], [address] [place] [address] Plt 341 150 - 400 K/cumm [facility] Comment:Testing performed by : [facility], [address] [place] [address] MPV 9.7 9.1 - 12.3 fL [facility] RBC 4.63 3.90 - 5.20 M/cumm [facility] MCV 78.8(L) 81.3 - 96.4 fL [facility] MCH 23.1(L) 27.1 - 33.3 pg [facility] MCHC 29.3(L) 32.3 - 35.7 g/dL [facility] RDW CV 21.9(H) 11.1 - 14.9 % [facility] RDW SD 61.6(H) 35.7 - 48.1 fL [facility] NRBC abs 0.00 0.00 - 0.01 K/cumm [facility] ANC Prelim 6.84(H) 1.50 - 6.50 K/cumm [facility] Comment: Interpretive Data The rapid ANC is a preliminary automated count and may vary from the final ANC (Neut Abs) reported in the WBC differential that follows. Current interpretive data was last revised 2024. Blood 04/28/2025 11:0 8 AM CDT 04/28/2025 11:08 AM CDT Kirsten Roa NP LAB BLOOD ORDDorie TUTTLE Final Result [facility] [address] [facility] [place] [address] * Lactate dehydrogenase (LD) (04/28/2025 11:08 AM CDT) Pathologist [facility] Lactate dehydrogenase (LDH) 223 100 - 250 Units/L Comment:Testing performed by : [facility], [address] [facility] [address] Blood 04/28/2025 11:0 8 AM CDT 04/28/2025 11:08 AM CDT Kirsten Negrita Callawaylspratibhat V BELT COVERER LAB BLOOD ORDE RABLES Final Result Performing Organization Address [facility] Co de Phone Number [facility] Department [place] [address] * Ferritin (04/28/2025 11:08 AM CDT) Pathologist [facility] Ferritin 14 13 - 150 ng/mL Blood 04/28/2025 11:0 8 AM CDT 04/28/2025 2:21 PM CDT Kirsten Negrita Sanchezselschtrudit V BELT COVERER LAB BLOOD ORDE RABLES Final Result Performing Organization Address [facility] [place] [address] * (ABNORMAL) Beta 2 microglobulin, serum (04/28/2025 11:08 AM CDT) Pathologist [facility] Beta 2 Microglobulin, Serum 3.60(H) 1.00 - 2.50 mg/L Comment: Interpretive Data The Jose Beta-2 microglobulin assay procedure was used. Results from different manufacturers or methods may not be comparable. Serial testing should be performed using the same method. Blood 04/28/2025 11:0 8 AM CDT 04/28/2025 2:21 PM CDT Kirsten Negrita Sanchezselschmidt V BELT COVERER LAB BLOOD ORDE RABLES Final Result Performing Organization Address [facility] [place] [address] * Comprehensive metabolic panel (04/28/2025 11:08 AM CDT) Sodium 145 135 - 145 mmol/L Comment:Testing performed by : [facility], [address] [place] [address] Potassium, pl 4.2 3.3 - 4.9 mmol/L [facility] Chloride 110 97 - 110 mmol/L [facility] CO2 28 22 - 32 mmol/L [facility] Anion gap 7 2 - 15 mmol/L [facility] BUN 17 6 - 25 mg/dL [facility] Creatinine 1.00 0.60 - 1.10 mg/dL [facility] Glucose 93 70 - 199 mg/dL [facility] Comment: Interpretive Data Fasting glucose [...] interpretive data was last revised 2022. Calcium 9.4 8.5 - 10.3 mg/dL [facility] Bilirubin, total 0.3 0.1 - 1.2 mg/dL [facility] Protein, pl 6.8 6.5 - 8.5 g/dL [facility] Albumin 3.8 3.5 - 5.0 g/dL [facility] Alk phos 121 40 - 130 Units/L [facility] ALT 12 7 - 45 Units/L [facility] AST 16 10 - 45 Units/L [facility] Blood 04/28/2025 11:0 8 AM CDT 04/28/2025 11:08 AM CDT Kirsten Roa NP LAB BLOOD ORDDorie TUTTLE Final Result [facility] [place] [address] * Arterial Duplex Lower Extremity Right Limited (04/09/2025 10:54 AM CDT) Anatomical Region Laterality Modality Vascular Right Ultrasound 04/09/2025 9:25 AM CDT Narrative 04/10/2025 2:34 PM CDT [facility] - Department of Vascular Surgery, Vascular Laboratory [address] [place] [address] Lower Extremity Arterial Duplex - Bypass Graft Report Patient Name: JEFFERY HAMILTON : 1970 Study Date: 04/09/2025 9:25:37 AM Gender: F Tech: ERIC Location: [facility] Provider: MADELYN VICENTE Quality: Adequate Order [...] 43 cm/s Right Value Units FINDINGS: Performing Field Coordinator: Shelia Jameson RVT. Right Leg: The inflow EIA/WEB MARKETING STRATEGIST stent waveform is multiphasic. The proximal anastomosis [...] at the distal graft level and patent WEB MARKETING STRATEGIST stent - DISCLAIMER: The study images and [...] Procedure Note Willy Medellin MD - 04/10/2025 [facility] - Department of Vascular Surgery,Vascular Laboratory [address] [place] [address] Lower Extremity Arterial Duplex - Bypass Graft Report Patient Name: JEFFERY HAMILTON : 1970 Study Date: 04/09/2025 9:25:37 AM Gender: F Tech: Location: [facility] Provider: MADELYN VICENTE Quality: Adequate Order [...] 43 cm/s Right Value Units FINDINGS: Performing Field Coordinator: Shelia Jameson RVT. Right Leg: The inflow EIA/WEB MARKETING STRATEGIST stent waveform is multiphasic. The proximal anastomosis(stented) waveform is multiphasic. There is presence arterial flow outside the thedistal stent dickinson (diameter 0.26cm, length of flow channel 1.5cm, peak [id number]) and may be due to incomplete aposition [...] at the distal graft level and patent WEB MARKETING STRATEGIST stent - DISCLAIMER: The study images and [...] Medellin MD FACS 04/10/2025 2:34:12 PM CDT us Madelyn Vicente MD PhD IMG US PROCEDURES Kelsea l Result * US Arterial Doppler Lower Extremity Bilateral (04/09/2025 10:54 AM CDT) Anatomical Region Laterality Modality Vascular Bilateral Ultrasound 04/09/2025 9:54 AM CDT Narrative 04/10/2025 2:18 PM CDT [facility] - Department of Vascular Surgery, Vascular Laboratory [address] [place] [address] Lower Extremity Arterial Doppler Report Patient Name: JEFFERY HAMILTON : 1970 Study Date: 04/09/2025 9:54:00 AM Gender: F Tech: Shelia Jameson [facility] Location: [facility] Provider: MADELYN VICENTE Quality: Adequate Order [...] mmHg Lt Brachial Pressure 164 mmHg Rt CUSTOMER SERVICE OPERATOR Pressure 144 mmHg Lt CUSTOMER SERVICE OPERATOR Pressure 131 mmHg Rt DPA Pressure 134 mmHg Lt DPA Pressure 129 mmHg Rt 1st Digit Pressure 98 mmHg Lt 1st Digit Pressure 103 mmHg Rt PT KAROLYN Resting 0.88 Lt PT KAROLYN Resting 0.8 Rt AT KAROLYN Resting 0.82 Lt AT KAROLYN Resting 0.79 Rt Digit/Arm Index 0.6 Lt Digit/Arm Index 0.63 Right Value Units Left Value Units FINDINGS: Performing Field Coordinator: Shelia Jameson RVT. Right Common Femoral Artery [...] Procedure Note Willy Medellin MD - 04/10/2025 [facility] - Department of Vascular Surgery,Vascular Laboratory [address] [place] [address] Lower Extremity Arterial Doppler Report Patient Name: JEFFERY HAMILTON : 1970 Study Date: 04/09/2025 9:54:00 AM Gender: F Tech: Shelia Jameson [facility] Location: [facility] Provider: MADELYN VICENTE Quality: Adequate Order [...] mmHg Lt Brachial Pressure 164 mmHg Rt CUSTOMER SERVICE OPERATOR Pressure 144 mmHg Lt CUSTOMER SERVICE OPERATOR Pressure 131 mmHg Rt DPA Pressure 134 mmHg Lt DPA Pressure 129 mmHg Rt 1st Digit Pressure 98 mmHg Lt 1st Digit Pressure 103 mmHg Rt PT KAROLYN Resting 0.88 Lt PT KAROLYN Resting 0.8 Rt AT KAROLYN Resting 0.82 Lt AT KAROLYN Resting 0.79 Rt Digit/Arm Index 0.6 Lt Digit/Arm Index 0.63 Right Value Units Left Value Units FINDINGS: Performing Field Coordinator: Shelia Jameson RVT. Right Common Femoral Artery [...] above. Electronically Signed By: Willy Medellin MD [facility] 04/10/2025 1:03:13 PM CDT us Madelyn Vicente MD PhD IMG US PROCEDURES Kelsea l Result from Last 3 Months Additional Health Concerns Infection Onset Date Last Indicated MDR gram neg/ESBL 07/23/2024 08/01/2024 Insurance [facility] MEDICARE ADVANTAGE [facility] MEDICARE [facility] MEDICARE ADVANTAGE Advance Directives For more information, please contact: [phone] * Full Code (Latest Code Status on [...] 11:02 AM 07/03/2024 11:02 AM Care Teams Snap Shearer Relationship Specialty Start Date End Date Mor Blancas MD [address] [place] [address] PCP - General Emergency Medicine 03/25/24 Flynn Ma MD [address] [facility] [address] [place] [address] Medical Oncologist/Winding Operator Medical Oncology 09/28/18 Colleen Diaz MD [address] [place], [place] [address] Referring Physician Nephrology 03/24/22 Derek Wilson MD [address] [place] [address] Referring Physician Obstetrics and Gynecology 06/26/23 Mar Jay MD [address] [place] [address] Surgeon Vascular Surgery 08/24/23 Mitch Austin DO [address] [facility] [address] [place] [address] Surgeon Surgery 09/26/23 Madelyn Vicetne MD PhD [id number] [place] [address] Registered Nurse Vascular Surgery 07/05/24 Eric Washington MD [address] [place] [address] Consulting Physician Plastic Surgery 07/29/24
--- OUTSIDE RECORDS SUMMARY | 2025-05-08 10:05 | XMS_ITS | Clinical Summary ---
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
--- OUTSIDE RECORDS SUMMARY | 2025-05-08 10:05 | XMS_ITS | Referral Summary ---
Author Organization [facility] Address [address] [place] [address] Care Team Providers Care Medical Payment Poster Name Role Phone Flynn Ma MD Unavailable [phone] Colleen Diaz MD Unavailable Derek Wilson MD Unavailable [phone] Mar Jay MD Unavailable [phone] Mitch Austin DO Unavailable [phone] Mor Blancas MD Primary Care Provide r Madelyn Vicente MD PhD Unavailable [phone] Eric Washington MD Unavailable [phone] Encounters Date Type Department Care Team Description 05/07/2025 8:30 AM CDT Infusion [facility] Cancer [address] [address] Iron deficiency anemia, unspecified iron deficiency anemia type (Primary Dx) 05/06/2025 Telephone [facility] Hematology [address] [facility] Floor 6 [place] [address] LeonardoDilipLinda 05/05/2025 Telephone [facility] Specialty Services [address] [place] [address] Gwen Gaston, RN 05/05/2025 Orders Only [facility] Oncology [address] [place] [address] Flynn Ma MD Iron deficiency anemia, unspecified iron deficiency anemia type (Primary Dx) 04/29/2025 Orders Only [facility] Oncology [address] [facility] Floor 6 [place] [phone] Mireya Briceno RN Iron deficiency anemia, unspecified iron deficiency anemia type (Primary Dx) 04/29/2025 Orders Only [facility] Surgery [address] [facility] Floor 1 [place] [address] Madelyn Vicente MD PhD Occlusion of celiac artery (Primary Dx); Encounter for surgical aftercare following surgery on the circulatory system 04/28/2025 11:15 AM CDT Office Visit [facility] Oncology [address] [place] [phone] Flynn Ma MD Chronic lymphoid leukemia, without mention of having achieved remission(204.10) (HCC) (Primary Dx) 04/28/2025 10:45 AM CDT Lab [address] [address] Chronic lymphoid leukemia, without mention of having achieved remission(204.10) (HCC); Iron deficiency anemia, unspecified iron deficiency anemia type 04/09/2025 Telephone [facility] Hematology [facility] Floor 6 [place] [phone] Stephani Robertson 04/09/2025 9:30 AM CDT Ancillary Procedure [facility] Vascular Lab at the [facility] Advanced Medicine [address] [place] [address] 8th [place] [address] [place] [phone] Encounter for surgical aftercare following surgery on the circulatory system; Presence of other vascular implants and grafts 04/09/2025 10:30 AM CDT Office Visit [facility] Surgery [facility] 8th [place] [address] [place] [phone] Madelyn Vicente MD PhD PAD (peripheral artery disease) (Primary Dx) 03/31/2025 Telephone [facility] Minimally Invasive Surgery [address] [facility] 12th Floor, [place] [address] Zuleika, Sheryl Schultz, A 03/28/2025 Telephone [facility] - [facility] Minimally Invasive Surgery [address] [facility] 12th Floor, [place] [address] Shreyl To, A 03/25/2025 Orders Only [facility] - [facility] Minimally Invasive Surgery [address] [facility] 12th Floor, [place] [address] Render, Sheryl Schultz, A 03/04/2025 Orders Only [facility] Hematology [address] [facility] Floor 6 [place] [phone] Stephani Robertson Acute lower limb ischemia (Primary [...] by mouth every 6 (six) hours 12/20/19 025 Discontinued azelastine (ASTELIN) 137 mcg (0.1 %) nasal spray 02/04/20 25 025 Discontinued cephalexin (KEFLEX) 500 mg capsule 03/05/20 025 Discontinued eszopiclone (LUNESTA) 1 mg tablet 02/04/20 25 025 Discontinued fluticasone propionate (FLONASE) 50 mcg/actuation nasal spray SPRAY 1 SPRAY IN EACH NOSTRIL TWICE DAILY 01/22/20 25 025 Discontinued methylPREDNISolon e (MEDROL DOSEPACK) 4 mg Dosepack 02/04/20 25 025 Discontinued predniSONE (DELTASONE) 20 mg tablet 03/05/20 25 025 Discontinued amoxicillin-clavu lanate (AUGMENTIN) 875-125 mg per tablet 03/12/20 25 025 Discontinued Active Problems Problem Noted [...] underwent emergent OR s/p thrombectomy of R INGOT PASSER, bypass graft, below knee popliteal. 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 - Diet as tolerated. Assessment & Plan (07/04/2024 8:28 AM CDT): Patient reports on and off again abdominal pain, N/V associated with food intake. Has really only been able to eat a few bits of toast as of recently. CT scan reviewed by Dr. Vicente and [facility] is open, requests GI consult for evaluation. [...] ordered Assessment & Plan (10/16/2024 2:42 PM PROOF PASSER): Hx RLE arterial occlusion/DVT 07/2023; h/o splenic [...] 07/01/2024 Assessment & Plan (10/16/2024 2:40 PM PROOF PASSER): Patient with previous right lower extremity bypass [...] 07/22: emergent OR s/p thrombectomy of R INGOT PASSER, bypass graft, below knee popliteal. R groin [...] 06/26/2023. Held Plavix/Eliquis due to bleeding. - Mule Rider consult on 08/08 - Hold home medication [...] e alcohol) [facility] Utilities Answer Date Recorded In the past 12 months has e [employer], gas, oil, or water company threatened to [...] often do you attend chur ch or adventism services? Never 12/16/2024 Do you belong to any clubs o r organizations such as gnosticist groups, unions, fraternal or athletic groups, or [...] any time in the past 12 m [facility], were you homeless or living in a long-term (including now)? No 12/16/2024 Personal Safety Answer Date Recorded Have you ever been in or are you currently in a harmful physical or emotional relationship or is someone making you feel afraid or unsafe? Denies 12/19/2024 Comments No Sex and Gender Information Value Date Recorded Sex Assigned at Not on file 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 PROOF PASSER Gender Identity Female 03/14/2022 6:19 PM CDT [...] deficiency anemia, unspecified iron deficiency anemia type Medical Devices Implanted Type Area Trailer Park Manager Device Identifier Shelf Expiration Date Model / Serial / Lot [employer] Riki Patch Vascuguard 0.88cm [id number] - [id number] Implanted:Qty : 1 on 07/01/2024 by Madelyn Vicente MD PhD at [facility] Other - see comments Right: Common Femoral Artery [employer] Riki [id number] 10/02/2025 [id number] / / [id number]- [id number] [employer] Riki Stent Peripheral [id number] m 6fr Self-Expandin g Blue Strl [id number] 30 - S00 - [id number] Implanted:Qty : 1 on 12/16/2024 by Claude Garza MD at [facility] Stent Right: Femoral [employer] Riki [id number] 05/20/2029 [id number] / / [id number] [employer] Riki Stent Peripheral [id number] m 6fr Self-Expandin g Blue Strl [id number] 30 - S00 - [id number] Implanted:Qty : 1 on 12/16/2024 by Claude Garza MD at [facility] Stent Right: Femoral [employer] Riki [id number] 05/20/2029 [id number] / 00 / [id number] System Closure Repair Femoral Artery Suture Mediated Perclose Prostyle 00267-74 - [id number] Implanted:Qty : 1 on 12/16/2024 by Claude Garza MD at [facility] Vascular Closure Device Left: Groin [employer] [id number] 08/08/2026 [id number] / / [id number] [employer] System Closure Repair Femoral Artery Suture Mediated Perclose Prostyle 22554-16 - [id number] Implanted:Qty : 1 on 12/16/2024 by Claude Garza MD at [facility] Vascular Closure Device Left: Groin [employer] [id number] 02/05/2025 [id number] / / [id number] [employer] Restrata Mini Matrix 100mg Micronized Powder Rmini-100 - [id number] Implanted:Qty : 1 on 07/16/2024 by Madelyn Vicente MD PhD at [facility] Right: Groin [employer] 07/11/2025 RMINI-10 0 / / [id number] [employer] Riki Patch Vascuguard 0.88cm [id number] - [id number] - [id number] Implanted:Qty : 1 on 07/22/2024 by Madelyn Vicente MD PhD at [facility] Right: Knee [employer] Riki [id number] 02/19/2026 [id number] / [id number]- [id number] / [id number]- [id number] [employer] System Closure Repair Femoral Artery Suture Mediated Perclose Prostyle 08128-19 - [id number] Implanted:Qty : 1 on 12/19/2024 by Claude Garza MD at [facility] Right: Groin [employer] [id number] 03/08/2026 32297-16 / / [id number] Procedures Procedure Name Priority Date/Time Associated Diagnosis [...] AM CDT 04/28/2025 11:08 AM CDT Kirsten Thornebonniesaman SUPERVISOR [facility] [employer] [employer] LAB BLOOD [place] Final Result [facility] Department [place] [address] * (ABNORMAL) Differential, auto (04/28/2025 11:08 AM CDT) Neutrophil abs 6.84(H) 1.50 - 6.50 K/cumm Comment:Testing performed by : [facility], [address] [place] [address] Imm gran abs 0.05 0.00 - 0.10 K/cumm [facility] Lymphocyte abs 3.35(H) 0.80 - 3.30 K/cumm [facility] Monocyte abs 0.71 0.20 - 0.80 K/cumm [facility] Eosinophil abs 0.26 0.00 - 0.50 K/cumm [facility] Basophil abs 0.10 0.00 - 0.10 K/cumm [facility] Neutrophil pct 60.5 % [facility] Comment: Interpretive Data Percent cell count reference ranges are not reported, since discordance with absolute values may lead to misinterpretation of CBC data. Current Interpretive Data was last revised on 2018. Imm gran pct 0.4 % [facility] Comment: Interpretive Data Percent cell count reference ranges are not reported, since discordance with absolute values may lead to misinterpretation of CBC data. Current Interpretive Data was last revised on 2018. Lymphocyte pct 29.6 % [facility] Comment: Interpretive Data Percent cell count reference ranges are not reported, since discordance with absolute values may lead to misinterpretation of CBC data. Current Interpretive Data was last revised on 2018. Monocyte pct 6.3 % [facility] Comment: Interpretive Data Percent cell count reference ranges are not reported, since discordance with absolute values may lead to misinterpretation of CBC data. Current Interpretive Data was last revised on 2018. Eosinophil pct 2.3 % [facility] Comment: Interpretive Data Percent cell count reference ranges are not reported, since discordance with absolute values may lead to misinterpretation of CBC data. Current Interpretive Data was last revised on 2018. Basophil pct 0.9 % [facility] Comment: Interpretive Data Percent cell count reference ranges are not reported, since discordance with absolute values may lead to misinterpretation of CBC data. Current Interpretive Data was last revised on 2018. Blood 04/28/2025 11:0 8 AM CDT 04/28/2025 11:08 AM CDT [facility] Final Result [facility] [place] [address] * (ABNORMAL) Iron profile w/ IBC (04/28/2025 11:08 AM CDT) Iron 30(L) 35 - 145 mcg/dL TIBC 400 250 - 400 mcg/dL [facility] Transferrin saturation 8(L) 20 - 50 % [facility] Blood 04/28/2025 11:0 8 AM CDT 04/28/2025 2:21 PM CDT [facility] LAB [facility] Final Result Performing Organization Address City/[facility]/ZIP Co de Phone Number [facility] Department [place] [address] * (ABNORMAL) CBC with auto differential (04/28/2025 11:08 AM CDT) WBC 11.31(H) 3.80 - 9.90 K/cumm Comment:Testing performed by : [address] [address] Hgb 10.7(L) 11.9 - 15.5 g/dL [facility] Comment:Testing performed by : [address] [address] Hct 36.5 35.6 - 45.5 % [facility] Comment:Testing performed by : [facility], [address] [place] [address] Plt 341 150 - 400 K/cumm [facility] Comment:Testing performed by : [facility], [address] [place] [address] MPV 9.7 9.1 - 12.3 fL [facility] RBC 4.63 3.90 - 5.20 M/cumm [facility] MCV 78.8(L) 81.3 - 96.4 fL [facility] MCH 23.1(L) 27.1 - 33.3 pg [facility] MCHC 29.3(L) 32.3 - 35.7 g/dL [facility] RDW CV 21.9(H) 11.1 - 14.9 % [facility] RDW SD 61.6(H) 35.7 - 48.1 fL [facility] NRBC abs 0.00 0.00 - 0.01 K/cumm [facility] ANC Prelim 6.84(H) 1.50 - 6.50 K/cumm [facility] Comment: Interpretive Data The rapid ANC is a preliminary automated count and may vary from the final ANC (Neut Abs) reported in the WBC differential that follows. Current interpretive data was last revised 2024. Blood 04/28/2025 11:0 8 AM CDT 04/28/2025 11:08 AM CDT Kirsten Roa NP LAB BLOOD [place] TUTTLE Final Result [facility] One [facility] Department [place] [address] * Lactate dehydrogenase (LD) (04/28/2025 11:08 AM CDT) Lactate dehydrogenase (LDH) 223 100 - 250 Units/L Comment:Testing performed by : [facility], [address] [place] [address] Blood 04/28/2025 11:0 8 AM CDT 04/28/2025 11:08 AM CDT Kirsten Negrita Cesiaducbethany SUPERVISOR [employer]ICE LAB BLOOD ORDE RABFRANSISCO Final Result Performing Organization Address City/[facility] Co de Phone Number [facility] [place] [address] * Ferritin (04/28/2025 11:08 AM CDT) Pathologist [facility] Ferritin 14 13 - 150 ng/mL Blood 04/28/2025 11:0 8 AM CDT 04/28/2025 2:21 PM CDT Kirsten Rees Danielrellsaman SUPERVISOR K[employer]HER DI[employer]ARY SERVICE LAB BLOOD ORDE RABLES Final Result Performing Organization Address [facility] de Phone Number [facility] [place] [address] * (ABNORMAL) Beta 2 microglobulin, serum (04/28/2025 11:08 AM CDT) Pathologist [facility] Beta 2 Microglobulin, Serum 3.60(H) 1.00 - 2.50 mg/L Comment: Interpretive Data The Jose Beta-2 microglobulin assay procedure was used. Results from different manufacturers or methods may not be comparable. Serial testing should be performed using the same method. Blood 04/28/2025 11:0 8 AM CDT 04/28/2025 2:21 PM CDT Kirsten Negrita Sanchezkeatonbethany SUPERVISOR KOSHER DIETARY SERVICE LAB BLOOD ORDE RABFRANSISCO Final Result Performing Organization Address [facility] [place] [address] * Comprehensive metabolic panel (04/28/2025 11:08 AM CDT) Pathologist [facility] Sodium 145 135 - 145 mmol/L Comment:Testing performed by : [facility], [address] [facility] [address] Potassium, pl 4.2 3.3 - 4.9 mmol/L [facility] Chloride 110 97 - 110 mmol/L [facility] CO2 28 22 - 32 mmol/L [facility] Anion gap 7 2 - 15 mmol/L [facility] BUN 17 6 - 25 mg/dL [facility] Creatinine 1.00 0.60 - 1.10 mg/dL [facility] Glucose 93 70 - 199 mg/dL [facility] Comment: Interpretive Data Fasting glucose >/= [...] 2022. Calcium 9.4 8.5 - 10.3 mg/dL [facility] Bilirubin, total 0.3 0.1 - 1.2 mg/dL [facility] Protein, pl 6.8 6.5 - 8.5 g/dL [facility] Albumin 3.8 3.5 - 5.0 g/dL [facility] Alk phos 121 40 - 130 Units/L [facility] ALT 12 7 - 45 Units/L [facility] AST 16 10 - 45 Units/L [facility] Blood 04/28/2025 11:0 8 AM CDT 04/28/2025 11:08 AM CDT Kirsten Roa NP LAB BLOOD [place] TUTTLE Final Result [facility] Department [place] [address] * US Arterial Duplex Lower Extremity Right Limited (04/09/2025 10:54 AM CDT) Anatomical Region Laterality Modality Vascular Right Ultrasound 04/09/2025 9:25 AM CDT Narrative 04/10/2025 2:34 PM CDT [facility] - Department of Vascular Surgery, Vascular Laboratory [address] [place], [place] [id number] Lower Extremity Arterial Duplex - Bypass Graft Report Patient Name: JEFFERY HAMILTON : 1970 Study Date: 04/09/2025 9:25:37 AM Gender: F Tech: Location: [facility] Provider: MADELYN VICENTE Quality: Adequate Order Provider: [...] 43 cm/s Right Value Units FINDINGS: Performing Broom Handle Dipper: Shelia Jameson RVT. Right Leg: The inflow EIA/INGOT PASSER stent waveform is multiphasic. The proximal anastomosis [...] at the distal graft level and patent INGOT PASSER stent - DISCLAIMER: The study images and [...] Procedure Note Willy Medellin MD - 04/10/2025 [facility] - Department of Vascular Surgery,Vascular Laboratory [address] [place] [address] Lower Extremity Arterial Duplex - Bypass Graft Report Patient Name: JEFEFRY HAMILTON : 1970 Study Date: 04/09/2025 9:25:37 AM Gender: F Tech: Location: [facility] Ref Provider: MADELYN VICENTE Quality: Adequate Order [...] 43 cm/s Right Value Units FINDINGS: Performing Broom Handle Dipper: Shelia Jameson RVT. Right Leg: The inflow EIA/INGOT PASSER stent waveform is multiphasic. The proximal anastomosis(stented) waveform is multiphasic. There is presence arterial flow outside the thedistal stent dickinson (diameter 0.26cm, length of flow channel 1.5cm, peak [id number]) and may be due to incomplete aposition [...] at the distal graft level and patent INGOT PASSER stent - DISCLAIMER: The study images and [...] above. Electronically Signed By: Willy Medellin MD [facility] 04/10/2025 2:34:12 PM CDT us Madelyn Vicente MD PhD IMG US PROCEDURES Kelsea l Result * US Arterial Doppler Lower Extremity Bilateral (04/09/2025 10:54 AM CDT) Anatomical Region Laterality Modality Vascular Bilateral Ultrasound 04/09/2025 9:54 AM CDT Narrative 04/10/2025 2:18 PM CDT [facility] - Department of Vascular Surgery, Vascular Laboratory [address] [place] [address] Lower Extremity Arterial Doppler Report Patient Name: JEFFERY HAMILTON : 1970 Study Date: 04/09/2025 9:54:00 AM Gender: F Tech: Shelia Jaemson RVT Location: [facility] Provider: MADELYN VICENTE Quality: Adequate Order Provider: [...] mmHg Lt Brachial Pressure 164 mmHg Rt WIRE CHARGER Pressure 144 mmHg Lt WIRE CHARGER Pressure 131 mmHg Rt DPA Pressure 134 mmHg Lt DPA Pressure 129 mmHg Rt 1st Digit Pressure 98 mmHg Lt 1st Digit Pressure 103 mmHg Rt PT KAROLYN Resting 0.88 Lt PT KAROLYN Resting 0.8 Rt AT KAROLYN Resting 0.82 Lt AT KAROLYN Resting 0.79 Rt Digit/Arm Index 0.6 Lt Digit/Arm Index 0.63 Right Value Units Left Value Units FINDINGS: Performing Broom Handle Dipper: Shelia Jameson RVT. Right Common Femoral Artery [...] Procedure Note Willy Medellin MD - 04/10/2025 [facility] - Department of Vascular Surgery,Vascular Laboratory [address] [place] [address] Lower Extremity Arterial Doppler Report Patient Name: JEFFERY HAMILTON : 1970 Study Date: 04/09/2025 9:54:00 AM Gender: F Tech: Shelia Jameson [facility] Location: [facility] Provider: MADELYN VICENTE Quality: Adequate Order Provider: [...] mmHg Lt Brachial Pressure 164 mmHg Rt WIRE CHARGER Pressure 144 mmHg Lt WIRE CHARGER Pressure 131 mmHg Rt DPA Pressure 134 mmHg Lt DPA Pressure 129 mmHg Rt 1st Digit Pressure 98 mmHg Lt 1st Digit Pressure 103 mmHg Rt PT KAROLYN Resting 0.88 Lt PT KAROLYN Resting 0.8 Rt AT KAROLYN Resting 0.82 Lt AT KAROLYN Resting 0.79 Rt Digit/Arm Index 0.6 Lt Digit/Arm Index 0.63 Right Value Units Left Value Units FINDINGS: Performing Broom Handle Dipper: Shelia Jameson RVT. Right Common Femoral Artery [...] above. Electronically Signed By: Willy Medellin MD [facility] 04/10/2025 1:03:13 PM CDT [facility] Cindy Vicente MD PhD IMG US PROCEDURES Kelsea l Result from Last 3 Months Additional Health Concerns Infection Onset Date Last Indicated MDR gram neg/ESBL 07/23/2024 08/01/2024 Insurance [facility] MEDICARE ADVANTAGE [facility] MEDICARE [facility] MEDICARE ADVANTAGE Advance Directives For more information, please contact: [phone] * Full Code (Latest Code Status on [...] 11:02 AM 07/03/2024 11:02 AM Care Teams Medical Payment Poster Relationship Specialty Start Date End Date Mor Blancas MD [address] [place] [address] PCP - General Emergency Medicine 03/25/24 Flynn Ma MD [address] [facility] [address] [place] [address] Medical Oncologist/Lead Javascript Engineer Medical Oncology 09/28/18 Colleen Diaz MD [address] [place] [address] Referring Physician Nephrology 03/24/22 Derek Wilson MD [address] [facility] [place] [address] Referring Physician Obstetrics and Gynecology 06/26/23 Mar Jay MD [address] [facility] [place] [address] Surgeon Vascular Surgery 08/24/23 Mitch Austin DO [address] [place] [address] Surgeon Surgery 09/26/23 Madelyn Vicente MD PhD [id number] [place] [address] Registered Nurse Vascular Surgery 07/05/24 Eric [place] MD [address] [place] [address] Consulting Physician Plastic Surgery 07/29/24
--- OUTSIDE RECORDS SUMMARY | 2025-05-08 10:05 | XMS_ITS | Encounter Summary ---
Author Organization [facility] Address [address] [place] [address] Phone Care Team Providers Care Dehydrator Name Role Phone Flynn Ma MD Unavailable Ari Elmore DO Primary Care Provider Colleen Diaz MD Unavailable Derek Wilson MD Unavailable [phone] Mar Jay MD Unavailable [phone] Mitch Austin DO Unavailable [phone] Mor Blancas MD Primary Care Provide r Madelyn Vicente MD PhD Unavailable [phone] Eric Washington MD Unavailable [phone] Encounter Details Date Type Department Care Team [...] on file 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 GEOSPATIAL ENGINEER Gender Identity Female 03/14/2022 6:19 PM [...] documented as of this encounter Care Teams Dehydrator Relationship Specialty Start Date End Date Ari Elmore DO [address] [place] [address] PCP - General Family Medicine 12/16/20 03/24/24 Mor Blancas MD [address] [place] [address] PCP - General Emergency Medicine 03/25/24 Flynn Ma MD [address] [facility] [address] [place] [address] Medical Oncologist/Main [employer] Station Engineer Medical Oncology 09/28/18 Colleen Diaz MD [address] [place] [address] Referring Physician Nephrology 03/24/22 Derek Wilson MD [address] [place] [address] Referring Physician Obstetrics and Gynecology 06/26/23 Mar Jay MD [address] [place] [address] Surgeon Vascular Surgery 08/24/23 Mitch Austin DO [address] [place] [address] Surgeon Surgery 09/26/23 Madelyn Vicente MD PhD [address] [facility] [id number] [place] [address] Registered Nurse Vascular Surgery 07/05/24 Eric Washington MD [address] [place] [address] Consulting Physician Plastic Surgery 07/29/24 documented as of this encounter
== END 2025-05-08 09:56 | disposition home or self-care (01) ==
LOC: ANHAUDIO 09:56
PROVIDERS: PCP Emergency Medicine; Visit Provider Otolaryngology
DX: H90.12 Conductive hearing loss, unilateral, left ear, with unrestricted hearing on the contralateral side (principal)
CPT/HCPCS: 92557; 92567

== ENCOUNTER 2025-07-17 09:44 | Outpatient (CLI) | payer MEDICARE, SELFPAY ==
[2025-07-17 10:10] LABS: Hemoglobin A1C 5.6 % (<5.7)
[2025-07-17 10:54] LABS: Alanine Aminotransferase 16 U/L (6-35); Albumin Level 4.0 g/dL (3.5-5.1); Alkaline Phosphatase 91 U/L (38-126); Anion Gap 8 mmol/L (4-12); Aspartate Amino Transferase 22 U/L (14-36); Bilirubin,Total 0.4 mg/dL (0.2-1.3); Blood Urea Nitrogen 18 mg/dL (7-17); Calcium 9.7 mg/dL (8.4-10.2); Carbon Dioxide 26 mmol/L (22-30); Chloride 111 mmol/L (98-107); Cholesterol 277 mg/dL (0-200); Estimated Glomerular Filt Rate 52; Glucose 93 mg/dL (65-110); HDL Direct 56 mg/dL; Osmolality Calculated 301 mOsm/kg (285-295); Potassium 4.3 mmol/L (3.4-5.0); Sodium 145 mmol/L (137-145); Total Protein 7.2 g/dL (6.3-8.2); Triglycerides 182 mg/dL (<150)
== END 2025-07-17 09:45 | disposition home or self-care (01) ==
LOC: CHSLAB 09:46
PROVIDERS: PCP Emergency Medicine; Visit Provider Emergency Medicine
DX: E11.9 Type 2 diabetes mellitus without complications (principal); E55.9 Vitamin D deficiency, unspecified; E78.5 Hyperlipidemia, unspecified
CPT/HCPCS: 36415; 80053; 80061; 82306; 83036